=== PATIENT | female | born 1950 | race Caucasian/White ===

== ENCOUNTER 2016-06-02 11:26 | Inpatient (IN) | payer OTHER, MEDICARE ==
[~2016-06-02] VITALS: Ht 149.9 cm; Wt 73.0 kg
[~2016-06-02 11:26] MED LIST: HMLI SC; HYDR-5688 PO; HYDR12.56 PO; LISI-461 PO; METF1000 PO; METH10TA6 PO; PANT40TA PO; PXL/40 PO; SIMV40TA4 PO
[2016-06-02] MEDS ORDERED: INSPMPHMLG SC ×2 (11:44)
[2016-06-02] MEDS ORDERED: AZIT250T PO (11:44)
[2016-06-02] MEDS ORDERED: BENZ100C18 PO (11:44)
[2016-06-02 12:09] LABS: BASO % 0.4 %; BASO ABS # 0.04 K/uL (0-0.2); COMPLETE YES; EOS % 0.7 %; HEMATOCRIT 43.9 % (37-47); IG% 0.3 %; LYMPH % 20.9 %; LYMPH ABS # 2.37 K/uL (1.2-3.4); MEAN CELL VOLUME 87.6 fL (80-100); MEAN CORPUSCULAR HEMOGLOBIN 31.1 pg (25-34); MEAN CORPUSCULAR HGB CONC 35.5 g/dl (32-36); MEAN PLATELET VOLUME 10.8 fL (7.4-10.4); MONO % 10.3 %; NEUT % 67.4 %; PLATELET COUNT 331 K/uL (130-400); RED BLOOD COUNT 5.01 M/uL (4.2-5.4); WHITE BLOOD COUNT 11.32 K/uL (4.8-10.8)
[2016-06-02] MEDS ORDERED: SODIUM CHLORIDE 0.9% 500ML 500 ML IV STA (12:14)
[2016-06-02 12:23] LABS: PARTIAL THROMBOPLASTIN RATIO 0.9; PROTHROMBIN TIME (PATIENT) 11.1 SECONDS (9.0-12.0)
[2016-06-02 12:35] LABS: CREATININE 1.1 mg/dl (0.60-1.20)
[2016-06-02 12:36] LABS: ALB/GLOB RATIO 0.8 (0.9-2); BUN/CREATININE RATIO 14.5 (10-20); CALCIUM 9.5 mg/dl (8.5-10.1); POTASSIUM 3.9 mmol/L (3.5-5.1)
--- NOTE | 2016-06-02 12:42 | DIAGNOSTIC IMAGING REPORT ---
CHEST ONE VIEW PORTABLE CLINICAL HISTORY: Shortness of breath COMPARISON STUDY: 07/17/2015 FINDINGS: The cardiac and mediastinal contours are normal. There is no evidence of focal pulmonary consolidation. There is no evidence of failure. No pleural effusions are visualized.[ IMPRESSION: No active disease in the chest. Electronically signed by: Darnell Carvajal M.D. 06/02/2016 12:41 PM Dictated Date/Time: 06/02/2016 12:40 PM
--- NOTE | 2016-06-02 12:47 | EMERGENCY ROOM VISIT NOTE ---
History Report prepared by Janette: Petey Adam Under the Supervision of: Dr. Rahul Mccarty M.D. First contact with patient: 12:08 Chief Complaint: FLU LIKE SX Stated Complaint: FLU SYMPTOMS History of Present Illness The patient is a 65 year old female who presents to the Emergency Room with complaints of a constant cough for the past two weeks. The patient additionally complains of having a headache. She states that she is coughing up some yellowish brown mucous. She additionally states that she hasn't taken her insulin for the past two weeks, and her sugars have been high. The patient denies any smoking. She additionally states that she has been urinating frequently, and she is always thirsty. Source of History: patient Onset: a week ago Position: other (global) Quality: other (cough) Timing: constant Associated Symptoms: + headache Review of Systems See HPI for pertinent positives & negatives. A total of 10 systems reviewed and were otherwise negative. Past Medical & Surgical Medical Problems: (1) Anxiety State Nos (2) Diabetes (3) Diabetes mellitus, type 2 (4) Dyslipidemia (5) Esophageal Reflux (6) GERD (gastroesophageal reflux disease) (7) Hyperglycemia (8) Hyperlipidemia Nec/Nos (9) Hypertension (10) Hypertension Nos (11) Hyperthyroidism (12) Hypothyroidism Nos Surgical Problems: (1) Hx of cholecystectomy (2) Rotator cuff rupture (3) Status post cholecystectomy Family History Diabetes mellitus FHx: cancer FHx: gallbladder disease Hypertension Social History Smoking Status: Never Smoker Alcohol Use: none Drug Use: none Marital Status: Housing Status: lives with family Current/Historical Medications Scheduled Atorvastatin (Atorvastatin Calcium), 40 MG PO DAILY Azithromycin (Zithromax), 250 MG PO DAILY Hydrochlorothiazide (Hctz), 12.5 MG PO DAILY Insulin Lispro Protamine & Lis (Humalog Mix 75/25 Kwikpen), 0 SQ UD Lisinopril (Zestril), 10 MG PO DAILY Metformin Hcl (Glucophage), 1,000 MG PO BID Methimazole (Tapazole), 10 MG PO DAILY Pantoprazole (Protonix), 40 MG PO DAILY Paroxetine (Paxil), 40 MG PO DAILY Scheduled PRN Benzonatate (Tessalon Perles), 100 MG PO TID PRN for Cough Allergies Coded Allergies: No Known Allergies (Unverified , 03/19/16) Physical Exam Vital Signs Date Time Temp Pulse Resp B/P Pulse Ox O2 Delivery O2 Flow Rate FiO2 06/02/16 15:00 100 20 136/96 100 Room Air 06/02/16 13:30 95 20 147/92 96 Room Air 06/02/16 12:08 95 Room Air 06/02/16 12:04 103 06/02/16 11:29 36.3 101 16 174/108 98 Room Air Physical Exam GENERAL: Patient is in mild distress HEENT: No acute trauma, normocephalic atraumatic, mucous membranes dry, no nasal congestion, no scleral icterus. NECK: No stridor, no adenopathy, no meningismus, trachea is midline. LUNGS: Junky cough with crackles in the bilateral lungs. HEART: Mildly tachycardic rate and regular rhythm. No murmurs, rubs, gallops appreciated. ABDOMEN: Soft, nontender, bowel sounds positive, no masses appreciated, no peritonitis. BACK: No midline tenderness, no CVA tenderness EXTREMITIES: Normal motion all extremities, no cyanosis, no edema. NEUROLOGIC: Alert and oriented, no acute motor or sensory deficits, no focal weakness, cranial nerves grossly intact. SKIN: No rash, no jaundice, no diaphoresis. Medical Decision & Procedures ER Provider Diagnostic Interpretation: X ray results are stated below per my interpretation and the radiologist's interpretation. CHEST ONE VIEW PORTABLE CLINICAL HISTORY: Shortness of breath COMPARISON STUDY: 07/17/2015 FINDINGS: The cardiac and mediastinal contours are normal. There is no evidence of focal pulmonary consolidation. There is no evidence of failure. No pleural effusions are visualized.[ IMPRESSION: No active disease in the chest. Electronically signed by: Darnell Carvajal M.D. 06/02/2016 12:41 PM Dictated Date/Time: 06/02/2016 12:40 PM Laboratory Results 06/02/16 11:55 Red Blood Count 5.01, Mean Corpuscular Volume 87.6, Mean Corpuscular Hemoglobin 31.1, Mean Corpuscular Hemoglobin Concent 35.5, Mean Platelet Volume 10.8, Neutrophils (%) (Auto) 67.4, Lymphocytes (%) (Auto) 20.9, Monocytes (%) (Auto) 10.3, Eosinophils (%) (Auto) 0.7, Basophils (%) (Auto) 0.4, Neutrophils # (Auto ) 7.63, Lymphocytes # (Auto) 2.37, Monocytes # (Auto) 1.17, Eosinophils # (Auto ) 0.08, Basophils # (Auto) 0.04 06/02/16 11:55 Test 06/02/16 11:52 06/02/16 11:53 06/02/16 11:55 Influenza Type A Antigen Neg for Influ A (NEG) Influenza Type B Antigen Neg for Influ B (NEG) Urine Color YELLOW Urine Appearance CLEAR (CLEAR) Urine pH 5.0 (4.5-7.5) Urine Specific [place] 1.035 (1.000-1.030) Urine Protein NEG (NEG) Urine Glucose (UA) 3+ (NEG) Urine Ketones 2+ (NEG) Urine Occult Blood NEG (NEG) Urine Nitrite NEG (NEG) Urine Bilirubin NEG (NEG) Urine Urobilinogen NEG (NEG) Urine Leukocyte Esterase NEG (NEG) Urine WBC (Auto) 1-5 /hpf (0-5) Urine RBC (Auto) 0-4 /hpf (0-4) Urine Hyaline Casts (Auto) 0 /lpf (0-5) Urine Epithelial Cells (Auto) 20-30 /lpf (0-5) Urine Bacteria (Auto) NEG (NEG) White Blood Count 11.32 K/uL (4.8-10.8) Red Blood Count 5.01 M/uL (4.2-5.4) Hemoglobin 15.6 g/dL (12.0-16.0) Hematocrit 43.9 % (37-47) Mean Corpuscular Volume 87.6 fL (80-100) Mean Corpuscular Hemoglobin 31.1 pg (25-34) Mean Corpuscular Hemoglobin Concent 35.5 g/dl (32-36) Platelet Count 331 K/uL (130-400) Mean Platelet Volume 10.8 fL (7.4-10.4) Neutrophils (%) (Auto) 67.4 % Lymphocytes (%) (Auto) 20.9 % Monocytes (%) (Auto) 10.3 % Eosinophils (%) (Auto) 0.7 % Basophils (%) (Auto) 0.4 % Neutrophils # (Auto) 7.63 K/uL (1.4-6.5) Lymphocytes # (Auto) 2.37 K/uL (1.2-3.4) Monocytes # (Auto) 1.17 K/uL (0.11-0.59) Eosinophils # (Auto) 0.08 K/uL (0-0.5) Basophils # (Auto) 0.04 K/uL (0-0.2) RDW Standard Deviation 39.1 fL (36.4-46.3) RDW Coefficient of Variation 12.3 % (11.5-14.5) Immature Granulocyte % (Auto) 0.3 % Immature Granulocyte # (Auto) 0.03 K/uL (0.00-0.02) Prothrombin Time 11.1 SECONDS (9.0-12.0) Prothromb Time International Ratio 1.0 (0.9-1.1) Activated Partial Thromboplast Time 23.5 SECONDS (21.0-31.0) Partial Thromboplastin Ratio 0.9 Anion Gap 13.0 mmol/L (3-11) Est Creatinine Clear Calc Drug Dose 43.8 ml/min Estimated GFR () 60.6 Estimated GFR (Non- 52.3 BUN/Creatinine Ratio 14.5 (10-20) Calcium Level 9.5 mg/dl (8.5-10.1) Total Bilirubin 0.5 mg/dl (0.2-1) Aspartate Amino Transf (AST/SGOT) 6 U/L (15-37) Alanine Aminotransferase (ALT/SGPT) 15 U/L (12-78) Alkaline Phosphatase 160 U/L (45-117) Total Protein 8.6 gm/dl (6.4-8.2) Albumin 3.7 gm/dl (3.4-5.0) Globulin 4.9 gm/dl (2.5-4.0) Albumin/Globulin Ratio 0.8 (0.9-2) Beta-Hydroxybutyric Acid 32.47 mg/dL (0.2-2.81) Laboratory results as reviewed by me. Medications Administered Medications (Trade) Dose Ordered Sig/Junaid Route Start Time Stop Time Status Last Admin Dose Admin Sodium Chloride (Nss 500ml) 500 ml @ 999 mls/hr Q31M STAT IV 06/02/16 12:14 06/02/16 12:44 DC 06/02/16 12:22 999 MLS/HR Insulin Human Regular 10 units 10 units NOW STAT IV 06/02/16 13:15 06/02/16 13:16 DC 06/02/16 13:35 10 UNITS Sodium Chloride (Nss 1000ml) 1,000 ml @ 75 mls/hr [id number] STAT IV 06/02/16 13:31 06/02/16 16:19 DC 06/02/16 13:36 75 MLS/HR Azithromycin (Zithromax Tab) 500 mg NOW STAT PO 06/02/16 14:53 06/02/16 14:54 DC 06/02/16 15:34 500 MG ECG Indication: other (flu like symptoms) Rate (beats per minute): 82 Rhythm: normal sinus Findings: no acute ischemic change, no ectopy ED Course 1210: The patient was evaluated in room C12. A complete history and physical exam was performed. 1214: Sodium Chloride 500 ml @ 999 mls/hr IV 1315: novoLIN-R U-100 per unit 10units IV 1331: Sodium Chloride 1000 ml @ 75 mls/hr IV 1445: I reevaluated the patient, and she was resting. 1452: I discussed the patient's case with Dr. Fong, and he feels that the patient will need to be brought into the hospital for better blood glucose management. 1453: Azithromycin Tab 500mg PO Medical Decision Differential: Infectious, Reactive Airway Disease, Pneumonia, Pneumothorax, COPD , CHF, ACS, Pulmonary Embolism, MSK, GI, Dissection, amongst other etiologies entertained. 65 yr old female arrives for evaluation of cough, though admits also elevated BG and increased urination at home. CXR clear and UA with ketones/glucose. BG is 600 with elevated beta though normal CO2 thus I feel she is not DKA. She was given fluids and IV insulin with mild improvement in BG though still quite elevated. Given unable to get this under control at home will bring in for further treatment/evaluation. No evidence of pneumonia and without significant wheezing would avoid steroids in this patient with significantly elevated blood glucose. Stable and in no distress. Consults Time Called: 1450 Consulting Physician: Dr. Fong Returned Call: [phone] I discussed the patient's case with Dr. Fong, and he feels that the patient will need to be brought into the hospital for better blood glucose management. Impression Primary Impression: Bronchitis Additional Impression: Hyperglycemia Scribe Attestation The scribe's documentation has been prepared under my direction and personally reviewed by me in its entirety. I confirm that the note above accurately reflects all work, treatment, procedures, and medical decision making performed by me. Departure Information Dispostion Being Evaluated By Hospitalist Referrals No Doctor, Assigned (PCP) Problem Qualifiers
[2016-06-02 12:48] LABS: BETA-HYDROXYBUTYRATE 32.47 mg/dL (0.2-2.81)
[2016-06-02] MEDS ORDERED: NovoLIN-R INSULIN PER UNIT CHARGE IV STA (13:15)
[2016-06-02] MEDS ORDERED: SODIUM CHLORIDE 0.9% 1000ML 1,000 ML IV STA (13:31)
[2016-06-02 14:00] LABS: URINE APPEARANCE CLEAR (CLEAR); URINE BILIRUBIN NEG (NEG); URINE COLOR YELLOW; URINE EPITHELIAL CELL AUTO 20-30 /lpf (0-5); URINE NITRITE NEG (NEG); URINE SPECIFIC GRAVITY 1.035 (1.000-1.030); UROBILINOGEN NEG (NEG); ZZUR CULT IF INDIC CLEAN CATCH NO
[2016-06-02 14:04] LABS: MANUAL MICROSCOPIC REQUIRED? NO; REVIEW REQ? NO
[2016-06-02] MEDS ORDERED: AZITHROMYCIN 250 MG TAB PO STA (14:53)
--- NOTE | 2016-06-02 15:07 | History and Physical ---
History & Physical Date & Time of Service: Jun 02, 2016 at 15:08 . Chief Complaint: cough, polyuria, polydipsia . Primary Care Physician: Dr. Herman . History of Present Illness Source: patient, clinic records, hospital records 65-year-old female followed by Dr. Herman. History of hypertension, diabetes mellitus type 2, and other problems noted below. Diabetes has been managed with metformin and insulin, most recently Humalog Mix 75/25. She is the process of switching pharmacies and ran out of her insulin about 2 weeks ago. 6 days ago she developed a congested cough. Cough productive of brown sputum. No fever, wheezing, dyspnea, chest pain. She was seen in clinic yesterday and prescribed azithromycin for bronchitis. She started taking the azithromycin yesterday, but has not noticed any improvement of her cough yet. Over the past week or so she has been experiencing polyuria and polydipsia. She has not checked her blood sugars at home on a regular basis. Came to ED today because persistent cough. Found to have a random blood sugar greater than 600. Referred to Hospital Medicine service for admission and further management. . Past Medical/Surgical History Chronic Medical Problems: (1) Anxiety State Nos Status: Chronic (3) Diabetes mellitus, type 2 Status: Chronic (4) Dyslipidemia Status: Chronic (6) GERD (gastroesophageal reflux disease) Status: Chronic (9) Hypertension Status: Chronic (11) Hyperthyroidism Status: Chronic Surgical Problems: (2) Rotator cuff rupture Status: Resolved (3) Status post cholecystectomy Status: Chronic . Family History FATHER Diabetes mellitus Lung cancer Prostate cancer MOTHER Diabetes mellitus DAUGHTER Pulmonary embolism Social History Smoking Status: Never Smoker Alcohol Use: occasionally Drug Use: none Marital Status: Housing status: lives with family Immunizations History of Influenza Vaccine: No History of Tetanus Vaccine?: unknown History of Pneumococcal: Yes History of Hepatitis B Vaccine: No Multi-Drug Resistant Organisms History of MDRO: No Allergies Coded Allergies: No Known Allergies (Unverified , 03/19/16) Home Medications Scheduled Atorvastatin (Atorvastatin Calcium), 40 MG PO DAILY Azithromycin (Zithromax), 250 MG PO DAILY Hydrochlorothiazide (Hctz), 12.5 MG PO DAILY Insulin Lispro Protamine & Lis (Humalog Mix 75/25 Kwikpen), 0 SQ UD Lisinopril (Zestril), 10 MG PO DAILY Metformin Hcl (Glucophage), 1,000 MG PO BID Methimazole (Tapazole), 10 MG PO DAILY Pantoprazole (Protonix), 40 MG PO DAILY Paroxetine (Paxil), 40 MG PO DAILY Scheduled PRN Benzonatate (Tessalon Perles), 100 MG PO TID PRN for Cough Review of Systems Constitutional: + weight loss (intentional), No chills, No fever Eyes: No diplopia, No worsening of vision ENT: + nasal symptoms, No hearing loss, No sore throat Respiratory: + problem reported (as noted above in HPI) Cardiovascular: No chest pain, No edema Abdomen: No GI bleeding, No diarrhea, No nausea, No pain, No vomiting Musculoskeletal: + joint pain Genitourinary - Female: No dysuria, No hematuria Neurologic: + weakness Psychiatric: + depression symptoms Endocrine: + excessive thirst, + excessive urination, + fatigue Hematologic / Lymphatic: No abnormal bleeding/bruising Integumentary: No itch, No new/changing skin lesions, No rash Physical Exam Vital Signs Date Time Temp Pulse Resp B/P Pulse Ox O2 Delivery O2 Flow Rate FiO2 06/02/16 13:30 95 20 147/92 96 Room Air 06/02/16 12:08 95 Room Air 06/02/16 12:04 103 06/02/16 11:29 36.3 101 16 174/108 98 Room Air General Appearance: WD/WN, no apparent distress Head: normocephalic, atraumatic Eyes: normal inspection, PERRL, EOMI, sclerae normal, + pertinent finding ( conjunctivae pink) ENT: hearing grossly normal, pharynx normal, + pertinent finding (edentulous, upper dentures) Neck: supple, no adenopathy, trachea midline, + thyroid abnormalities (thyroid prominent) Respiratory/Chest: + rhonchi (few), + wheezing (mild) Cardiovascular: regular rate, rhythm, no edema, no gallop, no JVD, no murmur, normal peripheral pulses Abdomen/GI: normal bowel sounds, non tender, soft, no organomegaly, no pulsatile mass Extremities/Musculoskelatal: normal inspection, no calf tenderness, normal capillary refill, no pedal edema, + pertinent finding (no diabetic foot lesions) Neurologic/Psych: perishable fruit inspector II-XII nml as tested (PERRL, EOMI, no facial palsy), no motor/sensory deficits (upper and lower extremities 5/5), alert, normal mood/ affect, oriented x 3 Skin: normal color, warm/dry, no rash Lymphatic: no adenopathy Diagnostics Laboratory Results Results Past 24 Hours Test 06/02/16 11:52 06/02/16 11:53 06/02/16 11:55 06/02/16 14:00 Range/Units Influenza Type A Antigen Neg for Influ A NEG Influenza Type B Antigen Neg for Influ B NEG Urine Color YELLOW Urine Appearance CLEAR CLEAR Urine pH 5.0 4.5-7.5 Urine Specific [place] 1.035 1.000-1.030 Urine Protein NEG NEG Urine Glucose (UA) 3+ NEG Urine Ketones 2+ NEG Urine Occult Blood NEG NEG Urine Nitrite NEG NEG Urine Bilirubin NEG NEG Urine Urobilinogen NEG NEG Urine Leukocyte Esterase NEG NEG Urine WBC (Auto) 1-5 0-5 /hpf Urine RBC (Auto) 0-4 0-4 /hpf Urine Hyaline Casts (Auto) 0 0-5 /lpf Urine Epithelial Cells (Auto) 20-30 0-5 /lpf Urine Bacteria (Auto) NEG NEG White Blood Count 11.32 4.8-10.8 K/uL Red Blood Count 5.01 4.2-5.4 M/uL Hemoglobin 15.6 12.0-16.0 g/dL Hematocrit 43.9 37-47 % Mean Corpuscular Volume 87.6 80-100 fL Mean Corpuscular Hemoglobin 31.1 25-34 pg Mean Corpuscular Hemoglobin Concent 35.5 32-36 g/dl Platelet Count 331 130-400 K/uL Mean Platelet Volume 10.8 7.4-10.4 fL Neutrophils (%) (Auto) 67.4 % Lymphocytes (%) (Auto) 20.9 % Monocytes (%) (Auto) 10.3 % Eosinophils (%) (Auto) 0.7 % Basophils (%) (Auto) 0.4 % Neutrophils # (Auto) 7.63 1.4-6.5 K/uL Lymphocytes # (Auto) 2.37 1.2-3.4 K/uL Monocytes # (Auto) 1.17 0.11-0.59 K/uL Eosinophils # (Auto) 0.08 0-0.5 K/uL Basophils # (Auto) 0.04 0-0.2 K/uL RDW Standard Deviation 39.1 36.4-46.3 fL RDW Coefficient of Variation 12.3 11.5-14.5 % Immature Granulocyte % (Auto) 0.3 % Immature Granulocyte # (Auto) 0.03 0.00-0.02 K/uL Prothrombin Time 11.1 9.0-12.0 SECONDS Prothromb Time International Ratio 1.0 0.9-1.1 Activated Partial Thromboplast Time 23.5 21.0-31.0 SECONDS Partial Thromboplastin Ratio 0.9 Sodium Level 131 136-145 mmol/L Potassium Level 3.9 3.5-5.1 mmol/L Chloride Level 94 98-107 mmol/L Carbon Dioxide Level 24 21-32 mmol/L Anion Gap 13.0 3-11 mmol/L Blood Urea Nitrogen 16 7-18 mg/dl Creatinine 1.10 0.60-1.20 mg/dl Est Creatinine Clear Calc Drug Dose 43.8 ml/min Estimated GFR () 60.6 Estimated GFR (Non- 52.3 BUN/Creatinine Ratio 14.5 10-20 Random Glucose 603 70-99 mg/dl Calcium Level 9.5 8.5-10.1 mg/dl Total Bilirubin 0.5 0.2-1 mg/dl Aspartate Amino Transf (AST/SGOT) 6 15-37 U/L Alanine Aminotransferase (ALT/SGPT) 15 12-78 U/L Alkaline Phosphatase 160 45-117 U/L Total Protein 8.6 6.4-8.2 gm/dl Albumin 3.7 3.4-5.0 gm/dl Globulin 4.9 2.5-4.0 gm/dl Albumin/Globulin Ratio 0.8 0.9-2 Beta-Hydroxybutyric Acid 32.47 0.2-2.81 mg/dL Bedside Glucose 426 70-90 mg/dl Diagnostic Radiology CHEST ONE VIEW PORTABLE FINDINGS: The cardiac and mediastinal contours are normal. There is no evidence of focal pulmonary consolidation. There is no evidence of failure. No pleural effusions are visualized. IMPRESSION: No active disease in the chest. Electronically signed by: Darnell Carvajal M.D. 06/02/2016 12:41 PM . EKG EKG performed at 12:20 reviewed and demonstrated normal sinus rhythm at 80/ minute, no acute ST or T-wave abnormalities. . Impression Assessment and Plan DM TYPE 2, POORLY CONTROLLED Random glucose in ED 603. UA showed 2+ ketones. Beta hydroxybutyrate elevated @ 32. Most likely cause of poor glycemic control is discontinuation of insulin 2 weeks ago because of pharmacy transition. Respiratory tract infection may be contributing factor. No apparent UTI, acute coronary syndrome, etc. Received fluids and IV insulin in ED. May need insulin drip if blood sugars do not improve rapidly. Otherwise, manage with Lantus and NovoLog during hospital stay with transition to her usual insulin therapy with Humalog Mix 75/25. Hold metformin during hospital stay. Check hemoglobin A1c. IV fluids. Monitor fluid status and electrolytes. Diabetes education. COUGH Productive cough for about 1 week, no associated fever. No infiltrates on chest x-ray. Nasopharyngeal swab for influenza A/B negative. No respiratory distress or hypoxia. Continue azithromycin which was started yesterday as outpatient. HYPERTENSION Usually managed with hydrochlorothiazide and lisinopril. Initial BP 174/108, repeat 147/92. Hold hydrochlorothiazide due to hyperglycemia and associated volume depletion. Continue lisinopril. Following titrate therapy. HYPERTHYROIDISM Check TSH. Continue methimazole. DYSLIPIDEMIA Continue atorvastatin. VTE PROPHYLAXIS Moderate risk for VTE. SQ enoxaparin. Ambulate. RESUSCITATION STATUS Discussed with patient. She does not have a living will. She would like resuscitation attempted in the event of a cardiopulmonary arrest if there is a reasonable chance of a meaningful recovery, but does not want prolonged extraordinary measures if prognosis is poor. Therefore, code status = "Level 1" (full resuscitation). DISPOSITION Admit to Med-Surg. Anticipate that patient will require at least 2 night stay. Expected discharge to home. Family Medicine follow-up with Dr. Herman. . VTE Prophylaxis Given or contraindicated: Enoxaparin (Lovenox)SQ
[2016-06-02] MEDS ORDERED: LPT40 PO (15:30)
[2016-06-02] MEDS ORDERED: INSU75IN2 SQ (15:32)
[2016-06-02 15:45] VITALS: BP 139/81; PULSE 108; TEMP 36.9; O2SAT 97
[2016-06-02] MEDS ORDERED: DEXTROSE 50% 50 ML SYR IV PRN (15:45)
[2016-06-02] MEDS ORDERED: GLUCOSE 40% GEL 15 GM TUBE PO PRN (15:45)
[2016-06-02] MEDS ORDERED: GLUCOSE 10 TABS/TUBE PO PRN (15:45)
[2016-06-02] MEDS ORDERED: GLUCAGON FOR INJ 1 MG VIAL SQ PRN (15:45)
[2016-06-02] MEDS: POTASSIUM CHLORIDE INJ 20 MEQ in LACTATED RINGER'S 1000ML 1,000 ML IV SCH ×2 (17:34→23:24)
[2016-06-02] MEDS: ACETAMINOPHEN 325 MG TAB PO PRN (18:06)
[2016-06-02] MEDS: GUAIFENESIN SUGAR FREE 100 MG/5 ML UDC PO PRN (18:11)
[2016-06-02] MEDS: INSULIN ASPART 100 UNITS/ML 3 ML PEN SC SCH ×3 (18:16→20:50)
[2016-06-02] MEDS: ENOXAPARIN 40 MG/0.4 ML SYR SQ SCH (20:49)
[2016-06-02] MEDS: INSULIN GLARGINE SOLOSTAR 100 UNITS/ML 3 ML PEN SC SCH (20:51)
[2016-06-02 22:39] LABS: BUN/CREATININE RATIO 16.2 (10-20); CALCIUM 9.2 mg/dl (8.5-10.1); CREATININE 0.94 mg/dl (0.60-1.20); MAGNESIUM 1.6 mg/dl (1.8-2.4); POTASSIUM 4.8 mmol/L (3.5-5.1)
[2016-06-02 23:14] LABS: BETA-HYDROXYBUTYRATE 29.17 mg/dL (0.2-2.81)
[2016-06-03 00:02] VITALS: BP 130/79; PULSE 91; TEMP 36.7; O2SAT 97
[2016-06-03] MEDS ORDERED: INSULIN ASPART 100 UNITS/ML 3 ML PEN SC ONE ×2 (01:00→16:00)
[2016-06-03] MEDS: GUAIFENESIN SUGAR FREE 100 MG/5 ML UDC PO PRN (05:45)
[2016-06-03] MEDS ORDERED: COUGH DROP (SUGAR FREE) LOZ 24 LOZ/1 BOX ONE (06:08)
[2016-06-03] MEDS: POTASSIUM CHLORIDE INJ 20 MEQ in LACTATED RINGER'S 1000ML 1,000 ML IV SCH ×3 (06:13→19:46)
[2016-06-03 06:49] LABS: BUN/CREATININE RATIO 14.2 (10-20); CREATININE 0.69 mg/dl (0.60-1.20); MAGNESIUM 1.6 mg/dl (1.8-2.4)
[2016-06-03 07:01] LABS: THYROID STIMULATING HORMONE 0.107 uIu/ml (0.300-4.500)
[2016-06-03] MEDS ORDERED: NURSING VERBAL MED ORDER ONE ×2 (07:15→15:45)
[2016-06-03] MEDS ORDERED: COUGH DROP (SUGAR FREE) LOZ 24 LOZ/1 BOX PO PRN (07:30)
[2016-06-03 08:11] VITALS: BP 122/83; PULSE 101; TEMP 36.9; O2SAT 97
[2016-06-03] MEDS: LISINOPRIL 10 MG TAB PO SCH (08:14)
[2016-06-03] MEDS: PAROXETINE 20 MG TAB PO SCH (08:14)
[2016-06-03] MEDS: PANTOprazole SOD 40 MG TAB PO SCH (08:14)
[2016-06-03] MEDS: METHIMAZOLE 5 MG TAB PO SCH (08:14)
[2016-06-03] MEDS: AZITHROMYCIN 250 MG TAB PO SCH (08:15)
[2016-06-03] MEDS: BENZONATATE 100MG CAP PO PRN (08:15)
[2016-06-03] MEDS: ATORVASTATIN 40 MG TAB PO SCH (08:16)
[2016-06-03] MEDS: INSULIN GLARGINE SOLOSTAR 100 UNITS/ML 3 ML PEN SC SCH ×2 (09:16→20:38)
[2016-06-03] MEDS: INSULIN ASPART 100 UNITS/ML 3 ML PEN SC SCH ×4 (09:16→20:38)
--- NOTE | 2016-06-03 10:00 | Progress Note ---
Internal Med Progress Note Date of Service: Jun 03, 2016. Provider Documentation: SUBJECTIVE: Patient is doing well- says feeling much better today Cough improving, no sputum production, no chest pain, sob, fever, chills, nausea , vomiting, abdominal pain Blood sugar in 200-300s range OBJECTIVE: Vital Signs-as noted below Exam: General-AAOX3, no distress Neck-Supple,. No JVD Lungs-AEBE, no wheezing, rhonchi Heart-S1, S2 normal, No murmurs Abdomen-Soft, non tender, non distended, BS present Extremities-No edema Neuro-No focal deficits Lab data as noted below. Diagnostic Radiology CHEST ONE VIEW PORTABLE FINDINGS: The cardiac and mediastinal contours are normal. There is no evidence of focal pulmonary consolidation. There is no evidence of failure. No pleural effusions are visualized. IMPRESSION: No active disease in the chest. Electronically signed by: Darnell Carvajal M.D. 06/02/2016 12:41 PM . EKG EKG performed at 12:20 reviewed and demonstrated normal sinus rhythm at 80/ minute, no acute ST or T-wave abnormalities. ASSESSMENT & PLAN: Assessment and Plan DM TYPE 2, POORLY CONTROLLED : Improved Random glucose in ED 603. ; UA showed 2+ ketones; Beta hydroxybutyrate elevated @ 32. AG- 7 on presentation and now up to 15. Most likely cause of poor glycemic control is discontinuation of insulin 2 weeks ago because of pharmacy transition. Respiratory tract infection may be contributing factor. No apparent UTI, acute coronary syndrome, etc. -Received fluids and IV insulin in ED. -On Lantus 10 units BID--> Increase to 15 units BID (Home : 30 and 25 units Humalog 75/25) .. -Hold metformin during hospital stay. -Check hemoglobin A1c- pending. Repeat BMP in 4 hours to check AGAP. -IV fluids. -Monitor fluid status and electrolytes. -Diabetes education consult placed and counseled too. COUGH Productive cough for about 1 week, no associated fever. -No infiltrates on chest x-ray. -Nasopharyngeal swab for influenza A/B negative. -No respiratory distress or hypoxia. -Continue azithromycin which was started on 06/01 as outpatient. HYPERTENSION Usually managed with hydrochlorothiazide and lisinopril. Hold hydrochlorothiazide due to hyperglycemia and associated volume depletion. -Continue lisinopril. -Following titrate therapy. HYPERTHYROIDISM TSH - 1.107 -Continue methimazole. DYSLIPIDEMIA -Continue atorvastatin. VTE PROPHYLAXIS -Moderate risk for VTE. -SQ enoxaparin. -Ambulate. RESUSCITATION STATUS Discussed by admitting physician She does not have a living will. She would like resuscitation attempted in the event of a cardiopulmonary arrest if there is a reasonable chance of a meaningful recovery, but does not want prolonged extraordinary measures if prognosis is poor. Code status = "Level 1" (full resuscitation). DISPOSITION Anticipate that patient will require at least 2 night stay. Expected discharge to home when stable Family Medicine follow-up with Dr. Herman. . Vital Signs: Date Time Temp Pulse Resp B/P Pulse Ox O2 Delivery O2 Flow Rate FiO2 06/03/16 08:11 36.9 101 18 122/83 97 Room Air 06/03/16 00:20 Room Air 06/03/16 00:02 36.7 91 20 130/79 97 Room Air 06/02/16 20:05 Room Air 06/02/16 15:53 99 20 142/95 100 06/02/16 15:45 36.9 108 18 139/81 97 Room Air 06/02/16 15:00 100 20 136/96 100 Room Air 06/02/16 13:30 95 20 147/92 96 Room Air 06/02/16 12:08 95 Room Air 06/02/16 12:04 103 06/02/16 11:29 36.3 101 16 174/108 98 Room Air Lab Results: Results Past 24 Hours Test 06/02/16 11:52 06/02/16 11:53 06/02/16 11:55 06/02/16 14:00 Range/Units Influenza Type A Antigen Neg for Influ A NEG Influenza Type B Antigen Neg for Influ B NEG Urine Color YELLOW Urine Appearance CLEAR CLEAR Urine pH 5.0 4.5-7.5 Urine Specific [place] 1.035 1.000-1.030 Urine Protein NEG NEG Urine Glucose (UA) 3+ NEG Urine Ketones 2+ NEG Urine Occult Blood NEG NEG Urine Nitrite NEG NEG Urine Bilirubin NEG NEG Urine Urobilinogen NEG NEG Urine Leukocyte Esterase NEG NEG Urine WBC (Auto) 1-5 0-5 /hpf Urine RBC (Auto) 0-4 0-4 /hpf Urine Hyaline Casts (Auto) 0 0-5 /lpf Urine Epithelial Cells (Auto) 20-30 0-5 /lpf Urine Bacteria (Auto) NEG NEG White Blood Count 11.32 4.8-10.8 K/uL Red Blood Count 5.01 4.2-5.4 M/uL Hemoglobin 15.6 12.0-16.0 g/dL Hematocrit 43.9 37-47 % Mean Corpuscular Volume 87.6 80-100 fL Mean Corpuscular Hemoglobin 31.1 25-34 pg Mean Corpuscular Hemoglobin Concent 35.5 32-36 g/dl Platelet Count 331 130-400 K/uL Mean Platelet Volume 10.8 7.4-10.4 fL Neutrophils (%) (Auto) 67.4 % Lymphocytes (%) (Auto) 20.9 % Monocytes (%) (Auto) 10.3 % Eosinophils (%) (Auto) 0.7 % Basophils (%) (Auto) 0.4 % Neutrophils # (Auto) 7.63 1.4-6.5 K/uL Lymphocytes # (Auto) 2.37 1.2-3.4 K/uL Monocytes # (Auto) 1.17 0.11-0.59 K/uL Eosinophils # (Auto) 0.08 0-0.5 K/uL Basophils # (Auto) 0.04 0-0.2 K/uL RDW Standard Deviation 39.1 36.4-46.3 fL RDW Coefficient of Variation 12.3 11.5-14.5 % Immature Granulocyte % (Auto) 0.3 % Immature Granulocyte # (Auto) 0.03 0.00-0.02 K/uL Prothrombin Time 11.1 9.0-12.0 SECONDS Prothromb Time International Ratio 1.0 0.9-1.1 Activated Partial Thromboplast Time 23.5 21.0-31.0 SECONDS Partial Thromboplastin Ratio 0.9 Sodium Level 131 136-145 mmol/L Potassium Level 3.9 3.5-5.1 mmol/L Chloride Level 94 98-107 mmol/L Carbon Dioxide Level 24 21-32 mmol/L Anion Gap 13.0 3-11 mmol/L Blood Urea Nitrogen 16 7-18 mg/dl Creatinine 1.10 0.60-1.20 mg/dl Est Creatinine Clear Calc Drug Dose 43.8 ml/min Estimated GFR () 60.6 Estimated GFR (Non- 52.3 BUN/Creatinine Ratio 14.5 10-20 Random Glucose 603 70-99 mg/dl Calcium Level 9.5 8.5-10.1 mg/dl Total Bilirubin 0.5 0.2-1 mg/dl Aspartate Amino Transf (AST/SGOT) 6 15-37 U/L Alanine Aminotransferase (ALT/SGPT) 15 12-78 U/L Alkaline Phosphatase 160 45-117 U/L Total Protein 8.6 6.4-8.2 gm/dl Albumin 3.7 3.4-5.0 gm/dl Globulin 4.9 2.5-4.0 gm/dl Albumin/Globulin Ratio 0.8 0.9-2 Beta-Hydroxybutyric Acid 32.47 0.2-2.81 mg/dL Bedside Glucose 426 70-90 mg/dl Test 06/02/16 15:13 06/02/16 17:07 06/02/16 20:07 06/02/16 21:15 Range/Units Bedside Glucose 264 281 329 70-90 mg/dl Sodium Level 134 136-145 mmol/L Potassium Level 4.8 3.5-5.1 mmol/L Chloride Level 100 98-107 mmol/L Carbon Dioxide Level 27 21-32 mmol/L Anion Gap 7.0 3-11 mmol/L Blood Urea Nitrogen 15 7-18 mg/dl Creatinine 0.94 0.60-1.20 mg/dl Est Creatinine Clear Calc Drug Dose 51.2 ml/min Estimated GFR () 73.3 Estimated GFR (Non- 63.2 BUN/Creatinine Ratio 16.2 10-20 Random Glucose 318 70-99 mg/dl Calcium Level 9.2 8.5-10.1 mg/dl Magnesium Level 1.6 1.8-2.4 mg/dl Beta-Hydroxybutyric Acid 29.17 0.2-2.81 mg/dL Test 06/03/16 00:59 06/03/16 05:22 06/03/16 05:38 Range/Units Bedside Glucose 252 70-90 mg/dl Sodium Level 140 136-145 mmol/L Potassium Level 4.0 3.5-5.1 mmol/L Chloride Level 104 98-107 mmol/L Carbon Dioxide Level 21 21-32 mmol/L Anion Gap 15.0 3-11 mmol/L Blood Urea Nitrogen 10 7-18 mg/dl Creatinine 0.69 0.60-1.20 mg/dl Est Creatinine Clear Calc Drug Dose 69.8 ml/min Estimated GFR () 105.1 Estimated GFR (Non- 90.7 BUN/Creatinine Ratio 14.2 10-20 Random Glucose 234 70-99 mg/dl Calcium Level 9.0 8.5-10.1 mg/dl Magnesium Level 1.6 1.8-2.4 mg/dl Thyroid Stimulating Hormone (TSH) 0.107 0.300-4.500 uIu/ml
[2016-06-03 10:35] VITALS: BP 129/74; PULSE 88; TEMP 36.7; O2SAT 96
[2016-06-03] MEDS: MAGNESIUM SULFATE 1GM / D5W 1 GM in PREMIXED IN D5W 100 ML IV SCH ×2 (10:47→12:19)
[2016-06-03] MEDS: ACETAMINOPHEN 325 MG TAB PO PRN ×2 (10:52→19:46)
[2016-06-03 14:57] LABS: BLOOD UREA NITROGEN 10 mg/dl (7-18); BUN/CREATININE RATIO 9.2 (10-20); CALCIUM 8.3 mg/dl (8.5-10.1); CARBON DIOXIDE 21 mmol/L (21-32); CHLORIDE 102 mmol/L (98-107); GLUCOSE 433 mg/dl (70-99); SODIUM 134 mmol/L (136-145)
[2016-06-03 15:07] LABS: BETA-HYDROXYBUTYRATE 19.09 mg/dL (0.2-2.81)
[2016-06-03] MEDS ORDERED: PHARMACY GLYCEMIC MGMT CONSULT SCH (16:31)
[2016-06-03] MEDS: ENOXAPARIN 40 MG/0.4 ML SYR SQ SCH (20:38)
--- NOTE | 2016-06-03 22:06 | Pharmacy Progress Note ---
Glycemic Control Intl Consult Date of Service Jun 03, 2016. Scope Glycemic Pharmacist consulted by Dr Allen on 06/03/16 for glycemic control and to write orders per [facility] inpatient glycemic control protocol Objective Weight (Kilograms): 73.000 Accuchecks BSG (last 24hrs): Test 06/03/16 00:59 06/03/16 05:22 06/03/16 07:54 06/03/16 11:28 Bedside Glucose 252 mg/dl (70-90) 262 mg/dl (70-90) 329 mg/dl (70-90) Random Glucose 234 mg/dl (70-99) Test 06/03/16 14:19 06/03/16 16:56 06/03/16 20:04 Random Glucose 433 mg/dl (70-99) Bedside Glucose 359 mg/dl (70-90) 181 mg/dl (70-90) Laboratory Data (last 24hrs) Test 06/03/16 05:22 06/03/16 05:38 06/03/16 14:19 06/03/16 15:10 Anion Gap 15.0 mmol/L 11.0 mmol/L BUN/Creatinine Ratio 14.2 9.2 Blood Urea Nitrogen 10 mg/dl 10 mg/dl Creatinine 0.69 mg/dl 1.10 mg/dl Potassium Level 4.0 mmol/L mmol/L 3.9 mmol/L Sodium Level 140 mmol/L 134 mmol/L HbA1c 06/01/16 Hgb A1c 15.0 06/03/16 Hgb A1c pending Recent Pertinent Medications Outpatient Anti-diabetic Regimen: * Humalog Mix 75%/25% 30 units before breakfast, 20 units before supper, Metformin 1Gm bid, but ran out of insulin 2 weeks ago when switching pharmacies * A1c = 15 % 06/01/16 The patient is currently receiving: * Basal insulin: Lantus 10 units every 12 hours, just increased to 15 units bid by MD * Correctional Insulin: Novolog Correction per scale ACHS Goal Range: Low 140 mg/dL - High 180 mg/dL Correction Factor: 30 mg/dL/unit * Prandial insulin: Per carb ratio of 1 unit per 15 grams CHO consumed * Oral Agents: none Risk Factors for Insulin Resistance: * Infection: bronchitis, on azithromycin po * IVF: LR + KCl @150 ml/hr, Magnesium sulfate mixed in D5W x2 * Diet: type 2 diabetic AHA Assessment & Plan ASSESSMENT: * ADA & AACE recommend a goal blood sugar range 140-180 mg/dl for the majority of critically ill & non-critically ill patients. However, more stringent targets may be selected in individual cases. * 65 yo type 2 diabetic, uncontrolled due to stopping insulin for 2 weeks. Basal insulin increased by MD. Will tighten Novolog correction and carb ratio and add BSG checks overnight. Will reassess in am. PLAN FOR INPATIENT GLYCEMIC CONTROL: * Holding outpatient oral diabetes medications * Basal insulin with LANTUS 15 units SQ BID * Correctional Insulin with NOVOLOG per scale ACHS or Q6hrs while NPO * Goal Range: Low 140 mg/dL - High 180 mg/dL * Correction Factor: 25 mg/dL/unit * Nutritional / Prandial insulin per carb ratio of 1 unit per 8 grams CHO consumed * Please note that the plan above was derived based on current level of insulin resistance and hospital stress. These recommendations are appropriate for inpatient admission only. Plan of care upon discharge will need to be reassessed to avoid potential outpatient hypo/hyperglycemia. Thank you.
[2016-06-04 00:20] VITALS: BP 130/75; PULSE 75; TEMP 36.8; O2SAT 96
[2016-06-04] MEDS: INSULIN ASPART 100 UNITS/ML 3 ML PEN SC SCH ×4 (00:20→12:10)
[2016-06-04] MEDS: POTASSIUM CHLORIDE INJ 20 MEQ in LACTATED RINGER'S 1000ML 1,000 ML IV SCH ×2 (02:27→09:28)
[2016-06-04 06:54] LABS: ESTIMATED AVERAGE GLUCOSE 392 mg/dl; HA1C FLAG Normal (Normal)
[2016-06-04 07:56] VITALS: BP 140/98; PULSE 80; TEMP 37; O2SAT 95
[2016-06-04] MEDS: BENZONATATE 100MG CAP PO PRN (07:57)
[2016-06-04 07:58] LABS: HEMATOCRIT 36.6 % (37-47); MEAN CELL VOLUME 90.8 fL (80-100); MEAN CORPUSCULAR HEMOGLOBIN 31.3 pg (25-34); MEAN CORPUSCULAR HGB CONC 34.4 g/dl (32-36); MEAN PLATELET VOLUME 10.8 fL (7.4-10.4); PLATELET COUNT 281 K/uL (130-400); RED BLOOD COUNT 4.03 M/uL (4.2-5.4); WHITE BLOOD COUNT 8.96 K/uL (4.8-10.8)
[2016-06-04] MEDS: AZITHROMYCIN 250 MG TAB PO SCH (07:58)
[2016-06-04] MEDS: PAROXETINE 20 MG TAB PO SCH (07:59)
[2016-06-04] MEDS: LISINOPRIL 10 MG TAB PO SCH (07:59)
[2016-06-04] MEDS: PANTOprazole SOD 40 MG TAB PO SCH (07:59)
[2016-06-04] MEDS: METHIMAZOLE 5 MG TAB PO SCH (07:59)
[2016-06-04] MEDS: ATORVASTATIN 40 MG TAB PO SCH (07:59)
--- NOTE | 2016-06-04 08:08 | Clinical Documentation Query ---
KATIUSKA Valladares : CLINICAL DOCUMENTATION QUERY Patient is a 65 year old female admitted for evaluation and treatment of poorly controlled type 2 DM and cough. Random glucose 603 in ED. UA demonstrated 2+ ketones, Beta hydroxybutyric acid 32. Anion gap increased to 15 from 7 on arrival. She is being treated with IVF, insulin, and monitored with serial chemistries. In your clinical opinion is this patient being managed for: ( ) Metabolic acidosis ( ) Other explanation of clinical findings (Please Explain) ( + ) Unable to determine (Please Define) ( ) Need to Discuss ( ) Not Agree The medical record reflects the following clinical findings, treatment, and risk factors. Clinical Indicators: Treatment: IVF, insulin, serial chemistries. Risk Factors: Uncontrolled DM, non-compliance with prescribed regimen Please clarify and document your clinical opinion in the progress notes and discharge summary. Terms such as "probable", "suspected", "likely", "questionable", "possible", or "still to be ruled out" are acceptable. IF IN AGREEMENT, YOU MUST DOCUMENT ABOVE DIAGNOSTIC STATEMENT IN DAILY PROGRESS NOTES AND DISCHARGE SUMMARY. This document is not part of the patient's record. Thank You, Rupert Smith, RN [phone]
[2016-06-04 08:26] LABS: BUN/CREATININE RATIO 11.5 (10-20); CALCIUM 8.6 mg/dl (8.5-10.1); CREATININE 0.54 mg/dl (0.60-1.20); MAGNESIUM 1.8 mg/dl (1.8-2.4); POTASSIUM 4.3 mmol/L (3.5-5.1)
[2016-06-04] MEDS: INSULIN GLARGINE SOLOSTAR 100 UNITS/ML 3 ML PEN SC SCH (09:02)
[2016-06-04 09:10] VITALS: O2SAT 95
[2016-06-04 09:28] VITALS: Ht 149.9 cm; Wt 73.0 kg
[2016-06-04] MEDS: ACETAMINOPHEN 325 MG TAB PO PRN (10:29)
--- NOTE | 2016-06-04 10:30 | Progress Note ---
Internal Med Progress Note Date of Service: Jun 04, 2016. Provider Documentation: SUBJECTIVE: Patient is doing well - says feeling much better today and eager to be discharged Cough improving, no sputum production, no chest pain, sob, fever, chills, nausea , vomiting, abdominal pain Blood sugar down to 170-180s now OBJECTIVE: Vital Signs-as noted below Exam: General-AAOX3, no distress Neck-Supple,. No JVD Lungs-AEBE, no wheezing, rhonchi Heart-S1, S2 normal, No murmurs Abdomen-Soft, non tender, non distended, BS present Extremities-No edema Neuro-No focal deficits Lab data as noted below. Diagnostic Radiology CHEST ONE VIEW PORTABLE FINDINGS: The cardiac and mediastinal contours are normal. There is no evidence of focal pulmonary consolidation. There is no evidence of failure. No pleural effusions are visualized. IMPRESSION: No active disease in the chest. Electronically signed by: Darnell Carvajal M.D. 06/02/2016 12:41 PM . EKG EKG performed at 12:20 reviewed and demonstrated normal sinus rhythm at 80/ minute, no acute ST or T-wave abnormalities. ASSESSMENT & PLAN: Assessment and Plan DM TYPE 2, POORLY CONTROLLED : Improved Random glucose in ED 603. ; UA showed 2+ ketones; Beta hydroxybutyrate elevated @ 32. AG- 7 on presentation, NO DKA noted. Most likely cause of poor glycemic control is discontinuation of insulin 2 weeks ago because of pharmacy transition. Respiratory tract infection may be contributing factor. No apparent UTI, acute coronary syndrome. -Received fluids and IV insulin in ED. -On Lantus 10 units BID--> Increased to 15 units BID (Home : 30 and 25 units Humalog 75/25) .. -Hold metformin during hospital stay. -Hemoglobin A1c- 15.1. -IV fluids- okay to discontinue -Diabetes education consult placed and counseled too. PLAN: Discussed plan with pharmacy as well. To continue with Humalog 75/25 30- 25 units as prior to home meds. Counseled about need to take it regularly, timely refills, Home blood glucose monitoring and life style modifications. Motivated. Diabetes education consult done. COUGH : Productive cough for about 1 week, no associated fever. -No infiltrates on chest x-ray. -Nasopharyngeal swab for influenza A/B negative. -No respiratory distress or hypoxia. -Continue azithromycin which was started on 06/01 as outpatient. HYPERTENSION Usually managed with hydrochlorothiazide and lisinopril. Hold hydrochlorothiazide due to hyperglycemia and associated volume depletion. -Continue lisinopril. Okay to restart HCTZ today -Following titrate therapy. HYPERTHYROIDISM TSH - 1.107 -Continue methimazole. DYSLIPIDEMIA -Continue atorvastatin. VTE PROPHYLAXIS -Moderate risk for VTE. -SQ enoxaparin. -Ambulate. RESUSCITATION STATUS Discussed by admitting physician She does not have a living will. She would like resuscitation attempted in the event of a cardiopulmonary arrest if there is a reasonable chance of a meaningful recovery, but does not want prolonged extraordinary measures if prognosis is poor. Code status = "Level 1" (full resuscitation). DISPOSITION OK to discharge home today. Eager to be discharged. Family Medicine follow-up with Dr. Herman. . Vital Signs: Date Time Temp Pulse Resp B/P Pulse Ox O2 Delivery O2 Flow Rate FiO2 06/04/16 09:10 95 Room Air 06/04/16 07:56 37.0 80 20 140/98 95 Room Air 06/04/16 00:25 Room Air 06/04/16 00:20 36.8 75 16 130/75 96 Room Air 06/03/16 20:15 Room Air 06/03/16 16:00 Room Air Lab Results: Results Past 24 Hours Test 06/03/16 11:28 06/03/16 14:19 06/03/16 15:10 06/03/16 16:56 Range/Units Bedside Glucose 329 359 70-90 mg/dl Sodium Level 134 136-145 mmol/L Potassium Level 3.9 3.5-5.1 mmol/L Chloride Level 102 98-107 mmol/L Carbon Dioxide Level 21 21-32 mmol/L Anion Gap 11.0 3-11 mmol/L Blood Urea Nitrogen 10 7-18 mg/dl Creatinine 1.10 0.60-1.20 mg/dl Est Creatinine Clear Calc Drug Dose 43.8 ml/min Estimated GFR () 60.6 Estimated GFR (Non- 52.3 BUN/Creatinine Ratio 9.2 10-20 Random Glucose 433 70-99 mg/dl Calcium Level 8.3 8.5-10.1 mg/dl Beta-Hydroxybutyric Acid 19.09 0.2-2.81 mg/dL Test 06/03/16 20:04 06/04/16 00:18 06/04/16 03:26 06/04/16 07:26 Range/Units Bedside Glucose 181 191 171 70-90 mg/dl White Blood Count 8.96 4.8-10.8 K/uL Red Blood Count 4.03 4.2-5.4 M/uL Hemoglobin 12.6 12.0-16.0 g/dL Hematocrit 36.6 37-47 % Mean Corpuscular Volume 90.8 80-100 fL Mean Corpuscular Hemoglobin 31.3 25-34 pg Mean Corpuscular Hemoglobin Concent 34.4 32-36 g/dl RDW Standard Deviation 42.6 36.4-46.3 fL RDW Coefficient of Variation 12.8 11.5-14.5 % Platelet Count 281 130-400 K/uL Mean Platelet Volume 10.8 7.4-10.4 fL Sodium Level 139 136-145 mmol/L Potassium Level 4.3 3.5-5.1 mmol/L Chloride Level 105 98-107 mmol/L Carbon Dioxide Level 26 21-32 mmol/L Anion Gap 8.0 3-11 mmol/L Blood Urea Nitrogen 6 7-18 mg/dl Creatinine 0.54 0.60-1.20 mg/dl Est Creatinine Clear Calc Drug Dose 89.2 ml/min Estimated GFR () 114.0 Estimated GFR (Non- 98.3 BUN/Creatinine Ratio 11.5 10-20 Random Glucose 197 70-99 mg/dl Calcium Level 8.6 8.5-10.1 mg/dl Magnesium Level 1.8 1.8-2.4 mg/dl Test 06/04/16 07:31 Range/Units Bedside Glucose 169 70-90 mg/dl
[2016-06-04] MEDS ORDERED: INSU75IN2 SQ (10:33)
[2016-06-04] MEDS ORDERED: METF1000 PO (10:33)
--- NOTE | 2016-06-04 10:37 | Discharge Summary ---
Discharge Summary Date of Service Jun 04, 2016. Discharge Summary Admission Date: Jun 02, 2016 at 15:09 Discharge Date: Jun 04, 2016 Discharge Disposition: Home Principal Diagnosis: 1. DM-2, Insulin dependent, uncontrolled 2. Hx of Recent Bronchitis Secondary Diagnoses/Problems: 1. Hypertension 2. Dyslipidemia Procedures: IV Fluids Blood glucose monitoring Insulin CXR Diabetes education Consultations: Diabetes education Pending Studies/Follow-Up: Instructions / Follow-Up Instructions / Follow-Up MEDICATION CHANGES: 1. No changes in medications 2. Continue with Insulin Humalog 75/25 - 30 units before breakfast 20 units before supper as per previous dose. MONITOR -Blood glucose monitoring as previously instructed. Take readings to PCP office during next office appt FOLLOW UP 1. Dr Herman on 06/08/16 at 2:10 PM Medication Reconciliation Continued Medications: Atorvastatin (Atorvastatin Calcium) 40 Mg Tab 40 MG PO DAILY Azithromycin (Zithromax) 250 Mg Tab 250 MG PO DAILY, #4 TAB Benzonatate (Tessalon Perles) 100 Mg Cap 100 MG PO TID PRN for Cough, CAP Hydrochlorothiazide (Hctz) 12.5 Mg Cap 12.5 MG PO DAILY, TAB Insulin Lispro Protamine & Lis (Humalog Mix 75/25 Kwikpen) 1 Inj Inj 0 SQ UD for 30 Days (This prescription has been renewed) 30 units before breakfast 20 units before supper Lisinopril (Zestril) 10 Mg Tab 10 MG PO DAILY, TAB Metformin Hcl (Glucophage) 1,000 Mg Tab 1000 MG PO BID for 30 Days, #60 TAB (This prescription has been renewed) Methimazole (Tapazole) 10 Mg Tab 10 MG PO DAILY Pantoprazole (Protonix) 40 Mg Tab 40 MG PO DAILY, TAB Paroxetine (Paxil) 40 Mg Tab 40 MG PO DAILY, TAB Admission Information HPI (per Admitting provider): 65-year-old female followed by Dr. Herman. History of hypertension, diabetes mellitus type 2, and other problems noted below. Diabetes has been managed with metformin and insulin, most recently Humalog Mix 75/25. She is the process of switching pharmacies and ran out of her insulin about 2 weeks ago. 6 days ago she developed a congested cough. Cough productive of brown sputum. No fever, wheezing, dyspnea, chest pain. She was seen in clinic yesterday and prescribed azithromycin for bronchitis. She started taking the azithromycin yesterday, but has not noticed any improvement of her cough yet. Over the past week or so she has been experiencing polyuria and polydipsia. She has not checked her blood sugars at home on a regular basis. Came to ED today because persistent cough. Found to have a random blood sugar greater than 600. Referred to Hospital Medicine service for admission and further management. . Physical Exam (per Admitting): General Appearance: WD/WN, no apparent distress Head: normocephalic, atraumatic Eyes: normal inspection, PERRL, EOMI, sclerae normal, + pertinent finding ( conjunctivae pink) ENT: hearing grossly normal, pharynx normal, + pertinent finding (edentulous , upper dentures) Neck: supple, no adenopathy, trachea midline, + thyroid abnormalities ( thyroid prominent) Respiratory/Chest: + rhonchi (few), + wheezing (mild) Cardiovascular: regular rate, rhythm, no edema, no gallop, no JVD, no murmur , normal peripheral pulses Abdomen/GI: normal bowel sounds, non tender, soft, no organomegaly, no pulsatile mass Extremities/Musculoskelatal: normal inspection, no calf tenderness, normal capillary refill, no pedal edema, + pertinent finding (no diabetic foot lesions) 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 ; UA showed 2+ ketones; Beta hydroxybutyrate elevated @ 32. Anion gap - 7 on presentation, NO DKA noted. Most likely cause of poor glycemic control is discontinuation of insulin 2 weeks ago because of pharmacy transition. Respiratory tract infection may be contributing factor. No apparent UTI, acute coronary syndrome. -Received fluids and IV insulin in ED. -On Lantus 10 units BID--> Increased to 15 units BID (Home : 30 and 25 units Humalog 75/25) .. -Hold metformin during hospital stay. -Hemoglobin A1c- 15.1. -IV fluids- Okay to discontinue -Diabetes education consult placed and counseled too. PLAN: Discussed plan with pharmacy as well. To continue with Humalog 75/25 30- 25 units as prior to home meds. Counseled about need to take it regularly, timely refills, Home blood glucose monitoring and life style modifications. Motivated. Diabetes education consult done. COUGH : Productive cough for about 1 week, no associated fever. -No infiltrates on chest x-ray. -Nasopharyngeal swab for influenza A/B negative. -No respiratory distress or hypoxia. -Continue azithromycin which was started on 06/01 as outpatient. HYPERTENSION Usually managed with hydrochlorothiazide and lisinopril. Hold hydrochlorothiazide due to hyperglycemia and associated volume depletion. -Continue lisinopril. Okay to restart HCTZ today -Following titrate therapy. HYPERTHYROIDISM TSH - 1.107 -Continue methimazole. DYSLIPIDEMIA -Continue atorvastatin. VTE PROPHYLAXIS -Moderate risk for VTE. -SQ enoxaparin. -Ambulate. RESUSCITATION STATUS Discussed by admitting physician She does not have a living will. She would like resuscitation attempted in the event of a cardiopulmonary arrest if there is a reasonable chance of a meaningful recovery, but does not want prolonged extraordinary measures if prognosis is poor. Code status = "Level 1" (full resuscitation). DISPOSITION OK to discharge home today. Eager to be discharged. Family Medicine follow-up with Dr. Herman. . Total time spent on discharge = 28 minutes This includes examination of the patient, discharge planning, medication reconciliation, and communication with other providers. Discharge Instructions Goal(s): Improve disease control, Prevent Disease Progression Activity Recommendations Activity Limitations: resume your previous activity . Instructions / Follow-Up Instructions / Follow-Up MEDICATION CHANGES: 1. No changes in medications 2. Continue with Insulin Humalog 75/25 - 30 units before breakfast 20 units before supper as per previous dose. MONITOR -Blood glucose monitoring as previously instructed. Take readings to PCP office during next office appt FOLLOW UP 1. Dr Herman on 06/08/16 at 2:10 PM Current Hospital Diet Patient's current hospital diet: AHA Diet (Heart Healthy), Diabetes Type 2 Diet Discharge Diet Recommended Diet: AHA Diet (Heart Healthy), Low Sodium Diet (2gm Na), Diabetes Type 2 Diet Pending Studies Studies pending at discharge: no Laboratory Results Hemoglobin A1c Test 06/03/16 05:38 Range/Units Estimated Average Glucose 392 mg/dl Hemoglobin A1c 15.3 H 4.5-5.6 % Medical Emergencies . Who to Call and When: Medical Emergencies: If at any time you feel your situation is an emergency, please call 911 immediately. . Non-Emergent Contact Non-Emergency issues call your: Primary Care Provider . . "Provider Documentation" section prepared by Alda Leger. VTE Core Measure Inpt VTE Proph given/why not?: Enoxaparin (Lovenox)SQ
[2016-06-04 10:42] VITALS: BP 140/98; PULSE 80; TEMP 37; O2SAT 95
== END 2016-06-04 12:44 | disposition home or self-care (01) | DRG 639 ==
LOC: ENRESERVTM → ENRESERVDT → C.EDB 11:27 → C.MS2W 15:09
PROVIDERS: ADMIT Hospitalist; ATTEND Internal Medicine
DX: E11.65 Type 2 diabetes mellitus with hyperglycemia (principal); E78.5 Hyperlipidemia, unspecified; E05.90 Thyrotoxicosis, unspecified without thyrotoxic crisis or storm; E86.1 Hypovolemia; F41.9 Anxiety disorder, unspecified; K21.9 Gastro-esophageal reflux disease without esophagitis; I10 Essential (primary) hypertension; R05 Cough; Z87.09 Personal history of other diseases of the respiratory system; Z79.4 Long term (current) use of insulin; Z79.899 Other long term (current) drug therapy

== ENCOUNTER 2016-12-15 14:34 | Inpatient (IN) | payer OTHER, MEDICARE ==
[~2016-12-15] VITALS: Ht 149.9 cm; Wt 74.8 kg
[~2016-12-15 14:34] MED LIST changes: +AZIT250T PO; +BENZ100C18 PO; -HMLI SC; -HYDR-5688 PO; +INSU75IN2 SQ; +LPT40 PO; -SIMV40TA4 PO
[2016-12-15] MEDS ORDERED: ONDANSETRON INJ 2 MG/ML 2 ML VIAL IV STA (14:51)
[2016-12-15] MEDS ORDERED: SODIUM CHLORIDE 0.9% 1000ML 1,000 ML IV STA (14:51)
[2016-12-15 15:09] LABS: BASO % 0.7 %; BASO ABS # 0.06 K/uL (0-0.2); COMPLETE YES; EOS % 0.8 %; HEMATOCRIT 43.8 % (37-47); IG% 0.3 %; LYMPH % 26.1 %; LYMPH ABS # 2.26 K/uL (1.2-3.4); MEAN CELL VOLUME 90.5 fL (80-100); MEAN CORPUSCULAR HEMOGLOBIN 30.6 pg (25-34); MEAN CORPUSCULAR HGB CONC 33.8 g/dl (32-36); MEAN PLATELET VOLUME 11.2 fL (7.4-10.4); NEUT % 63.1 %; PLATELET COUNT 369 K/uL (130-400); RED BLOOD COUNT 4.84 M/uL (4.2-5.4); WHITE BLOOD COUNT 8.67 K/uL (4.8-10.8)
[2016-12-15 15:20] LABS: PARTIAL THROMBOPLASTIN RATIO 0.8; PROTHROMBIN TIME (PATIENT) 10.7 SECONDS (9.0-12.0)
[2016-12-15 15:30] LABS: ALT/SGPT 12 U/L (12-78); AST/SGOT 12 U/L (15-37); BLOOD UREA NITROGEN 15 mg/dl (7-18); BUN/CREATININE RATIO 10.2 (10-20); CALCIUM 10.1 mg/dl (8.5-10.1); CARBON DIOXIDE 24 mmol/L (21-32); CHLORIDE 95 mmol/L (98-107); MAGNESIUM 1.5 mg/dl (1.8-2.4); POTASSIUM 3.8 mmol/L (3.5-5.1); SODIUM 133 mmol/L (136-145)
--- NOTE | 2016-12-15 15:30 | DIAGNOSTIC IMAGING REPORT ---
CHEST ONE VIEW PORTABLE CLINICAL HISTORY: EVALUATE WEAKNESS dyspnea COMPARISON STUDY: 06/02/2016 FINDINGS: The bones soft tissues and hemidiaphragms are normal. The cardiomediastinal silhouette is normal. The lungs are clear. The pulmonary vasculature is normal. IMPRESSION: Negative chest. The above report was generated using voice recognition software. It may contain grammatical, syntax or spelling errors. Electronically signed by: Yakov Dangelo M.D. 12/15/2016 3:29 PM Dictated Date/Time: 12/15/2016 3:29 PM
[2016-12-15] MEDS ORDERED: SODIUM CHLORIDE 0.9% 500ML 500 ML IV STA ×2 (15:33→17:22)
[2016-12-15 15:38] LABS: ALKALINE PHOSPHATASE 154 U/L (45-117); GLUCOSE 415 mg/dl (70-99); THYROID STIMULATING HORMONE 0.139 uIu/ml (0.300-4.500)
[2016-12-15 15:54] LABS: BETA-HYDROXYBUTYRATE 5.15 mg/dL (0.2-2.81)
--- NOTE | 2016-12-15 15:59 | DIAGNOSTIC IMAGING REPORT ---
HEAD WITHOUT CONTRAST (CT) CT DOSE: 537.48 mGy.cm HISTORY: Mental status change EVALUATE WEAKNESS TECHNIQUE: Multiaxial CT images of the head were performed without the use of intravenous contrast. A dose lowering technique was utilized adhering to the principles of ALARA. Comparison: None. Findings: The paranasal sinuses and mastoid air cells are clear. The calvarium and skull base are intact. The ventricles and sulci are within normal limits. There is no mass, hematoma, midline shift, or acute infarct. Impression: No acute intracranial abnormality. The above report was generated using voice recognition software. It may contain grammatical, syntax or spelling errors. Electronically signed by: Yakov Dangelo M.D. 12/15/2016 3:57 PM Dictated Date/Time: 12/15/2016 3:55 PM
[2016-12-15] MEDS ORDERED: NovoLIN-R INSULIN PER UNIT CHARGE IV STA (17:22)
[2016-12-15] MEDS ORDERED: MAGNESIUM SULFATE 1GM / D5W 1 GM BAG IV STA (17:22)
[2016-12-15] MEDS ORDERED: GLUCOSE 40% GEL 15 GM TUBE PO PRN (18:00)
[2016-12-15] MEDS ORDERED: DEXTROSE 50% 50 ML SYR IV PRN (18:00)
[2016-12-15] MEDS ORDERED: ACETAMINOPHEN 325 MG TAB PO PRN (18:00)
[2016-12-15] MEDS ORDERED: GLUCAGON FOR INJ 1 MG VIAL SQ PRN (18:00)
[2016-12-15] MEDS ORDERED: GLUCOSE 10 TABS/TUBE PO PRN (18:00)
[2016-12-15] MEDS ORDERED: ONDANSETRON INJ 2 MG/ML 2 ML VIAL IV PRN (18:00)
[2016-12-15] MEDS ORDERED: MAGNESIUM HYDROXIDE SUSP 30 ML UDC PO PRN (18:00)
[2016-12-15] MEDS ORDERED: ALUMINUM/MAGNESIUM/SIMETH (MAALOX MAX) 30 ML UDC PO PRN (18:00)
[2016-12-15 18:30] VITALS: O2SAT 97
[2016-12-15] MEDS ORDERED: PHARMACY GLYCEMIC MGMT CONSULT PRN (18:42)
--- NOTE | 2016-12-15 19:08 | Pharmacy Progress Note ---
Glycemic Control Intl Consult Date of Service Dec 15, 2016. Scope Glycemic Pharmacist consulted by Dr Romero on 12/15/16 for glycemic control and to write orders per [facility] inpatient glycemic control protocol Objective Weight (Kilograms): 77.40 Accuchecks BSG (last 24hrs): Test 12/15/16 14:45 Random Glucose 415 mg/dl (70-99) Laboratory Data (last 24hrs) Test 12/15/16 14:45 Anion Gap 14.0 mmol/L BUN/Creatinine Ratio 10.2 Blood Urea Nitrogen 15 mg/dl Creatinine 1.50 mg/dl Potassium Level 3.8 mmol/L Sodium Level 133 mmol/L White Blood Count 8.67 K/uL Red Blood Count 4.84 M/uL Hemoglobin 14.8 g/dL Hematocrit 43.8 % Mean Corpuscular Volume 90.5 fL Mean Corpuscular Hemoglobin 30.6 pg Mean Corpuscular Hemoglobin Concent 33.8 g/dl Platelet Count 369 K/uL Mean Platelet Volume 11.2 fL Neutrophils (%) (Auto) 63.1 % Lymphocytes (%) (Auto) 26.1 % Monocytes (%) (Auto) 9.0 % Eosinophils (%) (Auto) 0.8 % Basophils (%) (Auto) 0.7 % Neutrophils # (Auto) 5.47 K/uL Lymphocytes # (Auto) 2.26 K/uL Monocytes # (Auto) 0.78 K/uL Eosinophils # (Auto) 0.07 K/uL Basophils # (Auto) 0.06 K/uL Recent Pertinent Medications Outpatient Anti-diabetic Regimen: * Humalog 75/25 - take 30 units before breakfast and 20 units before supper * A1c = 15 % 06/01/16 Risk Factors for Insulin Resistance: * IVF: NS @ 125 mLs/hr * Diet: clear liquid, type 2 diabetic diet Assessment & Plan ASSESSMENT: * ADA & AACE recommend a goal blood sugar range 140-180 mg/dl for the majority of critically ill & non-critically ill patients. However, more stringent targets may be selected in individual cases. Will utilize more stringent goal of 110-140mg/dl based on patient age & comorbidities. Additionally, tighter glycemic control is warranted to facilitate infection healing. * Ms Mei is a 66 y/o F with a PMH of anxiety, GERD, HTN admitted with dizziness. She has had a head cold. She is somewhat well known to the glycemic service from an admission in May of this year. * The patient today presents with a similar presentation - elevated blood sugars treated with a one time dose of IV insulin. Will start similar regimen to previous admission, especially with Lantus. This seem to provide adequately controlled fasting blood sugars plus is slightly reduced from home dose. Will be slightly more aggressive with correctional insulin as this did not seem adequate in previous admission. PLAN FOR INPATIENT GLYCEMIC CONTROL: * Basal insulin with LANTUS 15 units SQ BID * Correctional Insulin with NOVOLOG per scale ACHS or Q6hrs while NPO * Goal Range: Low 110 mg/dL - High 140 mg/dL * Correction Factor: 20 mg/dL/unit * Nutritional / Prandial insulin per carb ratio of 1 unit per 7 grams CHO consumed * Please note that the plan above was derived based on current level of insulin resistance and hospital stress. These recommendations are appropriate for inpatient admission only. Plan of care upon discharge will need to be reassessed to avoid potential outpatient hypo/hyperglycemia. Thank you.
--- NOTE | 2016-12-15 19:17 | History and Physical ---
History & Physical Date & Time of Service: Dec 15, 2016 at 18:48 Chief Complaint: Lightheaded/Dizziness Primary Care Physician: Manuel Herman M.D. History of Present Illness Source: patient, family, clinic records, hospital records This is a 66 year old female with a PMH of insulin dependent DM2, HTN, hyperthyroidism, HLD with some non-compliance issues noted in the past presents with a sudden onset of dizziness, near syncope, and vomiting episode. 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 Denies any chest pain or shortness of breath during this episode. She was sent to [facility] and in the ER was noted to have dehydration/kidney injury; was given a few fluid boluses and she states she feels better. Has a slight frontal headache, but no visual changes, no dizziness now; no fevers/chills. Past Medical/Surgical History Medical Problems: (1) Anxiety State Nos Status: Chronic (2) Diabetes Status: Chronic (3) Diabetes mellitus, type 2 Status: Chronic (4) Dyslipidemia Status: Chronic (5) Esophageal Reflux Status: Chronic (6) GERD (gastroesophageal reflux disease) Status: Chronic (7) Hyperglycemia Status: Resolved (8) Hyperlipidemia Nec/Nos Status: Chronic (9) Hypertension Status: Chronic (10) Hypertension Nos Status: Chronic (11) Hyperthyroidism Status: Chronic (12) Hypothyroidism Nos Status: Chronic Surgical Problems: (1) Hx of cholecystectomy Status: Resolved (2) Rotator cuff rupture Status: Resolved (3) Status post cholecystectomy Status: Chronic Family History Diabetes mellitus FATHER MOTHER Lung cancer FATHER Prostate cancer FATHER Pulmonary embolism DAUGHTER Social History Smoking Status: Never Smoker Drug Use: none Marital Status: Housing status: lives with family Immunizations History of Influenza Vaccine: No History of Tetanus Vaccine?: unknown History of Pneumococcal: Yes History of Hepatitis B Vaccine: No Multi-Drug Resistant Organisms History of MDRO: No Allergies Coded Allergies: No Known Allergies (Unverified , 12/15/16) Home Medications Scheduled Atorvastatin (Atorvastatin Calcium), 40 MG PO DAILY Hydrochlorothiazide (Hctz), 12.5 MG PO DAILY Insulin Lispro Protamine & Lis (Humalog Mix 75/25 Kwikpen), 0 SQ UD Lisinopril (Zestril), 10 MG PO DAILY Metformin Hcl (Glucophage), 1,000 MG PO BID Methimazole (Tapazole), 10 MG PO DAILY Pantoprazole (Protonix), 40 MG PO DAILY Paroxetine (Paxil), 40 MG PO DAILY Scheduled PRN Benzonatate (Tessalon Perles), 100 MG PO TID PRN for Cough Review of Systems Constitutional: + weakness, No fever, No chills, No sweats, No weight loss, No fatigue Respiratory: No cough, No sputum, No shortness of breath Cardiovascular: No chest pain, No edema, No palpitations Abdomen: + nausea, + vomiting (one episode of vomiting), No pain, No diarrhea, No constipation, No GI bleeding Genitourinary - Female: No dysuria, No urinary frequency, No urinary urgency, No urinary incontinence, No urinary retention, No hematuria Neurologic: + weakness, + vertigo, + balance problems, No numbness/tingling Psychiatric: No depression symptoms Endocrine: No fatigue Hematologic / Lymphatic: No abnormal bleeding/bruising Integumentary: No rash Allergic / Immunologic: No environmental allergies, No seasonal allergies Physical Exam Vital Signs Date Time Temp Pulse Resp B/P (MAP) Pulse Ox O2 Delivery O2 Flow Rate FiO2 12/15/16 18:30 82 18 140/75 97 Room Air 12/15/16 17:59 84 18 136/84 97 Room Air 12/15/16 17:22 82 18 137/80 96 Room Air 12/15/16 15:29 84 16 113/69 95 Room Air 87 121/69 81 82/56 12/15/16 15:20 90 12/15/16 15:16 96 Room Air 12/15/16 14:43 36.4 82 18 108/67 96 Room Air General Appearance: no apparent distress Head: normocephalic, atraumatic Eyes: normal inspection, EOMI ENT: hearing grossly normal Neck: supple Respiratory/Chest: chest non-tender, lungs clear, normal breath sounds, no respiratory distress, no accessory muscle use Cardiovascular: regular rate, rhythm, no edema, no gallop, no JVD, no murmur, normal peripheral pulses Abdomen/GI: normal bowel sounds, non tender, soft Extremities/Musculoskelatal: no calf tenderness, normal capillary refill, no pedal edema Neurologic/Psych: field mechanic II-XII nml as tested, no motor/sensory deficits, alert, normal mood/affect, oriented x 3 Skin: + pertinent finding (cool skin) Lymphatic: no adenopathy Diagnostics Laboratory Results Results Past 24 Hours Test 12/15/16 14:45 Range/Units White Blood Count 8.67 4.8-10.8 K/uL Red Blood Count 4.84 4.2-5.4 M/uL Hemoglobin 14.8 12.0-16.0 g/dL Hematocrit 43.8 37-47 % Mean Corpuscular Volume 90.5 80-100 fL Mean Corpuscular Hemoglobin 30.6 25-34 pg Mean Corpuscular Hemoglobin Concent 33.8 32-36 g/dl Platelet Count 369 130-400 K/uL Mean Platelet Volume 11.2 7.4-10.4 fL Neutrophils (%) (Auto) 63.1 % Lymphocytes (%) (Auto) 26.1 % Monocytes (%) (Auto) 9.0 % Eosinophils (%) (Auto) 0.8 % Basophils (%) (Auto) 0.7 % Neutrophils # (Auto) 5.47 1.4-6.5 K/uL Lymphocytes # (Auto) 2.26 1.2-3.4 K/uL Monocytes # (Auto) 0.78 0.11-0.59 K/uL Eosinophils # (Auto) 0.07 0-0.5 K/uL Basophils # (Auto) 0.06 0-0.2 K/uL RDW Standard Deviation 41.7 36.4-46.3 fL RDW Coefficient of Variation 12.6 11.5-14.5 % Immature Granulocyte % (Auto) 0.3 % Immature Granulocyte # (Auto) 0.03 0.00-0.02 K/uL Prothrombin Time 10.7 9.0-12.0 SECONDS Prothromb Time International Ratio 1.0 0.9-1.1 Activated Partial Thromboplast Time 21.8 21.0-31.0 SECONDS Partial Thromboplastin Ratio 0.8 Sodium Level 133 136-145 mmol/L Potassium Level 3.8 3.5-5.1 mmol/L Chloride Level 95 98-107 mmol/L Carbon Dioxide Level 24 21-32 mmol/L Anion Gap 14.0 3-11 mmol/L Blood Urea Nitrogen 15 7-18 mg/dl Creatinine 1.50 0.60-1.20 mg/dl Est Creatinine Clear Calc Drug Dose 32.7 ml/min Estimated GFR () 41.4 Estimated GFR (Non- 35.7 BUN/Creatinine Ratio 10.2 10-20 Random Glucose 415 70-99 mg/dl Calcium Level 10.1 8.5-10.1 mg/dl Magnesium Level 1.5 1.8-2.4 mg/dl Total Bilirubin 0.7 0.2-1 mg/dl Direct Bilirubin 0.1 0-0.2 mg/dl Aspartate Amino Transf (AST/SGOT) 12 15-37 U/L Alanine Aminotransferase (ALT/SGPT) 12 12-78 U/L Alkaline Phosphatase 154 45-117 U/L Troponin I < 0.015 0-0.045 ng/ml Total Protein 8.6 6.4-8.2 gm/dl Albumin 3.7 3.4-5.0 gm/dl Lipase 172 73-393 U/L Beta-Hydroxybutyric Acid 5.15 0.2-2.81 mg/dL Thyroid Stimulating Hormone (TSH) 0.139 0.300-4.500 uIu/ml Diagnostic Radiology HEAD WITHOUT CONTRAST (CT) CT DOSE: 537.48 mGy.cm HISTORY: Mental status change EVALUATE WEAKNESS TECHNIQUE: Multiaxial CT images of the head were performed without the use of intravenous contrast. A dose lowering technique was utilized adhering to the principles of ALARA. Comparison: None. Findings: The paranasal sinuses and mastoid air cells are clear. The calvarium and skull base are intact. The ventricles and sulci are within normal limits. There is no mass, hematoma, midline shift, or acute infarct. Impression: No acute intracranial abnormality. CHEST ONE VIEW PORTABLE CLINICAL HISTORY: EVALUATE WEAKNESS dyspnea COMPARISON STUDY: 06/02/2016 FINDINGS: The bones soft tissues and hemidiaphragms are normal. The cardiomediastinal silhouette is normal. The lungs are clear. The pulmonary vasculature is normal. IMPRESSION: Negative chest. EKG Sinus rhythm with frequent Premature ventricular complexes Otherwise normal ECG Impression Assessment and Plan This is a 66 year old female with a PMH of insulin dependent DM2, HTN, hyperthyroidism, HLD presents with presyncope Presyncope multifactorial: dehydration, hyperglycemia, orthostasis, hypomagnesemia, r/o arrhythmia Head CT is negative EKG with no significant acute findings plan for this is to monitor in tele replace Mg, continue IVFs monitor blood sugars with improved control orthostatic vitals echo Insulin Dependent DM2 - uncontrolled compliance is an issue* - her last Ha1c = 15% will hold oral agents and will hold 75/25 insulin Lantus 15 units q12, sliding scale check Ha1c glycemic control consult Acute Kidney Injury secondary to dehydration IVFs; received 2L bolus already continue NS at 125mL/hr for now Hypomagnesemia likely secondary to vomiting episode replace and recheck in AM Orthostasis looks like she had a significant drop in blood pressure with standing this could be related to dehydration/volume depletion recheck orthostatic vitals in AM after rehydration with IVFs Hyperthyroidism TSH low; chronic issue continue methimazole DVT ppx subq heparin FULL CODE VTE Prophylaxis VTE Risk Assessment Done? Y/N: Yes Risk Level: Moderate
[2016-12-15 19:52] VITALS: BP 152/80; PULSE 87; TEMP 36.8; Ht 149.9 cm; Wt 74.8 kg
--- NOTE | 2016-12-15 21:17 | EMERGENCY ROOM VISIT NOTE ---
History Report prepared by Janette: Penny Keen Under the Supervision of: Dr. Dre Miramontes M.D. First contact with patient: 14:42 Chief Complaint: SYNCOPE (NEAR SYNCOPE) Stated Complaint: LIGHTHEADED/DIZZINESS History of Present Illness The patient is a 66 year old female who presents to the Emergency Room with complaints of an episode of dizziness [employer]. She presents to the ED by EMS. The patient was sitting on a stool today when her vision started to go jerez. She then started to feel dizzy. The room was spinning and she was lightheaded. She then abruptly started feeling nauseous and vomited. She felt better after lying down on the ground. She had been feeling well prior to this episode. The episode lasted for a couple minutes. She is currently feeling better. She has never experienced this before. She notes that she has had a head cold for the past week. She has a ringing in her ears which started with the cold. She denies any recent injury. Pt denies trouble speaking, LOC, headache, fevers, chills, diaphoresis, neck pain, chest pain, breathing difficulties, abdominal pain, back pain, melena, hematochezia, urinary symptoms, numbness, weakness, lymphadenopathy, rash, or other complaints. She has a history of diabetes and hypertension. She denies any history of stroke. Source of History: patient Onset: [employer] Position: other (global) Quality: other (dizziness) Timing: other (episodic) Modifying Factors (Relieving): other (lying down) Associated Symptoms: + nausea, + vomiting Note: Pt reports room spinning, lightheadedness, vision changes, ear ringing, head cold. Review of Systems See HPI for pertinent positives and negatives. A total of ten systems were reviewed and were otherwise negative. Past Medical & Surgical Medical Problems: (1) Anxiety State Nos (2) Dehydration (3) Diabetes (4) Diabetes mellitus, type 2 (5) Dyslipidemia (6) Esophageal Reflux (7) GERD (gastroesophageal reflux disease) (8) Hyperglycemia (9) Hyperglycemia (10) Hyperlipidemia Nec/Nos (11) Hypertension (12) Hypertension Nos (13) Hyperthyroidism (14) Hypothyroidism Nos (15) Pre-syncope Surgical Problems: (1) Hx of cholecystectomy (2) Rotator cuff rupture (3) Status post cholecystectomy Family History Diabetes mellitus FATHER MOTHER Lung cancer FATHER Prostate cancer FATHER Pulmonary embolism DAUGHTER Social History Smoking Status: Never Smoker Alcohol Use: none Drug Use: none Marital Status: Housing Status: lives with family Current/Historical Medications Scheduled Atorvastatin (Atorvastatin Calcium), 40 MG PO DAILY Hydrochlorothiazide (Hctz), 12.5 MG PO DAILY Insulin Lispro Protamine & Lis (Humalog Mix 75/25 Kwikpen), 0 SQ UD Lisinopril (Zestril), 10 MG PO DAILY Metformin Hcl (Glucophage), 1,000 MG PO BID Methimazole (Tapazole), 10 MG PO DAILY Pantoprazole (Protonix), 40 MG PO DAILY Paroxetine (Paxil), 40 MG PO DAILY Scheduled PRN Benzonatate (Tessalon Perles), 100 MG PO TID PRN for Cough Allergies Coded Allergies: No Known Allergies (Unverified , 12/15/16) Physical Exam Vital Signs Date Time Temp Pulse Resp B/P (MAP) Pulse Ox O2 Delivery O2 Flow Rate FiO2 12/15/16 17:22 82 18 137/80 96 Room Air 12/15/16 15:29 84 16 113/69 95 Room Air 87 121/69 81 82/56 12/15/16 15:20 90 12/15/16 15:16 96 Room Air 12/15/16 14:43 36.4 82 18 108/67 96 Room Air Physical Exam GENERAL: Awake, alert, well appearing, no distress HENT: Normocephalic, atraumatic. TM's normal. Oropharynx unremarkable. EYES: PERRL. EOMI. Normal conjunctiva. Sclera non-icteric. NECK: Supple. No nuchal rigidity. FROM. No JVD or bruit. RESPIRATORY: CTA CARDIAC: RRR. No murmur. ABDOMEN: Soft, non distended. No tenderness to palpation. No rebound or guarding. No masses. RECTAL: Deferred. MUSCULOSKELETAL: Unremarkable. No edema. No discoloration. Gross motor strength symmetric. NEURO: Cranial nerves 2-12 grossly intact. Normal sensorium. No sensory or motor deficits noted. Speech normal. No pronator drift. Negative [place]. SKIN: No rash or jaundice noted. LYMPH: No adenopathy. Medical Decision & Procedures ER Provider Diagnostic Interpretation: Radiology results as stated below per my review and radiologist interpretation: CHEST ONE VIEW PORTABLE CLINICAL HISTORY: EVALUATE WEAKNESS dyspnea COMPARISON STUDY: 06/02/2016 FINDINGS: The bones soft tissues and hemidiaphragms are normal. The cardiomediastinal silhouette is normal. The lungs are clear. The pulmonary vasculature is normal. IMPRESSION: Negative chest. The above report was generated using voice recognition software. It may contain grammatical, syntax or spelling errors. Electronically signed by: Yakov Dangelo M.D. 12/15/2016 3:29 PM Dictated Date/Time: 12/15/2016 3:29 PM HEAD WITHOUT CONTRAST (CT) CT DOSE: 537.48 mGy.cm HISTORY: Mental status change EVALUATE WEAKNESS TECHNIQUE: Multiaxial CT images of the head were performed without the use of intravenous contrast. A dose lowering technique was utilized adhering to the principles of ALARA. Comparison: None. Findings: The paranasal sinuses and mastoid air cells are clear. The calvarium and skull base are intact. The ventricles and sulci are within normal limits. There is no mass, hematoma, midline shift, or acute infarct. Impression: No acute intracranial abnormality. The above report was generated using voice recognition software. It may contain grammatical, syntax or spelling errors. Electronically signed by: Yakov Dangelo M.D. 12/15/2016 3:57 PM Dictated Date/Time: 12/15/2016 3:55 PM Laboratory Results 12/15/16 14:45 Red Blood Count 4.84, Mean Corpuscular Volume 90.5, Mean Corpuscular Hemoglobin 30.6, Mean Corpuscular Hemoglobin Concent 33.8, Mean Platelet Volume 11.2, Neutrophils (%) (Auto) 63.1, Lymphocytes (%) (Auto) 26.1, Monocytes (%) (Auto) 9.0, Eosinophils (%) (Auto) 0.8, Basophils (%) (Auto) 0.7, Neutrophils # (Auto) 5.47, Lymphocytes # (Auto) 2.26, Monocytes # (Auto) 0.78, Eosinophils # (Auto) 0.07, Basophils # (Auto) 0.06 12/15/16 14:45 Test 12/15/16 14:45 White Blood Count 8.67 K/uL (4.8-10.8) Red Blood Count 4.84 M/uL (4.2-5.4) Hemoglobin 14.8 g/dL (12.0-16.0) Hematocrit 43.8 % (37-47) Mean Corpuscular Volume 90.5 fL (80-100) Mean Corpuscular Hemoglobin 30.6 pg (25-34) Mean Corpuscular Hemoglobin Concent 33.8 g/dl (32-36) Platelet Count 369 K/uL (130-400) Mean Platelet Volume 11.2 fL (7.4-10.4) Neutrophils (%) (Auto) 63.1 % Lymphocytes (%) (Auto) 26.1 % Monocytes (%) (Auto) 9.0 % Eosinophils (%) (Auto) 0.8 % Basophils (%) (Auto) 0.7 % Neutrophils # (Auto) 5.47 K/uL (1.4-6.5) Lymphocytes # (Auto) 2.26 K/uL (1.2-3.4) Monocytes # (Auto) 0.78 K/uL (0.11-0.59) Eosinophils # (Auto) 0.07 K/uL (0-0.5) Basophils # (Auto) 0.06 K/uL (0-0.2) RDW Standard Deviation 41.7 fL (36.4-46.3) RDW Coefficient of Variation 12.6 % (11.5-14.5) Immature Granulocyte % (Auto) 0.3 % Immature Granulocyte # (Auto) 0.03 K/uL (0.00-0.02) Prothrombin Time 10.7 SECONDS (9.0-12.0) Prothromb Time International Ratio 1.0 (0.9-1.1) Activated Partial Thromboplast Time 21.8 SECONDS (21.0-31.0) Partial Thromboplastin Ratio 0.8 Anion Gap 14.0 mmol/L (3-11) Est Creatinine Clear Calc Drug Dose 32.7 ml/min Estimated GFR () 41.4 Estimated GFR (Non- 35.7 BUN/Creatinine Ratio 10.2 (10-20) Calcium Level 10.1 mg/dl (8.5-10.1) Magnesium Level 1.5 mg/dl (1.8-2.4) Total Bilirubin 0.7 mg/dl (0.2-1) Direct Bilirubin 0.1 mg/dl (0-0.2) Aspartate Amino Transf (AST/SGOT) 12 U/L (15-37) Alanine Aminotransferase (ALT/SGPT) 12 U/L (12-78) Alkaline Phosphatase 154 U/L (45-117) Troponin I < 0.015 ng/ml (0-0.045) Total Protein 8.6 gm/dl (6.4-8.2) Albumin 3.7 gm/dl (3.4-5.0) Lipase 172 U/L (73-393) Beta-Hydroxybutyric Acid 5.15 mg/dL (0.2-2.81) Thyroid Stimulating Hormone (TSH) 0.139 uIu/ml (0.300-4.500) Laboratory results reviewed by me Medications Administered Medications (Trade) Dose Ordered Sig/Junaid Route Start Time Stop Time Status Last Admin Dose Admin Sodium Chloride 1,000 ml @ 125 mls/hr Q8H STAT IV 12/15/16 14:51 12/15/16 19:24 DC 12/15/16 15:13 125 MLS/HR Ondansetron HCl (Zofran Inj) 4 mg NOW STAT IV 12/15/16 14:51 12/15/16 14:53 DC 12/15/16 15:13 4 MG Sodium Chloride 500 ml @ 999 mls/hr Q31M STAT IV 12/15/16 15:33 12/15/16 16:03 DC 12/15/16 15:41 999 MLS/HR Sodium Chloride 500 ml @ 999 mls/hr Q31M STAT IV 12/15/16 17:22 12/15/16 17:52 DC 12/15/16 17:51 999 MLS/HR Insulin Human Regular (novoLIN-R U-100 PER UNIT) 10 units NOW STAT IV 12/15/16 17:22 12/15/16 17:23 DC 12/15/16 17:54 10 UNITS Magnesium Sulfate (Magnesium Sulfate) 1 gm NOW STAT IV 12/15/16 17:22 12/15/16 17:23 DC 12/15/16 17:51 1 GM ECG Indication: syncope Rate (beats per minute): 88 Rhythm: sinus rhythm Findings: PVC (frequent), no acute ischemic change ED Course 1450: The patient was evaluated in room B5. A complete history and physical exam was performed. 1451: Zofran Inj 4 mg IV, NSS 1000 ml @ 125 mls/hr IV. 1532: The patient is orthostatic and hyperglycemic. 1533: NSS 500 ml @ 999 mls/hr IV. 1722: Magnesium Sulfate 1 gm IV, Insulin Human Regular 10 units IV, NSS 500 ml @ 999 mls/hr IV. 1723: Upon reexamination, the patient was resting comfortably. I discussed the test results and treatment plan with her. The patient will be evaluated for further management. 1741: I [facility] the [facility] The patient will be evaluated for further treatment and disposition. Medical Decision Triage Nursing notes reviewed. The patient's presentation and history were concerning for vomiting, syncope, and dizziness. Etiologies such as metabolic, infection, hypo/hyperglycemia, electrolyte abnormalities, cardiac sources, intracerebral event, toxicologic, neurologic, as well as others were entertained. The patient was evaluated. She had minimal symptoms upon evaluation in physical. She had no focal neurologic findings. ECG, x-ray, and head CT were unremarkable. Chemistry panel revealed hyperglycemia and dehydration. She had low magnesium. The patient was found to be orthostatic. She was hydrated. She is given IV insulin and IV magnesium. Given the constellation of symptoms, the abrupt onset without provocation, and her laboratory abnormalities further evaluation and management in the hospital was felt to be appropriate. [facility] The patient was evaluated in the Emergency Room for further evaluation. Medication Reconcilliation Current Medication List: was personally reviewed by me Blood Pressure Screening Patient's blood pressure: Normal blood pressure Blood pressure disposition: Did not require urgent referral Consults Time Called: 173 Consulting Physician: Dr. Romero [facility] Returned Call: [phone] Discussed the patient's case. The patient will be evaluated for further treatment and disposition. Impression Primary Impression: Near syncope Additional Impressions: Hyperglycemia Orthostasis Scribe Attestation The scribe's documentation has been prepared under my direction and personally reviewed by me in its entirety. I confirm that the note above accurately reflects all work, treatment, procedures, and medical decision making performed by me. Departure Information Dispostion Being Evaluated By Hospitalist Referrals No Doctor, Assigned (PCP) Patient Instructions [facility] Problem Qualifiers
[2016-12-15] MEDS: INSULIN ASPART 100 UNITS/ML 3 ML PEN SC SCH (21:59)
[2016-12-15] MEDS: HEPARIN SOD 5000 UNIT/0.5 ML CARP SQ SCH (22:00)
[2016-12-15] MEDS: INSULIN GLARGINE SOLOSTAR 100 UNITS/ML 3 ML PEN SC SCH (22:00)
[2016-12-15] MEDS: SODIUM CHLORIDE 0.9% 1000ML 1,000 ML IV SCH (22:05)
[2016-12-16 00:13] VITALS: BP 108/61; PULSE 81; TEMP 36.8; O2SAT 97
[2016-12-16] MEDS ORDERED: INSULIN ASPART 100 UNITS/ML 3 ML PEN SC SCH (02:00)
[2016-12-16] MEDS: SODIUM CHLORIDE 0.9% 1000ML 1,000 ML IV SCH ×2 (02:14→12:08)
[2016-12-16 02:35] LABS: MANUAL MICROSCOPIC REQUIRED? NO; REVIEW REQ? NO; URINE APPEARANCE CLEAR (CLEAR); URINE BILIRUBIN NEG (NEG); URINE COLOR YELLOW; URINE EPITHELIAL CELL AUTO 20-30 /lpf (0-5); URINE NITRITE NEG (NEG); URINE SPECIFIC GRAVITY 1.016 (1.000-1.030); UROBILINOGEN NEG (NEG)
[2016-12-16 04:15] VITALS: BP 97/53; PULSE 71; TEMP 36.9; O2SAT 94
[2016-12-16] MEDS: HEPARIN SOD 5000 UNIT/0.5 ML CARP SQ SCH ×2 (05:52→14:21)
[2016-12-16 05:55] LABS: HEMATOCRIT 37.9 % (37-47); MEAN CELL VOLUME 91.5 fL (80-100); MEAN CORPUSCULAR HGB CONC 32.7 g/dl (32-36); MEAN PLATELET VOLUME 10.2 fL (7.4-10.4); PLATELET COUNT 315 K/uL (130-400); RED BLOOD COUNT 4.14 M/uL (4.2-5.4); WHITE BLOOD COUNT 7.17 K/uL (4.8-10.8)
[2016-12-16 06:36] LABS: BLOOD UREA NITROGEN 13 mg/dl (7-18); BUN/CREATININE RATIO 15.4 (10-20); CALCIUM 8.6 mg/dl (8.5-10.1); CARBON DIOXIDE 31 mmol/L (21-32); CHLORIDE 106 mmol/L (98-107); CKMB/CK RATIO 1.8 (0-3.0); CREATININE 0.82 mg/dl (0.60-1.20); GLUCOSE 140 mg/dl (70-99); MAGNESIUM 1.9 mg/dl (1.8-2.4); POTASSIUM 3.7 mmol/L (3.5-5.1); SODIUM 141 mmol/L (136-145)
[2016-12-16 08:01] VITALS: BP 135/91; PULSE 86; TEMP 36.6; O2SAT 96
[2016-12-16] MEDS ORDERED: ASPIRIN 81 MG ECTAB PO SCH (09:00)
[2016-12-16] MEDS: INSULIN GLARGINE SOLOSTAR 100 UNITS/ML 3 ML PEN SC SCH (09:09)
[2016-12-16] MEDS: INSULIN ASPART 100 UNITS/ML 3 ML PEN SC SCH ×2 (09:09→12:09)
[2016-12-16 10:40] VITALS: BP 144/86; PULSE 80; TEMP 37.1; O2SAT 98
--- NOTE | 2016-12-16 13:52 | Pharmacy Progress Note ---
Glycemic: Assessment & Plan Date of Service Dec 16, 2016. Assessment & Plan BSGs ranging 140 - 205 mg/dl so far today. * Basal insulin: Lantus 15 units every 12 hours * Correctional Insulin: Novolog Correction per scale ACHS Goal Range: Low 110 mg/dL - High 140 mg/dL Correction Factor: 20 mg/dL/unit * Prandial insulin: Per carb ratio of 1 unit per 7 grams CHO consumed * Risk factors for insulin resistance are constant over the past 24hrs * Anticipating insulin regimen will need increased for the next 24hrs d/t : * Post-prandial BSGs are elevated/BSGs rise throughout the day therefore Tighten CR PLAN FOR INPATIENT GLYCEMIC CONTROL: * TIGHTEN CR to 1 unit per 5 gm CHO consumed Pharmacy will continue to monitor patient daily and write orders per [facility] inpatient glycemic control protocol. Thanks. * Please note that the plan above was derived based on current level of insulin resistance and hospital stress. These recommendations are appropriate for inpatient admission only. Plan of care upon discharge will need to be reassessed to avoid potential outpatient hypo/hyperglycemia.
--- NOTE | 2016-12-16 14:36 | ECHOCARDIOGRAM REPORT ---
*NOTICE TO RECEIVING CONSTITUTION PARTY AGENCY This information is strictly Confidential and protected under [place] law. [place] law prohibits you from making any further disclosure of this information unless further disclosure is expressly permitted by the written consent of the person to whom it pertains or is authorized by law. A general authorization for the release of medical or other information is not sufficient for this purpose. Hospital accepts no responsibility if the information is made available to any other person, INCLUDING THE PATIENT. Interpretation Summary * Name: CRISS LEGGETT Study Date: 12/16/2016 07:44 AM BP: 97/53 mmHg * Patient Location: ED HR: 81 * : 1950 (M/d/yyyy) Gender: Female Height: 59 in * Age: 66 yrs Ethnicity: CA Weight: 170 lb * Ordering Physician: Kimber Romero * Referring Physician: Self, Referred * Performed By: Laura Chan RCS * * Reason For Study: SYNCOPE * BSA: 1.7 m2 * -- Conclusions -- * There is normal left ventricular wall thickness. * Left ventricular systolic function is normal. * The LV Ejection Fraction = 60-65%. * No regional wall motion abnormalities noted. * The right ventricle is normal in size and function. * Doppler findings do not suggest pulmonary hypertension. * Diastolic dysfunction, Grade II (pseudonormalization pattern). * There is no significant valvular heart disease. * The coronary sinus is dilated. * Injections of contrast injected from IV access in the left upper extremity opacified the coronary sinus, consistent with a persistent left superior vena cava (benign anatomical variant that would need to be taken in to account if there became a need for left sided central venous access). Procedure Details * A complete two-dimensional transthoracic echocardiogram was performed (2D, M-mode, Doppler and color flow Doppler). Left Ventricle * The left ventricle is normal in size. * There is normal left ventricular wall thickness. * Ejection Fraction = 60-65%. * Left ventricular systolic function is normal. * The left ventricular wall motion is normal. * No regional wall motion abnormalities noted. Right Ventricle * The right ventricle is normal in size and function. * The right ventricular systolic function is normal as assessed by tricuspid annular plane systolic excursion (TAPSE) (normal >1.5 cm). Atria * The left atrial size is normal. * Right atrial size is normal. * No interatrial shunt was visible with the administration of agitated saline contrast. Mitral Valve * The mitral valve is normal. * There is no mitral valve stenosis. * Significant mitral regurgitation is absent. Tricuspid Valve * The tricuspid valve is normal. * There is no tricuspid stenosis. * Significant tricuspid regurgitation is absent. * Doppler findings do not suggest pulmonary hypertension. Aortic Valve * The aortic valve is trileaflet. * Aortic stenosis is absent. * There is no significant aortic regurgitation. Pulmonic Valve * The pulmonary valve is not well seen, but the Doppler examination is normal without significant regurgitation or stenosis. Great Vessels * The aortic root and proximal ascending aorta are normal sized. Pericardium/Pleural * There is no pericardial effusion. Great Vessels * Normal inferior vena cava diameter and respiratory variation suggests normal central venous pressure. * The coronary sinus is dilated. Injections of contrast injected from IV access in the left upper extremity opacified the coronary sinus, consistent with a persistent left superior vena cava (benign anatomical variant that would need to be taken in to account if there became a need for left sided central venous access). Left Ventricular Diastolic Function * Diastolic dysfunction, Grade II (pseudonormalization pattern). MMode 2D Measurements and Calculations IVSd 0.94 cm LVIDd 4.0 cm LVIDs 2.3 cm LVPWd 0.97 cm IVS/LVPW 0.97 FS 43.4 % EDV(Teich) 70.3 ml ESV(Teich) 17.5 ml EF(Teich) 75.1 % EDV(cubed) 64.4 ml ESV(cubed) 11.7 ml EF(cubed) 81.9 % LV mass(C)d 119.6 grams LV mass(C)dI 69.5 grams/m\S\2 SV(Teich) 52.8 ml SI(Teich) 30.7 ml/m\S\2 SV(cubed) 52.7 ml SI(cubed) 30.6 ml/m\S\2 Ao root diam 2.8 cm Ao root area 5.9 cm\S\2 LVOT diam 2.0 cm LVOT area 3.1 cm\S\2 EDV(MOD-sp4) 39.5 ml ESV(MOD-sp4) 14.9 ml EF(MOD-sp4) 62.4 % EDV(MOD-sp2) 44.0 ml ESV(MOD-sp2) 9.0 ml EF(MOD-sp2) 79.5 % SV(MOD-sp4) 24.6 ml SI(MOD-sp4) 14.3 ml/m\S\2 SV(MOD-sp2) 35.0 ml SI(MOD-sp2) 20.3 ml/m\S\2 Doppler Measurements and Calculations Ao V2 max 115.6 cm/sec Ao max PG 5.3 mmHg Ao max PG (full) 2.4 mmHg JEANIE(V,A) 2.3 cm\S\2 JEANIE(V,D) 2.3 cm\S\2 LV V1 max PG 2.9 mmHg LV V1 max 85.2 cm/sec
--- NOTE | 2016-12-16 15:17 | Discharge Instructions ---
Discharge Instructions Date of Service Dec 16, 2016. Admission Reason for Admission: Dehydration, Hyperglycemia, Pre-Syncope Discharge Discharge Diagnosis / Problem: Presyncope, KEEGAN-resolved likely 2/2 dehydration Discharge Goals Goal(s): Prevent Disease Progression Activity Recommendations Activity Limitations: per Instructions/Follow-up section . Instructions / Follow-Up Instructions / Follow-Up Please take all medications as instructed. You will need a follow-up appointment with your primary care physician (PCP) within one week of discharge to ensure things are going well post-discharge. Someone will contact you on Saturday regarding scheduling this appointment. I strongly recommend that you take daily fasting blood sugars and keep a written log to bring to every doctor's appointment for review of your blood sugars at home. It was a pleasure taking care of you! Call if you have any questions or problems. You can reach a [facility] hospitalist on duty at [facility] 24 hours a day by calling [phone]. Take care of yourself. Ethel Huynh, [facility] Hospitalist Current Hospital Diet Patient's current hospital diet: Diabetes Type 2 Diet Discharge Diet Recommended Diet: AHA Diet (Heart Healthy), Diabetes Type 2 Diet Procedures Procedures Performed: Echo Pending Studies Studies pending at discharge: no Laboratory Results 12/16/16 05:36 12/16/16 05:36 Test 12/15/16 14:45 12/16/16 02:15 12/16/16 05:36 12/16/16 11:27 Immature Granulocyte % (Auto) 0.3 % White Blood Count 8.67 K/uL (4.8-10.8) Red Blood Count 4.84 M/uL (4.2-5.4) 4.14 M/uL (4.2-5.4) Hemoglobin 14.8 g/dL (12.0-16.0) Hematocrit 43.8 % (37-47) Mean Corpuscular Volume 90.5 fL (80-100) 91.5 fL (80-100) Mean Corpuscular Hemoglobin 30.6 pg (25-34) 30.0 pg (25-34) Mean Corpuscular Hemoglobin Concent 33.8 g/dl (32-36) 32.7 g/dl (32-36) Platelet Count 369 K/uL (130-400) Mean Platelet Volume 11.2 fL (7.4-10.4) 10.2 fL (7.4-10.4) Neutrophils (%) (Auto) 63.1 % Lymphocytes (%) (Auto) 26.1 % Monocytes (%) (Auto) 9.0 % Eosinophils (%) (Auto) 0.8 % Basophils (%) (Auto) 0.7 % Neutrophils # (Auto) 5.47 K/uL (1.4-6.5) Lymphocytes # (Auto) 2.26 K/uL (1.2-3.4) Monocytes # (Auto) 0.78 K/uL (0.11-0.59) Eosinophils # (Auto) 0.07 K/uL (0-0.5) Basophils # (Auto) 0.06 K/uL (0-0.2) Immature Granulocyte # (Auto) 0.03 K/uL (0.00-0.02) Prothrombin Time 10.7 SECONDS (9.0-12.0) Prothromb Time International Ratio 1.0 (0.9-1.1) Activated Partial Thromboplast Time 21.8 SECONDS (21.0-31.0) Partial Thromboplastin Ratio 0.8 Total Bilirubin 0.7 mg/dl (0.2-1) Direct Bilirubin 0.1 mg/dl (0-0.2) Aspartate Amino Transf (AST/SGOT) 12 U/L (15-37) Alanine Aminotransferase (ALT/SGPT) 12 U/L (12-78) Alkaline Phosphatase 154 U/L (45-117) Total Protein 8.6 gm/dl (6.4-8.2) Albumin 3.7 gm/dl (3.4-5.0) Lipase 172 U/L (73-393) Beta-Hydroxybutyric Acid 5.15 mg/dL (0.2-2.81) Thyroid Stimulating Hormone (TSH) 0.139 uIu/ml (0.300-4.500) Urine Color YELLOW Urine Appearance CLEAR (CLEAR) Urine pH 5.0 (4.5-7.5) Urine Specific [place] 1.016 (1.000-1.030) Urine Protein NEG (NEG) Urine Glucose (UA) 3+ (NEG) Urine Ketones NEG (NEG) Urine Occult Blood NEG (NEG) Urine Nitrite NEG (NEG) Urine Bilirubin NEG (NEG) Urine Urobilinogen NEG (NEG) Urine Leukocyte Esterase TRACE (NEG) Urine WBC (Auto) 1-5 /hpf (0-5) Urine RBC (Auto) 0-4 /hpf (0-4) Urine Hyaline Casts (Auto) 1-5 /lpf (0-5) Urine Epithelial Cells (Auto) 20-30 /lpf (0-5) Urine Bacteria (Auto) NEG (NEG) RDW Standard Deviation 42.6 fL (36.4-46.3) RDW Coefficient of Variation 12.7 % (11.5-14.5) Anion Gap 4.0 mmol/L (3-11) Est Creatinine Clear Calc Drug Dose 58.7 ml/min Estimated GFR () 85.8 Estimated GFR (Non- 74.0 BUN/Creatinine Ratio 15.4 (10-20) Calcium Level 8.6 mg/dl (8.5-10.1) Phosphorus Level 3.0 mg/dl (2.5-4.9) Magnesium Level 1.9 mg/dl (1.8-2.4) Bedside Glucose 205 mg/dl (70-90) Test 12/16/16 12:17 Total Creatine Kinase 36 U/L (26-192) Creatine Kinase MB < 0.5 ng/ml (0.5-3.6) Creatine Kinase MB Ratio (0-3.0) Troponin I < 0.015 ng/ml (0-0.045) Date/Time Source Procedure Growth Status 12/16/16 02:15 Urine , Clean Catch Urine Culture Pending Received Hemoglobin A1c Test 12/16/16 05:36 Range/Units Medical Emergencies . Who to Call and When: Medical Emergencies: If at any time you feel your situation is an emergency, please call 911 immediately. . Non-Emergent Contact Non-Emergency issues call your: Primary Care Provider . . "Provider Documentation" section prepared by Ethel Huynh. . VTE Core Measure Inpt VTE Proph given/why not?: Unfractionated heparin SQ
[2016-12-16 15:42] VITALS: BP 144/86; PULSE 80; TEMP 37.1; O2SAT 98
[2016-12-17 06:55] LABS: ESTIMATED AVERAGE GLUCOSE 384 mg/dl; HA1C FLAG Normal (Normal)
--- NOTE | 2016-12-18 21:31 | Discharge Summary ---
Discharge Summary Date of Service Dec 18, 2016. Discharge Summary Admission Date: Dec 15, 2016 at 17:56 Discharge Date: Dec 16, 2016 Discharge Disposition: Home Principal Diagnosis: Presyncope DMII-uncontrolled KEEGAN-resolved Hypomagnesemia Hypothyroidism Procedures: Echo Vaccinations: None. Consultations: None. Pending Studies/Follow-Up: see instructions below. Medication Reconciliation Continued Medications: Atorvastatin (Atorvastatin Calcium) 40 Mg Tab 40 MG PO DAILY Hydrochlorothiazide (Hctz) 12.5 Mg Cap 12.5 MG PO DAILY, TAB Insulin Lispro Protamine & Lis (Humalog Mix 75/25 Kwikpen) 1 Inj Inj 0 SQ UD for 30 Days 30 units before breakfast 20 units before supper Lisinopril (Zestril) 10 Mg Tab 10 MG PO DAILY, TAB Metformin Hcl (Glucophage) 1,000 Mg Tab 1000 MG PO BID for 30 Days, #60 TAB Methimazole (Tapazole) 10 Mg Tab 10 MG PO DAILY Pantoprazole (Protonix) 40 Mg Tab 40 MG PO DAILY, TAB Paroxetine (Paxil) 40 Mg Tab 40 MG PO DAILY, TAB Discontinued Medications: Benzonatate (Tessalon Perles) 100 Mg Cap 100 MG PO TID PRN for Cough, CAP Admission Information HPI (per Admitting provider): This is a 66 year old female with a PMH of insulin dependent DM2, HTN, hyperthyroidism, HLD with some non-compliance issues noted in the past presents with a sudden onset of dizziness, near syncope, and vomiting episode. 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 and was in her usual state of health when this occurred. Denies any chest pain or shortness of breath during this episode. She was sent to [facility] and in the ER was noted to have dehydration/kidney injury; was given a few fluid boluses and she states she feels better. Has a slight frontal headache, but no visual changes, no dizziness now; no fevers/chills. 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 She was admitted with a mild KEEGAN that resolved overnight with IV fluids. She appeared clinically improved the following day and denied any lightheadedness or other symptoms. She underwent an echocardiogram which revealed normal LV function with an EF 60-65%, a There is normal left ventricular wall thickness. Diastolic dysfunction (GRade II) was also noted and her coronary sinus was dilated. Injections of contrast injected from IV access in the left upper extremity opacified the coronary sinus, consistent with a persistent left superior vena cava (benign anatomical variant that would need to be taken in to account if there became a need for left sided central venous access). On day of discharge she was afebrile and hemodynamically stable. She was mentating and ambulating at baseline and was tolerating PO. She was sent home in stable condition with close PCP follow-up. Total time spent on discharge = 60 minutes This includes examination of the patient, discharge planning, medication reconciliation, and communication with other providers. Discharge Instructions [facility] [address] [place] [address] Discharge Medical Patient Name: Elida Mei Unit Number: [id number] Date of : 1950 Patient Status: Discharged Inpatient Attending Doctor: Ethel Huynh DO DI: Medical v4 Discharge Instructions Date of Service Dec 16, 2016. Admission Reason for Admission: Dehydration, Hyperglycemia, Pre-Syncope Discharge Discharge Diagnosis / Problem: Presyncope, KEEGAN-resolved likely 2/2 dehydration Discharge Goals Goal(s): Prevent Disease Progression Activity Recommendations Activity Limitations: per Instructions/Follow-up section . Instructions / Follow-Up Instructions / Follow-Up Please take all medications as instructed. You will need a follow-up appointment with your primary care physician (PCP) within one week of discharge to ensure things are going well post-discharge. Someone will contact you on Saturday regarding scheduling this appointment. I strongly recommend that you take daily fasting blood sugars and keep a written log to bring to every doctor's appointment for review of your blood sugars at home. It was a pleasure taking care of you! Call if you have any questions or problems. You can reach a [facility] hospitalist on duty at [facility] 24 hours a day by calling [phone]. Take care of yourself. Ethel Huynh DO [facility] Hospitalist Current Hospital Diet Patient's current hospital diet: Diabetes Type 2 Diet Discharge Diet Recommended Diet: AHA Diet (Heart Healthy), Diabetes Type 2 Diet Procedures Procedures Performed: Echo Pending Studies Studies pending at discharge: no Laboratory Results 12/16/16 05:36 12/16/16 05:36 Test 12/15/16 14:45 12/16/16 02:15 12/16/16 05:36 12/16/16 11:27 Immature Granulocyte % (Auto) 0.3 % White Blood Count 8.67 K/uL (4.8-10.8) Red Blood Count 4.84 M/uL (4.2-5.4) 4.14 M/uL (4.2-5.4) Hemoglobin 14.8 g/dL (12.0-16.0) Hematocrit 43.8 % (37-47) Mean Corpuscular Volume 90.5 fL (80-100) 91.5 fL (80-100) Mean Corpuscular Hemoglobin 30.6 pg (25-34) 30.0 pg (25-34) Mean Corpuscular Hemoglobin Concent 33.8 g/dl (32-36) 32.7 g/dl (32-36) Platelet Count 369 K/uL (130-400) Mean Platelet Volume 11.2 fL (7.4-10.4) 10.2 fL (7.4-10.4) Neutrophils (%) (Auto) 63.1 % Lymphocytes (%) (Auto) 26.1 % Monocytes (%) (Auto) 9.0 % Eosinophils (%) (Auto) 0.8 % Basophils (%) (Auto) 0.7 % Neutrophils # (Auto) 5.47 K/uL (1.4-6.5) Lymphocytes # (Auto) 2.26 K/uL (1.2-3.4) Monocytes # (Auto) 0.78 K/uL (0.11-0.59) Eosinophils # (Auto) 0.07 K/uL (0-0.5) Basophils # (Auto) 0.06 K/uL (0-0.2) Immature Granulocyte # (Auto) 0.03 K/uL (0.00-0.02) Prothrombin Time 10.7 SECONDS (9.0-12.0) Prothromb Time International Ratio 1.0 (0.9-1.1) Activated Partial Thromboplast Time 21.8 SECONDS (21.0-31.0) Partial Thromboplastin Ratio 0.8 Total Bilirubin 0.7 mg/dl (0.2-1) Direct Bilirubin 0.1 mg/dl (0-0.2) Aspartate Amino Transf (AST/SGOT) 12 U/L (15-37) Alanine Aminotransferase (ALT/SGPT) 12 U/L (12-78) Alkaline Phosphatase 154 U/L (45-117) Total Protein 8.6 gm/dl (6.4-8.2) Albumin 3.7 gm/dl (3.4-5.0) Lipase 172 U/L (73-393) Beta-Hydroxybutyric Acid 5.15 mg/dL (0.2-2.81) Thyroid Stimulating Hormone (TSH) 0.139 uIu/ml (0.300-4.500) Urine Color YELLOW Urine Appearance CLEAR (CLEAR) Urine pH 5.0 (4.5-7.5) Urine Specific [place] 1.016 (1.000-1.030) Urine Protein NEG (NEG) Urine Glucose (UA) 3+ (NEG) Urine Ketones NEG (NEG) Urine Occult Blood NEG (NEG) Urine Nitrite NEG (NEG) Urine Bilirubin NEG (NEG) Urine Urobilinogen NEG (NEG) Urine Leukocyte Esterase TRACE (NEG) Urine WBC (Auto) 1-5 /hpf (0-5) Urine RBC (Auto) 0-4 /hpf (0-4) Urine Hyaline Casts (Auto) 1-5 /lpf (0-5) Urine Epithelial Cells (Auto) 20-30 /lpf (0-5) Urine Bacteria (Auto) NEG (NEG) RDW Standard Deviation 42.6 fL (36.4-46.3) RDW Coefficient of Variation 12.7 % (11.5-14.5) Anion Gap 4.0 mmol/L (3-11) Est Creatinine Clear Calc Drug Dose 58.7 ml/min Estimated GFR () 85.8 Estimated GFR (Non- 74.0 BUN/Creatinine Ratio 15.4 (10-20) Calcium Level 8.6 mg/dl (8.5-10.1) Phosphorus Level 3.0 mg/dl (2.5-4.9) Magnesium Level 1.9 mg/dl (1.8-2.4) Bedside Glucose 205 mg/dl (70-90) Test 12/16/16 12:17 Total Creatine Kinase 36 U/L (26-192) Creatine Kinase MB < 0.5 ng/ml (0.5-3.6) Creatine Kinase MB Ratio (0-3.0) Troponin I < 0.015 ng/ml (0-0.045) Date/Time Source Procedure Growth Status 12/16/16 02:15 Urine , Clean Catch Urine Culture Pending Received Hemoglobin A1c Test 12/16/16 05:36 Range/Units Medical Emergencies . Who to Call and When: Medical Emergencies: If at any time you feel your situation is an emergency, please call 911 immediately. . Non-Emergent Contact Non-Emergency issues call your: Primary Care Provider . . "Provider Documentation" section prepared by Ethel Huynh. . VTE Core Measure Inpt VTE Proph given/why not?: Unfractionated heparin SQ Additional Copies To Manuel Herman M.D.
== END 2016-12-16 16:20 | disposition home or self-care (01) | DRG 638 ==
LOC: EDBD 14:34 → C.EDB 14:35 → C.2E 17:56 → ENRESERV 18:09
PROVIDERS: ADMIT Family Medicine; ATTEND Hospitalist
DX: E11.65 Type 2 diabetes mellitus with hyperglycemia (principal); N17.9 Acute kidney failure, unspecified; R55 Syncope and collapse; E83.42 Hypomagnesemia; E03.9 Hypothyroidism, unspecified; E86.0 Dehydration; I10 Essential (primary) hypertension; E78.5 Hyperlipidemia, unspecified; E05.90 Thyrotoxicosis, unspecified without thyrotoxic crisis or storm; K21.9 Gastro-esophageal reflux disease without esophagitis; Z79.899 Other long term (current) drug therapy; Z79.4 Long term (current) use of insulin; Z83.3 Family history of diabetes mellitus; Z82.49 Family history of ischemic heart disease and other diseases of the circulatory system; Z80.1 Family history of malignant neoplasm of trachea, bronchus and lung; Z80.42 Family history of malignant neoplasm of prostate

== ENCOUNTER 2017-02-28 06:01 | Emergency (ER) | payer OTHER, MEDICARE ==
[~2017-02-28] VITALS: Ht 149.9 cm; Wt 77.7 kg
[~2017-02-28 06:01] MED LIST changes: -AZIT250T PO; -BENZ100C18 PO
[2017-02-28 06:06] VITALS: Ht 149.9 cm; Wt 77.7 kg
[2017-02-28] MEDS ORDERED: LIDODERM (LIDOCAINE) PATCH 5% TD STA (06:22)
[2017-02-28] MEDS ORDERED: OXYCODONE HCL IR 5 MG TAB (IMMEDIATE RELEASE) PO STA (06:22)
[2017-02-28] MEDS ORDERED: OXYCODONE IR HOME PACK PO ONE (06:30)
--- NOTE | 2017-02-28 07:23 | DIAGNOSTIC IMAGING REPORT ---
PELVIS 1 OR 2 VIEW ROUTINE CLINICAL HISTORY: Right hip pain trauma COMPARISON STUDY: No previous studies for comparison. FINDINGS: Degenerative changes are present the lower lumbar spine. The bones are mildly osteopenic. No acute fractures are visualized. There is no SI joint diastases. There is no symphysis diastases. IMPRESSION: No fractures identified. Electronically signed by: Darnell Carvajal M.D. 02/28/2017 7:22 AM Dictated Date/Time: 02/28/2017 7:21 AM
--- NOTE | 2017-02-28 07:24 | DIAGNOSTIC IMAGING REPORT ---
R FEMUR 4 VIEWS ROUTINE CLINICAL HISTORY: Right hip and leg pain status post trauma COMPARISON: None. DISCUSSION: No fractures or dislocations are visualized. The bones are osteopenic. There are vascular calcifications present. There are degenerative changes within the knee. There is chondrocalcinosis. IMPRESSION: No fractures or dislocations identified. Electronically signed by: Darnell Carvajal M.D. 02/28/2017 7:23 AM Dictated Date/Time: 02/28/2017 7:22 AM
--- NOTE | 2017-02-28 07:25 | DIAGNOSTIC IMAGING REPORT ---
L-SPINE MIN 4 VIEWS ROUTINE CLINICAL HISTORY: Right-sided back pain. Trauma. COMPARISON STUDY: 02/05/2008 FINDINGS: There is mild gaseous distention of the colon the level of the splenic flexure. There is a moderate amount of stool within the right colon. There are surgical clips within the right upper quadrant consistent with a prior cholecystectomy. The bones are osteopenic. No acute fractures or traumatic subluxations are visualized. There are progressive degenerative changes most pronounced at the L4-5 level. IMPRESSION: No acute fractures or traumatic subluxations identified. Progressive degenerative changes most pronounced at the L4-5 level. Electronically signed by: Darnell Carvajal M.D. 02/28/2017 7:24 AM Dictated Date/Time: 02/28/2017 7:23 AM
[2017-02-28] MEDS ORDERED: NF656 TD (07:32)
[2017-02-28] MEDS ORDERED: OXYC1TAB3 PO (07:32)
[2017-02-28 07:40] VITALS: BP 148/107; PULSE 91; TEMP 36.4; O2SAT 100
--- NOTE | 2017-02-28 13:52 | EMERGENCY ROOM VISIT NOTE ---
History Report prepared by Janette: Pooja Dunn Under the Supervision of: Dr. Blair Roche M.D. First contact with patient: 06:11 Chief Complaint: FALL Stated Complaint: PAIN IN HIP AND LEG ON RIGHT SIDE History of Present Illness The patient is a 66 year old female who presents to the Emergency Room with complaints of an episode of a fall occurring three days ago. The patient states that she was walking and tripped over her cat. She reports that she has right hip pain that radiates down her right leg. She notes that she is able to walk on it. The patient reports taking Tylenol with little relief. She states that her last dose was four hours ago. She states that this is keeping her up at night. She notes that she uses a walker to help her get around. She reports that Dr. Nunez with [facility] is her orthopedic surgeon in the past. Source of History: patient Onset: three days ago Position: other (global) Quality: other (global) Timing: other (episode) Modifying Factors (Relieving): tylenol Note: The patient complains of right hip pain. Review of Systems See HPI for pertinent positives & negatives. A total of 10 systems reviewed and were otherwise negative. Past Medical & Surgical Medical Problems: (1) Anxiety State Nos (2) Dehydration (3) Diabetes (4) Diabetes mellitus, type 2 (5) Dyslipidemia (6) Esophageal Reflux (7) GERD (gastroesophageal reflux disease) (8) Hyperglycemia (9) Hyperglycemia (10) Hyperlipidemia Nec/Nos (11) Hypertension (12) Hypertension Nos (13) Hyperthyroidism (14) Hypothyroidism Nos (15) Pre-syncope Surgical Problems: (1) Hx of cholecystectomy (2) Rotator cuff rupture (3) Status post cholecystectomy Family History Diabetes mellitus FATHER MOTHER Lung cancer FATHER Prostate cancer FATHER Pulmonary embolism DAUGHTER Social History Smoking Status: Never Smoker Alcohol Use: none Drug Use: none Marital Status: Housing Status: lives with family Current/Historical Medications Scheduled Atorvastatin (Atorvastatin Calcium), 40 MG PO DAILY Hydrochlorothiazide (Hctz), 12.5 MG PO DAILY Insulin Lispro Protamine & Lis (Humalog Mix 75/25 Kwikpen), 0 SQ UD Lidocaine (Lidoderm Patch 5%), 1 PATCH TD DAILY Lisinopril (Zestril), 10 MG PO DAILY Metformin Hcl (Glucophage), 1,000 MG PO BID Methimazole (Tapazole), 10 MG PO DAILY Pantoprazole (Protonix), 40 MG PO DAILY Paroxetine (Paxil), 40 MG PO DAILY Scheduled PRN Oxycodone Immediate Rel Tab (Roxicodone Ir), 1-2 TAB PO Q4H PRN for Severe Pain Allergies Coded Allergies: No Known Allergies (Unverified , 02/28/17) Physical Exam Vital Signs Date Time Temp Pulse Resp B/P (MAP) Pulse Ox O2 Delivery O2 Flow Rate FiO2 02/28/17 07:40 36.4 91 20 148/107 100 02/28/17 06:06 36.4 88 20 160/90 99 Room Air Physical Exam GENERAL: Patient is a healthy-appearing well-nourished HEAD: Normocephalic atraumatic EYES: Ocular movements intact pupils equal and react to light OROPHARYNX mucous membranes are moist no exudates present no erythema or edema present NECK: Supple no nuchal rigidity CHEST: Good equal expansion LUNGS: Clear and equal to auscultation CARDIAC: Normal S1 and S2 ABDOMEN: Soft nontender no guarding BACK: No CVA tenderness EXTREMITIES: Point tender at the SI joint in right hip. Good ROM of hip. Free from pain in right knee and right ankle. Neurovascularly intact. no clubbing cyanosis or edema NEURO: Patient is following commands and answering questions appropriately. Alert and oriented x3 Cranial Nerves 2-12 grossly intact Medical Decision & Procedures ER Provider Diagnostic Interpretation: Radiology results as stated below per my review and radiologist interpretation: PELVIS 1 OR 2 VIEW ROUTINE CLINICAL HISTORY: Right hip pain trauma COMPARISON STUDY: No previous studies for comparison. FINDINGS: Degenerative changes are present the lower lumbar spine. The bones are mildly osteopenic. No acute fractures are visualized. There is no SI joint diastases. There is no symphysis diastases. IMPRESSION: No fractures identified. Electronically signed by: Darnell Carvajal M.D. 02/28/2017 7:22 AM Dictated Date/Time: 02/28/2017 7:21 AM L-SPINE MIN 4 VIEWS ROUTINE CLINICAL HISTORY: Right-sided back pain. Trauma. COMPARISON STUDY: 02/05/2008 FINDINGS: There is mild gaseous distention of the colon the level of the splenic flexure. There is a moderate amount of stool within the right colon. There are surgical clips within the right upper quadrant consistent with a prior cholecystectomy. The bones are osteopenic. No acute fractures or traumatic subluxations are visualized. There are progressive degenerative changes most pronounced at the L4-5 level. IMPRESSION: No acute fractures or traumatic subluxations identified. Progressive degenerative changes most pronounced at the L4-5 level. Electronically signed by: Darnell Carvajal M.D. 02/28/2017 7:24 AM Dictated Date/Time: 02/28/2017 7:23 AM R FEMUR 4 VIEWS ROUTINE CLINICAL HISTORY: Right hip and leg pain status post trauma COMPARISON: None. DISCUSSION: No fractures or dislocations are visualized. The bones are osteopenic. There are vascular calcifications present. There are degenerative changes within the knee. There is chondrocalcinosis. IMPRESSION: No fractures or dislocations identified. Electronically signed by: Darnell Carvajal M.D. 02/28/2017 7:23 AM Dictated Date/Time: 02/28/2017 7:22 AM Medications Administered Medications (Trade) Dose Ordered Sig/Junaid Route Start Time Stop Time Status Last Admin Dose Admin Oxycodone HCl (Roxicodone Immediate Rel Tab) 10 mg NOW STAT PO 02/28/17 06:22 02/28/17 06:25 DC 02/28/17 06:43 10 MG Oxycodone HCl (Roxicodone Immediate Rel 5MG Home Pack) 1 homepack UD ONCE PO 02/28/17 06:30 02/28/17 06:31 DC 02/28/17 06:30 1 HOMEPACK Lidocaine (Lidoderm Patch 5%) 1 patch NOW STAT TD 02/28/17 06:22 02/28/17 06:25 DC 02/28/17 06:43 1 PATCH ED Course 0611: Past medical records reviewed. The patient was evaluated in room A3. A complete history and physical examination was performed. 0622: Ordered Lidocaine 1 patch TD, Oxycodone HCl 10 mg PO. 0630: Ordered Oxycodone HCl 1 homepack PO. 0731: Upon reexamination the patient is resting comfortably. I discussed results and treatment plan with the patient. She verbalizes agreement and understanding. The patient is ready for discharge. Medical Decision Etiologies such as fracture, dislocation, intra-abdominal, pneumothorax, intrathoracic , intracranial, neurologic, as well as other traumatic pathologies were entertained. This is a 66-year-old female who presents emergency department complaining of hip pain after a fall at home on Saturday. X-rays were taken of the patient's hip and pelvis and femur and back. Show no evidence of acute fracture dislocation or subluxation. The patient was given oxycodone. Repeat examination revealed improvement patient's symptoms. I recommend the patient use either walker her crutches at home. Patient does have a walker at home. I feel she as well as to be discharged to follow-up with orthopedics. Patient was in agreement with the treatment plan. Medication Reconcilliation Current Medication List: was personally reviewed by me Blood Pressure Screening Patient's blood pressure: Elevated blood pressure Blood pressure disposition: Referred to PCP Impression Primary Impression: Hip pain Additional Impression: Fall Scribe Attestation The scribe's documentation has been prepared under my direction and personally reviewed by me in its entirety. I confirm that the note above accurately reflects all work, treatment, procedures, and medical decision making performed by me. Departure Information Dispostion Home / Self-Care Prescriptions Lidocaine (Lidoderm Patch 5%) 1 Ea Tdsy 1 PATCH TD DAILY for 30 Days, #30 PATCH Prov: Blair Roche MD 02/28/17 Oxycodone Immediate Rel Tab (ROXICODONE IR) 5 Mg Tab 1-2 TAB PO Q4H Y for Severe Pain, #14 TAB Prov: Blair Roche MD 02/28/17 Referrals Manuel Herman M.D. (PCP) Forms HOME CARE DOCUMENTATION FORM, IMPORTANT VISIT INFORMATION Patient Instructions My [facility] Additional Instructions Take 1000 mg Tylenol Take Oxy IR for breakthrough pain Apply Lidoderm patch daily Follow up with Dr Nunez's office if having continued pain Use walker as needed You were found to have an elevated blood pressure today (>120 sytolic or >90 diastolic). Per medicare guidelines, you need to follow up with this blood pressure screening with your Primary Care Physician (PCP). For a new PCP call [phone]. You received narcotic or benzodiazepene medication while in the emergency room today. This is an addictive medication that may cause drowziness as well as constipation. Do not drive, operate heavy machinery, or drink alcohol under the influence of this medication. You have been examined and treated today on an emergency basis only. This is not a substitute for, or an effort to provide, complete comprehensive medical care. It is impossible to recognize and treat all injuries or illnesses in a single emergency department visit. It is therefore important that you follow up closely with Dr Herman. Call as soon as possible for an appointment. Thank you for your time and consideration. I look forward to speaking with you again soon. Please don't hesitate to call us if you have any questions. Problem Qualifiers Primary Impression: Hip pain Laterality: right Qualified Codes: M25.551 - Pain in right hip Additional Impression: Fall Encounter type: initial encounter Qualified Codes: W19.XXXA - Unspecified fall, initial encounter
== END 2017-02-28 07:41 | disposition home or self-care (01) ==
LOC: C.EDB 06:02 → C.EDA 07:41
DX: M25.551 Pain in right hip (principal); M79.604 Pain in right leg; W01.0XXA Fall on same level from slipping, tripping and stumbling without subsequent striking against object, initial encounter; F41.9 Anxiety disorder, unspecified; E11.9 Type 2 diabetes mellitus without complications; E78.5 Hyperlipidemia, unspecified; K21.9 Gastro-esophageal reflux disease without esophagitis; I10 Essential (primary) hypertension; E05.90 Thyrotoxicosis, unspecified without thyrotoxic crisis or storm; E03.9 Hypothyroidism, unspecified; Z79.4 Long term (current) use of insulin; Z79.84 Long term (current) use of oral hypoglycemic drugs; Z90.49 Acquired absence of other specified parts of digestive tract; Z83.3 Family history of diabetes mellitus; Z80.1 Family history of malignant neoplasm of trachea, bronchus and lung; Z80.42 Family history of malignant neoplasm of prostate; Z82.49 Family history of ischemic heart disease and other diseases of the circulatory system

== ENCOUNTER 2017-03-15 12:09 | Emergency (ER) | payer OTHER, MEDICARE ==
[~2017-03-15] VITALS: Ht 160 cm; Wt 75.9 kg
[~2017-03-15 12:09] MED LIST changes: +NF656 TD; +OXYC1TAB3 PO
[2017-03-15 12:12] VITALS: TEMP 36.4; Ht 160 cm; Wt 75.9 kg
[2017-03-15] MEDS ORDERED: OXYCODONE HCL IR 5 MG TAB (IMMEDIATE RELEASE) PO STA (12:52)
[2017-03-15] MEDS ORDERED: KETOROLAC TROMETHAMINE 60 MG/2 ML VIAL IM STA (12:52)
[2017-03-15] MEDS ORDERED: OXYC-609 PO (13:42)
[2017-03-15] MEDS ORDERED: HMLI7525 SC (13:42)
--- NOTE | 2017-03-15 13:46 | DIAGNOSTIC IMAGING REPORT ---
LUMBAR SPINE WITHOUT CT DOSE: 818.93 mGy.cm HISTORY: Pain RADICULAR BILATERAL LOW BACK PAIN TECHNIQUE: Multiaxial CT images of the lumbar spine were performed and reformatted in the sagittal and coronal plane without the use of contrast. A dose lowering technique was utilized adhering to the principles of ALARA. COMPARISON: Lumbar spine series 02/28/2017 FINDINGS: Vertebral body stature is considered normal. Considerable degenerative disc change L4-L5 with associated vacuum disc. No evidence for compression deformity. L1-L2 mild broad-based disc bulge. Patent neural foramina bilaterally. L2-L3: Mild broad-based disc bulge. L3-L4 mild multifactorial narrowing of the spinal canal. Mild broad-based bulging disc. L4-L5: significant multifactorial narrowing of the spinal canal. Posterior osteophytic and bulging disc components are noted. Moderate hypertrophic changes of posterior elements. A potential prior partial posterior laminotomy on the right. L5-S1 posterior osteophytic reaction combine with mild posterior bulging disc components. Spina bifida occulta posteriorly. Mild osteophytic narrowing of the neuroforamina bilaterally. IMPRESSION: 1. Considerable degenerative disc change L4-L5 with associated vacuum disc. 2. Significant multifactorial narrowing of the spinal canal and to a lesser extent neuroforamina at L4-L5. 3. Mild multifactorial narrowing of the spinal canal L3-L4 4. Mild disc bulges at all additional levels The above report was generated using voice recognition software. It may contain grammatical, syntax or spelling errors. Electronically signed by: Yakov Dangelo M.D. 03/15/2017 1:44 PM Dictated Date/Time: 03/15/2017 1:40 PM
--- NOTE | 2017-03-15 14:13 | EMERGENCY ROOM VISIT NOTE ---
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 I agree with the diagnostic/management decisions and have personally been involved in these decisions and agree with the diagnosis.
[2017-03-15] MEDS ORDERED: OXYC1TAB3 PO (14:15)
--- NOTE | 2017-03-15 14:16 | EMERGENCY ROOM VISIT NOTE ---
History First contact with patient: 12:29 Chief Complaint: BACK PAIN Stated Complaint: SEVER LOWER BACK,LEFT,AND FOOT PAIN History of Present Illness Patient is a 66-year-old white female who returns to the emergency department for ongoing back and leg pain. Patient was seen here 2 weeks ago for similar complaints. At that time she was complaining of right hip and leg pain after she tripped and fell over her cat. She had pelvis, right femur and lumbar spine x-rays performed at that time, which were negative for acute fracture. She was prescribed oxycodone, she took one tablet at bedtime, which did help with her pain. She was otherwise using Tylenol for discomfort. She did not try any NSAIDs. The Lidoderm patch prescription was not covered by her insurance. Patient states that her pain has continued and is now worsening. She notes pain across her entire low back that radiates down into her buttocks and down her legs bilaterally. It goes down the back of her legs and "shoots out her feet." She states that her right leg is worse than her left. She rates her pain a 10/10 presently. She denies any numbness, tingling or weakness into the lower extremities. No bowel or bladder incontinence. No saddle anesthesias. She has been seeing a chiropractor, but they directed her here to the emergency department today because she has not been getting any better. She did not make any attempts to follow-up with her PCP or with orthopedics. Review of Systems Review of systems as per HPI. All other systems reviewed were negative. 10 systems reviewed. Past Medical/Surgical History Medical Problems: (1) Anxiety State Nos (2) Bronchitis (3) Delisa infection of genital region (4) Candidiasis (5) Cellulitis (6) Dehydration (7) Diabetes (8) Diabetes mellitus type 2, uncontrolled (9) Diabetes mellitus, type 2 (10) Dyslipidemia (11) Esophageal Reflux (12) Fall (13) Fall (14) GERD (gastroesophageal reflux disease) (15) Hip pain (16) Hip pain, right (17) Hyperglycemia (18) Hyperglycemia (19) Hyperglycemia (20) Hyperlipidemia Nec/Nos (21) Hypertension (22) Hypertension (23) Hypertension Nos (24) Hyperthyroidism (25) Hypothyroidism Nos (26) Near syncope (27) Orthostasis (28) Pre-syncope (29) Shingles outbreak Surgical Problems: (1) Hx of cholecystectomy (2) Rotator cuff rupture (3) Status post cholecystectomy Electronic medical records are reviewed and summarized as above/below. See Problem List. Family History Diabetes mellitus FATHER MOTHER Lung cancer FATHER Prostate cancer FATHER Pulmonary embolism DAUGHTER Social History Smoking Status: Never Smoker Alcohol Use: none Drug Use: none Marital Status: Housing Status: lives with family Current/Historical Medications Scheduled Atorvastatin (Atorvastatin Calcium), 40 MG PO DAILY Hydrochlorothiazide (Hctz), 12.5 MG PO DAILY Lisinopril (Zestril), 10 MG PO DAILY Metformin Hcl (Glucophage), 1,000 MG PO BID Methimazole (Tapazole), 10 MG PO DAILY Pantoprazole (Protonix), 40 MG PO DAILY Paroxetine (Paxil), 40 MG PO DAILY Scheduled PRN Insulin Lispro 75/25 (Humalog Mix 75/25), 0 SC BID PRN for UD Oxycodone HCl (Oxycodone HCl), 1-2 TAB PO Q6 PRN for Severe Pain Oxycodone Immediate Rel Tab (Roxicodone Ir), 1-2 TAB PO Q4H PRN for Severe Pain Physical Exam Vital Signs Date Time Temp Pulse Resp B/P (MAP) Pulse Ox O2 Delivery O2 Flow Rate FiO2 03/15/17 14:25 86 20 154/98 96 03/15/17 12:12 36.4 85 18 173/103 98 Room Air Physical Exam PHYSICAL EXAM: Vital Signs: Reviewed Nurse's notes. CONSTITUTIONAL: Patient is an overweight 36-year-old white female who is awake and alert and laying supine on the gurney in mild distress. There is moderate discomfort with position changes. CARDIOVASCULAR: Regular rate and rhythm, with normal S1 and S2, no murmur or gallop or rub is heard. No carotid bruits auscultated. No JVD. Peripheral pulses easily palpable. RESPIRATORY: Breath sounds equal and clear to auscultation without wheezes, rales, or rhonchi heard. Full and equal chest expansion without accessory muscle use or retractions. ABDOMEN: Bowel sounds are present. Abdomen is soft, nontender and nondistended. INTEGUMENTARY: No lesions or rash, normal skin turgor. LYMPH: No lymphadenopathy. SPINE: Examination of the patient's back does not demonstrate any ecchymosis, abrasions or outward signs of trauma. No erythema, increased warmth or induration. Patient has midline discomfort to palpation over the low lumbar spine, and across the PSIS bilaterally. She does have some discomfort that extends down into the SI joints bilaterally. She has increased pain with range of motion including rotation and flexion, although she is able to sit up off the bed, and ambulating independently into the bathroom without difficulty. EXTREMITIES: Leg lengths are symmetrical. Negative logroll bilaterally. Normal strength including dorsi-flexion and plantar flexion of the great toes and ankles and flexion and extension of the knees and flexion of the hips. Negative bilateral straight leg raise testing. Lower extremity DTRs are equal and symmetrical bilaterally. Distal pulses are easily palpable. Sensation light touch is intact over the lower extremities bilaterally. Medical Decision & Procedures ER Provider Diagnostic Interpretation: LUMBAR SPINE WITHOUT CT DOSE: 818.93 mGy.cm HISTORY: Pain RADICULAR BILATERAL LOW BACK PAIN TECHNIQUE: Multiaxial CT images of the lumbar spine were performed and reformatted in the sagittal and coronal plane without the use of contrast. A dose lowering technique was utilized adhering to the principles of ALARA. COMPARISON: Lumbar spine series 02/28/2017 FINDINGS: Vertebral body stature is considered normal. Considerable degenerative disc change L4-L5 with associated vacuum disc. No evidence for compression deformity. L1-L2 mild broad-based disc bulge. Patent neural foramina bilaterally. L2-L3: Mild broad-based disc bulge. L3-L4 mild multifactorial narrowing of the spinal canal. Mild broad-based bulging disc. L4-L5: significant multifactorial narrowing of the spinal canal. Posterior osteophytic and bulging disc components are noted. Moderate hypertrophic changes of posterior elements. A potential prior partial posterior laminotomy on the right. L5-S1 posterior osteophytic reaction combine with mild posterior bulging disc components. Spina bifida occulta posteriorly. Mild osteophytic narrowing of the neuroforamina bilaterally. IMPRESSION: 1. Considerable degenerative disc change L4-L5 with associated vacuum disc. 2. Significant multifactorial narrowing of the spinal canal and to a lesser extent neuroforamina at L4-L5. 3. Mild multifactorial narrowing of the spinal canal L3-L4 4. Mild disc bulges at all additional levels Medications Administered Medications (Trade) Dose Ordered Sig/Junaid Route Start Time Stop Time Status Last Admin Dose Admin Oxycodone HCl (Roxicodone Immediate Rel Tab) 5 mg NOW STAT PO 03/15/17 12:52 03/15/17 12:54 DC 03/15/17 13:02 5 MG Ketorolac Tromethamine (Toradol Inj) 60 mg NOW STAT IM 03/15/17 12:52 03/15/17 12:54 DC 03/15/17 13:02 60 MG ED Course The patient was seen and assessed as above. Her old records were reviewed, including her lumbar spine x-rays from a couple of weeks ago which showed some mild degenerative changes. She ambulated to the bathroom and provided a urine sample which was dipped, and showed glucosuria, no other indicators for infection. She was given Toradol 60 mg IM and oxycodone [address]. Lumbar spine CT was obtained, and noted multilevel degenerative changes, with considerable degenerative disc changes at L4-L5, with multifactorial spinal canal narrowing at the same level. CT scan findings were reviewed with the patient. History and presentation were discussed with attending physician. Given findings on CT, the patient was strongly encouraged to follow-up with orthopedic spine for further care and evaluation. She may require physical therapy/MRI, and possible pain management. They are previously established with [facility] and she would like to follow-up there. She is not a good candidate for oral steroids due to her poorly controlled diabetes. She has not been taking an NSAID however, and was encouraged to do so. She was given an additional prescription for oxycodone to use for pain, and advised to follow closely with her PCP or orthostatic further care and evaluation. Her physical exam findings at this time are not consistent with acute compression or cauda equina syndrome. Differential diagnoses also entertained included spinal stenosis, disc herniation, lumbar radiculopathy, sciatica, among others. The patient rated her discomfort a 3/10 at discharge. is driving. Medical Decision See ED Course. [place] Drug Monitoring Program Search Results: patient reviewed within database, no issues identified Medication Reconcilliation Current Medication List: was personally reviewed by me Blood Pressure Screening Patient's blood pressure: Elevated blood pressure Blood pressure disposition: Elevated BP felt to be situational Impression Primary Impression: Low back pain radiating to both legs Departure Information Prescriptions Oxycodone Immediate Rel Tab (ROXICODONE IR) 5 Mg Tab 1-2 TAB PO Q4H Y for Severe Pain, #30 TAB For Initial Treatment Prov: Patrica Dunham PA 03/15/17 Referrals Manuel Herman M.D. (PCP) Patient Instructions My [facility] Additional Instructions DO NOT drive, drink alcohol, operate machinery, or perform dangerous activities today. You were given medications in the ER that can affect your ability to safely function or operate a vehicle. Oxycodone (OxyIR) 5mg: Take 1-2 pills every four hours for breakthrough pain. Avoid alcohol, operating machinery or dangerous equipment, working on ladders or roofs, DRIVING, or situations where being under the influence may be dangerous. It is recommended to use an xouk-izq-wzdejwa stool softener such as Colace, 100mg twice daily while taking this medication to avoid constipation. Ibuprofen(Motrin, Advil) may be used for fever or pain. Use 600mg every six hours as needed. Take with food. Avoid using more than 2400mg in a 24 hour period. Do not use 2400mg per day for more than three consecutive days without physician direction. Prolonged inappropriate use can lead to stomach upset or ulcers. This medication can be taken if you need to drive, work, or perform activities which may be dangerous when taking narcotic pain medication. (AND/OR) Acetaminophen(Tylenol) may be used for fever or pain. Use 1000mg every six hours as needed. Avoid using more than 3000mg in a 24 hour period. This medication can be taken if you need to drive, work, or perform activities which may be dangerous when taking narcotic pain medication. Rest and avoid heavy lifting until your symptoms resolve and then gradually return to full activity. A good rule of thumb is if it hurts your back to perform a certain activity, then it should be avoided until you are healthy again. A heating pad, warm compresses, or a hot shower may help with tight muscles and can be done several times a day as needed. Continue current medications. Return to the ER immediately for any numbness, tingling, severe pain, loss of control of your bowels or bladder, inability to walk, or as needed. Follow up with your primary care physician within 3-5 days for a recheck of your current condition.
[2017-03-15 14:25] VITALS: BP 154/98; PULSE 86; O2SAT 96
== END 2017-03-15 14:28 | disposition home or self-care (01) ==
LOC: C.EDB 12:10 → C.EDD 14:28
DX: M54.5 Low back pain (principal); M79.604 Pain in right leg; M79.605 Pain in left leg; E11.9 Type 2 diabetes mellitus without complications; E78.5 Hyperlipidemia, unspecified; F41.9 Anxiety disorder, unspecified; K21.9 Gastro-esophageal reflux disease without esophagitis; Z91.81 History of falling; I10 Essential (primary) hypertension; Z90.49 Acquired absence of other specified parts of digestive tract; Z83.3 Family history of diabetes mellitus; Z80.1 Family history of malignant neoplasm of trachea, bronchus and lung; Z80.42 Family history of malignant neoplasm of prostate; Z82.49 Family history of ischemic heart disease and other diseases of the circulatory system; Z79.84 Long term (current) use of oral hypoglycemic drugs; Z79.899 Other long term (current) drug therapy

== ENCOUNTER 2017-06-19 14:39 | Emergency (ER) | payer OTHER, MEDICARE ==
[~2017-06-19] VITALS: Ht 149.9 cm; Wt 76.5 kg
[~2017-06-19 14:39] MED LIST changes: -HYDR12.56 PO; -INSU75IN2 SQ; -LISI-461 PO; -LPT40 PO; -METH10TA6 PO; -NF656 TD; +OXYC-609 PO; -PANT40TA PO; -PXL/40 PO
[2017-06-19 14:47] VITALS: BP 179/115; PULSE 104; TEMP 37; O2SAT 97; Ht 149.9 cm; Wt 76.5 kg
[2017-06-19] MEDS ORDERED: XYLOCAINE 1%/SOD BICARB 20 ML VIAL INFIL STA (15:05)
--- NOTE | 2017-06-19 15:10 | EMERGENCY ROOM VISIT NOTE ---
ED Visit Note First contact with patient: 14:55 CHIEF COMPLAINT: Infection of the right inner thigh HISTORY OF PRESENT ILLNESS: This 66-year-old female patient presents to the emergency department 3 days after they noticed a hard, red, tender area of the right medial thigh. It is slowly getting larger, more painful and tender. No fever, chills, or loss of appetite. There has been no drainage from the area. There was no injury to the area preceding the infection. They rate the pain as minimal and 0/10. Tetanus shot is not up to date. They have tried nothing. The patient is diabetic. The patient has history of similar subcutaneous abscesses in the past which have been drained at home by her and mother. REVIEW OF SYSTEMS: A 10 system review of systems was performed with positives and pertinent negatives listed in the history of present illness. All other systems were reviewed and are negative. ALLERGIES: None PMH: Diabetes, hypertension, hyperlipidemia SOCIAL HISTORY: The patient lives locally with family. She denies drug, alcohol , tobacco use. PHYSICAL EXAM: Vital Signs: Reviewed Nurse's notes, vital signs stable. GENERAL : This is a 66-year-old obese white female, no acute distress, non toxic in appearance, well-developed well-nourished. SKIN: There is an erythematous indurated area on the right medial thigh which measures about 1.5 cm in diameter. It is fluctuant but there is no pointing or drainage. There is a zone of inflammation around it but no lymphangitis. Capillary refill less than 2 seconds. MUSCULOSKELETAL: There is no limitation of the range of motion of the right lower extremity. EMERGENCY DEPARTMENT COURSE: I examined the patient. Verbal consent was obtained to perform the procedure. After saline and Betadine cleansing and 8 mL of 1% buffered lidocaine anesthesia, the abscess was incised with a number 11 scalpel blade. A large amount of purulent material was released with more expressed by pressure. A swab was obtained for culture. The abscess cavity was further probed with a needle drivers license examiner and the deep pocket expressed. Loculations broken with a needle drivers license examiner. The abscess cavity was then copiously irrigated with sterile saline under pressure. The area was then packed with bacitracin soaked packing. The area was cleaned with sterile saline and dressed with bacitracin and a bulky bandage. The patient tolerated the procedure well. She will be treated with doxycycline until culture results obtained. The patient was discharged home in stable condition. DIFFERENTIAL DIAGNOSIS: Abscess, cellulitis, infection, bite, malignancy, and others DIAGNOSIS: Abscess of the right thigh Problem List Medical Problems: (1) Anxiety State Nos Status: Chronic (2) Bronchitis Status: Resolved (3) Delisa infection of genital region Status: Resolved (4) Candidiasis Status: Resolved (5) Cellulitis Status: Resolved (6) Dehydration Status: Resolved (7) Diabetes Status: Chronic (8) Diabetes mellitus type 2, uncontrolled Status: Resolved (9) Diabetes mellitus, type 2 Status: Chronic (10) Dyslipidemia Status: Chronic (11) Esophageal Reflux Status: Chronic (12) Fall Status: Resolved (13) Fall Status: Resolved (14) GERD (gastroesophageal reflux disease) Status: Chronic (15) Hip pain Status: Resolved (16) Hip pain, right Status: Resolved (17) Hyperglycemia Status: Resolved (18) Hyperglycemia Status: Resolved (19) Hyperglycemia Status: Resolved (20) Hyperlipidemia Nec/Nos Status: Chronic (21) Hypertension Status: Resolved (22) Hypertension Status: Chronic (23) Hypertension Nos Status: Chronic (24) Hyperthyroidism Status: Chronic (25) Hypothyroidism Nos Status: Chronic (26) Near syncope Status: Resolved (27) Orthostasis Status: Resolved (28) Pre-syncope Status: Resolved (29) Shingles outbreak Status: Resolved Surgical Problems: (1) Hx of cholecystectomy Status: Resolved (2) Rotator cuff rupture Status: Resolved (3) Status post cholecystectomy Status: Resolved Current/Historical Medications Scheduled Atorvastatin (Lipitor), 40 MG PO DAILY Doxycycline Hyclate (Vibramycin), 100 MG PO BID Hydrochlorothiazide (Hctz), 12.5 MG PO DAILY Insulin Lispro Protamine & Lis (Humalog Mix 75/25 Kwikpen), 25 UNITS SQ QPM Lisinopril (Zestril), 10 MG PO DAILY Metformin Hcl (Glucophage), 1,000 MG PO BID Methimazole (Tapazole), 10 MG PO DAILY Pantoprazole (Protonix), 40 MG PO DAILY Paroxetine (Paxil), 40 MG PO DAILY Scheduled PRN Insulin Lispro 75/25 (Humalog Mix 75/25), 35 UNITS SC QAM PRN for UD Allergies Coded Allergies: No Known Allergies (Unverified , 03/15/17) Vital Signs Date Time Temp Pulse Resp B/P (MAP) Pulse Ox O2 Delivery O2 Flow Rate FiO2 3/14/18 14:47 37.0 104 17 179/115 97 Room Air Medications Administered Medications (Trade) Dose Ordered Sig/Junaid Route Start Time Stop Time Status Last Admin Dose Admin Diphtheria/ Pertussis/Tetanus Vacc (Adacel Inj) 0.5 ml ONCE ONCE IM. 06/19/17 15:15 06/19/17 15:16 DC 06/19/17 15:15 0.5 ML Departure Information Impression Primary Impression: Abscess of right thigh Dispostion Home / Self-Care Condition GOOD Prescriptions Doxycycline Hyclate (VIBRAMYCIN) 100 Mg Cap 100 MG PO BID for 10 Days, #20 CAP Prov: Karen Oconnell, TESS 06/19/17 Referrals Manuel Herman M.D. (PCP) Patient Instructions ED Abscess [place], My [facility] Additional Instructions You were seen in the ED today for an abscess of the right thigh. This was successfully incised and drained. You were prescribed doxycycline to be taken twice daily for 10 days. This is an antibiotic. All antibiotics have the potential to cause diarrhea. Stop this medication and contact a medical provider if you were to develop any significant adverse side effects including: wheezing, shortness of breath, passing out, vomiting, or a diffuse rash. Always take antibiotics as directed and COMPLETE the ENTIRE course regardless of the improvement of your symptoms. A culture was sent to the lab. You will be contacted if the antibiotics need to be changed based on culture results. Please keep the area clean and dry. You may remove the outer bandage tomorrow, but do not remove the packing until Saturday. This can be performed by her primary care provider or here in the emergency department. The wound should be reassessed in 48 hours. Return to the emergency department for any significantly worsening redness, swelling, drainage, bleeding, pain, or other concerning symptoms.
[2017-06-19] MEDS ORDERED: DIPHTHERIA/TETANUS/PERTUSSIS 0.5 ML SYR/VIAL IM. ONE (15:15)
--- NOTE | 2017-06-19 15:15 | EMERGENCY ROOM VISIT NOTE ---
ED Visit Note First contact with patient: 14:55 I did evaluate and examine this patient myself. I did guide management for the patient. I agree with the PA's assessment as discussed. Please see the PAs dictation for further details. The patient appears to have a cutaneous abscess to her right thigh. There is a black eschar on top. My concern was for MRSA. She does state that she had a previous abscess many years ago. The abscess was I&D here and the patient was given a tetanus booster. She was discharged with antibiotic coverage for MRSA.
[2017-06-19] MEDS ORDERED: DOXY100C PO (15:21)
[2017-06-21] MEDS ORDERED: LISI-461 PO (11:58)
== END 2017-06-19 16:12 | disposition home or self-care (01) ==
LOC: C.EDB 14:42 → C.EDD 16:12
DX: L02.415 Cutaneous abscess of right lower limb (principal); E11.9 Type 2 diabetes mellitus without complications; I10 Essential (primary) hypertension; E78.5 Hyperlipidemia, unspecified; F41.9 Anxiety disorder, unspecified

== ENCOUNTER 2017-06-21 12:25 | Emergency (ER) | payer OTHER, MEDICARE ==
[~2017-06-21] VITALS: Ht 149.9 cm; Wt 74.8 kg
[~2017-06-21 12:25] MED LIST changes: +DOXY100C PO; +LISI-461 PO; -METF1000 PO; -OXYC-609 PO; -OXYC1TAB3 PO
[2017-06-21 12:37] VITALS: Ht 149.9 cm; Wt 74.8 kg
[2017-06-21] MEDS ORDERED: AMX875 PO (13:06)
--- NOTE | 2017-06-21 13:07 | EMERGENCY ROOM VISIT NOTE ---
ED Visit Note First contact with patient: 12:40 CHIEF COMPLAINT: Recheck right thigh abscess HPI: Patient is a 66-year-old female who returns to the emergency department as advised for recheck of an abscess that was I&D here in the emergency department 2 days ago. She tried to get in with her primary care provider but was unable to and thus presented here for reevaluation and packing removal. Patient reports that she has been taking the antibiotics as prescribed without difficulty. She has not changed the bandage from 2 days ago. She feels that the area is less tender and painful. She has not had any fevers. REVIEW OF SYSTEMS: Review of systems as per HPI. All other systems reviewed were negative. At least 6 systems reviewed. PMH: Electronic medical records are reviewed and summarized as above/below. See Problem List. She reports that her tetanus is up-to-date. SOCIAL HISTORY: Patient lives at home with her spouse. Retired. PHYSICAL EXAM: Vital Signs: Reviewed Nurse's notes. MENTAL STATUS: Patient is a pleasant, well-appearing 66-year-old white female who is awake and alert and in no acute distress. SKIN: Examination of the proximal inner thigh showed the prior I&D site with packing in place. Packing was removed, wound was palpated and there was no further purulent drainage present. There is still some induration, but no significant erythema. No lymphangitic streaking. No inguinal lymphadenopathy noted. EMERGENCY DEPARTMENT COURSE: The patient was seen and examined as above. Her old records are reviewed. Culture from 2 days ago is growing a group B beta strep with sensitivities pending. She is presently on doxycycline. Antibiotic gram was reviewed. We will have her stop the doxycycline and switched to amoxicillin 875 twice daily for an additional 5 days. She will continue local wound care measures and warm compresses. She was encouraged to follow-up with her primary care provider next week for recheck. Medication reconciliation: I attest that I have personally reviewed the patient' s current medication list. Blood pressure screening: Patient was found to have a slightly elevated blood pressure due to circumstances. I do not believe that the patient requires hypertension monitoring. Problem List Medical Problems: (1) Anxiety State Nos Status: Chronic (2) Bronchitis Status: Resolved (3) Delisa infection of genital region Status: Resolved (4) Candidiasis Status: Resolved (5) Cellulitis Status: Resolved (6) Dehydration Status: Resolved (7) Diabetes Status: Chronic (8) Diabetes mellitus type 2, uncontrolled Status: Resolved (9) Diabetes mellitus, type 2 Status: Chronic (10) Dyslipidemia Status: Chronic (11) Esophageal Reflux Status: Chronic (12) Fall Status: Resolved (13) Fall Status: Resolved (14) GERD (gastroesophageal reflux disease) Status: Chronic (15) Hip pain Status: Resolved (16) Hip pain, right Status: Resolved (17) Hyperglycemia Status: Resolved (18) Hyperglycemia Status: Resolved (19) Hyperglycemia Status: Resolved (20) Hyperlipidemia Nec/Nos Status: Chronic (21) Hypertension Status: Resolved (22) Hypertension Status: Chronic (23) Hypertension Nos Status: Chronic (24) Hyperthyroidism Status: Chronic (25) Hypothyroidism Nos Status: Chronic (26) Near syncope Status: Resolved (27) Orthostasis Status: Resolved (28) Pre-syncope Status: Resolved (29) Shingles outbreak Status: Resolved Surgical Problems: (1) Hx of cholecystectomy Status: Resolved (2) Rotator cuff rupture Status: Resolved (3) Status post cholecystectomy Status: Resolved Current/Historical Medications Scheduled Amoxicillin (Amoxicillin), 1 TAB PO BID Atorvastatin (Lipitor), 40 MG PO DAILY Doxycycline Hyclate (Vibramycin), 100 MG PO BID Hydrochlorothiazide (Hctz), 12.5 MG PO DAILY Insulin Lispro Protamine & Lis (Humalog Mix 75/25 Kwikpen), 25 UNITS SQ QPM Lisinopril (Zestril), 10 MG PO DAILY Metformin Hcl (Glucophage), 1,000 MG PO BID Methimazole (Tapazole), 10 MG PO DAILY Pantoprazole (Protonix), 40 MG PO DAILY Paroxetine (Paxil), 40 MG PO DAILY Scheduled PRN Insulin Lispro 75/25 (Humalog Mix 75/25), 35 UNITS SC QAM PRN for UD Allergies Coded Allergies: No Known Allergies (Unverified , 03/15/17) Vital Signs Date Time Temp Pulse Resp B/P (MAP) Pulse Ox O2 Delivery O2 Flow Rate FiO2 06/21/17 13:16 36.8 91 18 161/96 97 06/21/17 13:14 91 18 161/96 97 Room Air 06/21/17 12:37 36.8 97 18 159/101 97 Room Air Departure Information Impression Primary Impression: Abscess of right thigh Additional Impression: Abscess packing removal Prescriptions Amoxicillin (Amoxicillin) 875 Mg Tab 1 TAB PO BID, #14 TAB Prov: Patrica Dunham PA 06/21/17 Referrals Manuel Herman M.D. (PCP) Patient Instructions My [facility] Additional Instructions Stop Doxycycline. Amoxicillin 875 mg: Take one pill 2 times daily for 7 days for your skin infection. All antibiotics can cause diarrhea. If this occurs and you feel worse or it does not resolve in 1-2 days follow up with your doctor or return to the Emergency Department as this could be signs of serious underlying problems. Any medication can cause an allergic reaction, stop the pills immediately and return to the ER for rash, hives, breathing difficulties, or swelling. Ibuprofen(Motrin, Advil) may be used for fever or pain. Use 600mg every six hours as needed. Take with food. Avoid using more than 2400mg in a 24 hour period. Do not use 2400mg per day for more than three consecutive days without physician direction. Prolonged inappropriate use can lead to stomach upset or ulcers. (AND/OR) Acetaminophen(Tylenol) may be used for fever or pain. Use 1000mg every six hours as needed. Avoid using more than 3000mg in a 24 hour period. Warm compresses to the affected area 4 times daily for 15-20 minutes. Dressing changes daily. May bathe. Rest and drink plenty of fluids. Continue current medications. Return to the ER for severe pain, persistent fevers, spreading redness, or any worsening of your condition. Follow up with your primary physician within 2-3 days for a recheck of the current condition. Problem Qualifiers
[2017-06-21 13:16] VITALS: BP 161/96; PULSE 91; TEMP 36.8; O2SAT 97
[2017-06-21] MEDS ORDERED: HMLI7525 SC (13:42)
[2017-06-21] MEDS ORDERED: PANT40TA PO (14:42)
[2017-06-21] MEDS ORDERED: PXL/40 PO (14:42)
[2017-06-21] MEDS ORDERED: HYDR12.56 PO (14:42)
[2017-06-21] MEDS ORDERED: METH10TA6 PO (14:42)
[2017-06-21] MEDS ORDERED: LPT40 PO (15:30)
[2017-06-21] MEDS ORDERED: INSU75IN2 SQ (16:03)
[2017-06-21] MEDS ORDERED: METF1000 PO (16:03)
== END 2017-06-21 13:19 | disposition home or self-care (01) ==
LOC: C.EDB 12:28 → C.EDD 13:19
DX: Z09 Encounter for follow-up examination after completed treatment for conditions other than malignant neoplasm (principal); L02.415 Cutaneous abscess of right lower limb; F41.9 Anxiety disorder, unspecified; E11.9 Type 2 diabetes mellitus without complications; E78.5 Hyperlipidemia, unspecified; K21.9 Gastro-esophageal reflux disease without esophagitis; I10 Essential (primary) hypertension; E03.9 Hypothyroidism, unspecified; Z90.49 Acquired absence of other specified parts of digestive tract; Z88.0 Allergy status to penicillin; Z79.84 Long term (current) use of oral hypoglycemic drugs; Z79.899 Other long term (current) drug therapy

== ENCOUNTER 2018-05-14 11:33 | Inpatient (IN) ==
[2018-05-14] MEDS ORDERED: ALBUTEROL 0.083% NEBU SOLN 3 ML VIAL NEB STA (12:41)
[2018-05-14] MEDS ORDERED: hydroCHLOROthiazide 25 MG TAB PO STA (12:44)
[2018-05-14] MEDS ORDERED: SODIUM CHLORIDE 0.9% 1000ML 500 ML IV ONE (12:44)
--- NOTE | 2018-05-14 13:07 | XRay Report ---
XR chest 1V portable CLINICAL HISTORY: Cough. COMPARISON STUDY: Chest radiograph October 23, 2017. FINDINGS: Lung volumes are at the lower limits of normal. There is no consolidation or evidence for p ulmonary edema. Cardiac size is normal. Mediastinal contours are normal. Appearance of the chest is u nchanged. IMPRESSION: No acute cardiopulmonary findings. Electronically signed by: Walt Zuniga M.D. 05/14/2018 1:06 PM
[2018-05-14 13:08] LABS: Basophils # (auto) 0.05 K/uL (0-0.2); Basophils % (auto) 0.6 %; Eosinophils # (auto) 0.05 K/uL (0-0.5); Eosinophils % (auto) 0.6 %; Hematocrit (blood only) 41.9 % (37-47); Hemoglobin 14.6 g/dL (12.0-16.0); Immature Granulocytes # (auto) 0.01 K/uL (0.00-0.02); Immature Granulocytes % (auto) 0.1 %; Lymphocytes # (auto) 2.12 K/uL (1.2-3.4); Lymphocytes % (auto) 26.7 %; Mean Corpuscular Hgb Conc 34.8 g/dL (32-36); Mean Corpuscular Volume 90.3 fL (80-100); Mean Platelet Volume 10.7 fL (7.4-10.4); Monocytes # (auto) 0.53 K/uL (0.11-0.59); Monocytes % (auto) 6.7 %; Neutrophils # (auto) 5.19 K/uL (1.4-6.5); Neutrophils % (auto) 65.3 %; Platelet Count 301 K/uL (130-400); RDW Coefficient of Variation 12.3 % (11.5-14.5); RDW Standard Deviation 40.8 fL (36.4-46.3); Red Blood Count 4.64 M/uL (4.2-5.4); White Blood Count 7.95 K/uL (4.8-10.8)
[2018-05-14] MEDS: LISINOPRIL 10 MG TAB PO SCH ×2 (13:25→15:09)
[2018-05-14 13:32] LABS: Acetaminophen 14 ug/ml (10-30); Salicylate < 1.7 mg/dl (2.8-20)
[2018-05-14 13:38] LABS: Albumin Level 3.2 gm/dl (3.4-5.0); Calcium 8.9 mg/dl (8.5-10.1); Creatinine Clr Calc Pharmacy 50.7 ml/min; Est GFR (African American) 76.1; Est GFR (Non-African American) 65.7; Potassium 4.8 mmol/L (3.5-5.1)
[2018-05-14 13:47] LABS: Appearance Urine Clear (Clear); Bilirubin Urine Negative (Negative); Color Urine Yellow; Glucose Urine UA 3+ (Negative); Ketones Urine 2+ (Negative); Leukocyte Esterase Urine Negative (Negative); Nitrite Urine Negative (Negative); Protein Urine 2+ (Negative); Urobilinogen Urine Negative (Negative)
[2018-05-14 13:51] LABS: Albumin Globulin Ratio 0.7 (0.9-2); Bilirubin,Total 0.4 mg/dl (0.2-1); Globulin 4.7 gm/dl (2.5-4.0); Total Protein 7.9 gm/dl (6.4-8.2)
[2018-05-14 14:04] LABS: Amphetamines+Metham, Urine Neg (Neg); Barbiturates, Urine Neg (Neg); Benzodiazepine, Urine Neg (Neg); Cocaine, Urine Neg (Neg); MDMA (Ecstacy), Urine Neg (Neg); Methadone, Urine Neg (Neg); Opiate, Urine Neg (Neg); Phencyclidine, Urine Neg (Neg)
[2018-05-14] MEDS ORDERED: SODIUM CHLORIDE 0.9% 1000ML 1,000 ML IV ONE ×2 (14:06→16:13)
[2018-05-14] MEDS ORDERED: INSULIN HUMAN REGULAR SC STA ×3 (14:06→19:16)
[2018-05-14 14:08] LABS: Bacteria Urine 2+ (Negative)
[2018-05-14 14:09] LABS: RBC Urine 0-4 /hpf (0-4)
[2018-05-14] MEDS ORDERED: cefTRIAXone SODIUM 1,000 MG/50 ML BAG IV STA (14:50)
[2018-05-14] MEDS ORDERED: LISINOPRIL 5 MG TAB PO ONE (15:08)
[2018-05-14] MEDS ORDERED: INSULIN ASPART 100 UNITS/ML 3 ML PEN SC STA (15:21)
[2018-05-14] MEDS ORDERED: INSULIN ASPART PER UNIT ONE (15:29)
[2018-05-14] MEDS ORDERED: INSULIN HUMAN REGULAR SC SCH ×2 (16:30→21:00)
[2018-05-14] MEDS ORDERED: NovoLIN-R INSULIN PER UNIT CHARGE SC STA (17:56)
[2018-05-14] MEDS ORDERED: METOPROLOL TARTRATE 25 MG TAB PO STA (19:29)
[2018-05-14] MEDS ORDERED: METOPROLOL TARTRATE 25 MG TAB PO SCH (19:30)
--- NOTE | 2018-05-14 20:21 | Emergency Department Note ---
Entered by Tiago Salazar acting as a scribe for Blair Roche MD History of Present Illness General Chief complaint: Flu Like Symptoms Stated complaint: FLU, DIABETES Time Seen by Provider: 05/14/18 12:31 Source: patient Limitations: no limitations History of Present Illness Provider complaint: Depression Onset (ago): day(s) Location: head (Psych) Pain Consistency: + other (worsening) Maximum Pain Intensity: 5 Quality: + other (Depression) Associated symptoms: + cough (Flu-like symptoms) Treatments prior to arrival: none The patient is a 67 year old female who presents to the Emergency Room with complaints of worsening depression for the past several days. The patient states that this is a hard time of year for her, as yesterday would have been her daughter's 43rd birthday. Her daughter in 1994. The patient states "I would like some help." She admits that she has not been taking her medications regularly and has not taken her blood pressure medications in the past week. The patient denies being suicidal or homicidal. She adds that she has been dealing with a cough and flu-like symptoms for the past couple of weeks , since she received the flu vaccination. The patient denies any other phsyical complaints. Home Medications Home Medications Medication Instructions Recorded Confirmed Type acetaminophen [Tylenol Extra 1,000 mg PO BID PRN 03/17/18 05/15/18 History Strength] aspirin 81 mg PO QAM 03/17/18 05/14/18 History atorvastatin 40 mg PO QAM 03/17/18 05/14/18 History hydrochlorothiazide 12.5 mg PO QAM 03/17/18 05/14/18 History insulin lispro protamin-lispro 30 unit SUBCUT QDD 03/17/18 05/14/18 History [Humalog Mix 75-25 KwikPen] insulin lispro protamin-lispro 45 unit SUBCUT QDB 03/17/18 05/14/18 History [Humalog Mix 75-25 KwikPen] lisinopril 10 mg PO QAM 03/17/18 05/14/18 History methimazole 10 mg PO QAM 03/17/18 05/14/18 History pantoprazole 40 mg PO DAILYBB 03/17/18 05/15/18 History venlafaxine 75 mg PO QAM 03/17/18 05/14/18 History doxylamine succinate 25 mg PO HS PRN 05/15/18 05/15/18 History empagliflozin [Jardiance] 25 mg PO DAILY 05/15/18 05/15/18 History multivitamin 1 tab PO DAILY 05/15/18 05/15/18 History tramadol 50 mg PO Q8H PRN 05/15/18 05/15/18 History Allergies Allergy/AdvReac Type Severity Reaction Status Date / Time No Known Allergies Allergy Unverified 05/14/18 13:50 Past Med/Surg History Medical History Diabetes mellitus type 2, uncontrolled (Resolved) Pre-syncope (Resolved) Dyslipidemia HNP (herniated nucleus pulposus), lumbar Hyperthyroidism Hypertension Type II diabetes mellitus (Chronic) Major depressive disorder, recurrent severe without psychotic features (Acute) Hyperglycemia (Inactive) Hypothyroidism (Inactive) Sinusitis (Inactive) Depression Diabetes HLD (hyperlipidemia) HTN (hypertension) Hyperthyroidism Social History marital status: Current Living Situation: Spouse current occupation: retired - worked at [employer] and [employer] Feels Safe at Home: Yes Smoking Status: Never smoker Hx Alcohol Use: No Hx Substance Use: No Beliefs That Will Affect Care: None Preferred Language: [place] Islander Communication Ability: Effective Match Up Person Required: No Review of Systems See HPI for pertinent positives & negatives. and A total of 10 systems reviewed and were otherwise negative Physical Exam Vital Signs Vital Signs - 24 hr 05/16/18 10:31 05/16/18 15:01 Temperature 36.6 C Temperature Source Oral Pulse Rate [Finger] 109 H Pulse Rate [Left Brachial] 101 H 102 H Pulse Rhythm [Finger] Regular Pulse Rhythm [Left Brachial] Regular Regular Pulse Strength [Finger] Normal Pulse Strength [Left Brachial] Normal Normal Respiratory Rate 16 16 Respiratory Effort / Characteristics Non-Labored Spontaneous Non-Labored Spontaneous Respiratory Depth Normal Normal Respiratory Pattern Regular Regular Blood Pressure [Left Arm] 119/80 101/70 Blood Pressure [Right Arm] 89/60 L Blood Pressure Mean [Left Arm] 93 80 Blood Pressure Mean [Right Arm] 69 Blood Pressure Position [Left Arm] Sitting Sitting Blood Pressure Position [Right Arm] Standing GENERAL: Awake, alert, tearful on exam. In mild distress. HENT: Normocephalic, atraumatic. Oropharynx unremarkable. EYES: Normal conjunctiva. Sclera non-icteric. NECK: Supple. No nuchal rigidity. FROM. No JVD. RESPIRATORY: Clear to auscultation. CARDIAC: Regular rate, normal rhythm. Extremities warm and well perfused. Pulses equal. ABDOMEN: Soft, non-distended. No tenderness to palpation. No rebound or guarding. No masses. RECTAL: Deferred. MUSCULOSKELETAL: Chest examination reveals no tenderness. The back is symmetrical on inspection without obvious abnormality. There is no CVA tenderness to palpation. No joint edema. LOWER EXTREMITIES: Calves are equal size bilaterally and non-tender. No edema. No discoloration. NEURO: Normal sensorium. No sensory or motor deficits noted. SKIN: No rash or jaundice noted. PSYCH: Endorses worsening depression. Denies suicidal/homicidal ideation. Course 1238: Past medical records reviewed. The patient was evaluated in room A3, and a complete history and physical examination were performed. Administered Medications Acetaminophen (Tylenol) 650 mg PO Q4H PRN PRN Reason: Headache or Minor Fever Stop: 06/14/18 03:31 Last Admin: 05/16/18 00:15 Dose: 650 mg Admin: 05/15/18 08:27 Dose: 650 mg Admin: 05/15/18 03:45 Dose: 650 mg Al Hydrox/Mg Hydrox/Simethicone (Maalox) 30 ml PO Q4H PRN PRN Reason: GI Upset Stop: 06/14/18 03:31 Last Admin: 05/15/18 03:45 Dose: 30 ml Aspirin (Ecotrin Ectab) 81 mg PO QAM [facility] Stop: 06/14/18 11:14 Last Admin: 05/16/18 08:44 Dose: 81 mg Admin: 05/15/18 11:46 Dose: 81 mg Atorvastatin Calcium (Lipitor) 40 mg PO HS [facility] Stop: 06/14/18 21:59 Last Admin: 05/15/18 21:10 Dose: 40 mg Hydroxyzine HCl (Vistaril) 25 mg PO Q4H PRN PRN Reason: Anxiety Stop: 06/14/18 03:31 Last Admin: 05/15/18 03:53 Dose: 25 mg Insulin Aspart (Novolog Flexpen) 0 units SC ACHS IAN Stop: 06/14/18 08:44 Last Admin: 05/16/18 18:06 Dose: 13 units Admin: 05/16/18 13:18 Dose: 15 units Admin: 05/16/18 08:50 Dose: 11 units Admin: 05/15/18 21:23 Dose: 13 units Admin: 05/15/18 17:43 Dose: 13 units Admin: 05/15/18 13:09 Dose: 17 units Admin: 05/15/18 09:52 Dose: 15 units Insulin Glargine (Lantus Solostar Pen) 0 units SC BID [facility]; Protocol Stop: 06/14/18 20:59 Last Admin: 05/16/18 08:47 Dose: 30 units Admin: 05/15/18 21:11 Dose: 30 units Lisinopril (Zestril) 10 mg PO QAM [facility] Stop: 06/15/18 08:59 Last Admin: 05/16/18 08:44 Dose: 10 mg Admin: 05/15/18 11:51 Dose: 10 mg Methimazole (Tapazole) 10 mg PO QAM [facility] Stop: 06/14/18 11:14 Last Admin: 05/16/18 08:44 Dose: 10 mg Admin: 05/15/18 11:46 Dose: 10 mg Metoprolol Tartrate (Lopressor) 25 mg PO BID [facility] Stop: 06/15/18 09:44 Last Admin: 05/16/18 11:14 Dose: Not Given Multivitamins (Multivitamin Tab) 1 tab PO DAILY [facility] Stop: 06/14/18 11:14 Last Admin: 05/16/18 08:44 Dose: 1 tab Admin: 05/15/18 11:46 Dose: 1 tab Naproxen (Naprosyn) 375 mg PO BID [facility] Stop: 05/17/18 23:00 Last Admin: 05/16/18 08:44 Dose: 375 mg Admin: 05/15/18 21:10 Dose: 375 mg Admin: 05/15/18 11:46 Dose: 375 mg Pantoprazole Sodium (Protonix) 40 mg PO DAILYBB [facility] Stop: 06/15/18 07:59 Last Admin: 05/16/18 08:44 Dose: 40 mg Sodium Chloride ([place] Nasal) 1 - 2 sprays NA PRN PRN PRN Reason: Nasal Dryness/Congestion Stop: 06/14/18 03:31 Last Admin: 05/15/18 04:44 Dose: 2 sprays Tramadol HCl (Ultram) 50 mg PO Q8H PRN PRN Reason: Pain Stop: 06/14/18 11:03 Last Admin: 05/16/18 02:02 Dose: 50 mg Admin: 05/15/18 11:47 Dose: 50 mg Discontinued Medications Albuterol (Ventolin 0.083% 2.5mg/3ml) 2.5 mg NEB NOW STA Stop: 05/14/18 12:42 Last Admin: 05/14/18 13:25 Dose: 2.5 mg Hydrochlorothiazide (Hctz) 12.5 mg PO NOW STA Stop: 05/14/18 12:45 Last Admin: 05/14/18 12:59 Dose: 12.5 mg Hydrochlorothiazide (Hctz) 12.5 mg PO QAM IAN Stop: 06/14/18 11:14 Last Admin: 05/16/18 08:49 Dose: 12.5 mg Admin: 05/15/18 11:45 Dose: 12.5 mg Sodium Chloride (Nss 1000ml) 500 mls @ 999 mls/hr IV .Q31M ONE Stop: 05/14/18 13:14 Last Infusion: 05/14/18 13:32 Dose: Admin: 05/14/18 12:59 Dose: 999 mls/hr Sodium Chloride (Nss 1000ml) 1,000 mls @ 999 mls/hr IV .Q1H1M ONE Stop: 05/14/18 15:06 Last Infusion: 05/14/18 16:09 Dose: 0 mls/hr Admin: 05/14/18 14:32 Dose: 999 mls/hr Ceftriaxone Sodium (Rocephin) 1,000 mg in 50 mls @ 100 mls/hr IV NOW STA Stop: 05/14/18 15:19 Last Infusion: 05/14/18 16:09 Dose: 0 mls/hr Admin: 05/14/18 15:13 Dose: 100 mls/hr Sodium Chloride (Nss 1000ml) 1,000 mls @ 999 mls/hr IV .Q1H1M ONE Stop: 05/14/18 17:13 Last Infusion: 05/14/18 23:12 Dose: 0 mls/hr Admin: 05/14/18 16:21 Dose: 999 mls/hr Potassium Chloride (K Jameel / Wtr) 10 meq in 100 mls @ 100 mls/hr IV Q1H IAN Stop: 05/14/18 23:29 Last Infusion: 05/14/18 23:12 Dose: 0 mls/hr Admin: 05/14/18 21:46 Dose: 100 mls/hr Infusion: 05/14/18 21:46 Dose: 100 mls/hr Admin: 05/14/18 21:41 Dose: 100 mls/hr Insulin Aspart (Novolog Flexpen) 30 units SC NOW STA Stop: 05/14/18 15:22 Last Admin: 05/14/18 15:31 Dose: 30 units Insulin Aspart (Novolog Per Unit) Confirm Administered Dose 1 units .ROUTE .STK- MED ONE Stop: 05/14/18 15:30 Last Admin: 05/14/18 15:33 Dose: Not Given Insulin Aspart (Novolog Flexpen) 0 units SC TODAY@0000,0400 [facility] Stop: 05/16/18 04:01 Last Admin: 05/16/18 04:12 Dose: Not Given Admin: 05/16/18 00:11 Dose: 4 units Insulin Glargine (Lantus Solostar Pen) 25 units SC NOW STA; Protocol Stop: 05/15/18 08:39 Last Admin: 05/15/18 08:51 Dose: 25 units Insulin Human Regular (Novolin R) 20 units SC NOW STA Stop: 05/14/18 14:07 Last Admin: 05/14/18 15:12 Dose: 20 units Insulin Human Regular (Novolin R) 30 units SC [facility] Stop: 06/13/18 16:29 Last Admin: 05/14/18 16:19 Dose: 30 units Insulin Human Regular (Novolin R) 20 units SC NOW STA Stop: 05/14/18 17:14 Last Admin: 05/14/18 17:17 Dose: 20 units Insulin Human Regular (Novolin R U-100 Per Unit) 20 units SC NOW STA Stop: 05/14/18 17:57 Last Admin: 05/14/18 18:08 Dose: 20 units Insulin Human Regular (Novolin R) 20 units SC NOW [facility] Stop: 05/14/18 19:17 Last Admin: 05/14/18 19:42 Dose: Not Given Lisinopril (Zestril) 10 mg PO QAM [facility] Stop: 06/13/18 12:44 Last Admin: 05/14/18 15:09 Dose: Not Given Lisinopril (Zestril) Confirm Administered Dose 10 mg PO .STK-MED ONE Stop: 05/14/18 15:09 Last Admin: 05/14/18 15:12 Dose: 10 mg Metoprolol Tartrate (Lopressor) 25 mg PO NOW STA Stop: 05/14/18 19:30 Last Admin: 05/14/18 20:28 Dose: Not Given Ondansetron HCl (Zofran) 4 mg IV NOW Stop: 05/14/18 21:23 Last Admin: 05/14/18 21:38 Dose: 4 mg Potassium Chloride (Klor-Con M20) 80 meq PO NOW STA Stop: 05/14/18 21:23 Last Admin: 05/14/18 21:40 Dose: 80 meq Venlafaxine HCl (Effexor Extended Release) 75 mg PO [facility] Stop: 06/14/18 11:14 Last Admin: 05/16/18 08:44 Dose: 75 mg Admin: 05/15/18 11:46 Dose: 75 mg Medical Decision Making Differential Diagnosis Differential diagnosis: Etiologies such as psychiatric disorder, infection, hypoglycemia, electrolyte abnormalities, cardiac sources, intracerebral event, toxicological process, neurologic disorder, as well as others were entertained. Medical Records Attestation: I reviewed the patient's medical records. Home Medications Current Medication List: was personally reviewed by me Laboratory Data Attestation: I reviewed the patient's lab results. Result diagrams: 05/14/18 12:48 05/16/18 18:45 Lab Results 05/14/18 05/14/18 05/14/18 Range/Units 11:45 12:48 12:48 WBC 7.95 (4.8-10.8) K/uL RBC 4.64 (4.2-5.4) M/uL Hgb 14.6 (12.0-16.0) g/dL Hct 41.9 (37-47) % MCV 90.3 (80-100) fL MCH 31.5 (25-34) pg MCHC 34.8 (32-36) g/dL RDW Std Deviation 40.8 (36.4-46.3) fL RDW Coeff of Emil 12.3 (11.5-14.5) % Plt Count 301 (130-400) K/uL MPV 10.7 H (7.4-10.4) fL Immature Gran % (Auto) 0.1 % Neut % (Auto) 65.3 % Lymph % (Auto) 26.7 % [place] % (Auto) 6.7 % Eos % (Auto) 0.6 % Baso % (Auto) 0.6 % Immature Gran # (Auto) 0.01 (0.00-0.02) K/uL Neut # (Auto) 5.19 (1.4-6.5) K/uL Lymph # (Auto) 2.12 (1.2-3.4) K/uL [place] # (Auto) 0.53 (0.11-0.59) K/uL Eos # (Auto) 0.05 (0-0.5) K/uL Baso # (Auto) 0.05 (0-0.2) K/uL Sodium 132 L (136-145) mmol/L Potassium 4.8 (3.5-5.1) mmol/L Chloride 99 (98-107) mmol/L Carbon Dioxide 26 (21-32) mmol/L Anion Gap 7.0 (3-11) BUN 14 (7-18) mg/dl Creatinine 0.90 (0.6-1.2) mg/dl Est Cr Clr Drug Dosing 50.7 ml/min Est GFR ( Amer) 76.1 Est GFR (Non-Af Amer) 65.7 BUN/Creatinine Ratio 16.0 (10-20) Glucose 457 H* (70-99) mg/dl POC Glucose 390 H* (70-99) Estimat Average Glucose mg/dl Hemoglobin A1c (4.5-5.6) % Calcium 8.9 (8.5-10.1) mg/dl Magnesium (1.8-2.4) mg/dl Total Bilirubin 0.4 (0.2-1) mg/dl AST 7 L (15-37) U/L ALT 14 (12-78) U/L Alkaline Phosphatase 108 (45-117) U/L Total Protein 7.9 (6.4-8.2) gm/dl Albumin 3.2 L (3.4-5.0) gm/dl Globulin 4.7 H (2.5-4.0) gm/dl Albumin/Globulin Ratio 0.7 L (0.9-2) Beta-Hydroxybutyric Acd 21.61 H (0.2-2.81) mg/dl TSH 0.562 (0.300-4.500) uIu/ml Urine Color Urine Appearance (Clear) Urine pH (4.5-7.5) Ur Specific [place] (1.000-1.030) Urine Protein (Negative) Urine Glucose (UA) (Negative) Urine Ketones (Negative) Urine Blood (Negative) Urine Nitrite (Negative) Urine Bilirubin (Negative) Urine Urobilinogen (Negative) Ur Leukocyte Esterase (Negative) Urine RBC (0-4) /hpf Urine WBC (0-5) /hpf Ur Epithelial Cells (0-5) /lpf Urine Bacteria (Negative) Urine Yeast (None Prsent) Salicylates (2.8-20) mg/dl Urine Opiates Screen (Neg) Ur Methadone, Qual (Neg) Acetaminophen (10-30) ug/ml Urine Barbiturates (Neg) Ur Phencyclidine (PCP) (Neg) U Amphetamin/Meth Scrn (Neg) MDMA (Ecstasy) Screen (Neg) U Benzodiazepines Scrn (Neg) Ur Cocaine Metabolite (Neg) U Marijuana (THC) Screen (Neg) Ethyl Alcohol mg/dL (0-3) mg/dl Influenza Type A Ag (Neg) Influenza Type B Ag (Neg) 05/14/18 05/14/18 05/14/18 Range/Units 12:48 12:48 12:48 WBC (4.8-10.8) K/uL RBC (4.2-5.4) M/uL Hgb (12.0-16.0) g/dL Hct (37-47) % MCV (80-100) fL MCH (25-34) pg MCHC (32-36) g/dL RDW Std Deviation (36.4-46.3) fL RDW Coeff of Emil (11.5-14.5) % Plt Count (130-400) K/uL MPV (7.4-10.4) fL Immature Gran % (Auto) % Neut % (Auto) % Lymph % (Auto) % [place] % (Auto) % Eos % (Auto) % Baso % (Auto) % Immature Gran # (Auto) (0.00-0.02) K/uL Neut # (Auto) (1.4-6.5) K/uL Lymph # (Auto) (1.2-3.4) K/uL [place] # (Auto) (0.11-0.59) K/uL Eos # (Auto) (0-0.5) K/uL Baso # (Auto) (0-0.2) K/uL Sodium (136-145) mmol/L Potassium (3.5-5.1) mmol/L Chloride (98-107) mmol/L Carbon Dioxide (21-32) mmol/L Anion Gap (3-11) BUN (7-18) mg/dl Creatinine (0.6-1.2) mg/dl Est Cr Clr Drug Dosing ml/min Est GFR ( Amer) Est GFR (Non-Af Amer) BUN/Creatinine Ratio (10-20) Glucose (70-99) mg/dl POC Glucose (70-99) Estimat Average Glucose 395 mg/dl Hemoglobin A1c 15.4 H (4.5-5.6) % Calcium (8.5-10.1) mg/dl Magnesium (1.8-2.4) mg/dl Total Bilirubin (0.2-1) mg/dl AST (15-37) U/L ALT (12-78) U/L Alkaline Phosphatase (45-117) U/L Total Protein (6.4-8.2) gm/dl Albumin (3.4-5.0) gm/dl Globulin (2.5-4.0) gm/dl Albumin/Globulin Ratio (0.9-2) Beta-Hydroxybutyric Acd (0.2-2.81) mg/dl TSH (0.300-4.500) uIu/ml Urine Color Urine Appearance (Clear) Urine pH (4.5-7.5) Ur Specific [place] (1.000-1.030) Urine Protein (Negative) Urine Glucose (UA) (Negative) Urine Ketones (Negative) Urine Blood (Negative) Urine Nitrite (Negative) Urine Bilirubin (Negative) Urine Urobilinogen (Negative) Ur Leukocyte Esterase (Negative) Urine RBC (0-4) /hpf Urine WBC (0-5) /hpf Ur Epithelial Cells (0-5) /lpf Urine Bacteria (Negative) Urine Yeast (None Prsent) Salicylates < 1.7 L (2.8-20) mg/dl Urine Opiates Screen (Neg) Ur Methadone, Qual (Neg) Acetaminophen 14 (10-30) ug/ml Urine Barbiturates (Neg) Ur Phencyclidine (PCP) (Neg) U Amphetamin/Meth Scrn (Neg) MDMA (Ecstasy) Screen (Neg) U Benzodiazepines Scrn (Neg) Ur Cocaine Metabolite (Neg) U Marijuana (THC) Screen (Neg) Ethyl Alcohol mg/dL < 3.0 (0-3) mg/dl Influenza Type A Ag (Neg) Influenza Type B Ag (Neg) 05/14/18 05/14/18 05/14/18 Range/Units 12:56 13:30 13:30 WBC (4.8-10.8) K/uL RBC (4.2-5.4) M/uL Hgb (12.0-16.0) g/dL Hct (37-47) % MCV (80-100) fL MCH (25-34) pg MCHC (32-36) g/dL RDW Std Deviation (36.4-46.3) fL RDW Coeff of Emil (11.5-14.5) % Plt Count (130-400) K/uL MPV (7.4-10.4) fL Immature Gran % (Auto) % Neut % (Auto) % Lymph % (Auto) % [place] % (Auto) % Eos % (Auto) % Baso % (Auto) % Immature Gran # (Auto) (0.00-0.02) K/uL Neut # (Auto) (1.4-6.5) K/uL Lymph # (Auto) (1.2-3.4) K/uL [place] # (Auto) (0.11-0.59) K/uL Eos # (Auto) (0-0.5) K/uL Baso # (Auto) (0-0.2) K/uL Sodium (136-145) mmol/L Potassium (3.5-5.1) mmol/L Chloride (98-107) mmol/L Carbon Dioxide (21-32) mmol/L Anion Gap (3-11) BUN (7-18) mg/dl Creatinine (0.6-1.2) mg/dl Est Cr Clr Drug Dosing ml/min Est GFR ( Amer) Est GFR (Non-Af Amer) BUN/Creatinine Ratio (10-20) Glucose (70-99) mg/dl POC Glucose (70-99) Estimat Average Glucose mg/dl Hemoglobin A1c (4.5-5.6) % Calcium (8.5-10.1) mg/dl Magnesium (1.8-2.4) mg/dl Total Bilirubin (0.2-1) mg/dl AST (15-37) U/L ALT (12-78) U/L Alkaline Phosphatase (45-117) U/L Total Protein (6.4-8.2) gm/dl Albumin (3.4-5.0) gm/dl Globulin (2.5-4.0) gm/dl Albumin/Globulin Ratio (0.9-2) Beta-Hydroxybutyric Acd (0.2-2.81) mg/dl TSH (0.300-4.500) uIu/ml Urine Color Yellow Urine Appearance Clear (Clear) Urine pH 5.0 (4.5-7.5) Ur Specific [place] 1.040 H (1.000-1.030) Urine Protein 2+ H (Negative) Urine Glucose (UA) 3+ H (Negative) Urine Ketones 2+ H (Negative) Urine Blood Trace H (Negative) Urine Nitrite Negative (Negative) Urine Bilirubin Negative (Negative) Urine Urobilinogen Negative (Negative) Ur Leukocyte Esterase Negative (Negative) Urine RBC 0-4 (0-4) /hpf Urine WBC 5-10 H (0-5) /hpf Ur Epithelial Cells 5-10 H (0-5) /lpf Urine Bacteria 2+ H (Negative) Urine Yeast Budding H (None Prsent) Salicylates (2.8-20) mg/dl Urine Opiates Screen Neg (Neg) Ur Methadone, Qual Neg (Neg) Acetaminophen (10-30) ug/ml Urine Barbiturates Neg (Neg) Ur Phencyclidine (PCP) Neg (Neg) U Amphetamin/Meth Scrn Neg (Neg) MDMA (Ecstasy) Screen Neg (Neg) U Benzodiazepines Scrn Neg (Neg) Ur Cocaine Metabolite Neg (Neg) U Marijuana (THC) Screen Neg (Neg) Ethyl Alcohol mg/dL (0-3) mg/dl Influenza Type A Ag Neg for Influ A (Neg) Influenza Type B Ag Neg for Influ B (Neg) 05/14/18 05/14/18 05/14/18 Range/Units 15:23 15:25 16:08 WBC (4.8-10.8) K/uL RBC (4.2-5.4) M/uL Hgb (12.0-16.0) g/dL Hct (37-47) % MCV (80-100) fL MCH (25-34) pg MCHC (32-36) g/dL RDW Std Deviation (36.4-46.3) fL RDW Coeff of Emil (11.5-14.5) % Plt Count (130-400) K/uL MPV (7.4-10.4) fL Immature Gran % (Auto) % Neut % (Auto) % Lymph % (Auto) % [place] % (Auto) % Eos % (Auto) % Baso % (Auto) % Immature Gran # (Auto) (0.00-0.02) K/uL Neut # (Auto) (1.4-6.5) K/uL Lymph # (Auto) (1.2-3.4) K/uL [place] # (Auto) (0.11-0.59) K/uL Eos # (Auto) (0-0.5) K/uL Baso # (Auto) (0-0.2) K/uL Sodium (136-145) mmol/L Potassium (3.5-5.1) mmol/L Chloride (98-107) mmol/L Carbon Dioxide (21-32) mmol/L Anion Gap (3-11) BUN (7-18) mg/dl Creatinine (0.6-1.2) mg/dl Est Cr Clr Drug Dosing ml/min Est GFR ( Amer) Est GFR (Non-Af Amer) BUN/Creatinine Ratio (10-20) Glucose (70-99) mg/dl POC Glucose 411 H* 419 H* 458 H* (70-99) Estimat Average Glucose mg/dl Hemoglobin A1c (4.5-5.6) % Calcium (8.5-10.1) mg/dl Magnesium (1.8-2.4) mg/dl Total Bilirubin (0.2-1) mg/dl AST (15-37) U/L ALT (12-78) U/L Alkaline Phosphatase (45-117) U/L Total Protein (6.4-8.2) gm/dl Albumin (3.4-5.0) gm/dl Globulin (2.5-4.0) gm/dl Albumin/Globulin Ratio (0.9-2) Beta-Hydroxybutyric Acd (0.2-2.81) mg/dl TSH (0.300-4.500) uIu/ml Urine Color Urine Appearance (Clear) Urine pH (4.5-7.5) Ur Specific [place] (1.000-1.030) Urine Protein (Negative) Urine Glucose (UA) (Negative) Urine Ketones (Negative) Urine Blood (Negative) Urine Nitrite (Negative) Urine Bilirubin (Negative) Urine Urobilinogen (Negative) Ur Leukocyte Esterase (Negative) Urine RBC (0-4) /hpf Urine WBC (0-5) /hpf Ur Epithelial Cells (0-5) /lpf Urine Bacteria (Negative) Urine Yeast (None Prsent) Salicylates (2.8-20) mg/dl Urine Opiates Screen (Neg) Ur Methadone, Qual (Neg) Acetaminophen (10-30) ug/ml Urine Barbiturates (Neg) Ur Phencyclidine (PCP) (Neg) U Amphetamin/Meth Scrn (Neg) MDMA (Ecstasy) Screen (Neg) U Benzodiazepines Scrn (Neg) Ur Cocaine Metabolite (Neg) U Marijuana (THC) Screen (Neg) Ethyl Alcohol mg/dL (0-3) mg/dl Influenza Type A Ag (Neg) Influenza Type B Ag (Neg) 05/14/18 05/14/18 05/14/18 Range/Units 16:59 18:06 19:18 WBC (4.8-10.8) K/uL RBC (4.2-5.4) M/uL Hgb (12.0-16.0) g/dL Hct (37-47) % MCV (80-100) fL MCH (25-34) pg MCHC (32-36) g/dL RDW Std Deviation (36.4-46.3) fL RDW Coeff of Emil (11.5-14.5) % Plt Count (130-400) K/uL MPV (7.4-10.4) fL Immature Gran % (Auto) % Neut % (Auto) % Lymph % (Auto) % [place] % (Auto) % Eos % (Auto) % Baso % (Auto) % Immature Gran # (Auto) (0.00-0.02) K/uL Neut # (Auto) (1.4-6.5) K/uL Lymph # (Auto) (1.2-3.4) K/uL [place] # (Auto) (0.11-0.59) K/uL Eos # (Auto) (0-0.5) K/uL Baso # (Auto) (0-0.2) K/uL Sodium (136-145) mmol/L Potassium (3.5-5.1) mmol/L Chloride (98-107) mmol/L Carbon Dioxide (21-32) mmol/L Anion Gap (3-11) BUN (7-18) mg/dl Creatinine (0.6-1.2) mg/dl Est Cr Clr Drug Dosing ml/min Est GFR ( Amer) Est GFR (Non-Af Amer) BUN/Creatinine Ratio (10-20) Glucose (70-99) mg/dl POC Glucose 346 H 250 H 101 H (70-99) Estimat Average Glucose mg/dl Hemoglobin A1c (4.5-5.6) % Calcium (8.5-10.1) mg/dl Magnesium (1.8-2.4) mg/dl Total Bilirubin (0.2-1) mg/dl AST (15-37) U/L ALT (12-78) U/L Alkaline Phosphatase (45-117) U/L Total Protein (6.4-8.2) gm/dl Albumin (3.4-5.0) gm/dl Globulin (2.5-4.0) gm/dl Albumin/Globulin Ratio (0.9-2) Beta-Hydroxybutyric Acd (0.2-2.81) mg/dl TSH (0.300-4.500) uIu/ml Urine Color Urine Appearance (Clear) Urine pH (4.5-7.5) Ur Specific [place] (1.000-1.030) Urine Protein (Negative) Urine Glucose (UA) (Negative) Urine Ketones (Negative) Urine Blood (Negative) Urine Nitrite (Negative) Urine Bilirubin (Negative) Urine Urobilinogen (Negative) Ur Leukocyte Esterase (Negative) Urine RBC (0-4) /hpf Urine WBC (0-5) /hpf Ur Epithelial Cells (0-5) /lpf Urine Bacteria (Negative) Urine Yeast (None Prsent) Salicylates (2.8-20) mg/dl Urine Opiates Screen (Neg) Ur Methadone, Qual (Neg) Acetaminophen (10-30) ug/ml Urine Barbiturates (Neg) Ur Phencyclidine (PCP) (Neg) U Amphetamin/Meth Scrn (Neg) MDMA (Ecstasy) Screen (Neg) U Benzodiazepines Scrn (Neg) Ur Cocaine Metabolite (Neg) U Marijuana (THC) Screen (Neg) Ethyl Alcohol mg/dL (0-3) mg/dl Influenza Type A Ag (Neg) Influenza Type B Ag (Neg) 05/14/18 05/14/18 05/14/18 Range/Units 20:04 20:15 21:24 WBC (4.8-10.8) K/uL RBC (4.2-5.4) M/uL Hgb (12.0-16.0) g/dL Hct (37-47) % MCV (80-100) fL MCH (25-34) pg MCHC (32-36) g/dL RDW Std Deviation (36.4-46.3) fL RDW Coeff of Emil (11.5-14.5) % Plt Count (130-400) K/uL MPV (7.4-10.4) fL Immature Gran % (Auto) % Neut % (Auto) % Lymph % (Auto) % [place] % (Auto) % Eos % (Auto) % Baso % (Auto) % Immature Gran # (Auto) (0.00-0.02) K/uL Neut # (Auto) (1.4-6.5) K/uL Lymph # (Auto) (1.2-3.4) K/uL [place] # (Auto) (0.11-0.59) K/uL Eos # (Auto) (0-0.5) K/uL Baso # (Auto) (0-0.2) K/uL Sodium 140 D (136-145) mmol/L Potassium 2.7 L D (3.5-5.1) mmol/L Chloride 108 H (98-107) mmol/L Carbon Dioxide 23 (21-32) mmol/L Anion Gap 9.0 (3-11) BUN 15 (7-18) mg/dl Creatinine 0.93 (0.6-1.2) mg/dl Est Cr Clr Drug Dosing 49.0 ml/min Est GFR ( Amer) 73.2 Est GFR (Non-Af Amer) 63.1 BUN/Creatinine Ratio 15.6 (10-20) Glucose 50 L* (70-99) mg/dl POC Glucose 70 123 H (70-99) Estimat Average Glucose mg/dl Hemoglobin A1c (4.5-5.6) % Calcium 8.8 (8.5-10.1) mg/dl Magnesium (1.8-2.4) mg/dl Total Bilirubin (0.2-1) mg/dl AST (15-37) U/L ALT (12-78) U/L Alkaline Phosphatase (45-117) U/L Total Protein (6.4-8.2) gm/dl Albumin (3.4-5.0) gm/dl Globulin (2.5-4.0) gm/dl Albumin/Globulin Ratio (0.9-2) Beta-Hydroxybutyric Acd (0.2-2.81) mg/dl TSH (0.300-4.500) uIu/ml Urine Color Urine Appearance (Clear) Urine pH (4.5-7.5) Ur Specific [place] (1.000-1.030) Urine Protein (Negative) Urine Glucose (UA) (Negative) Urine Ketones (Negative) Urine Blood (Negative) Urine Nitrite (Negative) Urine Bilirubin (Negative) Urine Urobilinogen (Negative) Ur Leukocyte Esterase (Negative) Urine RBC (0-4) /hpf Urine WBC (0-5) /hpf Ur Epithelial Cells (0-5) /lpf Urine Bacteria (Negative) Urine Yeast (None Prsent) Salicylates (2.8-20) mg/dl Urine Opiates Screen (Neg) Ur Methadone, Qual (Neg) Acetaminophen (10-30) ug/ml Urine Barbiturates (Neg) Ur Phencyclidine (PCP) (Neg) U Amphetamin/Meth Scrn (Neg) MDMA (Ecstasy) Screen (Neg) U Benzodiazepines Scrn (Neg) Ur Cocaine Metabolite (Neg) U Marijuana (THC) Screen (Neg) Ethyl Alcohol mg/dL (0-3) mg/dl Influenza Type A Ag (Neg) Influenza Type B Ag (Neg) 05/15/18 05/15/18 05/15/18 Range/Units 00:45 07:34 09:46 WBC (4.8-10.8) K/uL RBC (4.2-5.4) M/uL Hgb (12.0-16.0) g/dL Hct (37-47) % MCV (80-100) fL MCH (25-34) pg MCHC (32-36) g/dL RDW Std Deviation (36.4-46.3) fL RDW Coeff of Emil (11.5-14.5) % Plt Count (130-400) K/uL MPV (7.4-10.4) fL Immature Gran % (Auto) % Neut % (Auto) % Lymph % (Auto) % [place] % (Auto) % Eos % (Auto) % Baso % (Auto) % Immature Gran # (Auto) (0.00-0.02) K/uL Neut # (Auto) (1.4-6.5) K/uL Lymph # (Auto) (1.2-3.4) K/uL [place] # (Auto) (0.11-0.59) K/uL Eos # (Auto) (0-0.5) K/uL Baso # (Auto) (0-0.2) K/uL Sodium (136-145) mmol/L Potassium (3.5-5.1) mmol/L Chloride (98-107) mmol/L Carbon Dioxide (21-32) mmol/L Anion Gap (3-11) BUN (7-18) mg/dl Creatinine (0.6-1.2) mg/dl Est Cr Clr Drug Dosing ml/min Est GFR ( Amer) Est GFR (Non-Af Amer) BUN/Creatinine Ratio (10-20) Glucose (70-99) mg/dl POC Glucose 185 H 324 H 440 H* (70-99) Estimat Average Glucose mg/dl Hemoglobin A1c (4.5-5.6) % Calcium (8.5-10.1) mg/dl Magnesium (1.8-2.4) mg/dl Total Bilirubin (0.2-1) mg/dl AST (15-37) U/L ALT (12-78) U/L Alkaline Phosphatase (45-117) U/L Total Protein (6.4-8.2) gm/dl Albumin (3.4-5.0) gm/dl Globulin (2.5-4.0) gm/dl Albumin/Globulin Ratio (0.9-2) Beta-Hydroxybutyric Acd (0.2-2.81) mg/dl TSH (0.300-4.500) uIu/ml Urine Color Urine Appearance (Clear) Urine pH (4.5-7.5) Ur Specific [place] (1.000-1.030) Urine Protein (Negative) Urine Glucose (UA) (Negative) Urine Ketones (Negative) Urine Blood (Negative) Urine Nitrite (Negative) Urine Bilirubin (Negative) Urine Urobilinogen (Negative) Ur Leukocyte Esterase (Negative) Urine RBC (0-4) /hpf Urine WBC (0-5) /hpf Ur Epithelial Cells (0-5) /lpf Urine Bacteria (Negative) Urine Yeast (None Prsent) Salicylates (2.8-20) mg/dl Urine Opiates Screen (Neg) Ur Methadone, Qual (Neg) Acetaminophen (10-30) ug/ml Urine Barbiturates (Neg) Ur Phencyclidine (PCP) (Neg) U Amphetamin/Meth Scrn (Neg) MDMA (Ecstasy) Screen (Neg) U Benzodiazepines Scrn (Neg) Ur Cocaine Metabolite (Neg) U Marijuana (THC) Screen (Neg) Ethyl Alcohol mg/dL (0-3) mg/dl Influenza Type A Ag (Neg) Influenza Type B Ag (Neg) 05/15/18 05/15/18 05/15/18 Range/Units 09:49 12:00 12:10 WBC (4.8-10.8) K/uL RBC (4.2-5.4) M/uL Hgb (12.0-16.0) g/dL Hct (37-47) % MCV (80-100) fL MCH (25-34) pg MCHC (32-36) g/dL RDW Std Deviation (36.4-46.3) fL RDW Coeff of Emil (11.5-14.5) % Plt Count (130-400) K/uL MPV (7.4-10.4) fL Immature Gran % (Auto) % Neut % (Auto) % Lymph % (Auto) % [place] % (Auto) % Eos % (Auto) % Baso % (Auto) % Immature Gran # (Auto) (0.00-0.02) K/uL Neut # (Auto) (1.4-6.5) K/uL Lymph # (Auto) (1.2-3.4) K/uL [place] # (Auto) (0.11-0.59) K/uL Eos # (Auto) (0-0.5) K/uL Baso # (Auto) (0-0.2) K/uL Sodium (136-145) mmol/L Potassium (3.5-5.1) mmol/L Chloride (98-107) mmol/L Carbon Dioxide (21-32) mmol/L Anion Gap (3-11) BUN (7-18) mg/dl Creatinine (0.6-1.2) mg/dl Est Cr Clr Drug Dosing ml/min Est GFR ( Amer) Est GFR (Non-Af Amer) BUN/Creatinine Ratio (10-20) Glucose (70-99) mg/dl POC Glucose 411 H* 317 H (70-99) Estimat Average Glucose mg/dl Hemoglobin A1c (4.5-5.6) % Calcium (8.5-10.1) mg/dl Magnesium (1.8-2.4) mg/dl Total Bilirubin (0.2-1) mg/dl AST (15-37) U/L ALT (12-78) U/L Alkaline Phosphatase (45-117) U/L Total Protein (6.4-8.2) gm/dl Albumin (3.4-5.0) gm/dl Globulin (2.5-4.0) gm/dl Albumin/Globulin Ratio (0.9-2) Beta-Hydroxybutyric Acd (0.2-2.81) mg/dl TSH 0.475 (0.300-4.500) uIu/ml Urine Color Urine Appearance (Clear) Urine pH (4.5-7.5) Ur Specific [place] (1.000-1.030) Urine Protein (Negative) Urine Glucose (UA) (Negative) Urine Ketones (Negative) Urine Blood (Negative) Urine Nitrite (Negative) Urine Bilirubin (Negative) Urine Urobilinogen (Negative) Ur Leukocyte Esterase (Negative) Urine RBC (0-4) /hpf Urine WBC (0-5) /hpf Ur Epithelial Cells (0-5) /lpf Urine Bacteria (Negative) Urine Yeast (None Prsent) Salicylates (2.8-20) mg/dl Urine Opiates Screen (Neg) Ur Methadone, Qual (Neg) Acetaminophen (10-30) ug/ml Urine Barbiturates (Neg) Ur Phencyclidine (PCP) (Neg) U Amphetamin/Meth Scrn (Neg) MDMA (Ecstasy) Screen (Neg) U Benzodiazepines Scrn (Neg) Ur Cocaine Metabolite (Neg) U Marijuana (THC) Screen (Neg) Ethyl Alcohol mg/dL (0-3) mg/dl Influenza Type A Ag (Neg) Influenza Type B Ag (Neg) 05/15/18 05/15/18 05/15/18 Range/Units 17:02 20:32 20:36 WBC (4.8-10.8) K/uL RBC (4.2-5.4) M/uL Hgb (12.0-16.0) g/dL Hct (37-47) % MCV (80-100) fL MCH (25-34) pg MCHC (32-36) g/dL RDW Std Deviation (36.4-46.3) fL RDW Coeff of Emil (11.5-14.5) % Plt Count (130-400) K/uL MPV (7.4-10.4) fL Immature Gran % (Auto) % Neut % (Auto) % Lymph % (Auto) % [place] % (Auto) % Eos % (Auto) % Baso % (Auto) % Immature Gran # (Auto) (0.00-0.02) K/uL Neut # (Auto) (1.4-6.5) K/uL Lymph # (Auto) (1.2-3.4) K/uL [place] # (Auto) (0.11-0.59) K/uL Eos # (Auto) (0-0.5) K/uL Baso # (Auto) (0-0.2) K/uL Sodium (136-145) mmol/L Potassium (3.5-5.1) mmol/L Chloride (98-107) mmol/L Carbon Dioxide (21-32) mmol/L Anion Gap (3-11) BUN (7-18) mg/dl Creatinine (0.6-1.2) mg/dl Est Cr Clr Drug Dosing ml/min Est GFR ( Amer) Est GFR (Non-Af Amer) BUN/Creatinine Ratio (10-20) Glucose (70-99) mg/dl POC Glucose 244 H 367 H* 412 H* (70-99) Estimat Average Glucose mg/dl Hemoglobin A1c (4.5-5.6) % Calcium (8.5-10.1) mg/dl Magnesium (1.8-2.4) mg/dl Total Bilirubin (0.2-1) mg/dl AST (15-37) U/L ALT (12-78) U/L Alkaline Phosphatase (45-117) U/L Total Protein (6.4-8.2) gm/dl Albumin (3.4-5.0) gm/dl Globulin (2.5-4.0) gm/dl Albumin/Globulin Ratio (0.9-2) Beta-Hydroxybutyric Acd (0.2-2.81) mg/dl TSH (0.300-4.500) uIu/ml Urine Color Urine Appearance (Clear) Urine pH (4.5-7.5) Ur Specific [place] (1.000-1.030) Urine Protein (Negative) Urine Glucose (UA) (Negative) Urine Ketones (Negative) Urine Blood (Negative) Urine Nitrite (Negative) Urine Bilirubin (Negative) Urine Urobilinogen (Negative) Ur Leukocyte Esterase (Negative) Urine RBC (0-4) /hpf Urine WBC (0-5) /hpf Ur Epithelial Cells (0-5) /lpf Urine Bacteria (Negative) Urine Yeast (None Prsent) Salicylates (2.8-20) mg/dl Urine Opiates Screen (Neg) Ur Methadone, Qual (Neg) Acetaminophen (10-30) ug/ml Urine Barbiturates (Neg) Ur Phencyclidine (PCP) (Neg) U Amphetamin/Meth Scrn (Neg) MDMA (Ecstasy) Screen (Neg) U Benzodiazepines Scrn (Neg) Ur Cocaine Metabolite (Neg) U Marijuana (THC) Screen (Neg) Ethyl Alcohol mg/dL (0-3) mg/dl Influenza Type A Ag (Neg) Influenza Type B Ag (Neg) 05/15/18 05/16/18 05/16/18 Range/Units 21:18 00:00 08:10 WBC (4.8-10.8) K/uL RBC (4.2-5.4) M/uL Hgb (12.0-16.0) g/dL Hct (37-47) % MCV (80-100) fL MCH (25-34) pg MCHC (32-36) g/dL RDW Std Deviation (36.4-46.3) fL RDW Coeff of Emil (11.5-14.5) % Plt Count (130-400) K/uL MPV (7.4-10.4) fL Immature Gran % (Auto) % Neut % (Auto) % Lymph % (Auto) % [place] % (Auto) % Eos % (Auto) % Baso % (Auto) % Immature Gran # (Auto) (0.00-0.02) K/uL Neut # (Auto) (1.4-6.5) K/uL Lymph # (Auto) (1.2-3.4) K/uL [place] # (Auto) (0.11-0.59) K/uL Eos # (Auto) (0-0.5) K/uL Baso # (Auto) (0-0.2) K/uL Sodium (136-145) mmol/L Potassium (3.5-5.1) mmol/L Chloride (98-107) mmol/L Carbon Dioxide (21-32) mmol/L Anion Gap (3-11) BUN (7-18) mg/dl Creatinine (0.6-1.2) mg/dl Est Cr Clr Drug Dosing ml/min Est GFR ( Amer) Est GFR (Non-Af Amer) BUN/Creatinine Ratio (10-20) Glucose (70-99) mg/dl POC Glucose 382 H* 204 H 225 H (70-99) Estimat Average Glucose mg/dl Hemoglobin A1c (4.5-5.6) % Calcium (8.5-10.1) mg/dl Magnesium (1.8-2.4) mg/dl Total Bilirubin (0.2-1) mg/dl AST (15-37) U/L ALT (12-78) U/L Alkaline Phosphatase (45-117) U/L Total Protein (6.4-8.2) gm/dl Albumin (3.4-5.0) gm/dl Globulin (2.5-4.0) gm/dl Albumin/Globulin Ratio (0.9-2) Beta-Hydroxybutyric Acd (0.2-2.81) mg/dl TSH (0.300-4.500) uIu/ml Urine Color Urine Appearance (Clear) Urine pH (4.5-7.5) Ur Specific [place] (1.000-1.030) Urine Protein (Negative) Urine Glucose (UA) (Negative) Urine Ketones (Negative) Urine Blood (Negative) Urine Nitrite (Negative) Urine Bilirubin (Negative) Urine Urobilinogen (Negative) Ur Leukocyte Esterase (Negative) Urine RBC (0-4) /hpf Urine WBC (0-5) /hpf Ur Epithelial Cells (0-5) /lpf Urine Bacteria (Negative) Urine Yeast (None Prsent) Salicylates (2.8-20) mg/dl Urine Opiates Screen (Neg) Ur Methadone, Qual (Neg) Acetaminophen (10-30) ug/ml Urine Barbiturates (Neg) Ur Phencyclidine (PCP) (Neg) U Amphetamin/Meth Scrn (Neg) MDMA (Ecstasy) Screen (Neg) U Benzodiazepines Scrn (Neg) Ur Cocaine Metabolite (Neg) U Marijuana (THC) Screen (Neg) Ethyl Alcohol mg/dL (0-3) mg/dl Influenza Type A Ag (Neg) Influenza Type B Ag (Neg) 05/16/18 05/16/18 05/16/18 Range/Units 12:33 17:00 18:45 WBC (4.8-10.8) K/uL RBC (4.2-5.4) M/uL Hgb (12.0-16.0) g/dL Hct (37-47) % MCV (80-100) fL MCH (25-34) pg MCHC (32-36) g/dL RDW Std Deviation (36.4-46.3) fL RDW Coeff of Emil (11.5-14.5) % Plt Count (130-400) K/uL MPV (7.4-10.4) fL Immature Gran % (Auto) % Neut % (Auto) % Lymph % (Auto) % [place] % (Auto) % Eos % (Auto) % Baso % (Auto) % Immature Gran # (Auto) (0.00-0.02) K/uL Neut # (Auto) (1.4-6.5) K/uL Lymph # (Auto) (1.2-3.4) K/uL [place] # (Auto) (0.11-0.59) K/uL Eos # (Auto) (0-0.5) K/uL Baso # (Auto) (0-0.2) K/uL Sodium 132 L D (136-145) mmol/L Potassium 4.9 D (3.5-5.1) mmol/L Chloride 98 (98-107) mmol/L Carbon Dioxide 27 (21-32) mmol/L Anion Gap 7.0 (3-11) BUN 35 H D (7-18) mg/dl Creatinine 1.40 H D (0.6-1.2) mg/dl Est Cr Clr Drug Dosing 33.0 ml/min Est GFR ( Amer) 44.6 Est GFR (Non-Af Amer) 38.5 BUN/Creatinine Ratio 25.3 H (10-20) Glucose 327 H (70-99) mg/dl POC Glucose 244 H 181 H (70-99) Estimat Average Glucose mg/dl Hemoglobin A1c (4.5-5.6) % Calcium 9.6 (8.5-10.1) mg/dl Magnesium 1.7 L (1.8-2.4) mg/dl Total Bilirubin (0.2-1) mg/dl AST (15-37) U/L ALT (12-78) U/L Alkaline Phosphatase (45-117) U/L Total Protein (6.4-8.2) gm/dl Albumin (3.4-5.0) gm/dl Globulin (2.5-4.0) gm/dl Albumin/Globulin Ratio (0.9-2) Beta-Hydroxybutyric Acd 2.55 (0.2-2.81) mg/dl TSH (0.300-4.500) uIu/ml Urine Color Urine Appearance (Clear) Urine pH (4.5-7.5) Ur Specific [place] (1.000-1.030) Urine Protein (Negative) Urine Glucose (UA) (Negative) Urine Ketones (Negative) Urine Blood (Negative) Urine Nitrite (Negative) Urine Bilirubin (Negative) Urine Urobilinogen (Negative) Ur Leukocyte Esterase (Negative) Urine RBC (0-4) /hpf Urine WBC (0-5) /hpf Ur Epithelial Cells (0-5) /lpf Urine Bacteria (Negative) Urine Yeast (None Prsent) Salicylates (2.8-20) mg/dl Urine Opiates Screen (Neg) Ur Methadone, Qual (Neg) Acetaminophen (10-30) ug/ml Urine Barbiturates (Neg) Ur Phencyclidine (PCP) (Neg) U Amphetamin/Meth Scrn (Neg) MDMA (Ecstasy) Screen (Neg) U Benzodiazepines Scrn (Neg) Ur Cocaine Metabolite (Neg) U Marijuana (THC) Screen (Neg) Ethyl Alcohol mg/dL (0-3) mg/dl Influenza Type A Ag (Neg) Influenza Type B Ag (Neg) Imaging Data Attestation: I personally reviewed and interpreted this imaging study as follows : Radiologist's Impression: XR chest 1V portable CLINICAL HISTORY: Cough. COMPARISON STUDY: Chest radiograph October 23, 2017. FINDINGS: Lung volumes are at the lower limits of normal. There is no consolidation or evidence for pulmonary edema. Cardiac size is normal. Mediastinal contours are normal. Appearance of the chest is unchanged. IMPRESSION: No acute cardiopulmonary findings. Electronically signed by: Walt Zuniga M.D. 05/14/2018 1:06 PM Blood Pressure Blood Pressure Findings: Elevated blood pressure Blood Pressure Disposition: Referred to patients primary care provider MDM Narrative This is a 67-year-old female who presents emergency department complaining of concerned that she is going to hurt herself. The patient reports she has not been taking care of herself and has not been taking her home medications including her blood pressure medication or her insulin. The patient is upset about her daughter committing suicide and her daughter's birthday coming up. Her blood sugar was found to be grossly elevated however she is not in DKA. Over the course of the next 8 hours I slowly lowered the patient's blood sugar. She received 3 boluses of insulin including 30 units prior to eating. She was also given 2 L of fluid here in the emergency department and started on Rocephin for what appears to be a UTI. In addition to all this patient was given her hydrochlorothiazide medication as well as her lisinopril which she has not been taking for home. Repeat examinations revealed improvement in the patient's vital signs as well as the patient's sugar. The patient was discussed with psychiatric liaison who asked that a repeat renal profile be obtained. I will note that the patient's sodium is 132 however it is artificially depressed due to the patient's hyperglycemia. Her potassium was repleted here in the emergency department. She was signed out to Dr. Jalil Ackerman the change of shift pending psychiatric consult. Impression & Plan Acute hyperglycemia, Hypertension, Acute UTI Discharge Plan Visit Data *Final* Discharge Date/Time: 05/15/18 03:08 Chief Complaint: Flu Like Symptoms Stated Complaint: FLU, DIABETES ED Provider: Blair Roche Discharge Problem: Acute hyperglycemia, Hypertension, Acute UTI Patient Disposition: Home - Self-Care Discharge Instructions Interventions: ED Discharge Assessment Last Done: 05/15/18 03:08 The scribe's documentation has been prepared under my direction and personally reviewed by me in its entirety. I confirm that the note above accurately reflects all work, treatment, procedures, and medical decision making performed by me.
[2018-05-14 21:19] LABS: BUN Creatinine Ratio 15.6 (10-20); Calcium 8.8 mg/dl (8.5-10.1); Est GFR (African American) 73.2; Est GFR (Non-African American) 63.1
[2018-05-14 21:20] LABS: Potassium 2.7 mmol/L (3.5-5.1)
[2018-05-14] MEDS ORDERED: ONDANSETRON INJ 2 MG/ML 2 ML VIAL IV STA (21:22)
[2018-05-14] MEDS ORDERED: POTASSIUM CHLORIDE 20 MEQ TABCR PO STA (21:22)
[2018-05-14] MEDS: POTASSIUM CHLORIDE / WTR 10 MEQ/100 ML PLCT IV SCH ×2 (21:41→21:46)
[2018-05-15] MEDS ORDERED: SODIUM CHLORIDE 0.65% NA SOLN 45 ML (OCEAN) PRN (03:32)
[2018-05-15] MEDS ORDERED: BISMUTH SUBSALICYLATE PER ML OMNICELL CHARGE PO PRN (03:32)
[2018-05-15] MEDS ORDERED: MAGNESIUM HYDROXIDE SUSP 30 ML UDC PO PRN (03:32)
[2018-05-15] MEDS ORDERED: ALUMINUM/MAGNESIUM SUSP 30 ML UDC PO PRN (03:32)
[2018-05-15] MEDS: ACETAMINOPHEN 325 MG TAB PO PRN ×2 (03:45→08:27)
[2018-05-15 06:31] LABS: Estimated Average Glucose 395 mg/dl
--- NOTE | 2018-05-15 08:06 | History & Physical ---
Date of Service May 15, 2018 Impression / Recommendations Protective Factors Assessment Employed: No Psychiatric History Identifying Data CRISS LEGGETT is a 67-year-old F who currently lives in [] [alone] with [], has a history of [], and was admitted on 05/15/18 02:36 on a [201 voluntary] [ 302 involuntary] commitment for []. Chief Complaint "[]". Past Psychiatric History Current Psychiatric Diagnosis: Depression Allergies Allergy/AdvReac Type Severity Reaction Status Date / Time No Known Allergies Allergy Unverified 05/14/18 13:50 Home Medications Home Medications Medication Instructions Recorded Confirmed Type acetaminophen [Tylenol Extra 1,000 mg PO Q6H PRN 03/17/18 05/14/18 History Strength] aspirin 81 mg PO QAM 03/17/18 05/14/18 History atorvastatin 40 mg PO QAM 03/17/18 05/14/18 History hydrochlorothiazide 12.5 mg PO QAM 03/17/18 05/14/18 History insulin lispro protamin-lispro 30 unit SUBCUT QDD 03/17/18 05/14/18 History [Humalog Mix 75-25 KwikPen] insulin lispro protamin-lispro 45 unit SUBCUT QDB 03/17/18 05/14/18 History [Humalog Mix 75-25 KwikPen] lisinopril 10 mg PO QAM 03/17/18 05/14/18 History methimazole 10 mg PO QAM 03/17/18 05/14/18 History pantoprazole 40 mg PO QAM 03/17/18 05/14/18 History venlafaxine 75 mg PO QAM 03/17/18 05/14/18 History Family History Family History of: Suicide Attempts Family Mental Health History Comment: 3 cousins completed suicide Alcohol History Hx of Alcohol Use Over the Past 12 Months: No AUDIT Total Score: 0 Smoking Use Have You Smoked or Used Tobacco Products in the Last 30 Days: No Smoking Status: Never smoker Substance History Hx of Prescription Med Misuse Over the Past 12 Months: No Hx of Over the Counter Med Misuse Over the Past 12 Months: No Hx of Inhalent Misuse Over the Past 12 Months: No Hx of Organic Substance Use Over the Past 12 Months: No Hx of Illegal Substances/Street Drug Use Over Past 12 Months: No Problems as a Result of Past Substance Use: None Identified Personal History Living Arrangements: Home Beliefs That Will Affect Care: None Patient History Medical History Diabetes mellitus type 2, uncontrolled (Resolved) Pre-syncope (Resolved) Hypothyroidism Dyslipidemia HNP (herniated nucleus pulposus), lumbar Hyperthyroidism Hypertension Type II diabetes mellitus (Chronic) Major depressive disorder, recurrent severe without psychotic features (Acute) Hyperglycemia (Inactive) Sinusitis (Inactive) Depression Diabetes HLD (hyperlipidemia) HTN (hypertension) Hyperthyroidism Social History Feels Safe at Home: Yes Smoking Status: Never smoker Beliefs That Will Affect Care: None Preferred Language: Tajik Communication Ability: Effective Sausage Linker Required: No Physical Exam Vital Signs (Past 24 Hours) Last Vital Signs Temp 36.7 C 05/15/18 06:58 Pulse 118 H 05/15/18 06:59 Resp 16 05/15/18 06:58 BP 156/105 H 05/15/18 06:59 Pulse Ox 99 05/15/18 02:25 Results & Data Laboratory Results Laboratory Results - last 24 hr 05/14/18 05/14/18 05/14/18 11:45 12:48 12:48 WBC 7.95 RBC 4.64 Hgb 14.6 Hct 41.9 MCV 90.3 MCH 31.5 MCHC 34.8 RDW Std Deviation 40.8 RDW Coeff of Emil 12.3 Plt Count 301 MPV 10.7 H Immature Gran % (Auto) 0.1 Neut % (Auto) 65.3 Lymph % (Auto) 26.7 Marion % (Auto) 6.7 Eos % (Auto) 0.6 Baso % (Auto) 0.6 Immature Gran # (Auto) 0.01 Neut # (Auto) 5.19 Lymph # (Auto) 2.12 Marion # (Auto) 0.53 Eos # (Auto) 0.05 Baso # (Auto) 0.05 Sodium 132 L Potassium 4.8 Chloride 99 Carbon Dioxide 26 Anion Gap 7.0 BUN 14 Creatinine 0.90 Est Cr Clr Drug Dosing 50.7 Est GFR ( Amer) 76.1 Est GFR (Non-Af Amer) 65.7 BUN/Creatinine Ratio 16.0 Glucose 457 H* POC Glucose 390 H* Estimat Average Glucose Hemoglobin A1c Calcium 8.9 Total Bilirubin 0.4 AST 7 L ALT 14 Alkaline Phosphatase 108 Total Protein 7.9 Albumin 3.2 L Globulin 4.7 H Albumin/Globulin Ratio 0.7 L Beta-Hydroxybutyric Acd 21.61 H TSH 0.562 Urine Color Urine Appearance Urine pH Ur Specific [place] Urine Protein Urine Glucose (UA) Urine Ketones Urine Blood Urine Nitrite Urine Bilirubin Urine Urobilinogen Ur Leukocyte Esterase Urine RBC Urine WBC Ur Epithelial Cells Urine Bacteria Urine Yeast Salicylates Urine Opiates Screen Ur Methadone, Qual Acetaminophen Urine Barbiturates Ur Phencyclidine (PCP) U Amphetamin/Meth Scrn MDMA (Ecstasy) Screen U Benzodiazepines Scrn Ur Cocaine Metabolite U Marijuana (THC) Screen Ethyl Alcohol mg/dL Influenza Type A Ag Influenza Type B Ag 05/14/18 05/14/18 05/14/18 12:48 12:48 12:48 WBC RBC Hgb Hct MCV MCH MCHC RDW Std Deviation RDW Coeff of Emil Plt Count MPV Immature Gran % (Auto) Neut % (Auto) Lymph % (Auto) Marion % (Auto) Eos % (Auto) Baso % (Auto) Immature Gran # (Auto) Neut # (Auto) Lymph # (Auto) Marion # (Auto) Eos # (Auto) Baso # (Auto) Sodium Potassium Chloride Carbon Dioxide Anion Gap BUN Creatinine Est Cr Clr Drug Dosing Est GFR ( Amer) Est GFR (Non-Af Amer) BUN/Creatinine Ratio Glucose POC Glucose Estimat Average Glucose 395 Hemoglobin A1c 15.4 H Calcium Total Bilirubin AST ALT Alkaline Phosphatase Total Protein Albumin Globulin Albumin/Globulin Ratio Beta-Hydroxybutyric Acd TSH Urine Color Urine Appearance Urine pH Ur Specific [place] Urine Protein Urine Glucose (UA) Urine Ketones Urine Blood Urine Nitrite Urine Bilirubin Urine Urobilinogen Ur Leukocyte Esterase Urine RBC Urine WBC Ur Epithelial Cells Urine Bacteria Urine Yeast Salicylates < 1.7 L Urine Opiates Screen Ur Methadone, Qual Acetaminophen 14 Urine Barbiturates Ur Phencyclidine (PCP) U Amphetamin/Meth Scrn MDMA (Ecstasy) Screen U Benzodiazepines Scrn Ur Cocaine Metabolite U Marijuana (THC) Screen Ethyl Alcohol mg/dL < 3.0 Influenza Type A Ag Influenza Type B Ag 05/14/18 05/14/18 05/14/18 12:56 13:30 13:30 WBC RBC Hgb Hct MCV MCH MCHC RDW Std Deviation RDW Coeff of Emil Plt Count MPV Immature Gran % (Auto) Neut % (Auto) Lymph % (Auto) Marion % (Auto) Eos % (Auto) Baso % (Auto) Immature Gran # (Auto) Neut # (Auto) Lymph # (Auto) Marion # (Auto) Eos # (Auto) Baso # (Auto) Sodium Potassium Chloride Carbon Dioxide Anion Gap BUN Creatinine Est Cr Clr Drug Dosing Est GFR ( Amer) Est GFR (Non-Af Amer) BUN/Creatinine Ratio Glucose POC Glucose Estimat Average Glucose Hemoglobin A1c Calcium Total Bilirubin AST ALT Alkaline Phosphatase Total Protein Albumin Globulin Albumin/Globulin Ratio Beta-Hydroxybutyric Acd TSH Urine Color Yellow Urine Appearance Clear Urine pH 5.0 Ur Specific [place] 1.040 H Urine Protein 2+ H Urine Glucose (UA) 3+ H Urine Ketones 2+ H Urine Blood Trace H Urine Nitrite Negative Urine Bilirubin Negative Urine Urobilinogen Negative Ur Leukocyte Esterase Negative Urine RBC 0-4 Urine WBC 5-10 H Ur Epithelial Cells 5-10 H Urine Bacteria 2+ H Urine Yeast Budding H Salicylates Urine Opiates Screen Neg Ur Methadone, Qual Neg Acetaminophen Urine Barbiturates Neg Ur Phencyclidine (PCP) Neg U Amphetamin/Meth Scrn Neg MDMA (Ecstasy) Screen Neg U Benzodiazepines Scrn Neg Ur Cocaine Metabolite Neg U Marijuana (THC) Screen Neg Ethyl Alcohol mg/dL Influenza Type A Ag Neg for Influ A Influenza Type B Ag Neg for Influ B 05/14/18 05/14/18 05/14/18 15:23 15:25 16:08 WBC RBC Hgb Hct MCV MCH MCHC RDW Std Deviation RDW Coeff of Emil Plt Count MPV Immature Gran % (Auto) Neut % (Auto) Lymph % (Auto) Marion % (Auto) Eos % (Auto) Baso % (Auto) Immature Gran # (Auto) Neut # (Auto) Lymph # (Auto) Marion # (Auto) Eos # (Auto) Baso # (Auto) Sodium Potassium Chloride Carbon Dioxide Anion Gap BUN Creatinine Est Cr Clr Drug Dosing Est GFR ( Amer) Est GFR (Non-Af Amer) BUN/Creatinine Ratio Glucose POC Glucose 411 H* 419 H* 458 H* Estimat Average Glucose Hemoglobin A1c Calcium Total Bilirubin AST ALT Alkaline Phosphatase Total Protein Albumin Globulin Albumin/Globulin Ratio Beta-Hydroxybutyric Acd TSH Urine Color Urine Appearance Urine pH Ur Specific [place] Urine Protein Urine Glucose (UA) Urine Ketones Urine Blood Urine Nitrite Urine Bilirubin Urine Urobilinogen Ur Leukocyte Esterase Urine RBC Urine WBC Ur Epithelial Cells Urine Bacteria Urine Yeast Salicylates Urine Opiates Screen Ur Methadone, Qual Acetaminophen Urine Barbiturates Ur Phencyclidine (PCP) U Amphetamin/Meth Scrn MDMA (Ecstasy) Screen U Benzodiazepines Scrn Ur Cocaine Metabolite U Marijuana (THC) Screen Ethyl Alcohol mg/dL Influenza Type A Ag Influenza Type B Ag 05/14/18 05/14/18 05/14/18 16:59 18:06 19:18 WBC RBC Hgb Hct MCV MCH MCHC RDW Std Deviation RDW Coeff of Emil Plt Count MPV Immature Gran % (Auto) Neut % (Auto) Lymph % (Auto) Marion % (Auto) Eos % (Auto) Baso % (Auto) Immature Gran # (Auto) Neut # (Auto) Lymph # (Auto) Marion # (Auto) Eos # (Auto) Baso # (Auto) Sodium Potassium Chloride Carbon Dioxide Anion Gap BUN Creatinine Est Cr Clr Drug Dosing Est GFR ( Amer) Est GFR (Non-Af Amer) BUN/Creatinine Ratio Glucose POC Glucose 346 H 250 H 101 H Estimat Average Glucose Hemoglobin A1c Calcium Total Bilirubin AST ALT Alkaline Phosphatase Total Protein Albumin Globulin Albumin/Globulin Ratio Beta-Hydroxybutyric Acd TSH Urine Color Urine Appearance Urine pH Ur Specific [place] Urine Protein Urine Glucose (UA) Urine Ketones Urine Blood Urine Nitrite Urine Bilirubin Urine Urobilinogen Ur Leukocyte Esterase Urine RBC Urine WBC Ur Epithelial Cells Urine Bacteria Urine Yeast Salicylates Urine Opiates Screen Ur Methadone, Qual Acetaminophen Urine Barbiturates Ur Phencyclidine (PCP) U Amphetamin/Meth Scrn MDMA (Ecstasy) Screen U Benzodiazepines Scrn Ur Cocaine Metabolite U Marijuana (THC) Screen Ethyl Alcohol mg/dL Influenza Type A Ag Influenza Type B Ag 05/14/18 05/14/18 05/14/18 20:04 20:15 21:24 WBC RBC Hgb Hct MCV MCH MCHC RDW Std Deviation RDW Coeff of Emil Plt Count MPV Immature Gran % (Auto) Neut % (Auto) Lymph % (Auto) [place] % (Auto) Eos % (Auto) Baso % (Auto) Immature Gran # (Auto) Neut # (Auto) Lymph # (Auto) [place] # (Auto) Eos # (Auto) Baso # (Auto) Sodium 140 D Potassium 2.7 L D Chloride 108 H Carbon Dioxide 23 Anion Gap 9.0 BUN 15 Creatinine 0.93 Est Cr Clr Drug Dosing 49.0 Est GFR ( Amer) 73.2 Est GFR (Non-Af Amer) 63.1 BUN/Creatinine Ratio 15.6 Glucose 50 L* POC Glucose 70 123 H Estimat Average Glucose Hemoglobin A1c Calcium 8.8 Total Bilirubin AST ALT Alkaline Phosphatase Total Protein Albumin Globulin Albumin/Globulin Ratio Beta-Hydroxybutyric Acd TSH Urine Color Urine Appearance Urine pH Ur Specific [place] Urine Protein Urine Glucose (UA) Urine Ketones Urine Blood Urine Nitrite Urine Bilirubin Urine Urobilinogen Ur Leukocyte Esterase Urine RBC Urine WBC Ur Epithelial Cells Urine Bacteria Urine Yeast Salicylates Urine Opiates Screen Ur Methadone, Qual Acetaminophen Urine Barbiturates Ur Phencyclidine (PCP) U Amphetamin/Meth Scrn MDMA (Ecstasy) Screen U Benzodiazepines Scrn Ur Cocaine Metabolite U Marijuana (THC) Screen Ethyl Alcohol mg/dL Influenza Type A Ag Influenza Type B Ag 05/15/18 05/15/18 00:45 07:34 WBC RBC Hgb Hct MCV MCH MCHC RDW Std Deviation RDW Coeff of Emil Plt Count MPV Immature Gran % (Auto) Neut % (Auto) Lymph % (Auto) [place] % (Auto) Eos % (Auto) Baso % (Auto) Immature Gran # (Auto) Neut # (Auto) Lymph # (Auto) [place] # (Auto) Eos # (Auto) Baso # (Auto) Sodium Potassium Chloride Carbon Dioxide Anion Gap BUN Creatinine Est Cr Clr Drug Dosing Est GFR ( Amer) Est GFR (Non-Af Amer) BUN/Creatinine Ratio Glucose POC Glucose 185 H 324 H Estimat Average Glucose Hemoglobin A1c Calcium Total Bilirubin AST ALT Alkaline Phosphatase Total Protein Albumin Globulin Albumin/Globulin Ratio Beta-Hydroxybutyric Acd TSH Urine Color Urine Appearance Urine pH Ur Specific [place] Urine Protein Urine Glucose (UA) Urine Ketones Urine Blood Urine Nitrite Urine Bilirubin Urine Urobilinogen Ur Leukocyte Esterase Urine RBC Urine WBC Ur Epithelial Cells Urine Bacteria Urine Yeast Salicylates Urine Opiates Screen Ur Methadone, Qual Acetaminophen Urine Barbiturates Ur Phencyclidine (PCP) U Amphetamin/Meth Scrn MDMA (Ecstasy) Screen U Benzodiazepines Scrn Ur Cocaine Metabolite U Marijuana (THC) Screen Ethyl Alcohol mg/dL Influenza Type A Ag Influenza Type B Ag Current Inpatient Medications Current Inpatient Medications: Current Inpatient Medications Acetaminophen (Tylenol) 650 mg PO Q4H PRN PRN Reason: Headache or Minor Fever Stop: 06/14/18 03:31 Last Admin: 05/15/18 03:45 Dose: 650 mg Al Hydrox/Mg Hydrox/Simethicone (Maalox) 30 ml PO Q4H PRN PRN Reason: GI Upset Stop: 06/14/18 03:31 Last Admin: 05/15/18 03:45 Dose: 30 ml Bismuth Subsalicylate (Kaopectate) 15 ml PO PRN PRN PRN Reason: Loose Stool Stop: 06/14/18 03:31 Hydroxyzine HCl (Vistaril) 50 mg PO HSZ PRN PRN Reason: Insomnia Stop: 06/14/18 03:31 Hydroxyzine HCl (Vistaril) 25 mg PO Q4H PRN PRN Reason: Anxiety Stop: 06/14/18 03:31 Last Admin: 05/15/18 03:53 Dose: 25 mg Insulin Lispro Protam/Lispro Human (Humalog Mix 75/25) 45 units SC QDB [facility] Stop: 06/14/18 08:59 Insulin Lispro Protam/Lispro Human (Humalog Mix 75/25) 30 units SQ QDD [facility] [place] Stop: 06/14/18 17:44 Lisinopril (Zestril) 10 mg PO QAM [facility] [place] Stop: 06/13/18 12:44 Last Admin: 05/14/18 15:09 Dose: Not Given Magnesium Hydroxide (Milk Of Magnesia) 30 ml PO DAILY PRN PRN Reason: Heartburn Stop: 06/14/18 03:31 Miscellaneous Information (Consult Glycemic Management Pharmacy) 1 ea N/A NOW STA Stop: 05/15/18 08:00 Sodium Chloride ([place] Nasal) 1 - 2 sprays NA PRN PRN PRN Reason: Nasal Dryness/Congestion Stop: 06/14/18 03:31 Last Admin: 05/15/18 04:44 Dose: 2 sprays CPT Code CPT Code Initial Hospital Care: 25191
[2018-05-15] MEDS ORDERED: PHARMACY GLYCEMIC MGMT CONSULT PRN (08:11)
[2018-05-15] MEDS ORDERED: INSULIN GLARGINE SOLOSTAR 100 UNITS/ML 3 ML PEN SC STA (08:38)
[2018-05-15] MEDS ORDERED: INSULIN LISPRO 75%/25% SC SCH (09:00)
[2018-05-15] MEDS: INSULIN ASPART 100 UNITS/ML 3 ML PEN SC SCH ×4 (09:52→21:23)
--- NOTE | 2018-05-15 11:04 | History & Physical ---
Date of Service May 15, 2018 Impression / Recommendations Impression 67-year-old woman known to our mental health unit from a hospitalization for depression in October 2017, re-presents to the emergency room for similar complaints. She admits to being severely depressed but not suicidal, triggered by the birthday anniversary of her daughter Tonya. The patient has not been taking her medications for months now and she is hyperglycemic and hypertensive. We have obtained her most recent list of medications from her outpatient provider and will correct the medication reconciliation list and we will consult medicine to help us as she is in significant pain today. We have consulted the glycemic pharmacist to help us manage her insulin while here as well. We will need to explore the barriers to her following up with psychiatry as an outpatient as she stopped seeing her psychiatric provider shortly after discharge. We will need to get some supplemental information from her as well. At this point, the patient requires inpatient mental health treatment due to the severity of her condition and the risk for self-harm secondary to neglect of her medications. (1) Major depressive disorder, recurrent severe without psychotic features: 05/15 - Restart Effexor XR 75 mg daily titrating as tolerated - Supplemental information from - Explore barriers to accepting psychiatric follow up - Q 15 min checks for safety - Encourage participation in group and individual therapy - Explore healthy coping strategies - Family meeting if indicated. - Safety planning - Aftercare planning Present on Admission?: Yes (2) Diabetes mellitus type 2, uncontrolled: 05/15 - Consult diabetic pharmacist to help manage diabetes - Will consult [facility] to assist with all of medical conditions - BSG's AC/HS Present on Admission?: Yes (3) Hypertension: 05/15 - Clarify meds with Dr. Batista's office - Will consult [facility] to assist with all medical problems - [place] BP Hypertension type: unspecified Qualified Code(s): I10 - Essential (primary) hypertension Present on Admission?: Yes (4) Hyperthyroidism: 05/15 - TSH - Consult [facility] to assist with all medical problems Present on Admission?: Yes (5) HNP (herniated nucleus pulposus), lumbar: 05/15 - Will order 3 days of naproxen 375 mg BID to reduce inflamation - Had been using Tramadol as an OP. - Will consult [facility] to assist with all medical problems. Present on Admission?: Yes Inventory Assets Strengths: Lives with who is supportive, willingness to engage in treatment Needs: Consistent follow-through with aftercare appointments Risk Factors Assessment Male: No : Yes Do You Have Access To A Gun?: No Health Problems: Yes Mental Health Diagnoses: Yes Substance Use Disorders: No Previous Attempt: No Family History of Suicide: Yes Previous Psychiatric Hospitalization: Yes Hopelessness: No Smoker: No Protective Factors Assessment Pent[employer]ism Beliefs: Yes : Yes Responsible for Young Children: No Employed: No Stable Relationships: Yes Supportive Family: Yes Psychiatric History Identifying Data ELIDA LEGGETT is a 67-year-old F who presented to our emergency department yesterday with complaints of severe depression in the setting of the loss of a daughter several years ago. The patient is admitted voluntarily. Information is gathered from the patient and considered to be reliable. Chief Complaint "My moods been up and down.". History of Present Illness Elida is a 67-year-old woman with medical conditions including diabetes, hypertension, hyperthyroidism, dyslipidemia and history of a ruptured disc, who was also hospitalized on our mental health unit in October 2017 for depression. She was stabilized on Effexor, and discharged to the outpatient care of Nelida BARON. Apparently she only saw Nelida once in November of last year and did not return for follow-up visits. She indicates today that her moods have been up and down but more recently have been in decline as the anniversary of her daughter Tonya's in 1994 approaches. Her daughter's birthday was May 13 and she says that she had a "rough day" that day and recognize that she needed to get some help. She also admits that for the last several months at least, she has not been taking her medications saying "I get disgusted with myself and I do not care if I take them or not". She indicates that she was taking her insulin but her hemoglobin A1c is over 15. She denies other stressors at this time and is willing to engage in treatment. The patient says that her mood is depressed but not to the point of having suicidal thinking. Her appetite is "not good" and she has lost weight saying that she is in the 150s and she has not been this low for years. Her energy is "terrible" and most times does not get out of the house to do much. Her anxiety is "terrible" but denies any panic attacks. Her sleep is restless and she frequently will wake up and ask her who she was fighting with last night as the covers are in disarray or on the floor. She denies nightmares. She denies having any auditory or visual hallucinations. She does not engage in self-injurious behaviors. There is no evidence of symptoms that would be congruent with a bipolar disorder. Past Psychiatric History Previous Psych History: None prior to hospitalization in October 2017 Current Psychiatric Diagnosis: Depression Outpatient Services: Has not been back to see her outpatient provider since November 2017 Previous Psych Admissions: [facility] October 2017 Do You Have Access To A Gun?: No History of Previous Suicide Attempt: No Past Medication Trials: None Allergies Allergy/AdvReac Type Severity Reaction Status Date / Time No Known Allergies Allergy Unverified 05/14/18 13:50 Home Medications Home Medications Medication Instructions Recorded Confirmed Type acetaminophen [Tylenol Extra 1,000 mg PO Q6H PRN 03/17/18 05/14/18 History Strength] aspirin 81 mg PO QAM 03/17/18 05/14/18 History atorvastatin 40 mg PO QAM 03/17/18 05/14/18 History hydrochlorothiazide 12.5 mg PO QAM 03/17/18 05/14/18 History insulin lispro protamin-lispro 30 unit SUBCUT QDD 03/17/18 05/14/18 History [Humalog Mix 75-25 KwikPen] insulin lispro protamin-lispro 45 unit SUBCUT QDB 03/17/18 05/14/18 History [Humalog Mix 75-25 KwikPen] lisinopril 10 mg PO QAM 03/17/18 05/14/18 History methimazole 10 mg PO QAM 03/17/18 05/14/18 History pantoprazole 40 mg PO QAM 03/17/18 05/14/18 History venlafaxine 75 mg PO QAM 03/17/18 05/14/18 History doxylamine succinate 25 mg PO HS PRN 05/15/18 05/15/18 History empagliflozin [Jardiance] 25 mg PO DAILY 05/15/18 05/15/18 History multivitamin 1 tab PO DAILY 05/15/18 05/15/18 History tramadol 50 mg PO Q8H PRN 02/07/19 02/07/19 History Family History Family History of: Alcoholism/Drug Abuse and Suicide Attempts Family Mental Health History Comment: 3 cousins completed suicide Alcohol History Hx of Alcohol Use Over the Past 12 Months: No AUDIT Total Score: 0 Smoking Use Have You Smoked or Used Tobacco Products in the Last 30 Days: No Smoking Status: Never smoker Substance History Hx of Prescription Med Misuse Over the Past 12 Months: No Hx of Over the Counter Med Misuse Over the Past 12 Months: No Hx of Inhalent Misuse Over the Past 12 Months: No Hx of Organic Substance Use Over the Past 12 Months: No Hx of Illegal Substances/Street Drug Use Over Past 12 Months: No Problems as a Result of Past Substance Use: None Identified Personal History Living Arrangements: Home Childhood: Raised by both parents. Mother in 2016. She has 1 brother and one living sister. Highest Grade Completed: High School Graduate Employment Status: Disabled Marital Status: Number Of Children: 2, one is Beliefs That Will Affect Care: None Current Legal Problems: No Hx Legal Problems: No Hx Traumatic Life Events: Yes Psychological Trauma History Comment: Loss of daughter in 1994 to a blood clot Patient History Medical History Diabetes mellitus type 2, uncontrolled (Resolved) Pre-syncope (Resolved) Hypothyroidism Dyslipidemia HNP (herniated nucleus pulposus), lumbar Hyperthyroidism Hypertension Type II diabetes mellitus (Chronic) Major depressive disorder, recurrent severe without psychotic features (Acute) Hyperglycemia (Inactive) Sinusitis (Inactive) Depression Diabetes HLD (hyperlipidemia) HTN (hypertension) Hyperthyroidism Social History Feels Safe at Home: Yes Smoking Status: Never smoker Beliefs That Will Affect Care: None Preferred Language: [place]olan Communication Ability: Effective Curriculum Coordinator Required: No Review of Systems All systems reviewed & are unremarkable except as noted in HPI & below Eyes: + problem reported (Cataracts bilaterally) Respiratory: + problem reported (Nasal congestion) Musculoskeletal: + radicular pain (From left buttocks down lateral aspect of left thigh to the knee rated 9 out of 10) Physical Exam Mental Examination Exam performed by Dr. Roche in the emergency department has been reviewed and accepted as medical clearance for our unit Psychiatric Orientation: alert, oriented x 3 and cooperative Apperance: appropriately dressed and appropriately groomed Eye Contact: good eye contact Slowed gait due to back and leg pain. Mild upper extremity tremors Speech: normal rate/rhythm/volume of speech Affect: + depressed affect and + flat affect Mood: + depressed mood Thought Process: goal directed thought process Thought Content: reality based without delusions Suicidal Thoughts: denies suicidal thoughts Homicidal Thoughts: denies homicidal thoughts Hallucinations: no auditory hallucinations and no visual hallucinations Cognition: recent memory grossly intact, remote memory grossly intact, attention grossly intact and language grossly intact Estimated Intelligence: average estimated intelligence Insight: + limited insight Judgement: + limited judgement Vital Signs (Past 24 Hours) Last Vital Signs Temp 36.7 C 05/15/18 06:58 Pulse 118 H 05/15/18 06:59 Resp 16 05/15/18 06:58 BP 156/105 H 05/15/18 06:59 Pulse Ox 99 05/15/18 02:25 Results & Data Laboratory Results Laboratory Results - last 24 hr 05/14/18 05/14/18 05/14/18 11:45 12:48 12:48 WBC 7.95 RBC 4.64 Hgb 14.6 Hct 41.9 MCV 90.3 MCH 31.5 MCHC 34.8 RDW Std Deviation 40.8 RDW Coeff of Emil 12.3 Plt Count 301 MPV 10.7 H Immature Gran % (Auto) 0.1 Neut % (Auto) 65.3 Lymph % (Auto) 26.7 [place] % (Auto) 6.7 Eos % (Auto) 0.6 Baso % (Auto) 0.6 Immature Gran # (Auto) 0.01 Neut # (Auto) 5.19 Lymph # (Auto) 2.12 [place] # (Auto) 0.53 Eos # (Auto) 0.05 Baso # (Auto) 0.05 Sodium 132 L Potassium 4.8 Chloride 99 Carbon Dioxide 26 Anion Gap 7.0 BUN 14 Creatinine 0.90 Est Cr Clr Drug Dosing 50.7 Est GFR ( Amer) 76.1 Est GFR (Non-Af Amer) 65.7 BUN/Creatinine Ratio 16.0 Glucose 457 H* POC Glucose 390 H* Estimat Average Glucose Hemoglobin A1c Calcium 8.9 Total Bilirubin 0.4 AST 7 L ALT 14 Alkaline Phosphatase 108 Total Protein 7.9 Albumin 3.2 L Globulin 4.7 H Albumin/Globulin Ratio 0.7 L Beta-Hydroxybutyric Acd 21.61 H TSH 0.562 Urine Color Urine Appearance Urine pH Ur Specific [place] Urine Protein Urine Glucose (UA) Urine Ketones Urine Blood Urine Nitrite Urine Bilirubin Urine Urobilinogen Ur Leukocyte Esterase Urine RBC Urine WBC Ur Epithelial Cells Urine Bacteria Urine Yeast Salicylates Urine Opiates Screen Ur Methadone, Qual Acetaminophen Urine Barbiturates Ur Phencyclidine (PCP) U Amphetamin/Meth Scrn MDMA (Ecstasy) Screen U Benzodiazepines Scrn Ur Cocaine Metabolite U Marijuana (THC) Screen Ethyl Alcohol mg/dL Influenza Type A Ag Influenza Type B Ag 05/14/18 05/14/18 05/14/18 12:48 12:48 12:48 WBC RBC Hgb Hct MCV MCH MCHC RDW Std Deviation RDW Coeff of Emil Plt Count MPV Immature Gran % (Auto) Neut % (Auto) Lymph % (Auto) [place] % (Auto) Eos % (Auto) Baso % (Auto) Immature Gran # (Auto) Neut # (Auto) Lymph # (Auto) [place] # (Auto) Eos # (Auto) Baso # (Auto) Sodium Potassium Chloride Carbon Dioxide Anion Gap BUN Creatinine Est Cr Clr Drug Dosing Est GFR ( Amer) Est GFR (Non-Af Amer) BUN/Creatinine Ratio Glucose POC Glucose Estimat Average Glucose 395 Hemoglobin A1c 15.4 H Calcium Total Bilirubin AST ALT Alkaline Phosphatase Total Protein Albumin Globulin Albumin/Globulin Ratio Beta-Hydroxybutyric Acd TSH Urine Color Urine Appearance Urine pH Ur Specific [place] Urine Protein Urine Glucose (UA) Urine Ketones Urine Blood Urine Nitrite Urine Bilirubin Urine Urobilinogen Ur Leukocyte Esterase Urine RBC Urine WBC Ur Epithelial Cells Urine Bacteria Urine Yeast Salicylates < 1.7 L Urine Opiates Screen Ur Methadone, Qual Acetaminophen 14 Urine Barbiturates Ur Phencyclidine (PCP) U Amphetamin/Meth Scrn MDMA (Ecstasy) Screen U Benzodiazepines Scrn Ur Cocaine Metabolite U Marijuana (THC) Screen Ethyl Alcohol mg/dL < 3.0 Influenza Type A Ag Influenza Type B Ag 05/14/18 05/14/18 05/14/18 12:56 13:30 13:30 WBC RBC Hgb Hct MCV MCH MCHC RDW Std Deviation RDW Coeff of Emil Plt Count MPV Immature Gran % (Auto) Neut % (Auto) Lymph % (Auto) [place] % (Auto) Eos % (Auto) Baso % (Auto) Immature Gran # (Auto) Neut # (Auto) Lymph # (Auto) [place] # (Auto) Eos # (Auto) Baso # (Auto) Sodium Potassium Chloride Carbon Dioxide Anion Gap BUN Creatinine Est Cr Clr Drug Dosing Est GFR ( Amer) Est GFR (Non-Af Amer) BUN/Creatinine Ratio Glucose POC Glucose Estimat Average Glucose Hemoglobin A1c Calcium Total Bilirubin AST ALT Alkaline Phosphatase Total Protein Albumin Globulin Albumin/Globulin Ratio Beta-Hydroxybutyric Acd TSH Urine Color Yellow Urine Appearance Clear Urine pH 5.0 Ur Specific [place] 1.040 H Urine Protein 2+ H Urine Glucose (UA) 3+ H Urine Ketones 2+ H Urine Blood Trace H Urine Nitrite Negative Urine Bilirubin Negative Urine Urobilinogen Negative Ur Leukocyte Esterase Negative Urine RBC 0-4 Urine WBC 5-10 H Ur Epithelial Cells 5-10 H Urine Bacteria 2+ H Urine Yeast Budding H Salicylates Urine Opiates Screen Neg Ur Methadone, Qual Neg Acetaminophen Urine Barbiturates Neg Ur Phencyclidine (PCP) Neg U Amphetamin/Meth Scrn Neg MDMA (Ecstasy) Screen Neg U Benzodiazepines Scrn Neg Ur Cocaine Metabolite Neg U Marijuana (THC) Screen Neg Ethyl Alcohol mg/dL Influenza Type A Ag Neg for Influ A Influenza Type B Ag Neg for Influ B 05/14/18 05/14/18 05/14/18 15:23 15:25 16:08 WBC RBC Hgb Hct MCV MCH MCHC RDW Std Deviation RDW Coeff of Emil Plt Count MPV Immature Gran % (Auto) Neut % (Auto) Lymph % (Auto) [place] % (Auto) Eos % (Auto) Baso % (Auto) Immature Gran # (Auto) Neut # (Auto) Lymph # (Auto) [place] # (Auto) Eos # (Auto) Baso # (Auto) Sodium Potassium Chloride Carbon Dioxide Anion Gap BUN Creatinine Est Cr Clr Drug Dosing Est GFR ( Amer) Est GFR (Non-Af Amer) BUN/Creatinine Ratio Glucose POC Glucose 411 H* 419 H* 458 H* Estimat Average Glucose Hemoglobin A1c Calcium Total Bilirubin AST ALT Alkaline Phosphatase Total Protein Albumin Globulin Albumin/Globulin Ratio Beta-Hydroxybutyric Acd TSH Urine Color Urine Appearance Urine pH Ur Specific [place] Urine Protein Urine Glucose (UA) Urine Ketones Urine Blood Urine Nitrite Urine Bilirubin Urine Urobilinogen Ur Leukocyte Esterase Urine RBC Urine WBC Ur Epithelial Cells Urine Bacteria Urine Yeast Salicylates Urine Opiates Screen Ur Methadone, Qual Acetaminophen Urine Barbiturates Ur Phencyclidine (PCP) U Amphetamin/Meth Scrn MDMA (Ecstasy) Screen U Benzodiazepines Scrn Ur Cocaine Metabolite U Marijuana (THC) Screen Ethyl Alcohol mg/dL Influenza Type A Ag Influenza Type B Ag 05/14/18 05/14/18 05/14/18 16:59 18:06 19:18 WBC RBC Hgb Hct MCV MCH MCHC RDW Std Deviation RDW Coeff of Emil Plt Count MPV Immature Gran % (Auto) Neut % (Auto) Lymph % (Auto) [place] % (Auto) Eos % (Auto) Baso % (Auto) Immature Gran # (Auto) Neut # (Auto) Lymph # (Auto) [place] # (Auto) Eos # (Auto) Baso # (Auto) Sodium Potassium Chloride Carbon Dioxide Anion Gap BUN Creatinine Est Cr Clr Drug Dosing Est GFR ( Amer) Est GFR (Non-Af Amer) BUN/Creatinine Ratio Glucose POC Glucose 346 H 250 H 101 H Estimat Average Glucose Hemoglobin A1c Calcium Total Bilirubin AST ALT Alkaline Phosphatase Total Protein Albumin Globulin Albumin/Globulin Ratio Beta-Hydroxybutyric Acd TSH Urine Color Urine Appearance Urine pH Ur Specific [place] Urine Protein Urine Glucose (UA) Urine Ketones Urine Blood Urine Nitrite Urine Bilirubin Urine Urobilinogen Ur Leukocyte Esterase Urine RBC Urine WBC Ur Epithelial Cells Urine Bacteria Urine Yeast Salicylates Urine Opiates Screen Ur Methadone, Qual Acetaminophen Urine Barbiturates Ur Phencyclidine (PCP) U Amphetamin/Meth Scrn MDMA (Ecstasy) Screen U Benzodiazepines Scrn Ur Cocaine Metabolite U Marijuana (THC) Screen Ethyl Alcohol mg/dL Influenza Type A Ag Influenza Type B Ag 05/14/18 05/14/18 05/14/18 20:04 20:15 21:24 WBC RBC Hgb Hct MCV MCH MCHC RDW Std Deviation RDW Coeff of Emil Plt Count MPV Immature Gran % (Auto) Neut % (Auto) Lymph % (Auto) [place] % (Auto) Eos % (Auto) Baso % (Auto) Immature Gran # (Auto) Neut # (Auto) Lymph # (Auto) [place] # (Auto) Eos # (Auto) Baso # (Auto) Sodium 140 D Potassium 2.7 L D Chloride 108 H Carbon Dioxide 23 Anion Gap 9.0 BUN 15 Creatinine 0.93 Est Cr Clr Drug Dosing 49.0 Est GFR ( Amer) 73.2 Est GFR (Non-Af Amer) 63.1 BUN/Creatinine Ratio 15.6 Glucose 50 L* POC Glucose 70 123 H Estimat Average Glucose Hemoglobin A1c Calcium 8.8 Total Bilirubin AST ALT Alkaline Phosphatase Total Protein Albumin Globulin Albumin/Globulin Ratio Beta-Hydroxybutyric Acd TSH Urine Color Urine Appearance Urine pH Ur Specific [place] Urine Protein Urine Glucose (UA) Urine Ketones Urine Blood Urine Nitrite Urine Bilirubin Urine Urobilinogen Ur Leukocyte Esterase Urine RBC Urine WBC Ur Epithelial Cells Urine Bacteria Urine Yeast Salicylates Urine Opiates Screen Ur Methadone, Qual Acetaminophen Urine Barbiturates Ur Phencyclidine (PCP) U Amphetamin/Meth Scrn MDMA (Ecstasy) Screen U Benzodiazepines Scrn Ur Cocaine Metabolite U Marijuana (THC) Screen Ethyl Alcohol mg/dL Influenza Type A Ag Influenza Type B Ag 05/15/18 05/15/18 05/15/18 00:45 07:34 09:46 WBC RBC Hgb Hct MCV MCH MCHC RDW Std Deviation RDW Coeff of Emil Plt Count MPV Immature Gran % (Auto) Neut % (Auto) Lymph % (Auto) [place] % (Auto) Eos % (Auto) Baso % (Auto) Immature Gran # (Auto) Neut # (Auto) Lymph # (Auto) [place] # (Auto) Eos # (Auto) Baso # (Auto) Sodium Potassium Chloride Carbon Dioxide Anion Gap BUN Creatinine Est Cr Clr Drug Dosing Est GFR ( Amer) Est GFR (Non-Af Amer) BUN/Creatinine Ratio Glucose POC Glucose 185 H 324 H 440 H* Estimat Average Glucose Hemoglobin A1c Calcium Total Bilirubin AST ALT Alkaline Phosphatase Total Protein Albumin Globulin Albumin/Globulin Ratio Beta-Hydroxybutyric Acd TSH Urine Color Urine Appearance Urine pH Ur Specific [place] Urine Protein Urine Glucose (UA) Urine Ketones Urine Blood Urine Nitrite Urine Bilirubin Urine Urobilinogen Ur Leukocyte Esterase Urine RBC Urine WBC Ur Epithelial Cells Urine Bacteria Urine Yeast Salicylates Urine Opiates Screen Ur Methadone, Qual Acetaminophen Urine Barbiturates Ur Phencyclidine (PCP) U Amphetamin/Meth Scrn MDMA (Ecstasy) Screen U Benzodiazepines Scrn Ur Cocaine Metabolite U Marijuana (THC) Screen Ethyl Alcohol mg/dL Influenza Type A Ag Influenza Type B Ag 05/15/18 09:49 WBC RBC Hgb Hct MCV MCH MCHC RDW Std Deviation RDW Coeff of Emil Plt Count MPV Immature Gran % (Auto) Neut % (Auto) Lymph % (Auto) [place] % (Auto) Eos % (Auto) Baso % (Auto) Immature Gran # (Auto) Neut # (Auto) Lymph # (Auto) [place] # (Auto) Eos # (Auto) Baso # (Auto) Sodium Potassium Chloride Carbon Dioxide Anion Gap BUN Creatinine Est Cr Clr Drug Dosing Est GFR ( Amer) Est GFR (Non-Af Amer) BUN/Creatinine Ratio Glucose POC Glucose 411 H* Estimat Average Glucose Hemoglobin A1c Calcium Total Bilirubin AST ALT Alkaline Phosphatase Total Protein Albumin Globulin Albumin/Globulin Ratio Beta-Hydroxybutyric Acd TSH Urine Color Urine Appearance Urine pH Ur Specific [place] Urine Protein Urine Glucose (UA) Urine Ketones Urine Blood Urine Nitrite Urine Bilirubin Urine Urobilinogen Ur Leukocyte Esterase Urine RBC Urine WBC Ur Epithelial Cells Urine Bacteria Urine Yeast Salicylates Urine Opiates Screen Ur Methadone, Qual Acetaminophen Urine Barbiturates Ur Phencyclidine (PCP) U Amphetamin/Meth Scrn MDMA (Ecstasy) Screen U Benzodiazepines Scrn Ur Cocaine Metabolite U Marijuana (THC) Screen Ethyl Alcohol mg/dL Influenza Type A Ag Influenza Type B Ag Current Inpatient Medications Current Inpatient Medications: Current Inpatient Medications Acetaminophen (Tylenol) 650 mg PO Q4H PRN PRN Reason: Headache or Minor Fever Stop: 06/14/18 03:31 Last Admin: 05/15/18 08:27 Dose: 650 mg Al Hydrox/Mg Hydrox/Simethicone (Maalox) 30 ml PO Q4H PRN PRN Reason: GI Upset Stop: 06/14/18 03:31 Last Admin: 05/15/18 03:45 Dose: 30 ml Bismuth Subsalicylate (Kaopectate) 15 ml PO PRN PRN PRN Reason: Loose Stool Stop: 06/14/18 03:31 Hydroxyzine HCl (Vistaril) 50 mg PO HSZ PRN PRN Reason: Insomnia Stop: 06/14/18 03:31 Hydroxyzine HCl (Vistaril) 25 mg PO Q4H PRN PRN Reason: Anxiety Stop: 06/14/18 03:31 Last Admin: 05/15/18 03:53 Dose: 25 mg Insulin Aspart (Novolog Flexpen) 0 units SC ACHS [facility] Stop: 06/14/18 08:44 Last Admin: 05/15/18 09:52 Dose: 15 units Lisinopril (Zestril) 10 mg PO QAM [facility] Stop: 06/13/18 12:44 Last Admin: 05/14/18 15:09 Dose: Not Given Magnesium Hydroxide (Milk Of Magnesia) 30 ml PO DAILY PRN PRN Reason: Heartburn Stop: 06/14/18 03:31 Miscellaneous Information (Consult Glycemic Management Pharmacy) 1 ea N/A UD PRN PRN Reason: Consult Stop: 06/14/18 08:10 Naproxen (Naprosyn) 375 mg PO BID [facility] Stop: 05/17/18 23:00 Sodium Chloride ([place] Nasal) 1 - 2 sprays NA PRN PRN PRN Reason: Nasal Dryness/Congestion Stop: 06/14/18 03:31 Last Admin: 05/15/18 04:44 Dose: 2 sprays CPT Code CPT Code Initial Hospital Care: [id number]
[2018-05-15] MEDS ORDERED: NON-FORMULARY MEDICATION (Empagliflozin [Jardiance] 25 MG) PO SCH (11:15)
[2018-05-15] MEDS: hydroCHLOROthiazide 25 MG TAB PO SCH (11:45)
[2018-05-15] MEDS: MULTIVITAMIN TAB PO SCH (11:46)
[2018-05-15] MEDS: NAPROXEN 375 MG TAB PO SCH ×2 (11:46→21:10)
[2018-05-15] MEDS: ASPIRIN 81 MG ECTAB PO SCH (11:46)
[2018-05-15] MEDS: VENLAFAXINE HCL XR 75 MG CAPXR PO SCH (11:46)
[2018-05-15] MEDS: methIMAzole 5 MG TABLET PO SCH (11:46)
[2018-05-15] MEDS: TRAMADOL HCL 50 MG TABLET PO PRN (11:47)
[2018-05-15] MEDS: LISINOPRIL 10 MG TAB PO SCH (11:51)
--- NOTE | 2018-05-15 14:48 | Pharmacy Report ---
Glycemic Control Consultation - Date of Service May 15, 2018 - Scope Scope: Glycemic Pharmacist consulted by Dr Connolly on 05/15/18 for glycemic control and to write orders per [facility] inpatient glycemic control protocol - Objective Weight: 71 kg Accuchecks BSG (last 24hrs): 05/14/18 05/14/18 05/14/18 15:23 15:25 16:08 Glucose POC Glucose 411 H* 419 H* 458 H* 05/14/18 05/14/18 05/14/18 16:59 18:06 19:18 Glucose POC Glucose 346 H 250 H 101 H 05/14/18 05/14/18 05/14/18 20:04 20:15 21:24 Glucose 50 L* POC Glucose 70 123 H 05/15/18 05/15/18 05/15/18 00:45 07:34 09:46 Glucose POC Glucose 185 H 324 H 440 H* 05/15/18 05/15/18 09:49 12:10 Glucose POC Glucose 411 H* 317 H Laboratory Data (last 24hrs): 05/14/18 20:15 Potassium 2.7 L D Carbon Dioxide 23 Anion Gap 9.0 Creatinine 0.93 Est Cr Clr Drug Dosing 49.0 HbA1c: Hemoglobin A1c 15.4 % (4.5-5.6) H 05/14/18 12:48 - Recent Pertinent Medications Outpatient Anti-diabetic Regimen: * Humalog 75/25 45u AM and 30u PM * A1c = 15.4 % 05/14/18 - Assessment & Plan Assessment & Plan: ASSESSMENT: * Ms. Mei is a 67yo F known to the pharmacy glycemic service from previous admissions. She p/w severe depression following the loss of her daughter. PMHx consistent with: DM-II, HTN, HLD, among other co-morbidities. By her own admission, she is not compliant with her medications. Ergo, I feel it is ill- advised to directly convert her outpt regimen to a lantus/novolog regimen. We will use doses from previous admissions to guide our insulin tx. * She is not on any atypical antipsych medications. No other RF for insulin resistance other than her elevated A1C. PLAN FOR INPATIENT GLYCEMIC CONTROL: * Holding outpatient oral diabetes medications: Jardiance can likely be d/c'd at discharge given elevated A1C * Basal insulin * Lantus 25 units given this AM, then lantus scale is ordered for tonight * 25 units for BSGs <200mg/dL * 30 units for BSGs >/=200mg/dL * Bolus insulin * NovoLog per scale ACHS or Q6hrs while NPO * Goal Range: Low 110 mg/dL - High 140 mg/dL * Correction Factor: 20 mg/dL/unit * Nutritional / Prandial insulin per carb ratio of 1 unit per 7 grams CHO consumed * will add 00,04 checks in the setting of sustained hyperglycemia * Please note that the plan above was derived based on current level of insulin resistance and hospital stress. These recommendations are appropriate for inpatient admission only. Plan of care upon discharge will need to be reassessed to avoid potential outpatient hypo/hyperglycemia. Thank you.
[2018-05-15] MEDS ORDERED: INSULIN LISPRO 75%/25% SQ SCH (17:45)
[2018-05-15] MEDS ORDERED: INSULIN GLARGINE SOLOSTAR 100 UNITS/ML 3 ML PEN SC SCH (21:00)
[2018-05-15] MEDS: ATORVASTATIN 40 MG TAB PO SCH (21:10)
[2018-05-15] MEDS: INSULIN GLARGINE SOLOSTAR 100 UNITS/ML 3 ML PEN SC SCH (21:11)
[2018-05-16] MEDS: INSULIN ASPART 100 UNITS/ML 3 ML PEN SC SCH ×6 (00:11→21:20)
[2018-05-16] MEDS: ACETAMINOPHEN 325 MG TAB PO PRN (00:15)
[2018-05-16] MEDS: TRAMADOL HCL 50 MG TABLET PO PRN (02:02)
[2018-05-16] MEDS: PANTOprazole 40 MG TAB PO SCH (08:44)
[2018-05-16] MEDS: LISINOPRIL 10 MG TAB PO SCH (08:44)
[2018-05-16] MEDS: MULTIVITAMIN TAB PO SCH (08:44)
[2018-05-16] MEDS: VENLAFAXINE HCL XR 75 MG CAPXR PO SCH (08:44)
[2018-05-16] MEDS: NAPROXEN 375 MG TAB PO SCH ×2 (08:44→21:17)
[2018-05-16] MEDS: ASPIRIN 81 MG ECTAB PO SCH (08:44)
[2018-05-16] MEDS: methIMAzole 5 MG TABLET PO SCH (08:44)
[2018-05-16] MEDS: INSULIN GLARGINE SOLOSTAR 100 UNITS/ML 3 ML PEN SC SCH ×2 (08:47→21:18)
[2018-05-16] MEDS: hydroCHLOROthiazide 25 MG TAB PO SCH (08:49)
--- NOTE | 2018-05-16 09:46 | Psychiatric Progress Note ---
Date of Service May 16, 2018 Impression / Recommendations Impression Pt provides pleasant, but vague responses to questions - stating she is doing better than she appears to be. Pt remains tearful and admits to ongoing sadness regarding the date anniversaries related to her daughter's 19 years ago. Pt states the time between and Summer is always difficult for this reason, but this year has impacted her significantly more than usual. She is being restarted on medications, and mood, blood pressure, and glucose are improving. Decided to titrate venlafaxine to 150mg starting with tomorrow' s dose. This dose reportedly allowed for stability in the past, but with recent stressors may require additional titration. Continuing to observe for elevated blood pressure, which was improved this morning. Though patient states she is doing better, she still does not give the impression she would be successful returning home at this time. Hopeful for family meeting to involve supports and determine aftercare arrangements which promote compliance. (1) Major depressive disorder, recurrent severe without psychotic features: 05/15 - Restart Effexor XR 75 mg daily titrating as tolerated - Supplemental information from - Explore barriers to accepting psychiatric follow up - Q 15 min checks for safety - Encourage participation in group and individual therapy - Explore healthy coping strategies - Family meeting if indicated. - Safety planning - Aftercare planning 05/16 - Titration of venlafaxine ER to 150mg starting tomorrow morning - Continue attempts to gather collateral information - Ideally will have family meeting with support prior to discharge - Pt encouraged to explore coping skills and arrangements which may help her to better mange these next few difficult months. Encouraged to ask for assistance from therapists as necessary. (2) Diabetes mellitus type 2, uncontrolled: 05/15 - Consult diabetic pharmacist to help manage diabetes - Will consult [facility] to assist with all of medical conditions - BSG's AC/HS 2 - Glucose remains elevated, but improved compared to admission (3) Hypertension: 05/15 - Clarify meds with Dr. Batista's office - Will consult [facility] hospital[facility] to assist with all medical problems - Jan BP 2 - BP declining since resuming home medications - continue to monitor (4) Hyperthyroidism: 05/15 - TSH - Consult [facility] hospitalists to assist with all medical problems (5) HNP (herniated nucleus pulposus), lumbar: 05/15 - Will order 3 days of naproxen 375 mg BID to reduce inflamation - Had been using Tramadol as an OP. - Will consult [facility] hospitalists to assist with all medical problems. Inventory Assets Strengths: Lives with who is supportive, willingness to engage in treatment Needs: Consistent follow-through with aftercare appointments Risk Factors Assessment Male: No : Yes Do You Have Access To A Gun?: No Health Problems: Yes Mental Health Diagnoses: Yes Substance Use Disorders: No Previous Attempt: No Family History of Suicide: Yes Previous Psychiatric Hospitalization: Yes Hopelessness: No Smoker: No Protective Factors Assessment Yazdanism Beliefs: Yes : Yes Responsible for Young Children: No Employed: No Stable Relationships: Yes Supportive Family: Yes Interval History Identifying Information CRISS LEGGETT is a 67-year-old F who presented to our emergency department yesterday with complaints of severe depression in the setting of the loss of a daughter several years ago. The patient is admitted voluntarily. Information is gathered from the patient and considered to be reliable. Chief Complaint "Well honey, my daughter's birthday, the one who passed, was just recently." Review of Systems Notes Constitutional: reports low energy Cardiovascular: denied Respiratory: denied Gastrointestinal: denied Neurological: denied Psychiatric: denies symptoms other than stated above Total of at least 10 systems reviewed, pertinent positives as above and in HPI. Sleep Information Total Hours of Sleep: 6 Sleep Comments: pt. was awake on 0000 rounds for her BSG check then medicated with tylenol for sciatic back/hip/leg pain. her bed position was adjusted and a pillow was offered. she was unable to settle still and was provided with tramadol prn and encouraged to use a pillow when side laying. she had already used her daily heat pack. she fell to sleep, softly snoring, on 0350 rounds. Meal Information Percent Meal Consumed - Breakfast: 40 Percent Meal Consumed - Lunch: 100 Percent Meal Consumed - Dinner: 95 Subjective Subjective Patient was seen & assessed and interval progress reviewed with Treatment Team. Staff report patient has been pleasant on the unit and participating appropriately. Pt was seen today to assess progress since admission. Pt states she has been doing well on the unit. She restarted venlafaxine ER 75mg upon admission. Prior to [place], the patient states that 150mg of venlfaxaine ER had continued to be helpful for mood and anxiety. She tells this provider that she has not stopped her medication at that she has remained on 150mg, even currently in the hospital. Situational stressors of anniversaries related to her daughter's . Attempt to discuss with patient coping strategies that have been helpful in the past, as two of these significant dates are in August. Pt was given some things to consider (reaching out to friends to schedule regular dates, requesting that supports reach out to her, or even possibly considering increase in medications during that span of months). Pt did not offer much to this conversation. She was encouraged to continue to think about this and request help as necessary during her stay. Pt denies SI currently or any new concerns. Medical consultation requested at admission, and will hopefully be seen this morning. Physical Exam Psychiatric Orientation: alert, oriented x 3 and cooperative Apperance: appropriately dressed and appropriately groomed Eye Contact: good eye contact Motor Behavior: steady gait and station and no abnormal motor movements Speech: normal rate/rhythm/volume of speech Affect: + depressed affect and + tearful affect Mood: + depressed mood ("I don't know why it's been so hard this year" and "still very sad") Thought Process: goal directed thought process and clear/coherent thought process Thought Content: reality based without delusions Suicidal Thoughts: denies suicidal thoughts Homicidal Thoughts: denies homicidal thoughts Hallucinations: no auditory hallucinations and no visual hallucinations Cognition: attention grossly intact and language grossly intact; + remote memory not intact (somewhat intact, stated today that she had never stopped her medications) Estimated Intelligence: average estimated intelligence Insight: + limited insight Judgement: + limited judgement Vital Signs (Past 24 Hours) Last Vital Signs Temp 36.7 C 05/15/18 06:58 Pulse 93 H 05/15/18 11:10 Resp 16 05/15/18 06:58 BP 149/91 H 05/15/18 11:10 Pulse Ox 99 05/15/18 02:25 Results & Data Laboratory Results Laboratory Results - last 24 hr 05/15/18 05/15/18 05/15/18 09:46 09:49 12:00 POC Glucose 440 H* 411 H* TSH 0.475 05/15/18 05/15/18 05/15/18 12:10 17:02 20:32 POC Glucose 317 H 244 H 367 H* TSH 05/15/18 05/15/18 05/16/18 20:36 21:18 00:00 POC Glucose 412 H* 382 H* 204 H TSH 05/16/18 08:10 POC Glucose 225 H TSH Current Inpatient Medications Current Inpatient Medications: Current Inpatient Medications Acetaminophen (Tylenol) 650 mg PO Q4H PRN PRN Reason: Headache or Minor Fever Stop: 06/14/18 03:31 Last Admin: 05/16/18 00:15 Dose: 650 mg Al Hydrox/Mg Hydrox/Simethicone (Maalox) 30 ml PO Q4H PRN PRN Reason: GI Upset Stop: 06/14/18 03:31 Last Admin: 05/15/18 03:45 Dose: 30 ml Aspirin (Ecotrin Ectab) 81 mg PO QAM [facility] Stop: 06/14/18 11:14 Last Admin: 05/16/18 08:44 Dose: 81 mg Atorvastatin Calcium (Lipitor) 40 mg PO HS [facility] Stop: 06/14/18 21:59 Last Admin: 05/15/18 21:10 Dose: 40 mg Bismuth Subsalicylate (Kaopectate) 15 ml PO PRN PRN PRN Reason: Loose Stool Stop: 06/14/18 03:31 Hydrochlorothiazide (Hctz) 12.5 mg PO QAM [facility] Stop: 06/14/18 11:14 Last Admin: 05/16/18 08:49 Dose: 12.5 mg Hydroxyzine HCl (Vistaril) 50 mg PO HSZ PRN PRN Reason: Insomnia Stop: 06/14/18 03:31 Hydroxyzine HCl (Vistaril) 25 mg PO Q4H PRN PRN Reason: Anxiety Stop: 06/14/18 03:31 Last Admin: 05/15/18 03:53 Dose: 25 mg Insulin Aspart (Novolog Flexpen) [facility] Stop: 06/14/18 08:44 Last Admin: 05/16/18 08:50 Dose: 11 units Insulin Glargine (Lantus Solostar Pen) 0 units SC BID [facility]; Protocol Stop: 06/14/18 20:59 Last Admin: 05/16/18 08:47 Dose: 30 units [facility]inop[facility]estril) [facility] Stop: 06/15/18 08:59 Last Admin: 05/16/18 08:44 Dose: 10 mg Magnesium Hydroxide (Milk Of Magnesia) 30 ml PO DAILY PRN PRN Reason: Heartburn Stop: 06/14/18 03:31 Methimazole (Tapazole) 10 mg PO QAM [facility] Stop: 06/14/18 11:14 Last Admin: 05/16/18 08:44 Dose: 10 mg Metoprolol Tartrate (Lopressor) 25 mg PO BID [facility] Stop: 06/15/18 09:44 Miscellaneous Information (Consult Glycemic Management Pharmacy) 1 ea N/A UD PRN PRN Reason: Consult Stop: 06/14/18 08:10 Multivitamins (Multivitamin Tab) 1 tab PO DAILY I[facility] Stop: 06/14/18 11:14 Last Admin: 05/16/18 08:44 Dose: 1 tab Naproxen (Naprosyn) 375 mg PO BID [facility] Stop: 05/17/18 23:00 Last Admin: 05/16/18 08:44 Dose: 375 mg Pantoprazole Sodium (Protonix) 40 mg PO DAILYBB [facility] Stop: 06/15/18 07:59 Last Admin: 05/16/18 08:44 Dose: 40 mg Sodium Chloride ([place] Nasal) 1 - 2 sprays NA PRN PRN PRN Reason: Nasal Dryness/Congestion Stop: 06/14/18 03:31 Last Admin: 05/15/18 04:44 Dose: 2 sprays Tramadol HCl (Ultram) 50 mg PO Q8H PRN PRN Reason: Pain Stop: 06/14/18 11:03 Last Admin: 05/16/18 02:02 Dose: 50 mg Venlafaxine HCl (Effexor Extended Release) 75 mg PO QAM [facility] Stop: 06/14/18 11:14 Last Admin: 05/16/18 08:44 Dose: 75 mg Post Discharge Appointments Primary Care Physician Name Of Family Doctor: RAJNI Batista Primary Care Provider Appointment Comment: [address], [address], [place] [address] Therapist Name of Therapist: None Computerized Table Cutter Name of Computerized Table Cutter: None Contact Information Discharge Discharge Address: [address] [place] [address] CPT Code CPT Code 24660 _ (1) Hypertension Hypertension type: unspecified Qualified Code(s): I10 - Essential (primary) hypertension
[2018-05-16] MEDS: METOPROLOL TARTRATE 25 MG TAB PO SCH ×2 (11:14→21:17)
--- NOTE | 2018-05-16 13:48 | Pharmacy Report ---
Pharmacy Glycemic Short Note 2 - Date of Service May 16, 2018 - Glycemic Short BSG Results (Last 24 hours): 05/15/18 05/15/18 05/15/18 17:02 20:32 20:36 POC Glucose 244 H 367 H* 412 H* 05/15/18 05/16/18 05/16/18 21:18 00:00 08:10 POC Glucose 382 H* 204 H 225 H 05/16/18 12:33 POC Glucose 244 H ASSESSMENT: * BSGs slightly improved today. BSGs over the previous 24 hrs: 349-290-198-225- 244mg/dL. A slow down-titration in sugars is advisable due to significantly elevated A1C. I increased her lantus for tonight to hopefully improve BSGs for . * It is OK to non-admin the overnight checks if Ms. Mei is sleeping to help improve her sleep-deprivation and MDD PLAN FOR INPATIENT GLYCEMIC CONTROL: * Hold outpatient oral diabetes medications * Basal insulin - increased * Lantus scale SQ BID * 30 units for BSGs <200mg/dL * 35 units for BSGs >/=200mg/dL * Bolus insulin - tightened * NovoLog per scale ACHS or Q6hrs while NPO * Goal Range: Low 110 mg/dL - High 140 mg/dL * Correction Factor: 20 mg/dL/unit * Nutritional / Prandial insulin per carb ratio of 1 unit per 5 grams CHO consumed
--- NOTE | 2018-05-16 18:48 | Consultation ---
Date of Consultation May 16, 2018 Assessment & Plan (1) Hypertension: The patients' BPs were markedly elevated at time of admission and remained high until today. Restarting her IVORY inhibitor and HCTZ have improved her BPs rather quickly. She admitted to not taking these meds for some time prior to admission. She is orthostatic today with SBP drop of about 30 points with standing; however , she is not symptomatic from this. She may have autonomic insufficiency from long-standing, uncontrolled T2DM. Since uncontrolled DM can lead to dehydration and the HCTZ can also cause volume depletion I would STOP the HCTZ. In its place would use metoprolol 25mg BID. This can ultimately be converted to toprol xl once daily. Check orthostatic BPs once/shift. Adjust meds as necessary. Present on Admission?: Yes (2) Orthostatic hypotension: See discussion above in "HTN." Recheck BMP and mag levels today; replete any low electrolyte. Adjust BP meds as needed. Fortunately she is not symptomatic despite the orthostasis. (3) Diabetes mellitus type 2, uncontrolled: I appreciate the pharmacy glycemic team efforts. Overall control has improved considerably since admission. Consider referral to the [facility] DM clinic after d/c. 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 Recheck BMP/mag today. (4) Hypokalemia: Was low at time of presentation on 05/14/18. I don't know if this was replaced. Recheck BMP and mag NOW; replete as needed. Low K likely due to HCTZ use, poor appetite, and wasting from DM. (5) Hyperthyroidism: TSH is normal. Cont methimazole. She has not seen endocrinology "for years". I advised f/u with endo after discharge. (6) Major depressive disorder, recurrent severe without psychotic features: defer management to mental health team. (7) Dyslipidemia: LFTs were normal on 05/14/18. Continue statin agent as previous. We appreciate this consult. Our team will follow with you. History of Present Illness Reason for Consultation: medical management of HTN, etc. Requesting Physician: Felisa Connolly MD Attending Physician: Felisa Connolly MD History of Present Illness 67yo female with history of major depression, HTN, uncontrolled T2DM, and hyperthyroidism who presented to [facility] with severe depression. This was in the absence of any suicidal ideation or psychotic symptoms. She was admitted to the inpatient mental health unit for treatment of her major depression. She admitted to noncompliance with her normal medications (BP meds, insulin, etc ) at time of admission. As a result of her noncompliance her blood pressures were markedly elevated at time of presentation as was her blood glucoses. At the time of my consultation the patient was in relatively good spirits. She offered no complaints. She talked a lot about her daughter and how her birthday often sets off severe depressive symptoms. She denied any chest pain, dyspnea, sore throat, fever, chills, abdominal pain, nausea, emesis, dizziness/lightheadedness, or dysuria. She has lost weight in the last 1-2 weeks due to her depression. I took note that her BPs are significantly improved today and her glycemic control is also improved. Allergies Allergy/AdvReac Type Severity Reaction Status Date / Time No Known Allergies Allergy Unverified 05/14/18 13:50 Home Medications Home Medications Medication Instructions Recorded Confirmed Type acetaminophen [Tylenol Extra 1,000 mg PO BID PRN 03/17/18 05/15/18 History Strength] aspirin 81 mg PO QAM 03/17/18 05/14/18 History atorvastatin 40 mg PO QAM 03/17/18 05/14/18 History hydrochlorothiazide 12.5 mg PO QAM 03/17/18 05/14/18 History insulin lispro protamin-lispro 30 unit SUBCUT QDD 03/17/18 05/14/18 History [Humalog Mix 75-25 KwikPen] insulin lispro protamin-lispro 45 unit SUBCUT QDB 03/17/18 05/14/18 History [Humalog Mix 75-25 KwikPen] lisinopril 10 mg PO QAM 03/17/18 05/14/18 History methimazole 10 mg PO QAM 03/17/18 05/14/18 History pantoprazole 40 mg PO DAILYBB 03/17/18 05/15/18 History venlafaxine 75 mg PO QAM 03/17/18 05/14/18 History doxylamine succinate 25 mg PO HS PRN 05/15/18 05/15/18 History empagliflozin [Jardiance] 25 mg PO DAILY 05/15/18 05/15/18 History multivitamin 1 tab PO DAILY 05/15/18 05/15/18 History tramadol 50 mg PO Q8H PRN 05/15/18 05/15/18 History Patient History Medical History Diabetes mellitus type 2, uncontrolled (Resolved) Pre-syncope (Resolved) Dyslipidemia HNP (herniated nucleus pulposus), lumbar Hyperthyroidism Hypertension Type II diabetes mellitus (Chronic) Major depressive disorder, recurrent severe without psychotic features (Acute) Hyperglycemia (Inactive) Hypothyroidism (Inactive) Sinusitis (Inactive) Depression Diabetes HLD (hyperlipidemia) HTN (hypertension) Hyperthyroidism Family History Father Lung cancer Mother Alzheimer disease Brother COPD (chronic obstructive pulmonary disease) Social History marital status: Current Living Situation: Spouse current occupation: retired - worked at [employer] Feels Safe at Home: Yes Smoking Status: Never smoker Hx Alcohol Use: No Hx Substance Use: No Beliefs That Will Affect Care: None Preferred Language: Togolese Communication Ability: Effective Help Desk Rep Required: No Review of Systems Constitutional: + anorexia and + weight loss; no fever, no chills and no fatigue Eyes: no worsening vision Ear, Nose, Mouth, Throat: no nasal congestion, no sore throat and no dysphagia Respiratory: no cough, no dyspnea and no dyspnea on exertion Cardiovascular: no chest pain, no orthopnea, no paroxysmal nocturnal dyspnea and no edema Gastrointestinal: no abdominal pain, no nausea, no vomiting and no constipation Genitourinary (Female): no dysuria Musculoskeletal: no back pain Integumentary: no rash Neurologic: no falls and no dizziness Psychiatric: + depression; no anxiety Endocrine: no polydipsia and no polyphagia Physical Exam 2 Vital Signs (Past 24 Hours): Last Vital Signs Temp 36.6 C 05/16/18 10:31 Pulse 102 H 05/16/18 15:01 Resp 16 05/16/18 15:01 BP 101/70 05/16/18 15:01 Pulse Ox 99 05/15/18 02:25 Constitutional: WD/WN, vitals as above no acute distress Eyes: PERRL ENMT: external ear and nose normal, oropharynx normal Neck: normal visual inspection probable multiple small nodules in thyroid; nontender Respiratory: normal respiratory effort, lungs clear to auscultation Cardiovascular: RRR, no murmur, no edema Heart Sounds: normal S1 and normal S2 Vessels: posterior tibial pulses present and dorsalis pedis pulses present; no JVD Gastrointestinal (Abdomen): normal bowel sounds, soft, nontender, no hepatosplenomegaly Musculoskeletal: no cyanosis or clubbing, extremities motor strength 5/5 Skin: no rashes, warm and dry Neurologic: deep tendon reflexes 2+ bilaterally and moves all extremities Psychiatric: Orientation: alert and oriented x 3 Mood: + depressed mood Lymphatic: no cervical lymphadenopathy Results & Data Laboratory Results Laboratory Results - last 24 hr 05/15/18 05/15/18 05/15/18 20:32 20:36 21:18 POC Glucose 367 H* 412 H* 382 H* 05/16/18 05/16/18 05/16/18 00:00 08:10 12:33 POC Glucose 204 H 225 H 244 H 05/16/18 17:00 POC Glucose 181 H Diagnostic Findings EKG - NSR; Nonspecific ST flattening anterolateral leads but no T wave inversions _ (1) Hypertension Hypertension type: unspecified Qualified Code(s): I10 - Essential (primary) hypertension (2) Diabetes mellitus type 2, uncontrolled Glycemic state: with hyperglycemia Qualified Code(s): E11.65 - Type 2 diabetes mellitus with hyperglycemia
[2018-05-16 19:23] LABS: BUN Creatinine Ratio 25.3 (10-20); Calcium 9.6 mg/dl (8.5-10.1); Est GFR (African American) 44.6; Est GFR (Non-African American) 38.5; Magnesium 1.7 mg/dl (1.8-2.4); Potassium 4.9 mmol/L (3.5-5.1)
[2018-05-16] MEDS: ATORVASTATIN 40 MG TAB PO SCH (21:17)
[2018-05-16] MEDS: MAGNESIUM OXIDE 400 MG TAB PO SCH (21:17)
[2018-05-17] MEDS: ACETAMINOPHEN 325 MG TAB PO PRN (00:28)
[2018-05-17] MEDS: INSULIN ASPART 100 UNITS/ML 3 ML PEN SC SCH ×6 (00:36→21:19)
[2018-05-17] MEDS: TRAMADOL HCL 50 MG TABLET PO PRN (02:25)
[2018-05-17 08:17] LABS: BUN Creatinine Ratio 33.1 (10-20); Calcium 9.1 mg/dl (8.5-10.1); Creatinine Clr Calc Pharmacy 46.2 ml/min; Est GFR (Non-African American) 57.8; Potassium 4.4 mmol/L (3.5-5.1)
[2018-05-17] MEDS: PANTOprazole 40 MG TAB PO SCH (08:53)
[2018-05-17] MEDS: ASPIRIN 81 MG ECTAB PO SCH (08:54)
[2018-05-17] MEDS: VENLAFAXINE HCL XR 75 MG CAPXR PO SCH (08:54)
[2018-05-17] MEDS: MAGNESIUM OXIDE 400 MG TAB PO SCH ×2 (08:54→21:16)
[2018-05-17] MEDS: METOPROLOL TARTRATE 25 MG TAB PO SCH ×2 (08:54→21:16)
[2018-05-17] MEDS: MULTIVITAMIN TAB PO SCH (08:55)
[2018-05-17] MEDS: NAPROXEN 375 MG TAB PO SCH ×2 (08:55→21:15)
[2018-05-17] MEDS: methIMAzole 5 MG TABLET PO SCH (08:55)
[2018-05-17] MEDS: INSULIN GLARGINE SOLOSTAR 100 UNITS/ML 3 ML PEN SC SCH ×2 (09:00→21:16)
--- NOTE | 2018-05-17 11:27 | Psychiatric Progress Note ---
Date of Service May 17, 2018 Impression / Recommendations Impression Pt provides pleasant, but ongoing superficial responses to questions - stating she is doing better than she appears to be. When the topic is approached she is tearful and admits to ongoing sadness regarding the date anniversaries related to her daughter's 19 years ago, as she previously stated the time between and Summer is always difficult for this reason, At admission she is being restarted on medications, and mood, blood pressure, and glucose are improving. Decided to titrate venlafaxine to 150mg as of . This dose reportedly allowed for stability in the past, but with recent stressors may require additional titration. Though patient states she is doing better, she still does not give the impression she would be successful returning home at this time. Hopeful for family meeting to involve supports and determine aftercare arrangements which promote compliance. (1) Major depressive disorder, recurrent severe without psychotic features: 05/15 - Restart Effexor XR 75 mg daily titrating as tolerated - Supplemental information from - Explore barriers to accepting psychiatric follow up - Q 15 min checks for safety - Encourage participation in group and individual therapy - Explore healthy coping strategies - Family meeting if indicated. - Safety planning - Aftercare planning 05/16 - Titration of venlafaxine ER to 150mg starting tomorrow morning - Continue attempts to gather collateral information - Ideally will have family meeting with support prior to discharge - Pt encouraged to explore coping skills and arrangements which may help her to better mange these next few difficult months. Encouraged to ask for assistance from therapists as necessary. 05/17 - continue with plan as noted above (2) Diabetes mellitus type 2, uncontrolled: 05/15 - Consult diabetic pharmacist to help manage diabetes - Will consult [facility] hospitalists to assist with all of medical conditions - BSG's AC/HS 2 - Glucose remains elevated, but improved compared to admission (3) Hypertension: 05/15 - Clarify meds with Dr. Batista's office - Will consult [facility] hospitalists to assist with all medical problems - Jan BP 2 - BP declining since resuming home medications - continue to monitor 05/17 - appreciate managment by internal medicine, orthostasis today so discussed slow positional changes (4) Hyperthyroidism: 05/15 - TSH - Consult [facility] hospitalists to assist with all medical problems (5) HNP (herniated nucleus pulposus), lumbar: 2/7 - Will order 3 days of naproxen 375 mg BID to reduce inflamation - Had been using Tramadol as an OP. - Will consult [facility] hospitalists to assist with all medical problems. Inventory Assets Strengths: Lives with who is supportive, willingness to engage in treatment Needs: Consistent follow-through with aftercare appointments Risk Factors Assessment Male: No : Yes Do You Have Access To A Gun?: No Health Problems: Yes Mental Health Diagnoses: Yes Substance Use Disorders: No Previous Attempt: No Family History of Suicide: Yes Previous Psychiatric Hospitalization: Yes Hopelessness: No Smoker: No Protective Factors Assessment [employer] Beliefs: Yes : Yes Responsible for Young Children: No Employed: No Stable Relationships: Yes Supportive Family: Yes Interval History Identifying Information CRISS LEGGETT is a 67-year-old F who presented to our emergency department yesterday with complaints of severe depression in the setting of the loss of a daughter several years ago. The patient is admitted voluntarily. Information is gathered from the patient and considered to be reliable. Chief Complaint "I think I am doing a little better". Review of Systems Sleep Information Total Hours of Sleep: 7.5 Sleep Comments: pt. was awake on 0000 rounds for her BSG check then medicated with tylenol for sciatic back/hip/leg pain. her bed position was adjusted and a pillow was offered. she was unable to settle still and was provided with tramadol prn and encouraged to use a pillow when side laying. she had already used her daily heat pack. she fell to sleep, softly snoring, on 0350 rounds. Meal Information Percent Meal Consumed - Breakfast: 80 Percent Meal Consumed - Lunch: 80 Percent Meal Consumed - Dinner: 100 Subjective Subjective Patient was seen & assessed and interval progress reviewed with Treatment Team Per staff the aptient is engaged in the milieu but came with such poor self care at home she seems to be slowly improving in this regard as her blood sugars improve and starting medications. IM has seen the patient and making changes to include stopping HCTZ and starting metoprolol the latter of which was held yesterday due to hypotension. She is normotensive today sitting but orthostatic with positional changes. As IM noted this may be due to longstanding T2DM damage to her autonomic system. Met patient. SHe ntoes she is having modest dizziness to positional change, discussed slow positional changes which she notes she does. She has some swelling in her toes this AM and sciatica the latter disrupting her sleep overnight, felt the warm pack offered to her was most helpful. She o/w denies physical concerns at this time, intact appetite and denies SE to effexor. SHe notes her mood is 5/10 (10 best, 0 worst) and denies SI "no I don't want to go out like that I had 3 cousins that completed suicide" She notes that she was so depressed at home and "it keeps me from caring, and is happens so slowly I can't even seem to realize it is happening" She does feel sad but states she feels a little better since arriving here. She has limited insight to safety planning or ways to recognize her own depression. She is hopeful that after care with psychiatrist and therapist will help. She denies feeling anxious at this time. Physical Exam Psychiatric Orientation: alert, oriented x 3 and cooperative Apperance: appropriately dressed and appropriately groomed Eye Contact: good eye contact Motor Behavior: steady gait and station and no abnormal motor movements Speech: normal rate/rhythm/volume of speech appears calm and friendly with a sense of superficial social politeness over a sadness Mood: + depressed mood Thought Process: goal directed thought process and clear/coherent thought process Thought Content: reality based without delusions Suicidal Thoughts: denies suicidal thoughts Homicidal Thoughts: denies homicidal thoughts Hallucinations: no auditory hallucinations and no visual hallucinations Cognition: recent memory grossly intact, attention grossly intact and language grossly intact; + remote memory not intact (somewhat intact, stated today that she had never stopped her medications) Estimated Intelligence: average estimated intelligence Insight: + limited insight Judgement: + limited judgement Vital Signs (Past 24 Hours) Last Vital Signs Temp 36.8 C 05/17/18 06:00 Pulse 135 H 05/17/18 07:08 Resp 16 05/17/18 06:00 BP 128/82 05/17/18 07:08 Pulse Ox 99 05/15/18 02:25 Results & Data Laboratory Results Laboratory Results - last 24 hr 05/16/18 05/16/18 05/16/18 12:33 17:00 18:45 Sodium 132 L D Potassium 4.9 D Chloride 98 Carbon Dioxide 27 Anion Gap 7.0 BUN 35 H D Creatinine 1.40 H D Est Cr Clr Drug Dosing 33.0 Est GFR ( Amer) 44.6 Est GFR (Non-Af Amer) 38.5 BUN/Creatinine Ratio 25.3 H Glucose 327 H POC Glucose 244 H 181 H Calcium 9.6 Magnesium 1.7 L Beta-Hydroxybutyric Acd 2.55 05/16/18 05/17/18 05/17/18 20:42 00:32 07:15 Sodium 137 Potassium 4.4 Chloride 105 Carbon Dioxide 25 Anion Gap 7.0 BUN 33 H Creatinine 1.00 D Est Cr Clr Drug Dosing 46.2 Est GFR ( Amer) 67.0 Est GFR (Non-Af Amer) 57.8 BUN/Creatinine Ratio 33.1 H Glucose 165 H POC Glucose 241 H 144 H Calcium 9.1 Magnesium Beta-Hydroxybutyric Acd 05/17/18 08:20 Sodium Potassium Chloride Carbon Dioxide Anion Gap BUN Creatinine Est Cr Clr Drug Dosing Est GFR ( Amer) Est GFR (Non-Af Amer) BUN/Creatinine Ratio Glucose POC Glucose 155 H Calcium Magnesium Beta-Hydroxybutyric Acd Current Inpatient Medications Current Inpatient Medications: Current Inpatient Medications Acetaminophen (Tylenol) 650 mg PO Q4H PRN PRN Reason: Headache or Minor Fever Stop: 06/14/18 03:31 Last Admin: 05/17/18 00:28 Dose: 650 mg Al Hydrox/Mg Hydrox/Simethicone (Maalox) 30 ml PO Q4H PRN PRN Reason: GI Upset Stop: 06/14/18 03:31 Last Admin: 05/15/18 03:45 Dose: 30 ml Aspirin (Ecotrin Ectab) 81 mg PO QAM IAN Stop: 06/14/18 11:14 Last Admin: 05/17/18 08:54 Dose: 81 mg Atorvastatin Calcium (Lipitor) 40 mg PO HS IAN Stop: 06/14/18 21:59 Last Admin: 05/16/18 21:17 Dose: 40 mg Bismuth Subsalicylate (Kaopectate) 15 ml PO PRN PRN PRN Reason: Loose Stool Stop: 06/14/18 03:31 Hydroxyzine HCl (Vistaril) 50 mg PO HSZ PRN PRN Reason: Insomnia Stop: 06/14/18 03:31 Hydroxyzine HCl (Vistaril) 25 mg PO Q4H PRN PRN Reason: Anxiety Stop: 06/14/18 03:31 Last Admin: 05/17/18 00:40 Dose: 25 mg Insulin Aspart (Novolog Flexpen) 0 units SC ACHS [facility] Stop: 06/14/18 08:44 Last Admin: 05/17/18 09:02 Dose: 12 units Insulin Glargine (Lantus Solostar Pen) 0 units SC BID [facility]; Protocol Stop: 06/14/18 20:59 Last Admin: 05/17/18 09:00 Dose: 30 units Lisinopril (Zestril) 10 mg PO QAM [facility] Stop: 06/15/18 08:59 Last Admin: 05/16/18 08:44 Dose: 10 mg Magnesium Hydroxide (Milk Of Magnesia) 30 ml PO DAILY PRN PRN Reason: Heartburn Stop: 06/14/18 03:31 Magnesium Oxide (Mag-Ox) 400 mg PO BID [facility] Stop: 06/15/18 20:59 Last Admin: 05/17/18 08:54 Dose: 400 mg Methimazole (Tapazole) 10 mg PO QAM [facility] Stop: 06/14/18 11:14 Last Admin: 05/17/18 08:55 Dose: 10 mg Metoprolol Tartrate (Lopressor) 25 mg PO BID [facility] Stop: 06/15/18 09:44 Last Admin: 05/17/18 08:54 Dose: 25 mg Miscellaneous Information (Consult Glycemic Management Pharmacy) 1 ea N/A UD PRN PRN Reason: Consult Stop: 06/14/18 08:10 Multivitamins (Multivitamin Tab) 1 tab PO DAILY [facility] Stop: 06/14/18 11:14 Last Admin: 05/17/18 08:55 Dose: 1 tab Naproxen (Naprosyn) 375 mg PO BID [facility] Stop: 05/17/18 23:00 Last Admin: 05/17/18 08:55 Dose: 375 mg Pantoprazole Sodium (Protonix) 40 mg PO DAILYBB [facility] Stop: 06/15/18 07:59 Last Admin: 05/17/18 08:53 Dose: 40 mg Sodium Chloride (Wanship Nasal) 1 - 2 sprays NA PRN PRN PRN Reason: Nasal Dryness/Congestion Stop: 06/14/18 03:31 Last Admin: 05/15/18 04:44 Dose: 2 sprays Tramadol HCl (Ultram) 50 mg PO Q8H PRN PRN Reason: Pain Stop: 06/14/18 11:03 Last Admin: 05/17/18 02:25 Dose: 50 mg Venlafaxine HCl (Effexor Extended Release) 150 mg PO QAM IAN Stop: 06/16/18 08:59 Last Admin: 05/17/18 08:54 Dose: 150 mg Post Discharge Appointments Primary Care Physician Name Of Family Doctor: RAJNI Batista Primary Care Provider Appointment Comment: [facility], [address], [place] Psychiatrist Name of Psychiatrist: [facility] Psychiatrist's Date of Appointment with Psychiatrist: 05/26/18 Time of Appointment with Psychiatrist: 8:30 a.m. [facility]ment [facility] [place] [place] [address] Therapist Name of Therapist: [facility] Therapist's Date of Therapist Appointment: 05/20/18 Time of Therapist Appointment: 5:30 p.m. 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
--- NOTE | 2018-05-17 13:29 | Hospitalist Progress Note ---
Date of Service May 17, 2018 Assessment & Plan (1) Hypertension: The patients' BPs were markedly elevated at time of admission and then after restarting her IVORY inhibitor and HCTZ, her blood pressures improved rather quickly She admitted to not taking these meds for some time prior to admission. She was then orthostatic on 05/16/18 with SBP drop of about 30 points with standing; however, she is not symptomatic from this. She may have autonomic insufficiency from long-standing, uncontrolled T2DM. Today blood pressures are much improved and she continues to be asymptomatic. There are noted elevated heart rates in the vital signs, but she is within normal rate on my examination today Since uncontrolled DM can lead to dehydration and the HCTZ can also cause volume depletion I would STOP the HCTZ. In its place would use metoprolol 25mg BID. This can ultimately be converted to toprol xl once daily. She is having some trace pedal edema-we will follow and if worsens, consider restarting low-dose HCTZ especially in light of that her blood sugars are better controlled Check orthostatic BPs once/shift. Adjust meds as necessary. -Continue to hold off on the lisinopril (2) Orthostatic hypotension: See discussion above in "HTN." Asymptomatic-seems to be resolved (3) Diabetes mellitus type 2, uncontrolled: Hemoglobin A1c significantly elevated at 15% I appreciate the pharmacy glycemic team efforts. Hyperglycemia is now significantly improved/resolved Consider referral to the [facility] DM clinic after d/c. While here will obtain DM education consult and skein dyer consult as a1c was very high at 15%. Continue basal bolus insulin regimen (4) Hypokalemia: Was low at time of presentation on 05/14/18. Low K likely due to HCTZ use, poor appetite, and wasting from DM. Now resolved (5) Hyperthyroidism: TSH is normal here at 0.475. Cont methimazole 10 mill grams daily She has not seen endocrinology "for years". I advised f/u with endo after discharge for both her hyperthyroidism and her severely uncontrolled diabetes. (6) Major depressive disorder, recurrent severe without psychotic features: defer management to mental health team. It appears her venlafaxine dose has been increased to 150 mg daily -Is on hydroxyzine 50 mg at bedtime as needed for sleep or anxiety and 25 mg p.o. every 4 hours as needed anxiety during the day (7) KEEGAN (acute kidney injury): Creatinine was 1.4 on admission secondary to dehydration likely from severe hyperglycemia as well as taking HCTZ and lisinopril. Creatinine today is resolved back to normal function at 1.0 -Continue holding lisinopril and HCTZ for now (8) Sciatica: Stable and not severe, gait is normal -Continue naproxen and tramadol as needed (9) Dyslipidemia: LFTs were normal on 05/14/18. Continue statin agent as previous. Disposition-plans to remain on the behavioral health unit Hospitalist team will follow along with blood pressures Subjective Patient is feeling very well today. She has noted a little bit of swelling in her ankles since yesterday. She denies headache, chest pain, shortness of breath, or abdominal pain. She denies lightheadedness. She is ambulating around the unit without any difficulty. Patient does report that her left-sided sciatica has flared up since being here. She is taking naproxen and tramadol as needed for this Review of Systems All systems reviewed & are unremarkable except as noted in HPI & below Physical Exam 2 Vital Signs (Past 24 Hours): Last Vital Signs Temp 36.8 C 05/17/18 06:00 Pulse 135 H 05/17/18 07:08 Resp 16 05/17/18 06:00 BP 128/82 05/17/18 07:08 Pulse Ox 99 05/15/18 02:25 Heart rate on my exam was 76 bpm as palpated on the left radial pulse Constitutional: WD/WN, vitals as above Eyes: PERRL, conjunctivae normal, anicteric sclerae ENMT: external ear and nose normal, oropharynx normal Neck: trachea midline, no thyromegaly Respiratory: normal respiratory effort, lungs clear to auscultation Cardiovascular: RRR, no murmur, no edema (Except perhaps very trace edema of the feet bilaterally) Vessels: dorsalis pedis pulses present and radial pulses present Gastrointestinal (Abdomen): normal bowel sounds, soft, nontender, no hepatosplenomegaly Musculoskeletal: Extremities: extremities normal to inspection; no cyanosis and no clubbing Skin: no rashes, warm and dry Neurologic: moves all extremities and awake; no focal motor deficits Psychiatric: A+Ox3, euthymic affect Results & Data Laboratory Results 05/17/18 05/17/18 05/17/18 Range/Units 12:39 08:20 07:15 Sodium 137 (136-145) mmol/L Potassium 4.4 (3.5-5.1) mmol/L Chloride 105 (98-107) mmol/L Carbon Dioxide 25 (21-32) mmol/L Anion Gap 7.0 (3-11) BUN 33 H (7-18) mg/dl Creatinine 1.00 D (0.6-1.2) mg/dl Est Cr Clr Drug Dosing 46.2 ml/min Est GFR ( Amer) 67.0 Est GFR (Non-Af Amer) 57.8 BUN/Creatinine Ratio 33.1 H (10-20) Glucose 165 H (70-99) mg/dl POC Glucose 165 H 155 H (70-99) Calcium 9.1 (8.5-10.1) mg/dl Magnesium (1.8-2.4) mg/dl Beta-Hydroxybutyric Acd (0.2-2.81) mg/dl 05/17/18 05/16/18 05/16/18 Range/Units 00:32 20:42 18:45 Sodium 132 L D (136-145) mmol/L Potassium 4.9 D (3.5-5.1) mmol/L Chloride 98 (98-107) mmol/L Carbon Dioxide 27 (21-32) mmol/L Anion Gap 7.0 (3-11) BUN 35 H D (7-18) mg/dl Creatinine 1.40 H D (0.6-1.2) mg/dl Est Cr Clr Drug Dosing 33.0 ml/min Est GFR ( Amer) 44.6 Est GFR (Non-Af Amer) 38.5 BUN/Creatinine Ratio 25.3 H (10-20) Glucose 327 H (70-99) mg/dl POC Glucose 144 H 241 H (70-99) Calcium 9.6 (8.5-10.1) mg/dl Magnesium 1.7 L (1.8-2.4) mg/dl Beta-Hydroxybutyric Acd 2.55 (0.2-2.81) mg/dl 05/16/18 Range/Units 17:00 Sodium (136-145) mmol/L Potassium (3.5-5.1) mmol/L Chloride (98-107) mmol/L Carbon Dioxide (21-32) mmol/L Anion Gap (3-11) BUN (7-18) mg/dl Creatinine (0.6-1.2) mg/dl Est Cr Clr Drug Dosing ml/min Est GFR ( Amer) Est GFR (Non-Af Amer) BUN/Creatinine Ratio (10-20) Glucose (70-99) mg/dl POC Glucose 181 H (70-99) Calcium (8.5-10.1) mg/dl Magnesium (1.8-2.4) mg/dl Beta-Hydroxybutyric Acd (0.2-2.81) mg/dl _ (1) Hypertension Hypertension type: unspecified Qualified Code(s): I10 - Essential (primary) hypertension (2) Diabetes mellitus type 2, uncontrolled Glycemic state: with hyperglycemia Coma presence: Qualified Code(s): E11.65 - Type 2 diabetes mellitus with hyperglycemia
--- NOTE | 2018-05-17 15:06 | Pharmacy Report ---
Pharmacy Glycemic Short Note 2 - Date of Service May 17, 2018 - Glycemic Short BSG Results (Last 24 hours): 05/16/18 05/16/18 05/16/18 17:00 18:45 20:42 Glucose 327 H POC Glucose 181 H 241 H 05/17/18 05/17/18 05/17/18 00:32 07:15 08:20 Glucose 165 H POC Glucose 144 H 155 H 05/17/18 12:39 Glucose POC Glucose 165 H ASSESSMENT: * Ms. Mei received 113 units of SQ insulin yesterday with majority of BSGs above goal, however significant improvement seen compared to values on 05/15. * Fasting BSG of 155 mg/dL is near goal. Will continue to titrate basal insulin. A slow down-titration in sugars is advisable due to significantly elevated A1C. * Post prandial BSGs are improving but remain above goal. I will slightly tighten correction factor. PLAN FOR INPATIENT GLYCEMIC CONTROL: * Hold outpatient oral diabetes medications * Basal insulin * Lantus scale SQ BID * 30 units for BSGs <200mg/dL * 35 units for BSGs >/=200mg/dL * Bolus insulin - tighten CF * NovoLog per scale ACHS or Q6hrs while NPO * Goal Range: Low 110 mg/dL - High 140 mg/dL * Correction Factor: 18 mg/dL/unit * Nutritional / Prandial insulin per carb ratio of 1 unit per 5 grams CHO consumed PlAN FOR DISCHARGE: * A1c extremely elevated; 15.4% * Recommend referral to [facility] outpatient clinic for additional education/dose adjustment * From CDE progress note: * Try to Check Your Blood Sugar Before Meals and Bedtime. Encourage You to Look into The [employer]arek Monitoring System (No Finger Sticks). If Interested, Call for Additional Information and Insurance
[2018-05-17] MEDS: ATORVASTATIN 40 MG TAB PO SCH (21:15)
[2018-05-18] MEDS: TRAMADOL HCL 50 MG TABLET PO PRN (01:21)
[2018-05-18] MEDS: ACETAMINOPHEN 325 MG TAB PO PRN (01:22)
[2018-05-18] MEDS: ASPIRIN 81 MG ECTAB PO SCH (08:57)
[2018-05-18] MEDS: VENLAFAXINE HCL XR 75 MG CAPXR PO SCH (08:57)
[2018-05-18] MEDS: PANTOprazole 40 MG TAB PO SCH (08:57)
[2018-05-18] MEDS: METOPROLOL TARTRATE 25 MG TAB PO SCH (08:57)
[2018-05-18] MEDS: methIMAzole 5 MG TABLET PO SCH (08:58)
[2018-05-18] MEDS: MAGNESIUM OXIDE 400 MG TAB PO SCH ×2 (08:58→21:15)
[2018-05-18] MEDS: MULTIVITAMIN TAB PO SCH (08:58)
[2018-05-18] MEDS: INSULIN GLARGINE SOLOSTAR 100 UNITS/ML 3 ML PEN SC SCH ×2 (09:08→21:23)
[2018-05-18] MEDS: INSULIN ASPART 100 UNITS/ML 3 ML PEN SC SCH ×4 (09:10→21:20)
--- NOTE | 2018-05-18 12:53 | Hospitalist Progress Note ---
Date of Service May 18, 2018 Assessment & Plan (1) Hypertension: The patients' BPs were markedly elevated at time of admission and then after restarting her IVORY inhibitor and HCTZ, her blood pressures improved rather quickly She admitted to not taking these meds for some time prior to admission-0approx 1 -2 months. She was then orthostatic on 05/16/18 with SBP drop of about 30 points with standing; however, she is not symptomatic from this. She may have autonomic insufficiency from long-standing, uncontrolled T2DM. Today blood pressures are much improved and she continues to be asymptomatic. Still with mildly positive orthostatics yesterday but lowest was 120s systolic on standing Since uncontrolled DM can lead to dehydration and the HCTZ can also cause volume depletion I have STOPPED the HCTZ. -started metoprolol 25mg BID and will convert to Toprol xl 50mg daily tomorrow She is having some trace pedal edema that is very insignificant-secondary to being off HCTZ -will restart lisinopril at 5mg daily today for improved BP control and also for renal protective effect in the setting of DMII and CKD Stage II-III -continue daily BP checks especially with starting Toprol XL tomorrow (2) Orthostatic hypotension: See discussion above in "HTN." Asymptomatic-seems to be resolved for the most part (3) Diabetes mellitus type 2, uncontrolled: Hemoglobin A1c significantly elevated at 15%. Has been noncompliant with home meds I appreciate the pharmacy glycemic team efforts. Hyperglycemia is now significantly improved/resolved Consider referral to the [facility] DM clinic after d/c. While here will obtain DM education consult and leaf stripper consult as a1c was very high at 15%. Continue basal bolus insulin regimen as per Pharmacy recommendations -restarting ACEi now, continues with improved BP control -is on statin appropriately -needs routine outpt f/u and Ophthalmology annual screening for retinopathy -does have some proteinuria nd will need f/u on this as outpt as well (4) Hypokalemia: Was low at time of presentation on 05/14/18. Low K likely due to HCTZ use, poor appetite, and wasting from DM. Now resolved -will NOT restart HCTZ (5) Hyperthyroidism: TSH is normal here at 0.475. Cont methimazole 10 mill grams daily She has not seen endocrinology "for years". I advised f/u with endo after discharge for both her hyperthyroidism and her severely uncontrolled diabetes. (6) Major depressive disorder, recurrent severe without psychotic features: defer management to mental health team. It appears her venlafaxine dose has been increased to 150 mg daily -Is on hydroxyzine 50 mg at bedtime as needed for sleep or anxiety and 25 mg p.o. every 4 hours as needed anxiety during the day (7) KEEGAN (acute kidney injury): Creatinine was 1.4 on admission secondary to dehydration likely from severe hyperglycemia as well as taking HCTZ and lisinopril. Creatinine then back to normal function at 1.0 -restarting lisinopril today at lower dose 5mg daily -will NOT restart HCTZ (8) Sciatica: Stable and not severe, gait is normal -Continue tramadol as needed -agree with discontinuing naproxen insetting of CKD Stage II-III and recent KEEGAN (9) Dyslipidemia: LFTs were normal on 05/14/18. Continue statin agent as previous. (10) CKD (chronic kidney disease) stage 3, GFR 30-59 ml/min: GFR in stage II-III range, with some proteinuria, secondary to HTN and DMII -avoid nephrooxins -renally dose meds as appropriate -restarting lisinopril -f/u with PCP after discharge Disposition-plans to remain on the behavioral health unit Hospitalist team will sign off at this time as doing well from a medical standpoint. Please re-consult or call with any acute concerns or questions. Subjective Pt feeling very well today. She denies lightheadedness or headache. denies CP or SOB. No abd pain or nausea. She denies palpitations. Blood glucose and BPs both significantly improved. Review of Systems All systems reviewed & are unremarkable except as noted in HPI & below Physical Exam 2 Vital Signs (Past 24 Hours): Last Vital Signs Temp 36.7 C 05/18/18 07:05 Pulse 97 H 05/18/18 07:09 Resp 18 05/18/18 07:05 BP 120/84 05/18/18 07:09 Pulse Ox 99 05/15/18 02:25 Constitutional: WD/WN, vitals as above Eyes: PERRL, conjunctivae normal, anicteric sclerae ENMT: external ear and nose normal, oropharynx normal Neck: trachea midline, no thyromegaly Respiratory: normal respiratory effort; no labored breathing Cardiovascular: Rate/Rhythm: regular rate and regular rhythm Vessels: dorsalis pedis pulses present and radial pulses present Gastrointestinal (Abdomen): Inspection/Auscultation: abdomen normal to inspection; abdomen not distended Percussion/Palpation: abdomen soft; abdomen nontender and no guarding Musculoskeletal: Extremities: extremities normal to inspection; no cyanosis and no clubbing Skin: no rashes, warm and dry Neurologic: moves all extremities and awake; no focal motor deficits Psychiatric: Orientation: alert, oriented x 3 and cooperative Results & Data Laboratory Results 05/18/18 05/17/18 05/17/18 Range/Units 08:25 21:09 17:25 POC Glucose 97 130 H 116 H (70-99) _ (1) Hypertension Hypertension type: unspecified Qualified Code(s): I10 - Essential (primary) hypertension (2) Diabetes mellitus type 2, uncontrolled Glycemic state: with hyperglycemia Coma presence: Qualified Code(s): E11.65 - Type 2 diabetes mellitus with hyperglycemia
[2018-05-18] MEDS ORDERED: METOPROLOL TARTRATE 25 MG TAB PO SCH (12:55)
[2018-05-18] MEDS ORDERED: LISINOPRIL 5 MG TAB PO SCH (13:00)
--- NOTE | 2018-05-18 14:25 | Pharmacy Report ---
Pharmacy Glycemic Short Note 2 - Date of Service May 18, 2018 - Glycemic Short BSG Results (Last 24 hours): 05/17/18 05/17/18 05/18/18 17:25 21:09 08:25 POC Glucose 116 H 130 H 97 ASSESSMENT: * Ms. Mei received 94 units of SQ insulin yesterday with adequate glycemic control. * Fasting BSG of 97 mg/dL is at goal. I will slightly decrease basal insulin scale since fasting decreased from 155 on 05/17 to 97 mg/dL today. * Post prandial BSGs are much improved. No changes will be made to Novolog today. PLAN FOR INPATIENT GLYCEMIC CONTROL: * Basal insulin - slight decrease * Lantus scale SQ BID * 25 units for BSGs < 140mg/dL * 30 units for BSGs >/= 140mg/dL * Bolus insulin * NovoLog per scale ACHS or Q6hrs while NPO * Goal Range: Low 110 mg/dL - High 140 mg/dL * Correction Factor: 18 mg/dL/unit * Nutritional / Prandial insulin per carb ratio of 1 unit per 5 grams CHO consumed PlAN FOR DISCHARGE: * A1c extremely elevated; 15.4% * Recommend referral to [facility] outpatient clinic for additional education/dose adjustment * From CDE progress note: * Try to Check Your Blood Sugar Before Meals and Bedtime. Encourage You to Look into The [employer] Monitoring System (No Finger Sticks). If Interested, Call for Additional Information and Insurance
--- NOTE | 2018-05-18 16:46 | Psychiatric Progress Note ---
Date of Service May 18, 2018 Impression / Recommendations Impression Patient appears to be brighter in affect and less depressed. she is tolerating effexor XR 150mg and I am sure that better blood sugar control and management of her medical concerns are helping her wellbeing as well. Hopeful for family meeting to involve supports and determine aftercare arrangements which promote compliance. (1) Major depressive disorder, recurrent severe without psychotic features: 05/15 - Restart Effexor XR 75 mg daily titrating as tolerated - Supplemental information from - Explore barriers to accepting psychiatric follow up - Q 15 min checks for safety - Encourage participation in group and individual therapy - Explore healthy coping strategies - Family meeting if indicated. - Safety planning - Aftercare planning 05/16 - Titration of venlafaxine ER to 150mg starting tomorrow morning - Continue attempts to gather collateral information - Ideally will have family meeting with support prior to discharge - Pt encouraged to explore coping skills and arrangements which may help her to better mange these next few difficult months. Encouraged to ask for assistance from therapists as necessary. 05/17 and 05/18 - continue with plan as noted above (2) Diabetes mellitus type 2, uncontrolled: 05/15 - Consult diabetic pharmacist to help manage diabetes - Will consult [facility] hospitalists to assist with all of medical conditions - BSG's AC/HS 05/16 through 05/18 - Glucose remains elevated, but improved compared to admission appreciate help of pharmacy with patient's management (3) Hypertension: 05/15 - Clarify meds with Dr. Batista's office - Will consult [facility] hospitalists to assist with all medical problems - Jan BP - BP declining since resuming home medications - continue to monitor 05/17 and 05/18 - appreciate managment by internal medicine, orthostasis today so discussed slow positional changes (4) Hyperthyroidism: 05/15 - TSH - Consult [facility] hospitalists to assist with all medical problems (5) HNP (herniated nucleus pulposus), lumbar: 05/15 - Will order 3 days of naproxen 375 mg BID to reduce inflamation - Had been using Tramadol as an OP. - Will consult [facility] hospitalists to assist with all medical problems. 05/18 - consider volteran gel or lidocaine patch as additional strategy , discussed with pharmacy given she is on a baby aspirin will try lidocaine patch first and if no releif cautiously switch to voleteran gel Inventory Assets Strengths: Lives with who is supportive, willingness to engage in treatment Needs: Consistent follow-through with aftercare appointments Risk Factors Assessment Male: No : Yes Do You Have Access To A Gun?: No Health Problems: Yes Mental Health Diagnoses: Yes Substance Use Disorders: No Previous Attempt: No Family History of Suicide: Yes Previous Psychiatric Hospitalization: Yes Hopelessness: No Smoker: No Protective Factors Assessment Rastafarian Beliefs: Yes : Yes Responsible for Young Children: No Employed: No Stable Relationships: Yes Supportive Family: Yes Interval History Identifying Information CRISS LEGGETT is a 67-year-old F who presented to our emergency department yesterday with complaints of severe depression in the setting of the loss of a daughter several years ago. The patient is admitted voluntarily. Information is gathered from the patient and considered to be reliable. Chief Complaint "I think I am doing much better". Review of Systems Sleep Information Total Hours of Sleep: 4.5 Sleep Comments: Patient had requested and received vistaril prior to bed on 3 to 11. This was not effective due to pain. Patient has tried position changes , no change to pain. Meal Information Percent Meal Consumed - Breakfast: 100 Percent Meal Consumed - Lunch: 100 Percent Meal Consumed - Dinner: 100 Subjective Subjective Patient was seen & assessed and interval progress reviewed with Nursing Patient is contiuing not to sleep well due to sciatic pain, despite use of warm pad, tramadol and tylenol. At home she goes to the chiropractor when sciatic pain is flaring. She was on naproxen for first few days of admission but that stopped at day3 as per the ordering PA. Met with patient who enjoyed a long visit with her dtr Noé states her mood is improved since being here. She has limited insight to her poor f/u in the past for care and self care. She does state she plans to get a pill box to help her be more consistent with medications She is motivated to do her insulin daily She denies SI, intention or plan, rates mood as 8/10 and states she is not acutely anxious. Physical Exam Psychiatric A+Ox3, euthymic affect Orientation: alert, oriented x 3 and cooperative Apperance: appropriately dressed and appropriately groomed Eye Contact: good eye contact Motor Behavior: steady gait and station and no abnormal motor movements Speech: normal rate/rhythm/volume of speech Affect: euthymic affect "good" Thought Process: goal directed thought process and clear/coherent thought process Thought Content: reality based without delusions Suicidal Thoughts: denies suicidal thoughts Homicidal Thoughts: denies homicidal thoughts Hallucinations: no auditory hallucinations and no visual hallucinations Cognition: recent memory grossly intact, attention grossly intact and language grossly intact; + remote memory not intact (somewhat intact, stated today that she had never stopped her medications) Estimated Intelligence: average estimated intelligence Insight: + fair insight Judgement: + fair judgement Vital Signs (Past 24 Hours) Last Vital Signs Temp 36.7 C 05/18/18 07:05 Pulse 97 H 05/18/18 07:09 Resp 18 05/18/18 07:05 BP 120/84 05/18/18 07:09 Pulse Ox 99 05/15/18 02:25 Results & Data Laboratory Results Laboratory Results - last 24 hr 05/17/18 05/17/18 05/18/18 17:25 21:09 08:25 POC Glucose 116 H 130 H 97 Current Inpatient Medications Current Inpatient Medications: Current Inpatient Medications Acetaminophen (Tylenol) 650 mg PO Q4H PRN PRN Reason: Headache or Minor Fever Stop: 06/14/18 03:31 Last Admin: 05/18/18 01:22 Dose: 650 mg Al Hydrox/Mg Hydrox/Simethicone (Maalox) 30 ml PO Q4H PRN PRN Reason: GI Upset Stop: 06/14/18 03:31 Last Admin: 05/15/18 03:45 Dose: 30 ml Aspirin (Ecotrin Ectab) 81 mg PO QAM IAN Stop: 06/14/18 11:14 Last Admin: 05/18/18 08:57 Dose: 81 mg Atorvastatin Calcium (Lipitor) 40 mg PO HS IAN Stop: 06/14/18 21:59 Last Admin: 05/17/18 21:15 Dose: 40 mg Bismuth Subsalicylate (Kaopectate) 15 ml PO PRN PRN PRN Reason: Loose Stool Stop: 06/14/18 03:31 Hydroxyzine HCl (Vistaril) 50 mg PO HSZ PRN PRN Reason: Insomnia Stop: 06/14/18 03:31 Last Admin: 05/17/18 21:24 Dose: 50 mg Hydroxyzine HCl (Vistaril) 25 mg PO Q4H PRN PRN Reason: Anxiety Stop: 06/14/18 03:31 Last Admin: 05/17/18 00:40 Dose: 25 mg Insulin Aspart (Novolog Flexpen) 0 units SC ACHS [facility] Stop: 06/14/18 08:44 Last Admin: 05/18/18 13:13 Dose: 14 units Insulin Glargine (Lantus Solostar Pen) 0 units SC BID [facility]; Protocol Stop: 06/14/18 20:59 Last Admin: 05/18/18 09:08 Dose: 25 units Lisinopril (Zestril) 5 mg PO QAM [facility] Stop: 06/17/18 12:59 Magnesium Hydroxide (Milk Of Magnesia) 30 ml PO DAILY PRN PRN Reason: Heartburn Stop: 06/14/18 03:31 Magnesium Oxide (Mag-Ox) 400 mg PO BID [facility] Stop: 06/15/18 20:59 Last Admin: 05/18/18 08:58 Dose: 400 mg Methimazole (Tapazole) 10 mg PO QAM [facility] Stop: 06/14/18 11:14 Last Admin: 05/18/18 08:58 Dose: 10 mg Metoprolol Succinate (Toprol Xl) 50 mg PO QAM [facility] Stop: 06/18/18 08:59 Metoprolol Tartrate (Lopressor) 25 mg PO BID [facility] Stop: 05/18/18 23:59 Miscellaneous Information (Consult Glycemic Management Pharmacy) 1 ea N/A UD PRN PRN Reason: Consult Stop: 06/14/18 08:10 Multivitamins (Multivitamin Tab) 1 tab PO DAILY [facility] Stop: 06/14/18 11:14 Last Admin: 05/18/18 08:58 Dose: 1 tab Pantoprazole [facility] ([facility]) [facility] Stop: 06/15/18 07:59 Last Admin: 05/18/18 08:57 Dose: 40 mg Sodium Chloride ([place] Nasal) 1 - 2 sprays NA PRN PRN PRN Reason: Nasal Dryness/Congestion Stop: 06/14/18 03:31 Last Admin: 05/15/18 04:44 Dose: 2 sprays Tramadol HCl (Ultram) 50 mg PO Q8H PRN PRN Reason: Pain Stop: 06/14/18 11:03 Last Admin: 05/18/18 01:21 Dose: 50 mg Venlafaxine HCl (Effexor Extended Release) 150 mg PO QAM IAN Stop: 06/16/18 08:59 Last Admin: 05/18/18 08:57 Dose: 150 mg Post Discharge Appointments Primary Care Physician Name Of Family Doctor: RAJNI Batista Primary Care Provider Appointment Comment: [address] [facility], [facility] [address], [place] [address] Psychiatrist Name of Psychiatrist: [facility] Psychiatrist's Date of Appointment with Psychiatrist: 05/26/18 Time of Appointment with Psychiatrist: 8:30 a.m. Psychiatric Appointment Comment: [address] [facility], [place] [address] Therapist Name of Therapist: [facility] Therapist's Date of Therapist Appointment: 05/20/18 Time of Therapist Appointment: 5:30 p.m. (please arrive 15 minutes early) Therapy Appointment Comment: [address] [place] [address] Junior Automation Engineer Name of Junior Automation Engineer: None Contact Information Discharge Discharge Address: [address] [place] [address] [place] [id number] CPT Code CPT Code 73882 _ (1) Diabetes mellitus type 2, uncontrolled Glycemic state: with hyperglycemia Coma presence: Qualified Code(s): E11.65 - Type 2 diabetes mellitus with hyperglycemia (2) Hypertension Hypertension type: unspecified Qualified Code(s): I10 - Essential (primary) hypertension
[2018-05-18] MEDS: ATORVASTATIN 40 MG TAB PO SCH (21:15)
[2018-05-18] MEDS: LIDOCAINE 5% 1 PATCH TD SCH (21:16)
[2018-05-19] MEDS: ACETAMINOPHEN 325 MG TAB PO PRN ×2 (01:30→08:50)
[2018-05-19] MEDS: TRAMADOL HCL 50 MG TABLET PO PRN (01:31)
[2018-05-19] MEDS: PANTOprazole 40 MG TAB PO SCH (08:47)
[2018-05-19] MEDS: ASPIRIN 81 MG ECTAB PO SCH (08:47)
[2018-05-19] MEDS: MAGNESIUM OXIDE 400 MG TAB PO SCH ×2 (08:48→21:20)
[2018-05-19] MEDS: VENLAFAXINE HCL XR 75 MG CAPXR PO SCH (08:48)
[2018-05-19] MEDS: methIMAzole 5 MG TABLET PO SCH (08:48)
[2018-05-19] MEDS: METOPROLOL SUCC 50MG EXT REL TAB PO SCH (08:48)
[2018-05-19] MEDS: MULTIVITAMIN TAB PO SCH (08:48)
[2018-05-19] MEDS: INSULIN ASPART 100 UNITS/ML 3 ML PEN SC SCH ×4 (09:12→21:27)
[2018-05-19] MEDS: INSULIN GLARGINE SOLOSTAR 100 UNITS/ML 3 ML PEN SC SCH ×3 (09:16→21:36)
--- NOTE | 2018-05-19 10:59 | Psychiatric Progress Note ---
Date of Service May 19, 2018 Impression / Recommendations Impression Struggling with a KOHLER today, but states that she is feeling better. continues to find barriers to follow up including endocrinology. Will plan to discharge tomorrow before 0900 endocrine appt so can take her directly there. (1) Major depressive disorder, recurrent severe without psychotic features: 05/15 - Restart Effexor XR 75 mg daily titrating as tolerated - Supplemental information from - Explore barriers to accepting psychiatric follow up - Q 15 min checks for safety - Encourage participation in group and individual therapy - Explore healthy coping strategies - Family meeting if indicated. - Safety planning - Aftercare planning 05/16 - Titration of venlafaxine ER to 150mg starting tomorrow morning - Continue attempts to gather collateral information - Ideally will have family meeting with support prior to discharge - Pt encouraged to explore coping skills and arrangements which may help her to better mange these next few difficult months. Encouraged to ask for assistance from therapists as necessary. 05/17 and 05/18 - continue with plan as noted above 05/19 - Plan on DC tomorrow to attend 0900 endocrine appt (2) Diabetes mellitus type 2, uncontrolled: 05/15 - Consult diabetic pharmacist to help manage diabetes - Will consult [facility] hospitalists to assist with all of medical conditions - BSG's AC/HS 05/16 through 05/18 - Glucose remains elevated, but improved compared to admission appreciate help of pharmacy with patient's management (3) Hypertension: 05/15 - Clarify meds with Dr. Batista's office - Will consult [facility] hospitalists to assist with all medical problems - [place] BP - BP declining since resuming home medications - continue to monitor 05/17 and 05/18 - appreciate managment by internal medicine, orthostasis today so discussed slow positional changes (4) Hyperthyroidism: 05/15 - TSH - Consult [facility] hospitalists to assist with all medical problems (5) HNP (herniated nucleus pulposus), lumbar: 05/15 - Will order 3 days of naproxen 375 mg BID to reduce inflamation - Had been using Tramadol as an OP. - Will consult [facility] hospitalists to assist with all medical problems. 05/18 - consider volteran gel or lidocaine patch as additional strategy , discussed with pharmacy given she is on a baby aspirin will try lidocaine patch first and if no releif cautiously switch to voleteran gel Inventory Assets Strengths: Lives with who is supportive, willingness to engage in treatment Needs: Consistent follow-through with aftercare appointments Risk Factors Assessment Male: No : Yes Do You Have Access To A Gun?: No Health Problems: Yes Mental Health Diagnoses: Yes Substance Use Disorders: No Previous Attempt: No Family History of Suicide: Yes Previous Psychiatric Hospitalization: Yes Hopelessness: No Smoker: No Protective Factors Assessment Judaism Beliefs: Yes : Yes Responsible for Young Children: No Employed: No Stable Relationships: Yes Supportive Family: Yes Interval History Identifying Information CRISS LEGGETT is a 67-year-old F who presented to our emergency department yesterday with complaints of severe depression in the setting of the loss of a daughter several years ago. The patient is admitted voluntarily. Information is gathered from the patient and considered to be reliable. Chief Complaint "I woke up with a headache.". Review of Systems Sleep Information Total Hours of Sleep: 7.75 Sleep Comments: Patient had requested and received vistaril prior to bed on 3 to 11. This was not effective due to pain. Patient has tried position changes , no change to pain. Meal Information Percent Meal Consumed - Breakfast: 100 Percent Meal Consumed - Lunch: 100 Percent Meal Consumed - Dinner: 100 Subjective Subjective Patient was seen & assessed and interval progress reviewed with Treatment Team. The patient says that she is doing "OK", but woke with a KOHLER today, which is affecting her mood. She rates her mood 5/10. she reports that she had a meeting with her and daughter over the weekend and talked about "a lot of things" including the fact that she feels she needs a break from her once in a while. They have been X 50 years, but since he retired she feels she needs some time away from him, which says he was fine with. We discuss the importance of follow up appts for both her medical and psychiatric care. She declined the offer of an endocrinology appt tomorrow, saying that she wasn't sure if her or her daughter would be available to drive her, but was willing to consider discharge tomorrow AM, to go directly to the appt. She also says that psychiatric follow will be easier since she is being referred to a clinic in [place]. She denies any SI/HI. Physical Exam Psychiatric Orientation: alert, oriented x 3 and cooperative Apperance: appropriately dressed (in pajamas) Eye Contact: good eye contact Motor Behavior: steady gait and station and no abnormal motor movements Speech: normal rate/rhythm/volume of speech Affect: + flat affect Rated 5/10, affected by KOHLER Thought Process: goal directed thought process Thought Content: reality based without delusions Suicidal Thoughts: denies suicidal thoughts Homicidal Thoughts: denies homicidal thoughts Hallucinations: no auditory hallucinations and no visual hallucinations Cognition: recent memory grossly intact, remote memory grossly intact, attention grossly intact and language grossly intact Estimated Intelligence: consistent with education level Insight: + limited insight Judgement: + limited judgement Vital Signs (Past 24 Hours) Last Vital Signs Temp 36.9 C 05/19/18 07:17 Pulse 108 H 05/19/18 07:19 Resp 16 05/19/18 07:17 BP 109/76 05/19/18 07:19 Pulse Ox 99 05/15/18 02:25 Results & Data Laboratory Results Laboratory Results - last 24 hr 05/18/18 05/18/18 05/18/18 12:32 17:19 20:56 POC Glucose 153 H 160 H 138 H Current Inpatient Medications Current Inpatient Medications: Current Inpatient Medications Acetaminophen (Tylenol) 650 mg PO Q4H PRN PRN Reason: Headache or Minor Fever Stop: 06/14/18 03:31 Last Admin: 05/19/18 08:50 Dose: 650 mg Al Hydrox/Mg Hydrox/Simethicone (Maalox) 30 ml PO Q4H PRN PRN Reason: GI Upset Stop: 06/14/18 03:31 Last Admin: 05/15/18 03:45 Dose: 30 ml Aspirin (Ecotrin Ectab) 81 mg PO QAM IAN Stop: 06/14/18 11:14 Last Admin: 05/19/18 08:47 Dose: 81 mg Atorvastatin Calcium (Lipitor) 40 mg PO HS IAN Stop: 06/14/18 21:59 Last Admin: 05/18/18 21:15 Dose: 40 mg Bismuth Subsalicylate (Kaopectate) 15 ml PO PRN PRN PRN Reason: Loose Stool Stop: 06/14/18 03:31 Hydroxyzine HCl (Vistaril) 50 mg PO HSZ PRN PRN Reason: Insomnia Stop: 06/14/18 03:31 Last Admin: 05/17/18 21:24 Dose: 50 mg Hydroxyzine HCl (Vistaril) 25 mg PO Q4H PRN PRN Reason: Anxiety Stop: 06/14/18 03:31 Last Admin: 05/17/18 00:40 Dose: 25 mg Insulin Aspart (Novolog Flexpen) 0 units SC ACHS [facility] Stop: 06/14/18 08:44 Last Admin: 05/19/18 09:12 Dose: 10 units Insulin Glargine (Lantus Solostar Pen) 0 units SC BID [facility]; Protocol Stop: 06/14/18 20:59 Last Admin: 05/19/18 09:16 Dose: 20 units Lidocaine (Lidoderm 5%) 1 patch TD HS [facility] Stop: 06/17/18 21:59 Last Admin: 05/18/18 21:16 Dose: 1 patch Lisinopril (Zestril) 5 mg PO QAM [facility] Stop: 06/17/18 12:59 Last Admin: 05/19/18 08:49 Dose: 5 mg Magnesium Hydroxide (Milk Of Magnesia) 30 ml PO DAILY PRN PRN Reason: Heartburn Stop: 06/14/18 03:31 Magnesium Oxide (Mag-Ox) 400 mg PO BID [facility] Stop: 06/15/18 20:59 Last Admin: 05/19/18 08:48 Dose: 400 mg Methimazole (Tapazole) 10 mg PO QAM [facility] Stop: 06/14/18 11:14 Last Admin: 05/19/18 08:48 Dose: 10 mg Metoprolol Succinate (Toprol Xl) 50 mg PO QAM [facility] Stop: 06/18/18 08:59 Last Admin: 05/19/18 08:48 Dose: 50 mg Miscellaneous (Remove Lidoderm Patch) 1 ea N/A DAILY@0800 [facility] Stop: 06/18/18 07:59 Last Admin: 05/19/18 09:27 Dose: 1 ea Miscellaneous Information (Consult Glycemic Management Pharmacy) 1 ea N/A UD PRN PRN Reason: Consult Stop: 06/14/18 08:10 Multivitamins (Multivitamin Tab) 1 tab PO DAILY [facility] Stop: 06/14/18 11:14 Last Admin: 05/19/18 08:48 Dose: 1 tab Pantoprazole Sodium (Protonix) 40 mg PO DAILYBB [facility] Stop: 06/15/18 07:59 Last Admin: 05/19/18 08:47 Dose: 40 mg Sodium Chloride ([place] Nasal) 1 - 2 sprays NA PRN PRN PRN Reason: Nasal Dryness/Congestion Stop: 06/14/18 03:31 Last Admin: 05/15/18 04:44 Dose: 2 sprays Tramadol HCl (Ultram) 50 mg PO Q8H PRN PRN Reason: Pain Stop: 06/14/18 11:03 Last Admin: 05/19/18 01:31 Dose: 50 mg Venlafaxine HCl (Effexor Extended Release) 150 mg PO QAM IAN Stop: 06/16/18 08:59 Last Admin: 05/19/18 08:48 Dose: 150 mg Post Discharge Appointments Primary Care Physician Name Of Family Doctor: RAJNI Batista/ [facility] Date of Appointment with PCP: 05/26/18 Time of Appointment with PCP: 10:20 Provider Appointment Comment: [address] [facility], [facility] [address] [id number] Psychiatrist Name of Psychiatrist: [facility] Psychiatrist's Date of Appointment with Psychiatrist: 05/26/18 Time of Appointment with Psychiatrist: 8:30 a.m. Psychiatric Appointment Comment: [address] [place] [address] Therapist Name of Therapist: [facility] Therapist's Date of Therapist Appointment: 05/20/18 Time of Therapist Appointment: 5:30 p.m. (please arrive 15 minutes early) Therapy Appointment Comment: [address] [place] [address] Election Judge Name of Election Judge: None Specialist Name of Specialist: Alicia Nuñez ([address] [facility]) Phone Number for Specialist: [phone] Date of Appointment with Specialist: 05/20/18 Time of Appointment with Specialist: 9am Specialty Appointment Comment: if unable to make appt, call first thing in am to cancel, Contact Information Discharge Discharge Address: [address] [place] [address] [place] [id number] CPT Code CPT Code 85459 _ (1) Diabetes mellitus type 2, uncontrolled Coma presence: Glycemic state: with hyperglycemia Qualified Code(s): E11.65 - Type 2 diabetes mellitus with hyperglycemia (2) Hypertension Hypertension type: unspecified Qualified Code(s): I10 - Essential (primary) hypertension
--- NOTE | 2018-05-19 14:03 | Pharmacy Report ---
Pharmacy Glycemic Short Note 2 - Date of Service May 19, 2018 - Glycemic Short BSG Results (Last 24 hours): 05/18/18 05/18/18 05/18/18 12:32 17:19 20:56 POC Glucose 153 H 160 H 138 H ASSESSMENT: 05/19 * Received 90 units of SQ insulin yesterday with adequate glycemic control * Fasting BSG 82 mg/dL trending down. Will continue lantus decrease * Post prandial BSGs are improved. No changes needed today. 05/18 * Ms. Mei received 94 units of SQ insulin yesterday with adequate glycemic control. * Fasting BSG of 97 mg/dL is at goal. I will slightly decrease basal insulin scale since fasting decreased from 155 on 05/17 to 97 mg/dL today. * Post prandial BSGs are much improved. No changes will be made to Novolog today. PLAN FOR INPATIENT GLYCEMIC CONTROL: * Basal insulin - slight decrease * Lantus scale SQ BID * 15 units for BSGs < 140mg/dL * 20 units for BSGs >/= 140mg/dL * Bolus insulin * NovoLog per scale ACHS or Q6hrs while NPO * Goal Range: Low 110 mg/dL - High 140 mg/dL * Correction Factor: 18 mg/dL/unit * Nutritional / Prandial insulin per carb ratio of 1 unit per 5 grams CHO consumed PlAN FOR DISCHARGE: * A1c extremely elevated; 15.4% * Recommend referral to [facility] outpatient clinic for additional education/dose adjustment * From CDE progress note: * Try to Check Your Blood Sugar Before Meals and Bedtime. Encourage You to Look into The [employer] [place]arek Monitoring System (No Finger Sticks). If Interested, Call for Additional Information and Insurance
[2018-05-19] MEDS: ATORVASTATIN 40 MG TAB PO SCH (21:20)
[2018-05-19] MEDS: LIDOCAINE 5% 1 PATCH TD SCH ×2 (21:20→21:38)
[2018-05-20] MEDS: ACETAMINOPHEN 325 MG TAB PO PRN (03:15)
[2018-05-20] MEDS: TRAMADOL HCL 50 MG TABLET PO PRN (03:15)
--- NOTE | 2018-05-20 08:53 | Discharge Summary ---
Date of Service May 20, 2018 History of Present Illness Elida is a 67-year-old woman with medical conditions including diabetes, hypertension, hyperthyroidism, dyslipidemia and history of a ruptured disc, who was also hospitalized on our mental health unit in October 2017 for depression. She was stabilized on Effexor, and discharged to the outpatient care of Nelida BARON. Apparently she only saw Nelida once in November of last year and did not return for follow-up visits. She indicates today that her moods have been up and down but more recently have been in decline as the anniversary of her daughter Tonya's in 1994 approaches. Her daughter's birthday was May 13 and she says that she had a "rough day" that day and recognize that she needed to get some help. She also admits that for the last several months at least, she has not been taking her medications saying "I get disgusted with myself and I do not care if I take them or not". She indicates that she was taking her insulin but her hemoglobin A1c is over 15. She denies other stressors at this time and is willing to engage in treatment. The patient says that her mood is depressed but not to the point of having suicidal thinking. Her appetite is "not good" and she has lost weight saying that she is in the 150s and she has not been this low for years. Her energy is "terrible" and most times does not get out of the house to do much. Her anxiety is "terrible" but denies any panic attacks. Her sleep is restless and she frequently will wake up and ask her who she was fighting with last night as the covers are in disarray or on the floor. She denies nightmares. She denies having any auditory or visual hallucinations. She does not engage in self-injurious behaviors. There is no evidence of symptoms that would be congruent with a bipolar disorder. Physical Exam Psychiatric Orientation: alert, oriented x 3 and cooperative Apperance: appropriately dressed and appropriately groomed Eye Contact: good eye contact Motor Behavior: no abnormal motor movements Speech: normal rate/rhythm/volume of speech Affect: + blunted affect Mood: + depressed mood (but improved over admission) and + anxious mood Thought Process: goal directed thought process Thought Content: reality based without delusions Suicidal Thoughts: denies suicidal thoughts Homicidal Thoughts: denies homicidal thoughts Hallucinations: no auditory hallucinations and no visual hallucinations Cognition: recent memory grossly intact, remote memory grossly intact, attention grossly intact and language grossly intact Estimated Intelligence: consistent with education level Insight: + limited insight Judgement: + limited judgement Vital Signs (Past 24 Hours) Last Vital Signs Temp 36.7 C 05/20/18 06:56 Pulse 96 H 05/20/18 06:57 Resp 16 05/19/18 07:17 BP 137/84 05/20/18 06:57 Pulse Ox 99 05/15/18 02:25 Principal Diagnosis Major depressive disorder, recurrent, severe Psychiatric Data The patient has been on our unit for 5 days. She was admitted voluntarily with severe depression having not taken her meds or cared for her many medical conditions for months. She had dropped out of psychiatric care, and had just passed the birthday of a daughter. For complete admission information I refer you to the attached H&P. During her stay her home meds were restarted. We retitrated Effexor XR to 150 mg daily. We enlisted the help of [facility] hospitalist service to assist with medical management, and they adjusted her BP meds for better results and adherence. Unfortunately she experienced some orthostasis, and so by day of discharge I held her Lisinopril 5 mg to see if this improved it at all. She had been taken off of HCTZ and metoprolol changed to XR once daily dosing. Her participated in a family meeting during which the patient talked about needing time away from her since he is now retired and they are together all the time. He was receptive to this. Outpatient compliance will continue to be a concern as the patient dropped out of both psychiatric follow up and medical follow up after her last hospitalization in October 2017. She agreed to a referral to [facility] in [place] which would make it easier for her to attend since its closer. We also recommended an endocrine follow up given her history with noncompliance with medications and vastly fluctuating blood sugars. At no point was the patient suicidal, but explained her behaviors as "I just didn't care". She experienced KOHLER's during her stay, minimized by the use of prn tylenol and a dark room, but difficult to say whether these were tension KOHLER's or whether they were possibly related to restarting Effexor. She was encouraged to watch the pattern and review with her OP providers. Risk factors were mediated through the use of medications, group and individual counseling, safety planning, family meeting, education about the importance of psychiatric and medical follow up, and aftercare planning. Day of Discharge Assessment Today the patient is requesting discharge. We had planned for her to be picked up prior to a scheduled endocrinology appt this AM but due to weather this appt has been cancelled and will be rescheduled. she continues to deny SI and says that she feels ready to go home. She is reporting another KOHLER last night. Today she is still in bed, dressed in pajamas. Eye contact is good. Affect is restricted. No abnormal movements noted. Speech is of normal rate volume and tone with frequent use of terms of endearment. thoughts are organized, goal directed and without evidence of thought disorder. Recent/remote memory is intact per conversation. Intelligence is estimated to be average. Insight and judgment are improved over admission. Transition of Care Transition Of Care Record: was reviewed with the patient Advance Directives Advance Directives Information Provided: Yes Advance Directives: No Mental Health Advance Directive: No Advance Directives on File: No Living Will: No Power of Pick Up Worker: No Advance Directives Reason:: Declines as Mental Health Visit. Risk Factors Assessment Male: No : Yes Do You Have Access To A Gun?: No Health Problems: Yes Mental Health Diagnoses: Yes Substance Use Disorders: No Previous Attempt: No Family History of Suicide: Yes Previous Psychiatric Hospitalization: Yes Hopelessness: No Smoker: No Protective Factors Assessment [employer] Beliefs: Yes : Yes Responsible for Young Children: No Employed: No Stable Relationships: Yes Supportive Family: Yes Tobacco Cessation at Discharge Tobacco Cessation Medication Prescribed at Discharge: Not Applicable/Non-Smoker Total Time Total Time Spent: Greater Than 30 Minutes Total Time Includes: Examination of the patient, Discharge Planning, Medication Reconciliation and Communication with other providers Discharge Data Consultations 05/15/18 10:39 Consult Hospitalist Routine Lab Results 05/14/18 05/14/18 05/14/18 11:45 12:48 12:48 WBC 7.95 RBC 4.64 Hgb 14.6 Hct 41.9 MCV 90.3 MCH 31.5 MCHC 34.8 RDW Std Deviation 40.8 RDW Coeff of Emil 12.3 Plt Count 301 MPV 10.7 H Immature Gran % (Auto) 0.1 Neut % (Auto) 65.3 Lymph % (Auto) 26.7 [place] % (Auto) 6.7 Eos % (Auto) 0.6 Baso % (Auto) 0.6 Immature Gran # (Auto) 0.01 Neut # (Auto) 5.19 Lymph # (Auto) 2.12 [place] # (Auto) 0.53 Eos # (Auto) 0.05 Baso # (Auto) 0.05 Sodium 132 L Potassium 4.8 Chloride 99 Carbon Dioxide 26 Anion Gap 7.0 BUN 14 Creatinine 0.90 Est Cr Clr Drug Dosing 50.7 Est GFR ( Amer) 76.1 Est GFR (Non-Af Amer) 65.7 BUN/Creatinine Ratio 16.0 Glucose 457 H* POC Glucose 390 H* Estimat Average Glucose Hemoglobin A1c Calcium 8.9 Magnesium Total Bilirubin 0.4 AST 7 L ALT 14 Alkaline Phosphatase 108 Total Protein 7.9 Albumin 3.2 L Globulin 4.7 H Albumin/Globulin Ratio 0.7 L Beta-Hydroxybutyric Acd 21.61 H TSH 0.562 Urine Color Urine Appearance Urine pH Ur Specific [place] Urine Protein Urine Glucose (UA) Urine Ketones Urine Blood Urine Nitrite Urine Bilirubin Urine Urobilinogen Ur Leukocyte Esterase Urine RBC Urine WBC Ur Epithelial Cells Urine Bacteria Urine Yeast Salicylates Urine Opiates Screen Ur Methadone, Qual Acetaminophen Urine Barbiturates Ur Phencyclidine (PCP) U Amphetamin/Meth Scrn MDMA (Ecstasy) Screen U Benzodiazepines Scrn Ur Cocaine Metabolite U Marijuana (THC) Screen Ethyl Alcohol mg/dL Influenza Type A Ag Influenza Type B Ag 05/14/18 05/14/18 05/14/18 12:48 12:48 12:48 WBC RBC Hgb Hct MCV MCH MCHC RDW Std Deviation RDW Coeff of Emil Plt Count MPV Immature Gran % (Auto) Neut % (Auto) Lymph % (Auto) [place] % (Auto) Eos % (Auto) Baso % (Auto) Immature Gran # (Auto) Neut # (Auto) Lymph # (Auto) [place] # (Auto) Eos # (Auto) Baso # (Auto) Sodium Potassium Chloride Carbon Dioxide Anion Gap BUN Creatinine Est Cr Clr Drug Dosing Est GFR ( Amer) Est GFR (Non-Af Amer) BUN/Creatinine Ratio Glucose POC Glucose Estimat Average Glucose 395 Hemoglobin A1c 15.4 H Calcium Magnesium Total Bilirubin AST ALT Alkaline Phosphatase Total Protein Albumin Globulin Albumin/Globulin Ratio Beta-Hydroxybutyric Acd TSH Urine Color Urine Appearance Urine pH Ur Specific [place] Urine Protein Urine Glucose (UA) Urine Ketones Urine Blood Urine Nitrite Urine Bilirubin Urine Urobilinogen Ur Leukocyte Esterase Urine RBC Urine WBC Ur Epithelial Cells Urine Bacteria Urine Yeast Salicylates < 1.7 L Urine Opiates Screen Ur Methadone, Qual Acetaminophen 14 Urine Barbiturates Ur Phencyclidine (PCP) U Amphetamin/Meth Scrn MDMA (Ecstasy) Screen U Benzodiazepines Scrn Ur Cocaine Metabolite U Marijuana (THC) Screen Ethyl Alcohol mg/dL < 3.0 Influenza Type A Ag Influenza Type B Ag 05/14/18 05/14/18 05/14/18 12:56 13:30 13:30 WBC RBC Hgb Hct MCV MCH MCHC RDW Std Deviation RDW Coeff of Emil Plt Count MPV Immature Gran % (Auto) Neut % (Auto) Lymph % (Auto) [place] % (Auto) Eos % (Auto) Baso % (Auto) Immature Gran # (Auto) Neut # (Auto) Lymph # (Auto) [place] # (Auto) Eos # (Auto) Baso # (Auto) Sodium Potassium Chloride Carbon Dioxide Anion Gap BUN Creatinine Est Cr Clr Drug Dosing Est GFR ( Amer) Est GFR (Non-Af Amer) BUN/Creatinine Ratio Glucose POC Glucose Estimat Average Glucose Hemoglobin A1c Calcium Magnesium Total Bilirubin AST ALT Alkaline Phosphatase Total Protein Albumin Globulin Albumin/Globulin Ratio Beta-Hydroxybutyric Acd TSH Urine Color Yellow Urine Appearance Clear Urine pH 5.0 Ur Specific [place] 1.040 H Urine Protein 2+ H Urine Glucose (UA) 3+ H Urine Ketones 2+ H Urine Blood Trace H Urine Nitrite Negative Urine Bilirubin Negative Urine Urobilinogen Negative Ur Leukocyte Esterase Negative Urine RBC 0-4 Urine WBC 5-10 H Ur Epithelial Cells 5-10 H Urine Bacteria 2+ H Urine Yeast [place] H Salicylates Urine Opiates Screen Neg Ur Methadone, Qual Neg Acetaminophen Urine Barbiturates Neg Ur Phencyclidine (PCP) Neg U Amphetamin/Meth Scrn Neg MDMA (Ecstasy) Screen Neg U Benzodiazepines Scrn Neg Ur Cocaine Metabolite Neg U Marijuana (THC) Screen Neg Ethyl Alcohol mg/dL Influenza Type A Ag Neg for Influ A Influenza Type B Ag Neg for Influ B 05/14/18 05/14/18 05/14/18 15:23 15:25 16:08 WBC RBC Hgb Hct MCV MCH MCHC RDW Std Deviation RDW Coeff of Emil Plt Count MPV Immature Gran % (Auto) Neut % (Auto) Lymph % (Auto) [place] % (Auto) Eos % (Auto) Baso % (Auto) Immature Gran # (Auto) Neut # (Auto) Lymph # (Auto) [place] # (Auto) Eos # (Auto) Baso # (Auto) Sodium Potassium Chloride Carbon Dioxide Anion Gap BUN Creatinine Est Cr Clr Drug Dosing Est GFR ( Amer) Est GFR (Non-Af Amer) BUN/Creatinine Ratio Glucose POC Glucose 411 H* 419 H* 458 H* Estimat Average Glucose Hemoglobin A1c Calcium Magnesium Total Bilirubin AST ALT Alkaline Phosphatase Total Protein Albumin Globulin Albumin/Globulin Ratio Beta-Hydroxybutyric Acd TSH Urine Color Urine Appearance Urine pH Ur Specific [place] Urine Protein Urine Glucose (UA) Urine Ketones Urine Blood Urine Nitrite Urine Bilirubin Urine Urobilinogen Ur Leukocyte Esterase Urine RBC Urine WBC Ur Epithelial Cells Urine Bacteria Urine Yeast Salicylates Urine Opiates Screen Ur Methadone, Qual Acetaminophen Urine Barbiturates Ur Phencyclidine (PCP) U Amphetamin/Meth Scrn MDMA (Ecstasy) Screen U Benzodiazepines Scrn Ur Cocaine Metabolite U Marijuana (THC) Screen Ethyl Alcohol mg/dL Influenza Type A Ag Influenza Type B Ag 05/14/18 05/14/18 05/14/18 16:59 18:06 19:18 WBC RBC Hgb Hct MCV MCH MCHC RDW Std Deviation RDW Coeff of Emil Plt Count MPV Immature Gran % (Auto) Neut % (Auto) Lymph % (Auto) [place] % (Auto) Eos % (Auto) Baso % (Auto) Immature Gran # (Auto) Neut # (Auto) Lymph # (Auto) [place] # (Auto) Eos # (Auto) Baso # (Auto) Sodium Potassium Chloride Carbon Dioxide Anion Gap BUN Creatinine Est Cr Clr Drug Dosing Est GFR ( Amer) Est GFR (Non-Af Amer) BUN/Creatinine Ratio Glucose POC Glucose 346 H 250 H 101 H Estimat Average Glucose Hemoglobin A1c Calcium Magnesium Total Bilirubin AST ALT Alkaline Phosphatase Total Protein Albumin Globulin Albumin/Globulin Ratio Beta-Hydroxybutyric Acd TSH Urine Color Urine Appearance Urine pH Ur Specific [place] Urine Protein Urine Glucose (UA) Urine Ketones Urine Blood Urine Nitrite Urine Bilirubin Urine Urobilinogen Ur Leukocyte Esterase Urine RBC Urine WBC Ur Epithelial Cells Urine Bacteria Urine Yeast Salicylates Urine Opiates Screen Ur Methadone, Qual Acetaminophen Urine Barbiturates Ur Phencyclidine (PCP) U Amphetamin/Meth Scrn MDMA (Ecstasy) Screen U Benzodiazepines Scrn Ur Cocaine Metabolite U Marijuana (THC) Screen Ethyl Alcohol mg/dL Influenza Type A Ag Influenza Type B Ag 05/14/18 05/14/18 05/14/18 20:04 20:15 21:24 WBC RBC Hgb Hct MCV MCH MCHC RDW Std Deviation RDW Coeff of Emil Plt Count MPV Immature Gran % (Auto) Neut % (Auto) Lymph % (Auto) [place] % (Auto) Eos % (Auto) Baso % (Auto) Immature Gran # (Auto) Neut # (Auto) Lymph # (Auto) [place] # (Auto) Eos # (Auto) Baso # (Auto) Sodium 140 D Potassium 2.7 L D Chloride 108 H Carbon Dioxide 23 Anion Gap 9.0 BUN 15 Creatinine 0.93 Est Cr Clr Drug Dosing 49.0 Est GFR ( Amer) 73.2 Est GFR (Non-Af Amer) 63.1 BUN/Creatinine Ratio 15.6 Glucose 50 L* POC Glucose 70 123 H Estimat Average Glucose Hemoglobin A1c Calcium 8.8 Magnesium Total Bilirubin AST ALT Alkaline Phosphatase Total Protein Albumin Globulin Albumin/Globulin Ratio Beta-Hydroxybutyric Acd TSH Urine Color Urine Appearance Urine pH Ur Specific [place] Urine Protein Urine Glucose (UA) Urine Ketones Urine Blood Urine Nitrite Urine Bilirubin Urine Urobilinogen Ur Leukocyte Esterase Urine RBC Urine WBC Ur Epithelial Cells Urine Bacteria Urine Yeast Salicylates Urine Opiates Screen Ur Methadone, Qual Acetaminophen Urine Barbiturates Ur Phencyclidine (PCP) U Amphetamin/Meth Scrn MDMA (Ecstasy) Screen U Benzodiazepines Scrn Ur Cocaine Metabolite U Marijuana (THC) Screen Ethyl Alcohol mg/dL Influenza Type A Ag Influenza Type B Ag 05/15/18 05/15/18 05/15/18 00:45 07:34 09:46 WBC RBC Hgb Hct MCV MCH MCHC RDW Std Deviation RDW Coeff of Emil Plt Count MPV Immature Gran % (Auto) Neut % (Auto) Lymph % (Auto) [place] % (Auto) Eos % (Auto) Baso % (Auto) Immature Gran # (Auto) Neut # (Auto) Lymph # (Auto) [place] # (Auto) Eos # (Auto) Baso # (Auto) Sodium Potassium Chloride Carbon Dioxide Anion Gap BUN Creatinine Est Cr Clr Drug Dosing Est GFR ( Amer) Est GFR (Non-Af Amer) BUN/Creatinine Ratio Glucose POC Glucose 185 H 324 H 440 H* Estimat Average Glucose Hemoglobin A1c Calcium Magnesium Total Bilirubin AST ALT Alkaline Phosphatase Total Protein Albumin Globulin Albumin/Globulin Ratio Beta-Hydroxybutyric Acd TSH Urine Color Urine Appearance Urine pH Ur Specific [place] Urine Protein Urine Glucose (UA) Urine Ketones Urine Blood Urine Nitrite Urine Bilirubin Urine Urobilinogen Ur Leukocyte Esterase Urine RBC Urine WBC Ur Epithelial Cells Urine Bacteria Urine Yeast Salicylates Urine Opiates Screen Ur Methadone, Qual Acetaminophen Urine Barbiturates Ur Phencyclidine (PCP) U Amphetamin/Meth Scrn MDMA (Ecstasy) Screen U Benzodiazepines Scrn Ur Cocaine Metabolite U Marijuana (THC) Screen Ethyl Alcohol mg/dL Influenza Type A Ag Influenza Type B Ag 05/15/18 05/15/18 05/15/18 09:49 12:00 12:10 WBC RBC Hgb Hct MCV MCH MCHC RDW Std Deviation RDW Coeff of Emil Plt Count MPV Immature Gran % (Auto) Neut % (Auto) Lymph % (Auto) [place] % (Auto) Eos % (Auto) Baso % (Auto) Immature Gran # (Auto) Neut # (Auto) Lymph # (Auto) [place] # (Auto) Eos # (Auto) Baso # (Auto) Sodium Potassium Chloride Carbon Dioxide Anion Gap BUN Creatinine Est Cr Clr Drug Dosing Est GFR ( Amer) Est GFR (Non-Af Amer) BUN/Creatinine Ratio Glucose POC Glucose 411 H* 317 H Estimat Average Glucose Hemoglobin A1c Calcium Magnesium Total Bilirubin AST ALT Alkaline Phosphatase Total Protein Albumin Globulin Albumin/Globulin Ratio Beta-Hydroxybutyric Acd TSH 0.475 Urine Color Urine Appearance Urine pH Ur Specific [place] Urine Protein Urine Glucose (UA) Urine Ketones Urine Blood Urine Nitrite Urine Bilirubin Urine Urobilinogen Ur Leukocyte Esterase Urine RBC Urine WBC Ur Epithelial Cells Urine Bacteria Urine Yeast Salicylates Urine Opiates Screen Ur Methadone, Qual Acetaminophen Urine Barbiturates Ur Phencyclidine (PCP) U Amphetamin/Meth Scrn MDMA (Ecstasy) Screen U Benzodiazepines Scrn Ur Cocaine Metabolite U Marijuana (THC) Screen Ethyl Alcohol mg/dL Influenza Type A Ag Influenza Type B Ag 05/15/18 05/15/18 05/15/18 17:02 20:32 20:36 WBC RBC Hgb Hct MCV MCH MCHC RDW Std Deviation RDW Coeff of Emil Plt Count MPV Immature Gran % (Auto) Neut % (Auto) Lymph % (Auto) [place] % (Auto) Eos % (Auto) Baso % (Auto) Immature Gran # (Auto) Neut # (Auto) Lymph # (Auto) [place] # (Auto) Eos # (Auto) Baso # (Auto) Sodium Potassium Chloride Carbon Dioxide Anion Gap BUN Creatinine Est Cr Clr Drug Dosing Est GFR ( Amer) Est GFR (Non-Af Amer) BUN/Creatinine Ratio Glucose POC Glucose 244 H 367 H* 412 H* Estimat Average Glucose Hemoglobin A1c Calcium Magnesium Total Bilirubin AST ALT Alkaline Phosphatase Total Protein Albumin Globulin Albumin/Globulin Ratio Beta-Hydroxybutyric Acd TSH Urine Color Urine Appearance Urine pH Ur Specific [place] Urine Protein Urine Glucose (UA) Urine Ketones Urine Blood Urine Nitrite Urine Bilirubin Urine Urobilinogen Ur Leukocyte Esterase Urine RBC Urine WBC Ur Epithelial Cells Urine Bacteria Urine Yeast Salicylates Urine Opiates Screen Ur Methadone, Qual Acetaminophen Urine Barbiturates Ur Phencyclidine (PCP) U Amphetamin/Meth Scrn MDMA (Ecstasy) Screen U Benzodiazepines Scrn Ur Cocaine Metabolite U Marijuana (THC) Screen Ethyl Alcohol mg/dL Influenza Type A Ag Influenza Type B Ag 05/15/18 05/16/18 05/16/18 21:18 00:00 08:10 WBC RBC Hgb Hct MCV MCH MCHC RDW Std Deviation RDW Coeff of Emil Plt Count MPV Immature Gran % (Auto) Neut % (Auto) Lymph % (Auto) [place] % (Auto) Eos % (Auto) Baso % (Auto) Immature Gran # (Auto) Neut # (Auto) Lymph # (Auto) [place] # (Auto) Eos # (Auto) Baso # (Auto) Sodium Potassium Chloride Carbon Dioxide Anion Gap BUN Creatinine Est Cr Clr Drug Dosing Est GFR ( Amer) Est GFR (Non-Af Amer) BUN/Creatinine Ratio Glucose POC Glucose 382 H* 204 H 225 H Estimat Average Glucose Hemoglobin A1c Calcium Magnesium Total Bilirubin AST ALT Alkaline Phosphatase Total Protein Albumin Globulin Albumin/Globulin Ratio Beta-Hydroxybutyric Acd TSH Urine Color Urine Appearance Urine pH Ur Specific [place] Urine Protein Urine Glucose (UA) Urine Ketones Urine Blood Urine Nitrite Urine Bilirubin Urine Urobilinogen Ur Leukocyte Esterase Urine RBC Urine WBC Ur Epithelial Cells Urine Bacteria Urine Yeast Salicylates Urine Opiates Screen Ur Methadone, Qual Acetaminophen Urine Barbiturates Ur Phencyclidine (PCP) U Amphetamin/Meth Scrn MDMA (Ecstasy) Screen U Benzodiazepines Scrn Ur Cocaine Metabolite U Marijuana (THC) Screen Ethyl Alcohol mg/dL Influenza Type A Ag Influenza Type B Ag 05/16/18 05/16/18 05/16/18 12:33 17:00 18:45 WBC RBC Hgb Hct MCV MCH MCHC RDW Std Deviation RDW Coeff of Emil Plt Count MPV Immature Gran % (Auto) Neut % (Auto) Lymph % (Auto) [place] % (Auto) Eos % (Auto) Baso % (Auto) Immature Gran # (Auto) Neut # (Auto) Lymph # (Auto) [place] # (Auto) Eos # (Auto) Baso # (Auto) Sodium 132 L D Potassium 4.9 D Chloride 98 Carbon Dioxide 27 Anion Gap 7.0 BUN 35 H D Creatinine 1.40 H D Est Cr Clr Drug Dosing 33.0 Est GFR ( Amer) 44.6 Est GFR (Non-Af Amer) 38.5 BUN/Creatinine Ratio 25.3 H Glucose 327 H POC Glucose 244 H 181 H Estimat Average Glucose Hemoglobin A1c Calcium 9.6 Magnesium 1.7 L Total Bilirubin AST ALT Alkaline Phosphatase Total Protein Albumin Globulin Albumin/Globulin Ratio Beta-Hydroxybutyric Acd 2.55 TSH Urine Color Urine Appearance Urine pH Ur Specific [place] Urine Protein Urine Glucose (UA) Urine Ketones Urine Blood Urine Nitrite Urine Bilirubin Urine Urobilinogen Ur Leukocyte Esterase Urine RBC Urine WBC Ur Epithelial Cells Urine Bacteria Urine Yeast Salicylates Urine Opiates Screen Ur Methadone, Qual Acetaminophen Urine Barbiturates Ur Phencyclidine (PCP) U Amphetamin/Meth Scrn MDMA (Ecstasy) Screen U Benzodiazepines Scrn Ur Cocaine Metabolite U Marijuana (THC) Screen Ethyl Alcohol mg/dL Influenza Type A Ag Influenza Type B Ag 05/16/18 05/17/18 05/17/18 20:42 00:32 07:15 WBC RBC Hgb Hct MCV MCH MCHC RDW Std Deviation RDW Coeff of Emil Plt Count MPV Immature Gran % (Auto) Neut % (Auto) Lymph % (Auto) [place] % (Auto) Eos % (Auto) Baso % (Auto) Immature Gran # (Auto) Neut # (Auto) Lymph # (Auto) [place] # (Auto) Eos # (Auto) Baso # (Auto) Sodium 137 Potassium 4.4 Chloride 105 Carbon Dioxide 25 Anion Gap 7.0 BUN 33 H Creatinine 1.00 D Est Cr Clr Drug Dosing 46.2 Est GFR ( Amer) 67.0 Est GFR (Non-Af Amer) 57.8 BUN/Creatinine Ratio 33.1 H Glucose 165 H POC Glucose 241 H 144 H Estimat Average Glucose Hemoglobin A1c Calcium 9.1 Magnesium Total Bilirubin AST ALT Alkaline Phosphatase Total Protein Albumin Globulin Albumin/Globulin Ratio Beta-Hydroxybutyric Acd TSH Urine Color Urine Appearance Urine pH Ur Specific [place] Urine Protein Urine Glucose (UA) Urine Ketones Urine Blood Urine Nitrite Urine Bilirubin Urine Urobilinogen Ur Leukocyte Esterase Urine RBC Urine WBC Ur Epithelial Cells Urine Bacteria Urine Yeast Salicylates Urine Opiates Screen Ur Methadone, Qual Acetaminophen Urine Barbiturates Ur Phencyclidine (PCP) U Amphetamin/Meth Scrn MDMA (Ecstasy) Screen U Benzodiazepines Scrn Ur Cocaine Metabolite U Marijuana (THC) Screen Ethyl Alcohol mg/dL Influenza Type A Ag Influenza Type B Ag 05/17/18 05/17/18 05/17/18 08:20 12:39 17:25 WBC RBC Hgb Hct MCV MCH MCHC RDW Std Deviation RDW Coeff of Emil Plt Count MPV Immature Gran % (Auto) Neut % (Auto) Lymph % (Auto) [place] % (Auto) Eos % (Auto) Baso % (Auto) Immature Gran # (Auto) Neut # (Auto) Lymph # (Auto) [place] # (Auto) Eos # (Auto) Baso # (Auto) Sodium Potassium Chloride Carbon Dioxide Anion Gap BUN Creatinine Est Cr Clr Drug Dosing Est GFR ( Amer) Est GFR (Non-Af Amer) BUN/Creatinine Ratio Glucose POC Glucose 155 H 165 H 116 H Estimat Average Glucose Hemoglobin A1c Calcium Magnesium Total Bilirubin AST ALT Alkaline Phosphatase Total Protein Albumin Globulin Albumin/Globulin Ratio Beta-Hydroxybutyric Acd TSH Urine Color Urine Appearance Urine pH Ur Specific [place] Urine Protein Urine Glucose (UA) Urine Ketones Urine Blood Urine Nitrite Urine Bilirubin Urine Urobilinogen Ur Leukocyte Esterase Urine RBC Urine WBC Ur Epithelial Cells Urine Bacteria Urine Yeast Salicylates Urine Opiates Screen Ur Methadone, Qual Acetaminophen Urine Barbiturates Ur Phencyclidine (PCP) U Amphetamin/Meth Scrn MDMA (Ecstasy) Screen U Benzodiazepines Scrn Ur Cocaine Metabolite U Marijuana (THC) Screen Ethyl Alcohol mg/dL Influenza Type A Ag Influenza Type B Ag 05/17/18 05/18/18 05/18/18 21:09 08:25 12:32 WBC RBC Hgb Hct MCV MCH MCHC RDW Std Deviation RDW Coeff of Emil Plt Count MPV Immature Gran % (Auto) Neut % (Auto) Lymph % (Auto) [place] % (Auto) Eos % (Auto) Baso % (Auto) Immature Gran # (Auto) Neut # (Auto) Lymph # (Auto) [place] # (Auto) Eos # (Auto) Baso # (Auto) Sodium Potassium Chloride Carbon Dioxide Anion Gap BUN Creatinine Est Cr Clr Drug Dosing Est GFR ( Amer) Est GFR (Non-Af Amer) BUN/Creatinine Ratio Glucose POC Glucose 130 H 97 153 H Estimat Average Glucose Hemoglobin A1c Calcium Magnesium Total Bilirubin AST ALT Alkaline Phosphatase Total Protein Albumin Globulin Albumin/Globulin Ratio Beta-Hydroxybutyric Acd TSH Urine Color Urine Appearance Urine pH Ur Specific [place] Urine Protein Urine Glucose (UA) Urine Ketones Urine Blood Urine Nitrite Urine Bilirubin Urine Urobilinogen Ur Leukocyte Esterase Urine RBC Urine WBC Ur Epithelial Cells Urine Bacteria Urine Yeast Salicylates Urine Opiates Screen Ur Methadone, Qual Acetaminophen Urine Barbiturates Ur Phencyclidine (PCP) U Amphetamin/Meth Scrn MDMA (Ecstasy) Screen U Benzodiazepines Scrn Ur Cocaine Metabolite U Marijuana (THC) Screen Ethyl Alcohol mg/dL Influenza Type A Ag Influenza Type B Ag 05/18/18 05/18/18 05/19/18 17:19 20:56 07:57 WBC RBC Hgb Hct MCV MCH MCHC RDW Std Deviation RDW Coeff of Emil Plt Count MPV Immature Gran % (Auto) Neut % (Auto) Lymph % (Auto) [place] % (Auto) Eos % (Auto) Baso % (Auto) Immature Gran # (Auto) Neut # (Auto) Lymph # (Auto) [place] # (Auto) Eos # (Auto) Baso # (Auto) Sodium Potassium Chloride Carbon Dioxide Anion Gap BUN Creatinine Est Cr Clr Drug Dosing Est GFR ( Amer) Est GFR (Non-Af Amer) BUN/Creatinine Ratio Glucose POC Glucose 160 H 138 H 82 Estimat Average Glucose Hemoglobin A1c Calcium Magnesium Total Bilirubin AST ALT Alkaline Phosphatase Total Protein Albumin Globulin Albumin/Globulin Ratio Beta-Hydroxybutyric Acd TSH Urine Color Urine Appearance Urine pH Ur Specific [place] Urine Protein Urine Glucose (UA) Urine Ketones Urine Blood Urine Nitrite Urine Bilirubin Urine Urobilinogen Ur Leukocyte Esterase Urine RBC Urine WBC Ur Epithelial Cells Urine Bacteria Urine Yeast Salicylates Urine Opiates Screen Ur Methadone, Qual Acetaminophen Urine Barbiturates Ur Phencyclidine (PCP) U Amphetamin/Meth Scrn MDMA (Ecstasy) Screen U Benzodiazepines Scrn Ur Cocaine Metabolite U Marijuana (THC) Screen Ethyl Alcohol mg/dL Influenza Type A Ag Influenza Type B Ag 05/19/18 05/19/18 05/19/18 11:46 17:12 20:51 WBC RBC Hgb Hct MCV MCH MCHC RDW Std Deviation RDW Coeff of Emil Plt Count MPV Immature Gran % (Auto) Neut % (Auto) Lymph % (Auto) [place] % (Auto) Eos % (Auto) Baso % (Auto) Immature Gran # (Auto) Neut # (Auto) Lymph # (Auto) [place] # (Auto) Eos # (Auto) Baso # (Auto) Sodium Potassium Chloride Carbon Dioxide Anion Gap BUN Creatinine Est Cr Clr Drug Dosing Est GFR ( Amer) Est GFR (Non-Af Amer) BUN/Creatinine Ratio Glucose POC Glucose 164 H 105 H 107 H Estimat Average Glucose Hemoglobin A1c Calcium Magnesium Total Bilirubin AST ALT Alkaline Phosphatase Total Protein Albumin Globulin Albumin/Globulin Ratio Beta-Hydroxybutyric Acd TSH Urine Color Urine Appearance Urine pH Ur Specific [place] Urine Protein Urine Glucose (UA) Urine Ketones Urine Blood Urine Nitrite Urine Bilirubin Urine Urobilinogen Ur Leukocyte Esterase Urine RBC Urine WBC Ur Epithelial Cells Urine Bacteria Urine Yeast Salicylates Urine Opiates Screen Ur Methadone, Qual Acetaminophen Urine Barbiturates Ur Phencyclidine (PCP) U Amphetamin/Meth Scrn MDMA (Ecstasy) Screen U Benzodiazepines Scrn Ur Cocaine Metabolite U Marijuana (THC) Screen Ethyl Alcohol mg/dL Influenza Type A Ag Influenza Type B Ag Hospital Course (1) Major depressive disorder, recurrent severe without psychotic features: 05/15 - Restart Effexor XR 75 mg daily titrating as tolerated - Supplemental information from - Explore barriers to accepting psychiatric follow up - Q 15 min checks for safety - Encourage participation in group and individual therapy - Explore healthy coping strategies - Family meeting if indicated. - Safety planning - Aftercare planning 05/16 - Titration of venlafaxine ER to 150mg starting tomorrow morning - Continue attempts to gather collateral information - Ideally will have family meeting with support prior to discharge - Pt encouraged to explore coping skills and arrangements which may help her to better mange these next few difficult months. Encouraged to ask for assistance from therapists as necessary. 05/17 and 05/18 - continue with plan as noted above 05/19 - Plan on DC tomorrow to attend 0900 endocrine appt (2) Diabetes mellitus type 2, uncontrolled: 05/15 - Consult diabetic pharmacist to help manage diabetes - Will consult [facility] hospitalists to assist with all of medical conditions - BSG's AC/HS 05/16 through 05/18 - Glucose remains elevated, but improved compared to admission appreciate help of pharmacy with patient's management (3) Hypertension: 05/15 - Clarify meds with Dr. Batista's office - Will consult [facility] hospitalists to assist with all medical problems - Jan BP - BP declining since resuming home medications - continue to monitor 05/17 and 05/18 - appreciate managment by internal medicine, orthostasis today so discussed slow positional changes (4) Hyperthyroidism: 05/15 - TSH - Consult [facility] hospitalists to assist with all medical problems (5) HNP (herniated nucleus pulposus), lumbar: 05/15 - Will order 3 days of naproxen 375 mg BID to reduce inflamation - Had been using Tramadol as an OP. - Will consult [facility] hospitalists to assist with all medical problems. 05/18 - consider volteran gel or lidocaine patch as additional strategy , discussed with pharmacy given she is on a baby aspirin will try lidocaine patch first and if no releif cautiously switch to voleteran gel Post Discharge Appointments Primary Care Physician Name Of Family Doctor: [facility] - Dr. Wendy Batista/ S[facility] Date of Appointment with PCP: 05/26/18 Time of Appointment with PCP: 10:20 Provider Appointment Comment: [address], [place] [address] Psychiatrist Name of Psychiatrist: [facility]rist's Date of Appointment with Psychiatrist: 05/26/18 Time of Appointment with Psychiatrist: 8:30 a.m. Psychiatric Appointment Comment: [address], [place] [address] Therapist Name of Therapist: [facility] Therapist's Date of Therapist Appointment: 05/20/18 Time of Therapist Appointment: 5:30 p.m. (please arrive 15 minutes early) Therapy Appointment Comment: [address] [place] [address] Warehouse Record Clerk Name of Warehouse Record Clerk: None Specialist Name of Specialist: [facility], Dr. Alicia Castro ([address] [facility]) Phone Number for Specialist: [phone] Date of Appointment with Specialist: 05/20/18 Time of Appointment with Specialist: 9am Specialty Appointment Comment: if unable to make appt, call first thing in am to cancel([phone]) Smoking Cessation Counseling Tobacco Cessation Medication Prescribed at Discharge: Not Applicable/Non-Smoker Contact Information Discharge Discharge [address]: [address] [place] [id number] Discharge Plan Discharge Items Patient Disposition: Home - Self-Care Reason For Visit: MDR 201 Discharge Diagnosis: Major depressive disorder, severe Condition: Fair Discharge Goals: Decrease discomfort, Improve disease control and Improve function Activity: Resume your previous activity Non-emergency contact: Primary Care Provider, Psychiatrist and Therapist Call non-emergency contact if: you have any medication questions and your symptoms worsen Diet: Carb Consistent or DM2 Addtl Provider Instructions: SPECIAL CARE INSTRUCTIONS: 1. Follow through with your scheduled aftercare appointments. If unable to keep an appointment, please call to reschedule. 2. Take your medication only as prescribed. Medication should not be changed or stopped without the approval of your doctor. In the event of worsening symptoms or concerns about side effects, contact your doctor immediately. 3. Utilize new healthy coping skills, anger management skills, and stress management skills learned during your hospitalization. Journal feelings and process them with a support person. Identify stressors or situations that may result in relapse, deterioration or inappropriate behaviors and develop a plan to deal with those issues. 4. If your coping skills are ineffective and you are in crisis, contact your outpatient providers for direction. If unable to reach your providers, please call the CAN HELP LINE AT or go to the closest Emergency Room. 5. Avoid alcohol and un-prescribed drugs. 6. You have been provided with the Mental Health Advance Directives Pamphlet for your review. AFTERCARE APPOINTMENTS: * Please call your insurance company prior to your scheduled appointment to confirm your aftercare providers are covered. Take your insurance information to your appointments. WHO TO CALL AND WHEN: Medical Emergencies: For questions or emergencies related to your hospital stay, please contact the Inpatient Behavioral Health Unit at [phone]. A orthopedics pediatric physician is on-call 29/10 for the Behavioral Health Unit for emergencies At any time you feel your situation is an emergency, you may also call 911 immediately. Your Doctors Instructions noted above were prepared by provider LISA Rich. Prescriptions: New metoprolol succinate 50 mg Tablet Extended Release 24 Hr 50 mg PO QAM Qty: 30 RF: 0 venlafaxine [Effexor XR] 150 mg capsule,extended release 24hr 150 mg PO QAM Qty: 30 RF: 0 Continue multivitamin Tablet 1 tab PO DAILY RF: 0 tramadol 50 mg Tablet 50 mg PO Q8H PRN (Reason: Pain) RF: 0 empagliflozin [Jardiance] 25 mg Tablet 25 mg PO DAILY RF: 0 atorvastatin 40 mg tablet 40 mg PO QAM RF: 0 aspirin 81 mg Tablet,Delayed Release (Dr/Ec) 81 mg PO QAM RF: 0 pantoprazole 40 mg tablet,delayed release (DR/EC) 40 mg PO DAILYBB RF: 0 methimazole 10 mg tablet 10 mg PO QAM RF: 0 insulin lispro protamin-lispro [Humalog Mix 75-25 KwikPen] 100 unit/mL (75-25 ) insulin pen 45 unit subcut QDB RF: 0 insulin lispro protamin-lispro [Humalog Mix 75-25 KwikPen] 100 unit/mL (75-25 ) insulin pen 30 unit subcut QDD RF: 0 acetaminophen [Tylenol Extra Strength] 500 mg Tablet 1,000 mg PO BID PRN (Reason: Pain) RF: 0 Discontinued doxylamine succinate 25 mg Tablet 25 mg PO HS PRN (Reason: Insomnia) RF: 0 venlafaxine 75 mg capsule,extended release 24hr 75 mg PO QAM RF: 0 lisinopril 10 mg tablet 10 mg PO QAM RF: 0 hydrochlorothiazide 12.5 mg tablet 12.5 mg PO QAM RF: 0 Stand-Alone Forms: [facility] Discharge Orders: Discharge Order (Routine); Ordered 05/20/18 Ordered By: Mercedes Damon Admission Data Admit Date/Time: 05/15/18 02:36 Attending Provider: Felisa Connolly Admit Provider: Amber Urrutia Primary Care Provider: Wendy Batista Service: Psychiatry Other Interventions: PSY Interdisciplinary Discharge Planning Last Done: 05/19/18 15:20 Pending Studies at Discharge: No
[2018-05-20] MEDS: MULTIVITAMIN TAB PO SCH (09:05)
[2018-05-20] MEDS: MAGNESIUM OXIDE 400 MG TAB PO SCH (09:05)
[2018-05-20] MEDS: PANTOprazole 40 MG TAB PO SCH (09:05)
[2018-05-20] MEDS: ASPIRIN 81 MG ECTAB PO SCH (09:05)
[2018-05-20] MEDS: VENLAFAXINE HCL XR 75 MG CAPXR PO SCH (09:05)
[2018-05-20] MEDS: METOPROLOL SUCC 50MG EXT REL TAB PO SCH (09:06)
[2018-05-20] MEDS: INSULIN GLARGINE SOLOSTAR 100 UNITS/ML 3 ML PEN SC SCH (09:06)
[2018-05-20] MEDS: methIMAzole 5 MG TABLET PO SCH (09:08)
[2018-05-20] MEDS: INSULIN ASPART 100 UNITS/ML 3 ML PEN SC SCH ×2 (09:13→11:46)
== END 2018-05-20 15:30 | disposition home or self-care (01) | DRG 885 ==
LOC: ED 11:33 → 3S 05-15 02:36
DX: F33.2 Major depressive disorder, recurrent severe without psychotic features; E05.90 Thyrotoxicosis, unspecified without thyrotoxic crisis or storm; I95.1 Orthostatic hypotension; Z82.5 Family history of asthma and other chronic lower respiratory diseases; Z82.0 Family history of epilepsy and other diseases of the nervous system; T46.4X5A Adverse effect of angiotensin-converting-enzyme inhibitors, initial encounter; I12.9 Hypertensive chronic kidney disease with stage 1 through stage 4 chronic kidney disease, or unspecified chronic kidney disease; Z79.82 Long term (current) use of aspirin; N39.0 Urinary tract infection, site not specified; Z91.128 Patient's intentional underdosing of medication regimen for other reason; E86.0 Dehydration; Z79.4 Long term (current) use of insulin; I16.0 Hypertensive urgency; Z81.8 Family history of other mental and behavioral disorders; Z80.1 Family history of malignant neoplasm of trachea, bronchus and lung; Z79.899 Other long term (current) drug therapy; E78.5 Hyperlipidemia, unspecified; N17.9 Acute kidney failure, unspecified; E11.22 Type 2 diabetes mellitus with diabetic chronic kidney disease; E11.65 Type 2 diabetes mellitus with hyperglycemia; E11.43 Type 2 diabetes mellitus with diabetic autonomic (poly)neuropathy; E87.6 Hypokalemia; M51.16 Intervertebral disc disorders with radiculopathy, lumbar region; N18.3 Chronic kidney disease, stage 3 (moderate)

== ENCOUNTER 2018-11-24 12:18 | Inpatient (IN) ==
[2018-11-24] MEDS ORDERED: SODIUM CHLORIDE 0.9% 500 ML IV SCH (13:00)
[2018-11-24 13:03] LABS: Basophils # (auto) 0.03 K/uL (0-0.2); Basophils % (auto) 0.3 %; Eosinophils # (auto) 0.02 K/uL (0-0.5); Eosinophils % (auto) 0.2 %; Hematocrit (blood only) 40.9 % (37-47); Hemoglobin 14.3 g/dL (12.0-16.0); Immature Granulocytes # (auto) 0.03 K/uL (0.00-0.02); Immature Granulocytes % (auto) 0.3 %; Lymphocytes # (auto) 2.09 K/uL (1.2-3.4); Mean Corpuscular Volume 89.5 fL (80-100); Mean Platelet Volume 10.7 fL (7.4-10.4); Monocytes # (auto) 1.31 K/uL (0.11-0.59); Monocytes % (auto) 11.3 %; Neutrophils # (auto) 8.11 K/uL (1.4-6.5); Neutrophils % (auto) 69.9 %; Platelet Count 336 K/uL (130-400); RDW Coefficient of Variation 12.1 % (11.5-14.5); Red Blood Count 4.57 M/uL (4.2-5.4); White Blood Count 11.59 K/uL (4.8-10.8)
--- NOTE | 2018-11-24 13:12 | XRay Report ---
XR chest 1V portable CLINICAL HISTORY: Chest Pain pain COMPARISON STUDY: 10/23/2018 FINDINGS: The bones soft tissues and hemidiaphragms are normal. The cardiomediastinal silhouette is n ormal. The lungs are clear. The pulmonary vasculature is normal. IMPRESSION: Negative chest. The above report was generated using voice recognition software. It may contain grammatical, syntax or spelling errors. Electronically signed by: Yakov Dangelo M.D. 11/24/2018 1:11 PM
[2018-11-24 13:30] LABS: Alanine Aminotransferase 14 U/L (12-78); Albumin Globulin Ratio 0.7 (0.9-2); Albumin Level 3.6 gm/dl (3.4-5.0); Aspartate Aminotransferase 10 U/L (15-37); BUN Creatinine Ratio 20.6 (10-20); Bilirubin,Total 0.7 mg/dl (0.2-1); Blood Urea Nitrogen 31 mg/dl (7-18); Calcium 9.3 mg/dl (8.5-10.1); Carbon Dioxide 22 mmol/L (21-32); Chloride 96 mmol/L (98-107); Creatinine Clr Calc Pharmacy 30.5 ml/min; Est GFR (African American) 41.1; Est GFR (Non-African American) 35.5; Globulin 4.8 gm/dl (2.5-4.0); Glucose 549 mg/dl (70-99); Phosphorus 2.8 mg/dl (2.5-4.9); Potassium 4.4 mmol/L (3.5-5.1); Sodium 130 mmol/L (136-145); Total Protein 8.4 gm/dl (6.4-8.2)
[2018-11-24] MEDS ORDERED: SODIUM CHLORIDE 0.9% 500 ML IV ONE (13:44)
[2018-11-24 13:52] LABS: Alkaline Phosphatase 121 U/L (45-117); Troponin I < 0.015 ng/ml (0-0.045)
[2018-11-24 14:39] LABS: Appearance Urine Clear (Clear); Bilirubin Urine Negative (Negative); Blood Urine Negative (Negative); Color Urine Yellow; Glucose Urine UA 3+ (Negative); Ketones Urine 1+ (Negative); Leukocyte Esterase Urine Negative (Negative); Nitrite Urine Negative (Negative); Protein Urine 2+ (Negative); Specific Gravity Urine 1.038 (1.000-1.030); Urobilinogen Urine Negative (Negative)
[2018-11-24 14:57] LABS: Bacteria Urine 1+ (Negative); RBC Urine 0-4 /hpf (0-4); WBC Urine 0-5 /hpf (0-5)
--- NOTE | 2018-11-24 16:10 | History & Physical Report ---
Date of Service November 24, 2018 Assessment & Plan (1) Diabetes mellitus type 2, uncontrolled: Uncontrolled due to being unable to afford her medications since October, though her A1c's have all been 12.6 - >16.9%, so she has never had optimal control. On presentation, she was in mild DKA with ketones in the urine and anion gap of 12. - IV fluids - Restart sliding scale insulin - Glycemic pharmacist to help adjust - Consider insulin gtt given her mild gap; however, will defer to pharmacy as her - Case management consult for financial assistance (2) CKD (chronic kidney disease) stage 3, GFR 30-59 ml/min: Baseline Cr ~1.0 with eGFR in high 50s. - Now with KEEGAN on CKD; likely prerenal from uncontrolled blood sugars - IV fluids as above - Monitor Cr (3) Hypertension: BP was 175/100. At home, she is on Toprol and lisinopril. - Hold lisinopril for KEEGAN - Restart Toprol (was not taking it due to cost reasons) - Hydralazine PRN (4) Hyperthyroidism: As all above, has not been taking her methimazole or beta-gillian due to cost. - Restart meds - Monitor HR - Will get TSH & FT4 in the AM (5) Major depressive disorder, recurrent severe without psychotic features: Worsening now with financial issues. No SI/HI. Was hospitalized in 05/2018 for depression, though no SI then either. - Restarted home venlafaxine - Do not think a psych consult would be all that beneficial in this case. Her current symptoms stem from financial issues and her inability to afford to medications. Will attempt to help financially, and if this can be done, I think her symptoms should improve. (6) Arthritis: Mostly localized in right hip from an injury in 11/2018. - Trial acetaminophen as able; consider tramadol as well which she has used outpatient. (7) GERD without esophagitis: (8) DVT prophylaxis: SCDs - Low DVT risk per admission calculator History of Present Illness Primary Care Provider: LISA Calle 68yo F w/ hx of DM, HTN, and hyperthyroidism who presents with right hip pain and generalized malaise. Reached her donut hole in late October and has been taking her meds sporadically since that time. She and her have tenuous financial situation, and she cannot only afford her medications every few days. She reports she sometimes takes her insulin in the mornings, but then has to skip the rest of her doses. She reports the same with he other medications. She reports significant depression since October, largely due to her financial issues. No SI/HI. Otherwise denies fevers, chills, sweats, lightheadedness, di zziness, chest pain, shortness of breath, nausea, vomiting, dysuria. She does report some right hip pain that stems from stepping into a hole recently and twisting the hip. Allergies Allergy/AdvReac Type Severity Reaction Status Date / Time No Known Drug Allergies Allergy Unknown Verified 11/24/18 13:23 Home Medications Home Medications Medication Instructions Recorded Confirmed Type acetaminophen [Tylenol Extra 1,000 mg PO BID PRN 03/17/18 11/24/18 History Strength] aspirin 81 mg PO QAM 03/17/18 11/24/18 History atorvastatin 40 mg PO QAM 03/17/18 11/24/18 History methimazole 10 mg PO QAM 03/17/18 11/24/18 History pantoprazole 40 mg PO DAILYBB 03/17/18 11/24/18 History venlafaxine [Effexor XR] 150 mg PO QAM #30 cap 05/20/18 11/24/18 Rx insulin lispro protamine-lispro 50 unit SUBCUT QDB 11/18/18 11/24/18 History 100 unit/mL (75-25) subcutaneous pen tramadol 50 mg tablet 50 mg PO BID PRN #20 tab 11/18/18 11/24/18 Rx insulin lispro protamin-lispro 40 unit SUBCUT QDD 11/24/18 11/24/18 History [Humalog Mix 75-25 KwikPen] lisinopril 20 mg PO QAM 11/24/18 11/24/18 History metoprolol succinate 50 mg PO QAM 11/24/18 11/24/18 History Past Med/Surg History Medical History GERD without esophagitis Arthritis CKD (chronic kidney disease) stage 3, GFR 30-59 ml/min Hypertension Diabetes mellitus type 2, uncontrolled (Acute) Dyslipidemia HNP (herniated nucleus pulposus), lumbar Hyperthyroidism Major depressive disorder, recurrent severe without psychotic features Orthostatic hypotension (Resolved) Pre-syncope (Resolved) Hyperglycemia (Inactive) Hypothyroidism (Inactive) Sinusitis (Inactive) Surgical History H/O oral surgery S/P cholecystectomy S/P tonsillectomy S/P tubal ligation Family History Father Lung cancer Diabetes Prostate cancer Myocardial infarction Mother Alzheimer disease Diabetes Hypertension Myocardial infarction Brother COPD (chronic obstructive pulmonary disease) Social History Preferred Language: Kyr[place] Communication Ability: Effective Visual Impairment: No Limitations Hearing Ability: Normal 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 Beliefs That Will Affect Care: None marital status: Current Living Situation: Spouse current occupation: retired - worked at [employer] Feels Safe at Home: Yes Smoking Status: Never smoker Hx Alcohol Use: No Hx Substance Use: No Childhood Exposure to Second-Hand Smoke: No Review of Systems Review of Systems: All systems reviewed & are unremarkable except as noted in HPI & below Physical Exam Constitutional: WD/WN, vitals as above + acute distress and cooperative; + not appropriately hydrated Eyes: EOM intact bilaterally; no conjunctival abnormality ENMT: external ear and nose normal, oropharynx normal Neck: trachea midline, no thyromegaly normal visual inspection Respiratory: normal respiratory effort, lungs clear to auscultation no respiratory distress Cardiovascular: RRR, no murmur, no edema Gastrointestinal (Abdomen): Inspection/Auscultation: abdomen normal to inspection; abdomen not distended Musculoskeletal: no cyanosis or clubbing, extremities motor strength 5/5 Skin: no rashes, warm and dry Neurologic: moves all extremities and awake Psychiatric: Orientation: alert, oriented to person and cooperative Results & Data Vital Signs (Past 12 Hours) Vital Signs Temp Pulse Resp BP Pulse Ox 11/24/18 15:00 99 H 21 11/24/18 14:30 96 H 21 176/100 H 98 11/24/18 14:00 97 H 17 160/94 H 98 11/24/18 13:30 98 H 17 138/87 96 11/24/18 13:20 102 H 23 99 11/24/18 13:16 100 H 22 143/83 H 11/24/18 12:24 36.4 C L 116 H 22 118/78 96 Code Status & VTE Plan VTE Prophylaxis Plan VTE Prophylaxis will be ordered: Yes PG Care Time/CCT Total # of Minutes Spent Total Time Spent with Patient: Total time spent is greater than 50% in coordination of care (as documented) at patient's floor/unit and/or counseling patient: (1) Diabetes mellitus type 2, uncontrolled Glycemic state: with hyperglycemia Qualified Code(s): E11.65 - Type 2 diabetes mellitus with hyperglycemia (2) Hypertension Hypertension type: unspecified Qualified Code(s): I10 - Essential (primary) hypertension
[2018-11-24] MEDS ORDERED: DEXTROSE 50% 50 ML SYRINGE IV PRN (16:24)
[2018-11-24] MEDS ORDERED: GLUCOSE 10 TABS/TUBE PO PRN (16:24)
[2018-11-24] MEDS ORDERED: GLUCOSE 40% GEL 15 GM TUBE PO PRN (16:24)
[2018-11-24] MEDS ORDERED: HydrALAZINE HCL 20 MG/ML VIAL IV PRN (16:24)
[2018-11-24] MEDS ORDERED: CARBOHYDRATES FOR HYPOGLYCEMIA PO PRN (16:24)
[2018-11-24] MEDS ORDERED: ONDANSETRON INJ 2 MG/ML 2 ML VIAL IV PRN (16:24)
[2018-11-24] MEDS ORDERED: SODIUM CHLORIDE 0.9% 1000ML 1,000 ML IV ONE (16:24)
[2018-11-24] MEDS ORDERED: GLUCAGON FOR INJ 1 MG VIAL SQ PRN (16:24)
[2018-11-24] MEDS ORDERED: PHARMACY GLYCEMIC MGMT CONSULT STA (16:24)
[2018-11-24] MEDS ORDERED: INSULIN ASPART 100 UNITS/ML 3 ML PEN SC SCH ×2 (16:30)
[2018-11-24] MEDS ORDERED: PHARMACY GLYCEMIC MGMT CONSULT PRN (16:45)
[2018-11-24] MEDS ORDERED: INSULIN REGULAR 250 UNITS in SODIUM CHLORIDE 0.9% 247.5 ML IV SCH (17:00)
[2018-11-24] MEDS ORDERED: INSULIN HUMAN REGULAR PER UNIT 7 UNITS in SYRINGE 6.93 ML IV ONE (17:00)
[2018-11-24] MEDS: SODIUM CHLORIDE 0.9% 1000ML 1,000 ML IV SCH ×2 (17:45→23:52)
[2018-11-24] MEDS: INSULIN ASPART 100 UNITS/ML 3 ML PEN SC SCH ×2 (18:06→20:43)
--- NOTE | 2018-11-24 18:42 | Emergency Department Note ---
Entered by Joelle Boss acting as a scribe for Jameson Ackerman MD History of Present Illness General Chief complaint: Back Injury/Pain Stated complaint: DIABETIC NOT TAKING INSULIN AND BACK PAIN Time Seen by Provider: 11/24/18 12:43 Source: patient History of Present Illness Onset (ago): week(s) (few) Location: hip (right) Pain Consistency: + constant Associated symptoms: + other (+lightheadedness; +dehydration; -congestion); no cough, no fever/chills and no shortness of breath Treatments prior to arrival: other (50 units of insulin in the morning) The patient is a 68 year old female who presents to the Emergency Room with complaints of constant right hip pain over the past few weeks. The patient states that she visited her PCP last week regarding symptoms, and she notes she was given tramadol following the visit. The patient states she then visited [facility] where she was given a steroid injection for symptoms. The patient also reports that her sugar is out of control because she is not taking in adequate insulin. The patient states she is not keeping up with insulin because she can not afford the recent increase in lo for insulin. The patient states that she took 50 units of insulin this morning, but she notes that if she takes her scheduled 40 units of insulin in the evening, she will not have any more for tomorrow. The patient notes lightheadedness and possible dehydration. The patient denies a fever, chills, cough, or congestion. The patient states she saw a chiropractor today, and she notes she "lost her wind" when the chiropractor pressed on her back. However, the patient denies being short of breath at the moment. Home Medications Home Medications Medication Instructions Recorded Confirmed Type acetaminophen [Tylenol Extra 1,000 mg PO BID PRN 03/17/18 11/24/18 History Strength] aspirin 81 mg PO QAM 03/17/18 11/24/18 History atorvastatin 40 mg PO QAM 03/17/18 11/24/18 History methimazole 10 mg PO QAM 03/17/18 11/24/18 History pantoprazole 40 mg PO DAILYBB 03/17/18 11/24/18 History venlafaxine [Effexor XR] 150 mg PO QAM #30 cap 05/20/18 11/24/18 Rx insulin lispro protamine-lispro 50 unit SUBCUT QDB 11/18/18 11/24/18 History 100 unit/mL (75-25) subcutaneous pen tramadol 50 mg tablet 50 mg PO BID PRN #20 tab 11/18/18 11/24/18 Rx insulin lispro protamin-lispro 40 unit SUBCUT QDD 11/24/18 11/24/18 History [Humalog Mix 75-25 KwikPen] lisinopril 20 mg PO QAM 11/24/18 11/24/18 History metoprolol succinate 50 mg PO QAM 11/24/18 11/24/18 History Allergies Allergy/AdvReac Type Severity Reaction Status Date / Time No Known Drug Allergies Allergy Unknown Verified 11/24/18 13:23 Past Med/Surg History Medical History GERD without esophagitis Arthritis CKD (chronic kidney disease) stage 3, GFR 30-59 ml/min Hypertension Diabetes mellitus type 2, uncontrolled (Acute) Dyslipidemia HNP (herniated nucleus pulposus), lumbar Hyperthyroidism Major depressive disorder, recurrent severe without psychotic features Orthostatic hypotension (Resolved) Pre-syncope (Resolved) Hyperglycemia (Inactive) Hypothyroidism (Inactive) Sinusitis (Inactive) Surgical History H/O oral surgery S/P cholecystectomy S/P tonsillectomy S/P tubal ligation Family History Father Lung cancer Diabetes Prostate cancer Myocardial infarction Mother Alzheimer disease Diabetes Hypertension Myocardial infarction Brother COPD (chronic obstructive pulmonary disease) Social History Preferred Language: Czech Communication Ability: Effective Visual Impairment: No Limitations Hearing Ability: Normal 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 and A total of 10 systems reviewed and were otherwise negative Physical Exam Vital Signs Vital Signs - 24 hr 11/24/18 12:24 11/24/18 13:16 11/24/18 13:20 Temperature 36.4 C L Temperature Source Oral Sepsis Recent Fever Within 48 Hours No Sepsis Action Taken by Nursing No Action Required Pulse Rate 116 H 100 H 102 H Pulse Rate from SpO2 Sensor 102 H Pulse Rhythm Regular Pulse Strength Normal Respiratory Rate 22 22 23 Respiratory Effort / Characteristics Non-Labored Spontaneous Respiratory Depth Normal Respiratory Pattern Regular Blood Pressure 118/78 143/83 H Blood Pressure Mean 91 103 Blood Pressure Position Sitting Pulse Oximetry 96 99 Oxygen Delivery Method Room Air 11/24/18 13:30 11/24/18 14:00 11/24/18 14:30 Temperature Temperature Source Sepsis Recent Fever Within 48 Hours Sepsis Action Taken by Nursing Pulse Rate 98 H 97 H 96 H Pulse Rate from SpO2 Sensor 99 H 97 H 97 H Pulse Rhythm Pulse Strength Respiratory Rate 17 17 21 Respiratory Effort / Characteristics Respiratory Depth Respiratory Pattern Blood Pressure 138/87 160/94 H 176/100 H Blood Pressure Mean 104 116 125 Blood Pressure Position Pulse Oximetry 96 98 98 Oxygen Delivery Method 11/24/18 15:00 11/24/18 16:03 Temperature Temperature Source Sepsis Recent Fever Within 48 Hours Sepsis Action Taken by Nursing Pulse Rate 99 H 98 H Pulse Rate from SpO2 Sensor Pulse Rhythm Pulse Strength Respiratory Rate 21 19 Respiratory Effort / Characteristics Respiratory Depth Respiratory Pattern Blood Pressure 180/105 H Blood Pressure Mean Blood Pressure Position Pulse Oximetry 98 Oxygen Delivery Method Room Air GENERAL: Awake, alert, fatigued-appearing, in no distress HENT: Normocephalic, atraumatic. Oropharynx with dry mucous membranes and otherwise unremarkable. EYES: Normal conjunctiva. Sclera non-icteric. NECK: Supple. No nuchal rigidity. FROM. No JVD. RESPIRATORY: CTAB. CARDIAC: Regular rate, normal rhythm. Extremities warm and well perfused. Pulses equal. ABDOMEN: Soft, non-distended. No tenderness to palpation. No rebound or guarding. No masses. RECTAL: Deferred. MUSCULOSKELETAL: Chest examination reveals no tenderness. The back is symme trical on inspection without obvious abnormality. There is no CVA tenderness to palpation. No joint edema. LOWER EXTREMITIES: Calves are equal size bilaterally and non-tender. No edema. No discoloration. Mild ttp of right lateral hip/bursa. FROM of hips bilaterally. NEURO: Normal sensorium. No sensory or motor deficits noted. 5/5 strength and SILT x 4 extremities. SKIN: No rash or jaundice noted. Course 1246: Past medical records reviewed. The patient was evaluated in room B11B. A complete history and physical exam was performed. 1512: [facility]. Dr. Smith will further evaluate the patient. Consultations Consultation #1: I [facility]. Dr. Smith will further evaluate the patient. Time: 15:12 Administered Medications Acetaminophen (Tylenol) 650 mg PO Q4H PRN PRN Reason: pain/fever Stop: 12/24/18 16:23 Last Admin: 11/25/18 08:15 Dose: 650 mg Documented by: [id number] Admin: 11/25/18 00:38 Dose: 650 mg Documented by: [id number] Admin: 11/24/18 19:10 Dose: 650 mg Documented by: [id number] Aspirin (Ecotrin Ectab) 81 mg PO [facility] Stop: 12/25/18 08:59 Last Admin: 11/25/18 08:11 Dose: 81 mg Documented by: [id number] Atorvastatin Calcium (Lipitor) 40 mg PO [facility] Stop: 12/25/18 08:59 Last Admin: 11/25/18 08:11 Dose: 40 mg Documented by: [id number] Sodium Chloride (Nss 1000ml) 1,000 mls @ 150 mls/hr IV .Q6H40M [facility] Stop: 12/24/18 16:23 Last Admin: 11/25/18 06:15 Dose: 150 mls/hr Documented by: [id number] Infusion: 11/25/18 06:15 Dose: 150 mls/hr Documented by: [id number] Admin: 11/24/18 23:52 Dose: 150 mls/hr Documented by: [id number] Infusion: 11/24/18 23:52 Dose: 150 mls/hr Documented by: [id number] Admin: 11/24/18 17:45 Dose: 150 mls/hr Documented by: [id number] Insulin Aspart (Novolog Flexpen) 0 units SC ACHS [facility] Stop: 12/25/18 08:59 Last Admin: 11/25/18 09:25 Dose: 11 units Documented by: [id number] Cosigned by: [id number] [facility] Stop: 12/25/18 08:59 Last Admin: 11/25/18 08:11 Dose: 10 mg Documented by: [id number] Metoprolol Succinate (Toprol Xl) [facility] Stop: 12/25/18 08:59 Last Admin: 11/25/18 08:11 Dose: 50 mg Documented by: [id number] Nicotine (Nicoderm Cq) 21 mg TD [facility] Stop: 12/25/18 08:59 Last Admin: 11/25/18 08:12 Dose: Not Given Documented by: [id number] Admin: 11/24/18 22:35 Dose: 21 mg Documented by: [id number] Pantoprazole S[facility]ix) [facility] Stop: 12/25/18 06:29 Last Admin: 11/25/18 06:16 Dose: 40 mg Documented by: [id number] Tramadol HCl (Ultram) 50 mg PO Q4H PRN PRN Reason: Pain Stop: 12/24/18 16:23 Last Admin: 11/25/18 03:43 Dose: 50 mg Documented by: [id number] Admin: 11/24/18 20:48 Dose: 50 mg Documented by: [id number] Venlafaxine HCl (Effexor Extended Release) 150 mg PO [facility] Stop: 12/25/18 08:59 Last Admin: 11/25/18 08:11 Dose: 150 mg Documented by: [id number] Discontinued Medications Sodium Chloride (Nss) 500 mls @ 999 mls/hr IV .Q31M IAN Stop: 11/24/18 13:30 Last Infusion: 11/24/18 14:19 Dose: 0 mls/hr Documented by: [id number] Admin: 11/24/18 13:17 Dose: 999 mls/hr Documented by: [id number] Sodium Chloride (Nss) 500 mls @ 999 mls/hr IV .Q31M ONE Stop: 11/24/18 14:14 Last Infusion: 11/24/18 15:04 Dose: 0 mls/hr Documented by: [id number] Admin: 11/24/18 14:19 Dose: 999 mls/hr Documented by: [id number] Sodium Chloride (Nss 1000ml) 1,000 mls @ 999 mls/hr IV .Q1H1M ONE Stop: 11/24/18 17:24 Last Infusion: 11/24/18 17:33 Dose: 999 mls/hr Documented by: [id number] Admin: 11/24/18 16:32 Dose: 999 mls/hr Documented by: [id number] Insulin Human Regular 250 (units/ Sodium Chloride) 250 mls @ 0 mls/hr IV .Q0M IAN; Protocol Stop: 12/24/18 16:59 Last Titration: 11/24/18 23:43 Dose: 0 units/hr, 0 mls/hr Documented by: [id number] Cosigned by: [id number] Titration: 11/24/18 21:40 Dose: 3.4 units/hr, 3.4 mls/hr Documented by: [id number] Cosigned by: [id number] Titration: 11/24/18 20:42 Dose: 3.4 units/hr, 3.4 mls/hr Documented by: [id number] Cosigned by: [id number] Titration: 11/24/18 20:15 Dose: 3.4 units/hr, 3.4 mls/hr Documented by: [id number] Cosigned by: [id number] Titration: 11/24/18 19:35 Dose: 0 units/hr, 0 mls/hr Documented by: [id number] Cosigned by: [id number] Titration: 11/24/18 18:38 Dose: 5.6 units/hr, 5.6 mls/hr Documented by: [id number] Cosigned by: [id number] Titration: 11/24/18 17:52 Dose: 7 units/hr, 7 mls/hr Documented by: [id number] Cosigned by: [id number] Admin: 11/24/18 17:27 Dose: 7 units/hr, 7 mls/hr Documented by: [id number] Cosigned by: [id number] Insulin Human Regular 7 units/ (Syringe) 7 mls @ 1.4 mls/min IV ONE ONE Stop: 11/24/18 17:04 Last Admin: 11/24/18 17:26 Dose: 1.4 mls/min Documented by: [id number] Cosigned by: [id number] Insulin Aspart (Novolog Flexpen) 0 units SC ACHS [facility] Stop: 12/24/18 16:59 Last Admin: 11/24/18 20:43 Dose: Not Given Documented by: [id number] Cosigned by: [id number] Admin: 11/24/18 18:06 Dose: 2 units Documented by: [id number] Cosigned by: [id number] Insulin Human NPH (Novolin N Nph) 30 units SC NOW STA Stop: 11/25/18 08:50 Last Admin: 11/25/18 09:26 Dose: 30 units Documented by: [id number] Cosigned by: [id number] Miscellaneous Information (Consult Glycemic Management Pharmacy) 1 ea N/A NOW STA; Protocol Stop: 11/24/18 16:25 Last Admin: 11/24/18 16:35 Dose: 1 ea Documented by: [id number] Medical Decision Making Differential Diagnosis Differential diagnosis: Etiologies such as metabolic, infection, hypo/hyperglycemia, electrolyte abnormalities, cardiac sources, intracerebral event, toxicologic, neurologic, as well as others were entertained. Medical Records Attestation: I reviewed the patient's medical records. Home Medications Current Medication List: was personally reviewed by me Laboratory Data Attestation: I reviewed the patient's lab results. Result diagrams: 11/25/18 05:54 11/25/18 05:54 Lab Results 11/24/18 11/24/18 11/24/18 Range/Units 12:32 12:34 12:46 WBC 11.59 H (4.8-10.8) K/uL RBC 4.57 (4.2-5.4) M/uL Hgb 14.3 (12.0-16.0) g/dL Hct 40.9 (37-47) % MCV 89.5 (80-100) fL MCH 31.3 (25-34) pg MCHC 35.0 (32-36) g/dL RDW Std Deviation 39.0 (36.4-46.3) fL RDW Coeff of Emil 12.1 (11.5-14.5) % Plt Count 336 (130-400) K/uL MPV 10.7 H (7.4-10.4) fL Immature Gran % (Auto) 0.3 % Neut % (Auto) 69.9 % Lymph % (Auto) 18.0 % [place] % (Auto) 11.3 % Eos % (Auto) 0.2 % Baso % (Auto) 0.3 % Immature Gran # (Auto) 0.03 H (0.00-0.02) K/uL Neut # (Auto) 8.11 H (1.4-6.5) K/uL Lymph # (Auto) 2.09 (1.2-3.4) K/uL [place] # (Auto) 1.31 H (0.11-0.59) K/uL Eos # (Auto) 0.02 (0-0.5) K/uL Baso # (Auto) 0.03 (0-0.2) K/uL Sodium (136-145) mmol/L Potassium (3.5-5.1) mmol/L Chloride (98-107) mmol/L Carbon Dioxide (21-32) mmol/L Anion Gap (3-11) BUN (7-18) mg/dl Creatinine (0.6-1.2) mg/dl Est Cr Clr Drug Dosing ml/min Est GFR ( Amer) Est GFR (Non-Af Amer) BUN/Creatinine Ratio (10-20) Glucose (70-99) mg/dl POC Glucose 519 H* 546 H* (70-99) Osmolality (280-300) mOsm/kg Calcium (8.5-10.1) mg/dl Phosphorus (2.5-4.9) mg/dl Magnesium (1.8-2.4) mg/dl Total Bilirubin (0.2-1) mg/dl AST (15-37) U/L ALT (12-78) U/L Alkaline Phosphatase (45-117) U/L Troponin I (0-0.045) ng/ml Total Protein (6.4-8.2) gm/dl Albumin (3.4-5.0) gm/dl Globulin (2.5-4.0) gm/dl Albumin/Globulin Ratio (0.9-2) Lipase (73-393) U/L Beta-Hydroxybutyric Acd (0.2-2.81) mg/dl TSH (0.300-4.500) uIu/ml Specimen Hemolysis Urine Color Urine Appearance (Clear) Urine pH (4.5-7.5) Ur Specific [place] (1.000-1.030) Urine Protein (Negative) Urine Glucose (UA) (Negative) Urine Ketones (Negative) Urine Blood (Negative) Urine Nitrite (Negative) Urine Bilirubin (Negative) Urine Urobilinogen (Negative) Ur Leukocyte Esterase (Negative) Urine RBC (0-4) /hpf Urine WBC (0-5) /hpf Ur Epithelial Cells (0-5) /lpf Urine Bacteria (Negative) Hyaline Casts (0-5) /lpf 11/24/18 11/24/18 11/24/18 Range/Units 12:46 12:46 12:46 WBC (4.8-10.8) K/uL RBC (4.2-5.4) M/uL Hgb (12.0-16.0) g/dL Hct (37-47) % MCV (80-100) fL MCH (25-34) pg MCHC (32-36) g/dL RDW Std Deviation (36.4-46.3) fL RDW Coeff of Emil (11.5-14.5) % Plt Count (130-400) K/uL MPV (7.4-10.4) fL Immature Gran % (Auto) % Neut % (Auto) % Lymph % (Auto) % [place] % (Auto) % Eos % (Auto) % Baso % (Auto) % Immature Gran # (Auto) (0.00-0.02) K/uL Neut # (Auto) (1.4-6.5) K/uL Lymph # (Auto) (1.2-3.4) K/uL [place] # (Auto) (0.11-0.59) K/uL Eos # (Auto) (0-0.5) K/uL Baso # (Auto) (0-0.2) K/uL Sodium 130 L (136-145) mmol/L Potassium 4.4 (3.5-5.1) mmol/L Chloride 96 L (98-107) mmol/L Carbon Dioxide 22 (21-32) mmol/L Anion Gap 12.0 H (3-11) BUN 31 H (7-18) mg/dl Creatinine 1.49 H (0.6-1.2) mg/dl Est Cr Clr Drug Dosing 30.5 ml/min Est GFR ( Amer) 41.1 Est GFR (Non-Af Amer) 35.5 BUN/Creatinine Ratio 20.6 H (10-20) Glucose 549 H* (70-99) mg/dl POC Glucose (70-99) Osmolality 312 H (280-300) mOsm/kg Calcium 9.3 (8.5-10.1) mg/dl Phosphorus 2.8 (2.5-4.9) mg/dl Magnesium 2.0 (1.8-2.4) mg/dl Total Bilirubin 0.7 (0.2-1) mg/dl AST 10 L (15-37) U/L ALT 14 (12-78) U/L Alkaline Phosphatase 121 H (45-117) U/L Troponin I < 0.015 (0-0.045) ng/ml Total Protein 8.4 H (6.4-8.2) gm/dl Albumin 3.6 (3.4-5.0) gm/dl Globulin 4.8 H (2.5-4.0) gm/dl Albumin/Globulin Ratio 0.7 L (0.9-2) Lipase 120 (73-393) U/L Beta-Hydroxybutyric Acd (0.2-2.81) mg/dl TSH 0.469 (0.300-4.500) uIu/ml Specimen Hemolysis Urine Color Yellow Urine Appearance Clear (Clear) Urine pH 5.0 (4.5-7.5) Ur Specific [place] 1.038 H (1.000-1.030) Urine Protein 2+ H (Negative) Urine Glucose (UA) 3+ H (Negative) Urine Ketones 1+ H (Negative) Urine Blood Negative (Negative) Urine Nitrite Negative (Negative) Urine Bilirubin Negative (Negative) Urine Urobilinogen Negative (Negative) Ur Leukocyte Esterase Negative (Negative) Urine RBC 0-4 (0-4) /hpf Urine WBC 0-5 (0-5) /hpf Ur Epithelial Cells 10-20 H (0-5) /lpf Urine Bacteria 1+ H (Negative) Hyaline Casts 5-10 H (0-5) /lpf 11/24/18 Range/Units 15:02 WBC (4.8-10.8) K/uL RBC (4.2-5.4) M/uL Hgb (12.0-16.0) g/dL Hct (37-47) % MCV (80-100) fL MCH (25-34) pg MCHC (32-36) g/dL RDW Std Deviation (36.4-46.3) fL RDW Coeff of Emil (11.5-14.5) % Plt Count (130-400) K/uL MPV (7.4-10.4) fL Immature Gran % (Auto) % Neut % (Auto) % Lymph % (Auto) % [place] % (Auto) % Eos % (Auto) % Baso % (Auto) % Immature Gran # (Auto) (0.00-0.02) K/uL Neut # (Auto) (1.4-6.5) K/uL Lymph # (Auto) (1.2-3.4) K/uL [place] # (Auto) (0.11-0.59) K/uL Eos # (Auto) (0-0.5) K/uL Baso # (Auto) (0-0.2) K/uL Sodium (136-145) mmol/L Potassium (3.5-5.1) mmol/L Chloride (98-107) mmol/L Carbon Dioxide (21-32) mmol/L Anion Gap (3-11) BUN (7-18) mg/dl Creatinine (0.6-1.2) mg/dl Est Cr Clr Drug Dosing ml/min Est GFR ( Amer) Est GFR (Non-Af Amer) BUN/Creatinine Ratio (10-20) Glucose (70-99) mg/dl POC Glucose 425 H* (70-99) Osmolality (280-300) mOsm/kg Calcium (8.5-10.1) mg/dl Phosphorus (2.5-4.9) mg/dl Magnesium (1.8-2.4) mg/dl Total Bilirubin (0.2-1) mg/dl AST (15-37) U/L ALT (12-78) U/L Alkaline Phosphatase (45-117) U/L Troponin I (0-0.045) ng/ml Total Protein (6.4-8.2) gm/dl Albumin (3.4-5.0) gm/dl Globulin (2.5-4.0) gm/dl Albumin/Globulin Ratio (0.9-2) Lipase (73-393) U/L Beta-Hydroxybutyric Acd (0.2-2.81) mg/dl TSH (0.300-4.500) uIu/ml Specimen Hemolysis Urine Color Urine Appearance (Clear) Urine pH (4.5-7.5) Ur Specific [place] (1.000-1.030) Urine Protein (Negative) Urine Glucose (UA) (Negative) Urine Ketones (Negative) Urine Blood (Negative) Urine Nitrite (Negative) Urine Bilirubin (Negative) Urine Urobilinogen (Negative) Ur Leukocyte Esterase (Negative) Urine RBC (0-4) /hpf Urine WBC (0-5) /hpf Ur Epithelial Cells (0-5) /lpf Urine Bacteria (Negative) Hyaline Casts (0-5) /lpf Imaging Data Radiologist's Impression: Radiology results as stated below per my review and the radiologist's interpretation: XR chest 1V portable CLINICAL HISTORY: Chest Pain pain COMPARISON STUDY: 10/23/2018 FINDINGS: The bones soft tissues and hemidiaphragms are normal. The cardiomediastinal silhouette is normal. The lungs are clear. The pulmonary vasculature is normal. IMPRESSION: Negative chest. The above report was generated using voice recognition software. It may contain grammatical, syntax or spelling errors. Electronically signed by: Yakov Dangelo M.D. 11/24/2018 1:11 PM ECG Data Attestation: I personally reviewed and interpreted this ECG as follows: Indication: weakness Rate (beats per minute): 97 Rhythm: sinus rhythm (with short PA) Findings: + other (normal axis, no overt acute ischemia) Blood Pressure Blood Pressure Findings: Elevated blood pressure Blood Pressure Disposition: further management by hospitalist SERA Dunn The patient is a pleasant 68-year-old woman with a past medical history of IDDM 2 who presents emergency department with generalized weakness, and persistent right sided hip pain which is believed to be a bursitis after follow-up with orthopedics per hpi. Of note, the patient reports not taking her insulin as prescribed given to her inability to afford it as she is in the "donut hole" of prescription coverage. On arrival the patient is fatigued appearing but no acute distress, afebrile, heart rate in the 110s and stable vital signs. Patient does appear clinically dry. EKG without overt acute ischemia. Chest x- ray negative for acute process. WBC 11.5, nonspecific. H/H and platelets wnl. Glucose 500s on initial chemistry however no significant acidosis. Osms 31 2/without significant elevation and therefore HHS unlikely. LFTs unremarkable. UA without evidence of infection however did demonstrate ketonuria. Patient was feeling improved after IV fluid hydration and glucose had improved to the 400s however she prefers admission at this time for further control of her uncontrolled diabetes. Case was discussed with Dr. Smith, [facility] [place]ist, who will evaluate the patient for admission. SSI ordered for ED however, bed became ready and so will defer to admitting team/glycemic consult. Impression & Plan Diabetes mellitus type 2, uncontrolled, Acute hyperglycemia, Acute dehydration, Ketonuria Discharge Plan Visit Data *Final* Discharge Date/Time: 11/24/18 16:03 Chief Complaint: Back Injury/Pain Stated Complaint: DIABETIC NOT TAKING INSULIN AND BACK PAIN ED Provider: Jameson Ackerman Discharge Problem: Diabetes mellitus type 2, uncontrolled, Acute hyperglycemia, Acute dehydration, Ketonuria Patient Disposition: Admitted As Inpatient Discharge Instructions Interventions: ED Discharge Assessment Last Done: 11/24/18 16:03 Discharge Problem: Diabetes mellitus type 2, uncontrolled Qualifiers: Glycemic state: with hyperglycemia Qualified Code(s): E11.65 - Type 2 diabetes mellitus with hyperglycemia The scribe's documentation has been prepared under my direction and personally reviewed by me in its entirety. I confirm that the note above accurately reflects all work, treatment, procedures, and medical decision making performed by me.
[2018-11-24] MEDS: ACETAMINOPHEN 325 MG TAB PO PRN (19:10)
[2018-11-24] MEDS: TRAMADOL HCL 50 MG TABLET PO PRN (20:48)
[2018-11-24 22:35] LABS: BUN Creatinine Ratio 29.4 (10-20); Calcium 8.8 mg/dl (8.5-10.1); Creatinine Clr Calc Pharmacy 52.3 ml/min; Est GFR (African American) 78.8; Magnesium 1.8 mg/dl (1.8-2.4); Potassium 3.8 mmol/L (3.5-5.1)
[2018-11-24] MEDS: NICOTINE 21 MG/24 HR TDSY TD SCH (22:35)
[2018-11-25] MEDS: ACETAMINOPHEN 325 MG TAB PO PRN ×3 (00:38→22:24)
[2018-11-25] MEDS: TRAMADOL HCL 50 MG TABLET PO PRN (03:43)
[2018-11-25 06:07] LABS: Hematocrit (blood only) 39.4 % (37-47); Hemoglobin 14.2 g/dL (12.0-16.0); Mean Corpuscular Volume 88.5 fL (80-100); Mean Platelet Volume 9.9 fL (7.4-10.4); Platelet Count 295 K/uL (130-400); RDW Coefficient of Variation 12.2 % (11.5-14.5); RDW Standard Deviation 39.3 fL (36.4-46.3); Red Blood Count 4.45 M/uL (4.2-5.4); White Blood Count 10.57 K/uL (4.8-10.8)
[2018-11-25] MEDS: SODIUM CHLORIDE 0.9% 1000ML 1,000 ML IV SCH ×3 (06:15→19:35)
[2018-11-25] MEDS: PANTOprazole 40 MG TAB PO SCH (06:16)
[2018-11-25 06:44] LABS: Estimated Average Glucose 283 mg/dl; Hemoglobin A1C 11.5 % (4.5-5.6)
[2018-11-25 06:45] LABS: BUN Creatinine Ratio 26.6 (10-20); Calcium 8.4 mg/dl (8.5-10.1); Est GFR (African American) 104.5; Est GFR (Non-African American) 90.1; Magnesium 1.7 mg/dl (1.8-2.4); Potassium 4.1 mmol/L (3.5-5.1)
[2018-11-25 06:47] LABS: Phosphorus 2.2 mg/dl (2.5-4.9)
[2018-11-25] MEDS: methIMAzole 5 MG TABLET PO SCH (08:11)
[2018-11-25] MEDS: VENLAFAXINE HCL XR 150 MG CAPXR PO SCH (08:11)
[2018-11-25] MEDS: ASPIRIN 81 MG ECTAB PO SCH (08:11)
[2018-11-25] MEDS: METOPROLOL SUCC 50MG EXT REL TAB PO SCH (08:11)
[2018-11-25] MEDS: ATORVASTATIN 40 MG TAB PO SCH (08:11)
[2018-11-25] MEDS: NICOTINE 21 MG/24 HR TDSY TD SCH (08:12)
[2018-11-25] MEDS ORDERED: INSULIN HUMAN NPH SC STA (08:49)
[2018-11-25] MEDS: INSULIN ASPART 100 UNITS/ML 3 ML PEN SC SCH ×6 (09:25→23:48)
--- NOTE | 2018-11-25 11:40 | Hospitalist Progress Note ---
Date of Service November 25, 2018 Assessment & Plan (1) Diabetes mellitus type 2, uncontrolled: Uncontrolled due to being unable to afford her medications since October, though her A1c's have all been 12.6 - >16.9%, so she has never had optimal control. On presentation, she was in mild DKA with ketones in the urine and anion gap of 12. - IV fluids - Restart sliding scale insulin - Glycemic pharmacist to help adjust - Case management consult for financial assistance DM educator BS still elevated, monitor (2) CKD (chronic kidney disease) stage 3, GFR 30-59 ml/min: Baseline Cr ~1.0 with eGFR in high 50s. - Now with KEEGAN on CKD; likely prerenal from uncontrolled blood sugars - IV fluids as above - Monitor Cr (3) Hypertension: BP was 175/100. At home, she is on Toprol and lisinopril. - Hold lisinopril for KEEGAN - Restart Toprol (was not taking it due to cost reasons) - Hydralazine PRN (4) Hyperthyroidism: As all above, has not been taking her methimazole or beta-gillian due to cost. - Restart meds - Monitor HR - Will get TSH & FT4 in the AM (5) Major depressive disorder, recurrent severe without psychotic features: Worsening now with financial issues. No SI/HI. Was hospitalized in 05/2018 for depression, though no SI then either. - Restarted home venlafaxine - Do not think a psych consult would be all that beneficial in this case. Her current symptoms stem from financial issues and her inability to afford to medications. Will attempt to help financially, and if this can be done, I think her symptoms should improve. (6) Arthritis: Mostly localized in right hip from an injury in 11/2018. - Trial acetaminophen as able; consider tramadol as well which she has used outpatient. (7) GERD without esophagitis: (8) DVT prophylaxis: SCDs - Low DVT risk per admission calculator Subjective Pt states she is feeling much better than prior to admission. No longer lightheaded. She was able to eat without issue. Pt denies fever, SOB, chest pain, abd pain, n/v/c/d. Ongoing LE pain issues as outlined on admission. Her LE swelling is minimal. Review of Systems Review of Systems: Pertinent positives and negatives reviewed in HPI--all others negative Physical Exam Constitutional: WD/WN, vitals as above Eyes: normal visual cheng by confrontation and + anicteric sclerae Neck: normal visual inspection and trachea midline Respiratory: normal respiratory effort, lungs clear to auscultation Cardiovascular: Rate/Rhythm: regular rate and regular rhythm Gastrointestinal (Abdomen): Inspection/Auscultation: abdomen not distended Percussion/Palpation: abdomen soft; abdomen nontender Musculoskeletal: Head/Neck/Chest: normocephalic and head atraumatic Trace b/l nonpitting edema, peripheral pulses intact Skin: no rashes, warm and dry Neurologic: awake; not confused Speech / Cognition: normal speech Psychiatric: A+Ox3, euthymic affect Results & Data Vital Signs (Past 12 Hours) Vital Signs Temp Pulse Resp BP Pulse Ox 11/25/18 07:00 37.0 C 95 H 18 178/80 H 98 PG Care Time/CCT Total # of Minutes Spent Total Time Spent with Patient: Total time spent is greater than 50% in coordination of care (as documented) at patient's floor/unit and/or counseling patient: (1) Diabetes mellitus type 2, uncontrolled Glycemic state: with hyperglycemia Qualified Code(s): E11.65 - Type 2 diabetes mellitus with hyperglycemia (2) Hypertension Hypertension type: unspecified Qualified Code(s): I10 - Essential (primary) hypertension
[2018-11-25] MEDS ORDERED: INSULIN REGULAR 250 UNITS in SODIUM CHLORIDE 0.9% 247.5 ML IV SCH (12:00)
--- NOTE | 2018-11-25 14:18 | Pharmacy Report ---
Glycemic Control Consultation - Date of Service November 25, 2018 - Scope Scope: Glycemic Pharmacist consulted by Dr Smith on 11/25/18 for glycemic control and to write orders per [facility] inpatient glycemic control protocol - Objective Weight: 71 kg Accuchecks BSG (last 24hrs): 11/24/18 11/24/18 11/24/18 12:32 12:34 15:02 Glucose POC Glucose 519 H* 546 H* 425 H* 11/24/18 11/24/18 11/24/18 16:19 16:22 17:34 Glucose POC Glucose 379 H* 379 H* 354 H* 11/24/18 11/24/18 11/24/18 18:34 19:38 20:29 Glucose POC Glucose 266 H 165 H 187 H 11/24/18 11/24/18 11/24/18 21:33 22:09 23:34 Glucose 161 H POC Glucose 163 H 103 H 11/25/18 11/25/18 11/25/18 00:29 02:31 05:54 Glucose 208 H POC Glucose 92 128 H 11/25/18 11/25/18 11/25/18 07:43 11:28 11:32 Glucose POC Glucose 229 H 384 H* 366 H* 11/25/18 11/25/18 13:24 13:26 Glucose POC Glucose 327 H* 340 H* Laboratory Data (last 24hrs): 11/24/18 11/24/18 11/25/18 12:46 22:09 05:54 Potassium 3.8 4.1 Carbon Dioxide 22 21 Anion Gap 9.0 9.0 Creatinine 0.87 D 0.66 Est Cr Clr Drug Dosing 52.3 69.0 Osmolality 312 H HbA1c: Hemoglobin A1c 11.5 % (4.5-5.6) H 11/25/18 05:54 - Recent Pertinent Medications Outpatient Anti-diabetic Regimen: * 75/25 Lispro 50u QAM and 40u QPM * A1c = 11.5 % 11/25/18 - Assessment & Plan Assessment & Plan: ASSESSMENT: * Pt p/w uncontrolled DMII. BSGs in the 500s. Nonadherence to current regimen is being attributed to low socioeconomic status. Will require ReliOn at D/C. Today's A1C is 11.5%. PMHx consistent with CKD-III, HTN, Hyperthy, MDD, among others. Insulin infsn was started overnight and then held per insulin calculator. FBS this AM still in the 200s with lunch BSG in the 300s. Insulin gtt re-started. Will continue with NPH at meal times to help replete her insulin deficiency. IVFs continue. PLAN FOR INPATIENT GLYCEMIC CONTROL: * Starting IV insulin infusion per moderate * Goal Range 120 - 200 mg/dl * In the critical care setting, continuous IV insulin infusion has been shown to be the best method for achieving glycemic targets. * Basal insulin * NPH 30 units this AM and 30 with dinner * Please note that the plan above was derived based on current level of insulin resistance and hospital stress. These recommendations are appropriate for inpatient admission only. Plan of care upon discharge will need to be reassessed to avoid potential outpatient hypo/hyperglycemia. Thank you.
[2018-11-25] MEDS ORDERED: INSULIN ASPART 100 UNITS/ML 3 ML PEN SC SCH (16:30)
[2018-11-25] MEDS ORDERED: INSULIN HUMAN NPH SC ONE ×3 (17:00)
[2018-11-25] MEDS ORDERED: Nursing to Pharmacy Communication ONE (21:00)
[2018-11-26] MEDS: TRAMADOL HCL 50 MG TABLET PO PRN (01:08)
[2018-11-26] MEDS: INSULIN ASPART 100 UNITS/ML 3 ML PEN SC SCH ×3 (04:24→12:34)
[2018-11-26] MEDS: PANTOprazole 40 MG TAB PO SCH (06:03)
[2018-11-26 07:40] LABS: BUN Creatinine Ratio 21.4 (10-20); Calcium 8.5 mg/dl (8.5-10.1); Est GFR (African American) 103.9; Est GFR (Non-African American) 89.7; Magnesium 1.6 mg/dl (1.8-2.4); Phosphorus 2.3 mg/dl (2.5-4.9); Potassium 3.5 mmol/L (3.5-5.1)
[2018-11-26] MEDS ORDERED: INSULIN HUMAN NPH SC STA (08:18)
[2018-11-26] MEDS: VENLAFAXINE HCL XR 150 MG CAPXR PO SCH (08:22)
[2018-11-26] MEDS: methIMAzole 5 MG TABLET PO SCH (08:22)
[2018-11-26] MEDS: ATORVASTATIN 40 MG TAB PO SCH (08:22)
[2018-11-26] MEDS: ASPIRIN 81 MG ECTAB PO SCH (08:22)
[2018-11-26] MEDS: METOPROLOL SUCC 50MG EXT REL TAB PO SCH (08:22)
[2018-11-26] MEDS: MAGNESIUM SULFATE / D5W 1 GM/100 ML BAG IV SCH ×2 (08:27→09:35)
[2018-11-26] MEDS: POT PHOSPHATE MONOBASIC W/ SOD TAB PO SCH ×2 (08:28→12:39)
--- NOTE | 2018-11-26 09:01 | Pharmacy Report ---
Pharmacy Glycemic Short Note 2 - Date of Service November 26, 2018 - Glycemic Short BSG Results (Last 24 hours): 11/25/18 11/25/18 11/25/18 11:28 11:32 13:24 Glucose POC Glucose 384 H* 366 H* 327 H* 11/25/18 11/25/18 11/25/18 13:26 14:25 15:36 Glucose POC Glucose 340 H* 243 H 140 H 11/25/18 11/25/18 11/25/18 16:28 16:33 18:01 Glucose POC Glucose 74 73 131 H 11/25/18 11/25/18 11/26/18 20:23 23:41 04:05 Glucose POC Glucose 118 H 120 H 118 H 11/26/18 11/26/18 06:34 07:39 Glucose 125 H POC Glucose 120 H ASSESSMENT: * Insulin gtt --> basal/bolus conversion successful yesterday evening. BSGs since conversion: [phone]/dL. Will continue with NPH/novolog in lieu of premixed insulin. Diet and adequate PO intake continue. PLAN FOR INPATIENT GLYCEMIC CONTROL: * Hold outpatient premixed insulin * Basal insulin * NPH 15 units given this AM. Will see how she responds and adjust evening dose as needed * Bolus insulin * NovoLog per scale ACHS or Q6hrs while NPO * Goal Range: Low 110 mg/dL - High 140 mg/dL * Correction Factor: 25 mg/dL/unit * Nutritional / Prandial insulin per carb ratio of 1 unit per 8 grams CHO consumed
--- NOTE | 2018-11-26 11:09 | Pharmacy Report ---
Pharmacy Glycemic Short Note 2 - Date of Service November 26, 2018 - Glycemic Short BSG Results (Last 24 hours): 11/25/18 11/25/18 11/25/18 11:28 11:32 13:24 Glucose POC Glucose 384 H* 366 H* 327 H* 11/25/18 11/25/18 11/25/18 13:26 14:25 15:36 Glucose POC Glucose 340 H* 243 H 140 H 11/25/18 11/25/18 11/25/18 16:28 16:33 18:01 Glucose POC Glucose 74 73 131 H 11/25/18 11/25/18 11/26/18 20:23 23:41 04:05 Glucose POC Glucose 118 H 120 H 118 H 11/26/18 11/26/18 06:34 07:39 Glucose 125 H POC Glucose 120 H Discharge Recommendations: * Inpatient Novolog + NPH will make for an easy transition to ReliOn Novolin 70/30 premixed insulin * Recommend starting with ReliOn Novolin 70/30 25u BIDM, with her first dose due tonight (11/26/18) 30 min prior to evening meal. * Further titrations per outpt provider. Gradual reduction in A1C is highly recommended to avoid complications i.e retinal detachment.
--- NOTE | 2018-11-26 16:43 | Discharge Summary ---
Date of Service November 26, 2018 Admission HPI Per Admitting Provider 68yo F w/ hx of DM, HTN, and hyperthyroidism who presents with right hip pain and generalized malaise. Reached her donut hole in late October and has been taking her meds sporadically since that time. She and her have tenuous financial situation, and she cannot only afford her medications every few days. She reports she sometimes takes her insulin in the mornings, but then has to skip the rest of her doses. She reports the same with he other medications. She reports significant depression since October, largely due to her financial issues. No SI/HI. Otherwise denies fevers, chills, sweats, lightheadedness, d izziness, chest pain, shortness of breath, nausea, vomiting, dysuria. She does report some right hip pain that stems from stepping into a hole recently and twisting the hip. Principal Diagnosis Uncontrolled blood sugars Discharge Exam Constitutional WD/WN, vitals as above + acute distress and cooperative; + not appropriately hydrated Eyes EOM intact bilaterally; no conjunctival abnormality ENMT external ear and nose normal, oropharynx normal Neck trachea midline, no thyromegaly normal visual inspection Respiratory normal respiratory effort, lungs clear to auscultation no respiratory distress Cardiovascular RRR, no murmur, no edema Gastrointestinal (Abdomen) Inspection/Auscultation: abdomen normal to inspection; abdomen not distended Musculoskeletal no cyanosis or clubbing, extremities motor strength 5/5 Skin no rashes, warm and dry Neurologic moves all extremities and awake Psychiatric Orientation: alert, oriented to person and cooperative Discharge Data Allergies Allergy/AdvReac Type Severity Reaction Status Date / Time No Known Drug Allergies Allergy Unknown Verified 11/24/18 13:23 Consultations 11/24/18 15:29 ED Decision to Admit Stat Hospital Course (1) Diabetes mellitus type 2, uncontrolled: Uncontrolled due to being unable to afford her medications since October, though her A1c's have all been 12.6 - >16.9%, so she has never had optimal control. On presentation, she was in mild DKA with ketones in the urine and anion gap of 12. - She was initally on an insulin gtt. - Transitioned to an NPH/regular insulin on discharge at 25 units BIDAC. She was seen by the vp clinical research multiple times for instructions on how to draw up the syringes of insulin and self-administer. The insulin is ~$25/month [address] [facility], and she was instructed to go there to pick it up tonight. (2) CKD (chronic kidney disease) stage 3, GFR 30-59 ml/min: Baseline Cr ~1.0 with eGFR in high 50s. - Initially with KEEGAN on CKD due to dehydration; however, her Cr went back to baseline by discharge. (3) Hypertension: BP was 175/100. At home, she is on Toprol and lisinopril. - Held lisinopril for KEEGAN - Restarted Toprol (was not taking it due to cost reasons) - Return to home meds on discharge. (4) Hyperthyroidism: As all above, has not been taking her methimazole or beta-gillian due to cost, though her TSH was 0.47. - Restarted meds (5) Major depressive disorder, recurrent severe without psychotic features: Worsening now with financial issues. No SI/HI. Was hospitalized in 05/2018 for depression, though no SI then either. - Restarted home venlafaxine - Did not think psych consult would be helpful. By discharge, she was in much better spirits. I think the financial issues were the inciting factor here, and she was much happier with her prescription issues being largely worked out. (6) Arthritis: Mostly localized in right hip from an injury in 11/2018. - Trialed acetaminophen as able; consider tramadol as well which she has used outpatient. (7) GERD without esophagitis: (8) DVT prophylaxis: SCDs - Low DVT risk per admission calculator Total Time Total Time Spent Total Time Spent (In Minutes): 45 Total Time Includes: Examination of the Patient Discharge Plan Discharge Items Patient Disposition: Home - Self-Care Reason For Visit: UNCONTROLLED DIABETES Discharge Diagnosis: Diabetes with high blood sugars Discharge Goals: Decrease discomfort, Increase independence and Learn about illness Activity: Resume your previous activity Non-emergency contact: Primary Care Provider Call non-emergency contact if: you have any medication questions and your sym ptoms worsen Follow-up/Referrals: Ramirez Villela CRNP [Primary Care Provider] - 12/01/18 10:15 am (Please, follow up with Ramirez GONZALEZ on SaturdayDecember 01 at 10:15 a m. *If you need to change this appointment, call the office at [phone]. TO APPLY FOR HELP WITH YOUR PRESCRIPTION COPAYS, YOU CAN APPLY FOR A LOW INCOME SUBSIDY THROUGH YOUR PART D PROVIDER. TO APPLY FOR A LOW INCOME SUBSIDY, CALL THE MEMBER SERVICES NUMBER ON YOUR INSURANCE CARD.) Diet: Carb Consistent or DM2 Addtl Provider Instructions: Ms. Mei, You were admitted to the hospital with high blood sugars. This was likely caused by not taking enough insulin which you were doing because of how expensive it is. We have changed your kind of medication and dosing to try to make this more affordable. We are starting you on an insulin called Novolin 70/30 which is only $25 per bottle and which should last you most of a month. Please take it two times per day with breakfast and with dinner. You should give yourself 25 units each time about 30 minutes before you eat. If you skip a meal for some reason (feeling unwell, sick, for a surgery), please only give yourself 15 units. These amounts may change with your PCP. Otherwise, we kept you on your home medications. I have refilled all your scripts at [facility] to help keep costs low. The only refill is for tramadol at [facility] where it will be cheaper. Please monitor your blood sugars 2-3 times per day until you see your PCP to see how your sugars are doing. Please call your PCP if your sugars goes over 200 on a regular basis, or if you have low sugars less than 70. If you have symptoms of shaking, anxiety, agitation, or racing heart, please check your blood sugar. Prescriptions: New Novolin 70/30 U-100 Insulin 100 unit/mL (70-30) suspension 25 units SQ .bidac Qty: 10 RF: 0 Continued atorvastatin 40 mg tablet 40 mg PO QAM Qty: 30 RF: 0 metoprolol succinate 50 mg tablet extended release 24 hr 50 mg PO QAM Qty: 30 RF: 0 lisinopril 20 mg tablet 20 mg PO QAM Qty: 30 RF: 0 venlafaxine [Effexor XR] 150 mg capsule,extended release 24hr 150 mg PO QAM Qty: 30 RF: 0 tramadol 50 mg tablet 50 mg PO BID PRN (Reason: pain) Qty: 10 RF: 0 pantoprazole 40 mg tablet,delayed release (DR/EC) 40 mg PO DAILYBB Qty: 30 RF: 0 methimazole 10 mg tablet 10 mg PO QAM Qty: 30 RF: 0 aspirin 81 mg Tablet,Delayed Release (Dr/Ec) 81 mg PO QAM RF: 0 acetaminophen [Tylenol Extra Strength] 500 mg Tablet 1,000 mg PO BID PRN (Reason: Pain) RF: 0 Discontinued Humalog Mix 75-25 KwikPen 100 unit/mL (75-25) insulin pen 40 unit subcut QDD RF: 0 insulin lispro protamin-lispro 100 unit/mL (75-25) insulin pen 50 unit subcut QDB RF: 0 Stand-Alone Forms: My [facility] [employer] [facility]/Other Patient Handouts: Insulin Regular Recombinant Insulin Suspension Isophane NPH Recombinant ..., Insulin Suspension Isophane NPH Recombinant Suspension for injection, 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 Complications, Hypoglycemia, Diabetes Type 2 Coping, Insulin Injected, Insulin Types, Diabetes Healthy Meals, Diabetes Carbs, Diabetes Exercise Benefits, Diabetes Exercise Get Started, Diabetes Activity Tips, Diabetes Manage A1C Test Discharge Orders: Discharge Order (Routine); Ordered 11/26/18 Ordered By: Bernardino Smith Admission Data Admit Date/Time: 11/24/18 16:08 Attending Provider: Bernardino Smith Admit Provider: Bernardino Smith Primary Care Provider: Ramirez Villela Other Providers: Bernardino Smith Service: Medical Other Interventions: Discharge Summary Assessment (RN) Last Done: 11/26/18 15:53
[2018-11-26] MEDS ORDERED: INSULIN HUMAN NPH SC ONE (17:00)
== END 2018-11-26 16:20 | disposition home or self-care (01) | DRG 638 ==
LOC: ED 12:18 → 2N 16:03

== ENCOUNTER 2022-03-28 17:42 | Inpatient (IN) ==
[2022-03-28 18:36] LABS: Basophils # (auto) 0.05 K/uL (0-0.2); Basophils % (auto) 0.6 %; Eosinophils # (auto) 0.11 K/uL (0-0.50); Eosinophils % (auto) 1.4 %; Hematocrit (blood only) 29.4 % (34.1-44.9); Hemoglobin 9.2 g/dl (12.0-16.0); Immature Granulocytes # (auto) 0.02 K/uL (0.00-0.02); Immature Granulocytes % (auto) 0.2 %; Lymphocytes # (auto) 1.29 K/uL (1.2-3.4); Lymphocytes % (auto) 16.1 %; Mean Corpuscular Hgb Conc 31.3 g/dL (32.0-36.0); Mean Platelet Volume 11.2 fL (9.4-12.3); Monocytes # (auto) 0.62 K/uL (0.24-0.82); Monocytes % (auto) 7.7 %; Neutrophils # (auto) 5.94 K/uL (1.4-6.5); Platelet Count 331 K/uL (130-400); RDW Coefficient of Variation 13.6 % (11.5-14.5); RDW Standard Deviation 49.5 fL (36.4-46.3); Red Blood Count 2.97 M/uL (3.93-5.22); White Blood Count 8.03 K/ul (4.8-10.8)
--- NOTE | 2022-03-28 18:54 | XRay Report ---
XR chest 1V portable CLINICAL HISTORY: sob TECHNIQUE: Single frontal radiograph of the chest was obtained. Comparison: Comparison is made to chest radiograph 06/27/2020 FINDINGS: No lines and tubes are seen. Cardiomegaly is noted. The aortic arch is calcified. The lungs are clear . No evidence of pleural effusion or pneumothorax. IMPRESSION: No acute chest disease. Cardiomegaly is noted. ACT 112: Negative or not required by law. Electronically signed by: Clarke Bernstein M.D. 03/28/2022 6:53 PM
[2022-03-28 18:57] LABS: Albumin Globulin Ratio 0.9 (0.9-2); Albumin Level 3.7 gm/dl (3.4-5.0); BUN Creatinine Ratio 22.9 (10-20); Bilirubin,Total 0.3 mg/dl (0.2-1.0); Calcium 8.4 mg/dl (8.5-10.1); Creatinine Clr Calc Pharmacy 14.4 ml/min; Est GFR (African American) 16.3 ml/min; Est GFR (Non-African American) 14.1 ml/min; Globulin 3.9 gm/dl (2.5-4.0); Magnesium 2.3 mg/dl (1.7-2.4); Potassium 5.7 mmol/L (3.5-5.1); Total Protein 7.6 gm/dl (6.0-8.3)
[2022-03-28 19:03] LABS: Troponin I High Sensitivity 8.8 pg/ml (0-14)
--- NOTE | 2022-03-28 19:03 | Emergency Department Note ---
Impression & Plan Acute kidney injury superimposed on CKD, Hyperkalemia, Fatigue, Breathlessness ED Provider Note Provider: Miguel Albert MD DATE OF SERVICE: 03/28/2022 CHIEF COMPLAINT: Shortness of breath/fatigue, depression HISTORY OF PRESENT ILLNESS: Patient is a 71-year-old female history of CKD, GERD, hypertension, diabetes, hypothyroidism, and depression presenting here today referred from the primary doctor's office. Evidently of the past week she states she developed a some shortness of breath and bit of a dry cough. States her daughter recently tested negative for COVID. Denies to me nausea vomiting or diarrhea. Denies abdominal or chest pain. States has not been eating that much. The office today showed negative rapid flu and COVID test. States that her blood pressure was a bit low. Denies recent falls or trauma. States it is very difficult time of the year and she feels somewhat depressed as one of her daughters some years ago and the holidays are a tough time. Denies wanting to harm her self or planning to harm her self. Maybe a touch of sore throat and sinus congestion. Denies recent travel or significant leg swelling or calf tenderness. REVIEW OF SYSTEMS: A total of 10 review of systems was obtained and negative except as stated above in the HPI. PAST MEDICAL HISTORY: As noted above MEDICATIONS: Reviewed home medication SOCIAL HISTORY: Lives at home with PHYSICAL EXAM: GENERAL: alert and oriented in no acute distress on stretcher Head: normocephalic and atraumatic EYES: No injection, discharge or icterus. NECK: Trachea midline. Supple. ENT: Mucous membranes pink and moist. Pharynx without erythema or exudate. No uvular deviation. LUNGS: Airway patent. No retractions. Breath sounds clear with good air entry bilaterally. HEART: Regular rate and rhythm. No chest wall tenderness ABDOMEN: Soft and non-tender, without guarding or rebound. SKIN: Acyanotic, warm, dry, without rashes EXTREMITIES: Without swelling, tenderness or deformity NEUROLOGICAL: No focal deficits. No aphasia. No facial droop or slurred speech. Normal strength and tone in the extremities. Sensation to gross touch normal. Ambulatory. EK bpm sinus rhythm with PAC. No acute ST segment elevation or depression with QTC of 410. CONTINUOUS CARDIAC MONITORING: was ordered and showed a heart rate of 60s-70s bpm in NSR some PACs Patient's laboratory studies and imaging reviewed. Differential includes Infection, dehydration, metabolic abnormality, hypo /hyperglycemia, electrolyte disturbance, anemia, hypoxia, cardiac sources, intracerebral event, toxicologic, neurologic, as well as other pathologies. IMPRESSION/MEDICAL DECISION MAKING: Sore throat with some slight shortness of breath and fatigue. Not significantly hypoxic here or tachycardic. No leg swelling or calf tenderness. Doubt DVT. Without significant tachycardia or hypoxia lower suspicion for PE. No evidence of significant fluid overload. Chest x-ray obtained. History of CKD. Basic labs obtained. Negative flu and COVID test earlier today. Patient does not appear meningitic or have clinical evidence of an RPA or [employer]. Blood pressure here normal. Radiology reports of the CT head and chest without significant abnormality. Mild anemia today at 9.2 but denies any active bleeding. Some hyperkalemia with a K of 5.7 with a significant worsened creatinine of 3.14 with a BUN of 72 today. Question KEEGAN on CKD causing some of her symptoms as her fatigue may be related to the elevated BUN. Given some IV fluids. Given some bicarbonate, dextrose and insulin, and calcium for the high potassium although its not critically high. Discussed with her staying here for further evaluation. Will order ultrasound of the kidneys to evaluate for possible infective etiology. Do believe she requires further care at the hospital given the hyperkalemia and worsened renal dysfunction. Likely has nonspecific viral syndrome causing some of her weakness and fatigue with some contribution from the uremia as well. DIAGNOSIS: KEEGAN on CKD, hyperkalemia, weakness/fatigue, shortness of breath DISPOSITION: Hospitalist will evaluate Patient was agreeable with this plan. Past Med/Surg History Medical History (Updated 03/28/22 @ 20:16 by Miguel Albert M.D.) Acute kidney injury Anemia Arthritis Diabetes mellitus type 2, uncontrolled IDDM Dyslipidemia GERD without esophagitis HNP (herniated nucleus pulposus), lumbar Hyperglycemia Hyperkalemia Hypertension Hyperthyroidism Major depressive disorder, recurrent severe without psychotic features Melanoma of nose Morbid obesity with BMI of 40.0-44.9, adult Nephrotic syndrome Recurrent UTI Stage 3b chronic kidney disease Vitamin D deficiency Surgical History History of bilateral cataract extraction History of colonoscopy History of melanoma excision History of repair of left rotator cuff History of repair of right rotator cuff History of tooth extraction all teeth removed S/P cholecystectomy S/P tonsillectomy S/P tubal ligation Status post trigger finger release Family History Father Prostate cancer Diabetes Myocardial infarction Lung cancer Mother Diabetes Alzheimer disease Myocardial infarction Hypertension Brother COPD (chronic obstructive pulmonary disease) Other No family history of adverse response to anesthesia Denies family history of Ovarian cancer Breast cancer Colorectal cancer Social History Smoking Status: Never smoker Second Hand Exposure: No; Hx Alcohol Use: No Hx Substance Use: No Preferred Language: Ethiopian Communication Ability: Effective Visual Impairment: No Limitations Hearing Ability: Normal Shop Superintendent Required: No Beliefs That Will Affect Care: None marital status: Current Living Situation: Spouse current occupational status: retired current occupation: retired - worked at [employer] and [employer] Feels Safe at Home: Yes Childhood Exposure to Second-Hand Smoke: No caffeine: Yes (Soda x 10 cans per day.) during the past year weight has: remained stable Dental Care, Regularly: No Physical Activity Frequency: Daily Physical Activity Frequency Comment: house chores Seatbelt Use: always Sunscreen Use: No Assistive Devices: Denture - Upper Allergies Allergies Allergy/AdvReac Type Severity Reaction Status Date / Time No Known Drug Allergies Allergy Unknown Verified 03/28/22 20:43 Home Meds Home Medications Medication Instructions Recorded Confirmed acetaminophen 500 mg tablet 1,000 mg PO Q6H PRN Pain 06/19/21 03/28/22 ketorolac 0.5 % eye drops 1 drp OPB BID 03/28/22 03/28/22 sodium polystyrene sulfonate 30 g PO WK 03/28/22 03/28/22 Previous Rx's Medication Instructions Recorded insulin human U-100 NPH-regulr 57 unit (0.57 mL) subcut BID #10 mL 01/16/21 70-30 mix 100 unit/mL subcutaneous susp (Novolin 70/30 U-100 Insulin) amlodipine 10 mg tablet 10 mg PO QAM #90 tabs 10/16/21 rosuvastatin 10 mg tablet 10 mg PO QAM #90 tabs 11/23/21 calcitriol 0.25 mcg capsule 0.25 mcg PO 3XWK #36 caps 02/21/22 furosemide 20 mg tablet 20 mg PO BID #180 tabs 02/26/22 dapagliflozin 10 mg tablet 10 mg PO DAILY #90 tabs 03/06/22 ([facility]) labetalol 200 mg tablet 200 mg PO BID #180 tabs 03/06/22 pantoprazole 40 mg tablet,delayed 40 mg PO QAM #90 tabs 03/09/22 release lisinopril 40 mg tablet 40 mg PO QAM #90 tabs 03/15/22 methimazole 10 mg tablet 10 mg PO QAM #90 tabs 03/15/22 venlafaxine 150 mg 150 mg PO QAM #90 caps 03/15/22 capsule,extended release 24 hr (Effexor XR) Results & Data (ED) Vital Signs Vital Signs - 24 hr 03/28/22 17:45 Temperature 36.5 C Temperature Source Oral Pulse Rate 71 Pulse Rhythm Regular Pulse Strength Normal Respiratory Rate 21 Respiratory Effort / Characteristics Non-Labored Spontaneous Respiratory Depth Normal Respiratory Pattern Regular Blood Pressure 127/63 Blood Pressure Mean 84 Blood Pressure Position Lying Pulse Oximetry 100 Oxygen Delivery Method Room Air Sepsis Recent Fever Within 48 Hours No Sepsis New/Unexplained Change in Mental Status N/A Sepsis Action Taken by Nursing No Action Required Laboratory Data Result diagrams: 03/28/22 17:59 03/28/22 17:59 Lab Results 03/28/22 03/28/22 03/28/22 Range/Units 17:59 17:59 17:59 WBC 8.03 (4.8-10.8) K/ul RBC 2.97 L (3.93-5.22) M/uL Hgb 9.2 L (12.0-16.0) g/dl Hct 29.4 L (34.1-44.9) % MCV 99.0 (80.0-100.0) fL MCH 31.0 (25.0-34.0) pg MCHC 31.3 L (32.0-36.0) g/dL RDW Std Deviation 49.5 H (36.4-46.3) fL RDW Coeff of Emil 13.6 (11.5-14.5) % Plt Count 331 (130-400) K/uL MPV 11.2 (9.4-12.3) fL Immature Gran % (Auto) 0.2 % Neut % (Auto) 74.0 % Lymph % (Auto) 16.1 % [place]oup % (Auto) 7.7 % Eos % (Auto) 1.4 % Baso % (Auto) 0.6 % Neut # (Auto) 5.94 (1.4-6.5) K/uL Lymph # (Auto) 1.29 (1.2-3.4) K/uL Troup # (Auto) 0.62 (0.24-0.82) K/uL Eos # (Auto) 0.11 (0-0.50) K/uL Baso # (Auto) 0.05 (0-0.2) K/uL Immature Gran # (Auto) 0.02 (0.00-0.02) K/uL Sodium 139 (136-145) mmol/L Potassium 5.7 H (3.5-5.1) mmol/L Chloride 106 (98-107) mmol/L Carbon Dioxide 21 (21-32) mmol/L Anion Gap 12 H (3-11) BUN 72 H (6-23) mg/dl Creatinine 3.14 H (0.6-1.2) mg/dl Est Cr Clr Drug Dosing 14.4 ml/min Est GFR ( Amer) 16.3 ml/min Est GFR (Non-Af Amer) 14.1 ml/min BUN/Creatinine Ratio 22.9 H (10-20) Glucose 130 H (70-99(Fasting)) mg/dl Calcium 8.4 L (8.5-10.1) mg/dl Magnesium 2.3 (1.7-2.4) mg/dl Total Bilirubin 0.3 (0.2-1.0) mg/dl AST 13 (13-39) U/L ALT 8 (7-52) U/L Alkaline Phosphatase 77 (34-104) U/L Troponin I High Sens 8.8 (0-14) pg/ml Total Protein 7.6 (6.0-8.3) gm/dl Albumin 3.7 (3.4-5.0) gm/dl Globulin 3.9 (2.5-4.0) gm/dl Albumin/Globulin Ratio 0.9 (0.9-2) TSH 4.793 H (0.300-4.500) uIu/ml Free T4 0.66 (0.61-1.60) ng/dl Administered Medications Discontinued Medications Dextrose (Dextrose 50% 50 Ml Syringe) 50 ml IV NOW ONE Stop: 03/28/22 19:23 Last Admin: 03/28/22 19:57 Dose: 50 ml Documented By: Sodium Chloride (Nss) 500 mls @ 999 mls/hr IV .Q31M ONE Stop: 03/28/22 19:51 Last Infusion: 03/28/22 20:57 Dose: 0 mls/hr Documented By: Admin: 03/28/22 20:25 Dose: 999 mls/hr Documented By: MICHAEL Sodium Chloride (Nss 1000ml) 1,000 mls @ 999 mls/hr IV .Q1H1M ONE Stop: 03/28/22 20:21 Last Infusion: 03/28/22 20:47 Dose: 0 mls/hr Documented By: Admin: 03/28/22 19:45 Dose: 999 mls/hr Documented By: Calcium Gluconate () 1,000 mg in 60 mls @ 240 mls/hr IV NOW STA Stop: 03/28/22 19:35 Last Infusion: 03/28/22 20:17 Dose: 0 mls/hr Documented By: Admin: 03/28/22 20:01 Dose: 240 mls/hr Documented By: Insulin Human Regular (Novolin-R Insulin Per Unit Charge) 10 units IV NOW STA Stop: 03/28/22 19:23 Last Admin: 03/28/22 20:01 Dose: 10 units Documented By: Co-signed By: MICHAEL Sodium Bicarbonate (Sodium Bicarb 8.4% Inj 50 Meq/50 Ml Syr) 50 meq IV NOW STA Stop: 03/28/22 19:24 Last Admin: 03/28/22 20:08 Dose: 50 meq Documented By: Imaging Data Radiologist's Impression: Chest X-Ray 03/28/22 18:28 XR chest 1V portable CLINICAL HISTORY: sob TECHNIQUE: Single frontal radiograph of the chest was obtained. Comparison: Comparison is made to chest radiograph 06/27/2020 FINDINGS: No lines and tubes are seen. Cardiomegaly is noted. The aortic arch is calcif ied. The lungs are clear. No evidence of pleural effusion or pneumothorax. IMPRESSION: No acute chest disease. Cardiomegaly is noted. ACT 112: Negative or not required by law. Electronically signed by: Clarke Bernstein M.D. 03/28/2022 6:[address] 03/28/22 18:40 CT head/brain wo con CLINICAL HISTORY: blurry vision, weak Technique: Contiguous axial CT images of the head were acquired from the base of the skull to the vertex without intravenous contrast administration. Images were viewed in brain, subdural and bone windows. Automated dose lowering techniques and/or adjustment according to patient size were utilized for this exam. Comparison: Comparison is made to CT head 06/27/2020 Findings: The ventricles, basal cisterns, and cerebral sulci are normal. There is no acute intracranial hemorrhage or evidence of acute territorial infarction. Neither mass effect, shift of the midline structures, nor abnormal extra-axial fluid collections are shown. Encephalomalacia is seen in the left periventricular white matter, unchanged. Imaged portions of the paranasal sinuses and mastoid air cells are clear. The orbits appear normal. There are no acute fractures of the calvaria or scalp swelling. Impression: No acute intracranial hemorrhage, no evidence of acute territorial infarction or other acute intracranial disease process. ACT 112: Negative or not required by law. Electronically signed by: Clarke Bernstein M.D. 03/28/2022 7:52 PM Discharge Plan Visit Data Chief Complaint: Weakness ED Provider: Miguel Albert Discharge Problem: Acute kidney injury superimposed on CKD, Hyperkalemia, Fatigue, Breathlessness Patient Disposition: Being Evaluated by Hospitalist Forms Stand Alone Forms: My [facility] Prescriptions Prescriptions: No Action Novolin 70/30 U-100 Insulin 100 unit/mL (70-30) suspension 57 unit SQ BID Qty: 10 3RF amlodipine 10 mg tablet 10 mg PO QAM Qty: 90 1RF rosuvastatin 10 mg tablet 10 mg PO QAM Qty: 90 1RF calcitriol 0.25 mcg capsule 0.25 mcg PO 3XWK Qty: 36 3RF Rx Instructions: Saturday, Saturday, Saturday in the morning furosemide 20 mg tablet 20 mg PO BID Qty: 180 3RF pantoprazole 40 mg tablet,delayed release (DR/EC) 40 mg PO QAM Qty: 90 1RF venlafaxine [Effexor XR] 150 mg capsule,extended release 24hr 150 mg PO QAM Qty: 90 1RF methimazole 10 mg tablet 10 mg PO QAM Qty: 90 1RF lisinopril 40 mg tablet 40 mg PO QAM Qty: 90 1RF labetalol 200 mg tablet 200 mg PO BID Qty: 180 3RF Farxiga 10 mg tablet 10 mg PO DAILY Qty: 90 3RF acetaminophen 500 mg Tablet 1,000 mg PO Q6H PRN (Reason: Pain) ketorolac 0.5 % drops 1 drp OPB BID sodium polystyrene sulfonate Powder 30 g PO WK Rx Instructions: once a week Referrals Referrals: Ramirez Villela CRNP [Primary Care Provider] - : Fatigue Qualifiers: Fatigue type: unspecified Qualified Code(s): R53.83 - Other fatigue
[2022-03-28 19:11] LABS: Thyroid Stimulating Hormone 4.793 uIu/ml (0.300-4.500)
[2022-03-28] MEDS ORDERED: CALCIUM GLUCONATE 1,000 MG/60 ML BAG IV STA (19:21)
[2022-03-28] MEDS ORDERED: SODIUM CHLORIDE 0.9% 500 ML IV ONE (19:21)
[2022-03-28] MEDS ORDERED: SODIUM CHLORIDE 0.9% 1000ML 1,000 ML IV ONE (19:21)
[2022-03-28] MEDS ORDERED: DEXTROSE 50% 50 ML SYRINGE IV ONE (19:22)
[2022-03-28] MEDS ORDERED: NovoLIN-R INSULIN PER UNIT CHARGE IV STA (19:22)
[2022-03-28] MEDS ORDERED: SODIUM BICARB 8.4% INJ 50 MEQ/50 ML SYR IV STA (19:23)
[2022-03-28 19:47] LABS: T4 Free Thyroxine 0.66 ng/dl (0.61-1.60)
--- NOTE | 2022-03-28 19:53 | CT Scan Report ---
CT head/brain wo con CLINICAL HISTORY: blurry vision, weak Technique: Contiguous axial CT images of the head were acquired from the base of the skull to the [place] without intravenous contrast administration. Images were viewed in brain, subdural and [facility]. Automated dose lowering techniques and/or adjustment according to patient size were utilized for this exam. Comparison: Comparison is made to CT head 06/27/2020 Findings: The ventricles, basal cisterns, and cerebral sulci are normal. There is no acute intracranial hemorrh age or evidence of acute territorial infarction. Neither mass effect, shift of the midline structures , nor abnormal extra-axial fluid collections are shown. Encephalomalacia is seen in the left periven tricular white matter, unchanged. Imaged portions of the paranasal sinuses and mastoid air cells are clear. The orbits appear normal. There are no acute fractures of the calvaria or scalp swelling. Impression: No acute intracranial hemorrhage, no evidence of acute territorial infarction or other acute intracra nial disease process. ACT 112: Negative or not required by law. Electronically signed by: Clarke Bernstein M.D. 03/28/2022 7:52 PM
--- NOTE | 2022-03-28 21:13 | History & Physical Report ---
Date of Service March 28, 2022 Assessment & Plan (1) Acute kidney injury superimposed on CKD: Plan: -Patient has a h/o CKD stage 3b with baseline creatinine of 1.2-1.3, though recently has been in the 1.5-1.7 range. -Cr on admission was 3.14 with a BUN of 72. Patient most likely has a KEEGAN on CKD due to not eating and drinking much lately and may have had a viral illness some days ago. -Will hold nephrotoxic meds and treat with fluids. -Renal US pending. UA pending. -Hep C IgG screen ordered. (2) SOB (shortness of breath) on exertion: Plan: - Most likely 2/2 KEEGAN or acute illness. - No other cardiac symptoms or concerns on history or physical exam. - Will monitor and consider cardiology consult in the future if symptoms do not resolve after treating KEEGAN. (3) Hyperkalemia: Plan: - K of 5.7 treated with bicarbonate, dextrose and insulin, and calcium in the ED. - Will repeat BMP overnight. - Most likely due to worsening kidney function/ KEEGAN. Will continue to monitor with mornining labs. (4) Diabetes mellitus type 2, uncontrolled: Plan: - Patient's home regimen held on admission - Continue BSG checks, sliding-scale insulin, hypoglycemic protocol - Patient has not been checking her blood sugars at home and admits to not ea ting and drinking. - Will get Hemoglobin A1C due to worsening kidney function and fatigue. (5) Hypertension: Plan: -Will hold lisinopril, furosemide, and amlodipine -Will continue labetalol -Will monitor BP closely (6) Fatigue: Plan: - Most likely due to illness or depression. Will see how patient does once her KEEGAN improves. (7) Nephrotic syndrome: Plan: -Follows with Dr. Paige. -UA pending collection at time of admission. (8) Dyslipidemia: Plan: -Will hold at home statin. (9) Hyperthyroidism: Plan: -Continue at home methimazole -TSH was 4.7. (10) Major depressive disorder, recurrent severe without psychotic features: Plan: -continue at home venlafaxine Plan Fluids: NSS @ 110 ml/hr Nutrition: NPO Code status: full code DVT ppx: SCDs Dispo: med/surg Thank you for allowing me to participate in the care of your patient. -Dr. Arnulfo Banks PGY1 History of Present Illness Chief Complaint: KEEGAN on CKD Primary Care Provider: LISA Calle Patient is a 71 y/o female with PMHx of CKD, GERD, HTN, DM2, hyperthyroidism, and depression presenting to the hospital today due to being referred from her PCP. She has been having SOB on exertion for the past 2 weeks. She also states that she has not been eating or drinking much lately as well as being fatigued. She also has some sinus congestion and very mild sore throat. She denies any cough, N/V, diarrhea, CP, or ab pain. She has been somewhat depressed due to the passing of her daughter many years ago that happened around the holidays. Denies any SI or plan. Denies any LE edema, or calf tenderness. Denies any falls or injuries. In the ED: vitals stable, CXR showed cardiomegaly w/o acute chest disease, head CT negative, creatinine 3.14 (baseline 1.5-1.7), BUN of 72. Hyperkalemia with a K of 5.7 given some bicarbonate, dextrose and insulin, and calcium in ED, Mild anemia today at 9.2 but denies any active bleeding, negative flu and covid, renal US pending and UA pending. Allergies Allergy/AdvReac Type Severity Reaction Status Date / Time No Known Drug Allergies Allergy Unknown Verified 03/28/22 20:43 Home Medications Medication Instructions Recorded Confirmed Type insulin human U-100 NPH-regulr 57 unit (0.57 mL) subcut BID #10 mL 01/16/21 03/28/22 Rx 70-30 mix 100 unit/mL subcutaneous susp (Novolin 70/30 U-100 Insulin) acetaminophen 500 mg tablet 1,000 mg PO Q6H PRN Pain 06/19/21 03/28/22 History amlodipine 10 mg tablet 10 mg PO QAM #90 tabs 10/16/21 03/28/22 Rx rosuvastatin 10 mg tablet 10 mg PO QAM #90 tabs 11/23/21 03/28/22 Rx calcitriol 0.25 mcg capsule 0.25 mcg PO 3XWK #36 caps 02/21/22 03/28/22 Rx furosemide 20 mg tablet 20 mg PO BID #180 tabs 11/21/22 12/21/22 Rx dapagliflozin 10 mg tablet 10 mg PO DAILY #90 tabs 03/06/22 03/28/22 Rx (Farxiga) labetalol 200 mg tablet 200 mg PO BID #180 tabs 03/06/22 03/28/22 Rx pantoprazole 40 mg tablet,delayed 40 mg PO QAM #90 tabs 03/09/22 03/28/22 Rx release lisinopril 40 mg tablet 40 mg PO QAM #90 tabs 03/15/22 03/28/22 Rx methimazole 10 mg tablet 10 mg PO QAM #90 tabs 03/15/22 03/28/22 Rx venlafaxine 150 mg 150 mg PO QAM #90 caps 03/15/22 03/28/22 Rx capsule,extended release 24 hr (Effexor XR) ketorolac 0.5 % eye drops 1 drp OPB BID 03/28/22 03/28/22 History sodium polystyrene sulfonate 30 g PO WK 03/28/22 03/28/22 History Past Med/Surg History Medical History Acute kidney injury Anemia Arthritis Diabetes mellitus type 2, uncontrolled Dyslipidemia GERD without esophagitis HNP (herniated nucleus pulposus), lumbar Hyperglycemia Hyperkalemia Hypertension Hyperthyroidism Major depressive disorder, recurrent severe without psychotic features Melanoma of nose Morbid obesity with BMI of 40.0-44.9, adult Nephrotic syndrome Recurrent UTI Stage 3b chronic kidney disease Vitamin D deficiency Surgical History History of bilateral cataract extraction History of colonoscopy History of melanoma excision History of repair of left rotator cuff History of repair of right rotator cuff History of tooth extraction S/P cholecystectomy S/P tonsillectomy S/P tubal ligation Status post trigger finger release Family History Father Prostate cancer Diabetes Myocardial infarction Lung cancer Mother Diabetes Alzheimer disease Myocardial infarction Hypertension Brother COPD (chronic obstructive pulmonary disease) Other No family history of adverse response to anesthesia Denies family history of Ovarian cancer Breast cancer Colorectal cancer Social History Smoking Status: Never smoker Second Hand Exposure: No; Hx Alcohol Use: No Hx Substance Use: No Preferred Language: Dominican Communication Ability: Effective Visual Impairment: No Limitations Hearing Ability: Normal Nurse Technician Required: No Beliefs That Will Affect Care: None marital status: Current Living Situation: Spouse current occupational status: retired current occupation: retired - worked at [employer] Other Information That Helps Us Care for You: No Feels Safe at Home: Yes Safety Concerns: Feels Safe At This Time Childhood Exposure to Second-Hand Smoke: No caffeine: Yes (Soda x 10 cans per day.) during the past year weight has: remained stable Dental Care, Regularly: No Physical Activity Frequency: Daily Physical Activity Frequency Comment: house chores Seatbelt Use: always Sunscreen Use: No Assistive Devices: None Review of Systems Review of Systems: All systems reviewed & are unremarkable except as noted in HPI & below Physical Exam Constitutional: WD/WN, vitals as above Eyes: PERRL, conjunctivae normal, anicteric sclerae ENMT: external ear and nose normal, oropharynx normal Respiratory: normal respiratory effort, lungs clear to auscultation Cardiovascular: RRR, no murmur, no edema Gastrointestinal (Abdomen): normal bowel sounds, soft, nontender, no hepatosplenomegaly Musculoskeletal: no cyanosis or clubbing, extremities motor strength 5/5 Skin: no rashes, warm and dry Neurologic: patellar DTR's 2+ bilat, sensation intact Psychiatric: A+Ox3, euthymic affect Results & Data Results & Data ([facility]) Vital Signs (Past 12 Hours) Vital Signs Temp Pulse Resp BP Pulse Ox O2 Del Method 03/28/22 17:45 36.5 C 71 21 127/63 100 Room Air Code Status & VTE Plan VTE Prophylaxis Plan VTE Prophylaxis will be ordered: Yes Supervising Physician Co-Signing Physician Notes Attending addendum: I have physically seen this patient, have supervised the medical residents activities, and agree with the H&P unless as otherwise noted. Assessment and Plan: Acute kidney injury on CKD/hyperkalemia- Creatinine 3.14 on admission with range 1.23-1.9 Potassium 5.7 Has had decreased oral intake associated with recent viral illness and possibly related to time a year and some depression episodes From the ED received the following: NSS x1 L, calcium gluconate 1 g IV, regular insulin 10 units IV after 1 amp of D50, and bicarb 50 mg IV Recheck BMP now Continue NSS at 80 mils per hour Diabetes mellitus- Has been uncontrolled Check hemoglobin A1c Placed on Accu-Cheks with SSI Nephrotic syndrome/hypertension- Holding lisinopril and furosemide as noted due to KEEGAN Continue labetalol and amlodipine Follows with Dr. Paige Remaining orders and notations as noted in Resident Activity Tracking Resident Involvement: Resident Care Provided Care Provided: Adult Hospital Medicine (1) Fatigue Fatigue type: unspecified Qualified Code(s): R53.83 - Other fatigue (2) Diabetes mellitus type 2, uncontrolled Glycemic state: with hyperglycemia Qualified Code(s): E11.65 - Type 2 diabetes mellitus with hyperglycemia (3) Hypertension Hypertension type: unspecified Qualified Code(s): I10 - Essential (primary) hypertension
[2022-03-28] MEDS ORDERED: GLUCAGON FOR INJ 1 MG VIAL SQ PRN (22:19)
[2022-03-28] MEDS ORDERED: ONDANSETRON INJ 2 MG/ML 2 ML VIAL IV PRN (22:19)
[2022-03-28] MEDS ORDERED: GLUCOSE 10 TAB/TUBE PO PRN (22:19)
[2022-03-28] MEDS ORDERED: GLUCOSE 40% GEL 15 GM TUBE PO PRN (22:19)
[2022-03-28] MEDS ORDERED: DEXTROSE 50% 50 ML SYRINGE IV PRN (22:19)
[2022-03-28] MEDS: SODIUM CHLORIDE 0.9% 1000ML 1,000 ML IV SCH (22:51)
[2022-03-28] MEDS: KETOROLAC 0.5% OP SOLN 5 ML BTL OPB SCH (23:23)
[2022-03-28] MEDS: LABETALOL HCL 200 MG TAB PO SCH (23:23)
[2022-03-29] MEDS ORDERED: INSULIN ASPART PER UNIT SC SCH
[2022-03-29 00:10] LABS: Calcium 8.4 mg/dl (8.5-10.1); Creatinine Clr Calc Pharmacy 15.4 ml/min; Est GFR (African American) 17.6 ml/min; Est GFR (Non-African American) 15.2 ml/min; Potassium 4.8 mmol/L (3.5-5.1)
[2022-03-29] MEDS: CARBOHYDRATES FOR HYPOGLYCEMIA PO PRN ×3 (00:10→17:00)
[2022-03-29] MEDS ORDERED: Nursing to Pharmacy Communication SCH (00:30)
--- NOTE | 2022-03-29 07:02 | Ultrasound Report ---
US renal/blad retro comp HISTORY: 71 years-old Female weak, KEEGAN on CKD acute kidney injury COMPARISON: CT abdomen and pelvis 07/17/2015 TECHNIQUE: Multiple real-time sonographic images of the kidneys and urinary bladder were obtained ass essing grayscale appearance and color flow FINDINGS: The right kidney measures 10.6 x 4.2 x 4.2 cm and is unremarkable without renal calculi, hydronephros is or suspicious mass lesion. Cortical medullary differentiation is preserved. The left kidney measures 9.5 x 4.5 x 4.0 cm and is unremarkable without renal calculi, hydronephrosis or suspicious mass lesion. Cortical medullary differentiation is preserved. Partial distention of the urinary bladder with mild wall thickening. Ureteral jets are not visualized . IMPRESSION: No renal calculi or hydronephrosis. ACT 112: Negative or not required by law. The above report was generated using voice recognition software. It may contain grammatical, syntax o r spelling errors. Electronically signed by: Boo Hammond M.D. 03/29/2022 7:01 AM
[2022-03-29 08:03] LABS: Basophils # (auto) 0.05 K/uL (0-0.2); Basophils % (auto) 0.6 %; Eosinophils # (auto) 0.33 K/uL (0-0.50); Eosinophils % (auto) 3.7 %; Hematocrit (blood only) 25.8 % (34.1-44.9); Hemoglobin 8.1 g/dl (12.0-16.0); Immature Granulocytes # (auto) 0.02 K/uL (0.00-0.02); Immature Granulocytes % (auto) 0.2 %; Lymphocytes # (auto) 2.26 K/uL (1.2-3.4); Lymphocytes % (auto) 25.6 %; Mean Corpuscular Hemoglobin 30.9 pg (25.0-34.0); Mean Corpuscular Hgb Conc 31.4 g/dL (32.0-36.0); Mean Corpuscular Volume 98.5 fL (80.0-100.0); Mean Platelet Volume 11.2 fL (9.4-12.3); Monocytes # (auto) 0.81 K/uL (0.24-0.82); Monocytes % (auto) 9.2 %; Neutrophils # (auto) 5.37 K/uL (1.4-6.5); Neutrophils % (auto) 60.7 %; Platelet Count 299 K/uL (130-400); RDW Coefficient of Variation 13.7 % (11.5-14.5); RDW Standard Deviation 49.3 fL (36.4-46.3); Red Blood Count 2.62 M/uL (3.93-5.22); White Blood Count 8.84 K/ul (4.8-10.8)
[2022-03-29] MEDS: SODIUM CHLORIDE 0.9% 1000ML 1,000 ML IV SCH ×2 (08:07→16:41)
[2022-03-29 08:11] LABS: Appearance Urine Clear (Clear); Bacteria Urine Automated Negative (Negative); Bilirubin Urine Negative (Negative); Blood Urine Negative (Negative); Color Urine Yellow; Epithelial Cell Urine Auto 20-30 /lpf (0-5); Glucose Urine UA 2+ (Negative); Ketones Urine Negative (Negative); Leukocyte Esterase Urine Negative (Negative); Nitrite Urine Negative (Negative); Protein Urine 1+ (Negative); Specific Gravity Urine 1.018 (1.000-1.030); Urobilinogen Urine Negative (Negative)
[2022-03-29 08:38] LABS: BUN Creatinine Ratio 23.6 (10-20); Calcium 7.8 mg/dl (8.5-10.1); Est GFR (African American) 18.5 ml/min; Est GFR (Non-African American) 15.9 ml/min; Potassium 5.5 mmol/L (3.5-5.1)
[2022-03-29 08:41] LABS: Estimated Average Glucose 160 mg/dl; Hemoglobin A1C 7.2 % (4.5-5.6)
[2022-03-29] MEDS: methIMAzole 5 MG TABLET PO SCH (09:11)
[2022-03-29] MEDS: LABETALOL HCL 200 MG TAB PO SCH ×2 (09:11→20:34)
[2022-03-29] MEDS: KETOROLAC 0.5% OP SOLN 5 ML BTL OPB SCH ×2 (09:11→20:34)
[2022-03-29] MEDS: VENLAFAXINE HCL XR 150 MG CAPXR PO SCH (09:11)
[2022-03-29] MEDS: LANTUS PER UNIT CHARGE SQ SCH ×2 (09:13→21:02)
[2022-03-29] MEDS: INSULIN ASPART PER UNIT SC SCH ×4 (09:14→21:03)
--- NOTE | 2022-03-29 11:30 | Hospitalist Progress Note ---
Date of Service March 29, 2022 Assessment & Plan (1) Acute kidney injury superimposed on CKD: Plan: Attending: Dr. Gutierrez Impression: 71-year-old female admitted yesterday for weakness and fatigue, shortness of breath, KEEGAN on chronic kidney disease stage III, and hyperkalemia. Potassium remains of 5.5 this morning. She demonstrates no hypoxia and currently is saturating well on room air. She has no fever. No elevation of white count. She does have anemia with hemoglobin of 8.1. She follows with Dr. Paige and nephrology and was last seen 02/27/2022. Currently not receiving antibiotics. She is receiving normal saline at 110 mL/h. Baseline creatinine is 1.3-1.4 Patient reports poor oral intake over the last 2 to 3 days Questionable viral illness several days ago Continue IV fluids and monitor serial labs Renal ultra sound was unremarkable (2) SOB (shortness of breath) on exertion: Plan: CXR with cardiomegally and no other acute cardiopulmonary abnorma;ities Saturating at 93% on room air Increase ambulation as tolerated. Continue usual antihypertensive and diuretic home medications EKG with NSR and occasional PVCs. Otherwise, normal EKG QtC 410 (3) Stage 3b chronic kidney disease: Plan: Follows with Dr. Paige in the outpatient clinic Baseline creatinine 1.3-1.7 Chronic nephrotic syndrome Renal biopsy with interventional radiology at [facility] 02/19/2022 * Mildly atrophic left kidney without hydronephrosis * No malignancy identified. Tissue was favored to be related to diabetic n ephropathy. No evidence of concomitant glomerulonephritis or an immune complex mediated process. See pathology report below Continue with IV hydration. Follow serial labs. Continue outpatient management with Dr. Paige If no movement in creatinine with evening labs, consider nephrology consult so patient could be seen in the morning (4) Hyperkalemia: Plan: Potassium level 5.5 today Continue with hydration and following serial labs Patient was given 10 units of IV insulin for hyperkalemia yesterday and sugars dropped down to 52. This time, patient continues to be asymptomatic. Troponin within normal limits Repeat EKG NSR with no evidence of peaked T-waves Will give 8.4gms of Patiromer to bind the potassium Repeat PRP in 6 hours. If K+ still elevated, consider additional dose and bicarb gtt (5) GERD without esophagitis: Plan: Continue daily PPI (6) Diabetes mellitus type 2, uncontrolled: Plan: Hemoglobin A1c is 7.2% Hypoglycemic after insulin dose for hyperkalemia Continue Lantus and SSI (7) Dyslipidemia: Plan: Home medications include rosuvastatin 10 mg p.o. daily (8) Hyperthyroidism: Plan: Continue methimazole Patient's TSH is 4.7 (9) Major depressive disorder, recurrent severe without psychotic features: Plan: Continue home dose of venlafaxine Plan DVT prophylaxis: SCDs. Hold chemical prophylaxis for now secondary to anemia. Ambulate as tolerated Admission and Anticipated Discharge Date Admission Date: March 28, 2022 Supervising Physician Co-Signing Physician Notes Attending Attestation - Chart reviewed, care plan d/w TOD Villatoro. I agree w/ the alfaro components of his documentation. Valdo Gutierrez MD Subjective Attending: Dr. Gutierrez This is a 71-year-old female who was admitted yesterday for acute kidney injury superimposed on chronic kidney disease. She also had a hyperkalemia with a potassium of 5.7. She also reported shortness of breath on exertion. Patient is currently 93% on room air. Blood pressure stable at 121/55. Patient does have anemia with a hemoglobin of 8.1 g/Ethan. Potassium remains high today at 5.5. BUN is 67 and creatinine is 2.84. Patient follows with Dr. Paige from nephrology in the outpatient setting and was last seen by her 03/06/2022. Baseline creatinine is 1.3-1.4 and nephrotic syndrome with greater than 8 g of proteinuria. No blood cultures or urine cultures collected this admission. It should be not ed the patient did have urinary tract infection with vela sensitive E. coli 01/27/2022. Patient currently is not receiving antibiotics. She is receiving normal saline at 110 mL/h. Patient was admitted for KEEGAN, hyperkalemia, fatigue, and shortness of breath. Patient seen and examined at bedside. She reports continued weakness and fatigue. Potassium is elevated but she denies any palpitations or chest pain. She has no acute complaints. She has not been out of bed other than to use the restroom. Nursing will be walking within the hallway today to check on tolerance. She reports that she lives at home with her . She does not use a walker or other ambulatory device. She denies any regular falls or balance issues. Review of Systems Review of Systems: A total of 10 systems was reviewed and is negative other than as listed in the HPI Physical Exam Physical Exam: GENERAL : No acute distress EYES: No icterus, gaze conjugate NOSE: No evidence of epistaxis MOUTH: No lesions or candidiasis NECK: Supple LUNGS: CTA B/L, no wheezes, rales or rhonchi HEART: Regular, rate controlled ABDOMEN: Soft, NT, ND, BS Present EXTREMITIES: No LE edema, pedal pulses intact NEURO: A&OX3 Results & Data Results & Data ([facility]) Vital Signs (Past 12 Hours) Vital Signs Temp Pulse Resp BP Pulse Ox O2 Del Method 03/29/22 07:43 36.7 C 79 18 121/55 L 93 Room Air Critical Care Results & Data Vital Signs (Past 12 Hours) Vital Signs Temp Pulse Resp BP Pulse Ox O2 Del Method 03/29/22 07:43 36.7 C 79 18 121/55 L 93 Room Air Lab & Micro Results (Past 24 Hours) RBC 2.56 M/uL (3.93-5.22) L 04/05/22 WBC 13.34 K/ul (4.8-10.8) H 04/05/22 Hgb 8.2 g/dl (12.0-16.0) L 04/05/22 Hct 25.4 % (34.1-44.9) L 04/05/22 MCV 99.2 fL (80.0-100.0) 04/05/22 MCH 32.0 pg (25.0-34.0) 04/05/22 MCHC 32.3 g/dL (32.0-36.0) 04/05/22 RDW Standard Deviation 49.6 fL (36.4-46.3) H 04/05/22 RDW Coefficient of Variation 13.9 % (11.5-14.5) 04/05/22 Plt Count 317 K/uL (130-400) 04/05/22 MPV 11.1 fL (9.4-12.3) 04/05/22 Nucleated Red Blood Cells % (auto) 0.2 % 04/05 Nucleated RBC Absolute Count (auto) 0.03 K/uL (0-0) H 03/09 12/28 Na 141 mmol/L (136-145) 04/05/22 K 3.7 mmol/L (3.5-5.1) 04/05/22 Cl 104 mmol/L (98-107) 04/05/22 CO2 28 mmol/L (21-32) 04/05/22 Anion Gap 9 (3-11) 04/05/22 BUN 72 mg/dl (6-23) H 04/05/22 Creatinine 2.81 mg/dl (0.6-1.2) H 04/05/22 Estimated GFR ( Amer) 18.7 ml/min 04/05/22 Estimated GFR (Non-Af Amer) 16.1 ml/min 04/05/22 BUN/Creatinine Ratio 25.6 (10-20) H 04/05/22 Glu 85 mg/dl (70-99(Fasting)) 04/05/22 Ca 8.5 mg/dl (8.5-10.1) 04/05/22 Calcium Level 8.5 mg/dl (8.5-10.1) 04/05/22 07:57 Diagnostic Findings (Past 24 Hours) Chest X-Ray 03/28/22 18:28 XR chest 1V portable CLINICAL HISTORY: sob TECHNIQUE: Single frontal radiograph of the chest was obtained. Comparison: Comparison is made to chest radiograph 06/27/2020 FINDINGS: No lines and tubes are seen. Cardiomegaly is noted. The aortic arch is calcified. The lungs are clear. No evidence of pleural effusion or pneumothorax. IMPRESSION: No acute chest disease. Cardiomegaly is noted. ACT 112: Negative or not required by law. Electronically signed by: Clarke Bernstein M.D. 03/28/2022 6:[address] 03/28/22 18:40 CT head/brain wo con CLINICAL HISTORY: blurry vision, weak Technique: Contiguous axial CT images of the head were acquired from the base of the skull to the vertex without intravenous contrast administration. Images were viewed in brain, subdural and bone windows. Automated dose lowering techniques and/or adjustment according to patient size were utilized for this exam. Comparison: Comparison is made to CT head 06/27/2020 Findings: The ventricles, basal cisterns, and cerebral sulci are normal. There is no acute intracranial hemorrhage or evidence of acute territorial infarction. Neither mass effect, shift of the midline structures, nor abnormal extra-axial fluid collections are shown. Encephalomalacia is seen in the left periventricular white matter, unchanged. Imaged portions of the paranasal sinuses and mastoid air cells are clear. The orbits appear normal. There are no acute fractures of the calvaria or scalp swelling. Impression: No acute intracranial hemorrhage, no evidence of acute territorial infarction or other acute intracranial disease process. ACT 112: Negative or not required by law. Electronically signed by: Clarke Bernstein M.D. 03/28/2022 7:52 PM Renal Ultrasound 03/28/22 19:23 US renal/blad retro comp HISTORY: 71 years-old Female weak, KEEGAN on CKD acute kidney injury COMPARISON: CT abdomen and pelvis 07/17/2015 TECHNIQUE: Multiple real-time sonographic images of the kidneys and urinary bladder were obtained assessing grayscale appearance and color flow FINDINGS: The right kidney measures 10.6 x 4.2 x 4.2 cm and is unremarkable without renal calculi, hydronephrosis or suspicious mass lesion. Cortical medullary different iation is preserved. The left kidney measures 9.5 x 4.5 x 4.0 cm and is unremarkable without renal calculi, hydronephrosis or suspicious mass lesion. Cortical medullary differentiation is preserved. Partial distention of the urinary bladder with mild wall thickening. Ureteral jets are not visualized. IMPRESSION: No renal calculi or hydronephrosis. ACT 112: Negative or not required by law. The above report was generated using voice recognition software. It may contain grammatical, syntax or spelling errors. Electronically signed by: Boo Hammond M.D. 03/29/2022 7:01 AM I & O Totals 24 Hours 03/28/22 03/29/22 03/30/22 06:59 06:59 06:59 Intake Total 1560 / 1560 1000 / 1000 Balance 1560 / 1560 1000 / 1000 Cumulative 03/28/22 17:27 thru 03/29/22 07:57 Intake Total 2560 Balance 2560 RT Ventilator Mngmt (Last Documented) Ventilator Ordered Settings Respiratory Rate 18 03/29/22 07:43 Ventilator - PT Measurements Respiratory Rate 18 PG Care Time/CCT Total # of Minutes Spent Total Time Spent with Patient: Total time spent is greater than 50% in coordination of care (as documented) at patient's floor/unit and/or counseling patient: Coding Level of Care Code 26159 Subseq Hosp Care Lvl 2 Diagnoses Acute kidney injury superimposed on CKD N17.9; N18.9 SOB (shortness of breath) on exertion R06.02 Stage 3b chronic kidney disease N18.32 Hyperkalemia E87.5 GERD without esophagitis K21.9 Diabetes mellitus type 2, uncontrolled E11.65 Glycemic state: with hyperglycemia Dyslipidemia E78.5 Hyperthyroidism E05.90 Major depressive disorder, recurrent severe without psychotic features F33.2 (1) Diabetes mellitus type 2, uncontrolled Glycemic state: with hyperglycemia Qualified Code(s): E11.65 - Type 2 diabetes mellitus with hyperglycemia
[2022-03-29] MEDS ORDERED: PATIROMER CALCIUM SORBITEX 8.4 GM PACK PO STA (17:00)
--- NOTE | 2022-03-29 19:52 | Billing Data ---
Date of Service March 29, 2022 Coding Level of Care Code 04787 Initial Inpt Care Lvl 3
[2022-03-29 23:36] LABS: BUN Creatinine Ratio 21.7 (10-20); Calcium 7.6 mg/dl (8.5-10.1); Creatinine Clr Calc Pharmacy 14.7 ml/min; Est GFR (African American) 16.7 ml/min; Est GFR (Non-African American) 14.4 ml/min; Potassium 5.8 mmol/L (3.5-5.1)
[2022-03-30] MEDS: SODIUM CHLORIDE 0.9% 1000ML 1,000 ML IV SCH ×2 (01:08→10:13)
[2022-03-30] MEDS: ACETAMINOPHEN 325 MG TAB PO PRN (01:08)
[2022-03-30 08:14] LABS: Basophils # (auto) 0.06 K/uL (0-0.2); Basophils % (auto) 0.5 %; Eosinophils # (auto) 0.39 K/uL (0-0.50); Eosinophils % (auto) 3.6 %; Hematocrit (blood only) 24.9 % (34.1-44.9); Hemoglobin 7.9 g/dl (12.0-16.0); Immature Granulocytes # (auto) 0.04 K/uL (0.00-0.02); Immature Granulocytes % (auto) 0.4 %; Lymphocytes # (auto) 2.09 K/uL (1.2-3.4); Lymphocytes % (auto) 19.1 %; Mean Corpuscular Hemoglobin 31.5 pg (25.0-34.0); Mean Corpuscular Hgb Conc 31.7 g/dL (32.0-36.0); Mean Corpuscular Volume 99.2 fL (80.0-100.0); Mean Platelet Volume 11.3 fL (9.4-12.3); Monocytes # (auto) 1.19 K/uL (0.24-0.82); Monocytes % (auto) 10.9 %; Neutrophils # (auto) 7.15 K/uL (1.4-6.5); Neutrophils % (auto) 65.5 %; Platelet Count 279 K/uL (130-400); RDW Coefficient of Variation 13.6 % (11.5-14.5); RDW Standard Deviation 49.2 fL (36.4-46.3); Red Blood Count 2.51 M/uL (3.93-5.22); White Blood Count 10.92 K/ul (4.8-10.8)
[2022-03-30 08:32] LABS: BUN Creatinine Ratio 24.1 (10-20); Calcium 7.8 mg/dl (8.5-10.1); Creatinine Clr Calc Pharmacy 16.6 ml/min; Est GFR (African American) 19.3 ml/min; Est GFR (Non-African American) 16.6 ml/min; Potassium 5.6 mmol/L (3.5-5.1)
[2022-03-30 08:48] LABS: RBC Morphology Unremarkable
[2022-03-30] MEDS: methIMAzole 5 MG TABLET PO SCH (09:12)
[2022-03-30] MEDS: LABETALOL HCL 200 MG TAB PO SCH ×2 (09:12→20:01)
[2022-03-30] MEDS: VENLAFAXINE HCL XR 150 MG CAPXR PO SCH (09:12)
[2022-03-30] MEDS: CALCITRIOL 0.25 MCG CAPSULE PO SCH (09:12)
[2022-03-30] MEDS: KETOROLAC 0.5% OP SOLN 5 ML BTL OPB SCH ×2 (09:14→20:01)
[2022-03-30] MEDS: INSULIN ASPART PER UNIT SC SCH ×4 (09:39→20:43)
[2022-03-30] MEDS: LANTUS PER UNIT CHARGE SQ SCH ×2 (09:40→20:43)
[2022-03-30] MEDS ORDERED: STAT IV STA (10:17)
[2022-03-30] MEDS ORDERED: OXYMETAZOLINE 0.05% 30 ML BTL PRN (10:28)
--- NOTE | 2022-03-30 10:28 | Hospitalist Progress Note ---
Date of Service March 30, 2022 Assessment & Plan (1) Acute kidney injury superimposed on CKD: Plan: -Patient has a h/o CKD stage 3b with baseline creatinine of 1.2-1.3, though recently has been in the 1.5-1.7 range. -Cr on admission was 3.14 with a BUN of 72. Patient most likely has a KEEGAN on CKD due to not eating and drinking much lately and may have had a viral illness some days ago. But also has underlying nephrotic syndrome Renal US negative Circulating Process Inspector improved today down to 2.7, hyperkalemia remains at 5.6 but improved after Patiromer and previous treatment with insulin UA no evidence of infection Is making urine -with hyponatremia improving, borderline met acidosis -dc NS and start isotonic bicarb gtt at 80mL/hr x 1 L -consult Nephrology -give another dose of Patiromer -change to low K+ diet -repeat BMP at 1600 today -continue to hold nephrotoxic meds (2) SOB (shortness of breath) on exertion: Plan: - Most likely 2/2 KEEGAN or acute viral illness. COuld be due to worsening anemia - No other cardiac symptoms or concerns on history or physical exam. -lungs clear on exam, CXR clear -COVID/Flu/RSV neg on 03/28 -check [employer] resp panel PCR now that has nasal congestion, nasal congestion, cough--> has a roomate and would need isolation precautions if positive -remains intermittently on supplemental O2 -consider ECHO (3) Hyperkalemia: Plan: as above, 2/2 KEEGAN (4) Anemia: Plan: hgb down slightly to 7.9 but is likely anemia of CKD no known blood loss check iron studies, B12, folate in AM follow CBC (5) Diabetes mellitus type 2, uncontrolled: Plan: - Patient's home regimen held on admission including dapagliflozin, NPH 70/30 - Continue BSG checks, sliding-scale insulin,Lantus, hypoglycemic protocol - Patient has not been checking her blood sugars at home and admits to not eating and drinking recently. - Hemoglobin A1C 7.2%-well controlled -ADA diet (6) Hypertension: Plan: -continue to hold lisinopril, furosemide due to KEEGAN -BPs stable -amlodipine on hold -Will continue labetalol (7) Fatigue: Plan: - Most likely due to illness or depression. Will see how patient does once her KEEGAN improves. (8) Nephrotic syndrome: Plan: as above, follows with Nephrology (9) Dyslipidemia: Plan: -ok to continue home statin (10) Hyperthyroidism: Plan: -Continue at home methimazole -TSH was 4.7. (11) Major depressive disorder, recurrent severe without psychotic features: Plan: -continue at home venlafaxine (12) GERD without esophagitis: Plan: restart home PPI (13) URI (upper respiratory infection): Plan: checking [employer] as above start Afrin nasal spray Plan DVT proph-heparin SQ to be added on today given high risk ger to nephrotic syndrome Dispo-continued stay Admission and Anticipated Discharge Date Admission Date: March 28, 2022 Subjective Pt reports she is having watery eyes and nasal congestion, slight cough., Her SOB is not much better than when she came in. Moving bowels, no abd pains, no leg swelling over her normal. Denies CP. No fevers or headache, not lightheaded. Review of Systems Review of Systems: All systems reviewed & are unremarkable except as noted in HPI & below Physical Exam Constitutional: WD/WN, vitals as above Eyes: + anicteric sclerae; no conjunctival abnormality (with watery discharge bilat) ENMT: Nose: no external nose abnormality Neck: trachea midline, no thyromegaly Respiratory: normal respiratory effort, lungs clear to auscultation Cardiovascular: Rate/Rhythm: regular rate and regular rhythm Heart Sounds: no murmur Extremities: + edema (trace pitting edema ankles and distal legs bilat) Chest (Breasts): Chest: normal inspection of chest Gastrointestinal (Abdomen): normal bowel sounds, soft, nontender, no hepatosplenomegaly Musculoskeletal: Extremities: extremities normal to inspection; no cyanosis and no clubbing Skin: no rashes, warm and dry Neurologic: moves all extremities and awake; no focal motor deficits Psychiatric: A+Ox3, euthymic affect Lymphatic: no lymphedema Results & Data Results & Data ([facility]) Vital Signs (Past 12 Hours) Vital Signs Temp Pulse Resp BP Pulse Ox O2 Del Method O2 Flow Rate 03/30/22 07:09 91 Nasal Cannula 2 03/30/22 07:08 36.7 C 85 20 121/57 L 79 L Room Air Laboratory Results 12/23/22 12/23/22 12/23/22 Range/Units 08:20 07:35 07:35 WBC 10.92 H (4.8-10.8) K/ul RBC 2.51 L (3.93-5.22) M/uL Hgb 7.9 L (12.0-16.0) g/dl Hct 24.9 L (34.1-44.9) % MCV 99.2 (80.0-100.0) fL MCH 31.5 (25.0-34.0) pg MCHC 31.7 L (32.0-36.0) g/dL RDW Std Deviation 49.2 H (36.4-46.3) fL RDW Coeff of Emil 13.6 (11.5-14.5) % Plt Count 279 (130-400) K/uL MPV 11.3 (9.4-12.3) fL Immature Gran % (Auto) 0.4 % Neut % (Auto) 65.5 % Lymph % (Auto) 19.1 % [place] % (Auto) 10.9 % Eos % (Auto) 3.6 % Baso % (Auto) 0.5 % Neut # (Auto) 7.15 H (1.4-6.5) K/uL Lymph # (Auto) 2.09 (1.2-3.4) K/uL [place] # (Auto) 1.19 H (0.24-0.82) K/uL Eos # (Auto) 0.39 (0-0.50) K/uL Baso # (Auto) 0.06 (0-0.2) K/uL Immature Gran # (Auto) 0.04 H (0.00-0.02) K/uL RBC Morphology Unremarkable Sodium 137 (136-145) mmol/L Potassium 5.6 H (3.5-5.1) mmol/L Chloride 110 H (98-107) mmol/L Carbon Dioxide 21 (21-32) mmol/L Anion Gap 6 (3-11) BUN 66 H (6-23) mg/dl Creatinine 2.74 H D (0.6-1.2) mg/dl Est Cr Clr Drug Dosing 16.6 ml/min Est GFR ( Amer) 19.3 ml/min Est GFR (Non-Af Amer) 16.6 ml/min BUN/Creatinine Ratio 24.1 H (10-20) Glucose 150 H (70-99(Fasting)) mg/dl POC Glucose 150 H (70-99) mg/dl Calcium 7.8 L (8.5-10.1) mg/dl 03/29/22 03/29/22 03/29/22 Range/Units 22:52 20:49 17:15 WBC (4.8-10.8) K/ul RBC (3.93-5.22) M/uL Hgb (12.0-16.0) g/dl Hct (34.1-44.9) % MCV (80.0-100.0) fL MCH (25.0-34.0) pg MCHC (32.0-36.0) g/dL RDW Std Deviation (36.4-46.3) fL RDW Coeff of Emil (11.5-14.5) % Plt Count (130-400) K/uL MPV (9.4-12.3) fL Immature Gran % (Auto) % Neut % (Auto) % Lymph % (Auto) % [place] % (Auto) % Eos % (Auto) % Baso % (Auto) % Neut # (Auto) (1.4-6.5) K/uL Lymph # (Auto) (1.2-3.4) K/uL [place] # (Auto) (0.24-0.82) K/uL Eos # (Auto) (0-0.50) K/uL Baso # (Auto) (0-0.2) K/uL Immature Gran # (Auto) (0.00-0.02) K/uL RBC Morphology Sodium 135 L (136-145) mmol/L Potassium 5.8 H (3.5-5.1) mmol/L Chloride 106 (98-107) mmol/L Carbon Dioxide 22 (21-32) mmol/L Anion Gap 7 (3-11) BUN 67 H (6-23) mg/dl Creatinine 3.09 H (0.6-1.2) mg/dl Est Cr Clr Drug Dosing 14.7 ml/min Est GFR ( Amer) 16.7 ml/min Est GFR (Non-Af Amer) 14.4 ml/min BUN/Creatinine Ratio 21.7 H (10-20) Glucose 189 H (70-99(Fasting)) mg/dl POC Glucose 221 H 71 (70-99) mg/dl Calcium 7.6 L (8.5-10.1) mg/dl 03/29/22 03/29/22 03/29/22 Range/Units 16:57 16:56 12:12 WBC (4.8-10.8) K/ul RBC (3.93-5.22) M/uL Hgb (12.0-16.0) g/dl Hct (34.1-44.9) % MCV (80.0-100.0) fL MCH (25.0-34.0) pg MCHC (32.0-36.0) g/dL RDW Std Deviation (36.4-46.3) fL RDW Coeff of Emil (11.5-14.5) % Plt Count (130-400) K/uL MPV (9.4-12.3) fL Immature Gran % (Auto) % Neut % (Auto) % Lymph % (Auto) % [place] % (Auto) % Eos % (Auto) % Baso % (Auto) % Neut # (Auto) (1.4-6.5) K/uL Lymph # (Auto) (1.2-3.4) K/uL [place] # (Auto) (0.24-0.82) K/uL Eos # (Auto) (0-0.50) K/uL Baso # (Auto) (0-0.2) K/uL Immature Gran # (Auto) (0.00-0.02) K/uL RBC Morphology Sodium (136-145) mmol/L Potassium (3.5-5.1) mmol/L Chloride (98-107) mmol/L Carbon Dioxide (21-32) mmol/L Anion Gap (3-11) BUN (6-23) mg/dl Creatinine (0.6-1.2) mg/dl Est Cr Clr Drug Dosing ml/min Est GFR ( Amer) ml/min Est GFR (Non-Af Amer) ml/min BUN/Creatinine Ratio (10-20) Glucose (70-99(Fasting)) mg/dl POC Glucose 66 L* 66 L* 193 H (70-99) mg/dl Calcium (8.5-10.1) mg/dl PG Care Time/CCT Total # of Minutes Spent Total Time Spent with Patient: Total time spent is greater than 50% in coordination of care (as documented) at patient's floor/unit and/or counseling patient: Coding Level of Care Code 45917 Subseq Hosp Care Lvl 3 Diagnoses Acute kidney injury superimposed on CKD N17.9; N18.9 SOB (shortness of breath) on exertion R06.02 Hyperkalemia E87.5 Anemia D64.9 Diabetes mellitus type 2, uncontrolled E11.65 Glycemic state: with hyperglycemia Hypertension I10 Hypertension type: unspecified Fatigue R53.83 Fatigue type: unspecified Nephrotic syndrome N04.9 Dyslipidemia E78.5 Hyperthyroidism E05.90 Major depressive disorder, recurrent severe without psychotic features F33.2 GERD without esophagitis K21.9 URI (upper respiratory infection) J06.9 (1) Diabetes mellitus type 2, uncontrolled Glycemic state: with hyperglycemia Qualified Code(s): E11.65 - Type 2 diabetes mellitus with hyperglycemia (2) Hypertension Hypertension type: unspecified Qualified Code(s): I10 - Essential (primary) hypertension (3) Fatigue Fatigue type: unspecified Qualified Code(s): R53.83 - Other fatigue
[2022-03-30] MEDS ORDERED: SODIUM BICARBONATE 8.4% 150 MEQ in DEXTROSE 5% 1,000 ML IV SCH (10:30)
[2022-03-30] MEDS: PATIROMER CALCIUM SORBITEX 8.4 GM PACK PO SCH (11:44)
[2022-03-30] MEDS: PANTOprazole 40 MG TAB PO SCH (11:44)
[2022-03-30] MEDS: ROSUVASTATIN CALCIUM 10 MG TAB PO SCH (11:44)
[2022-03-30 12:34] LABS: Adenovirus PCR Not Detected (NotDetected); Bordetella parapertussis PCR Not Detected (NotDetected); Bordetella pertussis PCR Not Detected (NotDetected); Chlamydia pneumoniae PCR Not Detected (NotDetected); Coronavirus 229E PCR Not Detected (NotDetected); Coronavirus CoV-2 (COVID19)PCR Not Detected (NotDetected); Coronavirus HKU1 PCR Not Detected (NotDetected); Coronavirus NL63 PCR Not Detected (NotDetected); Coronavirus OC43PCR Not Detected (NotDetected); Human Metapneumovirus PCR Not Detected (NotDetected); Influenza A PCR Not Detected (NotDetected); Influenza B PCR Not Detected (NotDetected); Mycoplasma pneumoniae PCR Not Detected (NotDetected); Parainfluenza Virus 1 PCR Not Detected (NotDetected); Parainfluenza Virus 2 PCR Not Detected (NotDetected); Parainfluenza Virus 3 PCR Not Detected (NotDetected); Parainfluenza Virus 4 PCR Not Detected (NotDetected); Respiratory Syncytial VirusPCR Not Detected (NotDetected); Rhinovirus/Enterovirus PCR Not Detected (NotDetected)
--- NOTE | 2022-03-30 13:32 | Nephrology Consultation ---
Date of Consultation March 30, 2022 Assessment & Plan (1) Acute kidney injury superimposed on CKD: Non-oliguric. Consistent with prerenal physiology from volume depletion and complicated by ATN. There is no emergent indication for renal replacement therapy. Medications are appropriately dosed for kidney function. NSS IVF has been stopped. Volume status replete. IV NaHCO3 is being provided for NAGMA associated with IV saline. Document strict I/O's. Repeat metabolic profile scheduled for this afternoon. Check CK with next labs. Continue to hold dapagliflozin, lisinopril, and diuretics. (2) Hyperkalemia: Patiromer 8.4 grams daily. Fluids to encourage urine output and HCO3 replacement. Low potassium diet. Repeat metabolic profile this afternoon. If K remains >4, provide an additional dose of patiromer. (3) CKD (chronic kidney disease) stage 3, GFR 30-59 ml/min: Followed by Dr. Paige. Biopsy proven advanced DKD. Baseline creatinine 1.6-1.9 mg/dL. Proteinuria > 8 grams. (4) Diabetic nephropathy associated with type 2 diabetes mellitus: As above. Hold IVORY and SGLT2i in setting of KEEGAN. (5) Anemia: Acute on chronic. Denies any signs of GI blood loss. Iron profile to be checked with AM labs. Epogen 21133 units now. Repeat H/H tomorrow AM. (6) Secondary hyperparathyroidism: Continue calcitriol 0.25 mcg MWF as Rx. Calcium remains normal. History of Present Illness Reason for Consultation: KEEGAN/CKD Requesting Physician: Nelida Hernández MD Attending Physician: Nelida Hernández MD History of Present Illness Mrs. Elida Mei (Elaine) is a 71 year-old female with CKD 3b A3 attributed to biopsy proven DKD. Padmaja follows in the nephrology clinic with Dr. Paige. Renal biopsy performed by Dr. Luke at [facility] in February 2022. Follow up with Dr. Paige completed at the end of February. Baseline creatinine has been ~1.6-1.9 mg/dL. Proteinuria quantified at >8 grams. Kidney pathology demonstrating advanced chronic changes, global glomerulosclerosis 11/05, IFTA 30- 40%, moderate arteriolosclerosis. Medical history is notable for insulin dependent diabetes mellitus II, hypertension, morbid obesity, and hypothyroidism. Medical therapy includes lisinopril, dapagliflozin, rosuvastatin. BP controlled with lisinopril in addition to labetalol and amlodipine. Furosemide 20 mg twice daily has been used to control volume status. Padmaja is also maintained on SPS weekly for chronic hyperkalemia. She had a renal artery duplex in the past. It was a suboptimal study due to habitus but no stenosis was appreciated. Complications of CKD also include anemia and sPTH. Padmaja is treated with calcitriol. She has not required ANETTE therapy. She was referred to the ER at [facility] on March 28 with laboratory studies demonstrating acute kidney injury, hyperkalemia, and acute on chronic anemia. Renal US demonstrated the kidneys to be unobstructed. Padmaja has been non-oliguric. She has recently been struggling with a viral illness and URI symptoms which are improving. Supportive care has been provided including IVF. Dapagliflozin, lisinopril, and furosemide have been held. Amlodipine also held. Today, Padmaja is starting to report some increasing edema in her legs. She also reports persistent sinus congestion and associated headache. She denies chest congestion, cough, or shortness of breath. Appetite is good. Serum creatinine has improved from 3.14 mg/dL to 2.7 mg/dL. Potassium remains slightly elevated. Allergies Allergy/AdvReac Type Severity Reaction Status Date / Time No Known Drug Allergies Allergy Unknown Verified 03/28/22 20:43 Home Medications Medication Instructions Recorded Confirmed Type insulin human U-100 NPH-regulr 57 unit (0.57 mL) subcut BID #10 mL 01/16/21 03/28/22 Rx 70-30 mix 100 unit/mL subcutaneous susp (Novolin 70/30 U-100 Insulin) acetaminophen 500 mg tablet 1,000 mg PO Q6H PRN Pain 06/19/21 03/28/22 History amlodipine 10 mg tablet 10 mg PO QAM #90 tabs 10/16/21 03/28/22 Rx rosuvastatin 10 mg tablet 10 mg PO QAM #90 tabs 11/23/21 03/28/22 Rx calcitriol 0.25 mcg capsule 0.25 mcg PO 3XWK #36 caps 02/21/22 03/28/22 Rx furosemide 20 mg tablet 20 mg PO BID #180 tabs 02/26/22 03/28/22 Rx dapagliflozin 10 mg tablet 10 mg PO DAILY #90 tabs 03/06/22 03/28/22 Rx (Farxiga) labetalol 200 mg tablet 200 mg PO BID #180 tabs 03/06/22 03/28/22 Rx pantoprazole 40 mg tablet,delayed 40 mg PO QAM #90 tabs 03/09/22 03/28/22 Rx release lisinopril 40 mg tablet 40 mg PO QAM #90 tabs 03/15/22 03/28/22 Rx methimazole 10 mg tablet 10 mg PO QAM #90 tabs 03/15/22 03/28/22 Rx venlafaxine 150 mg 150 mg PO QAM #90 caps 03/15/22 03/28/22 Rx capsule,extended release 24 hr (Effexor XR) ketorolac 0.5 % eye drops 1 drp OPB BID 03/28/22 03/28/22 History sodium polystyrene sulfonate 30 g PO WK 03/28/22 03/28/22 History Patient History Medical History Acute kidney injury Anemia Arthritis Diabetes mellitus type 2, uncontrolled IDDM Dyslipidemia GERD without esophagitis HNP (herniated nucleus pulposus), lumbar Hyperglycemia Hyperkalemia Hypertension Hyperthyroidism Major depressive disorder, recurrent severe without psychotic features Melanoma of nose Morbid obesity with BMI of 40.0-44.9, adult Nephrotic syndrome Recurrent UTI Stage 3b chronic kidney disease Vitamin D deficiency Surgical History History of bilateral cataract extraction History of colonoscopy History of melanoma excision History of repair of left rotator cuff History of repair of right rotator cuff History of tooth extraction all teeth removed S/P cholecystectomy S/P tonsillectomy S/P tubal ligation Status post trigger finger release Family History Father Prostate cancer Diabetes Myocardial infarction Lung cancer Mother Diabetes Alzheimer disease Myocardial infarction Hypertension Brother COPD (chronic obstructive pulmonary disease) Other No family history of adverse response to anesthesia Denies family history of Ovarian cancer Breast cancer Colorectal cancer Social History Smoking Status: Never smoker Second Hand Exposure: No; Hx Alcohol Use: No Hx Substance Use: No Preferred Language: Tajik Communication Ability: Effective Visual Impairment: No Limitations Hearing Ability: Normal Criminal Justice [employer] Required: No Beliefs That Will Affect Care: None marital status: Current Living Situation: Spouse current occupational status: retired current occupation: retired - worked at [employer] Other Information That Helps Us Care for You: No Feels Safe at Home: Yes Safety Concerns: Feels Safe At This Time Childhood Exposure to Second-Hand Smoke: No caffeine: Yes (Soda x 10 cans per day.) during the past year weight has: remained stable Dental Care, Regularly: No Physical Activity Frequency: Daily Physical Activity Frequency Comment: house chores Seatbelt Use: always Sunscreen Use: No Assistive Devices: None Review of Systems Review of Systems: All systems reviewed & are unremarkable except as noted in HPI & below Physical Exam Constitutional: well developed and + morbidly obese; no acute distress Eyes: + anicteric sclerae; no corneal abnormality ENMT: Mouth: no oral mucosal abnormality and oral mucous membranes not dry Neck: normal visual inspection and trachea midline Respiratory: normal respiratory effort Auscultation: lungs clear to auscultation bilaterally Cardiovascular: Rate/Rhythm: regular rate Heart Sounds: normal S1 and n ormal S2 Extremities: + edema Musculoskeletal: Extremities: no cyanosis and no clubbing Skin: normal turgor; no lesions Neurologic: Motor/Sensory: no tremor and no asterixis Psychiatric: Orientation: alert and oriented x 3 Results & Data ([facility]) Vital Signs (Past 12 Hours) Vital Signs Temp Pulse Resp BP Pulse Ox O2 Del Method O2 Flow Rate 03/30/22 07:09 91 Nasal Cannula 2 03/30/22 07:08 36.7 C 85 20 121/57 L 79 L Room Air Laboratory Results Laboratory Results - last 24 hr 03/29/22 03/29/22 03/29/22 16:56 16:57 17:15 WBC RBC Hgb Hct MCV MCH MCHC RDW Std Deviation RDW Coeff of Emil Plt Count MPV Immature Gran % (Auto) Neut % (Auto) Lymph % (Auto) [place] % (Auto) Eos % (Auto) Baso % (Auto) Neut # (Auto) Lymph # (Auto) [place] # (Auto) Eos # (Auto) Baso # (Auto) Immature Gran # (Auto) RBC Morphology Sodium Potassium Chloride Carbon Dioxide Anion Gap BUN Creatinine Est Cr Clr Drug Dosing Est GFR ( Amer) Est GFR (Non-Af Amer) BUN/Creatinine Ratio Glucose POC Glucose 66 L* 66 L* 71 Calcium Adenovirus (PCR) B. pertussis DNA (PCR) B.parapertussis DNA PCR C. pneumoniae DNA (PCR) Coronavirus OC43 (PCR) Coronavirus HKU1 (PCR) Coronavirus 229E (PCR) SARS-CoV-2 (PCR) Coronavirus NL63 (PCR) Human Metapneumovir PCR Influenza Type A (PCR) Influenza Type B (PCR) M. pneumoniae (PCR) Parainfluenza 1 (PCR) Parainfluenza 2 (PCR) Parainfluenza 3 (PCR) Parainfluenza 4 (PCR) RSV (PCR) Entero/Rhino (PCR) 03/29/22 03/29/22 03/30/22 20:49 22:52 07:35 WBC 10.92 H RBC 2.51 L Hgb 7.9 L Hct 24.9 L MCV 99.2 MCH 31.5 MCHC 31.7 L RDW Std Deviation 49.2 H RDW Coeff of Emil 13.6 Plt Count 279 MPV 11.3 Immature Gran % (Auto) 0.4 Neut % (Auto) 65.5 Lymph % (Auto) 19.1 [place] % (Auto) 10.9 Eos % (Auto) 3.6 Baso % (Auto) 0.5 Neut # (Auto) 7.15 H Lymph # (Auto) 2.09 [place] # (Auto) 1.19 H Eos # (Auto) 0.39 Baso # (Auto) 0.06 Immature Gran # (Auto) 0.04 H RBC Morphology Unremarkable Sodium 135 L Potassium 5.8 H Chloride 106 Carbon Dioxide 22 Anion Gap 7 BUN 67 H Creatinine 3.09 H Est Cr Clr Drug Dosing 14.7 Est GFR ( Amer) 16.7 Est GFR (Non-Af Amer) 14.4 BUN/Creatinine Ratio 21.7 H Glucose 189 H POC Glucose 221 H Calcium 7.6 L Adenovirus (PCR) B. pertussis DNA (PCR) B.parapertussis DNA PCR C. pneumoniae DNA (PCR) Coronavirus OC43 (PCR) Coronavirus HKU1 (PCR) Coronavirus 229E (PCR) SARS-CoV-2 (PCR) Coronavirus NL63 (PCR) Human Metapneumovir PCR Influenza Type A (PCR) Influenza Type B (PCR) M. pneumoniae (PCR) Parainfluenza 1 (PCR) Parainfluenza 2 (PCR) Parainfluenza 3 (PCR) Parainfluenza 4 (PCR) RSV (PCR) Entero/Rhino (PCR) 03/30/22 03/30/22 03/30/22 07:35 08:20 11:00 WBC RBC Hgb Hct MCV MCH MCHC RDW Std Deviation RDW Coeff of Emil Plt Count MPV Immature Gran % (Auto) Neut % (Auto) Lymph % (Auto) [place] % (Auto) Eos % (Auto) Baso % (Auto) Neut # (Auto) Lymph # (Auto) [place] # (Auto) Eos # (Auto) Baso # (Auto) Immature Gran # (Auto) RBC Morphology Sodium 137 Potassium 5.6 H Chloride 110 H Carbon Dioxide 21 Anion Gap 6 BUN 66 H Creatinine 2.74 H D Est Cr Clr Drug Dosing 16.6 Est GFR ( Amer) 19.3 Est GFR (Non-Af Amer) 16.6 BUN/Creatinine Ratio 24.1 H Glucose 150 H POC Glucose 150 H Calcium 7.8 L Adenovirus (PCR) Not Detected B. pertussis DNA (PCR) Not Detected B.parapertussis DNA PCR Not Detected C. pneumoniae DNA (PCR) Not Detected Coronavirus OC43 (PCR) Not Detected Coronavirus HKU1 (PCR) Not Detected Coronavirus 229E (PCR) Not Detected SARS-CoV-2 (PCR) Not Detected Coronavirus NL63 (PCR) Not Detected Human Metapneumovir PCR Not Detected Influenza Type A (PCR) Not Detected Influenza Type B (PCR) Not Detected M. pneumoniae (PCR) Not Detected Parainfluenza 1 (PCR) Not Detected Parainfluenza 2 (PCR) Not Detected Parainfluenza 3 (PCR) Not Detected Parainfluenza 4 (PCR) Not Detected RSV (PCR) Not Detected Entero/Rhino (PCR) Not Detected 03/30/22 12:12 WBC RBC Hgb Hct MCV MCH MCHC RDW Std Deviation RDW Coeff of Emil Plt Count MPV Immature Gran % (Auto) Neut % (Auto) Lymph % (Auto) [place] % (Auto) Eos % (Auto) Baso % (Auto) Neut # (Auto) Lymph # (Auto) [place] # (Auto) Eos # (Auto) Baso # (Auto) Immature Gran # (Auto) RBC Morphology Sodium Potassium Chloride Carbon Dioxide Anion Gap BUN Creatinine Est Cr Clr Drug Dosing Est GFR ( Amer) Est GFR (Non-Af Amer) BUN/Creatinine Ratio Glucose POC Glucose 174 H Calcium Adenovirus (PCR) B. pertussis DNA (PCR) B.parapertussis DNA PCR C. pneumoniae DNA (PCR) Coronavirus OC43 (PCR) Coronavirus HKU1 (PCR) Coronavirus 229E (PCR) SARS-CoV-2 (PCR) Coronavirus NL63 (PCR) Human Metapneumovir PCR Influenza Type A (PCR) Influenza Type B (PCR) M. pneumoniae (PCR) Parainfluenza 1 (PCR) Parainfluenza 2 (PCR) Parainfluenza 3 (PCR) Parainfluenza 4 (PCR) RSV (PCR) Entero/Rhino (PCR) Diagnostic Findings US renal/blad retro comp COMPARISON: CT abdomen and pelvis 07/17/2015 FINDINGS: The right kidney measures 10.6 x 4.2 x 4.2 cm and is unremarkable without renal calculi, hydronephrosis or suspicious mass lesion. Cortical medullary differentiation is preserved. The left kidney measures 9.5 x 4.5 x 4.0 cm and is unremarkable without renal calculi, hydronephrosis or suspicious mass lesion. Cortical medullary differentiation is preserved. Partial distention of the urinary bladder with mild wall thickening. Ureteral jets are not visualized. IMPRESSION: No renal calculi or hydronephrosis. PG Care Time/CCT Total # of Minutes Spent Total Time Spent with Patient: Total time spent is greater than 50% in coordination of care (as documented) at patient's floor/unit and/or counseling patient: Coding Level of Care Code 15775 Inpt Consult Level 4 Diagnoses Acute kidney injury superimposed on CKD N17.9; N18.9 Hyperkalemia E87.5 CKD (chronic kidney disease) stage 3, GFR 30-59 ml/min N18.3 Diabetic nephropathy associated with type 2 diabetes mellitus E11.21 Anemia D64.9 Secondary hyperparathyroidism N25.81
[2022-03-30] MEDS ORDERED: EPOETIN ALFA 20,000 UNITS/ML VIAL SQ STA (13:41)
[2022-03-30] MEDS ORDERED: ALBUT/IPRATROP 3MG/0.5MG NEB 3 ML VIAL NEB STA (15:03)
[2022-03-30] MEDS ORDERED: FUROSEMIDE 40 MG/4 ML VIAL IV ONE (15:05)
--- NOTE | 2022-03-30 15:33 | XRay Report ---
XR chest 1V portable HISTORY: Shortness of breath. Hypoxia. COMPARISON: Chest 03/28/2022. FINDINGS: No pneumothorax. Trace bilateral pleural effusions. The heart remains mildly enlarged. Ther e is progressive interstitial/vascular thickening consistent with mild pulmonary edema. Mild dilatati on of the upper esophagus is noted. IMPRESSION: Interval progression of the mild interstitial pulmonary edema and trace bilateral pleural effusions. ACT 112: Negative or not required by law. Electronically signed by: Malcom Su M.D. 03/30/2022 3:31 PM
--- NOTE | 2022-03-30 16:03 | Electrocardiogram Report ---
Test Reason : Blood Pressure : / mmHG Vent. Rate : 066 BPM Atrial Rate : 066 BPM P-R Int : 152 ms QRS Dur : 074 ms QT Int : 392 ms P-R-T Axes : 061 027 038 degrees QTc Int : 410 ms Poor data quality, interpretation may be adversely affected Sinus rhythm with Premature atrial complexes Otherwise normal ECG When compared with ECG of 22-JUN-2021 05:03, Premature atrial complexes are now Present Confirmed by Efrain Salazar ([id number]) on 03/30/2022 4:03:10 PM Referred By: REFERRED SELF Confirmed By:Efrain Salazar
[2022-03-30 16:31] LABS: BUN Creatinine Ratio 23.1 (10-20); Calcium 8.8 mg/dl (8.5-10.1); Creatinine Clr Calc Pharmacy 18.1 ml/min; Est GFR (African American) 21.4 ml/min; Est GFR (Non-African American) 18.5 ml/min; Potassium 5.6 mmol/L (3.5-5.1)
[2022-03-30] MEDS ORDERED: ALBUT/IPRATROP 3MG/0.5MG NEB 3 ML VIAL ONE (18:27)
[2022-03-30] MEDS: HEPARIN SOD 5,000 UNIT/0.5 ML VIAL SQ SCH (20:00)
[2022-03-30] MEDS: SODIUM BICARBONATE 650 MG TAB PO SCH (20:01)
[2022-03-31] MEDS ORDERED: ALBUT/IPRATROP 3MG/0.5MG NEB 3 ML VIAL NEB STA (04:06)
--- NOTE | 2022-03-31 06:29 | Electrocardiogram Report ---
Test Reason : Blood Pressure : / mmHG Vent. Rate : 072 BPM Atrial Rate : 072 BPM P-R Int : 166 ms QRS Dur : 090 ms QT Int : 384 ms P-R-T Axes : 071 052 049 degrees QTc Int : 420 ms Sinus rhythm with Premature atrial complexes Otherwise normal ECG When compared with ECG of 28-MAR-2022 17:48, No significant change was found Confirmed by Efrain Salazar ([id number]) on 03/31/2022 6:29:31 AM Referred By: REFERRED SELF Confirmed By:Efrain Salazar
[2022-03-31 06:53] LABS: Basophils # (auto) 0.06 K/uL (0-0.2); Basophils % (auto) 0.5 %; Eosinophils # (auto) 0.11 K/uL (0-0.50); Eosinophils % (auto) 0.9 %; Hematocrit (blood only) 24.6 % (34.1-44.9); Hemoglobin 7.8 g/dl (12.0-16.0); Immature Granulocytes # (auto) 0.05 K/uL (0.00-0.02); Immature Granulocytes % (auto) 0.4 %; Lymphocytes # (auto) 1.12 K/uL (1.2-3.4); Mean Corpuscular Hemoglobin 30.7 pg (25.0-34.0); Mean Corpuscular Hgb Conc 31.7 g/dL (32.0-36.0); Mean Corpuscular Volume 96.9 fL (80.0-100.0); Mean Platelet Volume 11.7 fL (9.4-12.3); Monocytes # (auto) 1.33 K/uL (0.24-0.82); Monocytes % (auto) 10.7 %; Neutrophils # (auto) 9.76 K/uL (1.4-6.5); Neutrophils % (auto) 78.5 %; Platelet Count 281 K/uL (130-400); RDW Coefficient of Variation 13.6 % (11.5-14.5); RDW Standard Deviation 48.1 fL (36.4-46.3); Red Blood Count 2.54 M/uL (3.93-5.22); White Blood Count 12.43 K/ul (4.8-10.8)
[2022-03-31 07:22] LABS: Calcium 8.5 mg/dl (8.5-10.1); Creatinine Clr Calc Pharmacy 19.3 ml/min; Est GFR (African American) 23.2 ml/min; Phosphorus 4.3 mg/dl (2.5-4.9); Potassium 5.3 mmol/L (3.5-5.1)
[2022-03-31 07:24] LABS: RBC Morphology Unremarkable
[2022-03-31 07:38] LABS: Ferritin 82.7 ng/ml (8-388)
[2022-03-31] MEDS ORDERED: FUROSEMIDE 40 MG/4 ML VIAL IV ONE (08:11)
[2022-03-31] MEDS: SODIUM BICARBONATE 650 MG TAB PO SCH ×2 (08:49→20:03)
[2022-03-31] MEDS: ROSUVASTATIN CALCIUM 10 MG TAB PO SCH (08:50)
[2022-03-31] MEDS: LABETALOL HCL 200 MG TAB PO SCH ×2 (08:50→20:03)
[2022-03-31] MEDS: VENLAFAXINE HCL XR 150 MG CAPXR PO SCH (08:50)
[2022-03-31] MEDS: HEPARIN SOD 5,000 UNIT/0.5 ML VIAL SQ SCH ×2 (08:50→20:03)
[2022-03-31] MEDS: methIMAzole 5 MG TABLET PO SCH (08:50)
[2022-03-31] MEDS: PANTOprazole 40 MG TAB PO SCH (08:50)
[2022-03-31] MEDS: KETOROLAC 0.5% OP SOLN 5 ML BTL OPB SCH ×2 (08:51→20:04)
[2022-03-31] MEDS: IRON SUCROSE 300 MG in SODIUM CHLORIDE 0.9% 250 ML IV SCH (09:08)
[2022-03-31] MEDS: CYANOCOBALAMIN 1000 MCG/ML VIAL IM SCH (09:08)
[2022-03-31] MEDS: INSULIN ASPART PER UNIT SC SCH ×4 (09:09→21:34)
[2022-03-31] MEDS: LANTUS PER UNIT CHARGE SQ SCH ×2 (09:10→21:34)
--- NOTE | 2022-03-31 09:12 | Nephrology Progress Note ---
Date of Service March 31, 2022 Assessment & Plan (1) Acute kidney injury superimposed on CKD: Plan: * Non-oliguric KEEGAN. Likely ATN due to dehydration in the setting of ACEi therapy * Cr improved to 2.3 this am * Continue to hold dapagliflozin, lisinopril, and diuretics (2) Hyperkalemia: Plan: * Low potassium diet * Continue Patiromer 8.4 grams daily * Will provide oral NaHCO3 (3) CKD (chronic kidney disease) stage 3, GFR 30-59 ml/min: Plan: * Biopsy proven advanced DKD. Baseline creatinine 1.6-1.9 mg/dL w/ UPCR > 8.0 * Will require follow up w/ Dr. Paige following discharge from hospital (4) Diabetic nephropathy associated with type 2 diabetes mellitus: Plan: * Hold IVORY and SGLT2i in setting of KEEGAN (5) Anemia: Plan: * Iron saturation 7% w/ ferritin 83. 1g IV Venofer has been ordered by hospitalist service (6) Secondary hyperparathyroidism: Plan: * Continue calcitriol 0.25 mcg MWF as Rx. Calcium remains normal. Admission and Anticipated Discharge Date Admission Date: March 28, 2022 Subjective Ms. Mei c/o poor appetite and fatigue. She voices no other medical concerns. Review of Systems Constitutional: no fever Eyes: no problem reported Ear, Nose, Mouth, Throat: no problem reported Respiratory: no dyspnea Cardiovascular: no chest pain Gastrointestinal: no abdominal pain Genitourinary: no dysuria Physical Exam Constitutional: not in distress Eyes: PERRL, conjunctivae normal, anicteric sclerae ENMT: external ear and nose normal, oropharynx normal Neck: trachea midline, no thyromegaly Respiratory: normal respiratory effort, lungs clear to auscultation Cardiovascular: Rate/Rhythm: regular rate and regular rhythm Extremities: + edema Gastrointestinal (Abdomen): normal bowel sounds, soft, nontender, no hepatosplenomegaly Neurologic: not confused Speech / Cognition: normal cognition Results & Data ([facility]) Vital Signs (Past 12 Hours) Vital Signs Temp Pulse Resp BP Pulse Ox O2 Del Method O2 Flow Rate 03/31/22 07:44 37.2 C 85 18 151/78 H 94 Nasal Cannula 2 03/31/22 05:08 72 18 94 Nasal Cannula 2 Laboratory Results Laboratory Tests 03/31/22 03/31/22 05:38 05:38 WBC 12.43 H Hgb 7.8 L Hct 24.6 L Plt Count 281 Sodium 140 Potassium 5.3 H Chloride 110 H Carbon Dioxide 21 BUN 61 H Creatinine 2.35 H Glucose 147 H Transferrin % Sat 7 L Ferritin 82.7 PG Care Time/CCT Total # of Minutes Spent Total Time Spent with Patient: Total time spent is greater than 50% in coordination of care (as documented) at patient's floor/unit and/or counseling patient: Coding Level of Care Code 96747 Subseq Hosp Care Lvl 3 Diagnoses Acute kidney injury superimposed on CKD N17.9; N18.9 Hyperkalemia E87.5 CKD (chronic kidney disease) stage 3, GFR 30-59 ml/min N18.3 Diabetic nephropathy associated with type 2 diabetes mellitus E11.21 Anemia D64.9 Secondary hyperparathyroidism N25.81
[2022-03-31] MEDS ORDERED: SODIUM BICARBONATE 650 MG TAB PO SCH (11:00)
--- NOTE | 2022-03-31 11:40 | Hospitalist Progress Note ---
Date of Service March 31, 2022 Assessment & Plan (1) Acute kidney injury superimposed on CKD: Plan: Patient has a h/o CKD stage 3b with baseline creatinine of 1.2-1.3, though recently has been in the 1.5-1.7 range. Cr on admission was 3.14 with a BUN of 72. Patient most likely has a KEEGAN on CKD due to not eating and drinking much lately and may have had a viral illness some days ago. But also has underlying nephrotic syndrome and this could be progression of chronic disease Renal US negative She was initially treated with several days of IV normal saline and developed a nonanion gap metabolic acidosis, but creatinine had improved to 2.7. With hyponatremia which is also improving She continued to have hyperkalemia She was briefly started on an isotonic's bicarbonate drip on 03/30 which was stopped when she went into respiratory failure as below Gave Lasix 40 Mg IV x1 on 03/30 Hyperkalemia treated with patiromer daily and receiving insulin UA no evidence of infection on admission Is making urine but is incontinent and I's and O's are not being recorded accurately Was started on sodium bicarbonate on 03/30 at 1300 Mg p.o. twice daily Continues with respiratory failure and evidence of volume overload on 03/31, but creatinine improving despite IV Lasix down to 2.35 Hyperkalemia improving down to 5.3, hyponatremia now resolved, none anion gap metabolic acidosis also improving -Give another Lasix 40 Mg IV x1 this morning and monitor urine output -consult Nephrology appreciated -Continue daily patiromer -Continue low K+ diet -repeat BMP at 1500 today and again in the morning -Continue sodium bicarbonate 1300 Mg p.o. twice daily -continue to hold nephrotoxic meds and hold home Farxiga, lisinopril -Will place Serraon catheter due to renal failure, significant urinary incontinence -Repeat urinalysis to check for infection given foul odor and systemic symptoms of nausea (2) Acute respiratory failure with hypoxia: Plan: Secondary to volume overload from acute kidney injury with isotonic fluids being given for several days Chest x-ray with pulmonary edema on 03/30 Giving IV Lasix as above Continue supplemental O2 to keep pulse ox greater than 90% -Albuterol as needed although has no underlying pulmonary issues-likely wheeze secondary to pulmonary edema -Will check echocardiogram (3) SOB (shortness of breath) on exertion: Plan: - Most likely 2/2 KEEGAN or due to worsening anemia Initially lungs were clear and chest x-ray negative, but then developed pulmonary edema as above and being diuresed -COVID/Flu/RSV neg on 03/28 -BioFire resp panel PCR checked on 03/30 after she developed nasal congestion, cough -remains on supplemental O2 (4) Hyperkalemia: Plan: as above, 2/2 KEEGAN Treatment as above IV Lasix will also help (5) Anemia: Plan: hgb down slightly to 7.8, normocytic Anemia of CKD B12 level low at 268-will replace with IM B12 x3 days then p.o. B12 1000 mcg daily Folate normal at 14 Transferrin saturation low quite low at 7% so also with iron deficiency-replace with IV Venofer 300 Mg daily x3 days no known blood loss follow CBC (6) Diabetes mellitus type 2, uncontrolled: Plan: - Patient's home regimen held on admission including dapagliflozin, NPH 70/30 - Continue BSG checks, sliding-scale insulin,Lantus, hypoglycemic protocol - Patient has not been checking her blood sugars at home and admits to not eating and drinking recently. - Hemoglobin A1C 7.2%-well controlled -ADA diet (7) Hypertension: Plan: -continue to hold lisinopril, home p.o. furosemide due to KEEGAN -BPs acceptable -amlodipine on hold -Will continue labetalol (8) Fatigue: Plan: - Most likely due to illness or depression. Will see how patient does once her KEEGAN improves. Checking urinalysis now as fatigue is worsening along with poor appetite (9) Nephrotic syndrome: Plan: as above, follows with Nephrology (10) Dyslipidemia: Plan: -ok to continue home statin (11) Hyperthyroidism: Plan: -Continue at home methimazole -TSH was 4.7. (12) Major depressive disorder, recurrent severe without psychotic features: Plan: -continue at home venlafaxine (13) GERD without esophagitis: Plan: Continue home PPI (14) URI (upper respiratory infection): Plan: BioFire negative as above Continue Afrin nasal spray Plan DVT proph-heparin SQ Dispo-continued stay Admission and Anticipated Discharge Date Admission Date: March 28, 2022 Subjective Yesterday afternoon, patient developed respiratory distress and volume overload with increasing peripheral edema, wheezes and crackles on examination, hypoxia requiring 2 L nasal cannula, and chest x-ray with pulmonary edema. I gave her Lasix 40 mg IV x1 at that time and she was diuresing and looking better within a few hours. Today, patient reports ongoing shortness of breath, remains on oxygen, some nausea and poor appetite. Looked at her food and could not eat it this morning. No abdominal pains. Last bowel movement 2 days ago. No chest pains. She continues to have copious incontinence and urine output has not been able to be recorded. She has extremely foul-smelling urine today. Just overall does not feel well at all. Remains on 2 L nasal cannula. Review of Systems Review of Systems: All systems reviewed & are unremarkable except as noted in HPI & below Physical Exam Constitutional: WD/WN, vitals as above Looks ill Eyes: + anicteric sclerae ENMT: Nose: no external nose abnormality Neck: trachea midline, no thyromegaly Respiratory: + cough (Occasional) and + tachypneic (With minimal exertion) Auscultation: + crackles (Bibasilar) and + wheezes (Bilateral expiratory); no rhonchi Cardiovascular: Rate/Rhythm: regular rate and regular rhythm Heart Sounds: no murmur Extremities: + edema (1+ pitting edema ankles and distal legs bilat improved from yesterday ) Chest (Breasts): Chest: normal inspection of chest Gastrointestinal (Abdomen): normal bowel sounds, soft, nontender, no hepatosplenomegaly Musculoskeletal: Extremities: extremities normal to inspection; no cyanosis and no clubbing Skin: no rashes, warm and dry Neurologic: moves all extremities and awake; no focal motor deficits Psychiatric: A+Ox3, euthymic affect Results & Data Results & Data ([facility]) Vital Signs (Past 12 Hours) Vital Signs Temp Pulse Resp BP Pulse Ox O2 Del Method O2 Flow Rate 03/31/22 08:00 Nasal Cannula 2 03/31/22 07:44 37.2 C 85 18 151/78 H 94 Nasal Cannula 2 03/31/22 05:08 72 18 94 Nasal Cannula 2 Laboratory Results Labs reviewed PG Care Time/CCT Total # of Minutes Spent Total Time Spent with Patient: Total time spent is greater than 50% in coordination of care (as documented) at patient's floor/unit and/or counseling patient: Coding Level of Care Code 17605 Subseq Hosp Care Lvl 3 Diagnoses Acute kidney injury superimposed on CKD N17.9; N18.9 Acute respiratory failure with hypoxia J96.01 SOB (shortness of breath) on exertion R06.02 Hyperkalemia E87.5 Anemia D64.9 Diabetes mellitus type 2, uncontrolled E11.65 Glycemic state: with hyperglycemia Hypertension I10 Hypertension type: unspecified Fatigue R53.83 Fatigue type: unspecified Nephrotic syndrome N04.9 Dyslipidemia E78.5 Hyperthyroidism E05.90 Major depressive disorder, recurrent severe without psychotic features F33.2 GERD without esophagitis K21.9 URI (upper respiratory infection) J06.9 (1) Fatigue Fatigue type: unspecified Qualified Code(s): R53.83 - Other fatigue (2) Diabetes mellitus type 2, uncontrolled Glycemic state: with hyperglycemia Qualified Code(s): E11.65 - Type 2 diabetes mellitus with hyperglycemia (3) Hypertension Hypertension type: unspecified Qualified Code(s): I10 - Essential (primary) hypertension
[2022-03-31] MEDS: PATIROMER CALCIUM SORBITEX 8.4 GM PACK PO SCH (13:04)
[2022-03-31 16:16] LABS: BUN Creatinine Ratio 24.5 (10-20); Creatinine Clr Calc Pharmacy 20.6 ml/min; Est GFR (African American) 25.1 ml/min; Est GFR (Non-African American) 21.7 ml/min; Potassium 4.8 mmol/L (3.5-5.1)
[2022-03-31 16:47] LABS: Appearance Urine Clear (Clear); Bacteria Urine Automated 3+ (Negative); Bilirubin Urine Negative (Negative); Blood Urine Trace (Negative); Color Urine Yellow; Glucose Urine UA 1+ (Negative); Ketones Urine Negative (Negative); Leukocyte Esterase Urine Trace (Negative); Nitrite Urine Negative (Negative); Protein Urine 1+ (Negative); RBC Urine Automated 0-4 /hpf (0-4); Urobilinogen Urine Negative (Negative)
[2022-03-31] MEDS: cefTRIAXone SODIUM 2,000 MG in DEXTROSE 5% 50 ML IV SCH (18:04)
[2022-04-01] MEDS ORDERED: ALBUT/IPRATROP 3MG/0.5MG NEB 3 ML VIAL NEB PRN (05:58)
[2022-04-01 06:12] LABS: Hematocrit (blood only) 23.7 % (34.1-44.9); Hemoglobin 7.6 g/dl (12.0-16.0); Mean Corpuscular Hemoglobin 30.9 pg (25.0-34.0); Mean Corpuscular Hgb Conc 32.1 g/dL (32.0-36.0); Mean Corpuscular Volume 96.3 fL (80.0-100.0); Mean Platelet Volume 11.8 fL (9.4-12.3); Nucleated RBC # (auto) 0.04 K/uL (0-0); Nucleated RBC % (auto) 0.3 %; Platelet Count 278 K/uL (130-400); RDW Coefficient of Variation 13.6 % (11.5-14.5); RDW Standard Deviation 47.9 fL (36.4-46.3); Red Blood Count 2.46 M/uL (3.93-5.22); White Blood Count 13.28 K/ul (4.8-10.8)
[2022-04-01 06:38] LABS: Calcium 8.3 mg/dl (8.5-10.1); Creatinine Clr Calc Pharmacy 22.2 ml/min; Est GFR (African American) 27.5 ml/min; Est GFR (Non-African American) 23.8 ml/min; Potassium 4.3 mmol/L (3.5-5.1)
[2022-04-01] MEDS: PANTOprazole 40 MG TAB PO SCH (08:25)
[2022-04-01] MEDS: methIMAzole 5 MG TABLET PO SCH (08:25)
[2022-04-01] MEDS: CYANOCOBALAMIN 1000 MCG/ML VIAL IM SCH (08:25)
[2022-04-01] MEDS: ROSUVASTATIN CALCIUM 10 MG TAB PO SCH (08:25)
[2022-04-01] MEDS: HEPARIN SOD 5,000 UNIT/0.5 ML VIAL SQ SCH ×2 (08:26→21:08)
[2022-04-01] MEDS: KETOROLAC 0.5% OP SOLN 5 ML BTL OPB SCH ×2 (08:26→21:06)
[2022-04-01] MEDS: LABETALOL HCL 200 MG TAB PO SCH ×2 (08:26→21:07)
[2022-04-01] MEDS: SODIUM BICARBONATE 650 MG TAB PO SCH ×2 (08:26→21:07)
[2022-04-01] MEDS: VENLAFAXINE HCL XR 150 MG CAPXR PO SCH (08:26)
--- NOTE | 2022-04-01 08:57 | Nephrology Progress Note ---
Date of Service April 01, 2022 Assessment & Plan (1) Acute kidney injury superimposed on CKD: Plan: * Non-oliguric KEEGAN. Likely ATN due to dehydration in the setting of ACEi therapy * Cr improved to 2.0 this am * Continue to hold dapagliflozin, lisinopril * Will resume home dose of furosemide 20 mg po BID (2) Hyperkalemia: Plan: * Low potassium diet * Continue Patiromer 8.4 grams daily * Recommend reducing NaHCO3 to 650 mg daily since serum bicarbonate and potassium have normalized and patient has HTN w/ mild volume overload (3) CKD (chronic kidney disease) stage 3, GFR 30-59 ml/min: Plan: * Biopsy proven advanced DKD. Baseline creatinine 1.6-1.9 mg/dL w/ UPCR > 8.0 * Will require follow up w/ Dr. Paige following discharge from hospital (4) Diabetic nephropathy associated with type 2 diabetes mellitus: Plan: * Hold IVORY and SGLT2i in setting of KEEGAN (5) Anemia: Plan: * Iron saturation 7% w/ ferritin 83. 1g IV Venofer has been ordered by hospital ist service (6) Secondary hyperparathyroidism: Plan: * Continue calcitriol 0.25 mcg MWF as Rx. Calcium remains normal. Admission and Anticipated Discharge Date Admission Date: March 28, 2022 Subjective Ms. Mei was evaluated in her hospital room this morning. She was breathing comfortably on O2 NC but does not persistent LE swelling Review of Systems Constitutional: no fever Eyes: no problem reported Ear, Nose, Mouth, Throat: no problem reported Respiratory: no dyspnea Cardiovascular: no chest pain Gastrointestinal: no abdominal pain Genitourinary: no dysuria Physical Exam Constitutional: not in distress Eyes: PERRL, conjunctivae normal, anicteric sclerae ENMT: external ear and nose normal, oropharynx normal Neck: trachea midline, no thyromegaly Respiratory: normal respiratory effort, lungs clear to auscultation Cardiovascular: Rate/Rhythm: regular rate and regular rhythm Extremities: + edema Gastrointestinal (Abdomen): normal bowel sounds, soft, nontender, no hepatosplenomegaly Neurologic: not confused Speech / Cognition: normal cognition Results & Data ([facility]) Vital Signs (Past 12 Hours) Vital Signs Temp Pulse Pulse Resp BP Pulse Ox O2 Del Method 04/01/22 08:25 83 167/86 H 04/01/22 08:14 86 26 H 95 Nasal Cannula 04/01/22 06:09 92 Nasal Cannula 04/01/22 05:50 90 Nasal Cannula 04/01/22 05:45 37.5 C 84 20 144/65 H 75 L Room Air O2 Flow Rate 04/01/22 08:25 04/01/22 08:14 3 04/01/22 06:09 2 04/01/22 05:50 2 04/01/22 05:45 Laboratory Results Laboratory Tests 04/01/22 04/01/22 05:20 05:20 WBC 13.28 H Hgb 7.6 L Hct 23.7 L Plt Count 278 Sodium 140 Potassium 4.3 Chloride 108 H Carbon Dioxide 23 BUN 51 H Creatinine 2.04 H Glucose 111 H Calcium 8.3 L PG Care Time/CCT Total # of Minutes Spent Total Time Spent with Patient: Total time spent is greater than 50% in coordination of care (as documented) at patient's floor/unit and/or counseling patient: Coding Level of Care Code 34787 Subseq Hosp Care Lvl 3 Diagnoses Acute kidney injury superimposed on CKD N17.9; N18.9 Hyperkalemia E87.5 CKD (chronic kidney disease) stage 3, GFR 30-59 ml/min N18.3 Diabetic nephropathy associated with type 2 diabetes mellitus E11.21 Anemia D64.9 Secondary hyperparathyroidism N25.81
[2022-04-01] MEDS: IRON SUCROSE 300 MG in SODIUM CHLORIDE 0.9% 250 ML IV SCH (09:13)
[2022-04-01] MEDS: INSULIN ASPART PER UNIT SC SCH ×4 (09:55→21:55)
[2022-04-01] MEDS: LANTUS PER UNIT CHARGE SQ SCH ×2 (09:55→21:55)
[2022-04-01] MEDS: FUROSEMIDE 40 MG/4 ML VIAL IV SCH ×2 (11:00→21:08)
[2022-04-01] MEDS: ACETAMINOPHEN 325 MG TAB PO PRN (11:05)
[2022-04-01] MEDS: PATIROMER CALCIUM SORBITEX 8.4 GM PACK PO SCH (15:39)
[2022-04-01] MEDS ORDERED: FUROSEMIDE 20 MG TAB PO SCH (17:00)
[2022-04-01] MEDS: cefTRIAXone SODIUM 2,000 MG in DEXTROSE 5% 50 ML IV SCH (17:17)
--- NOTE | 2022-04-01 18:08 | Hospitalist Progress Note ---
Date of Service April 01, 2022 Assessment & Plan (1) Acute kidney injury superimposed on CKD: Plan: Patient has a h/o CKD stage 3b with baseline creatinine of 1.2-1.3, though recently has been in the 1.5-1.7 range. Cr on admission was 3.14 with a BUN of 72. Patient most likely has a KEEGAN on CKD most likely secondary to poor appetite, nonketotic hyperglycemia hospital diuresis, diuretics (furosemide,), lisinopril Renal US negative Patient started the patient on IV fluid, creatinine improved to 2.7, patient had non-anion gap metabolic acidosis, more awake she had hyponatremia and hyperkalemia and received bicarb drip and reports has been resolved Creatinine continues to drop today creatinine 2.04 Evidence of volume overload, tachypnea orthopnea and acute hypoxia developed today, initiated on Lasix 40 mg IV twice daily -Continue sodium bicarbonate 1300 Mg p.o. twice daily -continue to hold nephrotoxic meds and hold home Farxiga, lisinopril Continue Serrano catheter due to renal failure, significant urinary incontinence -Evidence of UTI on lab work-up done on 03/30 gram-negative bacillary growing, currently on Rocephin (2) Acute respiratory failure with hypoxia: Plan: Secondary to volume overload from acute kidney injury with isotonic fluids being given for several days Chest x-ray with pulmonary edema on 03/30 -Started on Lasix 40 mg twice daily (3) Anemia: Plan: hgb down slightly to 7.8, normocytic Anemia of CKD B12 level low at 268-will replace with IM B12 x3 days then p.o. B12 1000 mcg daily Folate normal at 14 Transferrin saturation low quite low at 7% so also with iron deficiency-replace with IV Venofer 300 Mg daily x3 days no known blood loss follow CBC (4) Diabetes mellitus type 2, uncontrolled: Plan: - Patient's home regimen held on admission including dapagliflozin, NPH 70/30 - Continue BSG checks, sliding-scale insulin,Lantus, hypoglycemic protocol - Patient has not been checking her blood sugars at home and admits to not eating and drinking recently. - Hemoglobin A1C 7.2%-well controlled -ADA diet (5) Hypertension: Plan: -continue to hold lisinopril, home p.o. furosemide due to KEEGAN -BPs acceptable -amlodipine on hold -Will continue labetalol (6) Fatigue: Plan: - Most likely due to illness or depression. Will see how patient does once her KEEGAN improves. Checking urinalysis now as fatigue is worsening along with poor appetite (7) Dyslipidemia: Plan: -ok to continue home statin (8) Hyperthyroidism: Plan: -Continue at home methimazole -TSH was 4.7. (9) Major depressive disorder, recurrent severe without psychotic features: Plan: -continue at home venlafaxine (10) GERD without esophagitis: Plan: Continue home PPI (11) URI (upper respiratory infection): Plan: BioFire negative as above Continue Afrin nasal spray Plan DVT proph-heparin SQ Dispo-continued stay Admission and Anticipated Discharge Date Admission Date: March 28, 2022 Subjective The patient is a 69-year-old female with a past medical history significant for chronic kidney disease, GERD hypertension diabetic nephropathy, diabetes, hypothyroidism presented to hospital because of exertional dyspnea poor appetite. She was found to have acute kidney injury on chronic kidney disease with creatinine of 3.14 BUN of 72 and potassium of 5.7 irish impression but this is most likely because of poor appetite and dehydration, poorly controlled diabetes as well as medication (lisinopril furosemide) She was also diagnosed with iron deficiency anemia Physical Exam Physical Exam: GENERAL : No acute distress EYES: No icterus, gaze conjugate NOSE: No evidence of epistaxis MOUTH: No lesions or candidiasis NECK: Supple LUNGS: CTA B/L, no wheezes, rales or rhonchi HEART: Regular, rate controlled ABDOMEN: Soft, NT, ND, BS Present EXTREMITIES: No LE edema, pedal pulses intact NEURO: A&OX3 Constitutional: WD/WN, vitals as above well developed and + morbidly obese; no acute distress and not in distress Eyes: PERRL, conjunctivae normal, anicteric sclerae + anicteric sclerae; no conjunctival abnormality (with watery discharge bilat) and no corneal abnormality ENMT: external ear and nose normal, oropharynx normal Nose: no external nose abnormality Mouth: no oral mucosal abnormality and oral mucous membranes not dry Neck: trachea midline, no thyromegaly normal visual inspection and trachea midline Respiratory: normal respiratory effort, lungs clear to auscultation normal respiratory effort, + cough (Occasional) and + tachypneic (With minimal exertion) Auscultation: lungs clear to auscultation bilaterally, + crackles (Bibasilar) and + wheezes (Bilateral expiratory); no rhonchi Cardiovascular: RRR, no murmur, no edema Rate/Rhythm: regular rate and regular rhythm Heart Sounds: normal S1 and normal S2; no murmur Extremities: + edema Chest (Breasts): Chest: normal inspection of chest Gastrointestinal (Abdomen): normal bowel sounds, soft, nontender, no hepatosplenomegaly Musculoskeletal: no cyanosis or clubbing, extremities motor strength 5/5 Extremities: extremities normal to inspection; no cyanosis and no clubbing Skin: no rashes, warm and dry normal turgor; no lesions Neurologic: patellar DTR's 2+ bilat, sensation intact moves all extremities and awake; no focal motor deficits and not confused Speech / Cognition: normal cognition Motor/Sensory: no tremor and no asterixis Psychiatric: A+Ox3, euthymic affect Orientation: alert and oriented x 3 Lymphatic: no lymphedema Results & Data Results & Data ([facility]) Vital Signs (Past 12 Hours) Vital Signs Temp Pulse Pulse Resp BP BP Pulse Ox 04/01/22 14:24 37.1 C 79 20 136/71 94 04/01/22 10:59 37.4 C 78 20 163/84 H 95 04/01/22 10:16 37.2 C 78 20 164/79 H 95 04/01/22 09:57 96 04/01/22 08:25 83 167/86 H 04/01/22 08:14 86 26 H 95 04/01/22 06:09 92 O2 Del Method O2 Flow Rate 04/01/22 14:24 Nasal Cannula 3 04/01/22 10:59 Nasal Cannula 4.5 04/01/22 10:16 Nasal Cannula 4.5 04/01/22 09:57 Nasal Cannula 4.5 04/01/22 08:25 04/01/22 08:14 Nasal Cannula 3 04/01/22 06:09 Nasal Cannula 2 PG Care Time/CCT Total # of Minutes Spent Total Time Spent with Patient: Total time spent is greater than 50% in coordination of care (as documented) at patient's floor/unit and/or counseling patient: Coding Level of Care Code 34726 Subseq Hosp Care Lvl 3 Diagnoses Acute kidney injury superimposed on CKD N17.9; N18.9 Acute respiratory failure with hypoxia J96.01 Anemia D64.9 Diabetes mellitus type 2, uncontrolled E11.65 Glycemic state: with hyperglycemia Hypertension I10 Hypertension type: unspecified Fatigue R53.83 Fatigue type: unspecified Dyslipidemia E78.5 Hyperthyroidism E05.90 Major depressive disorder, recurrent severe without psychotic features F33.2 GERD without esophagitis K21.9 URI (upper respiratory infection) J06.9 (1) Diabetes mellitus type 2, uncontrolled Glycemic state: with hyperglycemia Qualified Code(s): E11.65 - Type 2 diabetes mellitus with hyperglycemia (2) Hypertension Hypertension type: unspecified Qualified Code(s): I10 - Essential (primary) hypertension (3) Fatigue Fatigue type: unspecified Qualified Code(s): R53.83 - Other fatigue
[2022-04-01] MEDS ORDERED: PROCHLORPERAZINE 5 MG in SYRINGE 4 ML IV ONE (19:26)
[2022-04-02 07:28] LABS: BUN Creatinine Ratio 24.3 (10-20); Calcium 8.1 mg/dl (8.5-10.1); Creatinine Clr Calc Pharmacy 20.4 ml/min; Est GFR (African American) 24.9 ml/min; Est GFR (Non-African American) 21.4 ml/min; Potassium 4.1 mmol/L (3.5-5.1)
[2022-04-02] MEDS: IRON SUCROSE 300 MG in SODIUM CHLORIDE 0.9% 250 ML IV SCH (08:32)
[2022-04-02] MEDS: VENLAFAXINE HCL XR 150 MG CAPXR PO SCH (08:32)
[2022-04-02] MEDS: SODIUM BICARBONATE 650 MG TAB PO SCH (08:32)
[2022-04-02] MEDS: HEPARIN SOD 5,000 UNIT/0.5 ML VIAL SQ SCH ×2 (08:32→21:01)
[2022-04-02] MEDS: CALCITRIOL 0.25 MCG CAPSULE PO SCH (08:32)
[2022-04-02] MEDS: ROSUVASTATIN CALCIUM 10 MG TAB PO SCH (08:32)
[2022-04-02] MEDS: methIMAzole 5 MG TABLET PO SCH (08:32)
[2022-04-02] MEDS: PANTOprazole 40 MG TAB PO SCH (08:32)
[2022-04-02] MEDS: CYANOCOBALAMIN 1000 MCG/ML VIAL IM SCH (08:33)
[2022-04-02] MEDS: KETOROLAC 0.5% OP SOLN 5 ML BTL OPB SCH ×2 (08:33→21:02)
[2022-04-02] MEDS: FUROSEMIDE 40 MG/4 ML VIAL IV SCH ×2 (08:33→18:23)
--- NOTE | 2022-04-02 08:53 | Nephrology Progress Note ---
Date of Service April 02, 2022 Assessment & Plan (1) Acute kidney injury superimposed on CKD: Plan: * Non-oliguric KEEGAN. Likely ATN due to dehydration in the setting of ACEi therapy * Cr stable at 2.2 this am * Continue to hold dapagliflozin, lisinopril * Net 1L volume negative overnight. Recommend changing diuretic to home dose of furosemide 20 mg po BID * Kidney function is near baseline. Will defer further management to hospitalist service. Please call if further Nephrology assistance is needed (2) Hyperkalemia: Plan: * Low potassium diet * Continue Patiromer 8.4 grams daily * Recommend reducing NaHCO3 to 650 mg daily since serum bicarbonate and potassium have normalized and patient has HTN w/ mild volume overload (3) CKD (chronic kidney disease) stage 3, GFR 30-59 ml/min: Plan: * Biopsy proven advanced DKD. Baseline creatinine 1.6-1.9 mg/dL w/ UPCR > 8.0 * Will require follow up w/ Dr. Paige following discharge from hospital (4) Diabetic nephropathy associated with type 2 diabetes mellitus: Plan: * Hold IVORY and SGLT2i in setting of KEEGAN (5) Anemia: Plan: * Iron saturation 7% w/ ferritin 83. 1g [facility] (6) Secondary hyperparathyroidism: Plan: * Continue calcitriol 0.25 mcg MWF as Rx. Calcium remains normal. Admission and Anticipated Discharge Date Admission Date: March 28, 2022 Subjective Ms. Mei was evaluated in her hospital room this morning. She was breathing comfortably on O2 NC and notes mild persistent LE swelling Review of Systems Constitutional: no fever Eyes: no problem reported Ear, Nose, Mouth, Throat: no problem reported Respiratory: no dyspnea Cardiovascular: no chest pain Gastrointestinal: no abdominal pain Genitourinary: no dysuria Physical Exam Constitutional: not in distress Eyes: PERRL, conjunctivae normal, anicteric sclerae ENMT: external ear and nose normal, oropharynx normal Neck: trachea midline, no thyromegaly Respiratory: normal respiratory effort, lungs clear to auscultation Cardiovascular: Rate/Rhythm: regular rate and regular rhythm Extremities: + edema Gastrointestinal (Abdomen): normal bowel sounds, soft, nontender, no hepatosplenomegaly Neurologic: not confused Speech / Cognition: normal cognition Results & Data ([facility]) Vital Signs (Past 12 Hours) Vital Signs Temp Pulse Pulse Resp BP Pulse Ox O2 Del Method 04/02/22 08:27 37.8 C H 82 18 148/63 H 91 Nasal Cannula 04/01/22 20:57 37.2 C 89 18 156/78 H 91 Nasal Cannula O2 Flow Rate 04/02/22 08:27 4 04/01/22 20:57 4 Laboratory Results Laboratory Tests 04/02/22 06:09 Sodium 141 Potassium 4.1 Chloride 106 Carbon Dioxide 26 BUN 54 H Creatinine 2.22 H Glucose 126 H Calcium 8.1 L PG Care Time/CCT Total # of Minutes Spent Total Time Spent with Patient: Total time spent is greater than 50% in coordination of care (as documented) at patient's floor/unit and/or counseling patient: Coding Level of Care Code 71317 Subseq Hosp Care Lvl 3 Diagnoses Acute kidney injury superimposed on CKD N17.9; N18.9 Hyperkalemia E87.5 CKD (chronic kidney disease) stage 3, GFR 30-59 ml/min N18.3 Diabetic nephropathy associated with type 2 diabetes mellitus E11.21 Anemia D64.9 Secondary hyperparathyroidism N25.81
[2022-04-02] MEDS: INSULIN ASPART PER UNIT SC SCH ×4 (09:11→21:02)
[2022-04-02] MEDS: LANTUS PER UNIT CHARGE SQ SCH ×2 (09:12→21:01)
[2022-04-02] MEDS: LABETALOL HCL 200 MG TAB PO SCH ×2 (09:12→21:02)
--- NOTE | 2022-04-02 10:45 | XCELERA ---
[id number]
[2022-04-02] MEDS: PATIROMER CALCIUM SORBITEX 8.4 GM PACK PO SCH (12:41)
--- NOTE | 2022-04-02 13:52 | CT Scan Report ---
CT OF THE CHEST WITHOUT IV CONTRAST CLINICAL HISTORY: Hypoxia. COMPARISON STUDY: Chest radiograph March 30, 2022. CT DOSE: 600.83 mGycm TECHNIQUE: Axial images of the chest were obtained without IV contrast. Images were reviewed in the axial, sagittal, and coronal planes. IV contrast was not administered for this examination. Automat ed exposure control was utilized for the study. A dose lowering technique was utilized adhering to t he principles of ALARA. FINDINGS: Multiple mildly enlarged mediastinal lymph nodes are present. These may be related to pulm onary edema. Index subcarinal lymph node on axial image 108 of 256 measures 1.4 cm in short axis diam eter. There is moderate cardiomegaly and coronary artery calcification. No pericardial effusion. Smal l bilateral pleural effusions. There is no pneumothorax. Lungs are suboptimally assessed due to respi ratory motion. Interlobular septal thickening is noted. There are superimposed moderate airspace opac ities throughout the lungs. There may be narrowing of the mainstem bronchi and the trachea. This coul d reflect tracheobronchomalacia. No central obstructing mass is identified. No fractures within the b joyce thorax are noted. A small hiatal hernia is present. The gallbladder surgically absent. IMPRESSION: 1. Interstitial pulmonary edema. Airspace opacities throughout the lungs which likely reflect alveola r pulmonary edema. A superimposed infectious process could appear similar but is considered less like ly. Small bilateral pleural effusions. 2. Moderate cardiomegaly and coronary calcification. 3. Possible tracheobronchomalacia, suboptimally assessed on this exam due to respiratory motion. 4. Mildly enlarged mediastinal lymph nodes which may be related to pulmonary edema. ACT 112: Negative or not required by law. Electronically signed by: Walt Zuniga M.D. 04/02/2022 1:50 PM
[2022-04-02] MEDS: CARBAMIDE PEROXIDE 6.5% 15 ML BTL OT SCH (16:30)
[2022-04-02] MEDS ORDERED: FUROSEMIDE 20 MG TAB PO SCH (17:00)
[2022-04-02] MEDS: cefTRIAXone SODIUM 2,000 MG in DEXTROSE 5% 50 ML IV SCH (19:10)
--- NOTE | 2022-04-02 20:04 | Hospitalist Progress Note ---
Date of Service April 02, 2022 Assessment & Plan (1) Acute kidney injury superimposed on CKD: Plan: Patient has a h/o CKD stage 3b with baseline creatinine of 1.2-1.3, though recently has been in the 1.5-1.7 range. Cr on admission was 3.14 with a BUN of 72. Patient most likely has a KEEGAN on CKD most likely secondary to poor appetite, nonketotic hyperglycemia hospital diuresis, diuretics (furosemide,), lisinopril Renal US negative Patient started the patient on IV fluid, creatinine improved to 2.7, patient had non-anion gap metabolic acidosis, more awake she had hyponatremia and hyperkalemia and received bicarb drip and reports has been resolved Creatinine continues to drop today creatinine 2.04 Evidence of volume overload, tachypnea orthopnea and acute hypoxia developed today, initiated on Lasix 40 mg IV twice daily -Continue sodium bicarbonate 1300 Mg p.o. twice daily -continue to hold nephrotoxic meds and hold home Farxiga, lisinopril Continue Serrano catheter due to renal failure, significant urinary incontinence -Evidence of UTI on lab work-up done on 03/30 gram-negative bacillary growing, currently on Rocephin (2) Acute respiratory failure with hypoxia: Plan: Secondary to volume overload from acute kidney injury with isotonic fluids being given for several days Chest x-ray with pulmonary edema on 03/30 -Started on Lasix 40 mg twice daily (3) Anemia: Plan: hgb down slightly to 7.8, normocytic Anemia of CKD B12 level low at 268-will replace with IM B12 x3 days then p.o. B12 1000 mcg daily Folate normal at 14 Transferrin saturation low quite low at 7% so also with iron deficiency-replace with IV Venofer 300 Mg daily x3 days no known blood loss follow CBC (4) Diabetes mellitus type 2, uncontrolled: Plan: - Patient's home regimen held on admission including dapagliflozin, NPH 70/30 - Continue BSG checks, sliding-scale insulin,Lantus, hypoglycemic protocol - Patient has not been checking her blood sugars at home and admits to not eating and drinking recently. - Hemoglobin A1C 7.2%-well controlled -ADA diet (5) Hypertension: Plan: -continue to hold lisinopril, home p.o. furosemide due to KEEGAN -BPs acceptable -amlodipine on hold -Will continue labetalol (6) Fatigue: Plan: - Most likely due to illness or depression. Will see how patient does once her KEEAGN improves. Checking urinalysis now as fatigue is worsening along with poor appetite (7) Dyslipidemia: Plan: -ok to continue home statin (8) Hyperthyroidism: Plan: -Continue at home methimazole -TSH was 4.7. (9) Major depressive disorder, recurrent severe without psychotic features: Plan: -continue at home venlafaxine (10) GERD without esophagitis: Plan: Continue home PPI (11) URI (upper respiratory infection): Plan: BioFire negative as above Continue Afrin nasal spray Plan DVT proph-heparin SQ Dispo-continued stay Admission and Anticipated Discharge Date Admission Date: March 28, 2022 Subjective Ms. Mei was evaluated in her hospital room this morning. She was breathing comfortably on O2 NC and notes mild persistent LE swelling Physical Exam Physical Exam: GENERAL : No acute distress EYES: No icterus, gaze conjugate NOSE: No evidence of epistaxis MOUTH: No lesions or candidiasis NECK: Supple LUNGS: CTA B/L, no wheezes, rales or rhonchi HEART: Regular, rate controlled ABDOMEN: Soft, NT, ND, BS Present EXTREMITIES: No LE edema, pedal pulses intact NEURO: A&OX3 Constitutional: WD/WN, vitals as above well developed and + morbidly obese; no acute distress and not in distress Eyes: PERRL, conjunctivae normal, anicteric sclerae + anicteric sclerae; no conjunctival abnormality (with watery discharge bilat) and no corneal abnormality ENMT: external ear and nose normal, oropharynx normal Nose: no external nose abnormality Mouth: no oral mucosal abnormality and oral mucous membranes not dry Neck: trachea midline, no thyromegaly normal visual inspection and trachea midline Respiratory: normal respiratory effort, lungs clear to auscultation normal respiratory effort, + cough (Occasional) and + tachypneic (With minimal exertion) Auscultation: lungs clear to auscultation bilaterally, + crackles (Bibasilar) and + wheezes (Bilateral expiratory); no rhonchi Cardiovascular: RRR, no murmur, no edema Rate/Rhythm: regular rate and regular rhythm Heart Sounds: normal S1 and normal S2; no murmur Extremities: + edema Chest (Breasts): Chest: normal inspection of chest Gastrointestinal (Abdomen): normal bowel sounds, soft, nontender, no hepatosplenomegaly Musculoskeletal: no cyanosis or clubbing, extremities motor strength 5/5 Extremities: extremities normal to inspection; no cyanosis and no clubbing Skin: no rashes, warm and dry normal turgor; no lesions Neurologic: patellar DTR's 2+ bilat, sensation intact moves all extremities and awake; no focal motor deficits and not confused Speech / Cognition: normal cognition Motor/Sensory: no tremor and no asterixis Psychiatric: A+Ox3, euthymic affect Orientation: alert and oriented x 3 Lymphatic: no lymphedema Results & Data Results & Data ([facility]) Vital Signs (Past 12 Hours) Vital Signs Temp Pulse Resp BP Pulse Ox O2 Del Method O2 Flow Rate 04/02/22 16:00 36.9 C 82 18 130/71 90 Nasal Cannula 4.5 04/02/22 11:36 Nasal Cannula 4 04/02/22 08:27 37.8 C H 82 18 148/63 H 91 Nasal Cannula 4 PG Care Time/CCT Total # of Minutes Spent Total Time Spent with Patient: Total time spent is greater than 50% in coordination of care (as documented) at patient's floor/unit and/or counseling patient: Coding Level of Care Code 27840 Subseq Hosp Care Lvl 2 Diagnoses Acute kidney injury superimposed on CKD N17.9; N18.9 Acute respiratory failure with hypoxia J96.01 Anemia D64.9 Diabetes mellitus type 2, uncontrolled E11.65 Glycemic state: with hyperglycemia Hypertension I10 Hypertension type: unspecified Fatigue R53.83 Fatigue type: unspecified Dyslipidemia E78.5 Hyperthyroidism E05.90 Major depressive disorder, recurrent severe without psychotic features F33.2 GERD without esophagitis K21.9 URI (upper respiratory infection) J06.9 (1) Diabetes mellitus type 2, uncontrolled Glycemic state: with hyperglycemia Qualified Code(s): E11.65 - Type 2 diabetes mellitus with hyperglycemia (2) Hypertension Hypertension type: unspecified Qualified Code(s): I10 - Essential (primary) hypertension (3) Fatigue Fatigue type: unspecified Qualified Code(s): R53.83 - Other fatigue
[2022-04-02] MEDS: diphenhydrAMINE Capsule 25 MG CAP PO SCH (21:01)
[2022-04-03] MEDS ORDERED: SODIUM BICARBONATE 650 MG TAB PO SCH (08:00)
[2022-04-03 08:12] LABS: Hematocrit (blood only) 21.7 % (34.1-44.9); Hemoglobin 6.9 g/dl (12.0-16.0); Mean Corpuscular Hemoglobin 30.9 pg (25.0-34.0); Mean Corpuscular Hgb Conc 31.8 g/dL (32.0-36.0); Mean Corpuscular Volume 97.3 fL (80.0-100.0); Mean Platelet Volume 11.5 fL (9.4-12.3); Nucleated RBC # (auto) 0.12 K/uL (0-0); Nucleated RBC % (auto) 0.8 %; Platelet Count 293 K/uL (130-400); RDW Coefficient of Variation 14.1 % (11.5-14.5); RDW Standard Deviation 49.3 fL (36.4-46.3); Red Blood Count 2.23 M/uL (3.93-5.22); White Blood Count 15.69 K/ul (4.8-10.8)
[2022-04-03 08:32] LABS: BUN Creatinine Ratio 22.3 (10-20); Calcium 8.3 mg/dl (8.5-10.1); Creatinine Clr Calc Pharmacy 20.6 ml/min; Est GFR (African American) 19.3 ml/min; Est GFR (Non-African American) 16.6 ml/min; Potassium 3.9 mmol/L (3.5-5.1)
[2022-04-03] MEDS: CARBAMIDE PEROXIDE 6.5% 15 ML BTL OT SCH (08:49)
[2022-04-03] MEDS: KETOROLAC 0.5% OP SOLN 5 ML BTL OPB SCH ×2 (08:49→20:51)
[2022-04-03] MEDS: PANTOprazole 40 MG TAB PO SCH (08:50)
[2022-04-03] MEDS: diphenhydrAMINE Capsule 25 MG CAP PO SCH ×3 (08:50→20:52)
[2022-04-03] MEDS: LABETALOL HCL 200 MG TAB PO SCH ×2 (08:50→20:51)
[2022-04-03] MEDS: HEPARIN SOD 5,000 UNIT/0.5 ML VIAL SQ SCH ×2 (08:50→20:53)
[2022-04-03] MEDS: CYANOCOBALAMIN (B-12) 500 MCG TABLET PO SCH (08:50)
[2022-04-03] MEDS: VENLAFAXINE HCL XR 150 MG CAPXR PO SCH (08:50)
[2022-04-03] MEDS: FUROSEMIDE 40 MG/4 ML VIAL IV SCH ×2 (08:50→18:30)
[2022-04-03] MEDS: ROSUVASTATIN CALCIUM 10 MG TAB PO SCH (08:50)
[2022-04-03] MEDS: methIMAzole 5 MG TABLET PO SCH (08:50)
[2022-04-03] MEDS: ACETAMINOPHEN 325 MG TAB PO PRN (08:57)
--- NOTE | 2022-04-03 09:17 | Nephrology Progress Note ---
Date of Service April 03, 2022 Assessment & Plan (1) Acute kidney injury superimposed on CKD: Plan: * Non-oliguric KEEGAN. Likely ATN due to dehydration in the setting of ACEi therapy * Cr trending up in response to diuretic therapy. Cr 2.7 this am * Although CXR and chest CT show mild pulmonary edema, suspect patient has intravascular volume contraction. Hgb has dropped to 6.9 this am * Continue to hold dapagliflozin, lisinopril * Consider transfusing 1 u PRBC and continue gentle diuresis * Monitor UO, PRP (2) Hyperkalemia: Plan: * Low potassium diet * Serum potassium has corrected. Will stop Patiromer * Serum bicarbonate has corrected. Will stop NaHCO3 supplement (3) CKD (chronic kidney disease) stage 3, GFR 30-59 ml/min: Plan: * Biopsy proven advanced DKD. Baseline creatinine 1.6-1.9 mg/dL w/ UPCR > 8.0 * Will require follow up w/ Dr. Paige following discharge from hospital (4) Diabetic nephropathy associated with type 2 diabetes mellitus: Plan: * Hold IVORY and SGLT2i in setting of KEEGAN (5) Anemia: Plan: * Iron saturation 7% w/ ferritin 83. 1g IV Venofer has been ordered by hospitalist service * Will order FOBT * Consider transfusion to maintain Hgb > 8.0 (6) Secondary hyperparathyroidism: Plan: * Continue calcitriol 0.25 mcg MWF as Rx. Calcium remains normal. Admission and Anticipated Discharge Date Admission Date: March 28, 2022 Subjective Ms. Mei was reassessed at the request of the hospitalist service. She was evaluated in her hospital room this morning. Ms. Mei was breathing comfortably on O2 at 4L/min NC. She denied fever, productive cough or angina. Ms. Mei noted that her LE swelling has improved. She denied overt blood loss. Review of Systems Constitutional: no fever Eyes: no problem reported Ear, Nose, Mouth, Throat: no problem reported Respiratory: no dyspnea Cardiovascular: no chest pain Gastrointestinal: no abdominal pain Genitourinary: no dysuria Physical Exam Constitutional: not in distress Eyes: PERRL, conjunctivae normal, anicteric sclerae ENMT: external ear and nose normal, oropharynx normal Neck: trachea midline, no thyromegaly Respiratory: normal respiratory effort, lungs clear to auscultation Cardiovascular: Rate/Rhythm: regular rate and regular rhythm Extremities: + edema Gastrointestinal (Abdomen): normal bowel sounds, soft, nontender, no hepatosplenomegaly Neurologic: not confused Speech / Cognition: normal cognition Results & Data ([facility]) Vital Signs (Past 12 Hours) Vital Signs Temp Pulse Resp BP Pulse Ox O2 Del Method 04/03/22 08:26 37.7 C H 79 16 143/73 H 93 Nasal Cannula Laboratory Results Laboratory Tests 04/03/22 04/03/22 07:32 07:32 WBC 15.69 H Hgb 6.9 L* Hct 21.7 L Plt Count 293 Sodium 140 Potassium 3.9 Chloride 105 Carbon Dioxide 25 BUN 61 H Creatinine 2.74 H D Glucose 92 Diagnostic Findings 03/28/22 Echocardiogram: LVEF 60 - 65%, no RWMA, RV and TV not well visualized due to body habitus 03/30/22 CXR: Interval progression of the mild interstitial pulmonary edema and trace bilateral pleural effusions. 04/02/[address]: 1. Interstitial pulmonary edema. Airspace opacities throughout the lungs which likely reflect alveolar pulmonary edema. A superimposed infectious process could appear similar but is considered less likely. Small bilateral pleural effusions. 2. Moderate cardiomegaly and coronary calcification. 3. Possible tracheobronchomalacia, suboptimally assessed on this exam due to r espiratory motion. 4. Mildly enlarged mediastinal lymph nodes which may be related to pulmonary edema PG Care Time/CCT Total # of Minutes Spent Total Time Spent with Patient: Total time spent is greater than 50% in coordination of care (as documented) at patient's floor/unit and/or counseling patient: Coding Level of Care Code 91762 Subseq Hosp Care Lvl 3 Diagnoses Acute kidney injury superimposed on CKD N17.9; N18.9 Hyperkalemia E87.5 CKD (chronic kidney disease) stage 3, GFR 30-59 ml/min N18.3 Diabetic nephropathy associated with type 2 diabetes mellitus E11.21 Anemia D64.9 Secondary hyperparathyroidism N25.81
[2022-04-03] MEDS: INSULIN ASPART PER UNIT SC SCH ×4 (09:28→20:55)
[2022-04-03] MEDS: LANTUS PER UNIT CHARGE SQ SCH ×2 (09:31→20:55)
[2022-04-03] MEDS ORDERED: SODIUM CHLORIDE 0.9% 250 ML IV PRN (10:34)
[2022-04-03] MEDS ORDERED: [UNRECOGNIZED DRUG - OTHER] IV ONE (10:36)
[2022-04-03 11:04] LABS: Iron 50 mcg/dl (35-150); Transferrin 170 mg/dl (200-360); Unsaturated Iron Binding Cap 182 mcg/dl (155-355)
[2022-04-03 11:20] LABS: Appearance Urine Cloudy (Clear); Bilirubin Urine Negative (Negative); Blood Urine Trace (Negative); Color Urine Yellow; Epithelial Cell Urine Auto >30 /lpf (0-5); Glucose Urine UA Negative (Negative); Ketones Urine Negative (Negative); Leukocyte Esterase Urine Trace (Negative); Nitrite Urine Negative (Negative); Protein Urine 2+ (Negative); RBC Urine Automated 0-4 /hpf (0-4); Specific Gravity Urine 1.011 (1.000-1.030); Urobilinogen Urine Negative (Negative)
[2022-04-03 11:33] LABS: Mucus Urine Present (None Prsent)
[2022-04-03 11:34] LABS: Bacteria Urine Automated 1+ (Negative)
[2022-04-03] MEDS: POLYETHYLENE (MIRALAX) 17 GM PACK PO SCH (13:57)
[2022-04-03] MEDS: cefTRIAXone SODIUM 2,000 MG in DEXTROSE 5% 50 ML IV SCH (18:30)
--- NOTE | 2022-04-03 20:35 | Hospitalist Progress Note ---
Date of Service April 03, 2022 Assessment & Plan (1) Acute kidney injury superimposed on CKD: Plan: Patient has a h/o CKD stage 3b with baseline creatinine of 1.2-1.3, though recently has been in the 1.5-1.7 range. Cr on admission was 3.14 with a BUN of 72. Patient most likely has a KEEGAN on CKD most likely secondary to poor appetite, nonketotic hyperglycemia hospital diuresis, diuretics (furosemide,), lisinopril Renal US negative Patient started the patient on IV fluid, creatinine improved to 2.7, patient had non-anion gap metabolic acidosis, more awake she had hyponatremia and hyperkalemia and received bicarb drip and reports has been resolved Creatinine continues to drop today creatinine 2.04 Evidence of volume overload, tachypnea orthopnea and acute hypoxia developed today, initiated on Lasix 40 mg IV twice daily -Continue sodium bicarbonate 1300 Mg p.o. twice daily -continue to hold nephrotoxic meds and hold home Farxiga, lisinopril Continue Serarno catheter due to renal failure, significant urinary incontinence 04/03 Discontinue Serrano catheter Urine culture positive for E. coli pansensitive, patient completed course of treatment with Rocephin Discontinue Rocephin Creatinine is trending up Monitor blood nephrology -KEEGAN most likely secondary to ATN due to UTI and dehydration Chronic kidney disease Baseline creatinine is 1.6-1.9 Hold IVORY and SGLT2 inhibitors in the setting of KEEGAN (2) Acute respiratory failure with hypoxia: Plan: Secondary to volume overload from acute kidney injury with isotonic fluids being given for several days Chest x-ray with pulmonary edema on 03/30 -Started on Lasix 40 mg twice daily -ANDERSON's not accurately documented -Echocardiogram revealed preserved ejection fraction no significant valvular disease , concentric left mild concentric left ventricular hypertrophy, no comment right ventricular, no comment on diastolic dysfunction, no significant valvular disease -We will ask for pulmonary consult (3) Anemia: Plan: Severe iron deficiency anemia, hemoglobin dropped to 5.9, occult blood test is pending, status post transfusion of 1 unit of packed RBC, GI consult Transferrin saturation low quite low at 7% so also with iron deficiency-replace with IV Venofer 300 Mg daily x3 days no known blood loss follow CBC (4) Diabetes mellitus type 2, uncontrolled: Plan: - Patient's home regimen held on admission including dapagliflozin, NPH 70/30 - Continue BSG checks, sliding-scale insulin,Lantus, hypoglycemic protocol - Patient has not been checking her blood sugars at home and admits to not eating and drinking recently. - Hemoglobin A1C 7.2%-well controlled -ADA diet (5) Hypertension: Plan: -continue to hold lisinopril, home p.o. furosemide due to KEEGAN -BPs acceptable -amlodipine on hold -Will continue labetalol (6) Fatigue: Plan: - Most likely due to illness or depression. Will see how patient does once her KEEGAN improves. Checking urinalysis now as fatigue is worsening along with poor appetite (7) Dyslipidemia: Plan: -ok to continue home statin (8) Hyperthyroidism: Plan: -Continue at home methimazole -TSH was 4.7. (9) Major depressive disorder, recurrent severe without psychotic features: Plan: -continue at home venlafaxine (10) GERD without esophagitis: Plan: Continue home PPI (11) URI (upper respiratory infection): Plan: BioFire negative as above Continue Afrin nasal spray Plan DVT proph-heparin SQ Dispo-continued stay Admission and Anticipated Discharge Date Admission Date: March 28, 2022 Subjective Still remains hypoxic Results & Data Results & Data ([facility]) Vital Signs (Past 12 Hours) Vital Signs Temp Pulse Pulse Resp BP BP Pulse Ox 04/03/22 16:15 36.6 C 69 16 144/77 H 95 04/03/22 15:30 37.1 C 69 16 131/71 94 04/03/22 15:36 37.1 C 69 16 131/71 94 04/03/22 14:30 37.2 C 70 18 144/69 H 96 04/03/22 13:45 37.4 C 74 18 129/75 95 04/03/22 13:30 37.3 C 74 18 118/62 90 04/03/22 13:11 36.9 C 72 20 154/86 H 93 04/03/22 11:45 O2 Del Method O2 Flow Rate 04/03/22 16:15 04/03/22 15:30 4 04/03/22 15:36 Nasal Cannula 4 04/03/22 14:30 4 04/03/22 13:45 4 04/03/22 13:30 4 04/03/22 13:11 4 04/03/22 11:45 Nasal Cannula 4 PG Care Time/CCT Total # of Minutes Spent Total Time Spent with Patient: Total time spent is greater than 50% in coordination of care (as documented) at patient's floor/unit and/or counseling patient: Coding Level of Care Code 91205 Subseq Hosp Care Lvl 3 Diagnoses Acute kidney injury superimposed on CKD N17.9; N18.9 Acute respiratory failure with hypoxia J96.01 Anemia D64.9 Diabetes mellitus type 2, uncontrolled E11.65 Glycemic state: with hyperglycemia Hypertension I10 Hypertension type: unspecified Fatigue R53.83 Fatigue type: unspecified Dyslipidemia E78.5 Hyperthyroidism E05.90 Major depressive disorder, recurrent severe without psychotic features F33.2 GERD without esophagitis K21.9 URI (upper respiratory infection) J06.9 (1) Diabetes mellitus type 2, uncontrolled Glycemic state: with hyperglycemia Qualified Code(s): E11.65 - Type 2 diabetes mellitus with hyperglycemia (2) Hypertension Hypertension type: unspecified Qualified Code(s): I10 - Essential (primary) hypertension (3) Fatigue Fatigue type: unspecified Qualified Code(s): R53.83 - Other fatigue
[2022-04-03] MEDS ORDERED: POTASSIUM CHLORIDE CRTAB 20 MEQ TABCR PO STA (22:53)
[2022-04-03] MEDS ORDERED: FUROSEMIDE 40 MG/4 ML VIAL IV ONE (22:53)
--- NOTE | 2022-04-04 07:55 | XRay Report ---
SINGLE VIEW CHEST CLINICAL HISTORY: Hypoxia FINDINGS: An AP, portable, upright chest radiograph is compared to study dated 03/30/2022 and correla nicolasa with chest CT dated 04/02/2022. The examination is degraded by portable technique and apical lord otic positioning. The heart is enlarged noting atherosclerotic calcification of the thoracic aorta. T here is pulmonary vascular congestion with interstitial edema. This has worsened as compared to previ ous. There are small pleural effusions with dependent consolidation. No pneumothorax is seen. The ske letal structures are osteopenic. The bony thorax is grossly intact. IMPRESSION: 1. Cardiomegaly with evidence of congestive failure and pulmonary edema. This has worsened as compare d to 03/30/2022. 2. Small pleural effusions with dependent consolidation. ACT 112: Negative or not required by law. Electronically signed by: Arnulfo Saravia M.D. 04/04/2022 7:54 AM
[2022-04-04 08:42] LABS: Hematocrit (blood only) 25.1 % (34.1-44.9); Mean Corpuscular Hemoglobin 31.7 pg (25.0-34.0); Mean Corpuscular Hgb Conc 31.9 g/dL (32.0-36.0); Mean Corpuscular Volume 99.6 fL (80.0-100.0); Nucleated RBC # (auto) 0.04 K/uL (0-0); Nucleated RBC % (auto) 0.3 %; Platelet Count 294 K/uL (130-400); RDW Standard Deviation 50.1 fL (36.4-46.3); Red Blood Count 2.52 M/uL (3.93-5.22); White Blood Count 13.31 K/ul (4.8-10.8)
[2022-04-04] MEDS: INSULIN ASPART PER UNIT SC SCH ×4 (09:10→20:27)
[2022-04-04] MEDS: LANTUS PER UNIT CHARGE SQ SCH ×2 (09:11→20:24)
[2022-04-04] MEDS: KETOROLAC 0.5% OP SOLN 5 ML BTL OPB SCH ×2 (09:11→20:13)
[2022-04-04] MEDS: CYANOCOBALAMIN (B-12) 500 MCG TABLET PO SCH (09:12)
[2022-04-04] MEDS: diphenhydrAMINE Capsule 25 MG CAP PO SCH ×3 (09:12→20:13)
[2022-04-04] MEDS: ROSUVASTATIN CALCIUM 10 MG TAB PO SCH (09:12)
[2022-04-04] MEDS: HEPARIN SOD 5,000 UNIT/0.5 ML VIAL SQ SCH ×2 (09:12→20:14)
[2022-04-04] MEDS: methIMAzole 5 MG TABLET PO SCH (09:13)
[2022-04-04] MEDS: VENLAFAXINE HCL XR 150 MG CAPXR PO SCH (09:13)
[2022-04-04] MEDS: PANTOprazole 40 MG TAB PO SCH (09:13)
[2022-04-04] MEDS: CALCITRIOL 0.25 MCG CAPSULE PO SCH (09:13)
[2022-04-04] MEDS: LABETALOL HCL 200 MG TAB PO SCH ×2 (09:13→20:12)
[2022-04-04] MEDS: CARBAMIDE PEROXIDE 6.5% 15 ML BTL OT SCH (09:14)
[2022-04-04] MEDS: POLYETHYLENE (MIRALAX) 17 GM PACK PO SCH (09:14)
[2022-04-04] MEDS: FUROSEMIDE 40 MG/4 ML VIAL IV SCH ×2 (09:14→18:28)
[2022-04-04 09:26] LABS: BUN Creatinine Ratio 24.2 (10-20); Calcium 8.2 mg/dl (8.5-10.1); Creatinine Clr Calc Pharmacy 18.7 ml/min; Est GFR (African American) 17.1 ml/min; Est GFR (Non-African American) 14.8 ml/min; Potassium 4.2 mmol/L (3.5-5.1)
[2022-04-04] MEDS: IRON SUCROSE 400 MG in SODIUM CHLORIDE 0.9% 250 ML IV SCH (09:32)
--- NOTE | 2022-04-04 09:35 | Pulmonary Consultation ---
Date of Consultation April 04, 2022 Assessment & Plan (1) Hypoxia: Likely secondary to volume overload and acute diastolic heart failure possibly from high-output failure due to acute anemia. Less likely, but consider pulmonary renal syndrome such as vasculitis or diffuse alveolar hemorrhage given the drop in hemoglobin, hypoxia and renal failure. Will order anti-GBM, ANCA vasculitis and RUBI screen. Consider referral to tertiary center if renal function worsens for biopsy. Will check ESR and CRP. Procal ordered, but maybe difficult to interpret in context of KEEGAN. May need bronchoscopy if respiratory status worsens. Continue to trend hemoglobin and avoid anticoagulants. Recommend out of bed to chair and frequent IS. D/W bedside RN. Repeat CXR tomorrow. (2) Diastolic CHF, acute on chronic: Continue diuresis as able. (3) Volume overload: Diuresis as above (4) Acute kidney injury: See comments above. Nephrology following. She has a history of diabetic nephropathy that is biopsy-proven per nephrology. Baseline creatinine is around 1.6-1.9. Currently her creatinine is approximately 3.0. Spoke with nephrology who feels that a repeat biopsy would likely be low yield as she just had a biopsy February. She also does not have active urinary sediment based on urinalysis. Plan Thank you for the consult. History of Present Illness Reason for Consultation: Hypoxia Attending Physician: Garland Conteh MD History of Present Illness 71-year-old female with past medical history of morbid obesity, anemia, hypertension, diabetes mellitus and CKD who presented to the hospital due to in creasing fatigue and lethargy. Creatinine was found on admission to be elevated to 3.14 and potassium was 5.7. CT chest scan 04/02 was obtained which revealed interstitial pulmonary edema and moderate cardiomegaly. Possible tracheomalacia was seen as well. Small bilateral effusions seen as well. Echo completed 03/28/2022 revealed an LVEF of 60 to 65%. Mild concentric LVH. BNP yesterday was mildly elevated to 675. Patient is currently receiving IV iron and 40 mg Lasix twice daily. Chest x-ray yesterday demonstrates continued severe pulmonary edema and cardiomegaly. Possible left pleural effusion. Patient is currently followed by nephrology due to her KEEGAN. They recommend gentle diuresis at this time. They recommend maintaining hemoglobin above 8. She received 1 unit of packed RBCs yesterday. She denies any shortness of breath at rest. She is currently on 4 L of oxygen saturating the low 90s. Patient has been very weak and unable to sit up in a chair. Denies hemoptysis. H as not been using IS. Life non-smoker. Allergies Allergy/AdvReac Type Severity Reaction Status Date / Time No Known Drug Allergies Allergy Unknown Verified 03/28/22 20:43 Home Medications Medication Instructions Recorded Confirmed Type insulin human U-100 NPH-regulr 57 unit (0.57 mL) subcut BID #10 mL 01/16/21 03/28/22 Rx 70-30 mix 100 unit/mL subcutaneous susp (Novolin 70/30 U-100 Insulin) acetaminophen 500 mg tablet 1,000 mg PO Q6H PRN Pain 06/19/21 03/28/22 History amlodipine 10 mg tablet 10 mg PO QAM #90 tabs 10/16/21 03/28/22 Rx rosuvastatin 10 mg tablet 10 mg PO QAM #90 tabs 11/23/21 03/28/22 Rx calcitriol 0.25 mcg capsule 0.25 mcg PO 3XWK #36 caps 02/21/22 03/28/22 Rx furosemide 20 mg tablet 20 mg PO BID #180 tabs 02/26/22 03/28/22 Rx dapagliflozin 10 mg tablet 10 mg PO DAILY #90 tabs 03/06/22 03/28/22 Rx (Farxiga) labetalol 200 mg tablet 200 mg PO BID #180 tabs 03/06/22 03/28/22 Rx pantoprazole 40 mg tablet,delayed 40 mg PO QAM #90 tabs 03/09/22 03/28/22 Rx release lisinopril 40 mg tablet 40 mg PO QAM #90 tabs 03/15/22 03/28/22 Rx methimazole 10 mg tablet 10 mg PO QAM #90 tabs 03/15/22 03/28/22 Rx venlafaxine 150 mg 150 mg PO QAM #90 caps 03/15/22 03/28/22 Rx capsule,extended release 24 hr (Effexor XR) ketorolac 0.5 % eye drops 1 drp OPB BID 03/28/22 03/28/22 History sodium polystyrene sulfonate 30 g PO WK 03/28/22 03/28/22 History Patient History Medical History (Updated 04/04/22 @ 15:15 by Michael Roman MD) Acute kidney injury Anemia Arthritis Diabetes mellitus type 2, uncontrolled IDDM Diastolic CHF, acute on chronic Dyslipidemia GERD without esophagitis HNP (herniated nucleus pulposus), lumbar Hyperglycemia Hyperkalemia Hypertension Hyperthyroidism Hypoxia Major depressive disorder, recurrent severe without psychotic features Melanoma of nose Morbid obesity with BMI of 40.0-44.9, adult Nephrotic syndrome Recurrent UTI Stage 3b chronic kidney disease Vitamin D deficiency Volume overload Surgical History History of bilateral cataract extraction History of colonoscopy History of melanoma excision History of repair of left rotator cuff History of repair of right rotator cuff History of tooth extraction all teeth removed S/P cholecystectomy S/P tonsillectomy S/P tubal ligation Status post trigger finger release Family History Father Prostate cancer Diabetes Myocardial infarction Lung cancer Mother Diabetes Alzheimer disease Myocardial infarction Hypertension Brother COPD (chronic obstructive pulmonary disease) Other No family history of adverse response to anesthesia Denies family history of Ovarian cancer Breast cancer Colorectal cancer Social History Smoking Status: Never smoker Second Hand Exposure: No; Hx Alcohol Use: No Hx Substance Use: No Preferred Language: Icelandic Communication Ability: Effective Visual Impairment: No Limitations Hearing Ability: Normal 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 Beliefs That Will Affect Care: None marital status: Current Living Situation: Spouse current occupational status: retired current occupation: retired - worked at [employer] Other Information That Helps Us Care for You: No Feels Safe at Home: Yes Safety Concerns: Feels Safe At This Time Childhood Exposure to Second-Hand Smoke: No caffeine: Yes (Soda x 10 cans per day.) during the past year weight has: remained stable Dental Care, Regularly: No Physical Activity Frequency: Daily Physical Activity Frequency Comment: house chores Seatbelt Use: always Sunscreen Use: No Assistive Devices: None Review of Systems Review of Systems: All systems reviewed & are unremarkable except as noted in HPI & below Physical Exam Constitutional: WD/WN, vitals as above Eyes: PERRL, conjunctivae normal, anicteric sclerae ENMT: external ear and nose normal, oropharynx normal Respiratory: Mild crackles bibasilar. No tachypnea. Cardiovascular: Rate/Rhythm: regular rate and regular rhythm 1+ edema b/l Skin: no rashes, warm and dry Neurologic: PERRL, EOMI, accommodation nl, no face palsy, no dysarthria Results & Data Results & Data ([facility]) Vital Signs (Past 12 Hours) Vital Signs Temp Pulse Pulse Pulse Resp BP BP 04/04/22 09:29 36.4 C L 81 18 153/74 H 04/04/22 07:37 37.1 C 72 16 161/73 H 04/04/22 02:16 67 15 04/03/22 23:10 18 04/03/22 22:34 Pulse Ox O2 Del Method O2 Flow Rate 04/04/22 09:29 94 Nasal Cannula 4 04/04/22 07:37 95 Nasal Cannula 4 04/04/22 02:16 92 5 04/03/22 23:10 95 Nasal Cannula 4 04/03/22 22:34 Nasal Cannula 5 PG Care Time/CCT Total # of Minutes Spent Total Time Spent with Patient: Total time spent is greater than 50% in coordination of care (as documented) at patient's floor/unit and/or counseling patient: Coding Level of Care Code 19348 Initial Inpt Care Lvl 3 Diagnoses Hypoxia R09.02 Diastolic CHF, acute on chronic I50.33 Volume overload E87.70 Acute kidney injury N17.9
--- NOTE | 2022-04-04 10:22 | Nephrology Progress Note ---
Date of Service April 04, 2022 Assessment & Plan (1) Acute kidney injury superimposed on CKD: Plan: * Non-oliguric KEEGAN. Likely ATN due to dehydration in the setting of ACEi therapy * Cr trending up in response to diuretic therapy. Cr 3.0 this am * Although CXR and chest CT show mild pulmonary edema, suspect patient has intravascular volume contraction. * Hgb improved to 8.0 following transfusion 1 u PRBC 04/03/22 * Continue gentle diuresis * Continue to hold dapagliflozin, lisinopril * Monitor UO, PRP (2) CKD (chronic kidney disease) stage 3, GFR 30-59 ml/min: Plan: * Biopsy proven advanced DKD. Baseline creatinine 1.6-1.9 mg/dL w/ UPCR > 8.0 * Will require follow up w/ Dr. Paige following discharge from hospital (3) Diabetic nephropathy associated with type 2 diabetes mellitus: Plan: * Hold IVORY and SGLT2i in setting of KEEGAN (4) Anemia: Plan: * Iron saturation 7% w/ ferritin 83. 1g IV Venofer has been ordered by hospitalist service * Will order FOBT * Consider transfusion to maintain Hgb > 8.0 (5) Secondary hyperparathyroidism: Plan: * Continue calcitriol 0.25 mcg MWF as Rx. Calcium remains normal. (6) Acute respiratory failure with hypoxia: Plan: * Await Pulmonology input Admission and Anticipated Discharge Date Admission Date: March 28, 2022 Review of Systems Constitutional: no fever Eyes: no problem reported Ear, Nose, Mouth, Throat: no problem reported Respiratory: no dyspnea Cardiovascular: no chest pain Gastrointestinal: no abdominal pain Genitourinary: no dysuria Physical Exam Constitutional: not in distress Eyes: PERRL, conjunctivae normal, anicteric sclerae ENMT: external ear and nose normal, oropharynx normal Neck: trachea midline, no thyromegaly Respiratory: normal respiratory effort, lungs clear to auscultation Cardiovascular: Rate/Rhythm: regular rate and regular rhythm Extremities: + edema Gastrointestinal (Abdomen): normal bowel sounds, soft, nontender, no hepatosplenomegaly Neurologic: not confused Speech / Cognition: normal cognition Results & Data ([facility]) Vital Signs (Past 12 Hours) Vital Signs Temp Pulse Pulse Pulse Resp BP BP 04/04/22 09:29 36.4 C L 81 18 153/74 H 04/04/22 07:37 37.1 C 72 16 161/73 H 04/04/22 02:16 67 15 04/03/22 23:10 18 04/03/22 22:34 Pulse Ox O2 Del Method O2 Flow Rate 04/04/22 09:29 94 Nasal Cannula 4 04/04/22 07:37 95 Nasal Cannula 4 04/04/22 02:16 92 5 04/03/22 23:10 95 Nasal Cannula 4 04/03/22 22:34 Nasal Cannula 5 Laboratory Results Laboratory Tests 04/04/22 04/04/22 08:12 08:12 WBC 13.31 H Hgb 8.0 L Hct 25.1 L Plt Count 294 Sodium 141 Potassium 4.2 Chloride 105 Carbon Dioxide 25 BUN 73 H Creatinine 3.02 H Glucose 86 Calcium 8.2 L Diagnostic Findings 03/28/22 Echocardiogram: LVEF 60 - 65%, no RWMA, RV and TV not well visualized due to body habitus 03/30/22 CXR: Interval progression of the mild interstitial pulmonary edema and trace bilateral pleural effusions. 04/02/[address]: 1. Interstitial pulmonary edema. Airspace opacities throughout the lungs which likely reflect alveolar pulmonary edema. A superimposed infectious process could appear similar but is considered less likely. Small bilateral pleural effusions. 2. Moderate cardiomegaly and coronary calcification. 3. Possible tracheobronchomalacia, suboptimally assessed on this exam due to respiratory motion. 4. Mildly enlarged mediastinal lymph nodes which may be related to pulmonary edema PG Care Time/CCT Total # of Minutes Spent Total Time Spent with Patient: Total time spent is greater than 50% in coordination of care (as documented) at patient's floor/unit and/or counseling patient: Coding Level of Care Code 65290 Subseq Hosp Care Lvl 3 Diagnoses Acute kidney injury superimposed on CKD N17.9; N18.9 CKD (chronic kidney disease) stage 3, GFR 30-59 ml/min N18.3 Diabetic nephropathy associated with type 2 diabetes mellitus E11.21 Anemia D64.9 Secondary hyperparathyroidism N25.81 Acute respiratory failure with hypoxia J96.01
[2022-04-04] MEDS: metOLazone 2.5 MG TABLET PO SCH (16:07)
--- NOTE | 2022-04-04 19:12 | Hospitalist Progress Note ---
Date of Service April 04, 2022 Assessment & Plan (1) Acute kidney injury superimposed on CKD: Plan: Patient has a h/o CKD stage 3b with baseline creatinine of 1.2-1.3, though recently has been in the 1.5-1.7 range. Cr on admission was 3.14 with a BUN of 72. Patient most likely has a KEEGAN on CKD most likely secondary to poor appetite, nonketotic hyperglycemia hospital diuresis, diuretics (furosemide,), lisinopril Renal US negative Patient started the patient on IV fluid, creatinine improved to 2.7, patient had non-anion gap metabolic acidosis, more awake she had hyponatremia and hyperkalemia and received bicarb drip and reports has been resolved Creatinine continues to drop today creatinine 2.04 Evidence of volume overload, tachypnea orthopnea and acute hypoxia developed today, initiated on Lasix 40 mg IV twice daily -Continue sodium bicarbonate 1300 Mg p.o. twice daily -continue to hold nephrotoxic meds and hold home Farxiga, lisinopril Continue Serrano catheter due to renal failure, significant urinary incontinence 04/03 Discontinue Serrano catheter Urine culture positive for E. coli pansensitive, patient completed course of treatment with Rocephin Discontinue Rocephin Creatinine is trending up Monitor blood nephrology -KEEGAN most likely secondary to ATN due to UTI and dehydration Chronic kidney disease Baseline creatinine is 1.6-1.9 Hold IVORY and SGLT2 inhibitors in the setting of KEEGAN 04/04 Creatinine is trending up, patient could be intravascularly depleted but overall volume overload Discussed with nephrology add low-dose of metolazone 2.5 mg daily BMP tomorrow (2) Acute respiratory failure with hypoxia: Plan: Secondary to volume overload from acute kidney injury with isotonic fluids being given for several days Chest x-ray with pulmonary edema on 03/30 -Started on Lasix 40 mg twice daily -ANDERSON's not accurately documented -Echocardiogram revealed preserved ejection fraction no significant valvular disease , concentric left mild concentric left ventricular hypertrophy, no comment right ventricular, no comment on diastolic dysfunction, no significant valvular disease -We will ask for pulmonary consult 04/04 Remains hypoxic with no improvement, appreciate pulmonary consult, add metolazone (3) Anemia: Plan: Severe iron deficiency anemia, hemoglobin dropped to 5.9, occult blood test is pending, status post transfusion of 1 unit of packed RBC, GI consult Transferrin saturation low quite low at 7% so also with iron deficiency-replace with IV Venofer 300 Mg daily x3 days no known blood loss follow CBC 04/04 Status post transfusion, hemoglobin today stable, pending GI consult which is not urgent especially given her hypoxia (4) Diabetes mellitus type 2, uncontrolled: Plan: - Patient's home regimen held on admission including dapagliflozin, NPH 70/30 - Continue BSG checks, sliding-scale insulin,Lantus, hypoglycemic protocol - Patient has not been checking her blood sugars at home and admits to not eating and drinking recently. - Hemoglobin A1C 7.2%-well controlled -ADA diet (5) Hypertension: Plan: -continue to hold lisinopril, home p.o. furosemide due to KEEGAN -BPs acceptable -amlodipine on hold -Will continue labetalol (6) Fatigue: Plan: - Most likely due to illness or depression. Will see how patient does once her KEEGAN improves. Checking urinalysis now as fatigue is worsening along with poor appetite (7) Dyslipidemia: Plan: -ok to continue home statin (8) Hyperthyroidism: Plan: -Continue at home methimazole -TSH was 4.7. (9) Major depressive disorder, recurrent severe without psychotic features: Plan: -continue at home venlafaxine (10) GERD without esophagitis: Plan: Continue home PPI (11) URI (upper respiratory infection): Plan: BioFire negative as above Continue Afrin nasal spray Plan DVT proph-heparin SQ Dispo-continued stay Admission and Anticipated Discharge Date Admission Date: March 28, 2022 Subjective Still remains hypoxic , follow-up chest x-ray showed worsening of pulmonary edema, not responding very well to Lasix, fluid balance is slightly negative, discussed with nephrology, creatinine is trending up, add metolazone low-dose 2.5 mg daily BMP tomorrow, appreciated pulmonary Physical Exam Physical Exam: GENERAL : No acute distress EYES: No icterus, gaze conjugate NOSE: No evidence of epistaxis MOUTH: No lesions or candidiasis NECK: Supple LUNGS: CTA B/L, no wheezes, rales or rhonchi HEART: Regular, rate controlled ABDOMEN: Soft, NT, ND, BS Present EXTREMITIES: No LE edema, pedal pulses intact NEURO: A&OX3 Constitutional: WD/WN, vitals as above well developed and + morbidly obese; no acute distress and not in distress Eyes: PERRL, conjunctivae normal, anicteric sclerae + anicteric sclerae; no conjunctival abnormality (with watery discharge bilat) and no corneal abnormality ENMT: external ear and nose normal, oropharynx normal Nose: no external nose abnormality Mouth: no oral mucosal abnormality and oral mucous membranes not dry Neck: trachea midline, no thyromegaly normal visual inspection and trachea midline Respiratory: normal respiratory effort, lungs clear to auscultation normal respiratory effort, + cough (Occasional) and + tachypneic (With minimal exertion) Auscultation: lungs clear to auscultation bilaterally, + crackles (Bibasilar) and + wheezes (Bilateral expiratory); no rhonchi Cardiovascular: RRR, no murmur, no edema Rate/Rhythm: regular rate and regular rhythm Heart Sounds: normal S1 and normal S2; no murmur Extremities: + edema Chest (Breasts): Chest: normal inspection of chest Gastrointestinal (Abdomen): normal bowel sounds, soft, nontender, no hepatosplenomegaly Musculoskeletal: no cyanosis or clubbing, extremities motor strength 5/5 Extremities: extremities normal to inspection; no cyanosis and no clubbing Skin: no rashes, warm and dry normal turgor; no lesions Neurologic: patellar DTR's 2+ bilat, sensation intact moves all extremities and awake; no focal motor deficits and not confused Speech / Cognition: normal cognition Motor/Sensory: no tremor and no asterixis Psychiatric: A+Ox3, euthymic affect Orientation: alert and oriented x 3 Lymphatic: no lymphedema Results & Data Results & Data ([facility]) Vital Signs (Past 12 Hours) Vital Signs Temp Pulse Pulse Resp BP BP Pulse Ox 04/04/22 15:00 36.5 C 74 18 142/72 H 95 04/04/22 07:40 04/04/22 09:29 36.4 C L 81 18 153/74 H 94 04/04/22 07:37 37.1 C 72 16 161/73 H 95 O2 Del Method O2 Flow Rate 04/04/22 15:00 Nasal Cannula 4 04/04/22 07:40 Nasal Cannula 4 04/04/22 09:29 Nasal Cannula 4 04/04/22 07:37 Nasal Cannula 4 PG Care Time/CCT Total # of Minutes Spent Total Time Spent with Patient: Total time spent is greater than 50% in coordination of care (as documented) at patient's floor/unit and/or counseling patient: Coding Level of Care Code 01312 Subseq Hosp Care Lvl 3 Diagnoses Acute kidney injury superimposed on CKD N17.9; N18.9 Acute respiratory failure with hypoxia J96.01 Anemia D64.9 Diabetes mellitus type 2, uncontrolled E11.65 Glycemic state: with hyperglycemia Hypertension I10 Hypertension type: unspecified Fatigue R53.83 Fatigue type: unspecified Dyslipidemia E78.5 Hyperthyroidism E05.90 Major depressive disorder, recurrent severe without psychotic features F33.2 GERD without esophagitis K21.9 URI (upper respiratory infection) J06.9 (1) Diabetes mellitus type 2, uncontrolled Glycemic state: with hyperglycemia Qualified Code(s): E11.65 - Type 2 diabetes mellitus with hyperglycemia (2) Hypertension Hypertension type: unspecified Qualified Code(s): I10 - Essential (primary) hypertension (3) Fatigue Fatigue type: unspecified Qualified Code(s): R53.83 - Other fatigue
[2022-04-05] MEDS: ACETAMINOPHEN 325 MG TAB PO PRN (06:23)
[2022-04-05] MEDS: VENLAFAXINE HCL XR 150 MG CAPXR PO SCH (08:17)
[2022-04-05] MEDS: PANTOprazole 40 MG TAB PO SCH (08:17)
[2022-04-05] MEDS: ROSUVASTATIN CALCIUM 10 MG TAB PO SCH (08:17)
[2022-04-05] MEDS: diphenhydrAMINE Capsule 25 MG CAP PO SCH ×2 (08:18→13:07)
[2022-04-05] MEDS: methIMAzole 5 MG TABLET PO SCH (08:18)
[2022-04-05] MEDS: LABETALOL HCL 200 MG TAB PO SCH ×2 (08:18→20:47)
[2022-04-05] MEDS: CYANOCOBALAMIN (B-12) 500 MCG TABLET PO SCH (08:18)
[2022-04-05] MEDS: HEPARIN SOD 5,000 UNIT/0.5 ML VIAL SQ SCH ×2 (08:18→20:48)
[2022-04-05] MEDS: metOLazone 2.5 MG TABLET PO SCH (08:18)
[2022-04-05] MEDS: CARBAMIDE PEROXIDE 6.5% 15 ML BTL OT SCH (08:19)
[2022-04-05] MEDS: KETOROLAC 0.5% OP SOLN 5 ML BTL OPB SCH ×2 (08:19→20:49)
[2022-04-05] MEDS: POLYETHYLENE (MIRALAX) 17 GM PACK PO SCH (08:20)
[2022-04-05] MEDS: FUROSEMIDE 40 MG/4 ML VIAL IV SCH ×2 (08:20→16:47)
[2022-04-05] MEDS: IRON SUCROSE 400 MG in SODIUM CHLORIDE 0.9% 250 ML IV SCH (08:20)
[2022-04-05 08:31] LABS: Hematocrit (blood only) 25.4 % (34.1-44.9); Hemoglobin 8.2 g/dl (12.0-16.0); Mean Corpuscular Hgb Conc 32.3 g/dL (32.0-36.0); Mean Corpuscular Volume 99.2 fL (80.0-100.0); Mean Platelet Volume 11.1 fL (9.4-12.3); Nucleated RBC # (auto) 0.03 K/uL (0-0); Nucleated RBC % (auto) 0.2 %; Platelet Count 317 K/uL (130-400); RDW Coefficient of Variation 13.9 % (11.5-14.5); RDW Standard Deviation 49.6 fL (36.4-46.3); Red Blood Count 2.56 M/uL (3.93-5.22); White Blood Count 13.34 K/ul (4.8-10.8)
[2022-04-05 08:53] LABS: BUN Creatinine Ratio 25.6 (10-20); Calcium 8.5 mg/dl (8.5-10.1); Creatinine Clr Calc Pharmacy 20.1 ml/min; Est GFR (African American) 18.7 ml/min; Est GFR (Non-African American) 16.1 ml/min; Potassium 3.7 mmol/L (3.5-5.1)
[2022-04-05] MEDS: INSULIN ASPART PER UNIT SC SCH ×4 (09:04→21:14)
--- NOTE | 2022-04-05 09:07 | Nephrology Progress Note ---
Date of Service April 05, 2022 Assessment & Plan (1) Acute kidney injury superimposed on CKD: Plan: * Non-oliguric KEEGAN. Likely ATN due to dehydration in the setting of ACEi therapy * Cr stable to mildly improved * Net 1800 cc diuresis in response to blood transfusion and combination furosemide + metolazone * Continue diuresis w/ target 1 -2 L net UO/day * Continue to hold dapagliflozin, lisinopril * Monitor UO, PRP (2) CKD (chronic kidney disease) stage 3, GFR 30-59 ml/min: Plan: * Biopsy proven advanced DKD. Baseline creatinine 1.6-1.9 mg/dL w/ UPCR > 8.0 * Renal biopsy completed 02/27. Urine sediment negative for RBC/WBC casts this hospitalization * Will require follow up w/ Dr. Paige following discharge from hospital (3) Diabetic nephropathy associated with type 2 diabetes mellitus: Plan: * Hold IVORY and SGLT2i in setting of KEEGAN (4) Anemia: Plan: * Iron saturation 7% w/ ferritin 83. 1g IV Venofer has been ordered by hospitalist service * FOBT - pending * Recommend transfusion to maintain Hgb > 8.0 (5) Secondary hyperparathyroidism: Plan: * Continue calcitriol 0.25 mcg MWF as Rx. Calcium remains normal. (6) Acute respiratory failure with hypoxia: Plan: * 04/04 Pulmonology report reviewed: hypoxia likely related to diastolic heart failure and high output related to anemia Admission and Anticipated Discharge Date Admission Date: March 28, 2022 Subjective Ms. Mei was evaluated in her hospital room this morning. She reports good response to diuretic therapy yesterday and notes that her O2 has been reduced to 3 L/min NC. Ms. Mei denied overt blood loss. Review of Systems Constitutional: no fever Eyes: no problem reported Ear, Nose, Mouth, Throat: no problem reported Respiratory: no dyspnea Cardiovascular: no chest pain Gastrointestinal: no abdominal pain Genitourinary: no dysuria Physical Exam Constitutional: not in distress Eyes: PERRL, conjunctivae normal, anicteric sclerae ENMT: external ear and nose normal, oropharynx normal Neck: trachea midline, no thyromegaly Respiratory: normal respiratory effort, lungs clear to auscultation Cardiovascular: Rate/Rhythm: regular rate and regular rhythm Extremities: + edema Gastrointestinal (Abdomen): normal bowel sounds, soft, nontender, no hepatosplenomegaly Neurologic: not confused Speech / Cognition: normal cognition Results & Data ([facility]) Vital Signs (Past 12 Hours) Vital Signs Temp Pulse Pulse Resp BP BP Pulse Ox 04/05/22 07:39 37.1 C 74 20 162/79 H 90 04/04/22 22:48 37.0 C 75 18 144/81 H 93 O2 Del Method O2 Flow Rate 04/05/22 07:39 Nasal Cannula 3 04/04/22 22:48 Nasal Cannula 4 Laboratory Results Laboratory Tests 04/05/22 04/05/22 07:57 07:57 WBC 13.34 H Hgb 8.2 L Hct 25.4 L Plt Count 317 Sodium 141 Potassium 3.7 Chloride 104 Carbon Dioxide 28 BUN 72 H Creatinine 2.81 H Glucose 85 Diagnostic Findings 04/05/22 CXR: 1. Cardiomegaly with mild improvement of the mixed interstitial and alveolar opacities. 2. Small pleural effusions. PG Care Time/CCT Total # of Minutes Spent Total Time Spent with Patient: Total time spent is greater than 50% in coordination of care (as documented) at patient's floor/unit and/or counseling patient: Coding Level of Care Code 35827 Subseq Hosp Care Lvl 3 Diagnoses Acute kidney injury superimposed on CKD N17.9; N18.9 CKD (chronic kidney disease) stage 3, GFR 30-59 ml/min N18.3 Diabetic nephropathy associated with type 2 diabetes mellitus E11.21 Anemia D64.9 Secondary hyperparathyroidism N25.81 Acute respiratory failure with hypoxia J96.01
[2022-04-05] MEDS: LANTUS PER UNIT CHARGE SQ SCH ×2 (09:10→21:20)
--- NOTE | 2022-04-05 10:36 | XRay Report ---
XR chest 2V PA/lateral HISTORY: 71 years-old Female edema acute shortness of breath COMPARISON: Chest radiograph 04/03/2022, chest CT 04/02/2022 TECHNIQUE: AP view of the chest FINDINGS: Cardiac silhouette is enlarged. Atherosclerosis of the aorta. Pulmonary vascular congestion with mixe d interstitial and alveolar opacities and small pleural effusions redemonstrated, mildly improved. De generative changes of the shoulders and spine. IMPRESSION: 1. Cardiomegaly with mild improvement of the mixed interstitial and alveolar opacities. 2. Small pleural effusions. ACT 112: Negative or not required by law. The above report was generated using voice recognition software. It may contain grammatical, syntax o r spelling errors. Electronically signed by: Boo Hammond M.D. 04/05/2022 10:34 AM
--- NOTE | 2022-04-05 17:56 | Pulmonology Progress Note ---
Date of Service April 05, 2022 Assessment & Plan (1) Hypoxia: Plan: Acute symptoms secondary to volume overload from heart failure and renal failure. Chest x-ray with less edema. Autoimmune labs pending, but unlikely to be positive. ESR and CRP are elevated, but nonspecific. Doubt pulmonary renal syndrome. No role for bronchoscopy at this time. Hypoxia and hemoglobin improving. Creatinine improving. Continue with out of bed to chair and aggressive IS therapy. Continue diuresis per nephrology. Continue aggressive blood pressure control given her diastolic heart failure. No further pulmonary interventions. Discussed with the rest of her family at bedside as well. Thank you for the consult. We will sign off. (2) Diastolic CHF, acute on chronic: Plan: Continue diuresis as able. (3) Volume overload: Plan: Diuresis as above (4) Acute kidney injury: Plan Thank you for the consult. Admission and Anticipated Discharge Date Admission Date: March 28, 2022 Subjective Patient sitting up in a chair today. She walked around the hallways with PT. Overall she is less short of breath and needing less oxygen. Urine output remains adequate. Review of Systems Review of Systems: All systems reviewed & are unremarkable except as noted in HPI & below Physical Exam Constitutional: WD/WN, vitals as above Eyes: PERRL, conjunctivae normal, anicteric sclerae ENMT: external ear and nose normal, oropharynx normal Respiratory: Mild crackles bibasilar. No tachypnea. Cardiovascular: Rate/Rhythm: regular rate and regular rhythm 1+ edema b/l Skin: no rashes, warm and dry Neurologic: PERRL, EOMI, accommodation nl, no face palsy, no dysarthria Results & Data Results & Data ([facility]) Vital Signs (Past 12 Hours) Vital Signs Temp Pulse Resp BP BP Pulse Ox O2 Del Method 04/05/22 15:37 36.9 C 68 19 171/84 H 97 Nasal Cannula 04/05/22 14:51 91 04/05/22 07:24 Nasal Cannula 04/05/22 08:32 18 96 Nasal Cannula 04/05/22 07:39 37.1 C 74 20 162/79 H 90 Nasal Cannula O2 Flow Rate 04/05/22 15:37 3 04/05/22 14:51 04/05/22 07:24 3 04/05/22 08:32 3 04/05/22 07:39 3 PG Care Time/CCT Total # of Minutes Spent Total Time Spent with Patient: Total time spent is greater than 50% in coordination of care (as documented) at patient's floor/unit and/or counseling patient: Coding Level of Care Code 62282 Subseq Hosp Care Lvl 2 Diagnoses Hypoxia R09.02 Diastolic CHF, acute on chronic I50.33 Volume overload E87.70 Acute kidney injury N17.9
--- NOTE | 2022-04-05 18:42 | Hospitalist Progress Note ---
Date of Service April 05, 2022 Assessment & Plan (1) Acute kidney injury superimposed on CKD: Plan: Patient has a h/o CKD stage 3b with baseline creatinine of 1.2-1.3, though recently has been in the 1.5-1.7 range. Cr on admission was 3.14 with a BUN of 72. Patient most likely has a KEEGAN on CKD most likely secondary to poor appetite, nonketotic hyperglycemia hospital diuresis, diuretics (furosemide,), lisinopril Renal US negative Patient started the patient on IV fluid, creatinine improved to 2.7, patient had non-anion gap metabolic acidosis, more awake she had hyponatremia and hyperkalemia and received bicarb drip and reports has been resolved Creatinine continues to drop today creatinine 2.04 Evidence of volume overload, tachypnea orthopnea and acute hypoxia developed today, initiated on Lasix 40 mg IV twice daily -Continue sodium bicarbonate 1300 Mg p.o. twice daily -continue to hold nephrotoxic meds and hold home Farxiga, lisinopril Continue Serrano catheter due to renal failure, significant urinary incontinence 04/03 Discontinue Serrano catheter Urine culture positive for E. coli pansensitive, patient completed course of treatment with Rocephin Discontinue Rocephin Creatinine is trending up Monitor blood nephrology -KEEGAN most likely secondary to ATN due to UTI and dehydration Chronic kidney disease Baseline creatinine is 1.6-1.9 Hold IVORY and SGLT2 inhibitors in the setting of KEEGAN 04/04 Creatinine is trending up, patient could be intravascularly depleted but overall volume overload Discussed with nephrology add low-dose of metolazone 2.5 mg daily BMP tomorrow 04/05 Creatinine is trending down slightly, possible cardiorenal syndrome, continue current treatment, continue Lasix as well as metolazone BMP tomorrow (2) Acute respiratory failure with hypoxia: Plan: Secondary to volume overload from acute kidney injury with isotonic fluids being given for several days Chest x-ray with pulmonary edema on 03/30 -Started on Lasix 40 mg twice daily -ANDERSON's not accurately documented -Echocardiogram revealed preserved ejection fraction no significant valvular disease , concentric left mild concentric left ventricular hypertrophy, no comment right ventricular, no comment on diastolic dysfunction, no significant valvular disease -We will ask for pulmonary consult 04/04 Remains hypoxic with no improvement, appreciate pulmonary consult, add metolazon e 04/05 Urine output is picking up after initiating of Lasix, fluid balance -1500 negative patient remained hypoxic, BMP tomorrow Continue current management (3) Anemia: Plan: Severe iron deficiency anemia, hemoglobin dropped to 5.9, occult blood test is pending, status post transfusion of 1 unit of packed RBC, GI consult Transferrin saturation low quite low at 7% so also with iron deficiency-replace with IV Venofer 300 Mg daily x3 days no known blood loss follow CBC 04/04 Status post transfusion, hemoglobin today stable, pending GI consult which is not urgent especially given her hypoxia 04/05 Received IV iron, discontinue IV iron, iron level follow-up is within acceptable range, recheck with transferrin saturation tomorrow (4) Diabetes mellitus type 2, uncontrolled: Plan: - Patient's home regimen held on admission including dapagliflozin, NPH - Continue BSG checks, sliding-scale insulin,Lantus, hypoglycemic protocol - Patient has not been checking her blood sugars at home and admits to not eating and drinking recently. - Hemoglobin A1C 7.2%-well controlled -ADA diet 04/05 With the current regimen it is fairly controlled (5) Hypertension: Plan: -continue to hold lisinopril, home p.o. furosemide due to KEEGAN -BPs acceptable -amlodipine on hold -Will continue labetalol 03/27 Blood pressure is not controlled Resume amlodipine 10 mg daily Continue labetalol (6) Fatigue: Plan: - Most likely due to illness or depression. Will see how patient does once her KEEGAN improves. Checking urinalysis now as fatigue is worsening along with poor appetite (7) Dyslipidemia: Plan: -ok to continue home statin (8) Hyperthyroidism: Plan: -Continue at home methimazole -TSH was 4.7. (9) Major depressive disorder, recurrent severe without psychotic features: Plan: -continue at home venlafaxine (10) GERD without esophagitis: Plan: Continue home PPI (11) URI (upper respiratory infection): Plan: BioFire negative as above Continue Afrin nasal spray Plan DVT proph-heparin SQ Dispo-continued stay Admission and Anticipated Discharge Date Admission Date: March 28, 2022 Subjective The past negative for 1600 today, patient urine output is picking up after started on metolazone, continue current treatment, including chest x-ray patient pulm edema, but BNP is mildly elevated, continue current treatment, the patient remained hypoxic, poorly controlled hypertension, managed BP meds Physical Exam Physical Exam: GENERAL : No acute distress EYES: No icterus, gaze conjugate NOSE: No evidence of epistaxis MOUTH: No lesions or candidiasis NECK: Supple LUNGS: CTA B/L, no wheezes, rales or rhonchi HEART: Regular, rate controlled ABDOMEN: Soft, NT, ND, BS Present EXTREMITIES: No LE edema, pedal pulses intact NEURO: A&OX3 Constitutional: WD/WN, vitals as above well developed and + morbidly obese; no acute distress and not in distress Eyes: PERRL, conjunctivae normal, anicteric sclerae + anicteric sclerae; no conjunctival abnormality (with watery discharge bilat) and no corneal abnormal ity ENMT: external ear and nose normal, oropharynx normal Nose: no external nose abnormality Mouth: no oral mucosal abnormality and oral mucous membranes not dry Neck: trachea midline, no thyromegaly normal visual inspection and trachea midline Respiratory: normal respiratory effort, lungs clear to auscultation normal respiratory effort, + cough (Occasional) and + tachypneic (With minimal exertion) Auscultation: lungs clear to auscultation bilaterally, + crackles (Bibasilar) and + wheezes (Bilateral expiratory); no rhonchi Cardiovascular: RRR, no murmur, no edema Rate/Rhythm: regular rate and regular rhythm Heart Sounds: normal S1 and normal S2; no murmur Extremities: + edema Chest (Breasts): Chest: normal inspection of chest Gastrointestinal (Abdomen): normal bowel sounds, soft, nontender, no hepatosplenomegaly Musculoskeletal: no cyanosis or clubbing, extremities motor strength 5/5 Extremities: extremities normal to inspection; no cyanosis and no clubbing Skin: no rashes, warm and dry normal turgor; no lesions Neurologic: patellar DTR's 2+ bilat, sensation intact moves all extremities and awake; no focal motor deficits and not confused Speech / Cognition: normal cognition Motor/Sensory: no tremor and no asterixis Psychiatric: A+Ox3, euthymic affect Orientation: alert and oriented x 3 Lymphatic: no lymphedema Results & Data Results & Data ([facility]) Vital Signs (Past 12 Hours) Vital Signs Temp Pulse Resp BP BP Pulse Ox O2 Del Method 04/05/22 15:37 36.9 C 68 19 171/84 H 97 Nasal Cannula 04/05/22 14:51 91 04/05/22 07:24 Nasal Cannula 04/05/22 08:32 18 96 Nasal Cannula 04/05/22 07:39 37.1 C 74 20 162/79 H 90 Nasal Cannula O2 Flow Rate 04/05/22 15:37 3 04/05/22 14:51 04/05/22 07:24 3 04/05/22 08:32 3 04/05/22 07:39 3 PG Care Time/CCT Total # of Minutes Spent Total Time Spent with Patient: Total time spent is greater than 50% in coordination of care (as documented) at patient's floor/unit and/or counseling patient: Coding Level of Care Code 08141 Subseq Hosp Care Lvl 3 Diagnoses Acute kidney injury superimposed on CKD N17.9; N18.9 Acute respiratory failure with hypoxia J96.01 Anemia D64.9 Diabetes mellitus type 2, uncontrolled E11.65 Glycemic state: with hyperglycemia Hypertension I10 Hypertension type: unspecified Fatigue R53.83 Fatigue type: unspecified Dyslipidemia E78.5 Hyperthyroidism E05.90 Major depressive disorder, recurrent severe without psychotic features F33.2 GERD without esophagitis K21.9 URI (upper respiratory infection) J06.9 (1) Diabetes mellitus type 2, uncontrolled Glycemic state: with hyperglycemia Qualified Code(s): E11.65 - Type 2 diabete s mellitus with hyperglycemia (2) Hypertension Hypertension type: unspecified Qualified Code(s): I10 - Essential (primary) hypertension (3) Fatigue Fatigue type: unspecified Qualified Code(s): R53.83 - Other fatigue
[2022-04-05] MEDS: amLODIPine BESYLATE 5 MG TAB PO SCH (21:20)
[2022-04-06 07:54] LABS: Hematocrit (blood only) 28.9 % (34.1-44.9); Hemoglobin 9.5 g/dl (12.0-16.0); Mean Corpuscular Hemoglobin 32.2 pg (25.0-34.0); Mean Corpuscular Hgb Conc 32.9 g/dL (32.0-36.0); Mean Platelet Volume 10.6 fL (9.4-12.3); Nucleated RBC # (auto) 0.03 K/uL (0-0); Nucleated RBC % (auto) 0.2 %; Platelet Count 342 K/uL (130-400); RDW Coefficient of Variation 14.5 % (11.5-14.5); RDW Standard Deviation 48.5 fL (36.4-46.3); Red Blood Count 2.95 M/uL (3.93-5.22); White Blood Count 14.53 K/ul (4.8-10.8)
[2022-04-06 08:15] LABS: BUN Creatinine Ratio 28.8 (10-20); Calcium 8.8 mg/dl (8.5-10.1); Creatinine Clr Calc Pharmacy 24.2 ml/min; Est GFR (African American) 23.4 ml/min; Est GFR (Non-African American) 20.2 ml/min; Potassium 3.7 mmol/L (3.5-5.1)
--- NOTE | 2022-04-06 08:57 | Nephrology Progress Note ---
Date of Service April 06, 2022 Assessment & Plan (1) Acute kidney injury superimposed on CKD: Plan: * Non-oliguric KEEGAN. Likely ATN due to dehydration in the setting of ACEi therapy * Cr improving following blood transfusion to replenish intravascular volume and diuretic therapy for volume unloading (Cr 2.3 today, baseline 1.9) * Net 1800 cc diuresis last 24 hours * Continue diuresis w/ target 1 -2 L net UO/day * Continue to hold dapagliflozin, lisinopril * Monitor UO, PRP * No further Nephrology evaluation indicated at this time. Will sign off. Please have patient follow up w/ Dr. Paige following discharge from the hosp ital (2) CKD (chronic kidney disease) stage 3, GFR 30-59 ml/min: Plan: * Biopsy proven advanced DKD. Baseline creatinine 1.6-1.9 mg/dL w/ UPCR > 8.0 * Renal biopsy completed 02/27. Urine sediment negative for RBC/WBC casts this hospitalization (3) Diabetic nephropathy associated with type 2 diabetes mellitus: Plan: * Hold IVORY and SGLT2i in setting of KEEGAN (4) Anemia: Plan: * Iron saturation 7% w/ ferritin 83. 1g IV Venofer has been ordered by hospitalist service * 04/06/22 FOBT - negative * Recommend transfusion to maintain Hgb > 8.0 (5) Secondary hyperparathyroidism: Plan: * Continue calcitriol 0.25 mcg MWF as Rx. Calcium remains normal. (6) Acute respiratory failure with hypoxia: Plan: * 04/04 Pulmonology report reviewed: hypoxia likely related to diastolic heart failure and high output related to anemia Admission and Anticipated Discharge Date Admission Date: March 28, 2022 Subjective Ms. Mei was evaluated in her hospital room this morning. She reports good response to diuretic therapy yesterday and notes that her O2 has been reduced to 3 L/min NC. Ms. Mei denied overt blood loss. Review of Systems Constitutional: no fever Eyes: no problem reported Ear, Nose, Mouth, Throat: no problem reported Respiratory: no dyspnea Cardiovascular: no chest pain Gastrointestinal: no abdominal pain Genitourinary: no dysuria Physical Exam Constitutional: not in distress Eyes: PERRL, conjunctivae normal, anicteric sclerae ENMT: external ear and nose normal, oropharynx normal Neck: trachea midline, no thyromegaly Respiratory: normal respiratory effort, lungs clear to auscultation Cardiovascular: Rate/Rhythm: regular rate and regular rhythm Extremities: + edema Gastrointestinal (Abdomen): normal bowel sounds, soft, nontender, no hepatos plenomegaly Neurologic: not confused Speech / Cognition: normal cognition Results & Data ([facility]) Vital Signs (Past 12 Hours) Vital Signs Temp Pulse Pulse Resp BP BP Pulse Ox 04/06/22 08:17 36.8 C 77 18 151/81 H 95 04/05/22 22:02 36.7 C 73 20 156/74 H 94 O2 Del Method O2 Flow Rate 04/06/22 08:17 Nasal Cannula 3 04/05/22 22:02 Nasal Cannula 3 Laboratory Results Laboratory Tests 04/06/22 04/06/22 07:38 07:38 WBC 14.53 H Hgb 9.5 L Hct 28.9 L Plt Count 342 Sodium 142 Potassium 3.7 Chloride 102 Carbon Dioxide 29 BUN 67 H Creatinine 2.33 H D Glucose 85 PG Care Time/CCT Total # of Minutes Spent Total Time Spent with Patient: Total time spent is greater than 50% in coordination of care (as documented) at patient's floor/unit and/or counseling patient: Coding Level of Care Code 65597 Subseq Hosp Care Lvl 3 Diagnoses Acute kidney injury superimposed on CKD N17.9; N18.9 CKD (chronic kidney disease) stage 3, GFR 30-59 ml/min N18.3 Diabetic nephropathy associated with type 2 diabetes mellitus E11.21 Anemia D64.9 Secondary hyperparathyroidism N25.81 Acute respiratory failure with hypoxia J96.01
[2022-04-06] MEDS: PANTOprazole 40 MG TAB PO SCH (09:24)
[2022-04-06] MEDS: LABETALOL HCL 200 MG TAB PO SCH ×2 (09:24→20:27)
[2022-04-06] MEDS: ROSUVASTATIN CALCIUM 10 MG TAB PO SCH (09:24)
[2022-04-06] MEDS: CYANOCOBALAMIN (B-12) 500 MCG TABLET PO SCH (09:24)
[2022-04-06] MEDS: VENLAFAXINE HCL XR 150 MG CAPXR PO SCH (09:25)
[2022-04-06] MEDS: metOLazone 2.5 MG TABLET PO SCH (09:25)
[2022-04-06] MEDS: CALCITRIOL 0.25 MCG CAPSULE PO SCH (09:25)
[2022-04-06] MEDS: amLODIPine BESYLATE 5 MG TAB PO SCH (09:25)
[2022-04-06] MEDS: FUROSEMIDE 40 MG/4 ML VIAL IV SCH ×2 (09:28→16:48)
[2022-04-06] MEDS: HEPARIN SOD 5,000 UNIT/0.5 ML VIAL SQ SCH ×2 (09:30→20:24)
[2022-04-06] MEDS: KETOROLAC 0.5% OP SOLN 5 ML BTL OPB SCH ×2 (09:32→20:26)
[2022-04-06] MEDS: POLYETHYLENE (MIRALAX) 17 GM PACK PO SCH (09:33)
[2022-04-06] MEDS: INSULIN ASPART PER UNIT SC SCH ×4 (10:08→20:35)
[2022-04-06] MEDS: LANTUS PER UNIT CHARGE SQ SCH ×2 (10:09→20:36)
[2022-04-06] MEDS: methIMAzole 5 MG TABLET PO SCH (12:07)
--- NOTE | 2022-04-06 19:32 | Hospitalist Progress Note ---
Date of Service April 06, 2022 Assessment & Plan (1) Acute kidney injury superimposed on CKD: Plan: Attending: Dr. Gutierrez Impression: 71-year-old female admitted yesterday for weakness and fatigue, shortness of breath, KEEGAN on chronic kidney disease stage III, and hyperkalemia. Potassium remains of 5.5 this morning. She demonstrates no hypoxia and currently is saturating well on room air. She has no fever. No elevation of white count. She does have anemia with hemoglobin of 8.1. She follows with Dr. Paige and nephrology and was last seen 02/27/2022. Currently not receiving antibiotics. She is receiving normal saline at 110 mL/h. Baseline creatinine is 1.3-1.4 Patient reports poor oral intake over the last 2 to 3 days Questionable viral illness several days ago Continue IV fluids and monitor serial labs Renal ultra sound was unremarkable (2) SOB (shortness of breath) on exertion: Plan: CXR with cardiomegally and no other acute cardiopulmonary abnorma;ities Saturating at 93% on room air Increase ambulation as tolerated. Continue usual antihypertensive and diuretic home medications EKG with NSR and occasional PVCs. Otherwise, normal EKG QtC 410 (3) Stage 3b chronic kidney disease: Plan: Follows with Dr. Paige in the outpatient clinic Baseline creatinine 1.3-1.7 Chronic nephrotic syndrome Renal biopsy with interventional radiology at [facility] 02/19/2022 * Mildly atrophic left kidney without hydronephrosis * No malignancy identified. Tissue was favored to be related to diabetic n ephropathy. No evidence of concomitant glomerulonephritis or an immune complex mediated process. See pathology report below Continue with IV hydration. Follow serial labs. Continue outpatient management with Dr. Paige If no movement in creatinine with evening labs, consider nephrology consult so patient could be seen in the morning (4) Hyperkalemia: Plan: Potassium level 5.5 today Continue with hydration and following serial labs Patient was given 10 units of IV insulin for hyperkalemia yesterday and sugars dropped down to 52. This time, patient continues to be asymptomatic. Troponin within normal limits Repeat EKG NSR with no evidence of peaked T-waves Will give 8.4gms of Patiromer to bind the potassium Repeat PRP in 6 hours. If K+ still elevated, consider additional dose and bicarb gtt (5) GERD without esophagitis: Plan: Continue daily PPI (6) Diabetes mellitus type 2, uncontrolled: Plan: Hemoglobin A1c is 7.2% Hypoglycemic after insulin dose for hyperkalemia Continue Lantus and SSI (7) Dyslipidemia: Plan: Home medications include rosuvastatin 10 mg p.o. daily (8) Hyperthyroidism: Plan: Continue methimazole Patient's TSH is 4.7 (9) Major depressive disorder, recurrent severe without psychotic features: Plan: Continue home dose of venlafaxine Plan DVT prophylaxis: SCDs. Hold chemical prophylaxis for now secondary to anemia. Ambulate as tolerated Admission and Anticipated Discharge Date Admission Date: March 28, 2022 Subjective No output is recorded, however patient feels significantly better, creatinine is trending down, Results & Data Results & Data ([facility]) Vital Signs (Past 12 Hours) Vital Signs Temp Pulse Resp BP Pulse Ox O2 Del Method O2 Flow Rate 04/06/22 07:55 Nasal Cannula 3 04/06/22 08:17 36.8 C 77 18 151/81 H 95 Nasal Cannula 3 PG Care Time/CCT Total # of Minutes Spent Total Time Spent with Patient: Total time spent is greater than 50% in coordination of care (as documented) at patient's floor/unit and/or counseling patient: Coding Diagnoses Acute kidney injury superimposed on CKD N17.9; N18.9 SOB (shortness of breath) on exertion R06.02 Stage 3b chronic kidney disease N18.32 Hyperkalemia E87.5 GERD without esophagitis K21.9 Diabetes mellitus type 2, uncontrolled E11.65 Glycemic state: with hyperglycemia Dyslipidemia E78.5 Hyperthyroidism E05.90 Major depressive disorder, recurrent severe without psychotic features F33.2 (1) Diabetes mellitus type 2, uncontrolled Glycemic state: with hyperglycemia Qualified Code(s): E11.65 - Type 2 diabetes mellitus with hyperglycemia
--- NOTE | 2022-04-06 19:43 | Hospitalist Progress Note ---
Date of Service April 06, 2022 Assessment & Plan (1) Acute kidney injury superimposed on CKD: Plan: elsi has a h/o CKD stage 3b with baseline creatinine of 1.2-1.3, though recently has been in the 1.5-1.7 range. Cr on admission was 3.14 with a BUN of 72. Patient most likely has a KEEGAN on CKD most likely secondary to poor appetite, nonketotic hyperglycemia hospital diuresis, diuretics (furosemide,), lisinopril Renal US negative Patient started the patient on IV fluid, creatinine improved to 2.7, patient had non-anion gap metabolic acidosis, more awake she had hyponatremia and hyperkalemia and received bicarb drip and reports has been resolved Creatinine continues to drop today creatinine 2.04 Evidence of volume overload, tachypnea orthopnea and acute hypoxia developed today, initiated on Lasix 40 mg IV twice daily -Continue sodium bicarbonate 1300 Mg p.o. twice daily -continue to hold nephrotoxic meds and hold home Farxiga, lisinopril Continue Serrano catheter due to renal failure, significant urinary incontinence 04/03 Discontinue Serrano catheter Urine culture positive for E. coli pansensitive, patient completed course of treatment with Rocephin Discontinue Rocephin Creatinine is trending up Monitor blood nephrology -KEEGAN most likely secondary to ATN due to UTI and dehydration Chronic kidney disease Baseline creatinine is 1.6-1.9 Hold IVORY and SGLT2 inhibitors in the setting of KEEGAN 04/04 Creatinine is trending up, patient could be intravascularly depleted but overall volume overload Discussed with nephrology add low-dose of metolazone 2.5 mg daily BMP tomorrow 04/05 Creatinine is trending down slightly, possible cardiorenal syndrome, continue current treatment, continue Lasix as well as metolazone BMP tomorrow 04/06 Creatinine trending down, continue current management, BMP tomorrow, no urine output recorded despite I talked to the nurses multiple times (2) SOB (shortness of breath) on exertion: Plan: Secondary to volume overload from acute kidney injury with isotonic fluids being given for several days Chest x-ray with pulmonary edema on 03/30 -Started on Lasix 40 mg twice daily -ANDERSON's not accurately documented -Echocardiogram revealed preserved ejection fraction no significant valvular disease , concentric left mild concentric left ventricular hypertrophy, no comment right ventricular, no comment on diastolic dysfunction, no significant valvular disease -We will ask for pulmonary consult 04/04 Remains hypoxic with no improvement, appreciate pulmonary consult, add metolazone 04/05 Urine output is picking up after initiating of Lasix, fluid balance -1500 negative patient remained hypoxic, BMP tomorrow Continue current management 04/06 Continue current management, feels significantly better, try to wean her off oxygen (3) Hypertension: Plan: -continue to hold lisinopril, home p.o. furosemide due to KEEGAN -BPs acceptable -amlodipine on hold -Will continue labetalol 03/27 Blood pressure is not controlled Resume amlodipine 10 mg daily Continue labetalol (4) Stage 3b chronic kidney disease: Plan: Severe iron deficiency anemia, hemoglobin dropped to 5.9, occult blood test is pending, status post transfusion of 1 unit of packed RBC, GI consult Transferrin saturation low quite low at 7% so also with iron deficiency-replace with IV Venofer 300 Mg daily x3 days no known blood loss follow CBC 04/04 Status post transfusion, hemoglobin today stable, pending GI consult which is not urgent especially given her hypoxia 04/05 Received IV iron, discontinue IV iron, iron level follow-up is within acceptable range, recheck with transferrin saturation tomorrow (5) Diabetes mellitus type 2, uncontrolled: Plan: - Patient's home regimen held on admission including dapagliflozin, NPH /30 - Continue BSG checks, sliding-scale insulin,Lantus, hypoglycemic protocol - Patient has not been checking her blood sugars at home and admits to not eating and drinking recently. - Hemoglobin A1C 7.2%-well controlled -ADA diet (6) Dyslipidemia: Plan: Continue statin (7) Hyperthyroidism: Plan: Continue Synthroid Admission and Anticipated Discharge Date Admission Date: March 28, 2022 Subjective Feels significantly better, creatinine is trending down, continue current management, try to wean her off oxygen Physical Exam Constitutional: WD/WN, vitals as above well developed and + morbidly obese; no acute distress and not in distress Eyes: PERRL, conjunctivae normal, anicteric sclerae + anicteric sclerae; no conjunctival abnormality (with watery discharge bilat) and no corneal abnormality ENMT: external ear and nose normal, oropharynx normal Nose: no external nose abnormality Mouth: no oral mucosal abnormality and oral mucous membranes not dry Neck: trachea midline, no thyromegaly normal visual inspection and trachea midline Respiratory: normal respiratory effort, lungs clear to auscultation normal respiratory effort, + cough (Occasional) and + tachypneic (With minimal exertion) Auscultation: lungs clear to auscultation bilaterally, + crackles (Bibasilar) and + wheezes (Bilateral expiratory); no rhonchi Cardiovascular: RRR, no murmur, no edema Rate/Rhythm: regular rate and regular rhythm Heart Sounds: normal S1 and normal S2; no murmur Extremities: + edema Chest (Breasts): Chest: normal inspection of chest Gastrointestinal (Abdomen): normal bowel sounds, soft, nontender, no hepatosplenomegaly Musculoskeletal: no cyanosis or clubbing, extremities motor strength 5/5 Extremities: extremities normal to inspection; no cyanosis and no clubbing Skin: no rashes, warm and dry normal turgor; no lesions Neurologic: patellar DTR's 2+ bilat, sensation intact and PERRL, EOMI, accommodation nl, no face palsy, no dysarthria moves all extremities and awake; no focal motor deficits and not confused Speech / Cognition: normal cognition Motor/Sensory: no tremor and no asterixis Psychiatric: A+Ox3, euthymic affect Orientation: alert and oriented x 3 Lymphatic: no lymphedema Results & Data Results & Data ([facility]) Vital Signs (Past 12 Hours) Vital Signs Temp Pulse Resp BP Pulse Ox O2 Del Method O2 Flow Rate 04/06/22 07:55 Nasal Cannula 3 04/06/22 08:17 36.8 C 77 18 151/81 H 95 Nasal Cannula 3 PG Care Time/CCT Total # of Minutes Spent Total Time Spent with Patient: Total time spent is greater than 50% in coordination of care (as documented) at patient's floor/unit and/or counseling patient: Coding Level of Care Code 78265 Subseq Hosp Care Lvl 3 Diagnoses Acute kidney injury superimposed on CKD N17.9; N18.9 SOB (shortness of breath) on exertion R06.02 Hypertension I10 Hypertension type: unspecified Stage 3b chronic kidney disease N18.32 Diabetes mellitus type 2, uncontrolled E11.65 Glycemic state: with hyperglycemia Dyslipidemia E78.5 Hyperthyroidism E05.90 (1) Diabetes mellitus type 2, uncontrolled Glycemic state: with hyperglycemia Qualified Code(s): E11.65 - Type 2 diabetes mellitus with hyperglycemia (2) Hypertension Hypertension type: unspecified Qualified Code(s): I10 - Essential (primary) hypertension
[2022-04-06] MEDS: hydrALAZINE TAB 50 MG TAB PO SCH (20:24)
[2022-04-07] MEDS: ACETAMINOPHEN 325 MG TAB PO PRN (02:50)
[2022-04-07] MEDS: POLYETHYLENE (MIRALAX) 17 GM PACK PO SCH (08:51)
[2022-04-07] MEDS: INSULIN ASPART PER UNIT SC SCH ×4 (08:55→20:51)
[2022-04-07] MEDS: HEPARIN SOD 5,000 UNIT/0.5 ML VIAL SQ SCH ×2 (08:55→20:33)
[2022-04-07] MEDS: LANTUS PER UNIT CHARGE SQ SCH ×2 (08:55→20:51)
[2022-04-07] MEDS: metOLazone 2.5 MG TABLET PO SCH (08:56)
[2022-04-07] MEDS: VENLAFAXINE HCL XR 150 MG CAPXR PO SCH (08:56)
[2022-04-07] MEDS: amLODIPine BESYLATE 5 MG TAB PO SCH (08:56)
[2022-04-07] MEDS: methIMAzole 5 MG TABLET PO SCH (08:56)
[2022-04-07] MEDS: CYANOCOBALAMIN (B-12) 500 MCG TABLET PO SCH (08:56)
[2022-04-07] MEDS: LABETALOL HCL 200 MG TAB PO SCH ×2 (08:56→20:34)
[2022-04-07] MEDS: hydrALAZINE TAB 50 MG TAB PO SCH ×3 (08:56→20:33)
[2022-04-07] MEDS: PANTOprazole 40 MG TAB PO SCH (08:56)
[2022-04-07] MEDS: FUROSEMIDE 40 MG/4 ML VIAL IV SCH ×2 (08:57→18:20)
[2022-04-07] MEDS: KETOROLAC 0.5% OP SOLN 5 ML BTL OPB SCH ×2 (08:57→20:34)
[2022-04-07] MEDS: ROSUVASTATIN CALCIUM 10 MG TAB PO SCH (08:57)
[2022-04-07 11:01] LABS: Hematocrit (blood only) 27.7 % (34.1-44.9); Hemoglobin 8.9 g/dl (12.0-16.0); Mean Corpuscular Hemoglobin 31.6 pg (25.0-34.0); Mean Corpuscular Hgb Conc 32.1 g/dL (32.0-36.0); Mean Corpuscular Volume 98.2 fL (80.0-100.0); Mean Platelet Volume 10.4 fL (9.4-12.3); Nucleated RBC # (auto) 0.02 K/uL (0-0); Nucleated RBC % (auto) 0.2 %; Platelet Count 344 K/uL (130-400); RDW Coefficient of Variation 14.8 % (11.5-14.5); RDW Standard Deviation 49.1 fL (36.4-46.3); Red Blood Count 2.82 M/uL (3.93-5.22)
--- NOTE | 2022-04-07 13:02 | Gastrointestinal Consultation ---
Date of Consultation April 07, 2022 Assessment & Plan (1) Anemia: Plan anemia: worsening, severe iron deficiency. no overt signs of GI bleeding at this time with normal recent colonoscopy. recs: --monitor for signs of overt GI bleeding --supportive care, trend H/H --will need EGD to further evaluate her anemia, can plan to do as an outpatient tentatively or if continues to worsen can do inpatient. Thank you for allowing me to participate in the care of this patient. History of Present Illness Attending Physician: Garland Conteh MD History of Present Illness 71 yo female here with KEEGAN on CKD. GI consulted for severe iron deficiency anemia. hgb noted to be 6.9 on 04/03, required transfusions, now currently at 8.9 slowly decreasing again. She feels well at this time and denies any hematochezia, hematemesis, nausea. Stool occult blood was negative. colonoscopy in 06/2021 done by me showed small internal hemorrhoids otherwise normal. CBC and CMP reviewed. Allergies Allergy/AdvReac Type Severity Reaction Status Date / Time No Known Drug Allergies Allergy Unknown Verified 03/28/22 20:43 Home Medications Medication Instructions Recorded Confirmed Type insulin human U-100 NPH-regulr 57 unit (0.57 mL) subcut BID #10 mL 01/16/21 03/28/22 Rx 70-30 mix 100 unit/mL subcutaneous susp (Novolin 70/30 U-100 Insulin) acetaminophen 500 mg tablet 1,000 mg PO Q6H PRN Pain 06/19/21 03/28/22 History amlodipine 10 mg tablet 10 mg PO QAM #90 tabs 10/16/21 03/28/22 Rx rosuvastatin 10 mg tablet 10 mg PO QAM #90 tabs 11/23/21 03/28/22 Rx calcitriol 0.25 mcg capsule 0.25 mcg PO 3XWK #36 caps 02/21/22 03/28/22 Rx furosemide 20 mg tablet 20 mg PO BID #180 tabs 02/26/22 03/28/22 Rx dapagliflozin 10 mg tablet 10 mg PO DAILY #90 tabs 03/06/22 03/28/22 Rx (Farxiga) labetalol 200 mg tablet 200 mg PO BID #180 tabs 03/06/22 03/28/22 Rx pantoprazole 40 mg tablet,delayed 40 mg PO QAM #90 tabs 03/09/22 03/28/22 Rx release lisinopril 40 mg tablet 40 mg PO QAM #90 tabs 03/15/22 03/28/22 Rx methimazole 10 mg tablet 10 mg PO QAM #90 tabs 03/15/22 03/28/22 Rx venlafaxine 150 mg 150 mg PO QAM #90 caps 03/15/22 03/28/22 Rx capsule,extended release 24 hr (Effexor XR) ketorolac 0.5 % eye drops 1 drp OPB BID 03/28/22 03/28/22 History sodium polystyrene sulfonate 30 g PO WK 03/28/22 03/28/22 History Patient History Medical History Acute kidney injury Anemia Arthritis Diabetes mellitus type 2, uncontrolled IDDM Diastolic CHF, acute on chronic Dyslipidemia GERD without esophagitis HNP (herniated nucleus pulposus), lumbar Hyperglycemia Hyperkalemia Hypertension Hyperthyroidism Hypoxia Major depressive disorder, recurrent severe without psychotic features Melanoma of nose Morbid obesity with BMI of 40.0-44.9, adult Nephrotic syndrome Recurrent UTI Stage 3b chronic kidney disease Vitamin D deficiency Volume overload Surgical History History of bilateral cataract extraction History of colonoscopy History of melanoma excision History of repair of left rotator cuff History of repair of right rotator cuff History of tooth extraction all teeth removed S/P cholecystectomy S/P tonsillectomy S/P tubal ligation Status post trigger finger release Family History Father Prostate cancer Diabetes Myocardial infarction Lung cancer Mother Diabetes Alzheimer disease Myocardial infarction Hypertension Brother COPD (chronic obstructive pulmonary disease) Other No family history of adverse response to anesthesia Denies family history of Ovarian cancer Breast cancer Colorectal cancer Social History Smoking Status: Never smoker Second Hand Exposure: No; Hx Alcohol Use: No Hx Substance Use: No Preferred Language: Senegalese Communication Ability: Effective Visual Impairment: No Limitations Hearing Ability: Normal 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 Beliefs That Will Affect Care: None marital status: Current Living Situation: Spouse current occupational status: retired current occupation: retired - worked at [employer] Other Information That Helps Us Care for You: No Feels Safe at Home: Yes Safety Concerns: Feels Safe At This Time Childhood Exposure to Second-Hand Smoke: No caffeine: Yes (Soda x 10 cans per day.) during the past year weight has: remained stable Dental Care, Regularly: No Physical Activity Frequency: Daily Physical Activity Frequency Comment: house chores Seatbelt Use: always Sunscreen Use: No Assistive Devices: None Review of Systems Constitutional: no fever, no chills and no weight loss Eyes: as per Subjective / HPI Ear, Nose, Mouth, Throat: as per Subjective / HPI Respiratory: no dyspnea and no dyspnea on exertion Cardiovascular: no chest pain and no palpitations Gastrointestinal: as per Subjective / HPI Musculoskeletal: no joint pain and no swelling Integumentary: no rash and no lesions Neurologic: no numbness and no paresthesia Psychiatric: no depression and no anxiety Endocrine: no fatigue Hematologic / Lymphatic: no easy bleeding and no easy bruising Physical Exam Constitutional: WD/WN, vitals as above Eyes: EOM intact bilaterally Neck: normal visual inspection Respiratory: normal respiratory effort, lungs clear to auscultation Cardiovascular: RRR, no murmur, no edema Gastrointestinal (Abdomen): Inspection/Auscultation: abdomen normal to inspection; abdomen not distended Percussion/Palpation: abdomen soft; abdomen nontender and no hepatosplenomegaly Musculoskeletal: Extremities: no cyanosis Gait: normal gait Skin: no rashes, warm and dry Neurologic: moves all extremities Psychiatric: A+Ox3, euthymic affect Results & Data ([facility]) Vital Signs (Past 12 Hours) Vital Signs Temp Pulse Resp BP Pulse Ox O2 Del Method O2 Flow Rate 04/07/22 09:00 Nasal Cannula 1 04/07/22 09:56 94 Nasal Cannula 2 04/07/22 07:28 36.9 C 74 16 146/64 H 93 Nasal Cannula 2 PG Care Time/CCT Total # of Minutes Spent Total Time Spent with Patient: Total time spent is greater than 50% in coordination of care (as documented) at patient's floor/unit and/or counseling patient: Coding Level of Care Code 52786 Initial Inpt Care Lvl 3 Diagnoses Anemia D64.9
--- NOTE | 2022-04-07 18:34 | Hospitalist Progress Note ---
Date of Service April 07, 2022 Assessment & Plan (1) Acute kidney injury superimposed on CKD: Plan: elsi has a h/o CKD stage 3b with baseline creatinine of 1.2-1.3, though recently has been in the 1.5-1.7 range. Cr on admission was 3.14 with a BUN of 72. Patient most likely has a KEEGAN on CKD most likely secondary to poor appetite, nonketotic hyperglycemia hospital diuresis, diuretics (furosemide,), lisinopril Renal US negative Patient started the patient on IV fluid, creatinine improved to 2.7, patient had non-anion gap metabolic acidosis, more awake she had hyponatremia and hyperkalemia and received bicarb drip and reports has been resolved Creatinine continues to drop today creatinine 2.04 Evidence of volume overload, tachypnea orthopnea and acute hypoxia developed today, initiated on Lasix 40 mg IV twice daily -Continue sodium bicarbonate 1300 Mg p.o. twice daily -continue to hold nephrotoxic meds and hold home Farxiga, lisinopril Continue Serrano catheter due to renal failure, significant urinary incontinence 04/03 Discontinue Serrano catheter Urine culture positive for E. coli pansensitive, patient completed course of treatment with Rocephin Discontinue Rocephin Creatinine is trending up Monitor blood nephrology -KEEGAN most likely secondary to ATN due to UTI and dehydration Chronic kidney disease Baseline creatinine is 1.6-1.9 Hold IVORY and SGLT2 inhibitors in the setting of KEEGAN 04/04 Creatinine is trending up, patient could be intravascularly depleted but overall volume overload Discussed with nephrology add low-dose of metolazone 2.5 mg daily BMP tomorrow 04/05 Creatinine is trending down slightly, possible cardiorenal syndrome, continue current treatment, continue Lasix as well as metolazone BMP tomorrow 04/06 Creatinine trending down, continue current management, BMP tomorrow, no urine output recorded despite I talked to the nurses multiple times 04/07 Creatinine is continued trending down today is 2.3 baseline creatinine is around 2, repeat BMP tomorrow (2) SOB (shortness of breath) on exertion: Plan: Secondary to volume overload from acute kidney injury with isotonic fluids being given for several days Chest x-ray with pulmonary edema on 03/30 -Started on Lasix 40 mg twice daily -ANDERSON's not accurately documented -Echocardiogram revealed preserved ejection fraction no significant valvular disease , concentric left mild concentric left ventricular hypertrophy, no comment right ventricular, no comment on diastolic dysfunction, no significant valvular disease -We will ask for pulmonary consult 04/04 Remains hypoxic with no improvement, appreciate pulmonary consult, add metolazone 04/05 Urine output is picking up after initiating of Lasix, fluid balance -1500 negative patient remained hypoxic, BMP tomorrow Continue current management 04/06 Continue current management, feels significantly better, try to wean her off oxygen 04/07 Patient feels better, currently is much less oxygen, continue current treatment, with Lasix 40 mg twice daily and metolazone (3) Hypertension: Plan: -continue to hold lisinopril, home p.o. furosemide due to KEEGAN -BPs acceptable -amlodipine on hold -Will continue labetalol 03/27 Blood pressure is not controlled Resume amlodipine 10 mg daily Continue labetalol 04/07 Blood pressure much better controlled with the current regimen (4) Leukocytosis: Plan: Persistent leukocytosis the initial impression was this is secondary to UTI due to E. coli however still patient has leukocytosis repeat the UA (5) Stage 3b chronic kidney disease: Plan: Severe iron deficiency anemia, hemoglobin dropped to 5.9, occult blood test is pending, status post transfusion of 1 unit of packed RBC, GI consult Transferrin saturation low quite low at 7% so also with iron deficiency-replace with IV Venofer 300 Mg daily x3 days no known blood loss follow CBC 04/04 Status post transfusion, hemoglobin today stable, pending GI consult which is not urgent especially given her hypoxia 04/05 Received IV iron, discontinue IV iron, iron level follow-up is within acceptable range, recheck with transferrin saturation tomorrow (6) Diabetes mellitus type 2, uncontrolled: Plan: - Patient's home regimen held on admission including dapagliflozin, NPH 70/30 - Continue BSG checks, sliding-scale insulin,Lantus, hypoglycemic protocol - Patient has not been checking her blood sugars at home and admits to not eating and drinking recently. - Hemoglobin A1C 7.2%-well controlled -ADA diet (7) Dyslipidemia: Plan: Continue statin (8) Hyperthyroidism: Plan: Continue Synthroid Admission and Anticipated Discharge Date Admission Date: March 28, 2022 Subjective Feels significantly better, creatinine is trending down, continue current management, try to wean her off oxygen Physical Exam Constitutional: WD/WN, vitals as above well developed and + morbidly obese; no acute distress and not in distress Eyes: PERRL, conjunctivae normal, anicteric sclerae + anicteric sclerae; no conjunctival abnormality (with watery discharge bilat) and no corneal abnormality ENMT: external ear and nose normal, oropharynx normal Nose: no external nose abnormality Mouth: no oral mucosal abnormality and oral mucous membranes not dry Neck: trachea midline, no thyromegaly normal visual inspection and trachea midline Respiratory: normal respiratory effort, lungs clear to auscultation normal respiratory effort, + cough (Occasional) and + tachypneic (With minimal exertion) Auscultation: lungs clear to auscultation bilaterally, + crackles (Bibasilar) and + wheezes (Bilateral expiratory); no rhonchi Cardiovascular: RRR, no murmur, no edema Rate/Rhythm: regular rate and regular rhythm Heart Sounds: normal S1 and normal S2; no murmur Extremities: + edema Chest (Breasts): Chest: normal inspection of chest Gastrointestinal (Abdomen): normal bowel sounds, soft, nontender, no hepatosplenomegaly Musculoskeletal: no cyanosis or clubbing, extremities motor strength 5/5 Extremities: extremities normal to inspection; no cyanosis and no clubbing Skin: no rashes, warm and dry normal turgor; no lesions Neurologic: patellar DTR's 2+ bilat, sensation intact and PERRL, EOMI, accommodation nl, no face palsy, no dysarthria moves all extremities and awake; no focal motor deficits and not confused Speech / Cognition: normal cognition Motor/Sensory: no tremor and no asterixis Psychiatric: A+Ox3, euthymic affect Orientation: alert and oriented x 3 Lymphatic: no lymphedema Results & Data Results & Data ([facility]) Vital Signs (Past 12 Hours) Vital Signs Temp Pulse Resp BP Pulse Ox O2 Del Method O2 Flow Rate 04/07/22 16:04 36.6 C 69 18 127/63 92 Nasal Cannula 2 04/07/22 09:00 Nasal Cannula 1 04/07/22 09:56 94 Nasal Cannula 2 04/07/22 07:28 36.9 C 74 16 146/64 H 93 Nasal Cannula 2 PG Care Time/CCT Total # of Minutes Spent Total Time Spent with Patient: Total time spent is greater than 50% in coordination of care (as documented) at patient's floor/unit and/or counseling patient: Coding Level of Care Code 38591 Subseq Hosp Care Lvl 3 Diagnoses Acute kidney injury superimposed on CKD N17.9; N18.9 SOB (shortness of breath) on exertion R06.02 Hypertension I10 Hypertension type: unspecified Leukocytosis D72.829 Stage 3b chronic kidney disease N18.32 Diabetes mellitus type 2, uncontrolled E11.65 Glycemic state: with hyperglycemia Dyslipidemia E78.5 Hyperthyroidism E05.90 (1) Hypertension Hypertension type: unspecified Qualified Code(s): I10 - Essential (primary) hypertension (2) Diabetes mellitus type 2, uncontrolled Glycemic state: with hyperglycemia Qualified Code(s): E11.65 - Type 2 diabetes mellitus with hyperglycemia
[2022-04-08 03:14] LABS: Appearance Urine Cloudy (Clear); Bacteria Urine Automated Negative (Negative); Bilirubin Urine Negative (Negative); Blood Urine Negative (Negative); Color Urine Yellow; Epithelial Cell Urine Auto >30 /lpf (0-5); Glucose Urine UA Negative (Negative); Ketones Urine Negative (Negative); Leukocyte Esterase Urine Negative (Negative); Nitrite Urine Negative (Negative); Protein Urine 1+ (Negative); RBC Urine Automated 0-4 /hpf (0-4); Specific Gravity Urine 1.011 (1.000-1.030); Urobilinogen Urine Negative (Negative)
[2022-04-08 05:44] LABS: Hematocrit (blood only) 26.9 % (34.1-44.9); Hemoglobin 8.9 g/dl (12.0-16.0); Mean Corpuscular Hemoglobin 31.9 pg (25.0-34.0); Mean Corpuscular Hgb Conc 33.1 g/dL (32.0-36.0); Mean Corpuscular Volume 96.4 fL (80.0-100.0); Mean Platelet Volume 10.5 fL (9.4-12.3); Platelet Count 352 K/uL (130-400); RDW Coefficient of Variation 15.4 % (11.5-14.5); RDW Standard Deviation 49.5 fL (36.4-46.3); Red Blood Count 2.79 M/uL (3.93-5.22); White Blood Count 12.91 K/ul (4.8-10.8)
[2022-04-08 06:19] LABS: BUN Creatinine Ratio 28.6 (10-20); Calcium 8.2 mg/dl (8.5-10.1); Est GFR (African American) 19.7 ml/min; Potassium 3.4 mmol/L (3.5-5.1)
[2022-04-08] MEDS: hydrALAZINE TAB 50 MG TAB PO SCH ×3 (08:22→21:10)
[2022-04-08] MEDS: methIMAzole 5 MG TABLET PO SCH (08:22)
[2022-04-08] MEDS: CYANOCOBALAMIN (B-12) 500 MCG TABLET PO SCH (08:22)
[2022-04-08] MEDS: LABETALOL HCL 200 MG TAB PO SCH ×2 (08:22→21:10)
[2022-04-08] MEDS: VENLAFAXINE HCL XR 150 MG CAPXR PO SCH (08:22)
[2022-04-08] MEDS: metOLazone 2.5 MG TABLET PO SCH (08:22)
[2022-04-08] MEDS: amLODIPine BESYLATE 5 MG TAB PO SCH (08:22)
[2022-04-08] MEDS: PANTOprazole 40 MG TAB PO SCH (08:22)
[2022-04-08] MEDS: ROSUVASTATIN CALCIUM 10 MG TAB PO SCH (08:22)
[2022-04-08] MEDS: FUROSEMIDE 40 MG/4 ML VIAL IV SCH ×2 (08:23→17:50)
[2022-04-08] MEDS: HEPARIN SOD 5,000 UNIT/0.5 ML VIAL SQ SCH ×2 (08:23→21:11)
[2022-04-08] MEDS: KETOROLAC 0.5% OP SOLN 5 ML BTL OPB SCH ×2 (08:24→21:11)
[2022-04-08] MEDS: POLYETHYLENE (MIRALAX) 17 GM PACK PO SCH (08:25)
[2022-04-08] MEDS: LANTUS PER UNIT CHARGE SQ SCH ×2 (09:45→21:22)
[2022-04-08] MEDS: INSULIN ASPART PER UNIT SC SCH ×4 (09:46→21:21)
--- NOTE | 2022-04-08 17:43 | Hospitalist Progress Note ---
Date of Service April 08, 2022 Assessment & Plan (1) SOB (shortness of breath) on exertion: Plan: Secondary to volume overload from acute kidney injury with isotonic fluids being given for several days Chest x-ray with pulmonary edema on 03/30 which was not the case and x-ray done upon admission on 03/28 -Started on Lasix 40 mg twice daily -ANDERSON's not accurately documented -Echocardiogram revealed preserved ejection fraction no significant valvular disease , concentric left mild concentric left ventricular hypertrophy, no comment right ventricular, no comment on diastolic dysfunction, no significant valvular disease -We will ask for pulmonary consult 04/04 Remains hypoxic with no improvement, appreciate pulmonary consult, add metolazone 04/05 Urine output is picking up after initiating of Lasix, fluid balance -1500 negative patient remained hypoxic, BMP tomorrow Continue current management 04/06 Continue current management, feels significantly better, try to wean her off oxygen 04/07 Patient feels better, currently is much less oxygen, continue current treatment, with Lasix 40 mg twice daily and metolazone 04/08 Still patient needs slight amount of oxygen, proceed with chest x-ray, possible discharge tomorrow (2) Acute kidney injury superimposed on CKD: Plan: [facility] has a h/o CKD stage 3b with baseline creatinine of 1.2-1.3, though recently has been in the 1.5-1.7 range. Cr on admission was 3.14 with a BUN of 72. Patient most likely has a KEEGAN on CKD most likely secondary to poor appetite, nonketotic hyperglycemia hospital diuresis, diuretics (furosemide,), lisinopril Renal US negative Patient started the patient on IV fluid, creatinine improved to 2.7, patient had non-anion gap metabolic acidosis, more awake she had hyponatremia and hyperkalemia and received bicarb drip and reports has been resolved Creatinine continues to drop today creatinine 2.04 Evidence of volume overload, tachypnea orthopnea and acute hypoxia developed today, initiated on Lasix 40 mg IV twice daily -Continue sodium bicarbonate 1300 Mg p.o. twice daily -continue to hold nephrotoxic meds and hold home Farxiga, lisinopril Continue Serrano catheter due to renal failure, significant urinary incontinence 04/03 Discontinue Serrano catheter Urine culture positive for E. coli pansensitive, patient completed course of treatment with Rocephin Discontinue Rocephin Creatinine is trending up Monitor blood nephrology -KEEGAN most likely secondary to ATN due to UTI and dehydration Chronic kidney disease Baseline creatinine is 1.6-1.9 Hold IVORY and SGLT2 inhibitors in the setting of KEEGAN 04/04 Creatinine is trending up, patient could be intravascularly depleted but overall volume overload Discussed with nephrology add low-dose of metolazone 2.5 mg daily BMP tomorrow 04/05 Creatinine is trending down slightly, possible cardiorenal syndrome, continue current treatment, continue Lasix as well as metolazone BMP tomorrow 04/06 Creatinine trending down, continue current management, BMP tomorrow, no urine output recorded despite I talked to the nurses multiple times 04/07 Creatinine is continued trending down today is 2.3 baseline creatinine is around 2, repeat BMP tomorrow 04/08 Today creatinine is trending down slightly, stop IV Lasix, switch to oral Lasix, BMP tomorrow, proceed with chest x-ray to follow-up (3) Iron deficiency anemia: Plan: Severe iron deficiency anemia, hemoglobin dropped to 5.9, status post transfusion of 1 unit of packed RBC, GI consult Transferrin saturation low quite low at 7% so also with iron deficiency-replace with IV Venofer 300 Mg daily x3 days no known blood loss follow CBC 04/04 Status post transfusion, hemoglobin today stable, pending GI consult which is not urgent especially given her hypoxia 04/05 Received IV iron, discontinue IV iron, iron level follow-up is within acceptable range, recheck with transferrin saturation tomorrow 04/08 Hemoglobin stable around 9, needs outpatient work-up EGD/colonoscopy (4) Hypertension: Plan: -continue to hold lisinopril, home p.o. furosemide due to KEEGAN -BPs acceptable -amlodipine on hold -Will continue labetalol 03/27 Blood pressure is not controlled Resume amlodipine 10 mg daily Continue labetalol 04/07 Blood pressure much better controlled with the current regimen 04/08 The blood pressure is controlled with the current regimen (5) Leukocytosis: Plan: Etiology is unclear, persistent leukocytosis the initial impression was this is secondary to UTI due to E. coli however still patient has leukocytosis, follow- up with UA showed urine is clear (6) Stage 3b chronic kidney disease: (7) Diabetes mellitus type 2, uncontrolled: Plan: - Patient's home regimen held on admission including dapagliflozin, NPH 70/30 - Continue BSG checks, sliding-scale insulin,Lantus, hypoglycemic protocol - Patient has not been checking her blood sugars at home and admits to not eating and drinking recently. - Hemoglobin A1C 7.2%-well controlled -ADA diet (8) Dyslipidemia: Plan: Continue statin (9) Hyperthyroidism: Plan: Continue Synthroid Admission and Anticipated Discharge Date Admission Date: March 28, 2022 Subjective Feels significantly better today, however her urine output is trending down, creatinine is trending up, stop IV Lasix, switch to oral Lasix, patient can be discharged, waiting for placement Physical Exam Constitutional: WD/WN, vitals as above well developed and + morbidly obese; no acute distress and not in distress Eyes: PERRL, conjunctivae normal, anicteric sclerae + anicteric sclerae; no conjunctival abnormality (with watery discharge bilat) and no corneal abnormality ENMT: external ear and nose normal, oropharynx normal Nose: no external nose abnormality Mouth: no oral mucosal abnormality and oral mucous membranes not dry Neck: trachea midline, no thyromegaly normal visual inspection and trachea midline Respiratory: normal respiratory effort, lungs clear to auscultation normal respiratory effort, + cough (Occasional) and + tachypneic (With minimal exertion) Auscultation: lungs clear to auscultation bilaterally, + crackles (Bibasilar) and + wheezes (Bilateral expiratory); no rhonchi Cardiovascular: RRR, no murmur, no edema Rate/Rhythm: regular rate and regular rhythm Heart Sounds: normal S1 and normal S2; no murmur Extremities: + edema Chest (Breasts): Chest: normal inspection of chest Gastrointestinal (Abdomen): normal bowel sounds, soft, nontender, no hepatosplenomegaly Musculoskeletal: no cyanosis or clubbing, extremities motor strength 5/5 Extremities: extremities normal to inspection; no cyanosis and no clubbing Skin: no rashes, warm and dry normal turgor; no lesions Neurologic: patellar DTR's 2+ bilat, sensation intact and PERRL, EOMI, accommodation nl, no face palsy, no dysarthria moves all extremities and awake; no focal motor deficits and not confused Speech / Cognition: normal cognition Motor/Sensory: no tremor and no asterixis Psychiatric: A+Ox3, euthymic affect Orientation: alert and oriented x 3 Lymphatic: no lymphedema Results & Data Results & Data ([facility]) Vital Signs (Past 12 Hours) Vital Signs Temp Pulse Pulse Resp BP Pulse Ox O2 Del Method 04/08/22 15:29 36.6 C 67 18 127/61 94 Nasal Cannula 04/08/22 08:06 36.8 C 77 18 139/67 94 Nasal Cannula 04/08/22 07:55 Nasal Cannula O2 Flow Rate 04/08/22 15:29 1 04/08/22 08:06 1 04/08/22 07:55 0.5 PG Care Time/CCT Total # of Minutes Spent Total Time Spent with Patient: Total time spent is greater than 50% in coordination of care (as documented) at patient's floor/unit and/or counseling patient: Coding Level of Care Code 64129 Subseq Hosp Care Lvl 3 Diagnoses SOB (shortness of breath) on exertion R06.02 Acute kidney injury superimposed on CKD N17.9; N18.9 Iron deficiency anemia D50.9 Hypertension I10 Hypertension type: unspecified Leukocytosis D72.829 Stage 3b chronic kidney disease N18.32 Diabetes mellitus type 2, uncontrolled E11.65 Glycemic state: with hyperglycemia Dyslipidemia E78.5 Hyperthyroidism E05.90 (1) Hypertension Hypertension type: unspecified Qualified Code(s): I10 - Essential (primary) hypertension (2) Diabetes mellitus type 2, uncontrolled Glycemic state: with hyperglycemia Qualified Code(s): E11.65 - Type 2 diabetes mellitus with hyperglycemia
--- NOTE | 2022-04-08 18:51 | XRay Report ---
XR chest 1V portable HISTORY: Shortness of breath. follow up on pulmonary edema COMPARISON: Chest 04/05/2022. FINDINGS: No pneumothorax. No pleural effusions. The cardiac silhouette remains mildly enlarged. Slig ht improvement in the interstitial and alveolar airspace opacities. IMPRESSION: Slight improvement in the interstitial and alveolar airspace opacities likely representing a resolvin g pulmonary edema. ACT 112: Negative or not required by law. Electronically signed by: Malcom Su M.D. 04/08/2022 6:48 PM
[2022-04-09] MEDS: HEPARIN SOD 5,000 UNIT/0.5 ML VIAL SQ SCH (08:26)
[2022-04-09] MEDS: hydrALAZINE TAB 50 MG TAB PO SCH ×2 (08:28→14:53)
[2022-04-09] MEDS: POLYETHYLENE (MIRALAX) 17 GM PACK PO SCH (08:28)
[2022-04-09] MEDS: LABETALOL HCL 200 MG TAB PO SCH (08:28)
[2022-04-09] MEDS: VENLAFAXINE HCL XR 150 MG CAPXR PO SCH (08:28)
[2022-04-09] MEDS: CALCITRIOL 0.25 MCG CAPSULE PO SCH (08:29)
[2022-04-09] MEDS: ROSUVASTATIN CALCIUM 10 MG TAB PO SCH (08:30)
[2022-04-09] MEDS: methIMAzole 5 MG TABLET PO SCH (08:30)
[2022-04-09] MEDS: amLODIPine BESYLATE 5 MG TAB PO SCH (08:30)
[2022-04-09] MEDS: PANTOprazole 40 MG TAB PO SCH (08:31)
[2022-04-09] MEDS: CYANOCOBALAMIN (B-12) 500 MCG TABLET PO SCH (08:31)
[2022-04-09] MEDS: metOLazone 2.5 MG TABLET PO SCH (08:31)
[2022-04-09] MEDS: INSULIN ASPART PER UNIT SC SCH ×2 (08:56→13:04)
[2022-04-09] MEDS: LANTUS PER UNIT CHARGE SQ SCH (08:57)
[2022-04-09] MEDS ORDERED: FUROSEMIDE 40 MG TAB PO SCH (09:00)
[2022-04-09] MEDS: KETOROLAC 0.5% OP SOLN 5 ML BTL OPB SCH (09:03)
--- NOTE | 2022-04-09 14:51 | Discharge Summary ---
Date of Service April 09, 2022 Admission HPI Per Admitting Provider Patient is a 71 y/o female with PMHx of CKD, GERD, HTN, DM2, hyperthyroidism, and depression presenting to the hospital today due to being referred from her PCP. She has been having SOB on exertion for the past 2 weeks. She also states that she has not been eating or drinking much lately as well as being fatigued. She also has some sinus congestion and very mild sore throat. She denies any cough, N/V, diarrhea, CP, or ab pain. She has been somewhat depressed due to the passing of her daughter many years ago that happened around the holidays. Denies any SI or plan. Denies any LE edema, or calf tenderness. Denies any falls or injuries. In the ED: vitals stable, CXR showed cardiomegaly w/o acute chest disease, head CT negative, creatinine 3.14 (baseline 1.5-1.7), BUN of 72. Hyperkalemia with a K of 5.7 given some bicarbonate, dextrose and insulin, and calcium in ED, Mild anemia today at 9.2 but denies any active bleeding, negative flu and covid, renal US pending and UA pending. Admission Exam Per Admitting Provider Constitutional: WD/WN, vitals as above Eyes: PERRL, conjunctivae normal, anicteric sclerae ENMT: external ear and nose normal, oropharynx normal Respiratory: normal respiratory effort, lungs clear to auscultation Cardiovascular: RRR, no murmur, no edema Gastrointestinal (Abdomen): normal bowel sounds, soft, nontender, no hepatosplenomegaly Musculoskeletal: no cyanosis or clubbing, extremities motor strength 5/5 Skin: no rashes, warm and dry Neurologic: patellar DTR's 2+ bilat, sensation intact Psychiatric: A+Ox3, euthymic affect Principal Diagnosis Acute on chronic renal failure. Fatigue. Weakness Discharge Exam GENERAL : No acute distress EYES: No icterus, gaze conjugate NOSE: No evidence of epistaxis MOUTH: No lesions or candidiasis NECK: Supple LUNGS: CTA B/L, no wheezes, rales or rhonchi HEART: Regular, rate controlled ABDOMEN: Soft, NT, ND, BS Present EXTREMITIES: No LE edema, pedal pulses intact NEURO: A&OX3. No focal deficits. Patient ambulating the [facility] Discharge Data Allergies Allergy/AdvReac Type Severity Reaction Status Date / Time No Known Drug Allergies Allergy Unknown Verified 03/28/22 20:43 Consultations 03/28/22 20:20 ED Decision to Admit Stat 03/30/22 10:17 Consult Nephrology Routine 04/03/22 20:35 Consult Pulmonology Routine 04/03/22 20:43 Consult Gastroenterology Routine Ordered Studies 03/28/22 18:40 CT head/brain wo con Stat Impression: No acute intracranial hemorrhage, no evidence of acute territorial infarction or other acute intracranial disease process. 03/28/22 19:23 US renal/blad retro comp Urgent IMPRESSION: No renal calculi or hydronephrosis. 04/02/22 12:05 CT chest diagnostic wo con Routine IMPRESSION: 1. Interstitial pulmonary edema. Airspace opacities throughout the lungs which likely reflect alveolar pulmonary edema. A superimposed infectious process could appear similar but is considered less likely. Small bilateral pleural effusions. 2. Moderate cardiomegaly and coronary calcification. 3. Possible tracheobronchomalacia, suboptimally assessed on this exam due to respiratory motion. 4. Mildly enlarged mediastinal lymph nodes which may be related to pulmonary edema Chest x-ray 04/08/2022 18:47 IMPRESSION: Slight improvement in the interstitial and alveolar airspace opacities likely representing a resolving pulmonary edema. Hospital Course (1) SOB (shortness of breath) on exertion: Attending: Dr. Bardales Impression: 71-year-old female with complicated past medical history including chronic kidney disease, nephrotic syndrome, iron deficiency seen in media, secondary hyperparathyroidism, recurrent UTI, diabetes mellitus 2 poorly controlled, diabetic nephropathy, hypertension, dyslipidemia, major depressive disorder, morbid obesity with a BMI of 49.4 kg/m, chronic fatigue and malaise. Patient admitted 03/28/2022. Most likely multifactorial. We will continue patient on 2 L of supplemental oxygen per minute with activity. Patient has not required supplemental oxygen at rest. CXR with improvement of pulmonary edema CT Chest with interstitial edema and small bilateral pleural effusions Patient responded to diuretics Echocardiogram on 03/29/2022 with Sinus rhythm with PACs, No change when compared to previous EKG. Preserved ejection fraction no significant valvular disease , concentric left mild concentric left ventricular hypertrophy, no comment right ventricular, no comment on diastolic dysfunction, no significant valvular disease Pulmonary consulted and recommended continued diuresis and aggressive incentive spirometry Lifelong non-smoker Continue efforts for exercise tolerance and weight loss (2) Acute kidney injury superimposed on CKD: Creatinine has corrected to baseline Follows with Dr. Paige in the outpatient clinic Continue with judicious diuretics Hyperkalemic on admission. Responded to patiromer K+ today is 3.4 Continue outpatient management (3) Iron deficiency anemia: Severe iron deficiency anemia, Hemoglobin dropped to 5.9, status post transfusion of 1 unit of packed RBC No overt bleeding with recent normal colonoscopy GI consulted and suggests outpatient EGD Transferrin saturation low quite low at 7% so also with iron deficiency-replaced with IV Venofer 300 Mg daily x3 days Hgb stable at 8.9 Continue pantoprazole Monitor labs (4) Fatigue: Multifactorial Continue weight loss attempts Inpatient rehab to improve function and exercise tolerance Continue to treat iron deficiency HgB stable at 8.9 (5) Hypertension: Lisinopril held for acute on chronic kidney failure Start hydralazine PO TID Continue with amlodipine, labetolol, and diuretics Echo with preserved LVEF and no significant structural disorder (6) Leukocytosis: Unclear etiology No evidence of infection WBC currently 12.9 Follow outpatient (7) Stage 3b chronic kidney disease: See above. Follows with Dr. Paige Positive for nephrotic syndrome (8) Hyperthyroidism: (9) Diabetes mellitus type 2, uncontrolled: Continue insulin and regular BSGs HA1C is 7.2% Continue outpatient management (10) Diastolic CHF, acute on chronic: Diuretics increased Discharge on Furosemide 40mg PO BID and Metolazone 2.5mg daily CXR with improvement to pulmonary edema Echo with Preserved LVEF Continue volume management (11) Dyslipidemia: Continue Rosuvastatin Plan Patient referred to [facility]. She is cleared medically to go there today. We are awaiting transportation and other arrangements. Case management is coordinating Total Time Total Time Spent Total Time Spent (In Minutes): 45 Discharge Plan Discharge Items Patient Disposition: Transfer Inpatient Rehab Fac Reason For Visit: KEEGAN ON CKD Discharge Diagnosis: 1. KEEGAN on CKD 2. Profound weakness 3. Hypoxia Activity: As commented below Activity Comment: Per therapy plan at [facility] Lifting: Gradually increase as tolerated Bathing: No limitations Exercise/Sports: Gradually increase as tolerated Weightbearing: Full weightbearing Non-emergency contact: Primary Care Provider Call non-emergency contact if: you have any medication questions, your symptoms worsen and you have a fever Follow-up/Referrals: Ramirez Villela CRNP [Primary Care Provider] - 04/20/22 8:30 am (APPT WITH ALEX SHELTON PA-C) Diet: Carb Consistent or DM2 and Low Sodium (2gm) Addtl Attending Provider Instructions: You were admitted for acute kidney failure and shortness of breath and weakness. Your creatinine is now back to baseline but we have increased your diuretics and discontinued your Lisinopril and started you on hydralazine. You should follow up with your primary care physician when you are discharge from rehabilitation. You should also be sure to follow up with Dr. Paige to manage medications and your kidney function. You will be sent to rehab with oxygen with a nasal cannula at 2 L/min and should continue to use your incentive spirometer to improve your breathing. Hopefully this can be weaned off with exercise and continued breathing exercises. You should be out of bed as often ass possible and increase activity as tolerated to help with your breathing. Pending Studies at Discharge: No Stand-Alone Forms: My [facility] Skilled Items Patient informed of condition?: Yes DNR: No Discharge Level of Care: Acute rehab Communicable Disease: No Discharge Prognosis: Improving Lines: None Urinary Catheter: No Medications and DC Order Prescriptions: New hydralazine 50 mg Tablet 50 mg PO TID Qty: 90 0RF furosemide 40 mg Tablet 40 mg PO [id number] Qty: 60 0RF metolazone 2.5 mg Tablet 2.5 mg PO QAM Qty: 30 0RF cyanocobalamin (vitamin B-12) 500 mcg Tablet 1,000 mcg PO QAM Qty: 60 0RF Continued Novolin 70/30 U-100 Insulin 100 unit/mL (70-30) suspension 57 unit SQ BID Qty: 10 3RF amlodipine 10 mg tablet 10 mg PO QAM Qty: 90 1RF rosuvastatin 10 mg tablet 10 mg PO QAM Qty: 90 1RF calcitriol 0.25 mcg capsule 0.25 mcg PO 3XWK Qty: 36 3RF Rx Instructions: Saturday, Saturday, Saturday in the morning pantoprazole 40 mg tablet,delayed release (DR/EC) 40 mg PO QAM Qty: 90 1RF venlafaxine [Effexor XR] 150 mg capsule,extended release 24hr 150 mg PO QAM Qty: 90 1RF methimazole 10 mg tablet 10 mg PO QAM Qty: 90 1RF labetalol 200 mg tablet 200 mg PO BID Qty: 180 3RF Farxiga 10 mg tablet 10 mg PO DAILY Qty: 90 3RF acetaminophen 500 mg Tablet 1,000 mg PO Q6H PRN (Reason: Pain) ketorolac 0.5 % drops 1 drp OPB BID sodium polystyrene sulfonate Powder 30 g PO WK Rx Instructions: once a week Discontinued furosemide 20 mg tablet 20 mg PO BID Qty: 180 3RF lisinopril 40 mg tablet 40 mg PO QAM Qty: 90 1RF Discharge Orders: Discharge Order (Routine); Ordered 04/09/22 Ordered By: Arnulfo Moody/Other Patient Handouts: Diabetes and Heart Disease, Diabetes and Kidney Disease Admission Data Admit Date/Time: 03/28/22 21:11 Attending Provider: Raghav Cooper Admit Provider: Bryan Garcia Primary Care Provider: Ramirez Villela Other Providers: Bryan Garcia ; Blair Prieto ; Nelida Hernández ; [facility] ; [facility] ; Michael Roman ; Mary Downs Other Interventions: Discharge Summary Assessment (RN) Last Done: 04/09/22 14:35 Supervising Physician Co-Signing Physician Notes I personally examined the patient and verified all alfaro points of history and exam, discussed case, and agree with decision making with Akash Villatoro PAC Feeling better breathing better Vitals noted, in general she is awake and alert pleasant no distress. Breathing unlabored no accessory muscle use good effort. Skin shows no rashes no pallor or icterus. Pulmonary edemaimproved. Safe/stable for rehab, otherwise as above Coding Level of Care Code HOSP INP/OBS DISCH >30 MIN Diagnoses SOB (shortness of breath) on exertion R06.02 Acute kidney injury superimposed on CKD N17.9; N18.9 Iron deficiency anemia D50.9 Fatigue R53.83 Fatigue type: unspecified Hypertension I10 Hypertension type: unspecified Leukocytosis D72.829 Stage 3b chronic kidney disease N18.32 Hyperthyroidism E05.90 Diabetes mellitus type 2, uncontrolled E11.65 Glycemic state: with hyperglycemia Diastolic CHF, acute on chronic I50.33 Dyslipidemia E78.5
[2022-04-12 04:40] LABS: ANCA Screen Negative (Negative); Anti Nuclear Antibody Screen NEGATIVE (NEGATIVE); Anti-Glom Basement Antibody <1.0 AI (<1.0); Myeloperoxidase Ab <1.0 AI (<1.0); Proteinase-3 AB <1.0 AI (<1.0)
== END 2022-04-09 15:15 | DRG 682 ==
LOC: ED 17:42 → SUATTDRO 21:11 → 3N 21:11

== ENCOUNTER 2022-04-21 10:25 | Inpatient (IN) ==
[2022-04-21] MEDS ORDERED: ALBUT/IPRATROP 3MG/0.5MG NEB 3 ML VIAL NEB STA (10:55)
--- NOTE | 2022-04-21 11:06 | Emergency Department Note ---
Impression & Plan Hypoxia, Anemia, CHF (congestive heart failure), SOB (shortness of breath) ED Provider Note NAME: CRISS LEGGETT AGE: 71 SEX: F : 1950 ARRIVES VIA: Ambulance INFORMANT: [Patient][nursing, EMS] ED PROVIDER(S): [Arnulfo Young MD] CHIEF COMPLAINT: Shortness of breath HISTORY OF PRESENT ILLNESS: The patient is a 71-year-old female who was discharged from our hospital on the second of this month, 12 days ago. The patient went to [facility]. She was discharged from [facility] about 2 days ago. The day after discharge, the patient began to feel short of breath. Things worsened into today. She feels quite weak. She was not discharged with O2 supplementation. She has no oxygen to use at home. She denies any diagnosed lung disease although she carries a history of CHF, anemia and renal disease. As per EMS, the patient's O2 saturation was low at 88%. They gave a DuoNeb and placed her on oxygen. She was notably wheezing as per our nursing staff. The patient denies increased cough, fever or chills. She does not have chest pain. Her dyspnea is present all the time but much worse with any exertion. PMHx/PSHx: See Below SOCIAL HISTORY: See Below. PHYSICAL EXAM: GENERAL: Patient is in no acute distress. HEENT: No acute trauma, normocephalic atraumatic, mucous membranes moist, no nasal congestion. NECK: No stridor, no adenopathy, no meningismus, trachea is midline. LUNGS: There is an increased respiratory rate with wheezing bilaterally, breath sounds are diminished bilaterally. HEART: Without murmurs gallops or rubs, regular rate and rhythm. ABDOMEN: Soft, nontender, bowel sounds positive, no peritonitis. EXTREMITIES: No cyanosis, moderate bilateral pedal edema, full range of motion of all the joints without pain or difficulty, no signs for acute trauma. NEUROLOGIC: Oriented x 3, no acute motor or sensory deficits, no focal weakness. SKIN: No rash, no jaundice, no diaphoresis. Pale. DIFFERENTIAL DIAGNOSIS: Reactive airway disease, pneumonia, RSV, COVID-19, influenza, pneumothorax, COPD, CHF, infection, cardiac ischemia, anemia, pulmonary embolism, bronchitis, as well as other pathologies. EMERGENCY DEPARTMENT COURSE/PROCEDURES: Prior/Outside records reviewed: Previous discharge summary. EMS records. ECG per my interpretation: Indication was shortness of breath. The ECG shows some baseline artifact but the rhythm appears to be normal sinus. There is a rate of 79. There is no ST elevation, no PVCs. The QTC is 456. Continuous Cardiac Monitoring per my interpretation: An order was placed for continuous cardiac monitoring. The monitor shows a rate of 77 with normal sinus rhythm. Critical Care Note: I have personally spent 39 minutes of critical care time in the direct management of this patient. This includes bedside care, interpretation of diagnostic studies, and testing, discussion with consultants, patient, and family members, and other required patient management activities. This 39 minutes is in excess of all separately billable procedures. MEDICAL DECISION MAKING: There is no leukocytosis. The patient is anemic but this appears baseline looking back at previous testing. Platelet count is slightly elevated. No coagulopathy. The patient does have renal insufficiency but this is baseline looking back at previous testing. No electrolyte abnormality in need of emergent correction. No concerning liver enzyme elevation. TSH was slightly elevated, the T4 is pending. BNP was elevated consistent with fluid overload. Chest x-ray does show findings of heart failure. ECG shows what appears to be a normal sinus rhythm. No obvious ST elevation. Cardiac enzyme testing x1 is not consistent with acute cardiac injury. Urinalysis does not show infection. COVID, influenza and RSV test were negative. The patient has a known history of heart failure. She just was recently in our hospital and [facility]. She has been home for a few days. She appears to be back in heart failure, she presents hypoxic. She requires O2 supplementation to maintain her saturations above 90%. The patient received IV Ativan for some anxiety. She received IV Lasix to help with diuresis. She was given a DuoNeb. She was given oral Tylenol for a headache. The patient is currently resting comfortably. She will require a hospital stay for diuresis and further care. I did speak with the patient and case management, the on-call hospitalist was consulted. I spoke to the patient's daughter who was at bedside. DISPOSITION: The patient's findings and presentation warrant a hospital stay. Past Med/Surg History Medical History Acute kidney injury Anemia Arthritis Diabetes mellitus type 2, uncontrolled IDDM Diastolic CHF, acute on chronic Dyslipidemia GERD without esophagitis HNP (herniated nucleus pulposus), lumbar Hyperglycemia Hyperkalemia Hypertension Hyperthyroidism Hypoxia Major depressive disorder, recurrent severe without psychotic features Melanoma of nose Morbid obesity with BMI of 40.0-44.9, adult Nephrotic syndrome Recurrent UTI Stage 3b chronic kidney disease Vitamin D deficiency Volume overload Surgical History History of bilateral cataract extraction History of colonoscopy History of melanoma excision History of repair of left rotator cuff History of repair of right rotator cuff History of tooth extraction all teeth removed S/P cholecystectomy S/P tonsillectomy S/P tubal ligation Status post trigger finger release Family History Father Prostate cancer Diabetes Myocardial infarction Lung cancer Mother Diabetes Alzheimer disease Myocardial infarction Hypertension Brother COPD (chronic obstructive pulmonary disease) Other No family history of adverse response to anesthesia Denies family history of Ovarian cancer Breast cancer Colorectal cancer Social History Smoking Status: Never smoker Second Hand Exposure: No; Hx Alcohol Use: No Hx Substance Use: No Preferred Language: Turkish Communication Ability: Effective Visual Impairment: No Limitations Hearing Ability: Normal 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 Observer Required: No Beliefs That Will Affect Care: None marital status: Current Living Situation: Spouse current occupational status: retired current occupation: retired - worked at [employer] Feels Safe at Home: Yes Childhood Exposure to Second-Hand Smoke: No caffeine: Yes (Soda x 10 cans per day.) during the past year weight has: remained stable Dental Care, Regularly: No Physical Activity Frequency: Daily Physical Activity Frequency Comment: house chores Seatbelt Use: always Sunscreen Use: No Assistive Devices: None Allergies Allergies Allergy/AdvReac Type Severity Reaction Status Date / Time No Known Drug Allergies Allergy Unknown Verified 03/28/22 20:43 Home Meds Home Medications Medication Instructions Recorded Confirmed acetaminophen 500 mg tablet 1,000 mg PO Q6H PRN Pain 06/19/21 04/21/22 ketorolac 0.5 % eye drops 1 drp OPB BID 03/28/22 04/21/22 sodium polystyrene sulfonate 30 g PO WK 03/28/22 04/21/22 Previous Rx's Medication Instructions Recorded insulin human U-100 NPH-regulr 57 unit (0.57 mL) subcut BID #10 mL 01/16/21 70-30 mix 100 unit/mL subcutaneous susp (Novolin 70/30 U-100 Insulin) rosuvastatin 10 mg tablet 10 mg PO QAM #90 tabs 11/23/21 calcitriol 0.25 mcg capsule 0.25 mcg PO 3XWK #36 caps 02/21/22 dapagliflozin 10 mg tablet 10 mg PO DAILY #90 tabs 03/06/22 (Farxiga) labetalol 200 mg tablet 200 mg PO BID #180 tabs 03/06/22 pantoprazole 40 mg tablet,delayed 40 mg PO QAM #90 tabs 03/09/22 release methimazole 10 mg tablet 10 mg PO QAM #90 tabs 03/15/22 venlafaxine 150 mg 150 mg PO QAM #90 caps 03/15/22 capsule,extended release 24 hr (Effexor XR) cyanocobalamin (vitamin B-12) 500 1,000 mcg PO QAM #60 tabs 04/09/22 mcg tablet furosemide 40 mg tablet 40 mg PO BID17 #60 tabs 04/09/22 hydralazine 50 mg tablet 50 mg PO TID #90 tabs 04/09/22 metolazone 2.5 mg tablet 2.5 mg PO QAM #30 tabs 04/09/22 amlodipine 10 mg tablet 10 mg PO QAM #90 tabs 04/16/22 blood sugar diagnostic (Blood #100 ea 04/20/22 Glucose Test strips) blood-glucose meter (Blood Glucose #1 ea 04/20/22 Monitoring kit) lancets 33 gauge (BD Ultra Fine #100 ea 04/20/22 Lancets) Results & Data (ED) Vital Signs Vital Signs - 24 hr 04/21/22 10:39 04/21/22 10:43 04/21/22 10:43 Temperature 35.6 C L Temperature Source Oral Pulse Rate 77 Pulse Rate [Apical] Respiratory Rate 28 H Respiratory Effort / Characteristics Spontaneous Short of Breath Labored Short of Breath Respiratory Pattern Blood Pressure 138/70 Blood Pressure [Right Arm] Blood Pressure Mean 92 Blood Pressure Mean [Right Arm] Blood Pressure Position Lying Pulse Oximetry 97 97 Oxygen Delivery Method Nasal Cannula Nasal Cannula Oxygen Flow Rate 2 Sepsis Recent Fever Within 48 Hours No Sepsis New/Unexplained Change in Mental Status No Sepsis Action Taken by Nursing No Action Required 04/21/22 10:55 04/21/22 11:25 04/21/22 12:13 Temperature Temperature Source Pulse Rate Pulse Rate [Apical] 71 71 Respiratory Rate 24 22 Respiratory Effort / Characteristics Respiratory Pattern Tachypnea Blood Pressure Blood Pressure [Right Arm] 129/59 L 103/81 Blood Pressure Mean Blood Pressure Mean [Right Arm] 82 88 Blood Pressure Position Pulse Oximetry 97 100 97 Oxygen Delivery Method Nasal Cannula Nebulizer Nasal Cannula Oxygen Flow Rate 2 2 Sepsis Recent Fever Within 48 Hours Sepsis New/Unexplained Change in Mental Status Sepsis Action Taken by Shelter Medications Current Medication List: was personally reviewed by me Laboratory Data Attestation: I reviewed the patient's lab results. 04/21/22 11:10 04/21/22 11:10 Lab Results 04/21/22 04/21/22 04/21/22 Range/Units 11:10 11:10 11:10 WBC 8.14 (4.8-10.8) K/ul RBC 3.15 L (3.93-5.22) M/uL Hgb 10.0 L (12.0-16.0) g/dl Hct 31.8 L (34.1-44.9) % MCV 101.0 H (80.0-100.0) fL MCH 31.7 (25.0-34.0) pg MCHC 31.4 L (32.0-36.0) g/dL RDW Std Deviation 56.2 H (36.4-46.3) fL RDW Coeff of Emil 15.3 H (11.5-14.5) % Plt Count 433 H (130-400) K/uL MPV 11.1 (9.4-12.3) fL Immature Gran % (Auto) 0.5 % Neut % (Auto) 84.3 % Lymph % (Auto) 10.1 % Parker % (Auto) 3.9 % Eos % (Auto) 0.5 % Baso % (Auto) 0.7 % Neut # (Auto) 6.86 H (1.4-6.5) K/uL Lymph # (Auto) 0.82 L (1.2-3.4) K/uL Parker # (Auto) 0.32 (0.24-0.82) K/uL Eos # (Auto) 0.04 (0-0.50) K/uL Baso # (Auto) 0.06 (0-0.2) K/uL Immature Gran # (Auto) 0.04 H (0.00-0.02) K/uL PT 11.2 (9.0-12.0) Seconds INR 1.1 (0.9-1.1) APTT 23.4 (21.0-31.0) Seconds PTT Ratio 0.9 Sodium 141 (136-145) mmol/L Potassium 5.4 H (3.5-5.1) mmol/L Chloride 105 (98-107) mmol/L Carbon Dioxide 25 (21-32) mmol/L Anion Gap 11 (3-11) BUN 71 H (6-23) mg/dl Creatinine 2.22 H (0.6-1.2) mg/dl Est Cr Clr Drug Dosing 25.8 ml/min Est GFR ( Amer) 24.9 ml/min Est GFR (Non-Af Amer) 21.4 ml/min BUN/Creatinine Ratio 32.0 H (10-20) Glucose 93 (70-99(Fasting)) mg/dl Calcium 9.8 (8.5-10.1) mg/dl Magnesium 2.4 (1.7-2.4) mg/dl Total Bilirubin 0.5 (0.2-1.0) mg/dl AST 14 (13-39) U/L ALT 11 (7-52) U/L Alkaline Phosphatase 83 (34-104) U/L Troponin I High Sens 13.2 (0-14) pg/ml B-Natriuretic Peptide (0-100) pg/ml Total Protein 8.2 (6.0-8.3) gm/dl Albumin 3.8 (3.4-5.0) gm/dl Globulin 4.4 H (2.5-4.0) gm/dl Albumin/Globulin Ratio 0.9 (0.9-2) Procalcitonin (0-0.5) ng/ml TSH (0.300-4.500) uIu/ml Urine Color Urine Appearance (Clear) Urine pH (4.5-7.5) Ur Specific [place] (1.000-1.030) Urine Protein (Negative) Urine Glucose (UA) (Negative) Urine Ketones (Negative) Urine Blood (Negative) Urine Nitrite (Negative) Urine Bilirubin (Negative) Urine Urobilinogen (Negative) Ur Leukocyte Esterase (Negative) Urine WBC (Auto) (0-5) /hpf Urine RBC (Auto) (0-4) /hpf U Hyaline Cast (Auto) (0-5) /lpf U Epithel Cells (Auto) (0-5) /lpf Urine Bacteria (Auto) (Negative) Urine Yeast (None Prsent) SARS-CoV-2 (PCR) (Negative) Influenza Type A (PCR) (Neg) Influenza Type B (PCR) (Neg) RSV (RT-PCR) (Neg) 04/21/22 04/21/22 04/21/22 Range/Units 11:10 11:10 11:10 WBC (4.8-10.8) K/ul RBC (3.93-5.22) M/uL Hgb (12.0-16.0) g/dl Hct (34.1-44.9) % MCV (80.0-100.0) fL MCH (25.0-34.0) pg MCHC (32.0-36.0) g/dL RDW Std Deviation (36.4-46.3) fL RDW Coeff of Emil (11.5-14.5) % Plt Count (130-400) K/uL MPV (9.4-12.3) fL Immature Gran % (Auto) % Neut % (Auto) % Lymph % (Auto) % Parker % (Auto) % Eos % (Auto) % Baso % (Auto) % Neut # (Auto) (1.4-6.5) K/uL Lymph # (Auto) (1.2-3.4) K/uL Parker # (Auto) (0.24-0.82) K/uL Eos # (Auto) (0-0.50) K/uL Baso # (Auto) (0-0.2) K/uL Immature Gran # (Auto) (0.00-0.02) K/uL PT (9.0-12.0) Seconds INR (0.9-1.1) APTT (21.0-31.0) Seconds PTT Ratio Sodium (136-145) mmol/L Potassium (3.5-5.1) mmol/L Chloride (98-107) mmol/L Carbon Dioxide (21-32) mmol/L Anion Gap (3-11) BUN (6-23) mg/dl Creatinine (0.6-1.2) mg/dl Est Cr Clr Drug Dosing ml/min Est GFR ( Amer) ml/min Est GFR (Non-Af Amer) ml/min BUN/Creatinine Ratio (10-20) Glucose (70-99(Fasting)) mg/dl Calcium (8.5-10.1) mg/dl Magnesium (1.7-2.4) mg/dl Total Bilirubin (0.2-1.0) mg/dl AST (13-39) U/L ALT (7-52) U/L Alkaline Phosphatase (34-104) U/L Troponin I High Sens (0-14) pg/ml B-Natriuretic Peptide 800 H (0-100) pg/ml Total Protein (6.0-8.3) gm/dl Albumin (3.4-5.0) gm/dl Globulin (2.5-4.0) gm/dl Albumin/Globulin Ratio (0.9-2) Procalcitonin < 0.05 (0-0.5) ng/ml TSH (0.300-4.500) uIu/ml Urine Color Urine Appearance (Clear) Urine pH (4.5-7.5) Ur Specific [place] (1.000-1.030) Urine Protein (Negative) Urine Glucose (UA) (Negative) Urine Ketones (Negative) Urine Blood (Negative) Urine Nitrite (Negative) Urine Bilirubin (Negative) Urine Urobilinogen (Negative) Ur Leukocyte Esterase (Negative) Urine WBC (Auto) (0-5) /hpf Urine RBC (Auto) (0-4) /hpf U Hyaline Cast (Auto) (0-5) /lpf U Epithel Cells (Auto) (0-5) /lpf Urine Bacteria (Auto) (Negative) Urine Yeast (None Prsent) SARS-CoV-2 (PCR) NEGATIVE (Negative) Influenza Type A (PCR) Negative (Neg) Influenza Type B (PCR) Negative (Neg) RSV (RT-PCR) Negative (Neg) 04/21/22 04/21/22 Range/Units 11:10 11:42 WBC (4.8-10.8) K/ul RBC (3.93-5.22) M/uL Hgb (12.0-16.0) g/dl Hct (34.1-44.9) % MCV (80.0-100.0) fL MCH (25.0-34.0) pg MCHC (32.0-36.0) g/dL RDW Std Deviation (36.4-46.3) fL RDW Coeff of Emil (11.5-14.5) % Plt Count (130-400) K/uL MPV (9.4-12.3) fL Immature Gran % (Auto) % Neut % (Auto) % Lymph % (Auto) % Parker % (Auto) % Eos % (Auto) % Baso % (Auto) % Neut # (Auto) (1.4-6.5) K/uL Lymph # (Auto) (1.2-3.4) K/uL Parker # (Auto) (0.24-0.82) K/uL Eos # (Auto) (0-0.50) K/uL Baso # (Auto) (0-0.2) K/uL Immature Gran # (Auto) (0.00-0.02) K/uL PT (9.0-12.0) Seconds INR (0.9-1.1) APTT (21.0-31.0) Seconds PTT Ratio Sodium (136-145) mmol/L Potassium (3.5-5.1) mmol/L Chloride (98-107) mmol/L Carbon Dioxide (21-32) mmol/L Anion Gap (3-11) BUN (6-23) mg/dl Creatinine (0.6-1.2) mg/dl Est Cr Clr Drug Dosing ml/min Est GFR ( Amer) ml/min Est GFR (Non-Af Amer) ml/min BUN/Creatinine Ratio (10-20) Glucose (70-99(Fasting)) mg/dl Calcium (8.5-10.1) mg/dl Magnesium (1.7-2.4) mg/dl Total Bilirubin (0.2-1.0) mg/dl AST (13-39) U/L ALT (7-52) U/L Alkaline Phosphatase (34-104) U/L Troponin I High Sens (0-14) pg/ml B-Natriuretic Peptide (0-100) pg/ml Total Protein (6.0-8.3) gm/dl Albumin (3.4-5.0) gm/dl Globulin (2.5-4.0) gm/dl Albumin/Globulin Ratio (0.9-2) Procalcitonin (0-0.5) ng/ml TSH 6.343 H (0.300-4.500) uIu/ml Urine Color Yellow Urine Appearance Clear (Clear) Urine pH 5.0 (4.5-7.5) Ur Specific [place] 1.016 (1.000-1.030) Urine Protein 2+ H (Negative) Urine Glucose (UA) Negative (Negative) Urine Ketones Trace H (Negative) Urine Blood Negative (Negative) Urine Nitrite Negative (Negative) Urine Bilirubin Negative (Negative) Urine Urobilinogen Negative (Negative) Ur Leukocyte Esterase Negative (Negative) Urine WBC (Auto) 1-5 (0-5) /hpf Urine RBC (Auto) 0-4 (0-4) /hpf U Hyaline Cast (Auto) 1-5 (0-5) /lpf U Epithel Cells (Auto) 10-20 H (0-5) /lpf Urine Bacteria (Auto) Negative (Negative) Urine Yeast Present A (None Prsent) SARS-CoV-2 (PCR) (Negative) Influenza Type A (PCR) (Neg) Influenza Type B (PCR) (Neg) RSV (RT-PCR) (Neg) Administered Medications Albuterol (Albut/Ipratrop 3mg/0.5mg Neb 3 Ml Vial) 3 ml NEB QIDR [facility]; Protocol Stop: 05/21/22 14:59 Last Admin: 04/21/22 15:46 Dose: 3 ml Documented By: NMS Amlodipine Besylate (Amlodipine Besylate 5 Mg Tab) 10 mg PO QAM [facility] Stop: 05/21/22 14:25 Last Admin: 04/21/22 15:44 Dose: 10 mg Documented By: NMS Heparin Sodium (Porcine) (Heparin Sod 5,000 Unit/0.5 Ml Vial) 7,500 units SQ Q8 [facility] Stop: 05/21/22 14:59 Last Admin: 04/21/22 15:42 Dose: 7,500 units Documented By: NMS Hydralazine HCl (Hydralazine Tab 50 Mg Tab) 50 mg PO TID [facility] Stop: 05/21/22 15:14 Last Admin: 04/21/22 15:41 Dose: 50 mg Documented By: NMS Methimazole (Methimazole 5 Mg Tablet) 10 mg PO [facility] Stop: 05/21/22 15:14 Last Admin: 04/21/22 15:43 Dose: 10 mg Documented By: NMS Venlafaxine HCl (Venlafaxine Hcl Xr 150 Mg Capxr) 150 mg PO [facility] Stop: 05/21/22 15:14 Last Admin: 04/21/22 15:43 Dose: 150 mg Documented By: NMS Discontinued Medications Acetaminophen (Acetaminophen 500 Mg Tab) 1,000 mg PO NOW STA Stop: 04/21/22 11:30 Last Admin: 04/21/22 11:46 Dose: 1,000 mg Documented By: NMS Albuterol (Albut/Ipratrop 3mg/0.5mg Neb 3 Ml Vial) 3 ml NEB NOW STA; Protocol Stop: 04/21/22 10:56 Last Admin: 04/21/22 11:14 Dose: 3 ml Documented By: NMS Furosemide (Furosemide 40 Mg/4 Ml Vial) 60 mg IV NOW STA Stop: 04/21/22 11:10 Last Admin: 04/21/22 11:46 Dose: 60 mg Documented By: NMS Lorazepam (Lorazepam 2 Mg/1 Ml Vial) 0.5 mg IV NOW STA Stop: 04/21/22 11:30 Last Admin: 04/21/22 11:46 Dose: 0.5 mg Documented By: NMS Metolazone (Metolazone 2.5 Mg Tablet) 2.5 mg PO NOW ONE Stop: 04/21/22 13:40 Last Admin: 04/21/22 14:04 Dose: 2.5 mg Documented By: OAM Sodium Zirconium Cyclosilicate (Sodium Zirconium Cyclosilicate 10 Gm Packet) 10 gm PO ONCE ONE Stop: 04/21/22 13:15 Last Admin: 04/21/22 13:25 Dose: Not Given Documented By: NMS Imaging Data Radiologist's Impression: Chest X-Ray 04/21/22 10:55 XR chest 1V portable CLINICAL HISTORY: Dyspnea TECHNIQUE: Single frontal radiograph of the chest was obtained. Comparison: Comparison is made to chest radiograph 04/08/2022 FINDINGS: No lines and tubes are seen. Cardiomegaly is noted. The aortic arch is calcified. Multifocal airspace opacities are stable to minimally improved from prior exam. Prominence of the vasculature is noted. No evidence of pleural effusion or pneumothorax. IMPRESSION: Cardiomegaly is seen. Multifocal airspace opacities are stable to minimally improved from prior exam and may represent multifocal pneumonia, likely with superimposed pulmonary edema. ACT 112: Negative or not required by law. Electronically signed by: Clarke Bernstein M.D. 04/21/2022 11:14 AM Discharge Plan Visit Data Chief Complaint: Shortness of Breath/Dyspnea ED Provider: Arnulfo Young Discharge Problem: Hypoxia, Anemia, CHF (congestive heart failure), SOB (shortness of breath) Patient Disposition: Admitted As Inpatient Condition: Fair Discharge Instructions Interventions: ED Discharge Assessment Last Done: 04/21/22 14:27
[2022-04-21] MEDS ORDERED: FUROSEMIDE 40 MG/4 ML VIAL IV STA (11:09)
--- NOTE | 2022-04-21 11:17 | XRay Report ---
XR chest 1V portable CLINICAL HISTORY: Dyspnea TECHNIQUE: Single frontal radiograph of the chest was obtained. Comparison: Comparison is made to chest radiograph 04/08/2022 FINDINGS: No lines and tubes are seen. Cardiomegaly is noted. The aortic arch is calcified. Multifocal airspace opacities are stable to minimally improved from prior exam. Prominence of the vasculature is noted. No evidence of pleural effusion or pneumothorax. IMPRESSION: Cardiomegaly is seen. Multifocal airspace opacities are stable to minimally improved from prior exam and may represent multifocal pneumonia, likely with superimposed pulmonary edema. ACT 112: Negative or not required by law. Electronically signed by: Clarke Bernstein M.D. 04/21/2022 11:14 AM
[2022-04-21 11:21] LABS: Basophils # (auto) 0.06 K/uL (0-0.2); Basophils % (auto) 0.7 %; Eosinophils # (auto) 0.04 K/uL (0-0.50); Eosinophils % (auto) 0.5 %; Hematocrit (blood only) 31.8 % (34.1-44.9); Immature Granulocytes # (auto) 0.04 K/uL (0.00-0.02); Immature Granulocytes % (auto) 0.5 %; Lymphocytes # (auto) 0.82 K/uL (1.2-3.4); Lymphocytes % (auto) 10.1 %; Mean Corpuscular Hemoglobin 31.7 pg (25.0-34.0); Mean Corpuscular Hgb Conc 31.4 g/dL (32.0-36.0); Mean Platelet Volume 11.1 fL (9.4-12.3); Monocytes # (auto) 0.32 K/uL (0.24-0.82); Monocytes % (auto) 3.9 %; Neutrophils # (auto) 6.86 K/uL (1.4-6.5); Neutrophils % (auto) 84.3 %; Platelet Count 433 K/uL (130-400); RDW Coefficient of Variation 15.3 % (11.5-14.5); RDW Standard Deviation 56.2 fL (36.4-46.3); Red Blood Count 3.15 M/uL (3.93-5.22); White Blood Count 8.14 K/ul (4.8-10.8)
[2022-04-21] MEDS ORDERED: ACETAMINOPHEN 500 MG TAB PO STA (11:29)
[2022-04-21] MEDS ORDERED: LORazepam 2 MG/1 ML VIAL IV STA (11:29)
[2022-04-21 11:44] LABS: Albumin Globulin Ratio 0.9 (0.9-2); Albumin Level 3.8 gm/dl (3.4-5.0); Bilirubin,Total 0.5 mg/dl (0.2-1.0); Calcium 9.8 mg/dl (8.5-10.1); Creatinine Clr Calc Pharmacy 25.8 ml/min; Est GFR (African American) 24.9 ml/min; Est GFR (Non-African American) 21.4 ml/min; Globulin 4.4 gm/dl (2.5-4.0); Magnesium 2.4 mg/dl (1.7-2.4); Potassium 5.4 mmol/L (3.5-5.1); Total Protein 8.2 gm/dl (6.0-8.3)
[2022-04-21 11:45] LABS: INR 1.1 (0.9-1.1); Partial Thromboplastin Ratio 0.9; Partial Thromboplastin Time 23.4 Seconds (21.0-31.0); Prothrombin Time 11.2 Seconds (9.0-12.0)
[2022-04-21 11:49] LABS: Troponin I High Sensitivity 13.2 pg/ml (0-14)
--- NOTE | 2022-04-21 12:19 | History & Physical Report ---
Date of Service April 21, 2022 Assessment & Plan (1) Acute respiratory failure with hypoxia: Plan: -Admit to med/tele -Patient is currently afebrile, hemodynamically stable and stable on 2L NC -Patient was just discharged from [facility] on 04/09/22 for diastolic chf exacerbation, was discharged with an increased dose of lasix and started on metolazone, however, these were stopped at [facility] due to concerns for her CKD -Patient presented today with SOB and found to be in CHF exacerbation again, pulm edema noted on CXR, BNP increased compared to last admission -S/P 60 mg IV lasix in the ED -Procal obtained on admission is < 0.05, will hold abx at this time -Continue aggressive pulm hygiene, prn duonebs, prn O2 -Will continue her on 40 mg IV lasix BID and 2.5 mg PO metolazone daily like her last admission to get her back to her baseline volume status -Continue with conn cath for now and monitor intake/output and daily weights -Her weight on last discharge (04/09/22) was 110 kg, currently at 113kg today -Monitor renal function and electrolytes on am BMP (2) Iron deficiency anemia: Plan: -Hgb stable today at 10.0, no recent signs of GI bleed per the patient and family -Continue B12, monitor am Hgb (3) Diastolic CHF, acute on chronic: Plan: -See acute hypoxic respiratory failure (4) Hyperkalemia: Plan: -Noted to be 5.4 today, no acute ECG changes -S/P 60 mg IV lasix in the ED -Patient has chronic hyperkalemia and is normally on 30 mg PO Kayexalate weekly -Was hyperkalemic last admission and responded well to Veltassa per the DC summary -Will repeat another potassium now and monitor, if not improved will restart her on Veltassa (5) CKD (chronic kidney disease) stage 3, GFR 30-59 ml/min: Plan: -Cr currently at 2.2, improved compared to her discharge on 04/08 at 2.69 -Per the last nephrology note on last admission her baseline cr is around 1.9 -Continue calcitriol -Monitor daily am renal function and electrolytes with BMP (6) Hypertension: Plan: -Stable -Continue amlodipine, labetalol, hydralazine and diuretics (7) Diabetes mellitus type 2, uncontrolled: Plan: -Monitor BSG ACHS, goal is 11-140 -Will start 5 units lantus BID, correction factor of 40 with carb ratio of 13 -DMII -Adjust regimen as needed (8) Dyslipidemia: Plan: -Conitnue statin (9) Hyperthyroidism: Plan: -Will FU with TSH obtained on admission -Continue methimazole for now (10) Major depressive disorder, recurrent severe without psychotic features: Plan: -Continue venlafaxine Plan The patient was discussed with Dr. Sams at the time of the exam History of Present Illness Chief Complaint: SOB Primary Care Provider: LISA Calle Elida is a 71 year old female with a PMH significant for CKD, nephrotic syndrome, GERD, HTN, diastolic CHF,dyslipidemia, DM2, hyperthyroidism, and depression who presented to the [facility] ED on 04/21/22 with a chief complaint of SOB. In the ED the patient was found to be afebrile, hemodynamically stable, but hypoxic in the 80's on RA. Labs were remarkable for a WBC WNL, stable Hgb, thrombocytosis of 433, absolute neutrophil count of 6.86, cr of 2.22 (baseline was reported as 1.9 per nephrology), potassium of 5.4, otherwise stable electrolytes, LFTs WNL, initial high sensitivity trop of 13.2, BNP of 800 (up from 675 as of 04/03/22), covid/influenza/rsv negative, Chest xray was read as "Cardiomegaly is seen. Multifocal airspace opacities are stable to minimally improved from prior exam and may represent multifocal pneumonia, likely with superimposed pulmonary edema.". Prior to admission the patient was placed on 2L NC and remained stable, she was also given a DuoNeb treatment, 60 mg IV lasix, 0.5 mg IV Ativan, and 1gm of PO tylenol. Per chart review, the patient was recently admitted to [facility] from 03/28/22- 04/09/22 for acute hypoxic respiratory failure, severe iron deficiency anemia with a hgb of 5.9, acute on chronic kidney disease. Her acute hypoxic respiratory failure was thought to be multifactorial including possible diastolic CHF and obesity. The patient had a TTE obtained on 03/29/22 which showed a preserved ejection fractions and no significant valvular disease, it did not comment on her diastolic function. She responded well to diuretics, pulmonary was consulted during the admission and recommended continued diuretics and aggressive pulmonary hygiene. She was placed on 2L with exertion but was not discharged with O2. She was also noted to be discharged on 40 mg of lasix BID and 2.5 mg PO metolazone daily. She was evaluated by Nephrology for her KEEGAN on CKD, it was thought to be be due to ATN due to dehydration and continued Lisinopril use. Her kidney function fell back to baseline while holding her lisinopril, diuresis, and 1 unit PRBCs. Her lisnopril was discontinued and she was started on TID hydralazine along with with amlodipine, labetalol and diuretics. Her anemia was thought to be mainly due to severe iron deficiency anemia. She was found to have a hgb of 5.9 and she was noted to have a transferrin saturation of 7%. She was treated with 1 units PRBCs and was given 3 doses of 300 mg IV Venofer during her admission and her hgb remained stable. She was evaluated by GI during her admission who recommended outpatient EGD for further workup. At the time of the exam the patient was sleeping comfortably in bed with her daughter sitting bedside, history was obtained from both. The patient was just discharged from [facility] on 04/19/22 after being discharged from [facility] on 04/09/22. Her daughter felt as though the patient was discharged too early. The patient lives at home with her who has his own health issues and is not able to assist her much at all. They state that since being home the patient has continued to have increased SOB at rest and with exertion. She denies recent fever or chills and chest pain. She has been experiencing a non-productive cough. She denies recent abdominal pain, nausea, vomiting, diarrhea, dysuria, hematuria, and recent falls. She was not discharged on home O2 and has been taking her lasix and metolazone as prescribed on last discharge. At the time of the exam the patient is currently stable on 2L NC. I spoke with the patient and her daughter regarding code status, she is a full code. She wishes for her and daughter to make decisions for her if she could not make them herself. Per review of the discharge paperwork from [facility], the [facility] med rec instructed her to STOP taking the lasix and metolazone but did not explain why. Attempted to call [facility] to speak with their care team, they were busy and did not call back at the time of the admission. Please refer to Dr. Sams's attestation for any changes to the treatment plan. Allergies Allergy/AdvReac Type Severity Reaction Status Date / Time No Known Drug Allergies Allergy Unknown Verified 03/28/22 20:43 Home Medications Medication Instructions Recorded Confirmed Type insulin human U-100 NPH-regulr 57 unit (0.57 mL) subcut BID #10 mL 01/16/21 04/21/22 Rx 70-30 mix 100 unit/mL subcutaneous susp (Novolin 70/30 U-100 Insulin) acetaminophen 500 mg tablet 1,000 mg PO Q6H PRN Pain 06/19/21 04/21/22 History rosuvastatin 10 mg tablet 10 mg PO QAM #90 tabs 11/23/21 04/21/22 Rx calcitriol 0.25 mcg capsule 0.25 mcg PO 3XWK #36 caps 02/21/22 04/21/22 Rx dapagliflozin 10 mg tablet 10 mg PO DAILY #90 tabs 03/06/22 04/21/22 Rx (Farxiga) labetalol 200 mg tablet 200 mg PO BID #180 tabs 03/06/22 04/21/22 Rx pantoprazole 40 mg tablet,delayed 40 mg PO QAM #90 tabs 03/09/22 04/21/22 Rx release methimazole 10 mg tablet 10 mg PO QAM #90 tabs 03/15/22 04/21/22 Rx venlafaxine 150 mg 150 mg PO QAM #90 caps 03/15/22 04/21/22 Rx capsule,extended release 24 hr (Effexor XR) ketorolac 0.5 % eye drops 1 drp OPB BID 03/28/22 04/21/22 History sodium polystyrene sulfonate 30 g PO WK 03/28/22 04/21/22 History cyanocobalamin (vitamin B-12) 500 1,000 mcg PO QAM #60 tabs 04/09/22 04/21/22 Rx mcg tablet furosemide 40 mg tablet 40 mg PO BID17 #60 tabs 04/09/22 04/21/22 Rx hydralazine 50 mg tablet 50 mg PO TID #90 tabs 04/09/22 04/21/22 Rx metolazone 2.5 mg tablet 2.5 mg PO QAM #30 tabs 04/09/22 04/21/22 Rx amlodipine 10 mg tablet 10 mg PO QAM #90 tabs 04/16/22 04/21/22 Rx blood sugar diagnostic (Blood #100 ea 04/20/22 04/21/22 Rx Glucose Test strips) blood-glucose meter (Blood Glucose #1 ea 04/20/22 04/21/22 Rx Monitoring kit) lancets 33 gauge (BD Ultra Fine #100 ea 04/20/22 04/21/22 Rx Lancets) Past Med/Surg History Medical History Acute kidney injury Anemia Arthritis Diabetes mellitus type 2, uncontrolled IDDM Diastolic CHF, acute on chronic Dyslipidemia GERD without esophagitis HNP (herniated nucleus pulposus), lumbar Hyperglycemia Hyperkalemia Hypertension Hyperthyroidism Hypoxia Major depressive disorder, recurrent severe without psychotic features Melanoma of nose Morbid obesity with BMI of 40.0-44.9, adult Nephrotic syndrome Recurrent UTI Stage 3b chronic kidney disease Vitamin D deficiency Volume overload Surgical History History of bilateral cataract extraction History of colonoscopy History of melanoma excision History of repair of left rotator cuff History of repair of right rotator cuff History of tooth extraction all teeth removed S/P cholecystectomy S/P tonsillectomy S/P tubal ligation Status post trigger finger release Family History Father Prostate cancer Diabetes Myocardial infarction Lung cancer Mother Diabetes Alzheimer disease Myocardial infarction Hypertension Brother COPD (chronic obstructive pulmonary disease) Other No family history of adverse response to anesthesia Denies family history of Ovarian cancer Breast cancer Colorectal cancer Social History Smoking Status: Never smoker Second Hand Exposure: No; Hx Alcohol Use: No Hx Substance Use: No Preferred Language: Nepalese Communication Ability: Effective Visual Impairment: No Limitations Hearing Ability: Normal 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 Beliefs That Will Affect Care: None marital status: Current Living Situation: Spouse current occupational status: retired current occupation: retired - worked at [employer] Feels Safe at Home: Yes Safety Concerns: Feels Safe At This Time Childhood Exposure to Second-Hand Smoke: No caffeine: Yes (Soda x 10 cans per day.) during the past year weight has: remained stable Dental Care, Regularly: No Physical Activity Frequency: Daily Physical Activity Frequency Comment: house chores Seatbelt Use: always Sunscreen Use: No Assistive Devices: None Review of Systems Review of Systems: Denies current fever, chills, headache, changes in vision, hearing, taste, and smell, chest pain, abdominal pain, nausea, vomiting, diarrhea, hematemesis, melena, dysuria, hematuria, and recent falls. All systems have been reviewed and are otherwise negative. Physical Exam Physical Exam: Physical Exam: General: In no acute distress, stated age, morbidly obese, chronically ill- appearing but non-toxic appearing HEENT: Normocephalic, atraumatic, no scleral icterus, pupils around round, symmetrical, and reactive to light, moist mucus membranes, trachea midline, no thyromegaly Chest/Pulm: No respiratory distress, symmetrical chest expansion, decreased breath sounds in the BL lower lung cheng, BL expiratory wheezing in all other lung cheng Cardiac: RRR, no murmurs noted Abdomen: Negative for ascites and bruising, normoactive bowel sounds, soft, non-tender to palpation throughout Gu: Patient currently with conn catheter in place, currently draining clear, yellow urine Musculoskeletal: Symmetrical and without signs of acute trauma, upper and lower extremities with full ROM, no atrophy, spasticity, or flaccidity Extremities: Radial, dorsalis pedis, and posterior tibial pulses are intact and symmetrical, no pitting edema noted in the BL LE's Skin: Warm, dry, no rashes , lesions, or scars noted Neuro: Alert and oriented to person, place, month, year, and president, no focal defects, CN II-XII tested and intact, finger to nose test negative, no tremors noted Psych: No acute distress, calm and cooperative during the exam Results & Data Results & Data ([facility]) Vital Signs (Past 12 Hours) Vital Signs Temp Pulse Pulse Resp BP BP Pulse Ox 04/21/22 11:25 71 24 129/59 L 100 04/21/22 10:55 97 04/21/22 10:43 97 04/21/22 10:39 35.6 C L 77 28 H 138/70 97 O2 Del Method O2 Flow Rate 04/21/22 11:25 Nebulizer 04/21/22 10:55 Nasal Cannula 2 04/21/22 10:43 Nasal Cannula 04/21/22 10:39 Nasal Cannula 2 Laboratory Results Abnormal lab results 04/21/22 04/21/22 04/21/22 Range/Units 11:10 11:10 11:10 RBC 3.15 L (3.93-5.22) M/uL Hgb 10.0 L (12.0-16.0) g/dl Hct 31.8 L (34.1-44.9) % MCV 101.0 H (80.0-100.0) fL MCHC 31.4 L (32.0-36.0) g/dL RDW Std Deviation 56.2 H (36.4-46.3) fL RDW Coeff of Emil 15.3 H (11.5-14.5) % Plt Count 433 H (130-400) K/uL Neut # (Auto) 6.86 H (1.4-6.5) K/uL Lymph # (Auto) 0.82 L (1.2-3.4) K/uL Immature Gran # (Auto) 0.04 H (0.00-0.02) K/uL Potassium 5.4 H (3.5-5.1) mmol/L BUN 71 H (6-23) mg/dl Creatinine 2.22 H (0.6-1.2) mg/dl BUN/Creatinine Ratio 32.0 H (10-20) B-Natriuretic Peptide 800 H (0-100) pg/ml Globulin 4.4 H (2.5-4.0) gm/dl Diagnostic Findings Chest X-Ray 04/21/22 10:55 XR chest 1V portable CLINICAL HISTORY: Dyspnea TECHNIQUE: Single frontal radiograph of the chest was obtained. Comparison: Comparison is made to chest radiograph 04/08/2022 FINDINGS: No lines and tubes are seen. Cardiomegaly is noted. The aortic arch is calcified. Multifocal airspace opacities are stable to minimally improved from prior exam. Prominence of the vasculature is noted. No evidence of pleural effusion or pneumothorax. IMPRESSION: Cardiomegaly is seen. Multifocal airspace opacities are stable to minimally improved from prior exam and may represent multifocal pneumonia, likely with superimposed pulmonary edema. ACT 112: Negative or not required by law. Electronically signed by: Clarke Bernstein M.D. 04/21/2022 11:14 AM ECG Additional Comments: Poor data quality, interpretation may be adversely affected Undetermined rhythm Nonspecific ST abnormality Abnormal ECG When compared with ECG of 29-MAR-2022 15:33, Current undetermined rhythm precludes rhythm comparison, needs review ST now depressed in Anterior leads Code Status & VTE Plan Code Status Code status VTE Prophylaxis Plan VTE Prophylaxis will be ordered: Yes Supervising Physician Co-Signing Physician Notes I personally saw and examined the patient. I verified all alfaro points and agree with Blair Hsieh PA-C with the following exceptions and/or additions: 71 year old female admission for acute worsening shortness of breath and fatigue after recent admission from Mar 28 - Apr 09 with shortness of breath requiring diuretics. Discharge from [facility] not on lasix or metolazone - unclear when it was discontinued O/E Drowsy (given lorazepam in the ER), Accessory muscle use and unable to complete full sentences, mild expiratory wheezing, bibasal absent breath sounds, HS RRR, no murmurs, Abdo SNT A/P Acute respiratory failure with hypoxia secondary to hypervolemic status mostly from CKD with nephrotic syndrome rather than heart failure - Agree with restarting Lasix and metolazone as above. Likely to have to accept some rise in Cr to unable euvolemia. Strict I&Os, low Na, fluid restrict 1500ml. PG Care Time/CCT Total # of Minutes Spent Total Time Spent with Patient: Total time spent is greater than 50% in coordination of care (as documented) at patient's floor/unit and/or counseling patient: C[place] [address] INT INP/OBS CARE 3/75MIN Patient Type Established Medical Decision Making High Complexity Diagnoses Acute respiratory failure with hypoxia J96.01 Iron deficiency anemia D50.9 Diastolic CHF, acute on chronic I50.33 Hyperkalemia E87.5 CKD (chronic kidney disease) stage 3, GFR 30-59 ml/min N18.3 Hypertension I10 Hypertension type: unspecified Diabetes mellitus type 2, uncontrolled E11.65 Glycemic state: with hyperglycemia Dyslipidemia E78.5 Hyperthyroidism E05.90 Major depressive disorder, recurrent severe without psychotic features F33.2 (1) Diabetes mellitus type 2, uncontrolled Glycemic state: with hyperglycemia Qualified Code(s): E11.65 - Type 2 diabetes mellitus with hyperglycemia (2) Hypertension Hypertension type: unspecified Qualified Code(s): I10 - Essential (primary) hypertension
[2022-04-21 12:21] LABS: Appearance Urine Clear (Clear); Bacteria Urine Automated Negative (Negative); Bilirubin Urine Negative (Negative); Blood Urine Negative (Negative); Color Urine Yellow; Glucose Urine UA Negative (Negative); Ketones Urine Trace (Negative); Leukocyte Esterase Urine Negative (Negative); Nitrite Urine Negative (Negative); Protein Urine 2+ (Negative); Specific Gravity Urine 1.016 (1.000-1.030); Urobilinogen Urine Negative (Negative)
[2022-04-21 12:22] LABS: Influenza A virus by PCR Negative (Neg); Influenza B virus by PCR Negative (Neg); RSV by PCR Negative (Neg); SARS CoV2 RNA(COVID-19) Ceph NEGATIVE (Negative)
[2022-04-21 13:11] LABS: RBC Urine Automated 0-4 /hpf (0-4)
[2022-04-21] MEDS ORDERED: SODIUM ZIRCONIUM CYCLOSILICATE 10 GM PACKET PO ONE (13:14)
[2022-04-21] MEDS ORDERED: metOLazone 2.5 MG TABLET PO ONE (13:39)
[2022-04-21] MEDS ORDERED: DEXTROSE 50% 50 ML SYRINGE IV PRN (14:26)
[2022-04-21] MEDS ORDERED: GLUCOSE 40% GEL 15 GM TUBE PO PRN (14:26)
[2022-04-21] MEDS ORDERED: CARBOHYDRATES FOR HYPOGLYCEMIA PO PRN (14:26)
[2022-04-21] MEDS ORDERED: GLUCOSE 10 TAB/TUBE PO PRN (14:26)
[2022-04-21] MEDS ORDERED: POLYETHYLENE (MIRALAX) 17 GM PACK PO PRN (14:26)
[2022-04-21] MEDS ORDERED: ACETAMINOPHEN 325 MG TAB PO PRN (14:26)
[2022-04-21] MEDS ORDERED: GLUCAGON FOR INJ 1 MG VIAL SQ PRN (14:26)
[2022-04-21] MEDS: hydrALAZINE TAB 50 MG TAB PO SCH ×2 (15:41→20:35)
[2022-04-21] MEDS: HEPARIN SOD 5,000 UNIT/0.5 ML VIAL SQ SCH ×2 (15:42→20:36)
[2022-04-21] MEDS: methIMAzole 5 MG TABLET PO SCH (15:43)
[2022-04-21] MEDS: VENLAFAXINE HCL XR 150 MG CAPXR PO SCH (15:43)
[2022-04-21] MEDS: amLODIPine BESYLATE 5 MG TAB PO SCH (15:44)
[2022-04-21] MEDS: ALBUT/IPRATROP 3MG/0.5MG NEB 3 ML VIAL NEB SCH ×2 (15:46→20:40)
[2022-04-21 16:17] LABS: Thyroid Stimulating Hormone 6.343 uIu/ml (0.300-4.500)
[2022-04-21 16:49] LABS: T4 Free Thyroxine 1.03 ng/dl (0.61-1.60)
[2022-04-21] MEDS ORDERED: FUROSEMIDE 40 MG/4 ML VIAL IV SCH ×2 (17:00→21:00)
[2022-04-21] MEDS: INSULIN ASPART PER UNIT SC SCH ×2 (18:49→20:33)
[2022-04-21] MEDS: LANTUS PER UNIT CHARGE SQ SCH (20:33)
[2022-04-21] MEDS: LABETALOL HCL 200 MG TAB PO SCH (20:36)
[2022-04-21] MEDS: KETOROLAC 0.5% OP SOLN PER DROP CHARGE OPB SCH (20:52)
[2022-04-22] MEDS: HEPARIN SOD 5,000 UNIT/0.5 ML VIAL SQ SCH ×3 (06:04→21:16)
[2022-04-22 06:29] LABS: Hematocrit (blood only) 25.2 % (34.1-44.9); Mean Corpuscular Hemoglobin 32.1 pg (25.0-34.0); Mean Corpuscular Hgb Conc 31.7 g/dL (32.0-36.0); Mean Corpuscular Volume 101.2 fL (80.0-100.0); Platelet Count 350 K/uL (130-400); RDW Coefficient of Variation 15.2 % (11.5-14.5); RDW Standard Deviation 56.4 fL (36.4-46.3); Red Blood Count 2.49 M/uL (3.93-5.22); White Blood Count 9.69 K/ul (4.8-10.8)
[2022-04-22] MEDS: ALBUT/IPRATROP 3MG/0.5MG NEB 3 ML VIAL NEB SCH ×4 (07:07→19:48)
[2022-04-22 07:10] LABS: BUN Creatinine Ratio 30.8 (10-20); Calcium 8.7 mg/dl (8.5-10.1); Creatinine Clr Calc Pharmacy 24.1 ml/min; Est GFR (Non-African American) 19.8 ml/min; Magnesium 2.2 mg/dl (1.7-2.4); Potassium 4.8 mmol/L (3.5-5.1)
[2022-04-22] MEDS: LABETALOL HCL 200 MG TAB PO SCH ×2 (08:28→21:16)
[2022-04-22] MEDS: hydrALAZINE TAB 50 MG TAB PO SCH ×3 (08:29→21:16)
[2022-04-22] MEDS: metOLazone 2.5 MG TABLET PO SCH ×2 (08:29→08:44)
[2022-04-22] MEDS: ROSUVASTATIN CALCIUM 10 MG TAB PO SCH (08:29)
[2022-04-22] MEDS: CYANOCOBALAMIN (B-12) 500 MCG TABLET PO SCH (08:30)
[2022-04-22] MEDS: amLODIPine BESYLATE 5 MG TAB PO SCH (08:30)
[2022-04-22] MEDS: VENLAFAXINE HCL XR 150 MG CAPXR PO SCH (08:30)
[2022-04-22] MEDS: PANTOprazole 40 MG TAB PO SCH (08:30)
[2022-04-22] MEDS: methIMAzole 5 MG TABLET PO SCH (08:30)
[2022-04-22] MEDS: INSULIN ASPART PER UNIT SC SCH ×4 (08:36→21:35)
[2022-04-22] MEDS: LANTUS PER UNIT CHARGE SQ SCH ×2 (08:37→21:36)
[2022-04-22] MEDS: FUROSEMIDE 40 MG TAB PO SCH ×2 (09:22→17:28)
[2022-04-22] MEDS: KETOROLAC 0.5% OP SOLN 5 ML BTL OPB SCH ×2 (09:23→21:17)
--- NOTE | 2022-04-22 16:12 | Hospitalist Progress Note ---
Date of Service April 22, 2022 Assessment & Plan (1) Acute respiratory failure with hypoxia: Plan: -Patient was just discharged from [facility] on 04/09/22 for diastolic chf exacerbation, was discharged with an increased dose of lasix and started on metolazone, however, these were stopped at [facility] due to concerns for her CKD presumably -Patient presented here with SOB and found to be in CHF exacerbation again, pulm edema noted on CXR, BNP increased compared to last admission -S/P 60 mg IV lasix in the ED and already much improved -Procal obtained on admission is < 0.05, will hold abx at this time despite chest x-ray with multifocal infiltrates-likely atypical pulmonary edema -Restart home Lasix 40 Mg p.o. BID and 2.5 mg PO metolazone daily like her last admission to get her back to her baseline volume status -Continue with conn cath for now and monitor intake/output and daily weights- discontinue Conn in the morning -Her weight on last discharge (04/09/22) was 110 kg, currently at 113kg on admission -Monitor renal function and electrolytes on am BMP-renal function stable today -Weaned off oxygen to room air at rest-we will check a two-step walk test in the morning and likely discharge to home with oxygen if needed (2) Iron deficiency anemia: Plan: -Hgb down to 8.0 today from 10.0 on admission, however this is more her baseline No recent signs of GI bleed per the patient and family -Continue B12, monitor am Hgb (3) Diastolic CHF, acute on chronic: Plan: -See acute hypoxic respiratory failure (4) Hyperkalemia: Plan: -Noted to be 5.4 on admission, no acute ECG changes -S/P 60 mg IV lasix in the ED and now potassium normal -Patient has chronic hyperkalemia and is normally on 30 mg PO Kayexalate weekly -Received 1 dose of Lokelma here -Follow BMP in the morning (5) CKD (chronic kidney disease) stage 3, GFR 30-59 ml/min: Plan: -Cr remains at baseline today at 2.3 improved compared to her discharge on 04/08 at 2.69 -with nephrotic syndrome -Per the last nephrology note on last admission her baseline cr is around 1.9 -Continue calcitriol -Monitor daily am renal function and electrolytes with BMP (6) Hypertension: Plan: -Stable -Continue amlodipine, labetalol, hydralazine and diuretics (7) Diabetes mellitus type 2, uncontrolled: Plan: -Monitor BSG ACHS, goal is 11-140 -continue 5 units lantus BID, correction factor of 40 with carb ratio of 13 -DMII -Adjust regimen as needed -restart home Farxiga on discharge potentially (8) Dyslipidemia: Plan: -Conitnue statin (9) Hyperthyroidism: Plan: -TSH 6.3 -Continue methimazole but may need to lower dose (10) Major depressive disorder, recurrent severe without psychotic features: Plan: -Continue venlafaxine Plan DVT proph-heparin SQ Dispo-PT/OT evals in AM and 2 step in AM, likely home with home health and possibly home O2 tomorrow Admission and Anticipated Discharge Date Admission Date: April 21, 2022 Subjective Patient feeling much better, not short of breath, weaned off oxygen at rest to room air. Leg swelling is improved. Telemetry is normal sinus rhythm with rates in the 70s. Review of Systems Review of Systems: All systems reviewed & are unremarkable except as noted in HPI & below Physical Exam Constitutional: WD/WN, vitals as above Eyes: + anicteric sclerae ENMT: external ear and nose normal, oropharynx normal Neck: trachea midline, no thyromegaly Respiratory: normal respiratory effort, lungs clear to auscultation Cardiovascular: Rate/Rhythm: regular rate and regular rhythm Extremities: + edema (Trace pitting edema legs bilaterally) Chest (Breasts): Chest: normal inspection of chest Gastrointestinal (Abdomen): normal bowel sounds, soft, nontender, no hepatosplenomegaly Musculoskeletal: Extremities: extremities normal to inspection; no cyanosis and no clubbing Skin: no rashes, warm and dry Neurologic: moves all extremities and awake; no focal motor deficits Psychiatric: A+Ox3, euthymic affect Lymphatic: no lymphedema Results & Data Results & Data ([facility]) Vital Signs (Past 12 Hours) Vital Signs Temp Pulse Pulse Resp BP Pulse Ox O2 Del Method 04/22/22 15:46 37.0 C 79 20 113/67 91 Room Air 04/22/22 15:00 76 04/22/22 15:21 65 18 93 Room Air 04/22/22 13:52 92 04/22/22 11:37 80 16 98 Nasal Cannula 04/22/22 11:17 36.9 C 76 20 128/63 91 Room Air 04/22/22 09:00 Nasal Cannula 04/22/22 07:31 37.4 C 76 20 122/60 95 Nasal Cannula 04/22/22 07:07 80 18 92 Nasal Cannula 04/22/22 07:06 78 O2 Flow Rate 04/22/22 15:46 04/22/22 15:00 04/22/22 15:21 04/22/22 13:52 04/22/22 11:37 2 04/22/22 11:17 04/22/22 09:00 2 04/22/22 07:31 2 04/22/22 07:07 2 04/22/22 07:06 Laboratory Results 04/22/22 04/22/22 04/22/22 Range/Units 20:23 17:03 11:50 WBC (4.8-10.8) K/ul RBC (3.93-5.22) M/uL Hgb (12.0-16.0) g/dl Hct (34.1-44.9) % MCV (80.0-100.0) fL MCH (25.0-34.0) pg MCHC (32.0-36.0) g/dL RDW Std Deviation (36.4-46.3) fL RDW Coeff of Emil (11.5-14.5) % Plt Count (130-400) K/uL MPV (9.4-12.3) fL Sodium (136-145) mmol/L Potassium (3.5-5.1) mmol/L Chloride (98-107) mmol/L Carbon Dioxide (21-32) mmol/L Anion Gap (3-11) BUN (6-23) mg/dl Creatinine (0.6-1.2) mg/dl Est Cr Clr Drug Dosing ml/min Est GFR ( Amer) ml/min Est GFR (Non-Af Amer) ml/min BUN/Creatinine Ratio (10-20) Glucose (70-99(Fasting)) mg/dl POC Glucose 253 H 208 H 213 H (70-99) mg/dl Calcium (8.5-10.1) mg/dl Magnesium (1.7-2.4) mg/dl 04/22/22 04/22/2204/22/23 Range/Units 07:53 06:14 06:14 WBC 9.69 (4.8-10.8) K/ul RBC 2.49 L (3.93-5.22) M/uL Hgb 8.0 L (12.0-16.0) g/dl Hct 25.2 L (34.1-44.9) % MCV 101.2 H (80.0-100.0) fL MCH 32.1 (25.0-34.0) pg MCHC 31.7 L (32.0-36.0) g/dL RDW Std Deviation 56.4 H (36.4-46.3) fL RDW Coeff of Emil 15.2 H (11.5-14.5) % Plt Count 350 (130-400) K/uL MPV 11.0 (9.4-12.3) fL Sodium 139 (136-145) mmol/L Potassium 4.8 (3.5-5.1) mmol/L Chloride 104 (98-107) mmol/L Carbon Dioxide 27 (21-32) mmol/L Anion Gap 8 (3-11) BUN 73 H (6-23) mg/dl Creatinine 2.37 H (0.6-1.2) mg/dl Est Cr Clr Drug Dosing 24.1 ml/min Est GFR ( Amer) 23.0 ml/min Est GFR (Non-Af Amer) 19.8 ml/min BUN/Creatinine Ratio 30.8 H (10-20) Glucose 140 H (70-99(Fasting)) mg/dl POC Glucose 144 H (70-99) mg/dl Calcium 8.7 (8.5-10.1) mg/dl Magnesium 2.2 (1.7-2.4) mg/dl PG Care Time/CCT Total # of Minutes Spent Total Time Spent with Patient: Total time spent is greater than 50% in coordination of care (as documented) at patient's floor/unit and/or counseling patient: Coding Level of Care Code 92271 SUB INP/OBS CARE 2/35MIN Diagnoses Acute respiratory failure with hypoxia J96.01 Iron deficiency anemia D50.9 Diastolic CHF, acute on chronic I50.33 Hyperkalemia E87.5 CKD (chronic kidney disease) stage 3, GFR 30-59 ml/min N18.3 Hypertension I10 Hypertension type: unspecified Diabetes mellitus type 2, uncontrolled E11.65 Glycemic state: with hyperglycemia Dyslipidemia E78.5 Hyperthyroidism E05.90 Major depressive disorder, recurrent severe without psychotic features F33.2 (1) Diabetes mellitus type 2, uncontrolled Glycemic state: with hyperglycemia Qualified Code(s): E11.65 - Type 2 diabetes mellitus with hyperglycemia (2) Hypertension Hypertension type: unspecified Qualified Code(s): I10 - Essential (primary) hypertension
[2022-04-22] MEDS: KETOROLAC 0.5% OP SOLN PER DROP CHARGE OPB SCH (19:48)
--- NOTE | 2022-04-22 21:41 | Electrocardiogram Report ---
Test Reason : Blood Pressure : / mmHG Vent. Rate : 079 BPM Atrial Rate : 078 BPM P-R Int : 130 ms QRS Dur : 076 ms QT Int : 398 ms P-R-T Axes : 051 044 044 degrees QTc Int : 456 ms Poor data quality, interpretation may be adversely affected Sinus rhythm Nonspecific ST abnormality Abnormal ECG When compared with ECG of 29-MAR-2022 15:33, No significant change Confirmed by Mitesh Kuhn ([id number]) on 04/22/2022 9:40:55 PM Referred By: REFERRED SELF Confirmed By:Mitesh Kuhn
[2022-04-23] MEDS: HEPARIN SOD 5,000 UNIT/0.5 ML VIAL SQ SCH (06:28)
[2022-04-23 06:45] LABS: Hematocrit (blood only) 25.1 % (34.1-44.9); Mean Corpuscular Hemoglobin 31.9 pg (25.0-34.0); Mean Corpuscular Hgb Conc 31.9 g/dL (32.0-36.0); Mean Platelet Volume 11.1 fL (9.4-12.3); Platelet Count 335 K/uL (130-400); RDW Standard Deviation 55.1 fL (36.4-46.3); Red Blood Count 2.51 M/uL (3.93-5.22)
[2022-04-23 07:03] LABS: BUN Creatinine Ratio 27.3 (10-20); Calcium 8.6 mg/dl (8.5-10.1); Est GFR (African American) 20.9 ml/min; Est GFR (Non-African American) 18.1 ml/min; Magnesium 2.1 mg/dl (1.7-2.4); Potassium 4.8 mmol/L (3.5-5.1)
[2022-04-23] MEDS: ALBUT/IPRATROP 3MG/0.5MG NEB 3 ML VIAL NEB SCH ×2 (07:15→11:31)
[2022-04-23] MEDS: KETOROLAC 0.5% OP SOLN 5 ML BTL OPB SCH (08:03)
[2022-04-23] MEDS: hydrALAZINE TAB 50 MG TAB PO SCH (08:04)
[2022-04-23] MEDS: LABETALOL HCL 200 MG TAB PO SCH (08:04)
[2022-04-23] MEDS: FUROSEMIDE 40 MG TAB PO SCH (08:05)
[2022-04-23] MEDS: CYANOCOBALAMIN (B-12) 500 MCG TABLET PO SCH (08:05)
[2022-04-23] MEDS: metOLazone 2.5 MG TABLET PO SCH (08:05)
[2022-04-23] MEDS: PANTOprazole 40 MG TAB PO SCH (08:05)
[2022-04-23] MEDS: VENLAFAXINE HCL XR 150 MG CAPXR PO SCH (08:05)
[2022-04-23] MEDS: methIMAzole 5 MG TABLET PO SCH (08:06)
[2022-04-23] MEDS: ROSUVASTATIN CALCIUM 10 MG TAB PO SCH (08:06)
[2022-04-23] MEDS: amLODIPine BESYLATE 5 MG TAB PO SCH (08:06)
[2022-04-23] MEDS: LANTUS PER UNIT CHARGE SQ SCH (08:11)
[2022-04-23] MEDS: INSULIN ASPART PER UNIT SC SCH ×2 (08:11→11:56)
[2022-04-23] MEDS ORDERED: CALCITRIOL 0.25 MCG CAPSULE PO SCH (09:00)
--- NOTE | 2022-04-23 12:15 | Discharge Summary ---
Date of Service April 23, 2022 Admission HPI Per Admitting Provider Elida is a 71 year old female with a PMH significant for CKD, nephrotic syndrome, GERD, HTN, diastolic CHF,dyslipidemia, DM2, hyperthyroidism, and depression who presented to the [facility] ED on 04/21/22 with a chief complaint of SOB. In the ED the patient was found to be afebrile, hemodynamically stable, but hypoxic in the 80's on RA. Labs were remarkable for a WBC WNL, stable Hgb, thrombocytosis of 433, absolute neutrophil count of 6.86, cr of 2.22 (baseline was reported as 1.9 per nephrology), potassium of 5.4, otherwise stable electrolytes, LFTs WNL, initial high sensitivity trop of 13.2, BNP of 800 (up fr om 675 as of 04/03/22), covid/influenza/rsv negative, Chest xray was read as "Cardiomegaly is seen. Multifocal airspace opacities are stable to minimally improved from prior exam and may represent multifocal pneumonia, likely with superimposed pulmonary edema.". Prior to admission the patient was placed on 2L NC and remained stable, she was also given a DuoNeb treatment, 60 mg IV lasix, 0.5 mg IV Ativan, and 1gm of PO tylenol. Per chart review, the patient was recently admitted to [facility] from 03/28/22- 04/09/22 for acute hypoxic respiratory failure, severe iron deficiency anemia with a hgb of 5.9, acute on chronic kidney disease. Her acute hypoxic respiratory failure was thought to be multifactorial including possible diastolic CHF and obesity. The patient had a TTE obtained on 03/29/22 which showed a preserved ejection fractions and no significant valvular disease, it did not comment on her diastolic function. She responded well to diuretics, pulmonary was consulted during the admission and recommended continued diuretics and aggressive pulmonary hygiene. She was placed on 2L with exertion but was not discharged with O2. She was also noted to be discharged on 40 mg of lasix BID and 2.5 mg PO metolazone daily. She was evaluated by Nephrology for her KEEGAN on CKD, it was thought to be be due to ATN due to dehydration and continued Lisinopril use. Her kidney function fell back to baseline while holding her lisinopril, diuresis, and 1 unit PRBCs. Her lisnopril was discontinued and she was started on TID hydralazine along with with amlodipine, labetalol and diuretics. Her anemia was thought to be mainly due to severe iron deficiency anemia. She was found to have a hgb of 5.9 and she was noted to have a transferrin saturation of 7%. She was treated with 1 units PRBCs and was given 3 doses of 300 mg IV Venofer during her admission and her hgb remained stable. She was evaluated by GI during her admission who recommended outpatient EGD for further workup. At the time of the exam the patient was sleeping comfortably in bed with her daughter sitting bedside, history was obtained from both. The patient was just discharged from [facility] on 04/19/22 after being discharged from [facility] on 04/09/22. Her daughter felt as though the patient was discharged too early. The patient lives at home with her who has his own health issues and is not able to assist her much at all. They state that since being home the patient has continued to have increased SOB at rest and with exertion. She denies recent fever or chills and chest pain. She has been experiencing a non-productive cough. She denies recent abdominal pain, nausea, vomiting, diarrhea, dysuria, hematuria, and recent falls. She was not discharged on home O2 and has been taking her lasix and metolazone as prescribed on last discharge. At the time of the exam the patient is currently stable on 2L NC. I spoke with the patient and her daughter regarding code status, she is a full code. She wishes for her and daughter to make decisions for her if she could not make them herself. Per review of the discharge paperwork from [facility], the [facility]'s med rec instructed her to STOP taking the lasix and metolazone but did not explain why. Attempted to call [facility] to speak with their care team, they were busy and did not call back at the time of the admission. Please refer to Dr. Sams's attestation for any changes to the treatment plan. Principal Diagnosis Acute on chronic diastolic CHF, Hypoxic respiratory failure, CKD stage 4 Discharge Exam Constitutional WD/WN, vitals as above Eyes + anicteric sclerae Neck trachea midline, no thyromegaly Respiratory normal respiratory effort, lungs clear to auscultation Cardiovascular Rate/Rhythm: regular rate and regular rhythm Extremities: + edema (Trace pitting edema legs bilaterally) Chest (Breasts) Chest: normal inspection of chest Gastrointestinal (Abdomen) normal bowel sounds, soft, nontender, no hepatosplenomegaly Musculoskeletal Extremities: extremities normal to inspection; no cyanosis and no clubbing Skin no rashes, warm and dry Neurologic moves all extremities and awake; no focal motor deficits Psychiatric A+Ox3, euthymic affect Lymphatic no lymphedema Discharge Data Allergies Allergy/AdvReac Type Severity Reaction Status Date / Time No Known Drug Allergies Allergy Unknown Verified 03/28/22 20:43 Consultations 04/21/22 12:09 ED Decision to Admit Stat Hospital Course (1) Acute respiratory failure with hypoxia: -Patient was just discharged from [facility] on 04/09/22 for diastolic chf exacerbation, was discharged with an increased dose of lasix and started on metolazone, however, these were stopped at [facility] due to concerns for her CKD presumably -Patient presented here with SOB and found to be in CHF exacerbation again, pulm edema noted on CXR, BNP increased compared to last admission -S/P 60 mg IV lasix in the ED and already much improved, weight down 4 kg back to baseline at time of discharge from 2 weeks ago -Procal obtained on admission is < 0.05, will hold abx at this time despite chest x-ray with multifocal infiltrates-likely atypical pulmonary edema -Restarted home Lasix 40 Mg p.o. BID and 2.5 mg PO metolazone daily like her last admission to get her back to her baseline volume status -on discharge will decrease metalozone to 2.5mg po 3x/week (MWF) -Monitor renal function and electrolytes on BMP in 3 days as outpt-tool keeper 2.5 on discharge -Weaned off oxygen to room air at rest and with exertion (2) Iron deficiency anemia: -Hgb down to 8.0 from 10.0 on admission, however this is more her baseline, remained stable, no evidence fo bleeding No recent signs of GI bleed per the patient and family -Continue B12 monitor CBC as outpt (3) Diastolic CHF, acute on chronic: -See acute hypoxic respiratory failure (4) Hyperkalemia: -Noted to be 5.4 on admission, no acute ECG changes -S/P 60 mg IV lasix in the ED and now potassium normal -Received 1 dose of Lokelma here -Follow BMP as outpt no po meds for hyperkalemia going home as now back on metolazone and bid lasix (5) CKD (chronic kidney disease) stage 3, GFR 30-59 ml/min: -Cr slightly up to 2.5 after restarting diuretics but overall improved compared to her discharge on 04/08 at 2.69 -with nephrotic syndrome -Per the last nephrology note on last admission her baseline cr is around 1.9 -Continue calcitriol, diuretics, Farxiga -has upcoming f/u with Dr. Paige of Nephro within 2 weeks, BMP in 3 days (6) Hypertension: -Stable -Continue amlodipine, labetalol, hydralazine and diuretics (7) Diabetes mellitus type 2, uncontrolled: Requiring [facility] lower insuline requirements than previous home dose 70/30 57 unit sbid reduce to 70/30 10 units bid on discharge and follow -restart home Farxiga on discharge (8) Dyslipidemia: -Conitnue statin (9) Hyperthyroidism: -TSH 6.3 -Continue methimazole but lower dose to 5mg daily follow TSH in 4-6 months (10) Major depressive disorder, recurrent severe without psychotic features: -Continue venlafaxine Plan DVT proph-heparin SQ Dispo-PT/OT evals recommend home with home health, no O2 needed Total Time Total Time Spent Total Time Spent (In Minutes): 35 min Discharge Plan Discharge Items Patient Disposition: Home - Home Health Services Reason For Visit: SOB Discharge Diagnosis: Acute on chronic diastolic CHF, Chronic kidney disease, Hypoxia Condition on Discharge: Fair Activity: As commented below Exercise/Sports: Gradually increase as tolerated Non-emergency contact: Primary Care Provider and Clinical Marketing Manager Call non-emergency contact if: you have any medication questions and your symptoms worsen Follow-up/Referrals: Ramirez Villela CRNP [Primary Care Provider] - 05/01/22 8:20 am Donna Paige MD [Physician] - 05/08/22 11:20 am () Diet: Carb Consistent or DM2 and Low Sodium (2gm) Fluids: 1500ml (6 cups) Ambulatory Orders: Renal Function Panel (Routine) Timeframe: 3 Days Location: Determined by Patient Ordered By: Nelida Hernández Addtl Attending Provider Instructions: You were admitted with shortness of breath and low oxygen levels due to extra fluid in the lungs. This improved with restarting your water pills. Please continue taking the lasix and metolazone each day. You should have blood work checked in 3 days with the results to be sent to your PCP and to Dr. Paige of Nephrology. You were no longer requiring the use of supplemental oxygen at the time of discharge. Your insulin dose is now MUCH lower than previous. Please continue to check your blood sugars 3-4 times per day and follow up with your PCP on this. You can continue on your Farxiga for diabetes and your kidney disease. Your thyroid function was too low and your methimazole dose was lowered down to 5mg daily. Please have your PCP follow up on this as well. Call your Primary Care doctor if any of the following symptoms or problems start or get worse: * Shortness of breath or difficulty breathing * Wake up at night short of breath * Chest pain * Cough * Swelling of your hands, feet, or legs * More fatigued or tired with your normal activity * Palpitations - sudden fast heart beats WEIGHT * Weigh yourself every morning after using the bathroom. * Use the same scale. * Wear the same amount of clothing. * Write your weight down on a chart. * Call your Primary Care doctor if you gain more than 2-3 pounds in 1-2 days. MEDICATIONS * Use this discharge instruction sheet for medication instructions. * Take your medications at the time your doctor ordered. * Do not skip a dose of your medicines. * If you miss a dose of medicine, take it as soon as possible, but DO NOT DOUBLE A DOSE. * Read your medicine information when you get home. * Know all of the side effects of your medicine. If in doubt, ask your pharmacist * Call your Primary Care doctor's office if you have any side effects. * Be sure all of your doctors know what medicine and herbs you take (including cold, flu, and herbal medicine). Take the following with you to your follow-up doctor appointments: * Weight Chart * Medication List * List of questions Do not drink excessive alcohol, beer or wine. Pending Studies at Discharge: No Stand-Alone Forms: My Mechanology, Smoking Cessation Medications and DC Order Prescriptions: Continued rosuvastatin 10 mg tablet 10 mg PO QAM Qty: 90 1RF calcitriol 0.25 mcg capsule 0.25 mcg PO 3XWK Qty: 36 3RF Rx Instructions: Saturday, Saturday, Saturday in the morning pantoprazole 40 mg tablet,delayed release (DR/EC) 40 mg PO QAM Qty: 90 1RF venlafaxine [Effexor XR] 150 mg capsule,extended release 24hr 150 mg PO QAM Qty: 90 1RF amlodipine 10 mg tablet 10 mg PO QAM Qty: 90 1RF (DME) blood-glucose meter [Blood Glucose Monitoring] Kit See Rx Instructions .ROUTE .MEDSUPPLY Qty: 1 0RF Rx Instructions: As directed Testing BS TID (DME) Blood Glucose Test Strip See Rx Instructions .ROUTE .MEDSUPPLY Qty: 100 5RF Rx Instructions: As directed. Testing BS TID (DME) lancets [BD Ultra Fine Lancets] 33 gauge misc See Rx Instructions .Route Qty: 100 3RF Rx Instructions: As directed. Testing BS TID labetalol 200 mg tablet 200 mg PO BID Qty: 180 3RF Farxiga 10 mg tablet 10 mg PO DAILY Qty: 90 3RF acetaminophen 500 mg Tablet 1,000 mg PO Q6H PRN (Reason: Pain) ketorolac 0.5 % drops 1 drp OPB BID furosemide 40 mg Tablet 40 mg PO BID17 Qty: 60 0RF cyanocobalamin (vitamin B-12) 500 mcg Tablet 1,000 mcg PO QAM Qty: 60 0RF Rx Instructions: OTC hydralazine 50 mg Tablet 50 mg PO TID Qty: 90 0RF Changed metolazone 2.5 mg Tablet 2.5 mg PO 3XWK Qty: 12 0RF Novolin 70/30 U-100 Insulin 100 unit/mL (70-30) suspension 10 unit SQ BID Qty: 10 3RF methimazole 10 mg tablet 5 mg PO QAM Qty: 90 1RF Discontinued sodium polystyrene sulfonate Powder 30 g PO WK Rx Instructions: once a week Discharge Orders: Discharge Order (Routine); Ordered 04/23/22 Ordered By: Nelida Hernández Admission Data Admit Date/Time: 04/21/22 12:42 Attending Provider: Nelida Hernández Admit Provider: Blair Hsieh Primary Care Provider: Ramirez Villela Other Providers: Valdo Sams Coding Level of Care Code HOSP INP/OBS DISCH >30 MIN Diagnoses Acute respiratory failure with hypoxia J96.01 Iron deficiency anemia D50.9 Diastolic CHF, acute on chronic I50.33 Hyperkalemia E87.5 CKD (chronic kidney disease) stage 3, GFR 30-59 ml/min N18.3 Hypertension I10 Hypertension type: unspecified Diabetes mellitus type 2, uncontrolled E11.65 Glycemic state: with hyperglycemia Dyslipidemia E78.5 Hyperthyroidism E05.90 Major depressive disorder, recurrent severe without psychotic features F33.2
== END 2022-04-23 13:23 | disposition home health service (06) | DRG 291 ==
LOC: ED 10:25 → EDINP 10:25 → SUATTDRO 12:42 → OBSVTOIN 12:42 → 2N 13:53

== ENCOUNTER 2022-05-21 19:44 | Inpatient (IN) ==
[2022-05-21 20:33] LABS: Basophils # (auto) 0.08 K/uL (0-0.2); Basophils % (auto) 0.9 %; Eosinophils # (auto) 0.33 K/uL (0-0.50); Eosinophils % (auto) 3.7 %; Hematocrit (blood only) 36.3 % (37.0-47.0); Hemoglobin 12.1 g/dl (12.0-16.0); Immature Granulocytes # (auto) 0.04 K/uL (0.01-0.20); Immature Granulocytes % (auto) 0.4 %; Lymphocytes # (auto) 1.37 K/uL (1.2-3.4); Lymphocytes % (auto) 15.3 %; Mean Corpuscular Hemoglobin 31.5 pg (25.0-34.0); Mean Corpuscular Hgb Conc 33.3 g/dL (32.0-36.0); Mean Corpuscular Volume 94.5 fL (80.0-100.0); Mean Platelet Volume 11.5 fL (9.4-12.4); Monocytes # (auto) 0.82 K/uL (0.11-0.59); Monocytes % (auto) 9.1 %; Neutrophils # (auto) 6.34 K/uL (1.40-6.50); Neutrophils % (auto) 70.6 %; Platelet Count 290 K/uL (130-400); RDW Coefficient of Variation 12.5 % (11.5-14.5); RDW Standard Deviation 43.2 fL (36.4-46.3); Red Blood Count 3.84 M/uL (4.20-5.40); White Blood Count 8.98 K/ul (4.8-10.8)
[2022-05-21 20:53] LABS: Alanine Aminotransferase 15 U/L (7-52); Albumin Globulin Ratio 0.9 (0.9-2); Albumin Level 3.8 gm/dl (3.4-5.0); Alkaline Phosphatase 82 U/L (34-104); Anion Gap 14 (3-11); Aspartate Aminotransferase 18 U/L (13-39); BUN Creatinine Ratio 21.9 (10-20); Bilirubin,Total 0.5 mg/dl (0.2-1.0); Blood Urea Nitrogen 63 mg/dl (6-23); Calcium 9.6 mg/dl (8.5-10.1); Carbon Dioxide 25 mmol/L (21-32); Chloride 90 mmol/L (98-107); Est GFR (African American) 18.1 ml/min; Est GFR (Non-African American) 15.7 ml/min; Globulin 4.4 gm/dl (2.5-4.0); Glucose 559 mg/dl (70-99(Fasting)); Potassium 4.8 mmol/L (3.5-5.1); Sodium 129 mmol/L (136-145); Total Protein 8.2 gm/dl (6.0-8.3)
[2022-05-21] MEDS ORDERED: SODIUM CHLORIDE 0.9% 1000ML 1,000 ML IV ONE (21:16)
[2022-05-21] MEDS ORDERED: NovoLIN-R INSULIN PER UNIT CHARGE IV STA (21:19)
--- NOTE | 2022-05-21 21:23 | Emergency Department Note ---
Impression & Plan KEEGAN (acute kidney injury), Weakness, Dizziness, Acute hyponatremia, Acute hyperglycemia ED Provider Note NAME: CRISS LEGGETT AGE: 71 SEX: F : 1950 ARRIVES VIA: Ambulance INFORMANT: Patient ED PROVIDER(S): Raghav Harkins DO CHIEF COMPLAINT: weak HPI: Patient is a 71-year-old female with a past medical history of diabetes, CKD and nephrotic syndrome who presents to the ER for near syncopal episode while in the shower. She notes she got dizzy and almost passed out. The symptoms have abated. She denies any headache or change in vision. No chest pain or shortness of breath. Normally does not check her blood sugar but family notes that she has been trying to do better but they have been elevated in the 500s. No belly pain, nausea, vomiting, or diarrhea. No dysuria, urgency, or frequency. No other exacerbating or remitting factors. Has not been eating and drinking as much as usual PAST MEDICAL HISTORY:See Below PAST SURGICAL HISTORY:See Below FAMILY HISTORY:See Below SOCIAL HISTORY:See Below HOME MEDICATIONS:See Below ALLERGIES:See Below VITALS:See Below PHYSICAL EXAMINATION: GENERAL: Sitting up in bed, alert, morbidly obese, disheveled, nontoxic EYE EXAM: normal conjunctiva. PERRL and EOM's grossly intact. OROPHARYNX: no exudate, no erythema, lips, buccal mucosa, and tongue normal and mucous membranes are moist NECK: supple, no nuchal rigidity, no adenopathy, non-tender LUNGS: Clear to auscultation. Normal chest wall mechanics HEART: no murmurs, S1 normal and S2 normal ABDOMEN: abdomen soft, non-tender, normo-active bowel sounds, no masses, no rebound or guarding. UPPER EXTREMITIES: upper extremities are grossly normal. LOWER EXTREMITIES: No pitting edema. NEURO EXAM: Normal sensorium, cranial nerves II-XII intact, normal speech, no weakness of arms, no weakness of legs. No drift. Finger to nose intact. Gross sensation intact. MEDICAL DECISION MAKING: Patient 71-year-old female who presents the ER following feeling very dizzy weak and lightheaded. IV was established blood was obtained. Labs show no significant leukocytosis or anemia. BMP with mild hyponatremia at 129 and a creatinine of 2.8 up from baseline what appears to be 1.8. Glucose was significantly elevated at 559. LFTs bilirubin was unremarkable. Troponin was negative. TSH unremarkable. UA was not obtained upon admission. Patient was completely neurologically intact. No headache or dizziness or lightheadedness on my evaluation which had abated. External records were reviewed. EKG was nondiagnostic. She was updated bedside. She was given IV fluids and an updated bedside and admitted for further work-up. Question if this is secondary to the hyperglycemia. Triage Nursing notes reviewed. Limited review of prior medical records performed Vital Signs: reviewed and remarkable for HTN Differential diagnosis: Infection, dehydration, metabolic abnormality, hypo/hyperglycemia, electrolyte disturbance, anemia, hypoxia, cardiac sources, intracerebral event, toxicologic, neurologic, as well as other pathologies. ER treatment provided: See below Diagnostics interpreted by me include EKG and cardiac monitoring as listed below: -Cardiac Monitoring: An order was placed for continuous cardiac monitoring. The monitor shows a rate of 80 with sinus rhythm. -ECG: Sinus rhythm rate 74 Normal axis No PVCs QTc 441 -Laboratory studies:Interpreted by me as stated above in MDM and shown below. Imaging studies: Xrays: As interpreted by me:none CTs show: none Consultation(s): Discussed with the hospitalist for further evaluation treatment and management. Procedures:none Critical Care: None Past Med/Surg History Medical History (Updated 05/22/22 @ 01:04 by Raghav Harkins DO) Acute respiratory failure with hypoxia Arthritis Diabetes mellitus type 2, uncontrolled IDDM Diastolic CHF, acute on chronic Dyslipidemia GERD without esophagitis HNP (herniated nucleus pulposus), lumbar Hyperglycemia Hyperkalemia Hyperkalemia Hypertension Hyperthyroidism Major depressive disorder, recurrent severe without psychotic features Melanoma of nose Morbid obesity with BMI of 40.0-44.9, adult Nephrotic syndrome Recurrent UTI SOB (shortness of breath) on exertion Vitamin D deficiency Surgical History History of bilateral cataract extraction History of colonoscopy History of melanoma excision History of repair of left rotator cuff History of repair of right rotator cuff History of tooth extraction all teeth removed S/P cholecystectomy S/P tonsillectomy S/P tubal ligation Status post trigger finger release Family History Father Prostate cancer Diabetes Myocardial infarction Lung cancer Mother Diabetes Alzheimer disease Myocardial infarction Hypertension Brother COPD (chronic obstructive pulmonary disease) Other No family history of adverse response to anesthesia Denies family history of Ovarian cancer Breast cancer Colorectal cancer Social History Smoking Status: Never smoker Second Hand Exposure: No; Hx Alcohol Use: No Hx Substance Use: No Preferred Language: Indonesian Communication Ability: Effective Visual Impairment: No Limitations Hearing Ability: Normal Hand Cigar Making Supervisor Required: No Beliefs That Will Affect Care: None marital status: Current Living Situation: Spouse current occupational status: retired current occupation: retired - worked at [employer] and [employer] Feels Safe at Home: Yes Childhood Exposure to Second-Hand Smoke: No caffeine: Yes (Soda x 10 cans per day.) during the past year weight has: remained stable Dental Care, Regularly: No Physical Activity Frequency: Daily Physical Activity Frequency Comment: house chores Seatbelt Use: always Sunscreen Use: No Assistive Devices: None Allergies Allergies Allergy/AdvReac Type Severity Reaction Status Date / Time No Known Drug Allergies Allergy Unknown Verified 05/21/22 22:24 Home Meds Home Medications Medication Instructions Recorded Confirmed acetaminophen 500 mg tablet 1,000 mg PO Q6H PRN Pain 06/19/21 05/21/22 ketorolac 0.5 % eye drops 1 drp OPB BID 03/28/22 05/21/22 Previous Rx's Medication Instructions Recorded calcitriol 0.25 mcg capsule 0.25 mcg PO 3XWK #36 caps 02/21/22 dapagliflozin 10 mg tablet 10 mg PO DAILY #90 tabs 03/06/22 (Farxiga) labetalol 200 mg tablet 200 mg PO BID #180 tabs 03/06/22 pantoprazole 40 mg tablet,delayed 40 mg PO QAM #90 tabs 03/09/22 release venlafaxine 150 mg 150 mg PO QAM #90 caps 03/15/22 capsule,extended release 24 hr (Effexor XR) amlodipine 10 mg tablet 10 mg PO QAM #90 tabs 04/16/22 blood sugar diagnostic (Blood #100 ea 04/20/22 Glucose Test strips) blood-glucose meter (Blood Glucose #1 ea 04/20/22 Monitoring kit) lancets 33 gauge (BD Ultra Fine #100 ea 04/20/22 Lancets) cyanocobalamin (vitamin B-12) 500 1,000 mcg PO QAM #60 tabs 04/23/22 mcg tablet hydralazine 50 mg tablet 50 mg PO TID #90 tabs 04/23/22 methimazole 10 mg tablet 5 mg PO QAM #90 tabs 04/23/22 blood sugar diagnostic (Accu-Chek #100 ea 04/27/22 Guide test strips) blood-glucose meter (Accu-Chek #1 ea 04/27/22 Guide Glucose Meter) lancets (Accu-Chek Softclix #200 ea 04/27/22 Lancets) Hospital Bed Homecare (Hospital #1 ea 05/04/22 Bed) buspirone 5 mg tablet 5 mg PO BID #60 tabs 05/08/22 furosemide 40 mg tablet 40 mg PO DAILY #30 tabs 05/08/22 rosuvastatin 10 mg tablet 10 mg PO QAM #90 tabs 05/08/22 insulin human U-100 NPH-regulr 30 unit (0.3 mL) subcut BID #10 mL 05/18/22 70-30 mix 100 unit/mL subcutaneous susp (Novolin 70/30 U-100 Insulin) semaglutide 0.25 mg or 0.5 mg (2 0.5 mg (0.4 mL) subcut .weekly 05/18/22 mg/1.5 mL) subcutaneous pen #1.5 mL injector (Ozempic) Results & Data (ED) Vital Signs Vital Signs - 24 hr 05/21/22 19:52 05/21/22 19:55 05/21/22 20:00 Temperature 36.8 C Temperature Source Oral Pulse Rate 73 76 Pulse Rate [Apical] 76 Respiratory Rate 18 18 Respiratory Effort / Characteristics Non-Labored Spontaneous Non-Labored Spontaneous Respiratory Depth Normal Normal Respiratory Pattern Regular Blood Pressure 147/74 H Blood Pressure [Right Arm] 160/75 H Blood Pressure Mean 98 Blood Pressure Mean [Right Arm] 103 Pulse Oximetry 96 94 Oxygen Delivery Method Room Air Room Air Sepsis Recent Fever Within 48 Hours No Sepsis New/Unexplained Change in Mental Status No Sepsis Action Taken by Nursing No Action Required 05/21/22 22:00 05/21/22 21:00 Temperature Temperature Source Pulse Rate Pulse Rate [Apical] 82 74 Respiratory Rate 16 18 Respiratory Effort / Characteristics Non-Labored Spontaneous Respiratory Depth Normal Respiratory Pattern Blood Pressure Blood Pressure [Right Arm] 115/78 120/97 Blood Pressure Mean Blood Pressure Mean [Right Arm] 90 104 Pulse Oximetry 94 96 Oxygen Delivery Method Room Air Room Air Sepsis Recent Fever Within 48 Hours Sepsis New/Unexplained Change in Mental Status Sepsis Action Taken by Nursing Laboratory Data 05/21/22 19:55 05/21/22 19:55 Lab Results 05/21/22 05/21/22 05/21/22 Range/Units 19:50 19:55 19:55 WBC 8.98 (4.8-10.8) K/ul RBC 3.84 L (4.20-5.40) M/uL Hgb 12.1 (12.0-16.0) g/dl Hct 36.3 L (37.0-47.0) % MCV 94.5 (80.0-100.0) fL MCH 31.5 (25.0-34.0) pg MCHC 33.3 (32.0-36.0) g/dL RDW Std Deviation 43.2 (36.4-46.3) fL RDW Coeff of Emil 12.5 (11.5-14.5) % Plt Count 290 (130-400) K/uL MPV 11.5 (9.4-12.4) fL Immature Gran % (Auto) 0.4 % Neut % (Auto) 70.6 % Lymph % (Auto) 15.3 % Rolette % (Auto) 9.1 % Eos % (Auto) 3.7 % Baso % (Auto) 0.9 % Neut # (Auto) 6.34 (1.40-6.50) K/uL Lymph # (Auto) 1.37 (1.2-3.4) K/uL Rolette # (Auto) 0.82 H (0.11-0.59) K/uL Eos # (Auto) 0.33 (0-0.50) K/uL Baso # (Auto) 0.08 (0-0.2) K/uL Immature Gran # (Auto) 0.04 (0.01-0.20) K/uL Sodium 129 L (136-145) mmol/L Potassium 4.8 (3.5-5.1) mmol/L Chloride 90 L (98-107) mmol/L Carbon Dioxide 25 (21-32) mmol/L Anion Gap 14 H (3-11) BUN 63 H (6-23) mg/dl Creatinine 2.88 H (0.6-1.2) mg/dl Est Cr Clr Drug Dosing Not Reportable Est GFR ( Amer) 18.1 ml/min Est GFR (Non-Af Amer) 15.7 ml/min BUN/Creatinine Ratio 21.9 H (10-20) Glucose 559 H* (70-99(Fasting)) mg/dl POC Glucose 549 H* (70-99) mg/dl Calcium 9.6 (8.5-10.1) mg/dl Total Bilirubin 0.5 (0.2-1.0) mg/dl AST 18 (13-39) U/L ALT 15 (7-52) U/L Alkaline Phosphatase 82 (34-104) U/L Troponin I High Sens 14.0 (0-14) pg/ml Total Protein 8.2 (6.0-8.3) gm/dl Albumin 3.8 (3.4-5.0) gm/dl Globulin 4.4 H (2.5-4.0) gm/dl Albumin/Globulin Ratio 0.9 (0.9-2) TSH (0.300-4.500) uIu/ml SARS-CoV-2, RNA, NAAT (NEGATIVE) 05/21/22 05/21/22 05/21/22 Range/Units 19:55 21:33 21:38 WBC (4.8-10.8) K/ul RBC (4.20-5.40) M/uL Hgb (12.0-16.0) g/dl Hct (37.0-47.0) % MCV (80.0-100.0) fL MCH (25.0-34.0) pg MCHC (32.0-36.0) g/dL RDW Std Deviation (36.4-46.3) fL RDW Coeff of Emil (11.5-14.5) % Plt Count (130-400) K/uL MPV (9.4-12.4) fL Immature Gran % (Auto) % Neut % (Auto) % Lymph % (Auto) % Rolette % (Auto) % Eos % (Auto) % Baso % (Auto) % Neut # (Auto) (1.40-6.50) K/uL Lymph # (Auto) (1.2-3.4) K/uL Rolette # (Auto) (0.11-0.59) K/uL Eos # (Auto) (0-0.50) K/uL Baso # (Auto) (0-0.2) K/uL Immature Gran # (Auto) (0.01-0.20) K/uL Sodium (136-145) mmol/L Potassium (3.5-5.1) mmol/L Chloride (98-107) mmol/L Carbon Dioxide (21-32) mmol/L Anion Gap (3-11) BUN (6-23) mg/dl Creatinine (0.6-1.2) mg/dl Est Cr Clr Drug Dosing Est GFR ( Amer) ml/min Est GFR (Non-Af Amer) ml/min BUN/Creatinine Ratio (10-20) Glucose (70-99(Fasting)) mg/dl POC Glucose 577 H* (70-99) mg/dl Calcium (8.5-10.1) mg/dl Total Bilirubin (0.2-1.0) mg/dl AST (13-39) U/L ALT (7-52) U/L Alkaline Phosphatase (34-104) U/L Troponin I High Sens (0-14) pg/ml Total Protein (6.0-8.3) gm/dl Albumin (3.4-5.0) gm/dl Globulin (2.5-4.0) gm/dl Albumin/Globulin Ratio (0.9-2) TSH 2.498 (0.300-4.500) uIu/ml SARS-CoV-2, RNA, NAAT NEGATIVE (NEGATIVE) 05/21/22 Range/Units 22:39 WBC (4.8-10.8) K/ul RBC (4.20-5.40) M/uL Hgb (12.0-16.0) g/dl Hct (37.0-47.0) % MCV (80.0-100.0) fL MCH (25.0-34.0) pg MCHC (32.0-36.0) g/dL RDW Std Deviation (36.4-46.3) fL RDW Coeff of Emil (11.5-14.5) % Plt Count (130-400) K/uL MPV (9.4-12.4) fL Immature Gran % (Auto) % Neut % (Auto) % Lymph % (Auto) % Rolette % (Auto) % Eos % (Auto) % Baso % (Auto) % Neut # (Auto) (1.40-6.50) K/uL Lymph # (Auto) (1.2-3.4) K/uL Rolette # (Auto) (0.11-0.59) K/uL Eos # (Auto) (0-0.50) K/uL Baso # (Auto) (0-0.2) K/uL Immature Gran # (Auto) (0.01-0.20) K/uL Sodium (136-145) mmol/L Potassium (3.5-5.1) mmol/L Chloride (98-107) mmol/L Carbon Dioxide (21-32) mmol/L Anion Gap (3-11) BUN (6-23) mg/dl Creatinine (0.6-1.2) mg/dl Est Cr Clr Drug Dosing Est GFR ( Amer) ml/min Est GFR (Non-Af Amer) ml/min BUN/Creatinine Ratio (10-20) Glucose (70-99(Fasting)) mg/dl POC Glucose 388 H* (70-99) mg/dl Calcium (8.5-10.1) mg/dl Total Bilirubin (0.2-1.0) mg/dl AST (13-39) U/L ALT (7-52) U/L Alkaline Phosphatase (34-104) U/L Troponin I High Sens (0-14) pg/ml Total Protein (6.0-8.3) gm/dl Albumin (3.4-5.0) gm/dl Globulin (2.5-4.0) gm/dl Albumin/Globulin Ratio (0.9-2) TSH (0.300-4.500) uIu/ml SARS-CoV-2, RNA, NAAT (NEGATIVE) Administered Medications Lactated Ringer's (Lr) 1,000 mls @ 80 mls/hr IV .[id number] IAN Stop: 05/22/22 11:56 Last Admin: 05/21/22 23:41 Dose: 80 mls/hr Documented By: DM Insulin Aspart (Insulin Aspart Per Unit) 0 units SC ACHS IAN Stop: 06/21/22 00:00 Last Admin: 05/22/22 00:19 Dose: 13 units Documented By: RAMOS Co-signed By: LUMA Discontinued Medications Sodium Chloride (Nss 1000ml) 1,000 mls @ 999 mls/hr IV .[id number] ONE Stop: 05/21/22 22:16 Last Infusion: 05/21/22 22:35 Dose: 0 mls/hr Documented By: Admin: 05/21/22 21:34 Dose: 999 mls/hr Documented By: DELMI Insulin Glargine (Lantus Per Unit Charge) 30 units SQ NOW STA Stop: 05/21/22 22:45 Last Admin: 05/21/22 23:43 Dose: 30 units Documented By: RAMOS Co-signed By: LUMA Insulin Human Regular (Novolin-R Insulin Per Unit Charge) 10 units IV NOW STA Stop: 05/21/22 21:20 Last Admin: 05/21/22 21:33 Dose: 10 units Documented By: DELMI Co-signed By: ANCELMO Discharge Plan Visit Data Chief Complaint: Syncope (Near Syncope) Stated Complaint: NEAR SYNCOPE, HERE 2 WKS AGO FOR SAME ED Provider: Raghav Harkins Discharge Problem: KEEGAN (acute kidney injury), Weakness, Dizziness, Acute hyponatremia, Acute hyperglycemia Patient Disposition: Admitted As Inpatient Discharge Instructions Interventions: ED Discharge Assessment Last Done: 05/21/22 23:11
--- NOTE | 2022-05-21 22:14 | History & Physical Report ---
Date of Service May 21, 2022 Assessment & Plan (1) Hyperglycemia: Plan: BSG 559 --> 577 on admission. Improved to 388 after Insulin NPH 10 units IV. Suspect that patient's near-syncopal episode as well as nausea/vomiting earlier today was due to hyperglycemia - thankfully no nausea or dizziness/lightheadedness presently. - continue with home basal dosing: Lantus 30units BID starting tonight - SSI - consulted cosmetology educator - patient may benefit from adjustment to basal/bolus insulin regimen as outpatient - defer to primary team/PCP (2) Acute kidney injury superimposed on CKD: Plan: Cr 2.88, baseline 1.8 - 2.3. Suspect pre-renal injury due to vomiting as well as chronic poor PO intake. - light IVFs with LR @80cc/hr x1L (cautious IVFs given HFpEF) - hold home Lasix, avoid nephrotoxins - check BMP in AM (3) Early satiety: Plan: Chronic problem, progressive over last several months. Early satiety suspicious for gastroparesis likely 2/2 to diabetes. - consider gastric emptying study and outpatient GI eval - per PCP (4) Diabetic nephropathy associated with type 2 diabetes mellitus: Plan: A1c 7.2 on 03/29/2022. Nephrotic syndrome 2/2 to diabetic nephropathy. Patient follows with Dr. Paige. Patient has good urine output and is mentating well. - patient has f/u with Dr. Paige on 05/28 (5) GERD without esophagitis: Plan: Continue home Protonix (6) Hypertension: Plan: Normotensive thus far. Continue home Amlodipine, Labetalol and Hydralazine (7) Dyslipidemia: Plan: Continue home statin (8) Hyperthyroidism: Plan: Continue home Methimazole (9) Major depressive disorder, recurrent severe without psychotic features: Plan: Continue home Effexor and Buspar Plan FEN/GI: DM2 diet, LR @80cc/hr x1L DVT Prophylaxis: Heparin SQ Code Status: full Disposition: med/tele, PT/OT ordered History of Present Illness Chief Complaint: near-syncope Primary Care Provider: LISA CalleBrian Mei is a 71yo female with a PMHx significant for T2DM (A1c 7.2 in 03/2022), CKD3 (baseline Cr 1.8 - 2.3), nephrotic syndrome, iron deficiency anemia, GERD, HTN, HFpEF (EF 60-65% in 03/2022), dyslipidemia, hyperthyroidism, and depression who presented to [facility] ED on 05/21 for near- syncopal episode while in the shower, without LOC or head trauma. Patient does not check her blood sugar but family notes that she has been trying to do better but they have been elevated in the 500s.Denies polyphagia/polydipsia/polyuria, N/V, or abdominal pain. Of note patient reports that she has been eating/drinking progressively less over last several months due to "not feeling hungry". Patient reports getting full fast. Denies dysphagia/odynophagia or heartburn. Does take PPI but GERD is well-controlled. Per our records patient has lost 10-12kg in last 2 months. In the ED the patient was mildly hypertensive to 160/75, satting well on room air and afebrile. Labs significant for BSG 559 --> 577, Na 129 (corrected 137), Cl 90, AG 14, BUN 63/Cr 2.88 (baseline 1.8 - 2.3). Otherwise CBC/CMP/Mg/hsTrop/TSH WNL. Patient received NSS 1L bolus and Insulin NPH 10 units IV. Allergies Allergy/AdvReac Type Severity Reaction Status Date / Time No Known Drug Allergies Allergy Unknown Verified 05/21/22 22:24 Home Medications Medication Instructions Recorded Confirmed Type acetaminophen 500 mg tablet 1,000 mg PO Q6H PRN Pain 06/19/21 05/21/22 History calcitriol 0.25 mcg capsule 0.25 mcg PO 3XWK #36 caps 02/21/22 05/21/22 Rx dapagliflozin 10 mg tablet 10 mg PO DAILY #90 tabs 03/06/22 05/21/22 Rx (Farxiga) labetalol 200 mg tablet 200 mg PO BID #180 tabs 03/06/22 05/21/22 Rx pantoprazole 40 mg tablet,delayed 40 mg PO QAM #90 tabs 03/09/22 05/21/22 Rx release venlafaxine 150 mg 150 mg PO QAM #90 caps 03/15/22 05/21/22 Rx capsule,extended release 24 hr (Effexor XR) ketorolac 0.5 % eye drops 1 drp OPB BID 03/28/22 05/21/22 History amlodipine 10 mg tablet 10 mg PO QAM #90 tabs 04/16/22 05/21/22 Rx blood sugar diagnostic (Blood #100 ea 04/20/22 04/27/22 Rx Glucose Test strips) blood-glucose meter (Blood Glucose #1 ea 04/20/22 04/27/22 Rx Monitoring kit) lancets 33 gauge (BD Ultra Fine #100 ea 04/20/22 04/27/22 Rx Lancets) cyanocobalamin (vitamin B-12) 500 1,000 mcg PO QAM #60 tabs 04/23/22 05/21/22 Rx mcg tablet hydralazine 50 mg tablet 50 mg PO TID #90 tabs 04/23/22 05/21/22 Rx methimazole 10 mg tablet 5 mg PO QAM #90 tabs 04/23/22 05/21/22 Rx blood sugar diagnostic (Accu-Chek #100 ea 04/27/22 04/27/22 Rx Guide test strips) blood-glucose meter (Accu-Chek #1 ea 04/27/22 04/27/22 Rx Guide Glucose Meter) lancets (Accu-Chek Softclix #200 ea 04/27/22 04/27/22 Rx Lancets) Hospital Bed Homecare (Hospital #1 ea 05/04/22 05/08/22 Rx Bed) buspirone 5 mg tablet 5 mg PO BID #60 tabs 05/08/22 05/21/22 Rx furosemide 40 mg tablet 40 mg PO DAILY #30 tabs 05/08/22 05/21/22 Rx rosuvastatin 10 mg tablet 10 mg PO QAM #90 tabs 05/08/22 05/21/22 Rx insulin human U-100 NPH-regulr 30 unit (0.3 mL) subcut BID #10 mL 05/18/22 05/21/22 Rx 70-30 mix 100 unit/mL subcutaneous susp (Novolin 70/30 U-100 Insulin) semaglutide 0.25 mg or 0.5 mg (2 0.5 mg (0.4 mL) subcut .weekly 05/18/22 05/21/22 Rx mg/1.5 mL) subcutaneous pen #1.5 mL injector (GroupTie) Past Med/Surg History Medical History (Updated 05/22/22 @ 01:04 by Raghav Harkins DO) Acute respiratory failure with hypoxia Arthritis Diabetes mellitus type 2, uncontrolled IDDM Diastolic CHF, acute on chronic Dyslipidemia GERD without esophagitis HNP (herniated nucleus pulposus), lumbar Hyperglycemia Hyperkalemia Hyperkalemia Hypertension Hyperthyroidism Major depressive disorder, recurrent severe without psychotic features Melanoma of nose Morbid obesity with BMI of 40.0-44.9, adult Nephrotic syndrome Recurrent UTI SOB (shortness of breath) on exertion Vitamin D deficiency Surgical History History of bilateral cataract extraction History of colonoscopy History of melanoma excision History of repair of left rotator cuff History of repair of right rotator cuff History of tooth extraction all teeth removed S/P cholecystectomy S/P tonsillectomy S/P tubal ligation Status post trigger finger release Family History Father Prostate cancer Diabetes Myocardial infarction Lung cancer Mother Diabetes Alzheimer disease Myocardial infarction Hypertension Brother COPD (chronic obstructive pulmonary disease) Other No family history of adverse response to anesthesia Denies family history of Ovarian cancer Breast cancer Colorectal cancer Social History Smoking Status: Never smoker Second Hand Exposure: No; Do You Dip or Chew Tobacco: No; Tobacco Cessation Education Requested by Patient: No Hx Alcohol Use: No Hx Substance Use: No Preferred Language: Telugu Communication Ability: Effective Visual Impairment: No Limitations Hearing Ability: Normal Surgery Tech Required: No Beliefs That Will Affect Care: None marital status: Current Living Situation: Spouse current occupational status: retired current occupation: retired - worked at [employer] Feels Safe at Home: Yes Safety Concerns: Feels Safe At This Time Childhood Exposure to Second-Hand Smoke: No caffeine: Yes (Soda x 10 cans per day.) during the past year weight has: remained stable Dental Care, Regularly: No Physical Activity Frequency: Daily Physical Activity Frequency Comment: house chores Seatbelt Use: always Sunscreen Use: No Assistive Devices: None Review of Systems Review of Systems: All systems reviewed & are unremarkable except as noted in HPI & below Physical Exam Physical Exam: General: A&Ox3. NAD. Cooperative. Obese. HEENT: Atraumatic, normocephalic. Pulm: CTAB A&P. -wheezes, -rales, -rhonchi. Symmetrical chest rise. No increase work of breathing. No respiratory distress. Cardiac: RRR, -mrg. Radial pulses intact and symmetrical. No LE edema. Abdominal: soft, non-tender, non-distended, BS x 4 Skin: warm, dry, no rash Results & Data Results & Data ([facility]) Vital Signs (Past 12 Hours) Vital Signs Temp Pulse Pulse Resp BP BP Pulse Ox 05/21/22 20:00 76 18 160/75 H 94 05/21/22 19:55 76 05/21/22 19:52 36.8 C 73 18 147/74 H 96 O2 Del Method 05/21/22 20:00 Room Air 05/21/22 19:55 05/21/22 19:52 Room Air Supervising Physician Co-Signing Physician Notes Attending addendum: I have physically seen this patient, have supervised the medical residents activities, and agree with the H&P unless as otherwise noted. Assessment and Plan: Hyperglycemia and diabetes mellitus type 2- Glucose 559/577 on admission, improved to 388 after regular insulin 10 units IV Check hemoglobin A1c Continue insulin glargine 30 units subcu twice daily NovoLog SSI for coverage certified adaptive physical educator consult Acute kidney injury on CKD- Creatinine 2.88 on admission, with range 1.84-2.81 Rehydrating with IV fluids, having received 1 L normal saline from the ED Continue LR at 80 mils per hour x1 L Recheck laboratories in a.m. Remaining orders and notations as noted Resident Activity Tracking Resident Involvement: Resident Care Provided Care Provided: Adult Hospital Medicine (6) Hypertension Hypertension type: unspecified Qualified Code(s): I10 - Essential (primary) hypertension
[2022-05-21] MEDS ORDERED: LANTUS PER UNIT CHARGE SQ STA (22:44)
[2022-05-21 22:58] LABS: HCO3 VBG 26 mmol/L; Oxygen Saturation VBG 69.1 %; PCO2 VBG 42 mmHg (38-50); PO2 VBG 40 mmHg
[2022-05-21] MEDS ORDERED: GLUCOSE 40% GEL 15 GM TUBE PO PRN (23:27)
[2022-05-21] MEDS ORDERED: GLUCOSE 10 TAB/TUBE PO PRN (23:27)
[2022-05-21] MEDS ORDERED: GLUCAGON FOR INJ 1 MG VIAL SQ PRN (23:27)
[2022-05-21] MEDS ORDERED: ONDANSETRON INJ 2 MG/ML 2 ML VIAL IV PRN (23:27)
[2022-05-21] MEDS ORDERED: DEXTROSE 50% 50 ML SYRINGE IV PRN (23:27)
[2022-05-21] MEDS ORDERED: CARBOHYDRATES FOR HYPOGLYCEMIA PO PRN (23:27)
[2022-05-21] MEDS ORDERED: LACTATED RINGER'S 1,000 ML IV SCH (23:27)
[2022-05-21] MEDS ORDERED: ACETAMINOPHEN 500 MG TAB PO PRN (23:27)
[2022-05-22] MEDS: INSULIN ASPART PER UNIT SC SCH ×5 (00:19→21:05)
[2022-05-22 00:52] LABS: Appearance Urine Cloudy (Clear); Bilirubin Urine Negative (Negative); Blood Urine Negative (Negative); Color Urine Yellow; Epithelial Cell Urine Auto >30 /lpf (0-5); Glucose Urine UA 3+ (Negative); Ketones Urine Negative (Negative); Leukocyte Esterase Urine 2+ (Negative); Nitrite Urine Negative (Negative); Protein Urine Trace (Negative); RBC Urine Automated 0-4 /hpf (0-4); Specific Gravity Urine 1.016 (1.000-1.030); Urobilinogen Urine Negative (Negative); WBC Urine Automated >30 /hpf (0-5)
[2022-05-22 01:19] LABS: Bacteria Urine Automated 2+ (Negative)
[2022-05-22] MEDS ORDERED: INSULIN ASPART PER UNIT SC SCH (04:00)
[2022-05-22 06:47] LABS: Hematocrit (blood only) 31.5 % (37.0-47.0); Hemoglobin 10.8 g/dl (12.0-16.0); Mean Corpuscular Hemoglobin 31.8 pg (25.0-34.0); Mean Corpuscular Hgb Conc 34.3 g/dL (32.0-36.0); Mean Corpuscular Volume 92.6 fL (80.0-100.0); Mean Platelet Volume 11.5 fL (9.4-12.4); Platelet Count 269 K/uL (130-400); RDW Coefficient of Variation 12.6 % (11.5-14.5); RDW Standard Deviation 42.6 fL (36.4-46.3); White Blood Count 10.22 K/ul (4.8-10.8)
[2022-05-22 07:07] LABS: BUN Creatinine Ratio 26.4 (10-20); Calcium 9.3 mg/dl (8.5-10.1); Creatinine Clr Calc Pharmacy 20.4 ml/min; Est GFR (African American) 21.5 ml/min; Est GFR (Non-African American) 18.6 ml/min; Potassium 3.6 mmol/L (3.5-5.1)
[2022-05-22] MEDS ORDERED: hydrALAZINE TAB 50 MG TAB PO SCH (09:00)
[2022-05-22] MEDS ORDERED: amLODIPine BESYLATE 5 MG TAB PO SCH (09:00)
[2022-05-22] MEDS: ROSUVASTATIN CALCIUM 10 MG TAB PO SCH (09:29)
[2022-05-22] MEDS: VENLAFAXINE HCL XR 150 MG CAPXR PO SCH (09:30)
[2022-05-22] MEDS: PANTOprazole 40 MG TAB PO SCH (09:30)
[2022-05-22] MEDS: methIMAzole 5 MG TABLET PO SCH (09:30)
[2022-05-22] MEDS: LABETALOL HCL 200 MG TAB PO SCH ×2 (09:31→21:06)
[2022-05-22] MEDS: CYANOCOBALAMIN (B-12) 500 MCG TABLET PO SCH (09:32)
[2022-05-22] MEDS: busPIRone 5 MG TAB PO SCH ×2 (09:32→20:51)
[2022-05-22] MEDS: LANTUS PER UNIT CHARGE SQ SCH ×2 (09:40→21:04)
[2022-05-22] MEDS: HEPARIN SOD 5,000 UNIT/0.5 ML VIAL SQ SCH ×2 (09:41→20:54)
--- NOTE | 2022-05-22 10:26 | Hospitalist Progress Note ---
Date of Service May 22, 2022 Assessment & Plan (1) Hyperglycemia: Plan: BSG 559 on admission with improvement to 200s with insulin and IV fluids. Near-syncope and nausea/vomiting suspected partially secondary to hyperglycemia. Lantus 30u BID with SSI. prosthodontist/educator and Letter Of Credit Clerk consulted. (2) Hypotension: Plan: Significant orthostatic hypotension /, improvement in symptoms with sitting and given 1L NSS with improvement in BP. Holding home amlodipine and diuretics at this time. Patient's medications are managed by her ; will discuss her regimen with him while patient is ad mitted. (3) Acute kidney injury superimposed on CKD: Plan: - Cr 2.88 -> 2.5 this admission, with baseline 1.8 - 2.3. Suspect pre-renal injury due to vomiting as well as chronic poor PO intake. - Received gentle IVF overnight and 1L bolus today when hypotensive. - Hold home Lasix, avoid nephrotoxins. - Follow serial BMP. (4) Early satiety: Plan: - Chronic problem, progressive over last several months. Early satiety suspicious for gastroparesis likely 2/2 to diabetes. - Consider gastric emptying study and outpatient GI eval - per PCP. (5) Diabetic nephropathy associated with type 2 diabetes mellitus: Plan: - A1c 7.2 on 03/29/2022. History of nephrotic syndrome 2/2 to diabetic nephropathy. Patient follows with Dr. Paige. Patient has good urine output and is mentating well. - Patient has f/u with Dr. Paige on 05/28. - See DM2 above. (6) GERD without esophagitis: Plan: Continue home Protonix. (7) Dyslipidemia: Plan: Continue home statin. (8) Hyperthyroidism: Plan: Continue home Methimazole. (9) Major depressive disorder, recurrent severe without psychotic features: Plan: Continue home Effexor and Buspar. Plan FEN/GI: DM2 diet, Nutrition consult given recent poor appetite, intermittent IVF DVT Prophylaxis: Heparin SQ Code Status: full Disposition: med/tele, PT/OT ordered Admission and Anticipated Discharge Date Admission Date: May 21, 2022 Subjective Patient feeling overall better today. In particular no longer feeling nauseated and enjoyed mashed potatoes with a meal. Had episode of lightheadedness and hyp otension today with BP 70s systolic with standing and short walk, with improvement in BP to 120s systolic with rest. Review of Systems Review of Systems: All systems reviewed & are unremarkable except as noted in Subjective Physical Exam Constitutional: WD/WN, vitals as above Respiratory: normal respiratory effort, lungs clear to auscultation Cardiovascular: RRR, no murmur, no edema Gastrointestinal (Abdomen): normal bowel sounds, soft, nontender, no hepatosplenomegaly Skin: no rashes, warm and dry Psychiatric: A+Ox3, euthymic affect Results & Data Results & Data ([facility]) Vital Signs (Past 12 Hours) Vital Signs Temp Pulse Pulse Pulse Resp BP Pulse Ox 05/22/22 07:00 36.9 C 84 16 133/74 95 05/22/22 07:25 36.9 C 83 16 136/78 94 05/22/22 04:00 36.5 C 84 18 123/62 94 05/22/22 00:47 05/21/22 23:27 36.7 C 86 18 148/76 H 95 05/21/22 23:27 05/21/22 23:39 84 05/21/22 23:00 84 16 137/66 97 05/21/22 22:00 82 16 115/78 94 Pulse Ox O2 Del Method O2 Del Method 05/22/22 07:00 Room Air 05/22/22 07:25 Room Air 05/22/22 04:00 Room Air 05/22/22 00:47 Room Air 05/21/22 23:27 Room Air 05/21/22 23:27 95 Room Air 05/21/22 23:39 05/21/22 23:00 Room Air 05/21/22 22:00 Room Air PG Care Time/CCT Total # of Minutes Spent Total Time Spent with Patient: Total time spent is greater than 50% in coordination of care (as documented) at patient's floor/unit and/or counseling patient: Coding Level of Care Code 55212 SUB INP/OBS CARE 3/50MIN Diagnoses Hyperglycemia R73.9 Hypotension I95.9 Acute kidney injury superimposed on CKD N17.9; N18.9 Early satiety R68.81 Diabetic nephropathy associated with type 2 diabetes mellitus E11.21 GERD without esophagitis K21.9 Dyslipidemia E78.5 Hyperthyroidism E05.90 Major depressive disorder, recurrent severe without psychotic features F33.2
[2022-05-22] MEDS ORDERED: SODIUM CHLORIDE 0.9% 1000ML 1,000 ML IV ONE (11:24)
--- NOTE | 2022-05-22 21:14 | Billing Data ---
Date of Service May 22, 2022 Coding Level of Care Code 16889 INT INP/OBS CARE
--- NOTE | 2022-05-23 04:39 | Electrocardiogram Report ---
Test Reason : Blood Pressure : / mmHG Vent. Rate : 074 BPM Atrial Rate : 074 BPM P-R Int : 150 ms QRS Dur : 078 ms QT Int : 398 ms P-R-T Axes : -13 016 034 degrees QTc Int : 441 ms Normal sinus rhythm When compared with ECG of 07-MAY-2022 12:30, Premature atrial complexes are no longer Present Confirmed by Efrain Salazar ([id number]) on 05/23/2022 4:38:44 AM Referred By: REFERRED SELF Confirmed By:Efrain Salazar
[2022-05-23] MEDS ORDERED: SODIUM CHLORIDE 0.9% 1000ML 500 ML IV ONE (08:31)
--- NOTE | 2022-05-23 08:32 | Hospitalist Progress Note ---
Date of Service May 23, 2022 Assessment & Plan (1) Hyperglycemia: Plan: BSG 559 on admission with improvement to 200s with insulin and IV fluids. Near-syncope and nausea/vomiting suspected partially secondary to hyperglycemia. Lantus 30u BID with SSI. electric car operator and Mass Spectroscopist consulted. BSGs very well controlled over last 24 hours, potentially due to type of foods eaten/carb balance in-house. Patient was also quite dehydrated on admission which is resolving. Patient seems to have early satiety for last few months but worse over last few weeks, potentially worsened due to Ozempic, will likely not resume on discharge in favor of insulin adjustment. (2) Hypotension: Plan: Significant orthostatic hypotension 05/22, improvement in symptoms with sitting and given 1L NSS with improvement in BP. Continue to hold home amlodipine and labetalol. Resume furosemide at decreased dose 20mg daily as patient has had several admissions for fluid overload and CHF exacerbation. (3) Acute kidney injury superimposed on CKD: Plan: Cr 2.88 -> 1.92 this admission, with baseline 1.8 - 2.3. Suspect pre-renal injury due to vomiting as well as chronic poor PO intake, diuretic use. Received gentle IVF overnight 05/21. Decrease home dose of Lasix to 20mg daily and monitor creatinine. Follow serial BMP. (4) Early satiety: Plan: Chronic problem, progressive over last several months. Early satiety suspicious for gastroparesis likely 2/2 to diabetes. Consider gastric emptying study and outpatient GI eval - per PCP. Stopped Ozempic as this medication worsens appetite. (5) Diabetic nephropathy associated with type 2 diabetes mellitus: Plan: A1c 7.2 on 03/29/2022. History of nephrotic syndrome 2/2 to diabetic nephropathy. Patient follows with Dr. Paige. Patient has good urine output and is mentating well. Patient has f/u with Dr. Paige on 05/28. See DM2 above. (6) GERD without esophagitis: Plan: Continue home Protonix. (7) Dyslipidemia: Plan: Continue home statin. (8) Hyperthyroidism: Plan: Continue home Methimazole. (9) Major depressive disorder, recurrent severe without psychotic features: Plan: Continue home Effexor and Buspar. Plan FEN/GI: DM2 low salt diet, Boost DVT Prophylaxis: Heparin SQ Code Status: full Disposition: med/tele PT and OT recommend discharge home Admission and Anticipated Discharge Date Admission Date: May 21, 2022 Subjective Today Padmaja is feeling much better. She did not have any episodes of lightheadedness or nausea, neither with lying in bed nor with walking with PT. PT cleared her to walk the halls herself should she wish to. She still endorses poor appetite in general however has been really enjoying her mashed potatoes and completely finishing those. She notes that she has had poor appetite for the last several months but worse over last 3 weeks. Review of Systems Review of Systems: All systems reviewed & are unremarkable except as noted in Subjective Physical Exam Constitutional: WD/WN, vitals as above Respiratory: normal respiratory effort, lungs clear to auscultation Cardiovascular: RRR, no murmur, no edema Gastrointestinal (Abdomen): normal bowel sounds, soft, nontender, no hepatosplenomegaly Skin: no rashes, warm and dry Psychiatric: A+Ox3, euthymic affect Results & Data Results & Data ([facility]) Vital Signs (Past 12 Hours) Vital Signs Temp Pulse Pulse Resp BP Pulse Ox O2 Del Method 05/23/22 08:09 36.9 C 94 H 20 119/64 94 Room Air 05/23/22 03:11 36.4 C L 78 16 129/73 94 Room Air 05/22/22 23:56 37.2 C 83 18 115/72 93 Room Air 05/22/22 23:26 83 PG Care Time/CCT Total # of Minutes Spent Total Time Spent with Patient: Total time spent is greater than 50% in coordination of care (as documented) at patient's floor/unit and/or counseling patient: Coding Level of Care Code 58948 SUB INP/OBS CARE 3/50MIN Diagnoses Hyperglycemia R73.9 Hypotension I95.9 Acute kidney injury superimposed on CKD N17.9; N18.9 Early satiety R68.81 Diabetic nephropathy associated with type 2 diabetes mellitus E11.21 GERD without esophagitis K21.9 Dyslipidemia E78.5 Hyperthyroidism E05.90 Major depressive disorder, recurrent severe without psychotic features F33.2
[2022-05-23 08:38] LABS: Calcium 9.1 mg/dl (8.5-10.1); Creatinine Clr Calc Pharmacy 26.8 ml/min; Est GFR (African American) 29.6 ml/min; Est GFR (Non-African American) 25.6 ml/min
[2022-05-23] MEDS: INSULIN ASPART PER UNIT SC SCH ×4 (08:41→21:50)
[2022-05-23] MEDS: LANTUS PER UNIT CHARGE SQ SCH ×2 (08:43→21:49)
[2022-05-23] MEDS ORDERED: CALCITRIOL 0.25 MCG CAPSULE PO SCH (09:00)
[2022-05-23] MEDS: CYANOCOBALAMIN (B-12) 500 MCG TABLET PO SCH (09:31)
[2022-05-23] MEDS: PANTOprazole 40 MG TAB PO SCH (09:31)
[2022-05-23] MEDS: VENLAFAXINE HCL XR 150 MG CAPXR PO SCH (09:31)
[2022-05-23] MEDS: ROSUVASTATIN CALCIUM 10 MG TAB PO SCH (09:32)
[2022-05-23] MEDS: methIMAzole 5 MG TABLET PO SCH (09:32)
[2022-05-23] MEDS: busPIRone 5 MG TAB PO SCH ×2 (09:32→21:44)
[2022-05-23] MEDS: HEPARIN SOD 5,000 UNIT/0.5 ML VIAL SQ SCH ×2 (09:33→21:44)
[2022-05-24 06:46] LABS: Calcium 9.2 mg/dl (8.5-10.1); Creatinine Clr Calc Pharmacy 26.9 ml/min; Est GFR (African American) 29.8 ml/min; Est GFR (Non-African American) 25.7 ml/min; Potassium 4.1 mmol/L (3.5-5.1)
[2022-05-24] MEDS ORDERED: FUROSEMIDE 20 MG TAB PO SCH (09:00)
[2022-05-24] MEDS: INSULIN ASPART PER UNIT SC SCH ×2 (09:22→12:49)
[2022-05-24] MEDS: LANTUS PER UNIT CHARGE SQ SCH (09:25)
[2022-05-24] MEDS: busPIRone 5 MG TAB PO SCH (10:01)
[2022-05-24] MEDS: VENLAFAXINE HCL XR 150 MG CAPXR PO SCH (10:03)
[2022-05-24] MEDS: PANTOprazole 40 MG TAB PO SCH (10:03)
[2022-05-24] MEDS: CYANOCOBALAMIN (B-12) 500 MCG TABLET PO SCH (10:04)
[2022-05-24] MEDS: methIMAzole 5 MG TABLET PO SCH (10:05)
[2022-05-24] MEDS: ROSUVASTATIN CALCIUM 10 MG TAB PO SCH (10:07)
[2022-05-24] MEDS: HEPARIN SOD 5,000 UNIT/0.5 ML VIAL SQ SCH (10:09)
--- NOTE | 2022-05-24 10:50 | Discharge Summary ---
Discharge Summary Date of Service May 24, 2022 Admission HPI Per Admitting Provider Marrero (Elaine) Sigifredo is a 71yo female with a PMHx significant for T2DM (A1c 7.2 in 03/2022), CKD3 (baseline Cr 1.8 - 2.3), nephrotic syndrome, iron deficiency anemia, GERD, HTN, HFpEF (EF 60-65% in 03/2022), dyslipidemia, hyperthyroidism, and depression who presented to [facility] ED on 05/21 for near- syncopal episode while in the shower, without LOC or head trauma. Patient does not check her blood sugar but family notes that she has been trying to do better but they have been elevated in the 500s.Denies polyphagia/polydipsia/polyuria, N/V, or abdominal pain. Of note patient reports that she has been eating/drinking progressively less over last several months due to "not feeling hungry". Patient reports getting full fast. Denies dysphagia/odynophagia or heartburn. Does take PPI but GERD is well-controlled. Per our records patient has lost 10-12kg in last 2 months. In the ED the patient was mildly hypertensive to 160/75, satting well on room air and afebrile. Labs significant for BSG 559 --> 577, Na 129 (corrected 137), Cl 90, AG 14, BUN 63/Cr 2.88 (baseline 1.8 - 2.3). Otherwise CBC/CMP/Mg/hsTrop/TSH WNL. Patient received NSS 1L bolus and Insulin NPH 10 units IV. Admission Exam Per Admitting Provider General: A&Ox3. NAD. Cooperative. Obese. HEENT: Atraumatic, normocephalic. Pulm: CTAB A&P. -wheezes, -rales, -rhonchi. Symmetrical chest rise. No increase work of breathing. No respiratory distress. Cardiac: RRR, -mrg. Radial pulses intact and symmetrical. No LE edema. Abdominal: soft, non-tender, non-distended, BS x 4 Skin: warm, dry, no rash Principal Dx & Hospital Course #1 = Principal Diagnosis (1) Hyperglycemia: BSG 559 on admission with improvement to 160s with insulin and IV fluids. Near-syncope and nausea/vomiting suspected partially secondary to hyperglycemia. Patient seems to have early satiety for last few months but worse over last few weeks, potentially worsened due to Ozempic, discontinued. Continue Farxiga. 70/30 insulin increased to 50u in AM, 30u in PM with PCP follow up. This was discussed with pharmacy and marketing producer as well. Also reviewed with patient's and daughter. Dietary modification discussed with daughter and who make all foods. (2) Hypotension: Significant orthostatic hypotension 05/22, improvement in symptoms with sitting and given 1L NSS with improvement in BP. Amlodipine decreased to 5mg daily on discharge. Hydralazine discontinued, defer to PCP regarding resuming however given symptomitic hypotension on admission will not resume at this time. Continue labetalol and furosemide (also see CHF). (3) Acute kidney injury superimposed on CKD: Cr 2.88 -> 1.92 this admission, with baseline 1.8 - 2.3. Suspect pre-renal injury due to vomiting as well as chronic poor PO intake, diuretic use. Received gentle IVF overnight 05/21. Resume home Lasix as above given return to baseline. (4) Early satiety: Chronic problem, progressive over last several months. Early satiety suspicious for gastroparesis likely 2/2 to diabetes. Consider gastric emptying study and outpatient GI eval - per PCP. Stopped Ozempic as this medication worsens appetite. (5) Diabetic nephropathy associated with type 2 diabetes mellitus: A1c 7.2 on 03/29/2022. History of nephrotic syndrome 2/2 to diabetic nephropathy. Patient follows with Dr. Paige. Patient has good urine output and is mentating well. Patient has f/u with Dr. Paige on 05/28. See DM2 above. (6) GERD without esophagitis: Continue home Protonix. (7) Dyslipidemia: Continue home statin. (8) Hyperthyroidism: Continue home Methimazole. (9) Major depressive disorder, recurrent severe without psychotic features: Continue home Effexor and Buspar. (10) Diastolic CHF: History of, on Lasix. Discussed low salt diet with patient and her family. They will also look at sodium in Meals on Wheels meals. Plan Dispo: PT and OT recommended home, patient ambulated well without assistance save for walker at times. Discharge Exam Constitutional WD/WN, vitals as above Respiratory normal respiratory effort, lungs clear to auscultation Cardiovascular RRR, no murmur, no edema Psychiatric A+Ox3, euthymic affect Updated Medication List Medication Instructions Recorded Confirmed Type acetaminophen 500 mg tablet 1,000 mg PO Q6H PRN Pain 06/19/21 05/21/22 History calcitriol 0.25 mcg capsule 0.25 mcg PO 3XWK #36 caps 02/21/22 05/21/22 Rx dapagliflozin 10 mg tablet 10 mg PO DAILY #90 tabs 03/06/22 05/21/22 Rx (Farxiga) labetalol 200 mg tablet 200 mg PO BID #180 tabs 03/06/22 05/21/22 Rx pantoprazole 40 mg tablet,delayed 40 mg PO QAM #90 tabs 03/09/22 05/21/22 Rx release venlafaxine 150 mg 150 mg PO QAM #90 caps 03/15/22 05/21/22 Rx capsule,extended release 24 hr (Effexor XR) ketorolac 0.5 % eye drops 1 drp OPB BID 03/28/22 05/21/22 History blood sugar diagnostic (Blood #100 ea 04/20/22 04/27/22 Rx Glucose Test strips) blood-glucose meter (Blood Glucose #1 ea 04/20/22 04/27/22 Rx Monitoring kit) lancets 33 gauge (BD Ultra Fine #100 ea 04/20/22 04/27/22 Rx Lancets) cyanocobalamin (vitamin B-12) 500 1,000 mcg PO QAM #60 tabs 04/23/22 05/21/22 Rx mcg tablet methimazole 10 mg tablet 5 mg PO QAM #90 tabs 04/23/22 05/21/22 Rx blood sugar diagnostic (Accu-Chek #100 ea 04/27/22 04/27/22 Rx Guide test strips) blood-glucose meter (Accu-Chek #1 ea 04/27/22 04/27/22 Rx Guide Glucose Meter) lancets (Accu-Chek Softclix #200 ea 04/27/22 04/27/22 Rx Lancets) Hospital Bed Homecare (Hospital #1 ea 05/04/22 05/08/22 Rx Bed) buspirone 5 mg tablet 5 mg PO BID #60 tabs 05/08/22 05/21/22 Rx furosemide 40 mg tablet 40 mg PO DAILY #30 tabs 05/08/22 05/21/22 Rx rosuvastatin 10 mg tablet 10 mg PO QAM #90 tabs 05/08/22 05/21/22 Rx amlodipine 5 mg tablet 5 mg PO DAILY #30 tabs 05/24/22 Rx insulin human U-100 NPH-regulr See Rx Instructions .Route 05/24/22 05/21/22 Rx 70-30 mix 100 unit/mL subcutaneous .COMPLEX #10 mL susp (Novolin 70/30 U-100 Insulin) Hospital Stay Data Consultations 05/21/22 21:28 ED Decision to Admit Stat Discharge Instructions Given to Patient (Per Discharging Provider) Admitted for kidney injury, dehydration, high blood sugars. Stopped some blood pressure meds because blood pressure was very low when you stood up (70s/40s). Meds: STOP hydralazine STOP Ozempic DECREASE amlodipine to 5 milligrams (1 tablet) daily INCREASE 70/30 insulin to 50 units before breakfast and 30 units before supper Recommendations: Try to get more protein in your diet (meats like meatloaf, chicken, tender beef) BE CAREFUL WITH SALT. Read the labels on food, and stick to less than 2000 milligrams of salt a day, and no more than about 600 milligrams of salt per meal. DO NOT USE SALT SHAKER. Labs: Creatinine on discharge 1.91. Blood sugar range on discharge 100-160. Blood pressure 152/79. Follow up closely with family doctor's office in the next week to go over blood pressures and sugars. Keep a log of your sugars for the doctor to review. Please return to ER if urgent medical concerns. Total Time Total Time Spent Total Time Spent (In Minutes): 35 min Coding Level of Care Code HOSP INP/OBS DISCH >30 MIN Diagnoses Hyperglycemia R73.9 Hypotension I95.9 Acute kidney injury superimposed on CKD N17.9; N18.9 Early satiety R68.81 Diabetic nephropathy associated with type 2 diabetes mellitus E11.21 GERD without esophagitis K21.9 Dyslipidemia E78.5 Hyperthyroidism E05.90 Major depressive disorder, recurrent severe without psychotic features F33.2 Diastolic CHF I50.30
== END 2022-05-24 15:43 | disposition home health service (06) | DRG 638 ==
LOC: ED 19:44 → SUATTDRO 22:44 → 2N 22:44

== ENCOUNTER 2023-03-15 16:53 | Inpatient (IN) ==
--- NOTE | 2023-03-15 17:10 | ED Triage Note ---
Date of Service March 15, 2023 Provider in Triage Author: Talisha Madrid History of Present Illness This patient was briefly evaluated while in triage. An abbreviated physical exam was performed. This patient is a 72-year-old Female who presents to the ED for evaluation of hyperglycemia, 207 in triage. Pt states had MRI yesterday for neurological deficits from a fall a few months ago. Pt states generalized weakness, shakiness. Physical Exam CONSTITUTIONAL: in no acute pain or distress, resting comfortably SKIN: pink, warm, dry CARDIAC: regular rate and rhythm RESPIRATORY: in no respiratory distress, lungs clear to auscultation ABDOMEN: no TTP MSK: 5/5 strength throughout NEURO: headache, with dx concussion, alert and oriented x 3 Initial orders for labs and / or imaging were placed and patient was placed in the waiting area until a bed is available. Please see further documentation for the full ED course.
[2023-03-15] MEDS ORDERED: OPTIRAY 320 125ml IV ONE (18:05)
[2023-03-15 18:12] LABS: Basophils # (auto) 0.06 K/uL (0.00-0.20); Basophils % (auto) 0.7 %; Eosinophils # (auto) 0.22 K/uL (0.00-0.50); Eosinophils % (auto) 2.5 %; Hematocrit (blood only) 32.9 % (37.0-47.0); Immature Granulocytes # (auto) 0.01 K/uL (0.01-0.20); Immature Granulocytes % (auto) 0.1 %; Lymphocytes # (auto) 2.01 K/uL (1.20-3.40); Lymphocytes % (auto) 22.4 %; Mean Corpuscular Hemoglobin 31.6 pg (25.0-34.0); Mean Corpuscular Hgb Conc 33.4 g/dL (32.0-36.0); Mean Corpuscular Volume 94.5 fL (80.0-100.0); Mean Platelet Volume 11.1 fL (9.4-12.4); Monocytes # (auto) 0.68 K/uL (0.11-0.59); Monocytes % (auto) 7.6 %; Neutrophils # (auto) 5.98 K/uL (1.40-6.50); Neutrophils % (auto) 66.7 %; Platelet Count 281 K/uL (130-400); RDW Coefficient of Variation 12.5 % (11.5-14.5); RDW Standard Deviation 43.6 fL (36.4-46.3); Red Blood Count 3.48 M/uL (4.20-5.40); White Blood Count 8.96 K/ul (4.8-10.8)
--- NOTE | 2023-03-15 18:19 | CT Scan Report ---
CT OF THE HEAD WITHOUT CONTRAST CLINICAL HISTORY: neuro deficit, acute stroke suspected COMPARISON STUDY: Head CT January 26, 2023. MRI of the brain performed earlier today. TECHNIQUE: Helical axial images of the head were obtained without IV contrast. Automated exposure con trol was utilized for the study. A dose lowering technique was utilized adhering to the principles o f ALARA. FINDINGS: This study is mildly compromised by motion artifact. White matter hypodensities are unchang ed and favor small vessel disease. No acute intracranial hemorrhage, midline shift or mass effect is present. The ventricular system is unremarkable. The basal cisterns are patent. No extra-axial collec tions are present. There are no findings to suggest acute dural sinus thrombosis or acute territorial infarct. No significant calvarial abnormalities are present. Small amount of fluid within the right mastoid air cells is unchanged. IMPRESSION: No acute intracranial findings. No change in appearance of the brain. ACT 112: Negative or not required by law. Electronically signed by: Walt Zuniga M.D. 03/15/2023 6:17 PM
--- NOTE | 2023-03-15 18:24 | CT Scan Report ---
CT ANGIOGRAPHY OF THE NECK WITH CONTRAST CLINICAL HISTORY: neuro deficit, acute stroke suspected COMPARISON STUDY: No previous studies for comparison. Technique: CT angiography of the carotid and vertebral arteries was obtained using Optiray and 3D rec onstruction on an independent workstation. NASCET criteria was utilized. Automated exposure control was utilized for the study. A dose lowering technique was utilized adhering to the principles of ALA RA. Findings: Visualized portions of the lung apices are unremarkable. There is no cervical lymphadenopat hy. There is no cervical spine fracture. The bilateral common carotid, cervical internal carotid and vertebral arteries are patent. There is minimal plaque within the proximal right internal carotid art joana without stenosis. There is no dissection or aneurysm within the neck. IMPRESSION: Unremarkable CTA of the neck. ACT 112: Negative or not required by law. Electronically signed by: Walt Zuniga M.D. 03/15/2023 6:22 PM
--- NOTE | 2023-03-15 18:26 | CT Scan Report ---
CTA ANGIOGRAPHY OF THE HEAD CLINICAL HISTORY: neuro deficit, acute stroke suspected COMPARISON STUDY: Head CT January 26, 2023. MRI of the brain performed earlier today. TECHNIQUE: Helical axial images of the head were obtained following uneventful intravenous administr ation of 119 cc of Optiray. Sagittal and coronal reconstructions were viewed as well as maximal inten sity projections on an independent 3-D workstation. Automated exposure control was utilized for the study. A dose lowering technique was utilized adhering to the principles of ALARA. CT DOSE: 1104.7 mGy.cm FINDINGS: No acute intracranial hemorrhage was identified on the unenhanced head CT which will be rep orted separately. Ventricular system is unremarkable. Basal cisterns are patent. There are no extra-a xial collections. A small amount of fluid within the right mastoid air cells remains unchanged. Moder ate plaque within the cavernous carotids is noted. There is no significant stenosis. The bilateral M1 , M2, A1 and A2 segments are patent. Posterior circulation is intact. There is no central vessel occl usion. There is no intracranial aneurysm. Major dural sinuses are patent. IMPRESSION: No large vessel occlusion. No intracranial aneurysm. ACT 112: Negative or not required by law. Electronically signed by: Walt Zuniga M.D. 03/15/2023 6:25 PM
--- NOTE | 2023-03-15 18:28 | Emergency Department Note ---
Impression & Plan TIA (transient ischemic attack), Weakness ED Provider Note NAME: CRISS LEGGETT AGE: 72 SEX: F : 1950 ARRIVES VIA: Walk-In INFORMANT: Patient, the patient's family member ED PROVIDER(S): Celio Ambrocio DO CHIEF COMPLAINT: Weakness HPI: The patient is a 72-year-old female who presented to the emergency department for an evaluation of generalized weakness. The patient states that she has been having ongoing symptoms over the course the last month. She had a fall recently where she struck her head. She is unsure if this was the cause for her symptoms. She initially presented through triage and had triage orders placed but the patient had an episode where she could not speak and appeared to have a facial droop. This aphasia is new for her and she was made a stroke alert immediately. She was sent for CT and CT angiography. She was brought back to room a 9 and the patient's symptoms resolved. This time the patient denies having any chest pain or neck pain. She denies having any nausea or vomiting. ROS: See above HPI for pertinent positives & negatives. A total of 10 systems reviewed and were otherwise negative. PAST MEDICAL HISTORY: See Below PAST SURGICAL HISTORY: See Below FAMILY HISTORY: See Below SOCIAL HISTORY: See Below HOME MEDICATIONS: See Below ALLERGIES: See Below VITALS: See Below PHYSICAL EXAMINATION: GENERAL: Patient is awake alert in no acute distress patient is resting comfortably and showing no signs of anxiety EYES: The conjunctivae are clear. The pupils are round and reactive. EARS, NOSE, MOUTH AND THROAT: The nose is without any evidence of any deformity. NECK: The neck is nontender and supple. RESPIRATORY: Normal respiratory effort is noted there is no evidence of wheezing rhonchi or rales CARDIOVASCULAR: Regular rate and rhythm noted there no murmurs rubs or gallops normal S1 normal S2. GASTROINTESTINAL: The abdomen is soft. Abdomen is nontender. MUSCULOSKELETAL/EXTREMITIES: There is no evidence of gross deformity full range of motion is noted in the hips and shoulders. SKIN: There is no obvious evidence of any rash. There are no petechiae, pallor or cyanosis noted. NEUROLOGIC: Patient is awake alert and oriented x3. The patient is able to hold each leg off the bed for greater than 5 seconds. Speech is clear. MEDICAL DECISION MAKING: The patient is a 72-year-old female who presented to the emergency department initially for generalized weakness. While she was here she had an episode that was thought to be consistent with a stroke. The patient was made a stroke alert and brought directly to CAT scan and then back to the emergency department. In the time that it took her to have this workup done her symptoms had completely resolved. The patient was accompanied by family member who describes the episode very clearly. There was clear dysarthria. This could be consistent with a TIA. Especially given the patient's history. I discussed the patient's laboratory and radiographic studies with her and her family over. Given her findings I discussed her condition with the on-call [facility] group. They have agreed to evaluate the patient in the emergency department for further management and disposition. The patient's condition was not discussed with the telestroke neurologist because the patient's symptoms resolved very quickly. She does not appear to have a large vessel occlusion. Triage Nursing notes reviewed. Prior medical records reviewed Vital Signs: reviewed and remarkable for elevated blood pressure. Differential diagnosis: Infection, dehydration, metabolic abnormality, hypo/hyperglycemia, electrolyte disturbance, anemia, hypoxia, cardiac sources, intracerebral event, toxicologic, neurologic, as well as other pathologies. ER treatment provided: See below Diagnostics interpreted by me: ECG: EKG was obtained in the emergency department. My interpretation is normal sinus rhythm at 68 bpm. LVH was noted by voltage criteria. There is no acute ST segment abnormalities noted. This was compared to a tracing from January 26, 2023. No changes were noted Cardiac Monitoring: An order was placed for continuous cardiac monitoring. The monitor shows a rate of 73 bpm with sinus rhythm Laboratory studies: As stated above and show below. Imaging studies: See below. Radiographic imaging was reviewed by myself Consultation(s): The case was discussed with Dr. Garcia who is on-call for the [facility] group. ED COURSE: Procedures: none Critical Care: I have personally spent greater than 35 minutes of critical care time in the direct management of this patient. This includes bedside care, interpretation of diagnostic studies, and testing, discussion with consultants, patient, and family members, and other required patient management activities. This 35 minutes is in excess of all separately billable procedures. Past Med/Surg History Medical History Vasovagal episode Diastolic CHF Recurrent UTI Morbid obesity with BMI of 40.0-44.9, adult Melanoma of nose Vitamin D deficiency Nephrotic syndrome GERD without esophagitis Arthritis CKD (chronic kidney disease) stage 3, GFR 30-59 ml/min Hypertension Major depressive disorder, recurrent severe without psychotic features Hyperthyroidism HNP (herniated nucleus pulposus), lumbar Dyslipidemia Diabetes mellitus type 2, uncontrolled IDDM Surgical History Status post trigger finger release History of repair of left rotator cuff History of repair of right rotator cuff History of colonoscopy History of melanoma excision History of tooth extraction all teeth removed History of bilateral cataract extraction S/P tonsillectomy S/P tubal ligation S/P cholecystectomy Family History Father Prostate cancer Diabetes Myocardial infarction Lung cancer Mother Diabetes Alzheimer disease Myocardial infarction Hypertension Brother COPD (chronic obstructive pulmonary disease) Other No family history of adverse response to anesthesia Denies family history of Ovarian cancer Breast cancer Colorectal cancer Social History Smoking Status: Never smoker Second Hand Exposure: No; Do You Dip or Chew Tobacco: No; Hx Alcohol Use: No Hx Substance Use: No Preferred Language: Yoruba Communication Ability: Effective Visual Impairment: No Limitations Hearing Ability: Normal Hide Salter Required: No Beliefs That Will Affect Care: None marital status: Current Living Situation: Family current occupational status: retired current occupation: retired - worked at [employer] and [employer] Feels Safe at Home: Yes Childhood Exposure to Second-Hand Smoke: No Diet: regular caffeine: Yes (Soda x 10 cans per day.) during the past year weight has: remained stable Dental Care, Regularly: No Physical Activity Frequency: Daily Physical Activity Frequency Comment: house chores Seatbelt Use: always Sunscreen Use: No Assistive Devices: Walker Allergies Allergies Allergy/AdvReac Type Severity Reaction Status Date / Time No Known Allergies Allergy Verified 02/26/23 12:56 Home Meds Home Medications Medication Instructions Recorded Confirmed acetaminophen 500 mg tablet 1,000 mg PO Q6H PRN Pain 06/19/21 03/15/23 ketorolac 0.5 % eye drops 1 drp OPB BID 03/28/22 03/15/23 furosemide 20 mg tablet 20 mg PO DAILY 04/20/23 12/08/23 albuterol sulfate 90 mcg/actuation 2 inh inhalation Q6H PRN Shortness 12/07/22 03/15/23 aerosol inhaler Of Breath Or Wheezing insulin human U-100 NPH-regulr 40 unit subcut BID 12/07/22 03/15/23 70-30 mix 100 unit/mL subcutaneous susp (Novolin 70/30 U-100 Insulin) buspirone 5 mg tablet 10 mg PO BID 01/26/23 03/15/23 Previous Rx's Medication Instructions Recorded cyanocobalamin (vitamin B-12) 500 1,000 mcg (2 x 500 mcg) PO QAM #60 04/23/22 mcg tablet tabs methimazole 10 mg tablet 5 mg (1/2 x 10 mg) PO QAM #90 tabs 04/23/22 lancets (Accu-Chek Softclix #200 ea 04/27/22 Lancets) calcitriol 0.25 mcg capsule 0.25 mcg PO 3XWK #36 caps 10/15/22 rosuvastatin 10 mg tablet 10 mg PO QAM #90 tabs 11/22/22 venlafaxine 150 mg 150 mg PO QAM #90 caps 01/07/23 capsule,extended release 24 hr (Effexor XR) pantoprazole 40 mg tablet,delayed 40 mg PO QAM #90 tabs 01/23/23 release amlodipine 5 mg tablet 10 mg (2 x 5 mg) PO DAILY #90 tabs 01/25/23 blood sugar diagnostic (Accu-Chek #100 ea 01/30/23 Guide test strips) labetalol 200 mg tablet 200 mg PO BID #180 tabs 02/11/23 blood-glucose meter (Accu-Chek #1 ea 02/13/23 Guide Glucose Meter) magnesium oxide 400 mg (241.3 mg 400 mg PO DAILY #30 tabs 02/15/23 magnesium) tablet lisinopril 20 mg tablet 20 mg PO DAILY #90 tabs 03/11/23 Results & Data (ED) Vital Signs Vital Signs - 24 hr 03/15/23 17:08 03/15/23 18:29 03/15/23 19:38 Temperature 36.6 C 36.6 C Temperature Source Temporal Artery Scan Oral Pulse Rate 68 64 Pulse Rate [Apical] 63 Pulse Rhythm Pulse Rhythm [Apical] Regular Pulse Strength [Apical] Normal Respiratory Rate 20 16 Respiratory Effort / Characteristics Non-Labored Non-Labored Spontaneous Respiratory Depth Normal Normal Respiratory Pattern Regular Blood Pressure 117/74 Blood Pressure [Right Arm] 189/92 H Blood Pressure Mean 88 Blood Pressure Mean [Right Arm] 124 Blood Pressure Position [Right Arm] Semi-fowlers Pulse Oximetry 97 98 Oxygen Delivery Method Room Air Room Air Sepsis Recent Fever Within 48 Hours No Sepsis New/Unexplained Change in Mental Status No Sepsis Action Taken by Nursing No Action Required 03/15/23 19:38 Temperature Temperature Source Pulse Rate 73 Pulse Rate [Apical] Pulse Rhythm Regular Pulse Rhythm [Apical] Pulse Strength [Apical] Respiratory Rate Respiratory Effort / Characteristics Respiratory Depth Respiratory Pattern Blood Pressure Blood Pressure [Right Arm] Blood Pressure Mean Blood Pressure Mean [Right Arm] Blood Pressure Position [Right Arm] Pulse Oximetry 97 Oxygen Delivery Method Room Air Sepsis Recent Fever Within 48 Hours Sepsis New/Unexplained Change in Mental Status Sepsis Action Taken by Snf Medications Current Medication List: was personally reviewed by me Laboratory Data Attestation: I reviewed the patient's lab results. 03/15/23 17:55 03/15/23 17:55 Lab Results 03/15/23 03/15/23 03/15/23 Range/Units 17:46 17:55 18:14 WBC 8.96 (4.8-10.8) K/ul RBC 3.48 L (4.20-5.40) M/uL Hgb 11.0 L (12.0-16.0) g/dl Hct 32.9 L (37.0-47.0) % MCV 94.5 (80.0-100.0) fL MCH 31.6 (25.0-34.0) pg MCHC 33.4 (32.0-36.0) g/dL RDW Std Deviation 43.6 (36.4-46.3) fL RDW Coeff of Emil 12.5 (11.5-14.5) % Plt Count 281 (130-400) K/uL MPV 11.1 (9.4-12.4) fL Immature Gran % (Auto) 0.1 % Neut % (Auto) 66.7 % Lymph % (Auto) 22.4 % Sharp % (Auto) 7.6 % Eos % (Auto) 2.5 % Baso % (Auto) 0.7 % Neut # (Auto) 5.98 (1.40-6.50) K/uL Lymph # (Auto) 2.01 (1.20-3.40) K/uL Sharp # (Auto) 0.68 H (0.11-0.59) K/uL Eos # (Auto) 0.22 (0.00-0.50) K/uL Baso # (Auto) 0.06 (0.00-0.20) K/uL Immature Gran # (Auto) 0.01 (0.01-0.20) K/uL PT 10.6 (9.0-12.0) Seconds INR 1.0 (0.9-1.1) APTT 23 (21-31) Seconds PTT Ratio 0.8 Sodium 137 (136-145) mmol/L Potassium 4.0 (3.5-5.1) mmol/L Chloride 101 (98-107) mmol/L Carbon Dioxide 26 (21-32) mmol/L Anion Gap 10 (3-11) BUN 37 H (6-23) mg/dl Creatinine 2.07 H (0.6-1.2) mg/dl Est Cr Clr Drug Dosing Not Reportable Est GFR ( Amer) 26.9 ml/min Est GFR (Non-Af Amer) 23.2 ml/min BUN/Creatinine Ratio 17.9 (10-20) Glucose 183 H (70-99(Fasting)) mg/dl POC Glucose 184 H (70-99) mg/dl Calcium 9.3 (8.6-10.3) mg/dl Magnesium 1.7 (1.7-2.4) mg/dl Total Bilirubin 0.4 (0.2-1.0) mg/dl AST 12 L (13-39) U/L ALT 9 (7-52) U/L Alkaline Phosphatase 84 (34-104) U/L Troponin I High Sens 22.5 H (0-14) pg/ml Total Protein 7.4 (6.0-8.3) gm/dl Albumin 3.6 (3.4-5.0) gm/dl Globulin 3.8 (2.5-4.0) gm/dl Albumin/Globulin Ratio 0.9 (0.9-2) Urine Color Urine Appearance (Clear) Urine pH (4.5-7.5) Ur Specific Levant (1.000-1.030) Urine Protein (Negative) Urine Glucose (UA) (Negative) Urine Ketones (Negative) Urine Blood (Negative) Urine Nitrite (Negative) Urine Bilirubin (Negative) Urine Urobilinogen (Negative) Ur Leukocyte Esterase (Negative) Urine WBC (Auto) (0-5) /hpf Urine RBC (Auto) (0-4) /hpf U Hyaline Cast (Auto) (0-5) /lpf U Epithel Cells (Auto) (0-5) /lpf Urine Bacteria (Auto) (Negative) Urine Yeast (None Prsent) Adenovirus (PCR) Not Detected (NotDetected) B. pertussis DNA (PCR) Not Detected (NotDetected) B.parapertussis DNA PCR Not Detected (NotDetected) C. pneumoniae DNA (PCR) Not Detected (NotDetected) Coronavirus OC43 (PCR) Not Detected (NotDetected) Coronavirus HKU1 (PCR) Not Detected (NotDetected) Coronavirus 229E (PCR) Not Detected (NotDetected) SARS-CoV-2 (PCR) Not Detected (NotDetected) Coronavirus NL63 (PCR) Not Detected (NotDetected) Human Metapneumovir PCR Not Detected (NotDetected) Influenza Type A (PCR) Not Detected (NotDetected) Influenza Type B (PCR) Not Detected (NotDetected) M. pneumoniae (PCR) Not Detected (NotDetected) Parainfluenza 1 (PCR) Not Detected (NotDetected) Parainfluenza 2 (PCR) Not Detected (NotDetected) Parainfluenza 3 (PCR) Not Detected (NotDetected) Parainfluenza 4 (PCR) Not Detected (NotDetected) RSV (PCR) Not Detected (NotDetected) Entero/Rhino (PCR) Not Detected (NotDetected) Blood Type O Positive Antibody Screen NEGATIVE 03/15/23 03/15/23 03/15/23 Range/Units 20:23 20:35 22:08 WBC (4.8-10.8) K/ul RBC (4.20-5.40) M/uL Hgb (12.0-16.0) g/dl Hct (37.0-47.0) % MCV (80.0-100.0) fL MCH (25.0-34.0) pg MCHC (32.0-36.0) g/dL RDW Std Deviation (36.4-46.3) fL RDW Coeff of Emil (11.5-14.5) % Plt Count (130-400) K/uL MPV (9.4-12.4) fL Immature Gran % (Auto) % Neut % (Auto) % Lymph % (Auto) % Sharp % (Auto) % Eos % (Auto) % Baso % (Auto) % Neut # (Auto) (1.40-6.50) K/uL Lymph # (Auto) (1.20-3.40) K/uL Sharp # (Auto) (0.11-0.59) K/uL Eos # (Auto) (0.00-0.50) K/uL Baso # (Auto) (0.00-0.20) K/uL Immature Gran # (Auto) (0.01-0.20) K/uL PT (9.0-12.0) Seconds INR (0.9-1.1) APTT (21-31) Seconds PTT Ratio Sodium (136-145) mmol/L Potassium (3.5-5.1) mmol/L Chloride (98-107) mmol/L Carbon Dioxide (21-32) mmol/L Anion Gap (3-11) BUN (6-23) mg/dl Creatinine (0.6-1.2) mg/dl Est Cr Clr Drug Dosing Est GFR ( Amer) ml/min Est GFR (Non-Af Amer) ml/min BUN/Creatinine Ratio (10-20) Glucose (70-99(Fasting)) mg/dl POC Glucose 137 H (70-99) mg/dl Calcium (8.6-10.3) mg/dl Magnesium (1.7-2.4) mg/dl Total Bilirubin (0.2-1.0) mg/dl AST (13-39) U/L ALT (7-52) U/L Alkaline Phosphatase (34-104) U/L Troponin I High Sens 19.6 H (0-14) pg/ml Total Protein (6.0-8.3) gm/dl Albumin (3.4-5.0) gm/dl Globulin (2.5-4.0) gm/dl Albumin/Globulin Ratio (0.9-2) Urine Color Yellow Urine Appearance Clear (Clear) Urine pH 6.5 (4.5-7.5) Ur Specific Levant > 1.045 H (1.000-1.030) Urine Protein 3+ H (Negative) Urine Glucose (UA) 1+ H (Negative) Urine Ketones Negative (Negative) Urine Blood Trace H (Negative) Urine Nitrite Negative (Negative) Urine Bilirubin Negative (Negative) Urine Urobilinogen Negative (Negative) Ur Leukocyte Esterase Negative (Negative) Urine WBC (Auto) 1-5 (0-5) /hpf Urine RBC (Auto) 0-4 (0-4) /hpf U Hyaline Cast (Auto) 5-10 H (0-5) /lpf U Epithel Cells (Auto) >30 H (0-5) /lpf Urine Bacteria (Auto) Negative (Negative) Urine Yeast Present A (None Prsent) Adenovirus (PCR) (NotDetected) B. pertussis DNA (PCR) (NotDetected) B.parapertussis DNA PCR (NotDetected) C. pneumoniae DNA (PCR) (NotDetected) Coronavirus OC43 (PCR) (NotDetected) Coronavirus HKU1 (PCR) (NotDetected) Coronavirus 229E (PCR) (NotDetected) SARS-CoV-2 (PCR) (NotDetected) Coronavirus NL63 (PCR) (NotDetected) Human Metapneumovir PCR (NotDetected) Influenza Type A (PCR) (NotDetected) Influenza Type B (PCR) (NotDetected) M. pneumoniae (PCR) (NotDetected) Parainfluenza 1 (PCR) (NotDetected) Parainfluenza 2 (PCR) (NotDetected) Parainfluenza 3 (PCR) (NotDetected) Parainfluenza 4 (PCR) (NotDetected) RSV (PCR) (NotDetected) Entero/Rhino (PCR) (NotDetected) Blood Type Antibody Screen Administered Medications Discontinued Medications Acetaminophen (Acetaminophen 325 Mg Tab) 650 mg PO NOW STA Stop: 03/15/23 20:31 Last Admin: 03/15/23 20:37 Dose: 650 mg Documented By: RANDY Aspirin (Aspirin Chew 324 Mg) Confirm Administered Dose 324 mg .ROUTE .STK-MED ONE Stop: 03/15/23 21:36 Last Admin: 03/15/23 21:48 Dose: Not Given Documented By: RANDY Aspirin (Aspirin Chew 324 Mg) 324 mg PO NOW STA Stop: 03/15/23 21:39 Last Admin: 03/15/23 21:47 Dose: 324 mg Documented By: RANDY Ioversol (Optiray 320 125ml) 119 ml IV ONCE ONE Stop: 03/15/23 18:06 Last Admin: 03/15/23 18:05 Dose: 119 ml Documented By: YOUSIF Imaging Data Attestation: I personally reviewed and interpreted this imaging study as follows: My Impression: 1 view chest x-ray was obtained in the emergency department. My interpretation is no free air or definite infiltrate, final report below. CT of the brain was obtained in the emergency department. My interpretation is no intracranial hemorrhage or mass effect, final report below. Radiologist's Impression: Chest X-Ray 03/15/23 17:10 XR chest 1V portable CLINICAL HISTORY: weakness COMPARISON STUDY: Chest radiograph January 26, 2023. FINDINGS: Lung volumes are normal. Lungs are clear. There is no pneumothorax or pleural effusion. There is mild cardiomegaly. Mediastinal contours are normal. There is no evidence for pulmonary edema. IMPRESSION: No acute cardiopulmonary findings. No significant change in appearance of the chest. ACT 112: Negative or not required by law. Electronically signed by: Walt Zuniga M.D. 03/15/2023 6:[address] 03/15/23 17:48 CT OF THE HEAD WITHOUT CONTRAST CLINICAL HISTORY: neuro deficit, acute stroke suspected COMPARISON STUDY: Head CT January 26, 2023. MRI of the brain performed earlier today. TECHNIQUE: Helical axial images of the head were obtained without IV contrast. Automated exposure control was utilized for the study. A dose lowering technique was utilized adhering to the principles of ALARA. FINDINGS: This study is mildly compromised by motion artifact. White matter hypodensities are unchanged and favor small vessel disease. No acute intracranial hemorrhage, midline shift or mass effect is present. The ventricular system is unremarkable. The basal cisterns are patent. No extra- axial collections are present. There are no findings to suggest acute dural sinus thrombosis or acute territorial infarct. No significant calvarial abnormalities are present. Small amount of fluid within the right mastoid air cells is unchanged. IMPRESSION: No acute intracranial findings. No change in appearance of the brain. ACT 112: Negative or not required by law. Electronically signed by: Walt Zuniga M.D. 03/15/2023 6:17 PM Head CTA 03/15/23 17:48 CTA ANGIOGRAPHY OF THE HEAD CLINICAL HISTORY: neuro deficit, acute stroke suspected COMPARISON STUDY: Head CT January 26, 2023. MRI of the brain performed earlier today. TECHNIQUE: Helical axial images of the head were obtained following uneventful intravenous administration of 119 cc of Optiray. Sagittal and coronal reconstructions were viewed as well as maximal intensity projections on an independent 3-D workstation. Automated exposure control was utilized for the study. A dose lowering technique was utilized adhering to the principles of ALARA. CT DOSE: 1104.7 mGy.cm FINDINGS: No acute intracranial hemorrhage was identified on the unenhanced head CT which will be reported separately. Ventricular system is unremarkable. Basal cisterns are patent. There are no extra-axial collections. A small amount of fluid within the right mastoid air cells remains unchanged. Moderate plaque within the cavernous carotids is noted. There is no significant stenosis. The bilateral M1, M2, A1 and A2 segments are patent. Posterior circulation is intact. There is no central vessel occlusion. There is no intracranial aneurysm. Major dural sinuses are patent. IMPRESSION: No large vessel occlusion. No intracranial aneurysm. ACT 112: Negative or not required by law. Electronically signed by: Walt Zuniga M.D. 03/15/2023 6:25 PM Neck CTA 03/15/23 17:48 CT ANGIOGRAPHY OF THE NECK WITH CONTRAST CLINICAL HISTORY: neuro deficit, acute stroke suspected COMPARISON STUDY: No previous studies for comparison. Technique: CT angiography of the carotid and vertebral arteries was obtained using Optiray and 3D reconstruction on an independent workstation. NASCET criteria was utilized. Automated exposure control was utilized for the study. A dose lowering technique was utilized adhering to the principles of ALARA. Findings: Visualized portions of the lung apices are unremarkable. There is no cervical lymphadenopathy. There is no cervical spine fracture. The bilateral common carotid, cervical internal carotid and vertebral arteries are patent. There is minimal plaque within the proximal right internal carotid artery without stenosis. There is no dissection or aneurysm within the neck. IMPRESSION: Unremarkable CTA of the neck. ACT 112: Negative or not required by law. Electronically signed by: Walt Zuniga M.D. 03/15/2023 6:22 PM Discharge Plan Visit Data Chief Complaint: Hyperglycemia Stated Complaint: Hyperglycemia ED Provider: Celio Ambrocio Discharge Problem: TIA (transient ischemic attack), Weakness Patient Disposition: Being Evaluated by Hospitalist Forms Stand Alone Forms: My [facility] Prescriptions Prescriptions: No Action calcitriol 0.25 mcg capsule 0.25 mcg PO 3XWK Qty: 36 3RF Rx Instructions: Saturday, Saturday, Saturday in the morning rosuvastatin 10 mg tablet 10 mg PO QAM Qty: 90 1RF venlafaxine [Effexor XR] 150 mg capsule,extended release 24hr 150 mg PO QAM Qty: 90 1RF pantoprazole 40 mg tablet,delayed release (DR/EC) 40 mg PO QAM Qty: 90 1RF (DME) Accu-Chek Guide test strips Strip See Rx Instructions .Route Qty: 100 5RF Rx Instructions: Test blood sugar TID labetalol 200 mg tablet 200 mg PO BID Qty: 180 3RF magnesium oxide 400 mg (241.3 mg magnesium) tablet 400 mg PO DAILY Qty: 30 1RF lisinopril 20 mg tablet 20 mg PO DAILY Qty: 90 3RF (DME) lancets [Accu-Chek Softclix Lancets] Misc See Rx Instructions .Route Qty: 200 3RF Rx Instructions: As directed; BS TID furosemide 20 mg tablet 20 mg PO DAILY (DME) blood-glucose meter [Accu-Chek Guide Glucose Meter] Misc See Rx Instructions .Route Qty: 1 0RF Rx Instructions: As directed; BS TID amlodipine 5 mg tablet 10 mg PO DAILY Qty: 90 1RF Hold Instructions: Resume on 02/05/23. HOLD until your doctor tells you to restart. acetaminophen 500 mg Tablet 1,000 mg PO Q6H PRN (Reason: Pain) ketorolac 0.5 % drops 1 drp OPB BID cyanocobalamin (vitamin B-12) 500 mcg Tablet 1,000 mcg PO QAM Qty: 60 0RF Rx Instructions: OTC methimazole 10 mg tablet 5 mg PO QAM Qty: 90 1RF Novolin 70/30 U-100 Insulin 100 unit/mL (70-30) suspension 40 unit subcut BID albuterol sulfate 90 mcg/actuation HFA aerosol inhaler 2 inh inhalation Q6H PRN (Reason: Shortness Of Breath Or Wheezing) Rx Instructions: PER PT "USUALLY USE BID, EVERY DAY, THEN PRN". buspirone 5 mg tablet 10 mg PO BID Referrals Referrals: Ramirez Villela CRNP [Primary Care Provider] -
[2023-03-15 18:30] LABS: Alanine Aminotransferase 9 U/L (7-52); Albumin Globulin Ratio 0.9 (0.9-2); Albumin Level 3.6 gm/dl (3.4-5.0); Alkaline Phosphatase 84 U/L (34-104); Anion Gap 10 (3-11); Aspartate Aminotransferase 12 U/L (13-39); BUN Creatinine Ratio 17.9 (10-20); Bilirubin,Total 0.4 mg/dl (0.2-1.0); Blood Urea Nitrogen 37 mg/dl (6-23); Calcium 9.3 mg/dl (8.6-10.3); Carbon Dioxide 26 mmol/L (21-32); Chloride 101 mmol/L (98-107); Est GFR (African American) 26.9 ml/min; Est GFR (Non-African American) 23.2 ml/min; Globulin 3.8 gm/dl (2.5-4.0); Glucose 183 mg/dl (70-99(Fasting)); Magnesium 1.7 mg/dl (1.7-2.4); Sodium 137 mmol/L (136-145); Total Protein 7.4 gm/dl (6.0-8.3)
[2023-03-15 18:37] LABS: Troponin I High Sensitivity 22.5 pg/ml (0-14)
--- NOTE | 2023-03-15 18:39 | XRay Report ---
XR chest 1V portable CLINICAL HISTORY: weakness COMPARISON STUDY: Chest radiograph January 26, 2023. FINDINGS: Lung volumes are normal. Lungs are clear. There is no pneumothorax or pleural effusion. The re is mild cardiomegaly. Mediastinal contours are normal. There is no evidence for pulmonary edema. IMPRESSION: No acute cardiopulmonary findings. No significant change in appearance of the chest. ACT 112: Negative or not required by law. Electronically signed by: Walt Zuniga M.D. 03/15/2023 6:36 PM
[2023-03-15 18:42] LABS: Partial Thromboplastin Ratio 0.8; Partial Thromboplastin Time 23 Seconds (21-31); Prothrombin Time 10.6 Seconds (9.0-12.0)
[2023-03-15 19:45] LABS: Adenovirus PCR Not Detected (NotDetected); Bordetella parapertussis PCR Not Detected (NotDetected); Bordetella pertussis PCR Not Detected (NotDetected); Chlamydia pneumoniae PCR Not Detected (NotDetected); Coronavirus 229E PCR Not Detected (NotDetected); Coronavirus CoV-2 (COVID19)PCR Not Detected (NotDetected); Coronavirus HKU1 PCR Not Detected (NotDetected); Coronavirus NL63 PCR Not Detected (NotDetected); Coronavirus OC43PCR Not Detected (NotDetected); Human Metapneumovirus PCR Not Detected (NotDetected); Influenza A PCR Not Detected (NotDetected); Influenza B PCR Not Detected (NotDetected); Mycoplasma pneumoniae PCR Not Detected (NotDetected); Parainfluenza Virus 1 PCR Not Detected (NotDetected); Parainfluenza Virus 2 PCR Not Detected (NotDetected); Parainfluenza Virus 3 PCR Not Detected (NotDetected); Parainfluenza Virus 4 PCR Not Detected (NotDetected); Respiratory Syncytial VirusPCR Not Detected (NotDetected); Rhinovirus/Enterovirus PCR Not Detected (NotDetected)
[2023-03-15] MEDS ORDERED: ACETAMINOPHEN 325 MG TAB PO STA (20:30)
--- NOTE | 2023-03-15 20:43 | History & Physical Report ---
Date of Service March 15, 2023 Assessment & Plan (1) Stroke-like symptoms: Plan: Patient came in for generalized weakness, word finding difficulty, headaches, and blurry vision x 2 months Symptoms arose 2 months ago after patient sustained a ground-level fall when t ripping up a step; no LOC; not on blood thinners; hit right forehead on ground No hx of strokes No ambulatory assist devices Brain MRI revealed no acute intracranial findings, but noted hyperintense foci suggestive of small vessel disease and fluid in the inferior right mastoid air cells BioFire negative Patient was a stroke alert in the ED when she developed facial droop with aphasia; no tele-stroke consult as all symptoms had resolved within 5-10min Head CT was performed after this, and reported no acute intracranial findings Head/neck CTA were unremarkable Echo ordered, pending Keep n.p.o. for now ASA 324mg given in the ED Dysphagia screen Continuous telemetry monitoring Stroke scale QS Neurochecks q4h Fall precautions Permissive hypertension; treat BP if SBP>220 or DBP>120 PT/OT consulted A.m. CBC, BMP, mag, fasting lipid panel, A1c, troponin (2) KEEGAN (acute kidney injury): Plan: Acute on chronic; patient with CKD stage III BUN 37, creatinine 2.07 (baseline 1.63), EGFR 23.2 on arrival Avoid nephrotoxic agents LR at 125mL/hr x 2 (3) Hypertension: Plan: Continue labetalol, amlodipine Hold lisinopril in the setting of KEEGAN Permissive HTN in the setting of strokelike symptoms (as above) (4) Diabetes mellitus type 2, uncontrolled: Plan: Last A1c 11.3% on 01/27/2023 Glucose 183 on arrival Patient normally takes Lantus 40u BID Will switch to Lantus 22u BID while inpatient Keep n.p.o. for now with BSG checks q6h BSG ACHS SSI; target BSG range 110-140mg/dL, CF 20, carb ratio 8 Advance to T2DM diet once patient passes dysphagia screen Adjust regimen as needed Pharmacy glycemic consult AM A1c (5) Hyperthyroidism: Plan: TSH ordered, pending Continue methimazole (6) Elevated troponin: Plan: Troponin 22.5 --> 19.6 Clinically, patient denies chest pain EKG shows NSR at 68 bpm; QTc 435 Check a.m. troponin (7) Major depressive disorder, recurrent severe without psychotic features: Plan: Patient's (Dre) in November 2022 Continue venlafaxine Plan Disposition: Admit to PCU telemetry DNR/DNI Keep n.p.o. for now, then advance to T2DM diet as tolerated VTE PPx: SCDs (hold chemical DVT PPx for now) History of Present Illness Chief Complaint: Strokelike symptoms Primary Care Provider: LISA Calle Elida is a pleasant 72-year-old female with PMH of anxiety, CKD stage III, T2DM, GERD, HTN, dyslipidemia, hypothyroidism, and depression. She presented for a feeling of generalized weakness (at home glucose monitor read 397mg/dL this morning). She also reports that she fell a couple months ago and hit the right side of her forehead. Since then she has noticed that she has been having headaches, word finding difficulties, occasional difficulty talking, difficulty driving due to blurry vision, and the symptoms are getting worse. Patient does not know exactly how she fell, however, she notes that she struck her head; no LOC; no blood thinners; ground-level fall. Patient is not using ambulation device at baseline. Patient reports that she tripped on a step between the living room in the kitchen; her shoe caught the step and she fell forward. While in the ED, the patient was a stroke alert during an episode of facial droop and aphasia that lasted approximately 5-10min. She was sent back for additional CT and CT angiography testing. Patient was A&O x 3 following the stroke alert. She reports that she did not lose consciousness, but could not speak. She denies numbness or tingling in the face. She denies having any one- sided deficits at the time. Patient took all of her morning medications. She denies recent changes to medication. She lives with her daughter, Lorrie. Her (Dre) in November 2022. She has not had any recent eye doctor appointments; and she has no history of wearing glasses or contacts for blurry vision. Patient is hypertensive at 189/92 at time of admission. ED course: Acetaminophen 650 mg p.o. IVF ROS: Patient endorses blurry vision, KOHLER, dizziness, confusion, difficulty with word finding, and tremor/shaking. Patient denies memory loss, changes in hearing/smell/taste, fever, chills, chest pain, pleuritic CP, SOB, abdominal pain, N/V/D, urinary s/s, blood in the urine/stool, burning with urination, or numbness/tingling going down legs. Patient denies prior hx of CVA, [place], DVT/PE, cancer Allergies Allergy/AdvReac Type Severity Reaction Status Date / Time No Known Allergies Allergy Verified 02/26/23 12:56 Home Medications Medication Instructions Recorded Confirmed Type acetaminophen 500 mg tablet 1,000 mg PO Q6H PRN Pain 06/19/21 03/15/23 History ketorolac 0.5 % eye drops 1 drp OPB BID 03/28/22 03/15/23 History cyanocobalamin (vitamin B-12) 500 1,000 mcg (2 x 500 mcg) PO QAM #60 04/23/22 03/15/23 Rx mcg tablet tabs methimazole 10 mg tablet 5 mg (1/2 x 10 mg) PO QAM #90 tabs 04/23/22 03/15/23 Rx lancets (Accu-Chek Softclix #200 ea 04/27/22 02/26/23 Rx Lancets) furosemide 20 mg tablet 20 mg PO DAILY 07/26/22 03/15/23 History calcitriol 0.25 mcg capsule 0.25 mcg PO 3XWK #36 caps 10/15/22 03/15/23 Rx rosuvastatin 10 mg tablet 10 mg PO QAM #90 tabs 11/22/22 03/15/23 Rx albuterol sulfate 90 mcg/actuation 2 inh inhalation Q6H PRN Shortness 12/07/22 03/15/23 History aerosol inhaler Of Breath Or Wheezing insulin human U-100 NPH-regulr 40 unit subcut BID 12/07/22 03/15/23 History 70-30 mix 100 unit/mL subcutaneous susp (Novolin 70/30 U-100 Insulin) venlafaxine 150 mg 150 mg PO QAM #90 caps 01/07/23 03/15/23 Rx capsule,extended release 24 hr (Effexor XR) pantoprazole 40 mg tablet,delayed 40 mg PO QAM #90 tabs 01/23/23 03/15/23 Rx release amlodipine 5 mg tablet 10 mg (2 x 5 mg) PO DAILY #90 tabs 01/25/23 03/15/23 Rx buspirone 5 mg tablet 10 mg PO BID 01/26/23 03/15/23 History blood sugar diagnostic (Accu-Chek #100 ea 01/30/23 02/26/23 Rx Guide test strips) labetalol 200 mg tablet 200 mg PO BID #180 tabs 02/11/23 03/15/23 Rx blood-glucose meter (Accu-Chek #1 ea 02/13/23 02/26/23 Rx Guide Glucose Meter) magnesium oxide 400 mg (241.3 mg 400 mg PO DAILY #30 tabs 02/15/23 03/15/23 Rx magnesium) tablet lisinopril 20 mg tablet 20 mg PO DAILY #90 tabs 03/11/23 03/15/23 Rx Past Med/Surg History Medical History Vasovagal episode Diastolic CHF Recurrent UTI Morbid obesity with BMI of 40.0-44.9, adult Melanoma of nose Vitamin D deficiency Nephrotic syndrome GERD without esophagitis Arthritis CKD (chronic kidney disease) stage 3, GFR 30-59 ml/min Hypertension Major depressive disorder, recurrent severe without psychotic features Hyperthyroidism HNP (herniated nucleus pulposus), lumbar Dyslipidemia Diabetes mellitus type 2, uncontrolled IDDM Surgical History Status post trigger finger release History of repair of left rotator cuff History of repair of right rotator cuff History of colonoscopy History of melanoma excision History of tooth extraction all teeth removed History of bilateral cataract extraction S/P tonsillectomy S/P tubal ligation S/P cholecystectomy Family History Father Prostate cancer Diabetes Myocardial infarction Lung cancer Mother Diabetes Alzheimer disease Myocardial infarction Hypertension Brother COPD (chronic obstructive pulmonary disease) Other No family history of adverse response to anesthesia Denies family history of Ovarian cancer Breast cancer Colorectal cancer Social History Smoking Status: Never smoker Second Hand Exposure: No; Do You Dip or Chew Tobacco: No; Hx Alcohol Use: No Hx Substance Use: No Preferred Language: Indonesian Communication Ability: Effective Communication Ability Comment: Reports difficulty reading now r/t dizziness Visual Impairment: No Limitations Hearing Ability: Normal Audience Development Manager Required: No Beliefs That Will Affect Care: None marital status: Current Living Situation: Family Current Living Situation Comment: Lives with daughterLorrie current occupational status: retired current occupation: retired - worked at [employer] Other Information That Helps Us Care for You: No Feels Safe at Home: Yes Safety Concerns: Feels Safe At This Time Childhood Exposure to Second-Hand Smoke: No Diet: regular caffeine: Yes (Soda x 10 cans per day.) during the past year weight has: remained stable Dental Care, Regularly: No Physical Activity Frequency: Daily Physical Activity Frequency Comment: house chores Seatbelt Use: always Sunscreen Use: No Assistive Devices: Denture - Upper Review of Systems Review of Systems: See HPI above Physical Exam Physical Exam: General: no acute distress; pleasant affect; non-toxic appearing; trembling, but reports she is not cold; well-nourished; cooperative HEENT: normocephalic, atraumatic; no scleral icterus; PERRLA w/ EOMs intact; moist mucus membrane; vision and hearing grossly intact; patient demonstrates ability to smile, frown, raise eyebrows, and protrude tongue without diff iculty/deficits Neck: supple; no JVD; no lymphadenopathy; trachea midline; shrugging and rotating head against resistance does not elicit pain Skin: warm, dry without signs of tenting; no cyanosis; no rashes, bruising, lesions, or erythema noted CV: chest wall NTP; RRR; S1/S2 normal; no murmurs/rubs/gallops; pulses intact and symmetric at radial, DP, and PT Lungs: no acute respiratory distress; symmetrical chest wall expansion; clear breath sounds across all lung cheng w/o adventitious sounds; no wheezing ABD: Soft, NTP; BS present; no rebound/guarding; no distention MSK: no tics or fasciculations; no edema noted in the LEs b/l, nonerythematous; full active ROM of UEs/LEs; +5/5 associate media planner strength bilaterally; 5/5 strength in the UEs/LEs bilaterally; negative pronator drift Neuro: A&Ox3; normal mood and affect; fluent speech; no focal deficits; patient reports intact in symmetric sensation to soft touch in the face, UEs, and LEs Results & Data Results & Data Vital Signs (Past 12 Hours) Vital Signs Temp Pulse Pulse Resp BP BP Pulse Ox 03/15/23 19:38 73 97 03/15/23 19:38 36.6 C 63 16 189/92 H 98 03/15/23 18:29 64 03/15/23 17:08 36.6 C 68 20 117/74 97 O2 Del Method 03/15/23 19:38 Room Air 03/15/23 19:38 Room Air 03/15/23 18:29 03/15/23 17:08 Room Air Laboratory Results Abnormal lab results 03/15/23 03/15/23 Range/Units 17:46 17:55 RBC 3.48 L (4.20-5.40) M/uL Hgb 11.0 L (12.0-16.0) g/dl Hct 32.9 L (37.0-47.0) % Dodge # (Auto) 0.68 H (0.11-0.59) K/uL BUN 37 H (6-23) mg/dl Creatinine 2.07 H (0.6-1.2) mg/dl Glucose 183 H (70-99(Fasting)) mg/dl POC Glucose 184 H (70-99) mg/dl AST 12 L (13-39) U/L Troponin I High Sens 22.5 H (0-14) pg/ml Diagnostic Findings Chest X-Ray 03/15/23 17:10 XR chest 1V portable CLINICAL HISTORY: weakness COMPARISON STUDY: Chest radiograph January 26, 2023. FINDINGS: Lung volumes are normal. Lungs are clear. There is no pneumothorax or pleural effusion. There is mild cardiomegaly. Mediastinal contours are normal. There is no evidence for pulmonary edema. IMPRESSION: No acute cardiopulmonary findings. No significant change in appearance of the chest. ACT 112: Negative or not required by law. Electronically signed by: Walt Zuniga M.D. 03/15/2023 6:[address] 03/15/23 17:48 CT OF THE HEAD WITHOUT CONTRAST CLINICAL HISTORY: neuro deficit, acute stroke suspected COMPARISON STUDY: Head CT January 26, 2023. MRI of the brain performed earlier today. TECHNIQUE: Helical axial images of the head were obtained without IV contrast. Automated exposure control was utilized for the study. A dose lowering technique was utilized adhering to the principles of ALARA. FINDINGS: This study is mildly compromised by motion artifact. White matter hypodensities are unchanged and favor small vessel disease. No acute intracranial hemorrhage, midline shift or mass effect is present. The ventricular system is unremarkable. The basal cisterns are patent. No extra-axial collections are present. There are no findings to suggest acute dural sinus thrombosis or acute territorial infarct. No significant calvarial abnormalities are present. Small amount of fluid within the right mastoid air cells is unchanged. IMPRESSION: No acute intracranial findings. No change in appearance of the brain. ACT 112: Negative or not required by law. Electronically signed by: Walt Zuniga M.D. 03/15/2023 6:17 PM Head CTA 03/15/23 17:48 CTA ANGIOGRAPHY OF THE HEAD CLINICAL HISTORY: neuro deficit, acute stroke suspected COMPARISON STUDY: Head CT January 26, 2023. MRI of the brain performed earlier today. TECHNIQUE: Helical axial images of the head were obtained following uneventful intravenous administration of 119 cc of Optiray. Sagittal and coronal reconstructions were viewed as well as maximal intensity projections on an independent 3-D workstation. Automated exposure control was utilized for the study. A dose lowering technique was utilized adhering to the principles of ALARA. CT DOSE: 1104.7 mGy.cm FINDINGS: No acute intracranial hemorrhage was identified on the unenhanced head CT which will be reported separately. Ventricular system is unremarkable. Basal cisterns are patent. There are no extra-axial collections. A small amount of fluid within the right mastoid air cells remains unchanged. Moderate plaque within the cavernous carotids is noted. There is no significant stenosis. The bilateral M1, M2, A1 and A2 segments are patent. Posterior circulation is intact. There is no central vessel occlusion. There is no intracranial aneurysm. Major dural sinuses are patent. IMPRESSION: No large vessel occlusion. No intracranial aneurysm. ACT 112: Negative or not required by law. Electronically signed by: Walt Zuniag M.D. 03/15/2023 6:25 PM Neck CTA 03/15/23 17:48 CT ANGIOGRAPHY OF THE NECK WITH CONTRAST CLINICAL HISTORY: neuro deficit, acute stroke suspected COMPARISON STUDY: No previous studies for comparison. Technique: CT angiography of the carotid and vertebral arteries was obtained using Optiray and 3D reconstruction on an independent workstation. NASCET criteria was utilized. Automated exposure control was utilized for the study. A dose lowering technique was utilized adhering to the principles of ALARA. Findings: Visualized portions of the lung apices are unremarkable. There is no cervical lymphadenopathy. There is no cervical spine fracture. The bilateral common carotid, cervical internal carotid and vertebral arteries are patent. There is minimal plaque within the proximal right internal carotid artery without stenosis. There is no dissection or aneurysm within the neck. IMPRESSION: Unremarkable CTA of the neck. ACT 112: Negative or not required by law. Electronically signed by: Walt Zuniga M.D. 03/15/2023 6:22 PM Code Status & VTE Plan Code Status DNR/DNI VTE Prophylaxis Plan VTE Prophylaxis will be ordered: Yes Supervising Physician Co-Signing Physician Notes Attending addendum: I have physically seen this patient, have supervised the TAHIRA's activities, and agree with the H&P unless as otherwise noted. Assessment and Plan: Strokelike symptoms- The patient will be admitted to telemetry for serial cardiac enzymes, serial EKG's, cardiac rhythm monitoring and a 2-D echocardiogram with Dopplers. Symptoms of generalized weakness, word finding difficulty, headaches and blurry vision intermittently over 2 months Symptoms initially began post ground-level fall with right forehead trauma Initial testing performed by ED was brain MRI which was negative other than small vessel disease CT head was negative CTA head neck was negative BioFire testing negative Aspirin 324 mg given in ED Stroke without tPA order set Neurochecks every 4 hours Consult PT/OT/speech Check a fasting lipid panel and hemoglobin A1c Elevated troponin- Troponin 22.5 on admission Continue labetalol and amlodipine Likely supply demand mismatch, workup as above Acute kidney injury superimposed on CKD- Creatinine 2.07, with base 1.63 Hold lisinopril Gentle IV fluids as noted Recheck laboratories in a.m. Remaining orders and notations as noted PG Care Time/CCT Total # of Minutes Spent Total Time Spent with Patient: Total time spent is greater than 50% in coordination of care (as documented) at patient's floor/unit and/or counseling patient: [place] [address] INT INP/OBS CARE 3/75MIN Patient Type New Medical Decision Making High Complexity Diagnoses Stroke-like symptoms R29.90 KEEGAN (acute kidney injury) N17.9 Hypertension I10 Hypertension type: unspecified Uncontrolled type 2 diabetes mellitus with hyperglycemia E11.65 Glycemic state: with hyperglycemia Hyperthyroidism E05.90 Elevated troponin R79.89 Major depressive disorder, recurrent severe without psychotic features F33.2 (3) Hypertension Hypertension type: unspecified Qualified Code(s): I10 - Essential (primary) hypertension (4) Diabetes mellitus type 2, uncontrolled Glycemic state: with hyperglycemia Qualified Code(s): E11.65 - Type 2 diabetes mellitus with hyperglycemia
[2023-03-15 20:53] LABS: Appearance Urine Clear (Clear); Bacteria Urine Automated Negative (Negative); Bilirubin Urine Negative (Negative); Blood Urine Trace (Negative); Color Urine Yellow; Epithelial Cell Urine Auto >30 /lpf (0-5); Glucose Urine UA 1+ (Negative); Ketones Urine Negative (Negative); Leukocyte Esterase Urine Negative (Negative); Nitrite Urine Negative (Negative); Protein Urine 3+ (Negative); Specific Gravity Urine > 1.045 (1.000-1.030); Urobilinogen Urine Negative (Negative); pH Urine 6.5 (4.5-7.5)
[2023-03-15 21:10] LABS: RBC Urine Automated 0-4 /hpf (0-4)
[2023-03-15 21:12] LABS: Troponin I High Sensitivity 19.6 pg/ml (0-14)
[2023-03-15] MEDS ORDERED: ASPIRIN CHEW 324 MG ONE (21:35)
[2023-03-15] MEDS ORDERED: ASPIRIN CHEW 324 MG PO STA (21:38)
[2023-03-15] MEDS ORDERED: busPIRone 5 MG TAB PO ONE (22:18)
[2023-03-15 22:53] LABS: Thyroid Stimulating Hormone 1.347 uIu/ml (0.300-4.500)
[2023-03-16] MEDS ORDERED: DEXTROSE 50% 50 ML SYRINGE IV PRN (01:12)
[2023-03-16] MEDS ORDERED: GLUCOSE 10 TAB/TUBE PO PRN (01:12)
[2023-03-16] MEDS ORDERED: PHARMACY GLYCEMIC MGMT CONSULT PRN (01:12)
[2023-03-16] MEDS ORDERED: CARBOHYDRATES FOR HYPOGLYCEMIA PO PRN (01:12)
[2023-03-16] MEDS ORDERED: PHARMACIST DISCHARGE MED REC CONSULT PRN (01:12)
[2023-03-16] MEDS ORDERED: GLUCAGON FOR INJ 1 MG VIAL SQ PRN (01:12)
[2023-03-16] MEDS ORDERED: ALBUTEROL HFA 8 GM INHALER INH PRN (01:12)
[2023-03-16] MEDS ORDERED: GLUCOSE 40% GEL 15 GM TUBE PO PRN (01:12)
[2023-03-16] MEDS: LACTATED RINGER'S 1,000 ML IV SCH ×2 (01:37→09:41)
[2023-03-16] MEDS ORDERED: PNEUMOCOCCAL VACCINE (PCV20) 20-VAL CONJ-DIP CRM/PF 0.5 ML SYR IM ONE (02:00)
[2023-03-16] MEDS ORDERED: INSULIN ASPART PER UNIT CHARGE SC SCH (06:00)
[2023-03-16 06:27] LABS: Basophils # (auto) 0.07 K/uL (0.00-0.20); Basophils % (auto) 0.8 %; Eosinophils # (auto) 0.18 K/uL (0.00-0.50); Hematocrit (blood only) 28.8 % (37.0-47.0); Hemoglobin 9.7 g/dl (12.0-16.0); Immature Granulocytes # (auto) 0.03 K/uL (0.01-0.20); Immature Granulocytes % (auto) 0.3 %; Lymphocytes # (auto) 2.36 K/uL (1.20-3.40); Lymphocytes % (auto) 25.8 %; Mean Corpuscular Hemoglobin 31.3 pg (25.0-34.0); Mean Corpuscular Hgb Conc 33.7 g/dL (32.0-36.0); Mean Corpuscular Volume 92.9 fL (80.0-100.0); Mean Platelet Volume 11.3 fL (9.4-12.4); Monocytes # (auto) 0.67 K/uL (0.11-0.59); Monocytes % (auto) 7.3 %; Neutrophils # (auto) 5.83 K/uL (1.40-6.50); Neutrophils % (auto) 63.8 %; Platelet Count 241 K/uL (130-400); RDW Coefficient of Variation 12.7 % (11.5-14.5); White Blood Count 9.14 K/ul (4.8-10.8)
[2023-03-16 06:46] LABS: BUN Creatinine Ratio 18.1 (10-20); Calcium 8.7 mg/dl (8.6-10.3); Chol HDL Ratio 2.8 (0-5); Creatinine Clr Calc Pharmacy 29.2 ml/min; Est GFR (African American) 33.8 ml/min; Est GFR (Non-African American) 29.2 ml/min; Magnesium 1.6 mg/dl (1.7-2.4); Potassium 4.1 mmol/L (3.5-5.1)
[2023-03-16 06:52] LABS: Troponin I High Sensitivity 22.5 pg/ml (0-14)
[2023-03-16 07:09] LABS: Estimated Average Glucose 255 mg/dl; Hemoglobin A1C 10.5 % (4.5-5.6)
--- NOTE | 2023-03-16 07:12 | Electrocardiogram Report ---
Test Reason : Blood Pressure : / mmHG Vent. Rate : 068 BPM Atrial Rate : 068 BPM P-R Int : 124 ms QRS Dur : 072 ms QT Int : 410 ms P-R-T Axes : 000 -01 057 degrees QTc Int : 435 ms Normal sinus rhythm Minimal voltage criteria for LVH, may be normal variant Nonspecific ST abnormality Borderline ECG When compared with ECG of 26-JAN-2023 17:27, No significant change was found Confirmed by Manuel Perdomo ([id number]) on 03/16/2023 7:12:14 AM Referred By: REFERRED SELF Confirmed By:Arnulfo Perdomo
[2023-03-16] MEDS: CYANOCOBALAMIN (B-12) 500 MCG TABLET PO SCH (08:21)
[2023-03-16] MEDS: busPIRone 5 MG TAB PO SCH ×2 (08:21→21:57)
[2023-03-16] MEDS: LABETALOL HCL 200 MG TAB PO SCH ×2 (08:22→21:56)
[2023-03-16] MEDS: MAGNESIUM OXIDE 400 MG TAB PO SCH (08:22)
[2023-03-16] MEDS: methIMAzole 5 MG TABLET PO SCH (08:22)
[2023-03-16] MEDS: PANTOprazole 40 MG TAB PO SCH (08:22)
[2023-03-16] MEDS: KETOROLAC 0.5% OP SOLN 5 ML BTL OPB SCH ×2 (08:22→21:56)
[2023-03-16] MEDS: ROSUVASTATIN CALCIUM 10 MG TAB PO SCH (08:22)
[2023-03-16] MEDS: VENLAFAXINE HCL XR 150 MG CAPXR PO SCH (08:22)
[2023-03-16] MEDS ORDERED: Nursing to Pharmacy Communication SCH (08:45)
[2023-03-16] MEDS ORDERED: amLODIPine BESYLATE 5 MG TAB PO SCH (09:00)
[2023-03-16] MEDS ORDERED: LANTUS PER UNIT CHARGE SQ SCH (09:00)
[2023-03-16] MEDS ORDERED: FUROSEMIDE 20 MG TAB PO SCH (09:00)
--- NOTE | 2023-03-16 10:06 | Pharmacy Report ---
Pharmacy Glycemic Short Note 2 - Date of Service March 16, 2023 - Glycemic Short BSG Results (Last 24 hours): 03/15/23 03/15/23 03/15/23 17:08 17:46 17:55 Glucose 183 H POC Glucose 207 H 184 H 03/15/23 03/16/23 03/16/23 22:08 03:04 05:34 Glucose 155 H POC Glucose 137 H 158 H 03/16/23 05:48 Glucose POC Glucose 163 H OUTPATIENT ANTIDIABETIC REGIMEN: * Novolin N 40 units BID * A1c 10.5% 03/16/23 ASSESSMENT: * 72-year-old female with PMH of anxiety, CKD stage III, T2DM - uncontrolled, GERD, HTN, dyslipidemia, hypothyroidism, and depression. She presented for a feeling of generalized weakness and stroke-like sx (at home glucose monitor read 397mg/dL). * Patient's T2DM uncontrolled on 80 units/day of Novolin N insulin at home - change to basal bolus while inpatient for better glycemic control. PLAN FOR INPATIENT GLYCEMIC CONTROL: * Hold outpatient oral diabetes medications * Basal insulin * Lantus 20 units SQ BID * Bolus insulin * NovoLog per scale ACHS or Q6hrs while NPO * Goal Range: Low 110 mg/dL - High 140 mg/dL * Correction Factor: 25 mg/dL/unit * Nutritional / Prandial insulin per carb ratio of 1 unit per 8 grams CHO consumed
[2023-03-16] MEDS ORDERED: MAGNESIUM SULFATE / D5W 1 GM/100 ML BAG IV ONE (10:11)
--- NOTE | 2023-03-16 12:06 | XCELERA ---
[id number]
[2023-03-16] MEDS: INSULIN ASPART PER UNIT CHARGE SC SCH ×3 (12:50→21:47)
[2023-03-16] MEDS ORDERED: LANTUS PER UNIT CHARGE SQ ONE (14:00)
--- NOTE | 2023-03-16 14:11 | Hospitalist Progress Note ---
Date of Service March 16, 2023 Assessment & Plan (1) Stroke-like symptoms: Plan: Episode of facial droop & aphasia in the ER after presentation yesterday. Symptoms lasted 5 minutes or less then fully resolved. CTA head/neck negative. MRI brain negative for acute CVA. Echo without source of thrombus. She has not had recurrent symptoms since. Main complaints today are that of dizziness along with depression - see below. I cannot rule out a TIA. She does not take aspirin at home. Numerous cerebrovascular & cardiac risk factors thus will recommend daily baby aspirin moving forward. (2) KEEGAN (acute kidney injury): Plan: creatinine 2.07 on arrival baseline 1.63 today 1.7 improving in light of orthostatic hypotension continue LR fluids and repeat BMP am (3) Orthostatic hypotension: Plan: markedly orthostatic today on orthostatic check dropped to 76/50 with standing today in 2019 when she was hospitalized in the psych unit I actually saw her on consult then and she had orthostasis at that time HOLD amlodipine HOLD lasix lower labetalol dose to 100mg BID from 200mg BID HOLD lisinopril repeat orthostatics in am check an AM cortisol to be complete the orthostasis is the likely cause of her dizziness cont LR hydration (4) Headaches due 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: Plan: frequent headaches since her fall with head injury in December these seem to be a post-concussive type syndrome again, during her mental health stay in 2019 for depression, she had headaches during that hospitalization she might benefit from prophylaxis - lamictal? depakote? other? MRI brain negative for acute findings check sed rate/crp to be complete (5) Post concussive syndrome: Plan: head injury due to fall in 12/2022 see above (6) Major depressive disorder, recurrent severe without psychotic features: Plan: has been hospitalized for MDD in the past endorses severe depressive symptoms is on effexor monotherapy strongly consider psych consultation (7) Hypertension: Plan: see "orthostatic hypotension" above (8) Diabetes mellitus type 2, uncontrolled: Plan: Pharmacy glycemic consult with recs appreciated current A1c 10.5% basal-bolus insulin per pharmacy (9) Hyperthyroidism: Plan: TSH wnl Continue methimazole (10) Elevated troponin: Plan: Troponin 22.5 --> 19.6 no evidence of ACS likely myocardial demand ischemia in setting of the above issues (11) Acute kidney injury superimposed on CKD: Plan: see above (12) Chronic kidney disease, stage IV (severe): Plan: baseline CrCl high 20s bmp am (13) Morbid obesity with BMI of 40.0-44.9, adult: Plan: BMI 42 (14) Anemia: Plan: had Fe studies, B12, folate earlier in the fall - all wnl likely anemia of chronic kidney disease the anemia has been present for several years (15) Hypomagnesemia: Plan: replace mag sulfate 1gm x 1 repeat level am Plan will need PT/OT evals Admission and Anticipated Discharge Date Admission Date: March 15, 2023 Subjective patient reports her this summer (11/2022) and since then has suffered from severe depression many days she cannot get out of bed due to the depression crying spells etc 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 she hit her head due to a fall she has had headaches since that time nearly on a daily basis she denies past h/o migraines bright lights do bother the headaches, however no vomiting with her headaches yesterday she and her family were walking into [employer] she "barely made it in the door" due to severe dizziness/lightheadedness she thought she was going to pass out immediately sat down on a bench has had episodes of dizziness recently in the ER yesterday she had an episode of knowing what she wanted to say but simply could not get the words out she has had similar minor episodes but not as severe as yesterday's no recent illnesses Review of Systems Review of Systems: gen - no fevers cv - no chest pain pulm - no dyspnea GI - no abd pain Physical Exam Physical Exam: gen - obese, NAD, sitting in chair; pleasant neck - no JVD mouth - MMM heart - RRR, s1 s2, no murmur lungs - CTA b/l abd - soft NT ND BS+ ext - pulses 2+ b/l psych - a/o x 3 neuro - strength 5/5 x 4 exts; no facial droop Results & Data Results & Data Vital Signs (Past 12 Hours) Vital Signs Temp Pulse Pulse Pulse Resp BP Pulse Ox 03/16/23 13:54 80 76/50 L 03/16/23 13:54 75 107/68 03/16/23 11:58 36.5 C 74 20 112/70 94 03/16/23 08:03 75 03/16/23 07:57 36.9 C 74 18 143/80 H 94 03/16/23 04:05 37.0 C 74 17 169/76 H 93 O2 Del Method 03/16/23 13:54 03/16/23 13:54 03/16/23 11:58 Room Air 03/16/23 08:03 03/16/23 07:57 Room Air 03/16/23 04:05 Room Air Laboratory Results Laboratory Results - last 24 hr 03/16/23 03/16/23 03/16/23 05:34 05:48 12:46 WBC 9.14 RBC 3.10 L Hgb 9.7 L Hct 28.8 L MCV 92.9 MCH 31.3 MCHC 33.7 RDW Std Deviation 43.0 RDW Coeff of Emil 12.7 Plt Count 241 MPV 11.3 Immature Gran % (Auto) 0.3 Neut % (Auto) 63.8 Lymph % (Auto) 25.8 [place] % (Auto) 7.3 Eos % (Auto) 2.0 Baso % (Auto) 0.8 Neut # (Auto) 5.83 Lymph # (Auto) 2.36 [place] # (Auto) 0.67 H Eos # (Auto) 0.18 Baso # (Auto) 0.07 Immature Gran # (Auto) 0.03 Sodium 136 Potassium 4.1 Chloride 103 Carbon Dioxide 25 Anion Gap 8 BUN 31 H Creatinine 1.71 H D Est Cr Clr Drug Dosing 29.2 Est GFR ( Amer) 33.8 Est GFR (Non-Af Amer) 29.2 BUN/Creatinine Ratio 18.1 Glucose 155 H POC Glucose 163 H 278 H Estimat Average Glucose 255 Hemoglobin A1c 10.5 H Calcium 8.7 Magnesium 1.6 L Troponin I High Sens 22.5 H Triglycerides 176 H Cholesterol 173 LDL Cholesterol, Calc 76 VLDL Cholesterol, Calc 35 H HDL Cholesterol 62 Cholesterol/HDL Ratio 2.8 03/16/23 03/16/23 16:22 21:07 WBC RBC Hgb Hct MCV MCH MCHC RDW Std Deviation RDW Coeff of Emil Plt Count MPV Immature Gran % (Auto) Neut % (Auto) Lymph % (Auto) [place] % (Auto) Eos % (Auto) Baso % (Auto) Neut # (Auto) Lymph # (Auto) [place] # (Auto) Eos # (Auto) Baso # (Auto) Immature Gran # (Auto) Sodium Potassium Chloride Carbon Dioxide Anion Gap BUN Creatinine Est Cr Clr Drug Dosing Est GFR ( Amer) Est GFR (Non-Af Amer) BUN/Creatinine Ratio Glucose POC Glucose 259 H 126 H Estimat Average Glucose Hemoglobin A1c Calcium Magnesium Troponin I High Sens Triglycerides Cholesterol LDL Cholesterol, Calc VLDL Cholesterol, Calc HDL Cholesterol Cholesterol/HDL Ratio PG Care Time/CCT Total # of Minutes Spent Total Time Spent with Patient: Total time spent is greater than 50% in coordination of care (as documented) at patient's floor/unit and/or counseling patient: Coding Level of Care Code 08479 SUB INP/OBS CARE 3/50MIN Diagnoses Stroke-like symptoms R29.90 KEEGAN (acute kidney injury) N17.9 Orthostatic hypotension I95.1 Headaches due 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 G44.309; S09.90XS Post concussive syndrome F07.81 Major depressive disorder, recurrent severe without psychotic features F33.2 Hypertension I10 Hypertension type: unspecified Uncontrolled type 2 diabetes mellitus with hyperglycemia E11.65 Glycemic state: with hyperglycemia Hyperthyroidism E05.90 Elevated troponin R79.89 Acute kidney injury superimposed on CKD N17.9; N18.9 Chronic kidney disease, stage IV (severe) N18.4 Morbid obesity with BMI of 40.0-44.9, adult E66.01; Z68.41 Anemia D64.9 Hypomagnesemia E83.42 (7) Hypertension Hypertension type: unspecified Qualified Code(s): I10 - Essential (primary) hypertension (8) Diabetes mellitus type 2, uncontrolled Glycemic state: with hyperglycemia Qualified Code(s): E11.65 - Type 2 diabetes mellitus with hyperglycemia
[2023-03-16] MEDS: LANTUS PER UNIT CHARGE SQ SCH (21:57)
[2023-03-17 07:46] LABS: Basophils # (auto) 0.07 K/uL (0.00-0.20); Basophils % (auto) 0.7 %; Eosinophils # (auto) 0.48 K/uL (0.00-0.50); Hematocrit (blood only) 29.3 % (37.0-47.0); Hemoglobin 9.7 g/dl (12.0-16.0); Lymphocytes # (auto) 2.68 K/uL (1.20-3.40); Lymphocytes % (auto) 27.9 %; Mean Corpuscular Hemoglobin 31.4 pg (25.0-34.0); Mean Corpuscular Hgb Conc 33.1 g/dL (32.0-36.0); Mean Corpuscular Volume 94.8 fL (80.0-100.0); Monocytes # (auto) 0.94 K/uL (0.11-0.59); Monocytes % (auto) 9.8 %; Neutrophils # (auto) 5.34 K/uL (1.40-6.50); Neutrophils % (auto) 55.6 %; Platelet Count 249 K/uL (130-400); RDW Coefficient of Variation 12.8 % (11.5-14.5); RDW Standard Deviation 44.5 fL (36.4-46.3); Red Blood Count 3.09 M/uL (4.20-5.40); White Blood Count 9.61 K/ul (4.8-10.8)
[2023-03-17 08:30] LABS: Calcium 8.5 mg/dl (8.6-10.3); Est GFR (African American) 22.5 ml/min; Est GFR (Non-African American) 19.4 ml/min; Potassium 4.2 mmol/L (3.5-5.1)
[2023-03-17] MEDS: LABETALOL HCL 100 MG TAB PO SCH ×2 (09:08→20:38)
[2023-03-17] MEDS: KETOROLAC 0.5% OP SOLN 5 ML BTL OPB SCH ×2 (09:08→20:37)
[2023-03-17] MEDS: ASPIRIN 81 MG ECTAB PO SCH (09:08)
[2023-03-17] MEDS: methIMAzole 5 MG TABLET PO SCH (09:09)
[2023-03-17] MEDS: MAGNESIUM OXIDE 400 MG TAB PO SCH (09:09)
[2023-03-17] MEDS: busPIRone 5 MG TAB PO SCH ×2 (09:09→20:39)
[2023-03-17] MEDS: CYANOCOBALAMIN (B-12) 500 MCG TABLET PO SCH (09:09)
[2023-03-17] MEDS: PANTOprazole 40 MG TAB PO SCH (09:09)
[2023-03-17] MEDS: VENLAFAXINE HCL XR 150 MG CAPXR PO SCH (09:10)
[2023-03-17] MEDS: ROSUVASTATIN CALCIUM 10 MG TAB PO SCH (09:10)
[2023-03-17] MEDS: LANTUS PER UNIT CHARGE SQ SCH ×2 (09:18→20:36)
[2023-03-17] MEDS: INSULIN ASPART PER UNIT CHARGE SC SCH ×4 (09:19→20:36)
--- NOTE | 2023-03-17 09:38 | Pharmacy Report ---
- Date of Service March 17, 2023 - Pharmacy CVA/TIA Medication Review Discussed w Dr. Gutierrez - TIA cannot be ruled out, although this is not a definitive diagnosis at this time. Medications to Prevent Stroke handout has been added to the patients discharge packet just in case. Antiplatelet(s) * Aspirin Cholesterol * High intensity statin: rosuvastatin 20 mg daily DVT Prophylaxis * SCD knee Therapeutic Anticoagulation * No history of Afib/Aflutter noted Type 2 Diabetes * Patient has T2DM, but per Dr. Gutierrez, a diabetes medication with proven CVD benefit will be deferred to their outpatient provider due to familiarity with risks/benefits of such therapies. "Medications to prevent stroke" handout has already been added to the patient's discharge packet, which instructs the patient to follow up with their outpatient provider to evaluate which diabetes medication with proven CVD benefit is best for them
--- NOTE | 2023-03-17 17:42 | Hospitalist Progress Note ---
Date of Service March 17, 2023 Assessment & Plan (1) KEEGAN (acute kidney injury): Plan: creatinine 2.07 on arrival baseline 1.63 improved to 1.7 now 2.4 today despite IV hydration etiology of recurrent KEEGAN?? CT contrast? hypotension from her orthostasis? other? hold nephrotoxic agents including diuretics repeat BMP am she appears euvolemic on exam today (2) Stroke-like symptoms: Plan: Episode of facial droop & aphasia in the ER. Symptoms lasted 5 minutes or less then fully resolved. CTA head/neck negative. MRI brain negative for acute CVA. Echo without source of thrombus. She had a minor/brief episode of word finding difficulty today. I cannot rule out TIA. I cannot rule out atypical seizures. No a.fib seen on tele thus far. Started asa 81mg daily. Numerous cerebrovascular & cardiac risk factors. Increase crestor to 20mg/day. LDL 76 on recent lipid profile. (3) Orthostatic hypotension: Plan: markedly orthostatic yesterday dropped to 76/50 with standing in 2019 when she was hospitalized in the psych unit I actually saw her on consult then and she had orthostasis at that time HOLDing amlodipine HOLDing lasix HOLDing lisinopril lowered labetalol dose to 100mg BID from 200mg BID cortisol level wnl repeat orthostatics today improved; drop is ~30 points the orthostasis is the likely cause of her dizziness repeat orthos in am tomorrow (4) Headaches due 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: Plan: frequent headaches since her fall with head injury in December 2022 these seem to be a post-concussive type syndrome again, during her mental health stay in 2019 for depression, she had headaches during that hospitalization she might benefit from prophylaxis - lamictal? depakote? other? MRI brain negative for acute findings checked sed rate/crp to be complete - both wnl I spoke with psych - they will try to add an antidepressant that has some headache prophylaxis properties (5) Post concussive syndrome: Plan: head injury due to fall in 12/2022 see above (6) Major depressive disorder, recurrent severe without psychotic features: Plan: has been hospitalized for MDD in the past endorses severe depressive symptoms is on effexor monotherapy psych consultation requested I spoke directly with Dr Elizabeth from psych and gave background information (7) Hypertension: Plan: see "orthostatic hypotension" above (8) Diabetes mellitus type 2, uncontrolled: Plan: Pharmacy glycemic consult with recs appreciated current A1c 10.5% basal-bolus insulin per pharmacy (9) Hyperthyroidism: Plan: TSH wnl Continue methimazole (10) Elevated troponin: Plan: Troponin 22.5 --> 19.6 no evidence of ACS likely myocardial demand ischemia in setting of the above issues (11) Acute kidney injury superimposed on CKD: Plan: see above (12) Chronic kidney disease, stage IV (severe): Plan: baseline CrCl high 20s bmp am (13) Morbid obesity with BMI of 40.0-44.9, adult: Plan: BMI 42 (14) Anemia: Plan: had Fe studies, B12, folate earlier in the fall - all wnl likely anemia of chronic kidney disease the anemia has been present for several years (15) Hypomagnesemia: Plan: replaced yesterday repeat level am (16) Wheezing: Plan: patient states she has albuterol inhaler at home uses prn but has no formal dx of asthma, COPD, etc will order albuterol prn does not examine volume overloaded cxr at admission negative if any worsening consider biofire respiratory panel Plan PT/OT anshul left message for daughter on her voicemail this evening Admission and Anticipated Discharge Date Admission Date: March 15, 2023 Subjective no events overnight except had another "episode" of trying to get the words out and had trouble with such happened briefly this afternoon tele overnight wnl dizziness improved but not resolved no vertigo denies cough/congestion/dyspnea/orthopnea does use occasional albuterol at home on prn basis but no formal dx of asthma/COPD Review of Systems Review of Systems: gen - no fevers; eating well; +fatigue cv - no chest pain GI - no abd pain/N/V Physical Exam Physical Exam: gen - obese, NAD, sitting at side of bed, looks same as yesterday neck - no JVD mouth - MMM heart - RRR, s1 s2, no murmur lungs - mild end-exp wheezes (scattered) b/l abd - soft NT ND BS+ ext - pulses 2+ b/l psych - a/o x 3; laughs throughout the visit but at odd times Results & Data Results & Data Vital Signs (Past 12 Hours) Vital Signs Temp Pulse Pulse Resp BP Pulse Ox O2 Del Method 03/17/23 16:52 36.9 C 71 20 149/81 H 93 Room Air 03/17/23 11:43 36.8 C 73 20 136/77 94 Room Air 03/17/23 08:00 72 03/17/23 08:00 Room Air 03/17/23 07:44 36.6 C 74 20 157/79 H 94 Room Air Laboratory Results Laboratory Results - last 24 hr 03/16/23 03/17/23 03/17/23 21:07 07:23 07:53 WBC 9.61 RBC 3.09 L Hgb 9.7 L Hct 29.3 L MCV 94.8 MCH 31.4 MCHC 33.1 RDW Std Deviation 44.5 RDW Coeff of Emil 12.8 Plt Count 249 MPV 11.0 Immature Gran % (Auto) 1.0 Neut % (Auto) 55.6 Lymph % (Auto) 27.9 [place] % (Auto) 9.8 Eos % (Auto) 5.0 Baso % (Auto) 0.7 Neut # (Auto) 5.34 Lymph # (Auto) 2.68 [place] # (Auto) 0.94 H Eos # (Auto) 0.48 Baso # (Auto) 0.07 Immature Gran # (Auto) 0.10 ESR 30 Sodium 137 Potassium 4.2 Chloride 104 Carbon Dioxide 25 Anion Gap 8 BUN 36 H Creatinine 2.40 H D Est Cr Clr Drug Dosing 21.0 Est GFR ( Amer) 22.5 Est GFR (Non-Af Amer) 19.4 BUN/Creatinine Ratio 15.0 Glucose 88 POC Glucose 126 H 124 H Calcium 8.5 L C-Reactive Protein < 0.50 Cortisol AM Sample 10.55 03/17/23 03/17/23 03/17/23 10:40 12:06 16:38 WBC RBC Hgb Hct MCV MCH MCHC RDW Std Deviation RDW Coeff of Emil Plt Count MPV Immature Gran % (Auto) Neut % (Auto) Lymph % (Auto) [place] % (Auto) Eos % (Auto) Baso % (Auto) Neut # (Auto) Lymph # (Auto) [place] # (Auto) Eos # (Auto) Baso # (Auto) Immature Gran # (Auto) ESR Sodium Potassium Chloride Carbon Dioxide Anion Gap BUN Creatinine Est Cr Clr Drug Dosing Est GFR ( Amer) Est GFR (Non-Af Amer) BUN/Creatinine Ratio Glucose POC Glucose 144 H 118 H 86 Calcium C-Reactive Protein Cortisol AM Sample PG Care Time/CCT Total # of Minutes Spent Total Time Spent with Patient: Total time spent is greater than 50% in coordination of care (as documented) at patient's floor/unit and/or counseling patient: Coding Level of Care Code 16098 SUB INP/OBS CARE 3/50MIN Diagnoses KEEGAN (acute kidney injury) N17.9 Stroke-like symptoms R29.90 Orthostatic hypotension I95.1 Headaches due 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 G44.309; S09.90XS Post concussive syndrome F07.81 Major depressive disorder, recurrent severe without psychotic features F33.2 Hypertension I10 Hypertension type: unspecified Uncontrolled type 2 diabetes mellitus with hyperglycemia E11.65 Glycemic state: with hyperglycemia Hyperthyroidism E05.90 Elevated troponin R79.89 Acute kidney injury superimposed on CKD N17.9; N18.9 Chronic kidney disease, stage IV (severe) N18.4 Morbid obesity with BMI of 40.0-44.9, adult E66.01; Z68.41 Anemia D64.9 Hypomagnesemia E83.42 Wheezing R06.2 (7) Hypertension Hypertension type: unspecified Qualified Code(s): I10 - Essential (primary) hypertension (8) Diabetes mellitus type 2, uncontrolled Glycemic state: with hyperglycemia Qualified Code(s): E11.65 - Type 2 diabetes mellitus with hyperglycemia
[2023-03-18 06:41] LABS: Basophils # (auto) 0.07 K/uL (0.00-0.20); Basophils % (auto) 0.8 %; Eosinophils # (auto) 0.42 K/uL (0.00-0.50); Eosinophils % (auto) 4.8 %; Hematocrit (blood only) 29.9 % (37.0-47.0); Hemoglobin 9.9 g/dl (12.0-16.0); Immature Granulocytes # (auto) 0.03 K/uL (0.01-0.20); Immature Granulocytes % (auto) 0.3 %; Lymphocytes # (auto) 2.98 K/uL (1.20-3.40); Mean Corpuscular Hemoglobin 31.2 pg (25.0-34.0); Mean Corpuscular Hgb Conc 33.1 g/dL (32.0-36.0); Mean Corpuscular Volume 94.3 fL (80.0-100.0); Mean Platelet Volume 11.7 fL (9.4-12.4); Monocytes # (auto) 1.02 K/uL (0.11-0.59); Monocytes % (auto) 11.6 %; Neutrophils # (auto) 4.24 K/uL (1.40-6.50); Neutrophils % (auto) 48.5 %; Platelet Count 253 K/uL (130-400); RDW Standard Deviation 44.7 fL (36.4-46.3); Red Blood Count 3.17 M/uL (4.20-5.40); White Blood Count 8.76 K/ul (4.8-10.8)
[2023-03-18 07:39] LABS: Calcium 8.6 mg/dl (8.6-10.3); Creatinine Clr Calc Pharmacy 20.6 ml/min
[2023-03-18] MEDS: INSULIN ASPART PER UNIT CHARGE SC SCH ×4 (08:22→21:09)
[2023-03-18] MEDS: LABETALOL HCL 100 MG TAB PO SCH ×2 (08:50→20:10)
[2023-03-18] MEDS: methIMAzole 5 MG TABLET PO SCH (08:50)
[2023-03-18] MEDS: ROSUVASTATIN CALCIUM 20 MG TAB PO SCH (08:50)
[2023-03-18] MEDS: VENLAFAXINE HCL XR 150 MG CAPXR PO SCH (08:50)
[2023-03-18] MEDS: PANTOprazole 40 MG TAB PO SCH (08:50)
[2023-03-18] MEDS: MAGNESIUM OXIDE 400 MG TAB PO SCH (08:50)
[2023-03-18] MEDS: CYANOCOBALAMIN (B-12) 500 MCG TABLET PO SCH (08:51)
[2023-03-18] MEDS: busPIRone 5 MG TAB PO SCH ×2 (08:51→21:08)
[2023-03-18] MEDS: KETOROLAC 0.5% OP SOLN 5 ML BTL OPB SCH ×2 (08:52→20:09)
[2023-03-18] MEDS ORDERED: LANTUS PER UNIT CHARGE SQ SCH (09:00)
[2023-03-18] MEDS ORDERED: LANTUS PER UNIT CHARGE SC SCH ×3 (09:00→21:00)
[2023-03-18] MEDS: ASPIRIN 81 MG ECTAB PO SCH (09:20)
--- NOTE | 2023-03-18 13:43 | Pharmacy Report ---
Pharmacy Glycemic Short Note 2 - Date of Service March 18, 2023 - Glycemic Short BSG Results (Last 24 hours): 03/17/23 03/17/23 03/18/23 16:38 20:12 05:20 Glucose 46 L* POC Glucose 86 186 H 03/18/23 03/18/23 03/18/23 07:42 07:59 11:58 Glucose POC Glucose 68 L* 78 184 H OUTPATIENT ANTIDIABETIC REGIMEN: * Novolin N 40 units BID * A1c 10.5% 03/16/23 ASSESSMENT: 03/18 * Padmaja received 62 units of insulin yesterday of which 50 were basal. * Symptomatic hypoglycemia this AM, likely due to increased basal dosage yesterday evening. Will reduce total basal daily insulin dosage to a maximum of 80% of yesterday's regimen. * Serum creatinine slowly rising, will monitor for insulin accumulation, no additional glycemic stressors at this time. * Carbohydrate ratio slightly loosened due to BSGs below goal range yesterday 03/16: * 72-year-old female with PMH of anxiety, CKD stage III, T2DM - uncontrolled, GERD, HTN, dyslipidemia, hypothyroidism, and depression. She presented for a feeling of generalized weakness and stroke-like sx (at home glucose monitor read 397mg/dL). * Patient's T2DM uncontrolled on 80 units/day of Novolin N insulin at home - change to basal bolus while inpatient for better glycemic control. PLAN FOR INPATIENT GLYCEMIC CONTROL: * Hold outpatient oral diabetes medications * Basal insulin * Lantus 20 units SQ Daily * Lantus 10-20 units SQ HS (see eMAR for additional details) * Bolus insulin * NovoLog per scale ACHS or Q6hrs while NPO * Goal Range: Low 110 mg/dL - High 140 mg/dL * Correction Factor: 25 mg/dL/unit * Nutritional / Prandial insulin per carb ratio of 1 unit per 7 grams CHO consumed
--- NOTE | 2023-03-18 16:46 | Hospitalist Progress Note ---
Date of Service March 18, 2023 Assessment & Plan (1) KEEGAN (acute kidney injury): Plan: creatinine 2.07 on arrival baseline 1.63 improved to 1.7 then samantha to 2.4 yesterday and has remained at 2.4 no response in creatinine to IV hydration etiology of recurrent KEEGAN?? CT contrast? hypotension from her orthostasis? other? hold nephrotoxic agents including diuretics repeat BMP am she again appears euvolemic on exam today CT a/p on 12/07/22 did NOT show any urinary tract pathology, stones, etc could consider renal u/s if creatinine continues to be high or worsens 03/15/23 u/a -- no casts; 3+ protein (proteinuria is chronic) (2) Stroke-like symptoms: Plan: Episode of facial droop & aphasia in the ER. Symptoms lasted 5 minutes or less then fully resolved. Had a 2nd, brief episode over the weekend. CTA head/neck negative. MRI brain negative for acute CVA. Echo without source of thrombus. I cannot rule out TIA. I cannot rule out atypical seizures. No a.fib seen on tele thus far. Started asa 81mg daily in the event these are TIAs. Has numerous cerebrovascular & cardiac risk factors. Increased crestor to 20mg/day. LDL 76 on recent lipid profile. EEG pending to r/o seizures. (3) Orthostatic hypotension: Plan: markedly orthostatic over the weekend dropped to 76/50 with standing in 2018 when she was hospitalized in the psych unit I actually saw her on consult then and she had orthostasis at that time as well HOLDing amlodipine HOLDing lasix HOLDing lisinopril lowered labetalol dose to 100mg BID from 200mg BID cortisol level wnl repeat orthostatics yesterday and today markedly improved; drop is ~30 points or less; with standing her systolic BP is now about 120 the orthostasis is the likely cause of her chronic dizziness repeat orthos qam for stability (4) Headaches due 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: Plan: frequent headaches since her fall with head injury in December 2022 these seem to be a post-concussive type syndrome again, during her mental health stay in 2019 for depression, she had headaches during that hospitalization as well she might benefit from prophylaxis - lamictal? depakote? topamax? other? MRI brain negative for acute findings checked sed rate/crp to be complete - both wnl I spoke with psych - they will try to add an antidepressant that has some headache prophylaxis properties (5) Post concussive syndrome: Plan: head injury due to fall in 12/2022 see above (6) Major depressive disorder, recurrent severe without psychotic features: Plan: has been hospitalized for MDD in the past endorses severe depressive symptoms although her affect is full, she is often laughing, etc is on effexor monotherapy psych consultation requested I spoke directly with Dr Elizabeth from psych and gave background information he plans to see her today (7) Hypertension: Plan: see "orthostatic hypotension" above (8) Diabetes mellitus type 2, uncontrolled: Plan: Pharmacy glycemic consult with recs appreciated current A1c 10.5% basal-bolus insulin per pharmacy had hypoglycemia this am - pharmacy to adjust insulins (9) Hyperthyroidism: Plan: TSH wnl Continue methimazole (10) Elevated troponin: Plan: Troponin 22.5 --> 19.6 no evidence of ACS likely myocardial demand ischemia in setting of the above issues (11) Acute kidney injury superimposed on CKD: Plan: see above (12) Chronic kidney disease, stage IV (severe): Plan: baseline CrCl high 20s baseline Cr upper 1's with significant fluctuations seen over the last few years bmp am (13) Morbid obesity with BMI of 40.0-44.9, adult: Plan: BMI 42 (14) Anemia: Plan: had Fe studies, B12, folate earlier in the fall - all wnl likely anemia of chronic kidney disease the anemia has been present for several years (15) Hypomagnesemia: Plan: replaced resolved 2nd to chronic lasix use (16) Wheezing: Plan: patient states she has albuterol inhaler at home uses prn but has no formal dx of asthma, COPD, etc does not examine volume overloaded cxr at admission negative repeat cxr today without edema or other findings if any worsening consider biofire respiratory panel will schedule albuterol 2 puffs qid etiology of wheezing?? Plan PT/OT anshul - passed, can return home at discharge spoke with pt's daughter by phone this evening - gave extensive update Admission and Anticipated Discharge Date Admission Date: March 15, 2023 Subjective tele stable overnight denies any new complaints dizziness/lightheadedness is improved no vertigo denies dyspnea mild cough and wheeze but she doesn't feel "sick" no myalgias good appetite no additional spells of word-finding problems no seizure activity did have episode of hypoglycemia this am during the hypoglycemia she did not experience any neurological symptoms oddly her EEG was marked as completed but she doesn't remember having it done?? Review of Systems Review of Systems: gen - no fevers, no chills, eating well; fatigue - chronic cv - no orthopnea, no PND GI - no abd pain/nausea/emesis pulm - mild cough only; received albuterol yesterday evening which did help her cough Physical Exam Physical Exam: gen - obese, NAD, sitting at side of bed, looks same as yesterday; she is in good spirits and laughing despite report of depression neck - no JVD mouth - MMM heart - RRR, s1 s2, no murmur lungs - mild end-exp wheezes b/l especially on right abd - soft NT ND BS+ ext - pulses 2+ b/l psych - a/o x 3; laughs throughout the visit, even smiling Results & Data Results & Data Vital Signs (Past 12 Hours) Vital Signs Temp Pulse Pulse Resp BP BP Pulse Ox 03/18/23 16:28 37 C 67 18 155/81 H 97 03/18/23 12:06 37 C 67 18 161/73 H 95 03/18/23 07:53 36.6 C 79 18 163/72 H 95 03/18/23 07:00 67 O2 Del Method 03/18/23 16:28 Room Air 03/18/23 12:06 Room Air 03/18/23 07:53 Room Air 03/18/23 07:00 Laboratory Results Laboratory Results - last 24 hr 03/18/23 03/18/23 03/18/23 05:20 07:42 07:59 Sodium 139 Potassium 4.0 Chloride 106 Carbon Dioxide 24 Anion Gap 9 BUN 39 H Creatinine 2.44 H Est Cr Clr Drug Dosing 20.6 Est GFR ( Amer) 22.0 Est GFR (Non-Af Amer) 19.0 BUN/Creatinine Ratio 16.0 Glucose 46 L* POC Glucose 68 L* 78 Calcium 8.6 Magnesium 2.0 03/18/23 03/18/23 03/18/23 11:58 17:29 20:47 Sodium Potassium Chloride Carbon Dioxide Anion Gap BUN Creatinine Est Cr Clr Drug Dosing Est GFR ( Amer) Est GFR (Non-Af Amer) BUN/Creatinine Ratio Glucose POC Glucose 184 H 89 100 H Calcium Magnesium Diagnostic Findings Chest X-Ray 03/18/23 16:45 TWO VIEW CHEST CLINICAL HISTORY: Right-sided wheezing. FINDINGS: PA and lateral chest radiographs are compared to study dated 03/15/2023. Correlation is made with chest CT dated 04/02/2022. The heart is enla rged measuring atherosclerotic calcification of the thoracic aorta. The pulmonary vasculature is noncongested. Chronic interstitial thickening similar to previous. There is mild bibasilar scarring/atelectasis. The lungs and pleural spaces are otherwise clear. There is no pneumothorax. The skeletal structures are osteopenic. The bony thorax appears intact. Cholecystectomy clips are noted in the upper abdomen. IMPRESSION: Cardiomegaly with no active disease in the chest. ACT 112: Negative or not required by law. Electronically signed by: Arnulfo Saravia M.D. 03/18/2023 6:24 PM PG Care Time/CCT Total # of Minutes Spent Total Time Spent with Patient: Total time spent is greater than 50% in coordination of care (as documented) at patient's floor/unit and/or counseling patient: Coding Level of Care Code 58006 SUB INP/OBS CARE 3/50MIN Diagnoses KEEGAN (acute kidney injury) N17.9 Stroke-like symptoms R29.90 Orthostatic hypotension I95.1 Headaches due 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 G44.309; S09.90XS Post concussive syndrome F07.81 Major depressive disorder, recurrent severe without psychotic features F33.2 Hypertension I10 Hypertension type: unspecified Uncontrolled type 2 diabetes mellitus with hyperglycemia E11.65 Glycemic state: with hyperglycemia Hyperthyroidism E05.90 Elevated troponin R79.89 Acute kidney injury superimposed on CKD N17.9; N18.9 Chronic kidney disease, stage IV (severe) N18.4 Morbid obesity with BMI of 40.0-44.9, adult E66.01; Z68.41 Anemia D64.9 Hypomagnesemia E83.42 Wheezing R06.2 (7) Hypertension Hypertension type: unspecified Qualified Code(s): I10 - Essential (primary) hypertension (8) Diabetes mellitus type 2, uncontrolled Glycemic state: with hyperglycemia Qualified Code(s): E11.65 - Type 2 diabetes mellitus with hyperglycemia
--- NOTE | 2023-03-18 18:27 | XRay Report ---
TWO VIEW CHEST CLINICAL HISTORY: Right-sided wheezing. FINDINGS: PA and lateral chest radiographs are compared to study dated 03/15/2023. Correlation is made with chest CT dated 04/02/2022. The heart is enlarged measuring atherosclerotic calcification of the thoracic aorta. The pulmonary vasculature is noncongested. Chronic interstitial thickening similar t o previous. There is mild bibasilar scarring/atelectasis. The lungs and pleural spaces are otherwise clear. There is no pneumothorax. The skeletal structures are osteopenic. The bony thorax appears inta ct. Cholecystectomy clips are noted in the upper abdomen. IMPRESSION: Cardiomegaly with no active disease in the chest. ACT 112: Negative or not required by law. Electronically signed by: Arnulfo Saravia M.D. 03/18/2023 6:24 PM
--- NOTE | 2023-03-18 22:29 | Psychiatric Consultation ---
Date of Consultation March 18, 2023 Impression / Recommendations Impression 72 y/o woman with a history of recurrent major depression dating to some time before October 2017. She endorses some depressive symptoms, though these would difficult to distinguish from grieving, and denies severe symptoms such as hopelessness or suicidal thoughts. She's been maintained on venlafaxine XR for over 4 years at 150 mg/day. I don't get the impression that she's trying to dissemble about her psychiatric history so much as that she's having trouble keeping track of time. Given her lack of severe mood symptoms, her lack of subjective distress about these symptoms, and her stated preference that I not "mess with" her medications I think it would reasonable to accept her partially-treated depression symptoms as a reasonable compromise compared with her multiple medical problems (some of which could be exacerbated by increased venlafaxine, especially headaches and elevated BP) and multiple other medications and not increase venlafaxine XR at this time. Buspirone is often ineffective if taken less than TID. This can easily be accomplished in the hospital, but at home BID dosing is often the practical limit. Her dose of 10 mg BID is quite low, and it's possible that a modest dose increase might overcome the limitations of BID dosing. While she does not endorse anxiety symptoms as subjectively bothersome right now, adjusting buspirone is usually a low-risk intervention and buspirone appears to be able to augment antidepressant responses. Overall I spent a total of 88 minutes on the floor for this consultation assessment including review of chart records, review of test results, direct evaluation of the patient [id number], counseling the patient, medication education with the patient, risk assessment, discussion with the psychiatric liaison nurse, and documentation in the electronic health record. (1) Major depressive disorder, recurrent, in partial remission: (2) MCI (mild cognitive impairment): Plan Continue venlafaxine XR 150 mg BID Increase buspirone to 15 mg BID Psych History Identifying Data CRISS LEGGETT is a 72-year-old F with a history of depression, admitted on 03/15/2023 for weakness. Consult is by the hospitalist service for "MDD - recurrent". Chief Complaint "Oh... I'm doing OK". History of Present Illness Pleasant, engaging woman who presents as grieving the of her in November of this year, saying she's "been kind of down" and that "it's been hard to start back doing things. She says she's felt sad, that her appetite "has been a little off", that she's felt less motivated and interested in her usual purs uits as well as somewhat anhedonic. She's not sure if her energy has changed since she "was wiped out before he got sick". She denies feeling hopeless or having suicidal thoughts. Pt explicitly associates onset of all these issues to the of her and, after careful thought, says she hasn't had any similar problems prior to then. She says "that little orange capsule that starts with 'V'" was started shortly after she was . She doesn't think it's done much. She is alert, oriented to person, place, time, and circumstances. Immediate recall is intact, but short-term and long-term memory appear impaired based on significant divergence between history as she reports it and what's documented in her chart. Chart notes as far back as 2018 (the earliest directly- entered notes) from both PCP and psychiatric financial planning consultant document a diagnosis of recurrent major depression at that time, and venlafaxine XR 150 mg was already part of her treatment. Several notes reflect that she seemed to under-report symptom severity. She also had a psychiatric admission here in October 2017 (notes from which are available as scans). She voices a preference that I "not mess with" her psychiatric medications, which she thinks are "working OK". Past Psychiatric History Previous Psych Admissions: [facility] October 2017 History of Previous Suicide Attempt: No Allergies Allergy/AdvReac Type Severity Reaction Status Date / Time No Known Allergies Allergy Verified 02/26/23 12:56 Home Medications Medication Instructions Recorded Confirmed Type acetaminophen 500 mg tablet 1,000 mg PO Q6H PRN Pain 06/19/21 03/15/23 History ketorolac 0.5 % eye drops 1 drp OPB BID 03/28/22 03/15/23 History cyanocobalamin (vitamin B-12) 500 1,000 mcg (2 x 500 mcg) PO QAM #60 04/23/22 03/15/23 Rx mcg tablet tabs methimazole 10 mg tablet 5 mg (1/2 x 10 mg) PO QAM #90 tabs 04/23/22 03/15/23 Rx lancets (Accu-Chek Softclix #200 ea 04/27/22 02/26/23 Rx Lancets) furosemide 20 mg tablet 20 mg PO DAILY 07/26/22 03/15/23 History calcitriol 0.25 mcg capsule 0.25 mcg PO 3XWK #36 caps 10/15/22 03/15/23 Rx rosuvastatin 10 mg tablet 10 mg PO QAM #90 tabs 11/22/22 03/15/23 Rx albuterol sulfate 90 mcg/actuation 2 inh inhalation Q6H PRN Shortness 12/07/22 03/15/23 History aerosol inhaler Of Breath Or Wheezing insulin human U-100 NPH-regulr 40 unit subcut BID 12/07/22 03/15/23 History 70-30 mix 100 unit/mL subcutaneous susp (Novolin 70/30 U-100 Insulin) venlafaxine 150 mg 150 mg PO QAM #90 caps 01/07/23 03/15/23 Rx capsule,extended release 24 hr (Effexor XR) pantoprazole 40 mg tablet,delayed 40 mg PO QAM #90 tabs 01/23/23 03/15/23 Rx release amlodipine 5 mg tablet 10 mg (2 x 5 mg) PO DAILY #90 tabs 01/25/23 03/15/23 Rx buspirone 5 mg tablet 10 mg PO BID 01/26/23 03/15/23 History blood sugar diagnostic (Accu-Chek #100 ea 01/30/23 02/26/23 Rx Guide test strips) labetalol 200 mg tablet 200 mg PO BID #180 tabs 02/11/23 03/15/23 Rx blood-glucose meter (Accu-Chek #1 ea 02/13/23 02/26/23 Rx Guide Glucose Meter) magnesium oxide 400 mg (241.3 mg 400 mg PO DAILY #30 tabs 02/15/23 03/15/23 Rx magnesium) tablet lisinopril 20 mg tablet 20 mg PO DAILY #90 tabs 03/11/23 03/15/23 Rx Patient History Medical History (Updated 03/18/23 @ 22:48 by Yakov Elizabeth MD) Major depressive disorder, recurrent, in partial remission Vasovagal episode Diastolic CHF Recurrent UTI Morbid obesity with BMI of 40.0-44.9, adult Melanoma of nose Vitamin D deficiency Nephrotic syndrome GERD without esophagitis Arthritis CKD (chronic kidney disease) stage 3, GFR 30-59 ml/min Hypertension Major depressive disorder, recurrent severe without psychotic features Hyperthyroidism HNP (herniated nucleus pulposus), lumbar Dyslipidemia Diabetes mellitus type 2, uncontrolled IDDM Surgical History Status post trigger finger release History of repair of left rotator cuff History of repair of right rotator cuff History of colonoscopy History of melanoma excision History of tooth extraction all teeth removed History of bilateral cataract extraction S/P tonsillectomy S/P tubal ligation S/P cholecystectomy Family History Father Prostate cancer Diabetes Myocardial infarction Lung cancer Mother Diabetes Alzheimer disease Myocardial infarction Hypertension Brother COPD (chronic obstructive pulmonary disease) Other No family history of adverse response to anesthesia Denies family history of Ovarian cancer Breast cancer Colorectal cancer Social History Smoking Status: Never smoker Second Hand Exposure: No; Do You Dip or Chew Tobacco: No; Hx Alcohol Use: No Hx Substance Use: No Preferred Language: Danish Communication Ability: Effective Communication Ability Comment: Reports difficulty reading now r/t dizziness Visual Impairment: No Limitations Hearing Ability: Normal Manager Quality Improvement Required: No Beliefs That Will Affect Care: None marital status: Current Living Situation: Family Current Living Situation Comment: Lives with daughterLorrie current occupational status: retired current occupation: retired - worked at [employer] Other Information That Helps Us Care for You: No Feels Safe at Home: Yes Safety Concerns: Feels Safe At This Time Childhood Exposure to Second-Hand Smoke: No Diet: regular caffeine: Yes (Soda x 10 cans per day.) during the past year weight has: remained stable Dental Care, Regularly: No Physical Activity Frequency: Daily Physical Activity Frequency Comment: house chores Seatbelt Use: always Sunscreen Use: No Assistive Devices: None Physical Exam Psychiatric: Orientation: alert, oriented to person, oriented to place, oriented to time and cooperative Apperance: appropriately dressed and appropriately groomed Eye Contact: good eye contact Motor Behavior: no abnormal motor movements Speech: normal rate/rhythm/volume of speech Affect: + constricted affect Mood: + dysphoric mood Thought Process: clear/coherent thought process Thought Content: reality based without delusions Suicidal Thoughts: + reports suicidal thoughts, + reports suicidal plan and + reports suicidal intent Homicidal Thoughts: denies homicidal thoughts Hallucinations: no auditory hallucinations and no visual hallucinations Cognition: attention grossly intact and language grossly intact; + recent memory not intact and + remote memory not intact Estimated Intelligence: consistent with education level Insight: + limited insight Judgment: + fair judgement Vital Signs (Past 24 Hours): Last Vital Signs Temp 36.6 C 03/18/23 19:00 Pulse 67 03/18/23 19:00 Resp 18 03/18/23 19:00 BP 147/93 H 03/18/23 19:00 Pulse Ox 96 03/18/23 19:00 O2 Del Method Room Air 03/18/23 19:00 Review of Systems Psychiatric: + depression, + anhedonia and + change in appetite; no hopelessness, no suicidal ideation, no paranoia and no hallucinations Results & Data (PSY) Medications Administered Amlodipine Besylate (Amlodipine Besylate 5 Mg Tab) 10 mg PO DAILY [facility] Stop: 04/15/23 08:59 Last Admin: 03/16/23 08:21 Dose: 10 mg Documented By: MAGDALENE Aspirin (Aspirin 81 Mg Ectab) [address] [facility] Stop: 04/16/23 08:59 Last Admin: 03/18/23 09:20 Dose: 81 mg Documented By: Admin: 03/17/23 09:08 Dose: 81 mg Documented By: AXEL Buspirone HCl (Buspirone 5 Mg Tab) 10 mg PO BID [facility] Stop: 04/15/23 08:59 Last Admin: 03/18/23 21:08 Dose: 10 mg Documented By: [id number] Admin: 03/18/23 08:51 Dose: 10 mg Documented By: Admin: 03/17/23 20:39 Dose: 10 mg Documented By: Admin: 03/17/23 09:09 Dose: 10 mg Documented By: Admin: 03/16/23 21:57 Dose: 10 mg Documented By: [id number] Admin: 03/16/23 08:21 Dose: 10 mg Documented By: MAGDALENE Cyanocobalamin (Cyanocobalamin (B-12) 500 Mcg Tablet) [facility] Stop: 04/15/23 08:59 Last Admin: 03/18/23 08:51 Dose: 1,000 mcg Documented By: Admin: 03/17/23 09:09 Dose: 1,000 mcg Documented By: Admin: 03/16/23 08:21 Dose: 1,000 mcg Documented By: MAGDALENE Furosemide (Furosemide 20 Mg Tab) 20 mg PO DAILY [facility] Stop: 04/15/23 08:59 Last Admin: 03/16/23 08:22 Dose: 20 mg Documented By: MAGDALENE Insulin Aspart (Insulin Aspart Per Unit Charge) 0 units SC ACHS IAN Stop: 04/15/23 05:59 Last Admin: 03/18/23 21:09 Dose: Not Given Documented By: [id number] Admin: 03/18/23 17:55 Dose: 6 units Documented By: SEDA Co-signed By: CHANDLER Admin: 03/18/23 12:32 Dose: 9 units Documented By: Co-signed By: PRINCE Admin: 03/18/23 08:22 Dose: Not Given Documented By: Admin: 03/17/23 20:36 Dose: 3 units Documented By: ABE Co-signed By: [email or web address] Admin: 03/17/23 18:04 Dose: Not Given Documented By: Admin: 03/17/23 13:28 Dose: 7 units Documented By: AXEL Co-signed By: MONICA Admin: 03/17/23 09:19 Dose: 2 units Documented By: AXEL Co-signed By: JOSE Admin: 03/16/23 21:47 Dose: Not Given Documented By: [id number] Admin: 03/16/23 17:42 Dose: 15 units Documented By: MAGDALENE Co-signed By: MONICA Admin: 03/16/23 12:50 Dose: 3 units Documented By: MAGDALENE Co-signed By: DON Insulin Glargine (Lantus Per Unit Charge) 0 units SC HS IAN; Protocol Stop: 04/17/23 20:59 Last Admin: 03/18/23 21:09 Dose: 10 units Documented By: [id number] Co-signed By: [facility] Insulin Glargine (Lantus Per Unit Charge) 20 units SC DAILY IAN Stop: 04/17/23 12:29 Last Admin: 03/18/23 12:32 Dose: 20 units Documented By: Co-signed By: PRINCE Ketorolac Tromethamine (Ketorolac 0.5% Op Soln 5 Ml Btl) 1 drops OPB BID IAN Stop: 04/15/23 08:59 Last Admin: 03/18/23 20:09 Dose: 1 drops Documented By: [id number] Admin: 03/18/23 08:52 Dose: 1 drops Documented By: Admin: 03/17/23 20:37 Dose: 1 drops Documented By: Admin: 03/17/23 09:08 Dose: 1 drops Documented By: Admin: 03/16/23 21:56 Dose: 1 drops Documented By: [id number] Admin: 03/16/23 08:22 Dose: 1 drops Documented By: MAGDALENE Labetalol HCl (Labetalol Hcl 100 Mg Tab) 100 mg PO BID I[facility] Stop: 04/16/23 08:59 Last Admin: 03/18/23 20:10 Dose: 100 mg Documented By: [id number] Admin: 03/18/23 08:50 Dose: 100 mg Documented By: Admin: 03/17/23 20:38 Dose: 100 mg Documented By: Admin: 03/17/23 09:08 Dose: 100 mg Documented By: AXEL Magnesium Oxide (Magnesium Oxide 400 Mg Tab) 400 mg PO DAILY I[facility] Stop: 04/15/23 08:59 Last Admin: 03/18/23 08:50 Dose: 400 mg Documented By: Admin: 03/17/23 09:09 Dose: 400 mg Documented By: Admin: 03/16/23 08:22 Dose: 400 mg Documented By: MAGDALENE Methimazole (Methimazole 5 Mg Tablet) 5 mg PO QAM IAN Stop: 04/15/23 08:59 Last Admin: 03/18/23 08:50 Dose: 5 mg Documented By: Admin: 03/17/23 09:09 Dose: 5 mg Documented By: Admin: 03/16/23 08:22 Dose: 5 mg Documented By: MAGDALENE Miscellaneous (Carbohydrates For Hypoglycemia ) 15 - 30 gm PO UD PRN PRN Reason: Hypoglycemia Protocol Stop: 04/15/23 01:11 Last Admin: 03/18/23 07:43 Dose: 15 gm Documented By: Pantoprazole Sodium (Pantoprazole 40 Mg Tab) 40 mg PO QAM IAN Stop: 04/15/23 08:59 Last Admin: 03/18/23 08:50 Dose: 40 mg Documented By: Admin: 03/17/23 09:09 Dose: 40 mg Documented By: Admin: 03/16/23 08:22 Dose: 40 mg Documented By: MAGDALENE Rosuvastatin Calcium (Rosuvastatin Calcium 20 Mg Tab) [address] [facility] Stop: 04/17/23 08:59 Last Admin: 03/18/23 08:50 Dose: 20 mg Documented By: Venlafaxine HCl (Venlafaxine Hcl Xr 150 Mg Capxr) [address] [facility] Stop: 04/15/23 08:59 Last Admin: 03/18/23 08:50 Dose: 150 mg Documented By: Admin: 03/17/23 09:10 Dose: 150 mg Documented By: Admin: 03/16/23 08:22 Dose: 150 mg Documented By: MAGDALENE Coding Level of Care Code 53395 U Intl Hosp Care Lvl 3 Diagnoses Major depressive disorder, recurrent, in partial remission F33.41 MCI (mild cognitive impairment) G31.84 Time Spent (min) 88
[2023-03-19] MEDS: ALBUTEROL HFA 8 GM INHALER INH SCH ×5 (04:17→20:25)
[2023-03-19 07:54] LABS: BUN Creatinine Ratio 19.9 (10-20); Calcium 8.6 mg/dl (8.6-10.3); Creatinine Clr Calc Pharmacy 22.3 ml/min; Est GFR (African American) 24.2 ml/min; Est GFR (Non-African American) 20.8 ml/min; Potassium 4.4 mmol/L (3.5-5.1)
[2023-03-19] MEDS: INSULIN ASPART PER UNIT CHARGE SC SCH ×4 (08:39→21:09)
[2023-03-19] MEDS: LABETALOL HCL 100 MG TAB PO SCH ×2 (08:39→21:10)
[2023-03-19] MEDS: PANTOprazole 40 MG TAB PO SCH (08:40)
[2023-03-19] MEDS: methIMAzole 5 MG TABLET PO SCH (08:40)
[2023-03-19] MEDS: VENLAFAXINE HCL XR 150 MG CAPXR PO SCH (08:40)
[2023-03-19] MEDS: ROSUVASTATIN CALCIUM 20 MG TAB PO SCH (08:40)
[2023-03-19] MEDS: MAGNESIUM OXIDE 400 MG TAB PO SCH (08:40)
[2023-03-19] MEDS: CYANOCOBALAMIN (B-12) 500 MCG TABLET PO SCH (08:40)
[2023-03-19] MEDS: ASPIRIN 81 MG ECTAB PO SCH (08:41)
[2023-03-19] MEDS: KETOROLAC 0.5% OP SOLN 5 ML BTL OPB SCH ×2 (08:42→21:09)
[2023-03-19] MEDS: LANTUS PER UNIT CHARGE SC SCH (08:46)
[2023-03-19] MEDS ORDERED: LANTUS PER UNIT CHARGE SC SCH (09:00)
[2023-03-19] MEDS: busPIRone 15 MG TAB PO SCH ×2 (09:41→21:11)
--- NOTE | 2023-03-19 10:48 | Electroencephalogram ---
EEG Procedure Note Date of Service March 19, 2023 Start / End Times Start Time: 719 End Time: 40 Referring Physician adán shaw History word finding problem. Home Medication List Medication Instructions Recorded Confirmed Type acetaminophen 500 mg tablet 1,000 mg PO Q6H PRN Pain 06/19/21 03/15/23 History ketorolac 0.5 % eye drops 1 drp OPB BID 03/28/22 03/15/23 History cyanocobalamin (vitamin B-12) 500 1,000 mcg (2 x 500 mcg) PO QAM #60 04/23/22 03/15/23 Rx mcg tablet tabs methimazole 10 mg tablet 5 mg (1/2 x 10 mg) PO QAM #90 tabs 04/23/22 03/15/23 Rx lancets (Accu-Chek Softclix #200 ea 04/27/22 02/26/23 Rx Lancets) furosemide 20 mg tablet 20 mg PO DAILY 07/26/22 03/15/23 History calcitriol 0.25 mcg capsule 0.25 mcg PO 3XWK #36 caps 10/15/22 03/15/23 Rx rosuvastatin 10 mg tablet 10 mg PO QAM #90 tabs 11/22/22 03/15/23 Rx albuterol sulfate 90 mcg/actuation 2 inh inhalation Q6H PRN Shortness 12/07/22 03/15/23 History aerosol inhaler Of Breath Or Wheezing insulin human U-100 NPH-regulr 40 unit subcut BID 12/07/22 03/15/23 History 70-30 mix 100 unit/mL subcutaneous susp (Novolin 70/30 U-100 Insulin) venlafaxine 150 mg 150 mg PO QAM #90 caps 01/07/23 03/15/23 Rx capsule,extended release 24 hr (Effexor XR) pantoprazole 40 mg tablet,delayed 40 mg PO QAM #90 tabs 01/23/23 03/15/23 Rx release amlodipine 5 mg tablet 10 mg (2 x 5 mg) PO DAILY #90 tabs 01/25/23 03/15/23 Rx buspirone 5 mg tablet 10 mg PO BID 01/26/23 03/15/23 History blood sugar diagnostic (Accu-Chek #100 ea 01/30/23 02/26/23 Rx Guide test strips) labetalol 200 mg tablet 200 mg PO BID #180 tabs 02/11/23 03/15/23 Rx blood-glucose meter (Accu-Chek #1 ea 02/13/23 02/26/23 Rx Guide Glucose Meter) magnesium oxide 400 mg (241.3 mg 400 mg PO DAILY #30 tabs 02/15/23 03/15/23 Rx magnesium) tablet lisinopril 20 mg tablet 20 mg PO DAILY #90 tabs 03/11/23 03/15/23 Rx Inpatient Medication List Albuterol (Albuterol Hfa 8 Gm Inhaler) 2 puffs INH QIDR [facility] Stop: 04/17/23 19:29 Last Admin: 03/19/23 07:15 Dose: 2 puffs Documented By: Admin: 03/19/23 04:17 Dose: Not Given Documented By: QUINCY Amlodipine Besylate (Amlodipine Besylate 5 Mg Tab) 10 mg PO DAILY [facility] Stop: 04/15/23 08:59 Last Admin: 03/16/23 08:21 Dose: 10 mg Documented By: MAGDALENE Aspirin (Aspirin 81 Mg Ectab) 81 mg PO [facility] Stop: 04/16/23 08:59 Last Admin: 03/19/23 08:41 Dose: 81 mg Documented By: Admin: 03/18/23 09:20 Dose: 81 mg Documented By: Admin: 03/17/23 09:08 Dose: 81 mg Documented By: AXEL Buspirone HCl (Buspirone 15 Mg Tab) 15 mg PO BID [facility] Stop: 04/18/23 08:59 Last Admin: 03/19/23 09:41 Dose: 15 mg Documented By: SEDA Cyanocobalamin (Cyanocobalamin (B-12) 500 Mcg Tablet) 1,000 mcg PO QAM [facility] Stop: 04/15/23 08:59 Last Admin: 03/19/23 08:40 Dose: 1,000 mcg Documented By: Admin: 03/18/23 08:51 Dose: 1,000 mcg Documented By: Admin: 03/17/23 09:09 Dose: 1,000 mcg Documented By: Admin: 03/16/23 08:21 Dose: 1,000 mcg Documented By: MAGDALENE Furosemide (Furosemide 20 Mg Tab) 20 mg PO DAILY [facility] Stop: 04/15/23 08:59 Last Admin: 03/16/23 08:22 Dose: 20 mg Documented By: MAGDALENE Insulin Aspart (Insulin Aspart Per Unit Charge) 0 units SC ACHS [facility] Stop: 04/15/23 05:59 Last Admin: 03/19/23 08:39 Dose: 1 units Documented By: SEDA Co-signed By: OLVIN Admin: 03/18/23 21:09 Dose: Not Given Documented By: [id number] Admin: 03/18/23 17:55 Dose: 6 units Documented By: SEDA Co-signed By: CHANDLER Admin: 03/18/23 12:32 Dose: 9 units Documented By: Co-signed By: PRINCE Admin: 03/18/23 08:22 Dose: Not Given Documented By: Admin: 03/17/23 20:36 Dose: 3 units Documented By: ABE Co-signed By: HEMALATHA Admin: 03/17/23 18:04 Dose: Not Given Documented By: Admin: 03/17/23 13:28 Dose: 7 units Documented By: AXEL Co-signed By: MONICA Admin: 03/17/23 09:19 Dose: 2 units Documented By: AXEL Co-signed By: JOSE Admin: 03/16/23 21:47 Dose: Not Given Documented By: [id number] Admin: 03/16/23 17:42 Dose: 15 units Documented By: MAGDALENE Co-signed By: MONICA Admin: 03/16/23 12:50 Dose: 3 units Documented By: MAGDALENE Co-signed By: DON Insulin Glargine (Lantus Per Unit Charge) 25 units SC DAILY [facility] Stop: 04/18/23 08:59 Last Admin: 03/19/23 08:46 Dose: 25 units Documented By: SEDA Co-signed By: OLVIN Ketorolac Tromethamine (Ketorolac 0.5% Op Soln 5 Ml Btl) 1 drops OPB BID [facility] Stop: 04/15/23 08:59 Last Admin: 03/19/23 08:42 Dose: 1 drops Documented By: Admin: 03/18/23 20:09 Dose: 1 drops Documented By: [id number] Admin: 03/18/23 08:52 Dose: 1 drops Documented By: Admin: 03/17/23 20:37 Dose: 1 drops Documented By: Admin: 03/17/23 09:08 Dose: 1 drops Documented By: Admin: 03/16/23 21:56 Dose: 1 drops Documented By: [id number] Admin: 03/16/23 08:22 Dose: 1 drops Documented By: MAGDALENE Labetalol HCl (Labetalol Hcl 100 Mg Tab) 100 mg PO BID [facility] Stop: 04/16/23 08:59 Last Admin: 03/19/23 08:39 Dose: 100 mg Documented By: Admin: 03/18/23 20:10 Dose: 100 mg Documented By: [id number] Admin: 03/18/23 08:50 Dose: 100 mg Documented By: Admin: 03/17/23 20:38 Dose: 100 mg Documented By: Admin: 03/17/23 09:08 Dose: 100 mg Documented By: AXEL Magnesium Oxide (Magnesium Oxide 400 Mg Tab) 400 mg PO DAILY [facility] Stop: 04/15/23 08:59 Last Admin: 03/19/23 08:40 Dose: 400 mg Documented By: Admin: 03/18/23 08:50 Dose: 400 mg Documented By: Admin: 03/17/23 09:09 Dose: 400 mg Documented By: Admin: 03/16/23 08:22 Dose: 400 mg Documented By: MAGDALENE Methimazole (Methimazole 5 Mg Tablet) 5 mg PO QAM [facility] Stop: 04/15/23 08:59 Last Admin: 03/19/23 08:40 Dose: 5 mg Documented By: Admin: 03/18/23 08:50 Dose: 5 mg Documented By: Admin: 03/17/23 09:09 Dose: 5 mg Documented By: Admin: 03/16/23 08:22 Dose: 5 mg Documented By: MAGDALENE Miscellaneous (Carbohydrates For Hypoglycemia ) 15 - 30 gm PO UD PRN PRN Reason: Hypoglycemia Protocol Stop: 04/15/23 01:11 Last Admin: 03/18/23 07:43 Dose: 15 gm Documented By: Pantoprazole Sodium (Pantoprazole 40 Mg Tab) 40 mg PO QAM [facility] Stop: 04/15/23 08:59 Last Admin: 03/19/23 08:40 Dose: 40 mg Documented By: Admin: 03/18/23 08:50 Dose: 40 mg Documented By: Admin: 03/17/23 09:09 Dose: 40 mg Documented By: Admin: 03/16/23 08:22 Dose: 40 mg Documented By: MAGDALENE Rosuvastatin Calcium (Rosuvastatin Calcium 20 Mg Tab) [facility] [place] Stop: 04/17/23 08:59 Last Admin: 03/19/23 08:40 Dose: 20 mg Documented By: Admin: 03/18/23 08:50 Dose: 20 mg Documented By: Venlafaxine HCl (Venlafaxine Hcl Xr 150 Mg Capxr) [facility] [place] Stop: 04/15/23 08:59 Last Admin: 03/19/23 08:40 Dose: 150 mg Documented By: Admin: 03/18/23 08:50 Dose: 150 mg Documented By: Admin: 03/17/23 09:10 Dose: 150 mg Documented By: Admin: 03/16/23 08:22 Dose: 150 mg Documented By: MAGDALENE Discontinued Medications Acetaminophen (Acetaminophen 325 Mg Tab) 650 mg PO NOW STA Stop: 03/15/23 20:31 Last Admin: 03/15/23 20:37 Dose: 650 mg Documented By: RANDY Aspirin (Aspirin Chew 324 Mg) Confirm Administered Dose 324 mg .ROUTE .STK-MED ONE Stop: 03/15/23 21:36 Last Admin: 03/15/23 21:48 Dose: Not Given Documented By: RANDY Aspirin (Aspirin Chew 324 Mg) 324 mg PO NOW STA Stop: 03/15/23 21:39 Last Admin: 03/15/23 21:47 Dose: 324 mg Documented By: RANDY Buspirone HCl (Buspirone 5 Mg Tab) 10 mg PO ONE ONE Stop: 03/15/23 22:19 Last Admin: 03/15/23 22:49 Dose: 10 mg Documented By: RANDY Buspirone HCl (Buspirone 5 Mg Tab) 10 mg PO BID [facility] Stop: 04/15/23 08:59 Last Admin: 03/18/23 21:08 Dose: 10 mg Documented By: [id number] Admin: 03/18/23 08:51 Dose: 10 mg Documented By: Admin: 03/17/23 20:39 Dose: 10 mg Documented By: Admin: 03/17/23 09:09 Dose: 10 mg Documented By: Admin: 03/16/23 21:57 Dose: 10 mg Documented By: [id number] Admin: 03/16/23 08:21 Dose: 10 mg Documented By: MAGDALENE Lactated Ringer's (Lr) 1,000 mls @ 125 mls/hr IV .Q8H [facility] Stop: 03/16/23 17:11 Last Infusion: 03/16/23 17:41 Dose: Infused Documented By: [id number] Admin: 03/16/23 09:41 Dose: 125 mls/hr Documented By: Infusion: 03/16/23 09:37 Dose: Infused Documented By: Admin: 03/16/23 01:37 Dose: 125 mls/hr Documented By: [id number] Magnesium Sulfate/Dextrose (Magnesium Sulfate / D5w) 1 gm in 100 mls @ 50 mls/hr IV ONE ONE Stop: 03/16/23 12:10 Last Infusion: 03/16/23 13:00 Dose: Infused Documented By: Admin: 03/16/23 10:36 Dose: 50 mls/hr Documented By: MAGDALENE Insulin Aspart (Insulin Aspart Per Unit Charge) 0 units SC Q6 [facility] Stop: 04/15/23 05:59 Last Admin: 03/16/23 06:16 Dose: 1 units Documented By: [id number] Co-signed By: VLADISLAV Insulin Glargine (Lantus Per Unit Charge) 20 units SQ BID [facility] Stop: 04/15/23 08:59 Last Admin: 03/16/23 09:40 Dose: 20 units Documented By: MAGDALENE Co-signed By: [email or web address] Insulin Glargine (Lantus Per Unit Charge) 10 units SQ ONE ONE Stop: 03/16/23 14:01 Last Admin: 03/16/23 14:36 Dose: 10 units Documented By: MAGDALENE Co-signed By: MONICA Insulin Glargine (Lantus Per Unit Charge) 0 units SQ BID [facility]; Protocol Stop: 04/15/23 20:59 Last Admin: 03/17/23 20:36 Dose: 30 units Documented By: ABE Co-signed By: HEMALATHA Admin: 03/17/23 09:18 Dose: 20 units Documented By: AXEL Co-signed By: JOSE Admin: 03/16/23 21:57 Dose: 20 units Documented By: [id number] Co-signed By: VLADISLAV Insulin Glargine (Lantus Per Unit Charge) 0 units SC HS [facility]; Protocol Stop: 04/17/23 20:59 Last Admin: 03/18/23 21:09 Dose: 10 units Documented By: [id number] Co-signed By: [facility] Insulin Glargine (Lantus Per Unit Charge) 20 units SC DAILY [facility] Stop: 04/17/23 12:29 Last Admin: 03/18/23 12:32 Dose: 20 units Documented By: Co-signed By: PRINCE Ioversol (Optiray 320 125ml) 119 ml IV ONCE ONE Stop: 03/15/23 18:06 Last Admin: 03/15/23 18:05 Dose: 119 ml Documented By: YOUSIF Labetalol HCl (Labetalol Hcl 200 Mg Tab) 200 mg PO BID [facility] Stop: 04/15/23 08:59 Last Admin: 03/16/23 21:56 Dose: 200 mg Documented By: [id number] Admin: 03/16/23 08:22 Dose: 200 mg Documented By: MAGDALENE Rosuvastatin Calcium (Rosuvastatin Calcium 10 Mg Tab) 10 mg PO QAM [facility] Stop: 04/15/23 08:59 Last Admin: 03/17/23 09:10 Dose: 10 mg Documented By: Admin: 03/16/23 08:22 Dose: 10 mg Documented By: MAGDALENE Description This is a 21 electrode EEG with a single channel dedicated to limited EKG. The electrodes were placed in accordance with the International 10-20 system. Interpretation This is a 21 electrode EEG with a single channel dedicated to limited EKG. The electrodes were placed in accordance with the International 10-20 system. There is a posterior dominant rhythm of 8 to 9 Hz which is symmetrically distributed and attenuates with eye opening. There is a normal anterior to posterior organization. Photic stimulation: unremarkable Hyperventilation performed: _x__ unremarkable; __ not performed. There is no focal slowing. No epileptiform abnormalities. Sleep stage: _x_ not achieved, ___drowsy state, ___ Stage II, ___ REM stage achieved. Interpretation Normal-appearing awake EEG. A normal EEG does not completely exclude a diagnosis of epilepsy. [facility] EEG Procedure Codes Indication for Procedure (1) Word finding difficulty: Neurology Neurology: 42215 EEG include record awake & drowsy
[2023-03-19 15:55] LABS: Appearance Urine Clear (Clear); Bacteria Urine Automated Negative (Negative); Bilirubin Urine Negative (Negative); Blood Urine Negative (Negative); Color Urine Yellow; Epithelial Cell Urine Auto >30 /lpf (0-5); Glucose Urine UA Trace (Negative); Ketones Urine Trace (Negative); Leukocyte Esterase Urine Negative (Negative); Nitrite Urine Negative (Negative); Protein Urine 3+ (Negative); RBC Urine Automated 0-4 /hpf (0-4); Urobilinogen Urine Negative (Negative); pH Urine 5.5 (4.5-7.5)
[2023-03-19] MEDS ORDERED: SODIUM CHLORIDE 0.9% 1,000 ML IV SCH (18:15)
--- NOTE | 2023-03-19 18:23 | Hospitalist Progress Note ---
Date of Service March 19, 2023 Assessment & Plan (1) KEEGAN (acute kidney injury): Plan: creatinine 2.07 on arrival baseline 1.63 improved to 1.7 then samantha to 2.4, 2.4, 2.2 today I ordered urine electrolytes and urinalysis today. No granular casts are noted however Ermelinda calculates to 0.3% consistent with prerenal. Ordered 1 L normal saline recent hypotension, CT contrast and underlying CKD with recent KEEGAN that had resolved and reinitiation and dose increase of lisinopril fairly recently may have contributed CT a/p on 12/07/22 did NOT show any urinary tract pathology, stones, etc we will check a.m. 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 Symptoms lasted 5 minutes or less then fully resolved. Had a 2nd, brief episode over the weekend. CTA head/neck negative. MRI brain negative for acute CVA. Echo without source of thrombus. I cannot rule out TIA. I cannot rule out atypical seizures. No a.fib seen on tele thus far. Started asa 81mg daily in the event these are TIAs. Has numerous cerebrovascular & cardiac risk factors. Increased crestor to 20mg/day. LDL 76 on recent lipid profile. EEG was completed today, reviewed report 03/19 normal EEG (3) Orthostatic hypotension: Plan: markedly orthostatic over the weekend dropped to 76/50 with standing in 2018 when she was hospitalized in the psych unit I actually saw her on consult then and she had orthostasis at that time as well HOLDing amlodipine HOLDing lasix HOLDing lisinopril lowered labetalol dose to 100mg BID from 200mg BID cortisol level wnl repeat orthostatics yesterday and today markedly improved; drop is ~30 points or less; with standing her systolic BP is now about 120 the orthostasis is the likely cause of her chronic dizziness she states that recently she had not been taking care of herself because her was quite ill and in November, this includes not monitoring her diet blood sugar and may be not taking her medications consistently. I wonder if this resulted in her being Inadvertently overmedicated on diuretics and antihypertensives (4) Headaches due 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: Plan: frequent headaches since her fall with head injury in December 2022 these seem to be a post-concussive type syndrome again, during her mental health stay in 2019 for depression, she had headaches during that hospitalization as well she might benefit from prophylaxis - lamictal? depakote? topamax? other? MRI brain negative for acute findings checked sed rate/crp to be complete - both wnl I spoke with psych - they will try to add an antidepressant that has some headache prophylaxis properties (5) Post concussive syndrome: Plan: head injury due to fall in 12/2022 see above (6) Major depressive disorder, recurrent severe without psychotic features: Plan: has been hospitalized for MDD in the past endorses severe depressive symptoms although her affect is full, she is often laughing, etc was on effexor monotherapy inpatient psychiatrist consulted and recommended increase in buspirone to 15 mg twice daily to help with anxiety and augment the effects of the antidepressant, which I ordered (7) Hypertension: Plan: see "orthostatic hypotension" above (8) Diabetes mellitus type 2, uncontrolled: Plan: Pharmacy glycemic consult with recs appreciated current A1c 10.5% - this is related to her not having been controlling her diet or taking her insulin as directed see discussion above basal-bolus insulin per pharmacy had hypoglycemia AM of 03/19, insulins being reduced (9) Hyperthyroidism: Plan: TSH wnl Continue methimazole (10) Elevated troponin: Plan: Troponin 22.5 --> 19.6 no evidence of ACS likely myocardial demand ischemia in setting of the above issues (11) Acute kidney injury superimposed on CKD: Plan: see above (12) Chronic kidney disease, stage IV (severe): Plan: baseline CrCl high 20s baseline Cr upper 1's with significant fluctuations seen over the last few years bmp am (13) Morbid obesity with BMI of 40.0-44.9, adult: Plan: BMI 42 (14) Anemia: Plan: had Fe studies, B12, folate earlier in the fall - all wnl likely anemia of chronic kidney disease the anemia has been present for several years (15) Hypomagnesemia: Plan: replaced resolved 2nd to chronic lasix use (16) Wheezing: Plan: patient states she has albuterol inhaler at home uses prn but has no formal dx of asthma, COPD, etc does not examine volume overloaded cxr at admission negative repeat cxr today without edema or other findings if any worsening consider biofire respiratory panel will schedule albuterol 2 puffs qid no wheezing apparent today Plan PT/OT anshul - passed, can return home at discharge Dr. Gutierrez spoke with pt's daughter by phone 03/18 - gave extensive update Admission and Anticipated Discharge Date Admission Date: March 15, 2023 Subjective Mrs. Mei is really feeling a lot better she is very cheerful I feel stronger. No shortness of breath chest pain or coughing no leg edema no further neurological symptoms Physical Exam 2 Physical Exam: PHYSICAL EXAMINATION Last 24h vital signs reviewed, see documentation in flowsheet General: comfortable appearing, no distress, very pleasant woman sitting up in the chair had been talking on the phone with a good friend HEENT: Normocephalic, atraumatic, pupils round and equal, sclerae anicteric, no conjunctival injection, moist mucus membranes Lungs: Normal respiratory effort. Clear to auscultation bilaterally. No RRW Heart: Regular rate and rhythm, no murmurs. No JVD Abdomen: Soft, nontender, nondistended. Bowel sounds present. Extremities: Warm, dry, well-perfused. No extremity edema. Neuro: Alert and oriented x 4, face symmetric, moves 4 extremities well Psych: Normal affect and behavior Results & Data Results & Data Vital Signs (Past 12 Hours) Vital Signs Temp Pulse Resp BP BP Pulse Ox O2 Del Method 03/19/23 16:07 36.6 C 74 18 106/71 97 Room Air 03/19/23 15:54 70 15 98 Room Air 03/19/23 11:29 74 17 98 Room Air 03/19/23 11:25 36.4 C L 74 18 117/80 99 Room Air 03/19/23 07:17 69 15 Room Air 03/19/23 07:01 36.5 C 65 18 154/76 H 95 Room Air Laboratory Results 03/18/23 05:20 03/19/23 06:50 PG Care Time/CCT Total # of Minutes Spent Total Time Spent with Patient: Total time spent is greater than 50% in coordination of care (as documented) at patient's floor/unit and/or counseling patient: Coding Level of Care Code 73702 SUB INP/OBS CARE 2/35MIN Diagnoses KEEGAN (acute kidney injury) N17.9 Stroke-like symptoms R29.90 Orthostatic hypotension I95.1 Headaches due 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 G44.309; S09.90XS Post concussive syndrome F07.81 Major depressive disorder, recurrent severe without psychotic features F33.2 Hypertension I10 Hypertension type: unspecified Uncontrolled type 2 diabetes mellitus with hyperglycemia E11.65 Glycemic state: with hyperglycemia Hyperthyroidism E05.90 Elevated troponin R79.89 Acute kidney injury superimposed on CKD N17.9; N18.9 Chronic kidney disease, stage IV (severe) N18.4 Morbid obesity with BMI of 40.0-44.9, adult E66.01; Z68.41 Anemia D64.9 Hypomagnesemia E83.42 Wheezing R06.2 (7) Hypertension Hypertension type: unspecified Qualified Code(s): I10 - Essential (primary) hypertension (8) Diabetes mellitus type 2, uncontrolled Glycemic state: with hyperglycemia Qualified Code(s): E11.65 - Type 2 diabetes mellitus with hyperglycemia
[2023-03-20] MEDS: ALBUTEROL HFA 8 GM INHALER INH SCH (07:43)
[2023-03-20] MEDS: LABETALOL HCL 100 MG TAB PO SCH (08:44)
[2023-03-20] MEDS: MAGNESIUM OXIDE 400 MG TAB PO SCH (08:44)
[2023-03-20] MEDS: busPIRone 15 MG TAB PO SCH (08:44)
[2023-03-20] MEDS: VENLAFAXINE HCL XR 150 MG CAPXR PO SCH (08:44)
[2023-03-20] MEDS: ASPIRIN 81 MG ECTAB PO SCH (08:44)
[2023-03-20] MEDS: CYANOCOBALAMIN (B-12) 500 MCG TABLET PO SCH (08:44)
[2023-03-20] MEDS: methIMAzole 5 MG TABLET PO SCH (08:45)
[2023-03-20] MEDS: ROSUVASTATIN CALCIUM 20 MG TAB PO SCH (08:45)
[2023-03-20] MEDS: PANTOprazole 40 MG TAB PO SCH (08:45)
[2023-03-20] MEDS: KETOROLAC 0.5% OP SOLN 5 ML BTL OPB SCH (08:45)
[2023-03-20] MEDS: INSULIN ASPART PER UNIT CHARGE SC SCH ×2 (08:48→12:37)
[2023-03-20] MEDS: LANTUS PER UNIT CHARGE SC SCH (08:48)
[2023-03-20 08:58] LABS: BUN Creatinine Ratio 22.8 (10-20); Calcium 8.5 mg/dl (8.6-10.3); Creatinine Clr Calc Pharmacy 21.7 ml/min; Est GFR (African American) 23.4 ml/min; Est GFR (Non-African American) 20.2 ml/min; Potassium 4.8 mmol/L (3.5-5.1)
[2023-03-20] MEDS ORDERED: ALBUTEROL HFA 8 GM INHALER INH PRN (10:32)
--- NOTE | 2023-03-20 18:13 | Discharge Summary ---
Date of Service March 20, 2023 Admission HPI Per Admitting Provider Elida is a pleasant 72-year-old female with PMH of anxiety, CKD stage III, T2DM, GERD, HTN, dyslipidemia, hypothyroidism, and depression. She presented for a feeling of generalized weakness (at home glucose monitor read 397mg/dL this morning). She also reports that she fell a couple months ago and hit the right side of her forehead. Since then she has noticed that she has been having headaches, word finding difficulties, occasional difficulty talking, difficulty driving due to blurry vision, and the symptoms are getting worse. Patient does not know exactly how she fell, however, she notes that she struck her head; no LOC; no blood thinners; ground-level fall. Patient is not using ambulation device at baseline. Patient reports that she tripped on a step between the living room in the kitchen; her shoe caught the step and she fell forward. While in the ED, the patient was a stroke alert during an episode of facial droop and aphasia that lasted approximately 5-10min. She was sent back for pebbles tional CT and CT angiography testing. Patient was A&O x 3 following the stroke alert. She reports that she did not lose consciousness, but could not speak. She denies numbness or tingling in the face. She denies having any one-sided deficits at the time. Patient took all of her morning medications. She denies recent changes to medication. She lives with her daughter, Lorrie. Her (Dre) in November 2022. She has not had any recent eye doctor appointments; and she has no history of wearing glasses or contacts for blurry vision. Patient is hypertensive at 189/92 at time of admission. ED course: Acetaminophen 650 mg p.o. IVF ROS: Patient endorses blurry vision, KOHLER, dizziness, confusion, difficulty with word finding, and tremor/shaking. Patient denies memory loss, changes in hearing/smell/taste, fever, chills, chest pain, pleuritic CP, SOB, abdominal pain, N/V/D, urinary s/s, blood in the urine/stool, burning with urination, or numbness/tingling going down legs. Patient denies prior hx of CVA, ID, DVT/PE, cancer Principal Diagnosis Possible TIA, KEEGAN on CKD stage 4, orthostatic hypotension, depression Discharge Exam PHYSICAL EXAMINATION Last 24h vital signs reviewed, see documentation in flowsheet General: sitting up in chair at window HEENT: Normocephalic, atraumatic, pupils round and equal, sclerae anicteric, no conjunctival injection, moist mucus membranes Lungs: Normal respiratory effort. Heart: deferred Abdomen: nondistended. Extremities: Warm, dry, well-perfused. No extremity edema. Neuro: Alert and oriented x 4, face symmetric, moves 4 extremities well Psych: makes eye contact, engaging, normal affect and normal behavior Discharge Data Allergies Allergy/AdvReac Type Severity Reaction Status Date / Time No Known Allergies Allergy Verified 02/26/23 12:56 Consultations 03/15/23 19:37 ED Decision to Admit Stat 03/17/23 16:04 Consult Behavioral Health Liaison Routine Consult Psychiatry Routine Ordered Studies 03/15/23 17:48 CT angio head w con Stat CT angio neck with con Stat CT head/brain wo con Stat Chest X-Ray 03/15/23 17:10 XR chest 1V portable CLINICAL HISTORY: weakness COMPARISON STUDY: Chest radiograph January 26, 2023. FINDINGS: Lung volumes are normal. Lungs are clear. There is no pneumothorax or pleural effusion. There is mild cardiomegaly. Mediastinal contours are normal. There is no evidence for pulmonary edema. IMPRESSION: No acute cardiopulmonary findings. No significant change in appearance of the chest. ACT 112: Negative or not required by law. Electronically signed by: Walt Zuniga M.D. 03/15/2023 6:[address] 03/15/23 17:48 CT OF THE HEAD WITHOUT CONTRAST CLINICAL HISTORY: neuro deficit, acute stroke suspected COMPARISON STUDY: Head CT January 26, 2023. MRI of the brain performed earlier today. TECHNIQUE: Helical axial images of the head were obtained without IV contrast. Automated exposure control was utilized for the study. A dose lowering technique was utilized adhering to the principles of ALARA. FINDINGS: This study is mildly compromised by motion artifact. White matter hypodensities are unchanged and favor small vessel disease. No acute intracranial hemorrhage, midline shift or mass effect is present. The ventricular system is unremarkable. The basal cisterns are patent. No extra- axial collections are present. There are no findings to suggest acute dural sinus thrombosis or acute territorial infarct. No significant calvarial abnormalities are present. Small amount of fluid within the right mastoid air cells is unchanged. IMPRESSION: No acute intracranial findings. No change in appearance of the brain. ACT 112: Negative or not required by law. Electronically signed by: Walt Zuniga M.D. 03/15/2023 6:17 PM Head CTA 03/15/23 17:48 CTA ANGIOGRAPHY OF THE HEAD CLINICAL HISTORY: neuro deficit, acute stroke suspected COMPARISON STUDY: Head CT January 26, 2023. MRI of the brain performed earlier today. TECHNIQUE: Helical axial images of the head were obtained following uneventful intravenous administration of 119 cc of Optiray. Sagittal and coronal reconstructions were viewed as well as maximal intensity projections on an independent 3-D workstation. Automated exposure control was utilized for the study. A dose lowering technique was utilized adhering to the principles of ALARA. CT DOSE: 1104.7 mGy.cm FINDINGS: No acute intracranial hemorrhage was identified on the unenhanced head CT which will be reported separately. Ventricular system is unremarkable. Basal cisterns are patent. There are no extra-axial collections. A small amount of fluid within the right mastoid air cells remains unchanged. Moderate plaque within the cavernous carotids is noted. There is no significant stenosis. The bilateral M1, M2, A1 and A2 segments are patent. Posterior circulation is intact. There is no central vessel occlusion. There is no intracranial aneurysm. Major dural sinuses are patent. IMPRESSION: No large vessel occlusion. No intracranial aneurysm. ACT 112: Negative or not required by law. Electronically signed by: Walt Zuniga M.D. 03/15/2023 6:25 PM Neck CTA 03/15/23 17:48 CT ANGIOGRAPHY OF THE NECK WITH CONTRAST CLINICAL HISTORY: neuro deficit, acute stroke suspected COMPARISON STUDY: No previous studies for comparison. Technique: CT angiography of the carotid and vertebral arteries was obtained using Optiray and 3D reconstruction on an independent workstation. NASCET criteria was utilized. Automated exposure control was utilized for the study. A dose lowering technique was utilized adhering to the principles of ALARA. Findings: Visualized portions of the lung apices are unremarkable. There is no cervical lymphadenopathy. There is no cervical spine fracture. The bilateral common carotid, cervical internal carotid and vertebral arteries are patent. There is minimal plaque within the proximal right internal carotid artery without stenosis. There is no dissection or aneurysm within the neck. IMPRESSION: Unremarkable CTA of the neck. ACT 112: Negative or not required by law. Electronically signed by: Walt Zuniga M.D. 03/15/2023 6:22 PM Chest X-Ray 03/18/23 16:45 TWO VIEW CHEST CLINICAL HISTORY: Right-sided wheezing. FINDINGS: PA and lateral chest radiographs are compared to study dated 03/15/2023. Correlation is made with chest CT dated 04/02/2022. The heart is enlarged measuring atherosclerotic calcification of the thoracic aorta. The pulmonary vasculature is noncongested. Chronic interstitial thickening similar to previous. There is mild bibasilar scarring/atelectasis. The lungs and pleural spaces are otherwise clear. There is no pneumothorax. The skeletal structures are osteopenic. The bony thorax appears intact. Cholecystectomy clips are noted in the upper abdomen. IMPRESSION: Cardiomegaly with no active disease in the chest. ACT 112: Negative or not required by law. Electronically signed by: Arnulfo Saravia M.D. 03/18/2023 6:24 PM Diabetes Follow up Diabetes Follow-up Needed for HgbA1c >9% Primary care. She states she had not been taking her insulin regularly until very recently and intends to continue doing so now. States control is good on current doses when she does take it as directed. Hospital Course (1) KEEGAN (acute kidney injury): creatinine 2.07 on arrival baseline 1.63 improved to 1.7 after fluids then samantha to 2.4. Remained relatively static, no granular casts on UA and Fena 0.3% suggestive of prerenal however improved only to 2.2-2.3 after challenge with additional IV fluids given. recent hypotension, CT contrast and underlying CKD with recent KEEGAN that had just resolved and reinitiation and dose increase of lisinopril fairly recently may have contributed CT a/p on 12/07/22 did NOT show any urinary tract pathology, stones, etc Held lisinopril on discharge, held lasix and told to use PRN, discussed with Dr. Paige her plant facilities technician with whom she will follow up. (2) Stroke-like symptoms: Episode of facial droop & aphasia in the ER. Symptoms lasted 5 minutes or less then fully resolved. Had a 2nd, brief episode over the weekend. CTA head/neck negative. MRI brain negative for acute CVA. Echo without source of thrombus. EEG 03/19 was normal. I cannot rule out TIA. I cannot rule out atypical seizures. No a.fib seen on tele Started asa 81mg daily in the event these are TIAs. Has numerous cerebrovascular & cardiac risk factors. Increased crestor to 20mg/day. LDL 76 on recent lipid profile. (3) Orthostatic hypotension: markedly orthostatic over the weekend dropped to 76/50 with standing in 2019 when she was hospitalized in the psych unit I actually saw her on consult then and she had orthostasis at that time as well stopped amlodipine HOLDing lasix - PRN use only at discharge, resume as outpatient if necessary HOLDing lisinopril - resume as outpatient per plant facilities technician when KEEGAN recovered lowered labetalol dose to 100mg BID from 200mg BID cortisol level wnl repeat orthostatics markedly improved; BPs remained controlled systolics mostly in 120-130 range. the orthostasis is the likely cause of her chronic dizziness she states that recently she had "not been taking care of herself" because her was quite ill and in November, this includes not monitoring her diet, blood sugar, not taking her insulin and medications consistently. I believe this resulted in her being inadvertently overmedicated on diuretics and antihypertensives. (4) Headaches due 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: frequent headaches since her fall with head injury in December 2022 these seem to be a post-concussive type syndrome again, during her mental health stay in 2019 for depression, she had headaches during that hospitalization as well she might benefit from prophylaxis if this continues, however no complaint of headaches last two days after medication adjustments. MRI brain negative for acute findings checked sed rate/crp to be complete - both wnl (5) Post concussive syndrome: head injury due to fall in 12/2022 see above (6) Major depressive disorder, recurrent severe without psychotic features: has been hospitalized for MDD in the past endorses severe depressive symptoms although her affect is full, she is often laughing, etc was on effexor monotherapy inpatient psychiatrist consulted and recommended increase in buspirone to 15 mg twice daily to help with anxiety and augment the effects of the antidepressant. She notes some early improvement. (7) Hypertension: see "orthostatic hypotension" above medications reduced (8) Diabetes mellitus type 2, uncontrolled: current A1c 10.5% - this is related to her not having been controlling her diet or taking her insulin as directed see discussion above she states that when she does take her 70/30 40 units bid as prescribed her blood sugar has been well controlled. Thus I did not change her dose. she states intent to take her insulin and check her blood sugar twice a day going forward she will follow up in primary care (9) Hyperthyroidism: TSH wnl Continue methimazole (10) Elevated troponin: Troponin 22.5 --> 19.6 no evidence of ACS likely myocardial demand ischemia in setting of the above issues (11) Acute kidney injury superimposed on CKD: see above (12) Chronic kidney disease, stage IV (severe): baseline CrCl high 20s baseline Cr upper 1's with significant fluctuations seen over the last few years follows with Dr. Paige (13) Morbid obesity with BMI of 40.0-44.9, adult: BMI 42 (14) Anemia: had Fe studies, B12, folate earlier in the fall - all wnl likely anemia of chronic kidney disease the anemia has been present for several years (15) Hypomagnesemia: replaced resolved (16) Wheezing: patient states she has albuterol inhaler at home uses prn but has no formal dx of asthma, COPD, etc does not examine volume overloaded cxr at admission negative repeat cxr without edema or other findings resolved with albuterol Total Time Total Time Spent Total Time Spent (In Minutes): 45 minutes spent coordinating care for discharge including reviewing chart notes, vitals, labs/studies, discussion with plant facilities technician, examining and counseling patient, writing discharge orders and documentation. Discharge Plan Discharge Items Patient Disposition: Home - Self-Care Reason For Visit: HYPERGLYCEMIA, FALL, STROKE ALERT Discharge Diagnosis: possible TIA, depression, KEEGAN on CKD Activity: Resume your previous activity Non-emergency contact: Primary Care Provider and Process Control Tech Call non-emergency contact if: you have any medication questions and your s ymptoms worsen Follow-up/Referrals: Ramirez Villela CRNP [Primary Care Provider] - 04/03/23 8:20 am Donna Paige MD [Physician] - 03/25/23 2:40 pm (In the [place] office) Diet: Carb Consistent or DM2 Addtl Attending Provider Instructions: You were evaluated for transient neurological symptoms. Brain MRI was negative for stroke. EEG was negative for seizures It is possible you had a TIA (temporary stroke-like event) -because of this the neurologist recommended that you take aspirin 81 mg daily (buy over the counter) and increase rosuvastatin to 20 mg daily Your blood pressure was extremely low on your usual home meds, especially with standing. It is much better on less meds -stop amlodipine -we reduced the dose of labetalol -HOLD your lisinopril and HOLD furosemide (lasix) for the time being - Dr. Paige or your primary care doctor will tell you when/if to restart these -you can take a dose of furosemide (lasix) daily as needed for leg swelling Make an appointment as soon as possible with primary care and Dr. Paige. You should have your labs checked for your kidney function when you follow up The psychiatrist recommended increasing the dose of buspirone for depression and anxiety It was a pleasure taking care of you in the hospital Bernice Blackmon MD Pending Studies at Discharge: No Stand-Alone Forms: My [facility] Campaign Monitor, Smoking Cessation, Medications to Prevent Stroke Medications and DC Order Prescriptions: New labetalol 100 mg Tablet 100 mg PO BID Qty: 60 0RF rosuvastatin [Crestor] 20 mg Tablet 20 mg PO QAM Qty: 30 0RF buspirone 15 mg Tablet 15 mg PO BID Qty: 60 0RF aspirin 81 mg Tablet,Delayed Release (Dr/Ec) 81 mg PO QAM Qty: 0 0RF Rx Instructions: buy over the counter, for stroke prevention Continued calcitriol 0.25 mcg capsule 0.25 mcg PO 3XWK Qty: 36 3RF Rx Instructions: Saturday, Saturday, Saturday in the morning venlafaxine [Effexor XR] 150 mg capsule,extended release 24hr 150 mg PO QAM Qty: 90 1RF pantoprazole 40 mg tablet,delayed release (DR/EC) 40 mg PO QAM Qty: 90 1RF (DME) Accu-Chek Guide test strips Strip See Rx Instructions .Route Qty: 100 5RF Rx Instructions: Test blood sugar TID magnesium oxide 400 mg (241.3 mg magnesium) tablet 400 mg PO DAILY Qty: 30 1RF (DME) lancets [Accu-Chek Softclix Lancets] Misc See Rx Instructions .Route Qty: 200 3RF Rx Instructions: As directed; BS TID (DME) blood-glucose meter [Accu-Chek Guide Glucose Meter] Misc See Rx Instructions .Route Qty: 1 0RF Rx Instructions: As directed; BS TID acetaminophen 500 mg Tablet 1,000 mg PO Q6H PRN (Reason: Pain) ketorolac 0.5 % drops 1 drp OPB BID cyanocobalamin (vitamin B-12) 500 mcg Tablet 1,000 mcg PO QAM Qty: 60 0RF Rx Instructions: OTC methimazole 10 mg tablet 5 mg PO QAM Qty: 90 1RF Novolin 70/30 U-100 Insulin 100 unit/mL (70-30) suspension 40 unit subcut BID albuterol sulfate 90 mcg/actuation HFA aerosol inhaler 2 inh inhalation Q6H PRN (Reason: Shortness Of Breath Or Wheezing) Rx Instructions: PER PT "USUALLY USE BID, EVERY DAY, THEN PRN". Held lisinopril 20 mg tablet 20 mg PO DAILY Qty: 90 3RF Hold Instructions: Resume on 04/17/23. hold until restarted by Dr. Paige furosemide 20 mg tablet 20 mg PO DAILY Hold Instructions: Resume on 04/24/23. until resumed by Dr. Paige Discontinued rosuvastatin 10 mg tablet 10 mg PO QAM Qty: 90 1RF labetalol 200 mg tablet 200 mg PO BID Qty: 180 3RF amlodipine 5 mg tablet 10 mg PO DAILY Qty: 90 1RF Hold Instructions: Resume on 02/05/23. HOLD until your doctor tells you to restart. buspirone 5 mg tablet 10 mg PO BID Discharge Orders: Discharge Order (Routine); Ordered 03/20/23 Ordered By: Bernice Moody/Other Patient Handouts: Managing Type 2 Diabetes Admission Data Admit Date/Time: 03/15/23 21:20 Attending Provider: Bernice Blackmon Admit Provider: Bryan Garcia Primary Care Provider: Ramirez Villela Other Providers: Bryan Garcia; Yakov Elizabeth; Asad Birto [facility] Other Interventions: Discharge Summary Assessment (RN) Last Done: 03/20/23 12:56 Coding Level of Care Code 68331 INP/OBS DISCH >30 MIN Diagnoses KEEGAN (acute kidney injury) N17.9 Stroke-like symptoms R29.90 Orthostatic hypotension I95.1 Headaches due 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 G44.309; S09.90XS Post concussive syndrome F07.81 Major depressive disorder, recurrent severe without psychotic features F33.2 Hypertension I10 Hypertension type: unspecified Uncontrolled type 2 diabetes mellitus with hyperglycemia E11.65 Glycemic state: with hyperglycemia Hyperthyroidism E05.90 Elevated troponin R79.89 Acute kidney injury superimposed on CKD N17.9; N18.9 Chronic kidney disease, stage IV (severe) N18.4 Morbid obesity with BMI of 40.0-44.9, adult E66.01; Z68.41 Anemia D64.9 Hypomagnesemia E83.42 Wheezing R06.2
== END 2023-03-20 14:19 | disposition home health service (06) | DRG 69 ==
LOC: SUATTDRO → ED 16:53 → SUATTDRO 21:20 → 4W 21:20
DX: Z83.3 Family history of diabetes mellitus; R29.810 Facial weakness; F07.81 Postconcussional syndrome; Z68.41 Body mass index [BMI] 40.0-44.9, adult; I95.1 Orthostatic hypotension; D63.1 Anemia in chronic kidney disease; I24.89 Other forms of acute ischemic heart disease; Z63.4 Disappearance and death of family member; E11.22 Type 2 diabetes mellitus with diabetic chronic kidney disease; E05.90 Thyrotoxicosis, unspecified without thyrotoxic crisis or storm; N17.9 Acute kidney failure, unspecified; Z66 Do not resuscitate; N18.4 Chronic kidney disease, stage 4 (severe); E83.42 Hypomagnesemia; R47.01 Aphasia; I12.9 Hypertensive chronic kidney disease with stage 1 through stage 4 chronic kidney disease, or unspecified chronic kidney disease; E66.01 Morbid (severe) obesity due to excess calories; F33.41 Major depressive disorder, recurrent, in partial remission; Z79.4 Long term (current) use of insulin; G44.329 Chronic post-traumatic headache, not intractable; I50.32 Chronic diastolic (congestive) heart failure; G31.84 Mild cognitive impairment of uncertain or unknown etiology; G45.9 Transient cerebral ischemic attack, unspecified

== ENCOUNTER 2023-08-27 11:10 | Observation (INO) ==
[2023-08-27 11:54] LABS: Basophils # (auto) 0.06 K/uL (0.00-0.20); Basophils % (auto) 0.4 %; Eosinophils # (auto) 0.08 K/uL (0.00-0.50); Eosinophils % (auto) 0.5 %; Hematocrit (blood only) 33.3 % (37.0-47.0); Hemoglobin 10.9 g/dl (12.0-16.0); Immature Granulocytes # (auto) 0.06 K/uL (0.01-0.20); Immature Granulocytes % (auto) 0.4 %; Lymphocytes # (auto) 1.05 K/uL (1.20-3.40); Lymphocytes % (auto) 6.8 %; Mean Corpuscular Hemoglobin 31.4 pg (25.0-34.0); Mean Corpuscular Hgb Conc 32.7 g/dL (32.0-36.0); Mean Platelet Volume 10.4 fL (9.4-12.4); Monocytes # (auto) 1.67 K/uL (0.11-0.59); Monocytes % (auto) 10.9 %; Neutrophils # (auto) 12.42 K/uL (1.40-6.50); Platelet Count 332 K/uL (130-400); RDW Coefficient of Variation 13.9 % (11.5-14.5); RDW Standard Deviation 46.5 fL (36.4-46.3); Red Blood Count 3.47 M/uL (4.20-5.40); White Blood Count 15.34 K/ul (4.8-10.8)
[2023-08-27 12:14] LABS: Alanine Aminotransferase 7 U/L (7-52); Albumin Globulin Ratio 0.9 (0.9-2); Albumin Level 3.6 gm/dl (3.4-5.0); Alkaline Phosphatase 73 U/L (34-104); Anion Gap 10 (3-11); Aspartate Aminotransferase 11 U/L (13-39); BUN Creatinine Ratio 20.4 (10-20); Bilirubin,Total 0.7 mg/dl (0.2-1.0); Blood Urea Nitrogen 48 mg/dl (6-23); Calcium 9.6 mg/dl (8.6-10.3); Carbon Dioxide 24 mmol/L (21-32); Chloride 100 mmol/L (98-107); Est GFR (Non-African American) 19.9 ml/min; Globulin 3.8 gm/dl (2.5-4.0); Glucose 196 mg/dl (70-99(Fasting)); Potassium 4.8 mmol/L (3.5-5.1); Sodium 134 mmol/L (136-145); Total Protein 7.4 gm/dl (6.0-8.3)
--- NOTE | 2023-08-27 13:00 | Emergency Department Note ---
History of Present Illness General Chief complaint: Dehydration Stated complaint: POSSIBLE DEHYDRATION Time Seen by Provider: 08/27/23 12:37 Source: patient, family (Daughter who is at the bedside), RN notes reviewed and old records reviewed (05/14/2023-primary care office visit for follow-up on chronic medical problems) Mode of arrival: ambulatory Limitations: no limitations History of Present Illness Maximum Pain Intensity: 8 This patient is a 72-year-old female has a history of diabetes, cardiac disease and renal insufficiency, comes in feeling "absolutely plate out" she has been very tired and weak she says she has no energy or desire to do anything her appetites been decreased she is concerned she could be dehydrated. She has had some chronic back pain for years she is schedule of appointment for shot later this month. She has no focal numbness or weakness no fever she has a chronic cough which is unchanged no dysuria hematuria no blood or melena in her stool questionable blood in her urine has been dark at times. No pain or swelling in her legs. No fall or injury. She had a headache last night which is typical for migraines but no headache at present Home Medications Medication Instructions Recorded Confirmed Type acetaminophen 500 mg tablet 1,000 mg PO Q6H PRN Pain 06/19/21 08/27/23 History lancets (Accu-Chek Softclix #200 ea 04/27/22 07/25/23 Rx Lancets) blood sugar diagnostic (Accu-Chek #100 ea 01/30/23 07/25/23 Rx Guide test strips) blood-glucose meter (Accu-Chek #1 ea 02/13/23 07/25/23 Rx Guide Glucose Meter) aspirin 81 mg tablet,delayed 81 mg PO QAM #0 tabs 03/20/23 08/27/23 Rx release flash glucose sensor (FreeStyle #2 ea 04/19/23 07/25/23 Rx Darek 14 Day Sensor kit) rosuvastatin 20 mg tablet (Crestor) 20 mg PO QAM #90 tabs 04/24/23 08/27/23 Rx methimazole 10 mg tablet 5 mg (1/2 x 10 mg) PO QAM #90 tabs 05/13/23 08/27/23 Rx Incentive Spirometer #1 ea 05/14/23 07/25/23 Rx buspirone 15 mg tablet 15 mg PO BID #60 tabs 02/07/24 05/21/24 Rx lisinopril 40 mg tablet 40 mg PO DAILY #90 tabs 05/23/23 08/27/23 Rx venlafaxine 150 mg 150 mg PO QAM #90 caps 05/27/23 08/27/23 Rx capsule,extended release 24 hr (Effexor XR) amlodipine 5 mg tablet 5 mg PO HS #90 tabs 06/12/23 08/27/23 Rx labetalol 200 mg tablet 200 mg PO BID #60 tabs 06/12/23 08/27/23 Rx magnesium oxide 400 mg (241.3 mg 400 mg PO DAILY #30 tabs 06/12/23 08/27/23 Rx magnesium) tablet insulin glargine 100 unit/mL 46 unit subcut QAM 06/18/23 08/27/23 History subcutaneous solution (Lantus U-100 Insulin) ergocalciferol (vitamin D2) 1,250 50,000 unit PO WEEKLY #12 caps 06/19/23 08/27/23 Rx mcg (50,000 unit) capsule pantoprazole 40 mg tablet,delayed 40 mg PO QAM #90 tabs 06/25/23 08/27/23 Rx release empagliflozin 10 mg tablet 10 mg PO DAILY #90 tabs 07/25/23 08/27/23 Rx (Jardiance) furosemide 20 mg tablet 20 mg PO DAILY #90 tabs 08/06/23 08/27/23 Rx calcitriol 0.25 mcg capsule 0.25 mcg PO 3XWK #36 caps 08/19/23 08/27/23 Rx ascorbic acid (vitamin C) 1,000 mg 1,000 mg PO QAM 08/27/23 08/27/23 History tablet (C-1000) Allergies Allergy/AdvReac Type Severity Reaction Status Date / Time No Known Allergies Allergy Verified 08/27/23 16:15 Past Med/Surg History Problem List Word finding difficulty Major depressive disorder, recurrent, in partial remission Headaches due 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 Anemia Morbid obesity with BMI of 40.0-44.9, adult Chronic kidney disease, stage IV (severe) Post concussive syndrome Weakness (Acute) TIA (transient ischemic attack) (Acute) Anxiety CKD (chronic kidney disease) stage 3, GFR 30-59 ml/min Diastolic CHF MCI (mild cognitive impairment) Early satiety Iron deficiency anemia Secondary hyperparathyroidism Acute kidney injury superimposed on CKD (Acute) Fatigue Recurrent UTI Ketonuria (Acute) Diabetic nephropathy associated with type 2 diabetes mellitus Left cataract Vitamin D deficiency Nephrotic syndrome GERD without esophagitis Arthritis Hypertension Diabetes mellitus type 2, uncontrolled IDDM Dyslipidemia HNP (herniated nucleus pulposus), lumbar Hyperthyroidism Medical History Vasovagal episode Melanoma of nose Major depressive disorder, recurrent severe without psychotic features Surgical History Status post trigger finger release History of repair of left rotator cuff History of repair of right rotator cuff History of colonoscopy History of melanoma excision History of tooth extraction all teeth removed History of bilateral cataract extraction S/P tonsillectomy S/P tubal ligation S/P cholecystectomy Family History Father Prostate cancer Diabetes Myocardial infarction Lung cancer Mother Diabetes Alzheimer disease Myocardial infarction Hypertension Brother COPD (chronic obstructive pulmonary disease) Other No family history of adverse response to anesthesia Denies family history of Ovarian cancer Breast cancer Colorectal cancer Social History Smoking Status: Never smoker Second Hand Exposure: No; Do You Dip or Chew Tobacco: No; Hx Alcohol Use: No Hx Substance Use: No Preferred Language: Ivorian Communication Ability: Effective Communication Ability Comment: Reports difficulty reading now r/t dizziness Visual Impairment: No Limitations Hearing Ability: Normal Roll On Worker Required: No Beliefs That Will Affect Care: None marital status: Current Living Situation: Family Current Living Situation Comment: Lives with Lorrie breaux current occupational status: retired current occupation: retired - worked at [email or web address] Feels Safe at Home: Yes Childhood Exposure to Second-Hand Smoke: No Diet: regular caffeine: Yes (Soda x 10 cans per day.) during the past year weight has: remained stable Dental Care, Regularly: No Physical Activity Frequency: Daily Physical Activity Frequency Comment: house chores Seatbelt Use: always Sunscreen Use: No Assistive Devices: Cane, Walker and Wheelchair Review of Systems A total of 10 systems reviewed and were otherwise negative Physical Exam Vital Signs Vital Signs - 24 hr 08/27/23 11:13 08/27/23 12:47 08/27/23 13:54 Temperature 36.7 C Temperature Source Temporal Artery Scan Pulse Rate 68 Pulse Rate [Left Finger] 62 64 Respiratory Rate 18 19 20 Respiratory Effort / Characteristics Non-Labored Respiratory Depth Normal Blood Pressure 154/73 H Blood Pressure [Left Arm] 144/85 H 156/62 H Blood Pressure Mean 100 Blood Pressure Mean [Left Arm] 104 93 Blood Pressure Position [Left Arm] Pulse Oximetry 97 96 96 Oxygen Delivery Method Room Air Room Air Room Air Sepsis Recent Fever Within 48 Hours No Sepsis New/Unexplained Change in Mental Status N/A Sepsis Action Taken by Nursing No Action Required 08/27/23 15:00 08/27/23 17:00 Temperature 37.2 C Temperature Source Oral Pulse Rate Pulse Rate [Left Finger] 67 74 Respiratory Rate 20 18 Respiratory Effort / Characteristics Respiratory Depth Blood Pressure Blood Pressure [Left Arm] 172/77 H 194/81 H Blood Pressure Mean Blood Pressure Mean [Left Arm] 108 118 Blood Pressure Position [Left Arm] Semi-fowlers Pulse Oximetry 98 97 Oxygen Delivery Method Room Air Room Air Sepsis Recent Fever Within 48 Hours Sepsis New/Unexplained Change in Mental Status Sepsis Action Taken by Nursing General: Well developed well nourished older female who appears in no acute distress, breathing comfortably on room air. Normal speech HEENT: Normal cephalic atraumatic. Pupils are equal round and reactive to light. Extraocular movements are intact. Oropharynx is pink with moist mucous membranes. No swelling of the mouth lips or tongue. Neck: Supple with a midline trachea. No meningeal signs or stiffness, no JVD or bruits. No Stridor. Chest: Clear to auscultation bilaterally. No wheezes or rhonchi. No increased work of breathing. Heart: Regular rate and rhythm without murmurs or gallops. Abdomen: Soft nontender, nondistended without rebound guarding or rigidity. Extremities: No cyanosis clubbing or edema. No calf tenderness or assymetry Spine/Back. Non tender to palpation. No CVA tenderness Skin: Good turgor without rashes. Neurologic exam: Cranial nerves two through 12 are intact. Motor and sensation are intact and symmetrical throughout. Course Administered Medications Discontinued Medications Ceftriaxone Sodium (Rocephin) 2,000 mg in 50 mls @ 100 mls/hr IV NOW STA Stop: 08/27/23 15:00 Last Infusion: 08/27/23 15:10 Dose: Infused Documented By: Admin: 08/27/23 14:40 Dose: 100 mls/hr Documented By: EDGARDO Medical Decision Making Differential Diagnosis Diabetic complication, dehydration, electrolyte or metabolic abnormality, infection, sepsis, UTI, kidney stone, intra-abdominal process, spinal disease, toxicologic, pulmonary disease Medical Records Attestation: I reviewed the patient's medical records. Home Medications Current Medication List: was personally reviewed by me Laboratory Data Attestation: I reviewed the patient's lab results. 08/27/23 11:33 08/27/23 11:33 Lab Results 08/27/23 08/27/23 08/27/23 Range/Units 11:33 12:44 13:30 WBC 15.34 H (4.8-10.8) K/ul RBC 3.47 L (4.20-5.40) M/uL Hgb 10.9 L (12.0-16.0) g/dl Hct 33.3 L (37.0-47.0) % MCV 96.0 (80.0-100.0) fL MCH 31.4 (25.0-34.0) pg MCHC 32.7 (32.0-36.0) g/dL RDW Std Deviation 46.5 H (36.4-46.3) fL RDW Coeff of Emil 13.9 (11.5-14.5) % Plt Count 332 (130-400) K/uL MPV 10.4 (9.4-12.4) fL Immature Gran % (Auto) 0.4 % Neut % (Auto) 81.0 % Lymph % (Auto) 6.8 % Rose[place] % (Auto) 10.9 % Eos % (Auto) 0.5 % Baso % (Auto) 0.4 % Neut # (Auto) 12.42 H (1.40-6.50) K/uL Lymph # (Auto) 1.05 L (1.20-3.40) K/uL [place] # (Auto) 1.67 H (0.11-0.59) K/uL Eos # (Auto) 0.08 (0.00-0.50) K/uL Baso # (Auto) 0.06 (0.00-0.20) K/uL Immature Gran # (Auto) 0.06 (0.01-0.20) K/uL Sodium 134 L (136-145) mmol/L Potassium 4.8 (3.5-5.1) mmol/L Chloride 100 (98-107) mmol/L Carbon Dioxide 24 (21-32) mmol/L Anion Gap 10 (3-11) BUN 48 H (6-23) mg/dl Creatinine 2.35 H (0.6-1.2) mg/dl Est Cr Clr Drug Dosing Not Reportable Est GFR ( Amer) 23.0 ml/min Est GFR (Non-Af Amer) 19.9 ml/min BUN/Creatinine Ratio 20.4 H (10-20) Glucose 196 H (70-99(Fasting)) mg/dl Lactate (0.4-2.0) mmol/L Calcium 9.6 (8.6-10.3) mg/dl Total Bilirubin 0.7 (0.2-1.0) mg/dl AST 11 L (13-39) U/L ALT 7 (7-52) U/L Alkaline Phosphatase 73 (34-104) U/L Troponin I High Sens (0-14) pg/ml B-Natriuretic Peptide (0-100) pg/ml Total Protein 7.4 (6.0-8.3) gm/dl Albumin 3.6 (3.4-5.0) gm/dl Globulin 3.8 (2.5-4.0) gm/dl Albumin/Globulin Ratio 0.9 (0.9-2) Urine Color Yellow Urine Appearance Turbid A (Clear) Urine pH 5.5 (4.5-7.5) Ur Specific [place] 1.018 (1.000-1.030) Urine Protein 3+ H (Negative) Urine Glucose (UA) 3+ H (Negative) Urine Ketones Trace H (Negative) Urine Blood 1+ H (Negative) Urine Nitrite Negative (Negative) Urine Bilirubin Negative (Negative) Urine Urobilinogen Negative (Negative) Ur Leukocyte Esterase 1+ H (Negative) Urine WBC (Auto) >50 H (0-5) /hpf Urine RBC (Auto) 0-2 (0-2) /hpf U Hyaline Cast (Auto) 11-20 H (0-2) /lpf U Epithel Cells (Auto) >20 H (0-2) /hpf Urine Bacteria (Auto) 4+ H (None Seen) Adenovirus (PCR) Not Detected (NotDetected) B. pertussis DNA (PCR) Not Detected (NotDetected) B.parapertussis DNA PCR Not Detected (NotDetected) C. pneumoniae DNA (PCR) Not Detected (NotDetected) Coronavirus OC43 (PCR) Not Detected (NotDetected) Coronavirus HKU1 (PCR) Not Detected (NotDetected) Coronavirus 229E (PCR) Not Detected (NotDetected) SARS-CoV-2 (PCR) Not Detected (NotDetected) Coronavirus NL63 (PCR) Not Detected (NotDetected) Human Metapneumovir PCR Not Detected (NotDetected) Influenza Type A (PCR) Not Detected (NotDetected) Influenza Type B (PCR) Not Detected (NotDetected) M. pneumoniae (PCR) Not Detected (NotDetected) Parainfluenza 1 (PCR) Not Detected (NotDetected) Parainfluenza 2 (PCR) Not Detected (NotDetected) Parainfluenza 3 (PCR) Not Detected (NotDetected) Parainfluenza 4 (PCR) Not Detected (NotDetected) RSV (PCR) Not Detected (NotDetected) Entero/Rhino (PCR) Not Detected (NotDetected) 08/27/23 08/27/23 08/27/23 Range/Units 14:05 14:34 16:33 WBC (4.8-10.8) K/ul RBC (4.20-5.40) M/uL Hgb (12.0-16.0) g/dl Hct (37.0-47.0) % MCV (80.0-100.0) fL MCH (25.0-34.0) pg MCHC (32.0-36.0) g/dL RDW Std Deviation (36.4-46.3) fL RDW Coeff of Emil (11.5-14.5) % Plt Count (130-400) K/uL MPV (9.4-12.4) fL Immature Gran % (Auto) % Neut % (Auto) % Lymph % (Auto) % [place] % (Auto) % Eos % (Auto) % Baso % (Auto) % Neut # (Auto) (1.40-6.50) K/uL Lymph # (Auto) (1.20-3.40) K/uL [place] # (Auto) (0.11-0.59) K/uL Eos # (Auto) (0.00-0.50) K/uL Baso # (Auto) (0.00-0.20) K/uL Immature Gran # (Auto) (0.01-0.20) K/uL Sodium (136-145) mmol/L Potassium (3.5-5.1) mmol/L Chloride (98-107) mmol/L Carbon Dioxide (21-32) mmol/L Anion Gap (3-11) BUN (6-23) mg/dl Creatinine (0.6-1.2) mg/dl Est Cr Clr Drug Dosing Est GFR ( Amer) ml/min Est GFR (Non-Af Amer) ml/min BUN/Creatinine Ratio (10-20) Glucose (70-99(Fasting)) mg/dl Lactate 1.4 (0.4-2.0) mmol/L Calcium (8.6-10.3) mg/dl Total Bilirubin (0.2-1.0) mg/dl AST (13-39) U/L ALT (7-52) U/L Alkaline Phosphatase (34-104) U/L Troponin I High Sens 16.7 H 14.9 H (0-14) pg/ml B-Natriuretic Peptide 462 H (0-100) pg/ml Total Protein (6.0-8.3) gm/dl Albumin (3.4-5.0) gm/dl Globulin (2.5-4.0) gm/dl Albumin/Globulin Ratio (0.9-2) Urine Color Urine Appearance (Clear) Urine pH (4.5-7.5) Ur Specific [place] (1.000-1.030) Urine Protein (Negative) Urine Glucose (UA) (Negative) Urine Ketones (Negative) Urine Blood (Negative) Urine Nitrite (Negative) Urine Bilirubin (Negative) Urine Urobilinogen (Negative) Ur Leukocyte Esterase (Negative) Urine WBC (Auto) (0-5) /hpf Urine RBC (Auto) (0-2) /hpf U Hyaline Cast (Auto) (0-2) /lpf U Epithel Cells (Auto) (0-2) /hpf Urine Bacteria (Auto) (None Seen) Adenovirus (PCR) (NotDetected) B. pertussis DNA (PCR) (NotDetected) B.parapertussis DNA PCR (NotDetected) C. pneumoniae DNA (PCR) (NotDetected) Coronavirus OC43 (PCR) (NotDetected) Coronavirus HKU1 (PCR) (NotDetected) Coronavirus 229E (PCR) (NotDetected) SARS-CoV-2 (PCR) (NotDetected) Coronavirus NL63 (PCR) (NotDetected) Human Metapneumovir PCR (NotDetected) Influenza Type A (PCR) (NotDetected) Influenza Type B (PCR) (NotDetected) M. pneumoniae (PCR) (NotDetected) Parainfluenza 1 (PCR) (NotDetected) Parainfluenza 2 (PCR) (NotDetected) Parainfluenza 3 (PCR) (NotDetected) Parainfluenza 4 (PCR) (NotDetected) RSV (PCR) (NotDetected) Entero/Rhino (PCR) (NotDetected) Imaging Data Attestation: I personally reviewed and interpreted this imaging study as follows: My Impression: chest x-raycardiomegaly with mild increased interstitial markings with potentially a CHF component. No focal infiltrate or pneumothorax Radiologist's Impression: Abdomen/Pelvis CT 08/27/23 12:[address] WITHOUT CONTRAST CT DOSE: 1370.15 mGy.cm HISTORY: back pain TECHNIQUE: Multiaxial CT images of the abdomen and pelvis were performed without contrast. A dose lowering technique was utilized adhering to the principles of ALARA. COMPARISON STUDY: Abdomen and pelvis CT 12/07/2022. FINDINGS: Subcentimeter nodules at the lung bases remain stable. Dominant nodule within the base of the right middle lobe on image 15 measures 6 mm. No pneumoperitoneum. No pneumatosis. No acute fractures. Degenerative changes noted within the lower lumbar spine. The heart is mildly enlarged. There is a small hiatus hernia. There is a tiny fat-containing umbilical hernia. Prior cholecystectomy. The unenhanced liver, spleen, and pancreas are unremarkable. Stable 17 mm right adrenal gland nodule. This favors a benign adenoma. Normal left adrenal gland. Mild bilateral perinephric edema, unchanged. This is likely chronic. Cortical lobulation within the left kidney, unchanged. Stable 16 mm parapelvic cyst within the lower pole of the left kidney. No renal or ureteral calculi. No hydronephrosis. Normal caliber abdominal aorta. Subcentimeter retroperitoneal lymph nodes do not meet CT criteria for pathologic involvement. No pelvic lymphadenopathy or pelvic free fluid. Gas within the bladder lumen may be due to prior catheterization. The uterus and adnexa are unremarkable. Suboptimal evaluation for bowel pathology due to the lack of intravenous and oral contrast. However, there is no definite bowel wall thickening or obstruction. The visualized appendix is unremarkable. IMPRESSION: 1. No renal or ureteral stones. No hydronephrosis. 2. Mild bilateral perinephric edema, unchanged. This is likely chronic. 3. Gas within the bladder lumen. This could be due to recent catheterization. Clinical correlation recommended. 4. No definite bowel wall thickening or obstruction. 5. Stable subcentimeter nodules within the lung bases measuring up to 6 mm. These are likely benign given the long-term stability. 6. Additional findings as described above. ACT 112: Negative or not required by law. Electronically signed by: Malcom Su M.D. 08/27/2023 2:34 PM Chest X-Ray 08/27/23 13:00 XR chest 1V portable HISTORY: weakness, elevated wbc COMPARISON: Chest 03/18/2023. FINDINGS: No pneumothorax. No pleural effusions. The heart remains mildly enlarged. No new focal lung consolidations to suggest pneumonia. No evidence for pulmonary edema. No acute fractures. Mild chronic interstitial thickening persists. IMPRESSION: No significant change compared to the prior study. No acute process. ACT 112: Negative or not required by law. Electronically signed by: Malcom Su M.D. 08/27/2023 2:44 PM ECG Data Attestation: I personally reviewed and interpreted this ECG as follows: Indication: + weakness Rate (beats per minute): 70 Rhythm: + normal sinus and + other (Baseline) ECG Intervals/blocks: + Normal QRS, + Normal QT and + Normal MA ECG [place]: + Normal ECG ST segments: + Normal ST segments ECG Findings: no PACs or no PVCs Comparison ECG Date: from (03/15/2023) Change: no significant change MDM Narrative This patient comes in as scribed above. She was placed in room B10. He is here for treatment evaluation of feeling generally weak. She was placed on a media monitor. EKG chest x-ray multiple blood testing was obtained she had some chronic back pain and her white count was elevated 15 so I did I did get a urine as well as a CT of her abdomen/pelvis. EKG showed no acute ischemic change or ectopy. Troponin is mildly elevated however she tends to be chronically elevated I did a 2-hour delta troponin and it was less than the first and therefore I think this is unlikely acute coronary syndrome BNP was elevated however less than normal. She did tolerate the 500 cc normal saline bolus well but given her history of CHF and concern for fluid overload I did not give her additional fluids she remained normal/hypertensive. She does have an elevated white count. Her urinalysis does suggest a UTI. CAT scan of the abdomen does not show any obstructive uropathy or any other acute intra-abdominal process which would explain her symptoms. She feels better but still feels weak and does not feel she can go home I did discuss case with Dr. Pope, the hospitalist and they will admit/observe her for further inpatient treatment and evaluation. Continuous cardiac monitoring: Orders placed in the EMR for continuous media monitor call upon my evaluation patient was noted to be in normal sinus rhythm rate of 70 Impression & Plan Weakness, CKD (chronic kidney disease) stage 3, GFR 30-59 ml/min, Acute UTI (urinary tract infection), Elevated WBC count, History of congestive heart failure Discharge Plan Visit Data Chief Complaint: Dehydration Stated Complaint: POSSIBLE DEHYDRATION ED Provider: Rupert Chairez Discharge Problem: Weakness, CKD (chronic kidney disease) stage 3, GFR 30-59 ml/min, Acute UTI (urinary tract infection), Elevated WBC count, History of congestive heart failure Forms Stand Alone Forms: My [employer] Prescriptions Prescriptions: No Action (DME) Accu-Chek Guide test strips Strip See Rx Instructions .Route Qty: 100 5RF Rx Instructions: Test blood sugar TID (DME) FreeStyle Darek 14 Day Sensor Kit See Rx Instructions .Route Qty: 2 5RF Rx Instructions: E11.9 Please bill Medicare Part B / 1 SENSOR EVERY 14 DAYS rosuvastatin [Crestor] 20 mg tablet 20 mg PO QAM Qty: 90 3RF methimazole 10 mg tablet 5 mg PO QAM Qty: 90 1RF buspirone 15 mg tablet 15 mg PO BID Qty: 60 3RF lisinopril 40 mg tablet 40 mg PO DAILY Qty: 90 3RF venlafaxine [Effexor XR] 150 mg capsule,extended release 24hr 150 mg PO QAM Qty: 90 1RF magnesium oxide 400 mg (241.3 mg magnesium) tablet 400 mg PO DAILY Qty: 30 1RF labetalol 200 mg tablet 200 mg PO BID Qty: 60 3RF ergocalciferol (vitamin D2) 1,250 mcg (50,000 unit) capsule 50,000 unit PO WEEKLY Qty: 12 0RF pantoprazole 40 mg tablet,delayed release (DR/EC) 40 mg PO QAM Qty: 90 1RF furosemide 20 mg tablet 20 mg PO DAILY Qty: 90 0RF calcitriol 0.25 mcg capsule 0.25 mcg PO 3XWK Qty: 36 3RF Rx Instructions: Saturday, Saturday, Saturday in the morning (DME) lancets [Accu-Chek Softclix Lancets] Misc See Rx Instructions .Route Qty: 200 3RF Rx Instructions: As directed; BS TID (DME) blood-glucose meter [Accu-Chek Guide Glucose Meter] Misc See Rx Instructions .Route Qty: 1 0RF Rx Instructions: As directed; BS TID (DME) Incentive Spirometer Misc See Rx Instructions .Route Qty: 1 0RF Rx Instructions: As directed Jardiance 10 mg tablet 10 mg PO DAILY Qty: 90 3RF amlodipine 5 mg tablet 5 mg PO HS Qty: 90 3RF insulin glargine [Lantus U-100 Insulin] 100 unit/mL solution 46 unit subcut QAM Rx Instructions: Take 46 units (0.5ml) once daily in the morning acetaminophen 500 mg Tablet 1,000 mg PO Q6H PRN (Reason: Pain) aspirin 81 mg Tablet,Delayed Release (Dr/Ec) 81 mg PO QAM Qty: 0 0RF Rx Instructions: buy over the counter, for stroke prevention ascorbic acid (vitamin C) [C-1000] 1,000 mg tablet 1,000 mg PO QAM Referrals Referrals: Ramirez Villela CRNP [Primary Care Provider] - Discharge Problem: CKD (chronic kidney disease) stage 3, GFR 30-59 ml/min Qualifiers: Chronic kidney disease stage 3 subtype: unspecified whether 3a or 3b Qualified Code(s): N18.30 - Chronic kidney disease, stage 3 unspecified Elevated WBC count Qualifiers: Leukocytosis type: unspecified Qualified Code(s): D72.829 - Elevated white blood cell count, unspecified
[2023-08-27 13:06] LABS: Appearance Urine Turbid (Clear); Bacteria Urine Automated 4+ (None Seen); Bilirubin Urine Negative (Negative); Blood Urine 1+ (Negative); Color Urine Yellow; Epithelial Cell Urine Auto >20 /hpf (0-2); Glucose Urine UA 3+ (Negative); Ketones Urine Trace (Negative); Leukocyte Esterase Urine 1+ (Negative); Nitrite Urine Negative (Negative); Protein Urine 3+ (Negative); RBC Urine Automated 0-2 /hpf (0-2); Specific Gravity Urine 1.018 (1.000-1.030); Urobilinogen Urine Negative (Negative); WBC Urine Automated >50 /hpf (0-5); pH Urine 5.5 (4.5-7.5)
--- NOTE | 2023-08-27 14:37 | CT Scan Report ---
ABDOMEN AND PELVIS CT WITHOUT CONTRAST CT DOSE: 1370.15 mGy.cm HISTORY: back pain TECHNIQUE: Multiaxial CT images of the abdomen and pelvis were performed without contrast. A dose lo wering technique was utilized adhering to the principles of ALARA. COMPARISON STUDY: Abdomen and pelvis CT 12/07/2022. FINDINGS: Subcentimeter nodules at the lung bases remain stable. Dominant nodule within the base of t he right middle lobe on image 15 measures 6 mm. No pneumoperitoneum. No pneumatosis. No acute fractur es. Degenerative changes noted within the lower lumbar spine. The heart is mildly enlarged. There is a small hiatus hernia. There is a tiny fat-containing umbilical hernia. Prior cholecystectomy. The un enhanced liver, spleen, and pancreas are unremarkable. Stable 17 mm right adrenal gland nodule. This favors a benign adenoma. Normal left adrenal gland. Mild bilateral perinephric edema, unchanged. This is likely chronic. Cortical lobulation within the left kidney, unchanged. Stable [address] within the lower pole of the left kidney. No renal or ureteral calculi. No hydronephrosis. Normal caliber abdominal aorta. Subcentimeter retroperitoneal lymph nodes do not meet CT criteria for pathol ogic involvement. No pelvic lymphadenopathy or pelvic free fluid. Gas within the bladder lumen may be due to prior catheterization. The uterus and adnexa are unremarkable. Suboptimal evaluation for janae l pathology due to the lack of intravenous and oral contrast. However, there is no definite bowel wal l thickening or obstruction. The visualized appendix is unremarkable. IMPRESSION: 1. No renal or ureteral stones. No hydronephrosis. 2. Mild bilateral perinephric edema, unchanged. This is likely chronic. 3. Gas within the bladder lumen. This could be due to recent catheterization. Clinical correlation re commended. 4. No definite bowel wall thickening or obstruction. 5. Stable subcentimeter nodules within the lung bases measuring up to 6 mm. These are likely benign g iven the long-term stability. 6. Additional findings as described above. ACT 112: Negative or not required by law. Electronically signed by: Malcom Su M.D. 08/27/2023 2:34 PM
[2023-08-27] MEDS: cefTRIAXone SODIUM 2,000 MG/50 ML BAG IV STA (14:40)
[2023-08-27 14:41] LABS: Adenovirus PCR Not Detected (NotDetected); Bordetella parapertussis PCR Not Detected (NotDetected); Bordetella pertussis PCR Not Detected (NotDetected); Chlamydia pneumoniae PCR Not Detected (NotDetected); Coronavirus 229E PCR Not Detected (NotDetected); Coronavirus CoV-2 (COVID19)PCR Not Detected (NotDetected); Coronavirus HKU1 PCR Not Detected (NotDetected); Coronavirus NL63 PCR Not Detected (NotDetected); Coronavirus OC43PCR Not Detected (NotDetected); Human Metapneumovirus PCR Not Detected (NotDetected); Influenza A PCR Not Detected (NotDetected); Influenza B PCR Not Detected (NotDetected); Mycoplasma pneumoniae PCR Not Detected (NotDetected); Parainfluenza Virus 1 PCR Not Detected (NotDetected); Parainfluenza Virus 2 PCR Not Detected (NotDetected); Parainfluenza Virus 3 PCR Not Detected (NotDetected); Parainfluenza Virus 4 PCR Not Detected (NotDetected); Respiratory Syncytial VirusPCR Not Detected (NotDetected); Rhinovirus/Enterovirus PCR Not Detected (NotDetected)
--- NOTE | 2023-08-27 14:45 | XRay Report ---
XR chest 1V portable HISTORY: weakness, elevated wbc COMPARISON: Chest 03/18/2023. FINDINGS: No pneumothorax. No pleural effusions. The heart remains mildly enlarged. No new focal lung consolidations to suggest pneumonia. No evidence for pulmonary edema. No acute fractures. Mild chron ic interstitial thickening persists. IMPRESSION: No significant change compared to the prior study. No acute process. ACT 112: Negative or not required by law. Electronically signed by: Malcom Su M.D. 08/27/2023 2:44 PM
--- NOTE | 2023-08-27 18:57 | History & Physical Report ---
Date of Service August 27, 2023 Assessment & Plan (1) Recurrent UTI: Plan: UTI Continue Rocephin UA infected appearing Follow UCx for sensitivities - pt/ot for weakness (2) Elevated troponin: Plan: Elevated troponin Without acute ischemic changes on EKG, mild troponin suspect due to prerenal depletion and UTI No chest pain on assessment downtrending 16.7/14.9 on repeat. (3) CKD (chronic kidney disease) stage 3, GFR 30-59 ml/min: Plan: Baseline creatinine 22 0.2 Creatinine elevated from baseline at 2.35,Contracted on admission Received Rocephin and 500 cc Plasma-Lyte supplement. No overt volume overload Encourage DM 2 diet Trend daily IVORY temporarily held (4) Anemia: Plan: Chronic anemia Hemoglobin uptrending from prior (5) Major depressive disorder, recurrent, in partial remission: Plan: Major depressive disorder Saw psychiatry at 03/2023 admission. Patient had expressed a desire to not change her medications if possible at that time. No acute decompensation, suspect her lack of energy and appetite are due to concurrent UTI although MDD may be contributing Continue venlafaxine Continue buspirone (6) Hypertension: Plan: Hypertension Continue amlodipine ivory temporarily held for mild increase in creatinine, resume 08/27 if creatinine returns to baseline Continue labetalol 200 mg p.o. twice daily Hydralazine on-call if needed - hypertensive on admit, but missed all daily meds. Ordered, BP improving. (7) Diabetes mellitus type 2, uncontrolled: Plan: Type II DM Basal bolus insulin - goal 110-140 Plan CODE: DNR/DNI Diet; dm2 History of Present Illness Primary Care Provider: LISA Calle Elida is a 72-year-old female with past medical history of type II DM, CKD, hypertension, history of demand ischemia, orthostasis, wheezing without diagnosis of asthma/COPD, MDD who presents to the ER with weakness, fatigue, and no desire for activity or appetite. She has a leukocytosis of 15, creatinine baseline of approximately 2-2.2, with admitting creatinine of 2.35, mildly elevated troponin at 14.9 without chest pain, BNP of 462 with primary treatments ranging from [id number], and an infected appearing UA. Bio fire is negative. CTA/P is with bilateral perinephric edema unchanged from prior and likely chronic, bladder lumen gas suspected due to catheterization, and no evidence of hydronephrosis or stones. Chest x-ray is without acute findings and specifically no evidence of pneumonia/pulmonary edema. He is recommended for inpatient treatment of UTI with concurrent KEEGNA. Midline Lumbar TTP, no change +feeling feverish, chilly x 3-4 days. No urinary change. Chronic dry cough, no change. No sputum production. No numbness or tingling Has some chronic lumbar back pain which has not changed Mostly just feels washed out and fatigued. No appetite. Feels her mood is actually doing okay, but feels like she has with prior infections No chest pain, chest pressure at time of assessment Medical History: Reviewed Medications: Reviewed Surgical History: Reviewed Family history: Reviewed Allergies: Reviewed Social History: Review Code Status: DNR/DNI Allergies Allergy/AdvReac Type Severity Reaction Status Date / Time No Known Allergies Allergy Verified 08/27/23 16:15 Home Medications Medication Instructions Recorded Confirmed Type acetaminophen 500 mg tablet 1,000 mg PO Q6H PRN Pain 06/19/21 08/27/23 History lancets (Accu-Chek Softclix #200 ea 04/27/22 07/25/23 Rx Lancets) blood sugar diagnostic (Accu-Chek #100 ea 01/30/23 07/25/23 Rx Guide test strips) blood-glucose meter (Accu-Chek #1 ea 02/13/23 07/25/23 Rx Guide Glucose Meter) aspirin 81 mg tablet,delayed 81 mg PO QAM #0 tabs 03/20/23 08/27/23 Rx release flash glucose sensor (FreeStyle #2 ea 04/19/23 07/25/23 Rx Darek 14 Day Sensor kit) rosuvastatin 20 mg tablet (Crestor) 20 mg PO QAM #90 tabs 04/24/23 08/27/23 Rx methimazole 10 mg tablet 5 mg (1/2 x 10 mg) PO QAM #90 tabs 05/13/23 08/27/23 Rx Incentive Spirometer #1 ea 05/14/23 07/25/23 Rx buspirone 15 mg tablet 15 mg PO BID #60 tabs 05/15/23 08/27/23 Rx lisinopril 40 mg tablet 40 mg PO DAILY #90 tabs 05/23/23 08/27/23 Rx venlafaxine 150 mg 150 mg PO QAM #90 caps 05/27/23 08/27/23 Rx capsule,extended release 24 hr (Effexor XR) amlodipine 5 mg tablet 5 mg PO HS #90 tabs 06/12/23 08/27/23 Rx labetalol 200 mg tablet 200 mg PO BID #60 tabs 06/12/23 08/27/23 Rx magnesium oxide 400 mg (241.3 mg 400 mg PO DAILY #30 tabs 06/12/23 08/27/23 Rx magnesium) tablet insulin glargine 100 unit/mL 46 unit subcut QAM 06/18/23 08/27/23 History subcutaneous solution (Lantus U-100 Insulin) ergocalciferol (vitamin D2) 1,250 50,000 unit PO WEEKLY #12 caps 06/19/23 08/27/23 Rx mcg (50,000 unit) capsule pantoprazole 40 mg tablet,delayed 40 mg PO QAM #90 tabs 06/25/23 08/27/23 Rx release empagliflozin 10 mg tablet 10 mg PO DAILY #90 tabs 07/25/23 08/27/23 Rx (Jardiance) furosemide 20 mg tablet 20 mg PO DAILY #90 tabs 08/06/23 08/27/23 Rx calcitriol 0.25 mcg capsule 0.25 mcg PO 3XWK #36 caps 08/19/23 08/27/23 Rx ascorbic acid (vitamin C) 1,000 mg 1,000 mg PO QAM 08/27/23 08/27/23 History tablet (C-1000) Past Med/Surg History Problem List Word finding difficulty Major depressive disorder, recurrent, in partial remission Headaches due 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 Anemia Morbid obesity with BMI of 40.0-44.9, adult Chronic kidney disease, stage IV (severe) Post concussive syndrome Weakness (Acute) TIA (transient ischemic attack) (Acute) Anxiety CKD (chronic kidney disease) stage 3, GFR 30-59 ml/min Diastolic CHF MCI (mild cognitive impairment) Early satiety Iron deficiency anemia Secondary hyperparathyroidism Acute kidney injury superimposed on CKD (Acute) Fatigue Recurrent UTI Ketonuria (Acute) Diabetic nephropathy associated with type 2 diabetes mellitus Left cataract Vitamin D deficiency Nephrotic syndrome GERD without esophagitis Arthritis Hypertension Diabetes mellitus type 2, uncontrolled IDDM Dyslipidemia HNP (herniated nucleus pulposus), lumbar Hyperthyroidism Medical History Vasovagal episode Melanoma of nose Major depressive disorder, recurrent severe without psychotic features Surgical History Status post trigger finger release History of repair of left rotator cuff History of repair of right rotator cuff History of colonoscopy History of melanoma excision History of tooth extraction all teeth removed History of bilateral cataract extraction S/P tonsillectomy S/P tubal ligation S/P cholecystectomy Family History Father Prostate cancer Diabetes Myocardial infarction Lung cancer Mother Diabetes Alzheimer disease Myocardial infarction Hypertension Brother COPD (chronic obstructive pulmonary disease) Other No family history of adverse response to anesthesia Denies family history of Ovarian cancer Breast cancer Colorectal cancer Social History Smoking Status: Never smoker Second Hand Exposure: No; Do You Dip or Chew Tobacco: No; Hx Alcohol Use: No Hx Substance Use: No Preferred Language: Guamanian Communication Ability: Effective Communication Ability Comment: Reports difficulty reading now r/t dizziness Visual Impairment: No Limitations Hearing Ability: Normal Furniture Associate Required: No Beliefs That Will Affect Care: None marital status: Current Living Situation: Family Current Living Situation Comment: Lives with daughterLorrie current occupational status: retired current occupation: retired - worked at [employer] Feels Safe at Home: Yes Childhood Exposure to Second-Hand Smoke: No Diet: regular caffeine: Yes (Soda x 10 cans per day.) during the past year weight has: remained stable Dental Care, Regularly: No Physical Activity Frequency: Daily Physical Activity Frequency Comment: house chores Seatbelt Use: always Sunscreen Use: No Assistive Devices: Cane, Walker and Wheelchair Physical Exam Physical Exam: General: A&Ox3. NAD. Cooperative. HEENT: Atraumatic, normocephalic. Vision and hearing grossly intact Pulm: CTAB A&P. -wheezes, -rales, -rhonchi. Symmetrical chest rise. No increased work of breathing. No respiratory distress. Cardiac: RRR, -mrg. Radial pulses intact and symmetrical. Abdominal: Nontender, nondistended, soft. BS present. back/ext: midline L3-4 lumbar TTP, no erythema or fluctuance. No change from baseline per pt. 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 Results & Data Results & Data Vital Signs (Past 12 Hours) Vital Signs Temp Pulse Pulse Resp BP BP Pulse Ox 08/27/23 17:00 37.2 C 74 18 194/81 H 97 08/27/23 15:00 67 20 172/77 H 98 08/27/23 13:54 64 20 156/62 H 96 08/27/23 12:47 62 19 144/85 H 96 08/27/23 11:13 36.7 C 68 18 154/73 H 97 O2 Del Method 08/27/23 17:00 Room Air 08/27/23 15:00 Room Air 08/27/23 13:54 Room Air 08/27/23 12:47 Room Air 08/27/23 11:13 Room Air PG Care Time/CCT Total # of Minutes Spent Total Time Spent with Patient: Total time spent is greater than 50% in coordination of care (as documented) at patient's floor/unit and/or counseling patient: Coding Level of Care Code 77289 INT INP/OBS CARE 3/75MIN Diagnoses Recurrent UTI N39.0 Elevated troponin R79.89 CKD (chronic kidney disease) stage 3, GFR 30-59 ml/min N18.3 Anemia D64.9 Major depressive disorder, recurrent, in partial remission F33.41 Hypertension I10 Hypertension type: unspecified Uncontrolled type 2 diabetes mellitus with hyperglycemia E11.65 Glycemic state: with hyperglycemia (6) Hypertension Hypertension type: unspecified Qualified Code(s): I10 - Essential (primary) hypertension (7) Diabetes mellitus type 2, uncontrolled Glycemic state: with hyperglycemia Qualified Code(s): E11.65 - Type 2 diabetes mellitus with hyperglycemia
[2023-08-27] MEDS: LABETALOL HCL IV 5 MG/ML 20ML IV STA (19:10)
[2023-08-27] MEDS: amLODIPine BESYLATE 5 MG TAB PO STA (19:23)
[2023-08-27] MEDS: LABETALOL HCL 100 MG TAB PO STA (19:23)
[2023-08-27] MEDS ORDERED: PHARMACY GLYCEMIC MGMT CONSULT PRN (20:48)
[2023-08-27] MEDS ORDERED: GLUCOSE 10 TAB/TUBE PO PRN (20:48)
[2023-08-27] MEDS ORDERED: GLUCOSE 40% GEL 15 GM TUBE PO PRN (20:48)
[2023-08-27] MEDS ORDERED: CARBOHYDRATES FOR HYPOGLYCEMIA PO PRN (20:48)
[2023-08-27] MEDS ORDERED: GLUCAGON FOR INJ 1 MG VIAL SQ PRN (20:48)
[2023-08-27] MEDS ORDERED: DEXTROSE 50% 50 ML SYRINGE IV PRN (20:48)
[2023-08-27] MEDS: INSULIN ASPART PER UNIT CHARGE SC SCH (21:46)
[2023-08-27] MEDS: LABETALOL HCL 200 MG TAB PO SCH (21:46)
[2023-08-27] MEDS: amLODIPine BESYLATE 5 MG TAB PO SCH (21:47)
[2023-08-27] MEDS: HEPARIN SOD 5,000 UNIT/0.5 ML VIAL SQ SCH (21:47)
[2023-08-27] MEDS: busPIRone 15 MG TAB PO SCH (21:47)
[2023-08-27] MEDS: PLASMA-LYTE A 500 ML IV ONE (22:08)
[2023-08-28] MEDS: INSULIN ASPART PER UNIT CHARGE SC SCH (02:09)
[2023-08-28 07:54] LABS: Basophils # (auto) 0.06 K/uL (0.00-0.20); Basophils % (auto) 0.5 %; Eosinophils # (auto) 0.07 K/uL (0.00-0.50); Eosinophils % (auto) 0.6 %; Hematocrit (blood only) 31.3 % (37.0-47.0); Hemoglobin 10.4 g/dl (12.0-16.0); Immature Granulocytes # (auto) 0.05 K/uL (0.01-0.20); Immature Granulocytes % (auto) 0.4 %; Lymphocytes # (auto) 1.05 K/uL (1.20-3.40); Lymphocytes % (auto) 8.3 %; Mean Corpuscular Hemoglobin 31.5 pg (25.0-34.0); Mean Corpuscular Hgb Conc 33.2 g/dL (32.0-36.0); Mean Corpuscular Volume 94.8 fL (80.0-100.0); Mean Platelet Volume 10.4 fL (9.4-12.4); Monocytes % (auto) 13.5 %; Neutrophils # (auto) 9.69 K/uL (1.40-6.50); Neutrophils % (auto) 76.7 %; Platelet Count 286 K/uL (130-400); RDW Coefficient of Variation 13.4 % (11.5-14.5); RDW Standard Deviation 45.2 fL (36.4-46.3); White Blood Count 12.62 K/ul (4.8-10.8)
[2023-08-28 08:28] LABS: BUN Creatinine Ratio 21.1 (10-20); Calcium 8.9 mg/dl (8.6-10.3); Creatinine Clr Calc Pharmacy 21.4 ml/min; Est GFR (African American) 23.4 ml/min; Est GFR (Non-African American) 20.2 ml/min; Potassium 4.6 mmol/L (3.5-5.1)
[2023-08-28] MEDS ORDERED: LANTUS PER UNIT CHARGE SQ SCH (09:00)
[2023-08-28] MEDS: LANTUS PER UNIT CHARGE SQ SCH ×2 (09:31→21:00)
[2023-08-28] MEDS: methIMAzole 5 MG TABLET PO SCH (09:31)
[2023-08-28] MEDS: ASPIRIN 81 MG ECTAB PO SCH (09:31)
[2023-08-28] MEDS: PANTOprazole 40 MG TAB PO SCH (09:31)
[2023-08-28] MEDS: VENLAFAXINE HCL XR 150 MG CAPXR PO SCH (09:32)
[2023-08-28] MEDS: CALCITRIOL 0.25 MCG CAPSULE PO SCH (09:32)
[2023-08-28] MEDS: ROSUVASTATIN CALCIUM 20 MG TAB PO SCH (09:32)
[2023-08-28] MEDS: MAGNESIUM OXIDE 400 MG TAB PO SCH (09:32)
[2023-08-28] MEDS: PLASMA-LYTE A 250 ML IV ONE (11:38)
--- NOTE | 2023-08-28 12:58 | Pharmacy Report ---
Pharmacy Glycemic Short Note 2 - Date of Service August 28, 2023 - Glycemic Short BSG Results (Last 24 hours): 08/27/23 08/28/23 08/28/23 20:58 02:03 07:26 Glucose 160 H POC Glucose 239 H 180 H 08/28/23 08/28/23 07:58 12:07 Glucose POC Glucose 175 H 284 H OUTPATIENT ANTIDIABETIC REGIMEN: * Lantus 46 units SQ QAM * Jardiance 10mg PO Daily * A1c 10.5% 03/16/23, new A1c ordered ASSESSMENT: * 72 yo F, PMH of type II DM, CKD, HTN, wheezing without diagnosis of asthma/COPD, MDD, admitted with recurrent UTI, on IV Ceftriaxone. * Patient required only half of her home basal dose last admission, began with just 25 units this morning, but BSG samantha 100 points from breakfast to dinner. Will give additional basal and tighten NovoLog parameters at this time. Further basal dosing in AM. PLAN FOR INPATIENT GLYCEMIC CONTROL: * Hold outpatient oral diabetes medications * Basal insulin * Lantus 25 units SQ this AM, 10 units with lunch, then 10 units HS for BSG > 200, further dosing in AM * Bolus insulin * NovoLog per scale ACHS or Q6hrs while NPO * Goal Range: Low 110 mg/dL - High 140 mg/dL * Correction Factor: 20 mg/dL/unit * Nutritional / Prandial insulin per carb ratio of 1 unit per 6 grams CHO consumed
[2023-08-28] MEDS: LANTUS PER UNIT CHARGE SQ ONE (13:13)
--- NOTE | 2023-08-28 16:25 | Electrocardiogram Report ---
Test Reason : Blood Pressure : / mmHG Vent. Rate : 069 BPM Atrial Rate : 069 BPM P-R Int : 146 ms QRS Dur : 078 ms QT Int : 376 ms P-R-T Axes : 031 014 050 degrees QTc Int : 402 ms Normal sinus rhythm Normal ECG When compared with ECG of 15-MAR-2023 17:32, Nonspecific T wave abnormality no longer evident in Lateral leads Confirmed by Celio Hernandez ([id number]) on 08/28/2023 4:25:10 PM Referred By: REFERRED SELF Confirmed By:Celio Hernandez
--- NOTE | 2023-08-28 19:42 | Hospitalist Progress Note ---
Date of Service August 28, 2023 Assessment & Plan (1) Recurrent UTI: Plan: With likely pyelonephritis given fevers, left CVA tenderness, and bilat perinephric stranding on CT A/P. Also with some foci of gas in bladder and no recent catheterization in over a year. BCxs remain negative, WBC count improving, no further fevers, back pain better, fatigue resolved Ur cx with GNR, ID pending Continue Rocephin for now, plan to convert to po abx on discharge for total of 10 days Follow UCx and BCxs (2) Elevated troponin: Plan: Myocardial demand ischemia from UTI/pyelonephritis Without acute ischemic changes on EKG, No chest pain on assessment Trop 16.7/14.9 on repeat-no need for further workup No arrhythmias on tele (3) CKD (chronic kidney disease) stage 3, GFR 30-59 ml/min: Plan: Baseline creatinine 2.02.2 Creatinine elevated from baseline at 2.35,Contracted on admission, similar today With some mild orthostasis/presyncope--> gave small bolus 250mL and will finish out 1L of isotonic IVFs Lisinopril and lasix from home temporarily held Follow BMP (4) Major depressive disorder, recurrent, in partial remission: Plan: Stable Continue venlafaxine and buspirone Add melatonin for sleep (5) Hypertension: Plan: BPs normal but orthostatic earlier, improved with IVFs Continue amlodipine, labetalol holding lisinopril and lasix for mild renal insufficiency (6) Diabetes mellitus type 2, uncontrolled: Plan: Uncontrolled on last check w/ HgbA1C 10.3% Check A1C in AM Continue Basal bolus insulin On jardiance at home (7) Anemia: Plan: Chronic anemia Hemoglobin up from prior and stable today at 10 Likely anemia of chronic disease and Fe def--> received Procrit from Nephro Plan Hyperlipidemia-continue statin GERD-continue PPI Hyperthyroidism-continue methimazole-last TSH normal in 03/2023 H/O TIA-continue ASA, statin, BP control DVT proph-heparin SQ Dispo-continued stay but likely dc to home tomorrow CODE: DNR/DNI Admission and Anticipated Discharge Date Admission Date: August 27, 2023 Subjective Pt had some lightheadedness with standing earlier that is now resolved. Her BP did drop with standing. She was given a small fluid bolus and now feeling better. She overall feels better and in the evening was requesting to go home. Denies N/V, no abd pain. Back pain on left is better. She is moving her bowels, making urine. Low grade fever is resolved. C/o not being able to sleep in the hospital at all Tele with NSR, PVCs, rates 60-70s Physical Exam Constitutional: WD/WN, vitals as above Respiratory: normal respiratory effort, lungs clear to auscultation Cardiovascular: RRR, no murmur, no edema Gastrointestinal (Abdomen): normal bowel sounds, soft, nontender, no hepatosplenomegaly Psychiatric: A+Ox3, euthymic affect Results & Data Results & Data Vital Signs (Past 12 Hours) Vital Signs Temp Pulse Pulse Resp BP Pulse Ox Pulse Ox 08/28/23 19:37 37.0 C 70 20 150/73 H 96 08/28/23 15:59 37.1 C 62 18 130/75 95 08/28/23 15:59 65 08/28/23 13:34 95 08/28/23 11:28 37.2 C 65 18 122/76 94 08/28/23 11:12 71 08/28/23 11:03 O2 Del Method O2 Flow Rate 08/28/23 19:37 Room Air 08/28/23 15:59 Room Air 08/28/23 15:59 08/28/23 13:34 0 08/28/23 11:28 Room Air 08/28/23 11:12 08/28/23 11:03 Room Air Laboratory Results CBC, BMP, urine cx reviewed PG Care Time/CCT Total # of Minutes Spent Total Time Spent with Patient: Total time spent is greater than 50% in coordination of care (as documented) at patient's floor/unit and/or counseling patient: Coding Level of Care Code 31641 SUB INP/OBS CARE 2/35MIN Diagnoses Recurrent UTI N39.0 Elevated troponin R79.89 CKD (chronic kidney disease) stage 3, GFR 30-59 ml/min N18.3 Major depressive disorder, recurrent, in partial remission F33.41 Hypertension I10 Hypertension type: unspecified Uncontrolled type 2 diabetes mellitus with hyperglycemia E11.65 Glycemic state: with hyperglycemia Anemia D64.9 (5) Hypertension Hypertension type: unspecified Qualified Code(s): I10 - Essential (primary) hypertension (6) Diabetes mellitus type 2, uncontrolled Glycemic state: with hyperglycemia Qualified Code(s): E11.65 - Type 2 diabetes mellitus with hyperglycemia
[2023-08-28] MEDS: MELATONIN 3 MG TAB PO SCH (21:02)
[2023-08-28] MEDS: PLASMA LYTE A IV SCH (21:03)
[2023-08-28] MEDS: cefTRIAXone SODIUM 2,000 MG/50 ML BAG IV SCH (21:04)
[2023-08-29 07:35] LABS: Basophils # (auto) 0.06 K/uL (0.00-0.20); Basophils % (auto) 0.6 %; Eosinophils # (auto) 0.29 K/uL (0.00-0.50); Eosinophils % (auto) 3.1 %; Hematocrit (blood only) 30.6 % (37.0-47.0); Immature Granulocytes # (auto) 0.03 K/uL (0.01-0.20); Immature Granulocytes % (auto) 0.3 %; Lymphocytes # (auto) 1.56 K/uL (1.20-3.40); Lymphocytes % (auto) 16.5 %; Mean Corpuscular Hemoglobin 31.1 pg (25.0-34.0); Mean Corpuscular Hgb Conc 32.7 g/dL (32.0-36.0); Mean Platelet Volume 10.4 fL (9.4-12.4); Monocytes # (auto) 1.75 K/uL (0.11-0.59); Monocytes % (auto) 18.5 %; Neutrophils # (auto) 5.79 K/uL (1.40-6.50); Platelet Count 295 K/uL (130-400); RDW Coefficient of Variation 13.4 % (11.5-14.5); RDW Standard Deviation 45.6 fL (36.4-46.3); Red Blood Count 3.22 M/uL (4.20-5.40); White Blood Count 9.48 K/ul (4.8-10.8)
[2023-08-29 08:08] LABS: BUN Creatinine Ratio 20.6 (10-20); Creatinine Clr Calc Pharmacy 17.6 ml/min; Est GFR (African American) 18.6 ml/min; Potassium 4.4 mmol/L (3.5-5.1)
[2023-08-29 08:16] LABS: Estimated Average Glucose 186 mg/dl; Hemoglobin A1C 8.1 % (4.5-5.6)
[2023-08-29] MEDS: LANTUS PER UNIT CHARGE SC SCH (09:06)
--- NOTE | 2023-08-29 10:28 | Pharmacy Report ---
Pharmacy Glycemic Short Note 2 - Date of Service August 29, 2023 - Glycemic Short BSG Results (Last 24 hours): 08/28/23 08/28/23 08/28/23 12:07 17:05 20:19 Glucose POC Glucose 284 H 123 H 201 H 08/29/23 08/29/23 07:10 08:15 Glucose 136 H POC Glucose 139 H OUTPATIENT ANTIDIABETIC REGIMEN: * Lantus 46 units SQ QAM * Jardiance 10mg PO Daily * A1c 8.1% 08/29/23 ASSESSMENT: 08/28 * Patient received 72 units insulin yesterday, 45 units basal - will change back to home dose of basal insulin. * Continue NovoLog parameters. * IV ceftriaxone changed to PO Augmentin 08/27 * 72 yo F, PMH of type II DM, CKD, HTN, wheezing without diagnosis of asthma/COPD, MDD, admitted with recurrent UTI, on IV Ceftriaxone. * Patient required only half of her home basal dose last admission, began with just 25 units this morning, but BSG samantha 100 points from breakfast to dinner. Will give additional basal and tighten NovoLog parameters at this time. Further basal dosing in AM. PLAN FOR INPATIENT GLYCEMIC CONTROL: * Hold outpatient oral diabetes medications * Basal insulin * Lantus 46 units SQ Daily * Bolus insulin * NovoLog per scale ACHS or Q6hrs while NPO * Goal Range: Low 110 mg/dL - High 140 mg/dL * Correction Factor: 20 mg/dL/unit * Nutritional / Prandial insulin per carb ratio of 1 unit per 6 grams CHO consumed
[2023-08-29] MEDS: PLASMA-LYTE A 1,000 ML IV SCH (10:31)
[2023-08-29] MEDS: ACETAMINOPHEN 325 MG TAB PO PRN (13:12)
[2023-08-29 16:06] LABS: BUN Creatinine Ratio 21.4 (10-20); Calcium 8.9 mg/dl (8.6-10.3); Creatinine Clr Calc Pharmacy 17.7 ml/min; Est GFR (African American) 18.6 ml/min; Est GFR (Non-African American) 16.1 ml/min; Potassium 4.7 mmol/L (3.5-5.1)
--- NOTE | 2023-08-29 17:46 | Discharge Summary ---
Discharge Summary Date of Service August 29, 2023 Notes For Next Care Provider Medication Changes From Visit Added Augmentin 500/125mg po bid x 8 more days Admission HPI Per Admitting Provider Elida is a 72-year-old female with past medical history of type II DM, CKD, hypertension, history of demand ischemia, orthostasis, wheezing without diagnosis of asthma/COPD, MDD who presents to the ER with weakness, fatigue, and no desire for activity or appetite. She has a leukocytosis of 15, creatinine baseline of approximately 2-2.2, with admitting creatinine of 2.35, mildly eleva nicolasa troponin at 14.9 without chest pain, BNP of 462 with primary treatments ranging from [id number], and an infected appearing UA. Bio fire is negative. CTA/P is with bilateral perinephric edema unchanged from prior and likely chronic, bladder lumen gas suspected due to catheterization, and no evidence of hydronephrosis or stones. Chest x-ray is without acute findings and specifically no evidence of pneumonia/pulmonary edema. He is recommended for inpatient treatment of UTI with concurrent KEEGAN. Midline Lumbar TTP, no change +feeling feverish, chilly x 3-4 days. No urinary change. Chronic dry cough, no change. No sputum production. No numbness or tingling Has some chronic lumbar back pain which has not changed Mostly just feels washed out and fatigued. No appetite. Feels her mood is actually doing okay, but feels like she has with prior infections No chest pain, chest pressure at time of assessment Medical History: Reviewed Medications: Reviewed Surgical History: Reviewed Family history: Reviewed Allergies: Reviewed Social History: Review Code Status: DNR/DNI Principal Dx & Hospital Course #1 = Principal Diagnosis (1) Recurrent UTI: With likely pyelonephritis given fevers, left CVA tenderness, and bilat perinephric stranding on CT A/P. Also with some foci of gas in bladder and no recent catheterization in over a year. BCxs remain negative, WBC count improving, no further fevers, back pain better, fatigue resolved Ur cx with pansens E. coli Received Rocephin x 2 doses, plan to convert to po Augmentin on discharge for total of 10 days (2) Elevated troponin: Myocardial demand ischemia from UTI/pyelonephritis Without acute ischemic changes on EKG, No chest pain on assessment Trop 16.7/14.9 on repeat-no need for further workup No arrhythmias on tele (3) CKD (chronic kidney disease) stage 3, GFR 30-59 ml/min: With KEEGAN on CKD stage 3-4 Baseline creatinine 2.02.2 Creatinine elevated from baseline at 2.8,Contracted on admission With some mild orthostasis/presyncope--> gave small bolus 250mL and 2L of isotonic IVFs over the last 24 hr Orthostasis still positive but drops from 163 systolic to 119 and not dizzy 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 but pt feels well Plan to hold lasix, lisinopril and repeat BMP on Saturday next week, 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 or take lasix sooner prn leg swelling (4) Major depressive disorder, recurrent, in partial remission: Stable Continue venlafaxine and buspirone (5) Hypertension: BPs normal to elevated still but orthostatic, however BP does not drop as low with holsing lasix and giving fluids--> asymptomatic Continue amlodipine, labetalol holding lisinopril and lasix for mild renal insufficiency (6) Diabetes mellitus type 2, uncontrolled: Uncontrolled on last check w/ HgbA1C 10.3% Check A1C in AM Continue Basal bolus insulin On jardiance at home (7) Anemia: Chronic anemia Hemoglobin up from prior and stable today at 10 Likely anemia of chronic disease and Fe def--> received Procrit from [facility] (8) Right knee pain: developed overnight before discharge, with effusion on exam but no erythema, with painful +TTP medial joint line, limited ROM, suspect meniscal issue, arthritis advised voltaren gel, ice, tylenol which is helping xrays with effusion and OA but no fracture f/u outpt she is able to ambulate Plan Hyperlipidemia-continue statin GERD-continue PPI Hyperthyroidism-continue methimazole-last TSH normal in 03/2023 H/O TIA-continue ASA, statin, BP control DVT proph-heparin SQ Dispo- dc to home today CODE: DNR/DNI Discharge Exam Constitutional WD/WN, vitals as above Respiratory normal respiratory effort, lungs clear to auscultation Cardiovascular RRR, no murmur, no edema Gastrointestinal (Abdomen) normal bowel sounds, soft, nontender, no hepatosplenomegaly Musculoskeletal right knee +effusion, no erythema, limited ROM 0-90, +medial JLT Psychiatric A+Ox3, euthymic affect Updated Medication List Medication Instructions Recorded Confirmed Type acetaminophen 500 mg tablet 1,000 mg PO Q6H PRN Pain 06/19/21 08/27/23 History lancets (Accu-Chek Softclix #200 ea 04/27/22 07/25/23 Rx Lancets) blood sugar diagnostic (Accu-Chek #100 ea 01/30/23 07/25/23 Rx Guide test strips) blood-glucose meter (Accu-Chek #1 ea 02/13/23 07/25/23 Rx Guide Glucose Meter) aspirin 81 mg tablet,delayed 81 mg PO QAM #0 tabs 03/20/23 08/27/23 Rx release flash glucose sensor (FreeStyle #2 ea 04/19/23 07/25/23 Rx Darek 14 Day Sensor kit) rosuvastatin 20 mg tablet (Crestor) 20 mg PO QAM #90 tabs 04/24/23 08/27/23 Rx methimazole 10 mg tablet 5 mg (1/2 x 10 mg) PO QAM #90 tabs 05/13/23 08/27/23 Rx Incentive Spirometer #1 ea 05/14/23 07/25/23 Rx buspirone 15 mg tablet 15 mg PO BID #60 tabs 05/15/23 08/27/23 Rx lisinopril 40 mg tablet 40 mg PO DAILY #90 tabs 05/23/23 08/27/23 Rx venlafaxine 150 mg 150 mg PO QAM #90 caps 05/27/23 08/27/23 Rx capsule,extended release 24 hr (Effexor XR) amlodipine 5 mg tablet 5 mg PO HS #90 tabs 06/12/23 08/27/23 Rx labetalol 200 mg tablet 200 mg PO BID #60 tabs 06/12/23 08/27/23 Rx magnesium oxide 400 mg (241.3 mg 400 mg PO DAILY #30 tabs 06/12/23 08/27/23 Rx magnesium) tablet insulin glargine 100 unit/mL 46 unit subcut QAM 06/18/23 08/27/23 History subcutaneous solution (Lantus U-100 Insulin) ergocalciferol (vitamin D2) 1,250 50,000 unit PO WEEKLY #12 caps 06/19/23 08/27/23 Rx mcg (50,000 unit) capsule pantoprazole 40 mg tablet,delayed 40 mg PO QAM #90 tabs 06/25/23 08/27/23 Rx release empagliflozin 10 mg tablet 10 mg PO DAILY #90 tabs 07/25/23 08/27/23 Rx (Jardiance) furosemide 20 mg tablet 20 mg PO DAILY #90 tabs 08/06/23 08/27/23 Rx calcitriol 0.25 mcg capsule 0.25 mcg PO 3XWK #36 caps 08/19/23 08/27/23 Rx ascorbic acid (vitamin C) 1,000 mg 1,000 mg PO QAM 08/27/23 08/27/23 History tablet (C-1000) amoxicillin 500 mg-potassium 1 tab PO BID #16 tabs 08/29/23 Rx clavulanate 125 mg tablet diclofenac sodium 1 % topical gel 2 g EXT QID PRN right knee pain 08/29/23 Rx (Voltaren Arthritis Pain) #100 grams Hospital Stay Data Consultations 08/27/23 18:55 ED Decision to Admit Stat Diagnostic Imagining Performed 08/27/23 12:54 CT stones [CT abd pelvis wo con] Stat Pending Results Patient Have Any Pending Studies at Discharge: No Discharge Instructions Given to Patient (Per Discharging Provider) You were admitted with a UTI and kidney infection. Please finish out 8 more days of the antibiotic called Augmentin, twice a day. For your right knee pain, you can use Voltaren gel four times a day as needed, ice it, and take Tylenol as needed. Your kidney function was decreased from your baseline likely from dehydration from being sick. You were given IV fluids and should remain off of your lisinopril and lasix until after you have repeat blood work on Saturday. If your kidney function has returned to normal, you can resume your lisinopril and lasix. If you develop a lot of leg swelling or feel short of breath, you can take a lasix pill. Total Time Total Time Spent Total Time Spent (In Minutes): 35 min Coding Level of Care Code 91127 INP/OBS DISCH >30 MIN Diagnoses Recurrent UTI N39.0 Elevated troponin R79.89 CKD (chronic kidney disease) stage 3, GFR 30-59 ml/min N18.3 Major depressive disorder, recurrent, in partial remission F33.41 Hypertension I10 Hypertension type: unspecified Uncontrolled type 2 diabetes mellitus with hyperglycemia E11.65 Glycemic state: with hyperglycemia Anemia D64.9 Right knee pain M25.561
[2023-08-29] MEDS: AMOXICILLIN/CLAVULANATE 875 MG TAB PO SCH (18:04)
--- NOTE | 2023-08-29 18:04 | XRay Report ---
RIGHT KNEE 3 VIEWS CLINICAL HISTORY: Right knee pain. FINDINGS: AP, crosstable lateral, and sunrise views of the right knee are compared to study dated 12/09. The skeletal structures are osteopenic. No fracture is seen. There is moderate degenerative n arrowing at the patellofemoral articulation. Mild narrowing is seen in the medial and lateral compart ments. There are small marginal osteophytes, patellar enthesophytes, and degenerative beaking of tibi al spine. There is a joint effusion. The overlying soft tissues are normal as imaged. Atherosclerotic calcification is noted in the popliteal artery. IMPRESSION: 1. Joint effusion with no acute bony abnormality identified. 2. Osteopenia and arthritic change as above. Electronically signed by: Arnulfo Saravia M.D. 08/29/2023 6:02 PM
[2023-08-29] MEDS ORDERED: DICLOFENAC SOD 1% GEL 100 GM TUBE EXT SCH (21:00)
[2023-09-02] MEDS ORDERED: ERGOCALCIFEROL 1250 MCG (50,000 UNITS) CAP PO SCH (09:00)
== END 2023-08-29 18:48 | disposition home or self-care (01) ==
LOC: 2W 11:10 → ED 11:10 → SUATTDRO 19:00 → 2W 20:19

== ENCOUNTER 2023-11-05 17:28 | Observation (INO) ==
--- NOTE | 2023-11-05 18:45 | CT Scan Report ---
HEAD CT NONCONTRAST CT DOSE: 547.75 mGy.cm HISTORY: Lightheaded, syncope, head/neck pain TECHNIQUE: Multiaxial CT images of the head were performed without the use of intravenous contrast. A utomated exposure control was utilized for this study. A dose lowering technique was utilized adheri ng to the principles of ALARA. Comparison: Head CT 03/15/2023. Findings: The paranasal sinuses and mastoid air cells are clear. The calvarium and skull base are int act. There is no mass, hematoma, midline shift, acute infarct. White matter hypodensity is nonspecifi c but suggestive of microvascular ischemic change. The ventricles and sulci demonstrate mild age-rela nicolasa involutional changes. Impression: No significant change compared to the prior study. No acute intracranial abnormality. ACT 112: Negative or not required by law. Electronically signed by: Malcom Su M.D. 11/05/2023 6:44 PM
[2023-11-05 18:52] LABS: Basophils % (auto) 1.1 %; Eosinophils # (auto) 0.48 K/uL (0.00-0.50); Eosinophils % (auto) 5.4 %; Hemoglobin 11.5 g/dl (12.0-16.0); Immature Granulocytes # (auto) 0.02 K/uL (0.01-0.20); Immature Granulocytes % (auto) 0.2 %; Lymphocytes # (auto) 1.87 K/uL (1.20-3.40); Mean Corpuscular Hemoglobin 29.6 pg (25.0-34.0); Mean Corpuscular Hgb Conc 31.1 g/dL (32.0-36.0); Mean Corpuscular Volume 95.4 fL (80.0-100.0); Mean Platelet Volume 11.6 fL (9.4-12.4); Monocytes # (auto) 0.81 K/uL (0.11-0.59); Monocytes % (auto) 9.1 %; Neutrophils # (auto) 5.61 K/uL (1.40-6.50); Neutrophils % (auto) 63.2 %; Platelet Count 236 K/uL (130-400); RDW Coefficient of Variation 14.1 % (11.5-14.5); RDW Standard Deviation 48.4 fL (36.4-46.3); Red Blood Count 3.88 M/uL (4.20-5.40); White Blood Count 8.89 K/ul (4.8-10.8)
[2023-11-05 19:03] LABS: Albumin Globulin Ratio 1.3 (0.9-2); Albumin Level 3.9 gm/dl (3.4-5.0); BUN Creatinine Ratio 31.6 (10-20); Bilirubin,Total 0.3 mg/dl (0.2-1.0); Creatinine Clr Calc Pharmacy 19.4 ml/min; Est GFR (African American) 21.2 ml/min; Est GFR (Non-African American) 18.3 ml/min; Globulin 3.1 gm/dl (2.5-4.0); Magnesium 2.1 mg/dl (1.7-2.4); Potassium 5.8 mmol/L (3.5-5.1)
--- NOTE | 2023-11-05 19:18 | XRay Report ---
XR chest 1V portable HISTORY: Lightheaded, syncope COMPARISON: Chest 08/27/2023. FINDINGS: No pneumothorax. No pleural effusions. No focal lung consolidations to suggest a pneumonia. No evidence for pulmonary edema. The maxilla is normal in size. There are calcifications within the aortic knob. No acute fractures. IMPRESSION: No acute process. ACT 112: Negative or not required by law. Electronically signed by: Malcom Su M.D. 11/05/2023 7:17 PM
--- NOTE | 2023-11-05 19:31 | Emergency Department Note ---
Impression & Plan Acute hyperkalemia ADMIT ED Provider Note HPI: History obtained from patient. The patient is a 73-year-old female with history of chronic kidney disease, presents the emergency department with a chief complaint of dizziness with positional changes over about the past 2 weeks. Patient states has been having mostly when she is laying down and gets up to a standing position. Patient denies any chest pain or shortness of breath. On arrival here to the ER the patient is hypertensive but otherwise hemodynamically stable. She appears to be in no acute distress. ROS: - Per HPI Differential Diagnosis: Orthostatic hypotension, dehydration/KEEGAN, arrhythmia, ACS, vertigo, amongst other potential pathologies. *Outpatient medications and allergy history reviewed. PE: General: Alert HEENT: Normocephalic, trachea midline Eyes: Extraocular eye movement is intact, no scleral erythema Pulmonary: Clear to auscultation bilaterally, no wheezing Cardio: Regular rate and rhythm GI: Abdomen is soft to palpation : No suprapubic tenderness MSK: No evidence of trauma or malformation of the extremities, no edema Skin: No evidence of rash Neuro: Alert, no focal deficits Psychiatric: Cooperative INDEPENDENT INTERPRETATIONS: independent crop consultant: (As interpreted by myself): - An order was placed for continuous cardiac monitoring - Patient was noted to be in sinus rhythm with rate of 59 EKG: (As interpreted by myself): Rate: 56 Rhythm: Sinus bradycardia Intervals: Within normal limits ST changes: No ST elevation Time: 1748 Chest x-ray: (As interpreted by myself): No acute disease Interventions provided in ED: -IV insulin, Calcium gluconate, Patiromer, Albuterol, IV NSS bolus Medical Decision Making: IV was established and labwork obtained. Patient was placed on cardiac rehab nurse. Orthostatic vital signs are suggestive of orthostatic hypotension as the source of the patient's dizziness with positional changes. Chest x-ray is not showing any evidence of acute disease, CT imaging of the head does not show any evidence of any acute intracranial process. Lab work shows baseline chronic kidney disease, potassium is noted to be elevated at 5.8. EKG does not show any evidence of acute arrhythmia. Patient was ordered IV insulin as she does have some hyperglycemia in addition to hyperkalemia, she was also ordered calcium, gluconate, albuterol, IV fluid bolus, and Patiromer. Given patient's lab work she will be admitted for further care. [facility] was consulted for admission. Patient was placed for admission in stable condition. Consultants/Discussions held with other healthcare providers: -Hospitalist, Dr. Garcia Disposition discussion held by myself with: -Patient and Daughter at bedside Diagnosis: 1. Hyperkalemia, acute 2. Orthostatic hypotension 3. CKD 4. Anemia, chronic, stable Disposition: ADMIT Yakov Jarrell DO Emergency Medicine Past Med/Surg History Problem List (Updated 11/06/23 @ 11:18 by Yakov Jarrell DO) Acute hyperkalemia (Acute) Dizziness on standing Right knee pain Word finding difficulty Major depressive disorder, recurrent, in partial remission Headaches due 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 Anemia Morbid obesity with BMI of 40.0-44.9, adult Chronic kidney disease, stage IV (severe) Post concussive syndrome Weakness (Acute) TIA (transient ischemic attack) (Acute) Anxiety CKD (chronic kidney disease) stage 3, GFR 30-59 ml/min Diastolic CHF MCI (mild cognitive impairment) Early satiety Iron deficiency anemia Secondary hyperparathyroidism Acute kidney injury superimposed on CKD (Acute) Fatigue Recurrent UTI Ketonuria (Acute) Diabetic nephropathy associated with type 2 diabetes mellitus Left cataract Vitamin D deficiency Nephrotic syndrome GERD without esophagitis Arthritis Hypertension Diabetes mellitus type 2, uncontrolled IDDM Dyslipidemia HNP (herniated nucleus pulposus), lumbar Hyperthyroidism Medical History Vasovagal episode Melanoma of nose Major depressive disorder, recurrent severe without psychotic features Surgical History Status post trigger finger release History of repair of left rotator cuff History of repair of right rotator cuff History of colonoscopy History of melanoma excision History of tooth extraction all teeth removed History of bilateral cataract extraction S/P tonsillectomy S/P tubal ligation S/P cholecystectomy Family History Father Prostate cancer Diabetes Myocardial infarction Lung cancer Mother Diabetes Alzheimer disease Myocardial infarction Hypertension Brother COPD (chronic obstructive pulmonary disease) Other No family history of adverse response to anesthesia Denies family history of Ovarian cancer Breast cancer Colorectal cancer Social History Smoking Status: Never smoker Second Hand Exposure: No; Do You Dip or Chew Tobacco: No; Hx Alcohol Use: No Hx Substance Use: No Preferred Language: Swazi Communication Ability: Effective Communication Ability Comment: Reports difficulty reading now r/t dizziness Visual Impairment: No Limitations Hearing Ability: Normal Educational Diagnostician Required: No Beliefs That Will Affect Care: None marital status: Current Living Situation: Alone Current Living Situation Comment: recently current occupational status: retired current occupation: retired - worked at [employer] Other Information That Helps Us Care for You: No Feels Safe at Home: Yes Safety Concerns: Feels Safe At This Time Childhood Exposure to Second-Hand Smoke: No Diet: regular caffeine: Yes (Soda x 10 cans per day.) during the past year weight has: remained stable Dental Care, Regularly: No Physical Activity Frequency: Daily Physical Activity Frequency Comment: house chores Seatbelt Use: always Sunscreen Use: No Assistive Devices: Cane, Walker and Wheelchair Allergies Allergies Allergy/AdvReac Type Severity Reaction Status Date / Time No Known Allergies Allergy Verified 11/05/23 19:56 Home Meds Home Medications Medication Instructions Recorded Confirmed acetaminophen 500 mg tablet 1,000 mg PO Q6H PRN Pain 06/19/21 11/05/23 insulin glargine 100 unit/mL 46 unit subcut QAM 06/18/23 11/05/23 subcutaneous solution (Lantus U-100 Insulin) ascorbic acid (vitamin C) 1,000 mg 1,000 mg PO QAM 08/27/23 11/05/23 tablet (C-1000) rosuvastatin 20 mg tablet 20 mg PO QAM 11/05/23 11/05/23 Previous Rx's Medication Instructions Recorded lancets (Accu-Chek Softclix #200 ea 04/27/22 Lancets) blood sugar diagnostic (Accu-Chek #100 ea 01/30/23 Guide test strips) blood-glucose meter (Accu-Chek #1 ea 02/13/23 Guide Glucose Meter) aspirin 81 mg tablet,delayed 81 mg PO QAM #0 tabs 03/20/23 release flash glucose sensor (FreeStyle #2 ea 04/19/23 Darek 14 Day Sensor kit) methimazole 10 mg tablet 5 mg (1/2 x 10 mg) PO QAM #90 tabs 05/13/23 Incentive Spirometer #1 ea 05/14/23 lisinopril 40 mg tablet 40 mg PO DAILY #90 tabs 05/23/23 amlodipine 5 mg tablet 5 mg PO HS #90 tabs 06/12/23 labetalol 200 mg tablet 200 mg PO BID #60 tabs 06/12/23 pantoprazole 40 mg tablet,delayed 40 mg PO QAM #90 tabs 06/25/23 release empagliflozin 10 mg tablet 10 mg PO DAILY #90 tabs 07/25/23 (Jardiance) calcitriol 0.25 mcg capsule 0.25 mcg PO 3XWK #36 caps 08/19/23 diclofenac sodium 1 % topical gel 2 g EXT QID PRN right knee pain 08/29/23 (Voltaren Arthritis Pain) #100 grams buspirone 15 mg tablet 15 mg PO BID #60 tabs 09/03/23 epoetin rosa 40,000 unit/mL 40,000 unit subcut .Qmonth 30 days 09/19/23 injection solution (Procrit) #4 mL venlafaxine 150 mg 150 mg PO QAM #90 caps 10/24/23 capsule,extended release 24 hr (Effexor XR) magnesium oxide 400 mg (241.3 mg 400 mg PO DAILY #30 tabs 10/28/23 magnesium) tablet Results & Data (ED) Vital Signs Vital Signs - 24 hr 11/05/23 17:41 11/05/23 19:27 11/05/23 19:27 Temperature 36.1 C L Temperature Source Temporal Artery Scan Pulse Rate - Lying Pulse Rate - Sitting Pulse Rate - Standing Pulse Rate 56 L Pulse Rate [Apical] 55 L Pulse Rhythm Regular Pulse Strength Normal Respiratory Rate 20 17 Respiratory Effort / Characteristics Non-Labored Spontaneous Respiratory Depth Normal Respiratory Pattern Regular Blood Pressure - Lying Blood Pressure - Sitting Blood Pressure- Standing Blood Pressure 151/76 H Blood Pressure [Right Arm] 201/84 H Blood Pressure Mean 101 Blood Pressure Mean [Right Arm] 123 Blood Pressure Position Sitting Pulse Oximetry 98 98 99 Oxygen Delivery Method Room Air Room Air Room Air Sepsis Recent Fever Within 48 Hours No Sepsis New/Unexplained Change in Mental Status No Sepsis Action Taken by Nursing No Action Required 11/05/23 19:27 11/05/23 19:29 11/05/23 19:58 Temperature Temperature Source Pulse Rate - Lying 55 L Pulse Rate - Sitting 60 Pulse Rate - Standing 63 Pulse Rate Pulse Rate [Apical] 55 L Pulse Rhythm Pulse Strength Respiratory Rate 18 Respiratory Effort / Characteristics Non-Labored Spontaneous Respiratory Depth Respiratory Pattern Blood Pressure - Lying 180/82 H Blood Pressure - Sitting 167/82 H Blood Pressure- Standing 135/65 Blood Pressure Blood Pressure [Right Arm] Blood Pressure Mean Blood Pressure Mean [Right Arm] Blood Pressure Position Pulse Oximetry 99 98 Oxygen Delivery Method Room Air Room Air Sepsis Recent Fever Within 48 Hours Sepsis New/Unexplained Change in Mental Status Sepsis Action Taken by Nursing 11/05/23 20:21 Temperature Temperature Source Pulse Rate - Lying Pulse Rate - Sitting Pulse Rate - Standing Pulse Rate 57 L Pulse Rate [Apical] Pulse Rhythm Pulse Strength Respiratory Rate Respiratory Effort / Characteristics Respiratory Depth Respiratory Pattern Blood Pressure - Lying Blood Pressure - Sitting Blood Pressure- Standing Blood Pressure Blood Pressure [Right Arm] Blood Pressure Mean Blood Pressure Mean [Right Arm] Blood Pressure Position Pulse Oximetry Oxygen Delivery Method Sepsis Recent Fever Within 48 Hours Sepsis New/Unexplained Change in Mental Status Sepsis Action Taken by Nursing Laboratory Data 11/05/23 17:55 11/06/23 06:41 Lab Results 11/05/23 11/05/23 Range/Units 17:55 20:28 WBC 8.89 (4.8-10.8) K/ul RBC 3.88 L (4.20-5.40) M/uL Hgb 11.5 L (12.0-16.0) g/dl Hct 37.0 (37.0-47.0) % MCV 95.4 (80.0-100.0) fL MCH 29.6 (25.0-34.0) pg MCHC 31.1 L (32.0-36.0) g/dL RDW Std Deviation 48.4 H (36.4-46.3) fL RDW Coeff of Emil 14.1 (11.5-14.5) % Plt Count 236 (130-400) K/uL MPV 11.6 (9.4-12.4) fL Immature Gran % (Auto) 0.2 % Neut % (Auto) 63.2 % Lymph % (Auto) 21.0 % [place] % (Auto) 9.1 % Eos % (Auto) 5.4 % Baso % (Auto) 1.1 % Neut # (Auto) 5.61 (1.40-6.50) K/uL Lymph # (Auto) 1.87 (1.20-3.40) K/uL [place] # (Auto) 0.81 H (0.11-0.59) K/uL Eos # (Auto) 0.48 (0.00-0.50) K/uL Baso # (Auto) 0.10 (0.00-0.20) K/uL Immature Gran # (Auto) 0.02 (0.01-0.20) K/uL Sodium 134 L (136-145) mmol/L Potassium 5.8 H (3.5-5.1) mmol/L Chloride 105 (98-107) mmol/L Carbon Dioxide 21 (21-32) mmol/L Anion Gap 8 (3-11) BUN 79 H (6-23) mg/dl Creatinine 2.50 H (0.6-1.2) mg/dl Est Cr Clr Drug Dosing 19.4 ml/min Est GFR ( Amer) 21.2 ml/min Est GFR (Non-Af Amer) 18.3 ml/min BUN/Creatinine Ratio 31.6 H (10-20) Glucose 252 H (70-99(Fasting)) mg/dl Calcium 9.0 (8.6-10.3) mg/dl Magnesium 2.1 (1.7-2.4) mg/dl Total Bilirubin 0.3 (0.2-1.0) mg/dl AST 12 L (13-39) U/L ALT 7 (7-52) U/L Alkaline Phosphatase 67 (34-104) U/L Total Protein 7.0 (6.0-8.3) gm/dl Albumin 3.9 (3.4-5.0) gm/dl Globulin 3.1 (2.5-4.0) gm/dl Albumin/Globulin Ratio 1.3 (0.9-2) Urine Color Yellow Urine Appearance Clear (Clear) Urine pH 5.5 (4.5-7.5) Ur Specific [place] 1.020 (1.000-1.030) Urine Protein 3+ H (Negative) Urine Glucose (UA) 2+ H (Negative) Urine Ketones Negative (Negative) Urine Blood Negative (Negative) Urine Nitrite Negative (Negative) Urine Bilirubin Negative (Negative) Urine Urobilinogen Negative (Negative) Ur Leukocyte Esterase Negative (Negative) Urine WBC (Auto) 0-5 (0-5) /hpf Urine RBC (Auto) 0-2 (0-2) /hpf U Hyaline Cast (Auto) 3-5 H (0-2) /lpf U Epithel Cells (Auto) 0-2 (0-2) /hpf Urine Bacteria (Auto) None Seen (None Seen) Administered Medications Discontinued Medications Albuterol (Albuterol 0.5% Neb Soln 2.5 Mg/0.5 Ml Vial) 10 mg NEB NOW STA Stop: 11/05/23 19:32 Last Admin: 11/05/23 19:55 Dose: 10 mg Documented By: SOFYA Amlodipine Besylate (Amlodipine Besylate 5 Mg Tab) 5 mg PO NOW ONE Stop: 11/05/23 21:13 Last Admin: 11/05/23 22:46 Dose: Not Given Documented By: JORY Amlodipine Besylate (Amlodipine Besylate 5 Mg Tab) Confirm Administered Dose 5 mg .ROUTE .STK-MED ONE Stop: 11/05/23 21:18 Last Admin: 11/05/23 21:19 Dose: Not Given Documented By: RICHARDSON Aspirin (Aspirin 81 Mg Ectab) 81 mg PO QAM [facility] Stop: 12/06/23 08:59 Last Admin: 11/06/23 09:29 Dose: 81 mg Documented By: ELIZA Buspirone HCl (Buspirone 15 Mg Tab) 15 mg PO BID [facility] Stop: 12/05/23 22:00 Last Admin: 11/06/23 09:29 Dose: 15 mg Documented By: Admin: 11/05/23 23:08 Dose: 15 mg Documented By: JORY Sodium Chloride (Nss) 1,000 mls @ 999 mls/hr IV .Q1H1M ONE Stop: 11/05/23 20:29 Last Infusion: 11/05/23 21:04 Dose: Infused Documented By: Admin: 11/05/23 19:45 Dose: 999 mls/hr Documented By: RICHARDSON Insulin Human Regular 5 units/ (Syringe) 9.9 mls @ 3 mls/sec IV ONE STA Stop: 11/05/23 19:32 Last Admin: 11/05/23 20:04 Dose: 3 mls/sec Documented By: RICHARDSON Co-signed By: MARIA L Calcium Gluconate () 1,000 mg in 60 mls @ 240 mls/hr IV NOW STA Stop: 11/05/23 19:45 Last Infusion: 11/05/23 20:00 Dose: Infused Documented By: Admin: 11/05/23 19:45 Dose: 240 mls/hr Documented By: RICHARDSON Sodium Chloride (Nss) 1,000 mls @ 80 mls/hr IV .[id number] IAN Stop: 11/06/23 22:14 Last Admin: 11/06/23 12:21 Dose: 80 mls/hr Documented By: Infusion: 11/06/23 11:44 Dose: Infused Documented By: Admin: 11/05/23 23:14 Dose: 80 mls/hr Documented By: JORY Insulin Aspart (Insulin Aspart Per Unit Charge) 0 units SC ACHS IAN Stop: 12/05/23 22:00 Last Admin: 11/06/23 14:10 Dose: Not Given Documented By: Admin: 11/06/23 09:27 Dose: 2 units Documented By: ELIZA Co-signed By: LATOYA Admin: 11/05/23 23:06 Dose: 1 units Documented By: JORY Co-signed By: RAMOS Insulin Glargine (Lantus Per Unit Charge) 46 units SQ QAM [facility] Stop: 12/06/23 08:59 Last Admin: 11/06/23 09:28 Dose: 46 units Documented By: ELIZA Co-signed By: LATOYA Labetalol HCl (Labetalol Hcl 200 Mg Tab) 200 mg PO BID [facility] Stop: 12/05/23 22:00 Last Admin: 11/06/23 09:28 Dose: 200 mg Documented By: Admin: 11/05/23 23:08 Dose: 200 mg Documented By: JORY Magnesium Oxide (Magnesium Oxide 400 Mg Tab) 400 mg PO DAILY IAN Stop: 12/06/23 08:59 Last Admin: 11/06/23 09:28 Dose: 400 mg Documented By: ELIZA Methimazole (Methimazole 5 Mg Tablet) 5 mg PO QAM IAN Stop: 12/06/23 08:59 Last Admin: 11/06/23 09:29 Dose: 5 mg Documented By: ELIZA Pantoprazole Sodium (Pantoprazole 40 Mg Tab) 40 mg PO QAM [facility] Stop: 12/06/23 08:59 Last Admin: 11/06/23 09:29 Dose: 40 mg Documented By: ELIZA Patiromer (Patiromer Calcium Sorbitex 8.4 Gm Pack) 8.4 gm PO NOW STA Stop: 11/05/23 19:35 Last Admin: 11/05/23 20:04 Dose: 8.4 gm Documented By: RICHARDSON Venlafaxine HCl (Venlafaxine Hcl Xr 150 Mg Capxr) 150 mg PO QAM IAN Stop: 12/06/23 08:59 Last Admin: 11/06/23 09:29 Dose: 150 mg Documented By: ELIZA Imaging Data Radiologist's Impression: Chest X-Ray 11/05/23 17:46 XR chest 1V portable HISTORY: Lightheaded, syncope COMPARISON: Chest 08/27/2023. FINDINGS: No pneumothorax. No pleural effusions. No focal lung consolidations to suggest a pneumonia. No evidence for pulmonary edema. The maxilla is normal in size. There are calcifications within the aortic knob. No acute fractures. IMPRESSION: No acute process. ACT 112: Negative or not required by law. Electronically signed by: Malcom Su M.D. 11/05/2023 7:[address] 11/05/23 17:[address] DOSE: 547.75 mGy.cm HISTORY: Lightheaded, syncope, head/neck pain TECHNIQUE: Multiaxial CT images of the head were performed without the use of intravenous contrast. Automated exposure control was utilized for this study. A dose lowering technique was utilized adhering to the principles of ALARA. Comparison: Head CT 03/15/2023. Findings: The paranasal sinuses and mastoid air cells are clear. The calvarium and skull base are intact. There is no mass, hematoma, midline shift, acute infarct. White matter hypodensity is nonspecific but suggestive of microvascular ischemic change. The ventricles and sulci demonstrate mild age-related involutional changes. Impression: No significant change compared to the prior study. No acute intracranial abnormality. ACT 112: Negative or not required by law. Electronically signed by: Malcom Su M.D. 11/05/2023 6:44 PM Discharge Plan Visit Data Chief Complaint: Dizziness Stated Complaint: DIZZY/FEELS FAINT WHILE STANDING UP ED Provider: Yakov Jarrell Discharge Problem: Acute hyperkalemia Patient Disposition: Admitted As Inpatient Discharge Instructions Interventions: ED Discharge Assessment Last Done: 11/05/23 22:07
[2023-11-05] MEDS: SODIUM CHLORIDE 0.9% 1,000 ML IV ONE (19:45)
[2023-11-05] MEDS: CALCIUM GLUCONATE 1,000 MG/60 ML BAG IV STA (19:45)
[2023-11-05] MEDS: ALBUTEROL 0.5% NEB SOLN 2.5 MG/0.5 ML VIAL NEB STA (19:55)
[2023-11-05] MEDS: INSULIN HUMAN REGULAR PER UNIT 5 UNITS in SYRINGE 9.9 ML IV STA (20:04)
[2023-11-05] MEDS: PATIROMER CALCIUM SORBITEX 8.4 GM PACK PO STA (20:04)
[2023-11-05 20:49] LABS: Appearance Urine Clear (Clear); Bacteria Urine Automated None Seen (None Seen); Bilirubin Urine Negative (Negative); Blood Urine Negative (Negative); Color Urine Yellow; Epithelial Cell Urine Auto 0-2 /hpf (0-2); Glucose Urine UA 2+ (Negative); Ketones Urine Negative (Negative); Leukocyte Esterase Urine Negative (Negative); Nitrite Urine Negative (Negative); Protein Urine 3+ (Negative); RBC Urine Automated 0-2 /hpf (0-2); Urobilinogen Urine Negative (Negative); WBC Urine Automated 0-5 /hpf (0-5); pH Urine 5.5 (4.5-7.5)
--- NOTE | 2023-11-05 20:59 | History & Physical Report ---
Date of Service November 05, 2023 Assessment & Plan (1) Dizziness on standing: (2) Hyperkalemia: (3) Diabetes mellitus type 2, uncontrolled: (4) GERD without esophagitis: (5) Hyperthyroidism: (6) Chronic kidney disease, stage IV (severe): (7) Major depressive disorder, recurrent, in partial remission: (8) Anemia: (9) Anxiety: (10) Hypertension: (11) Diastolic CHF: Plan 77 yo female PMHx CKD-IV, CHF, anemia, HTN, T2DM, GERD, hyperthyroidism, anxiety, and depression admitted for dizziness on standing x2 weeks found to be hyperkalemic. #Dizziness on standing Dehydration vs orthostatic hypotension UA negative for infection afebrile CXR, head CT negative for acute process #Hyperkalemia Rec'd calcium gluconate, insulin, albuterol, Veltassa Will recheck BMP tonight and again in AM Continue Veltassa Consider nephrology consult #KEEGAN on CKD-IV s/p 1L NSS continue NSS @80ml/hr x2L follow BMP hold lisinopril, Jardiance #T2DM Lantus 46U qAM ISS home regimen held #GERD continue Protonix #Hyperthyroidism Will check TSH - last in 2022 1.35 continue methimazole #Anxiety/Depression venlafaxine #CHF grade I diastolic dysfunction, EF 55-60% appears euvolemic on exam FENGI: heart healthy, DM2, low potassium Code status: DNR/DNI DVT prophylaxis: heparin Isolation: none Disposition: PCU History of Present Illness Primary Care Provider: LISA Calle 77 yo female PMHx CKD-IV, CHF, anemia, HTN, T2DM, GERD, hyperthyroidism, anxiety, and depression admitted for dizziness on standing x2 weeks found to be hyperkalemic. States that she becomes lightheaded and or has sensation of room spinning. when she stands and that this has never happened to her before. She describes presyncopal symptoms, denies syncope. Symptoms resolve when she sits down. Has a history of orthostasis that is noted in her hospital discharge follow up after her last admission. States that she is eating and drinking normally. Denies CP, SOB, N/V/D, abdominal pain or UTI symptoms. ED course: Head CT and CXR negative for acute process EKG normal K 5.8 on presentation. Received insulin, Veltassa, albuterol, calcium gluconate Creatinine elevated to 2.5 (baseline appears ~2.3) s/p 1L NSS bolus Allergies Allergy/AdvReac Type Severity Reaction Status Date / Time No Known Allergies Allergy Verified 11/05/23 19:56 Home Medications Medication Instructions Recorded Confirmed Type acetaminophen 500 mg tablet 1,000 mg PO Q6H PRN Pain 06/19/21 11/05/23 History lancets (Accu-Chek Softclix #200 ea 04/27/22 10/08/23 Rx Lancets) blood sugar diagnostic (Accu-Chek #100 ea 01/30/23 10/08/23 Rx Guide test strips) blood-glucose meter (Accu-Chek #1 ea 02/13/23 10/08/23 Rx Guide Glucose Meter) aspirin 81 mg tablet,delayed 81 mg PO QAM #0 tabs 03/20/23 11/05/23 Rx release flash glucose sensor (FreeStyle #2 ea 04/19/23 10/08/23 Rx Darek 14 Day Sensor kit) methimazole 10 mg tablet 5 mg (1/2 x 10 mg) PO QAM #90 tabs 05/13/23 11/05/23 Rx Incentive Spirometer #1 ea 05/14/23 10/08/23 Rx lisinopril 40 mg tablet 40 mg PO DAILY #90 tabs 05/23/23 11/05/23 Rx amlodipine 5 mg tablet 5 mg PO HS #90 tabs 06/12/23 11/05/23 Rx labetalol 200 mg tablet 200 mg PO BID #60 tabs 06/12/23 11/05/23 Rx insulin glargine 100 unit/mL 46 unit subcut QAM 06/18/23 11/05/23 History subcutaneous solution (Lantus U-100 Insulin) pantoprazole 40 mg tablet,delayed 40 mg PO QAM #90 tabs 06/25/23 11/05/23 Rx release empagliflozin 10 mg tablet 10 mg PO DAILY #90 tabs 07/25/23 11/05/23 Rx (Jardiance) calcitriol 0.25 mcg capsule 0.25 mcg PO 3XWK #36 caps 08/19/23 11/05/23 Rx ascorbic acid (vitamin C) 1,000 mg 1,000 mg PO QAM 08/27/23 11/05/23 History tablet (C-1000) diclofenac sodium 1 % topical gel 2 g EXT QID PRN right knee pain 08/29/23 11/05/23 Rx (Voltaren Arthritis Pain) #100 grams buspirone 15 mg tablet 15 mg PO BID #60 tabs 09/03/23 11/05/23 Rx epoetin rosa 40,000 unit/mL 40,000 unit subcut .Qmonth 30 days 09/19/23 11/05/23 Rx injection solution (Procrit) #4 mL venlafaxine 150 mg 150 mg PO QAM #90 caps 10/24/23 11/05/23 Rx capsule,extended release 24 hr (Effexor XR) magnesium oxide 400 mg (241.3 mg 400 mg PO DAILY #30 tabs 10/28/23 11/05/23 Rx magnesium) tablet rosuvastatin 20 mg tablet 20 mg PO QAM 11/05/23 11/05/23 History Past Med/Surg History Problem List (Updated 11/06/23 @ 11:18 by Yakov Jarrell DO) Acute hyperkalemia (Acute) Dizziness on standing Right knee pain Word finding difficulty Major depressive disorder, recurrent, in partial remission Headaches due 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 Anemia Morbid obesity with BMI of 40.0-44.9, adult Chronic kidney disease, stage IV (severe) Post concussive syndrome Weakness (Acute) TIA (transient ischemic attack) (Acute) Anxiety CKD (chronic kidney disease) stage 3, GFR 30-59 ml/min Diastolic CHF MCI (mild cognitive impairment) Early satiety Iron deficiency anemia Secondary hyperparathyroidism Acute kidney injury superimposed on CKD (Acute) Fatigue Recurrent UTI Ketonuria (Acute) Diabetic nephropathy associated with type 2 diabetes mellitus Left cataract Vitamin D deficiency Nephrotic syndrome GERD without esophagitis Arthritis Hypertension Diabetes mellitus type 2, uncontrolled IDDM Dyslipidemia HNP (herniated nucleus pulposus), lumbar Hyperthyroidism Medical History Vasovagal episode Melanoma of nose Major depressive disorder, recurrent severe without psychotic features Surgical History Status post trigger finger release History of repair of left rotator cuff History of repair of right rotator cuff History of colonoscopy History of melanoma excision History of tooth extraction all teeth removed History of bilateral cataract extraction S/P tonsillectomy S/P tubal ligation S/P cholecystectomy Family History Father Prostate cancer Diabetes Myocardial infarction Lung cancer Mother Diabetes Alzheimer disease Myocardial infarction Hypertension Brother COPD (chronic obstructive pulmonary disease) Other No family history of adverse response to anesthesia Denies family history of Ovarian cancer Breast cancer Colorectal cancer Social History Smoking Status: Never smoker Second Hand Exposure: No; Do You Dip or Chew Tobacco: No; Hx Alcohol Use: No Hx Substance Use: No Preferred Language: Bengali Communication Ability: Effective Communication Ability Comment: Reports difficulty reading now r/t dizziness Visual Impairment: No Limitations Hearing Ability: Normal Case Management Director Required: No Beliefs That Will Affect Care: None marital status: Current Living Situation: Alone Current Living Situation Comment: recently current occupational status: retired current occupation: retired - worked at [employer] Other Information That Helps Us Care for You: No Feels Safe at Home: Yes Safety Concerns: Feels Safe At This Time Childhood Exposure to Second-Hand Smoke: No Diet: regular caffeine: Yes (Soda x 10 cans per day.) during the past year weight has: remained stable Dental Care, Regularly: No Physical Activity Frequency: Daily Physical Activity Frequency Comment: house chores Seatbelt Use: always Sunscreen Use: No Assistive Devices: Cane, Walker and Wheelchair Review of Systems Review of Systems: reviewed, per HPI Physical Exam Physical Exam: Constitutional: chronically ill appearing, no acute distress HEENT: NCAT, no conjunctival injection CV: regular rhythm, no murmur appreciated, extremities well-perfused, no LE edema Resp: CTABL, no wheezes/rales/rhonchi appreciated, no increased work of breathing GI: soft, nondistended, nontender MSK: no gross deformities appreciated Skin: warm, dry, no rash appreciated Neuro: alert, oriented, no focal neurologic deficit appreciated Results & Data Results & Data Vital Signs (Past 12 Hours) Vital Signs Temp Pulse Pulse Resp BP BP Pulse Ox 11/05/23 20:21 57 L 11/05/23 19:58 55 L 18 98 11/05/23 19:27 99 11/05/23 19:27 55 L 17 201/84 H 99 11/05/23 19:27 98 11/05/23 17:41 36.1 C L 56 L 20 151/76 H 98 O2 Del Method 11/05/23 20:21 11/05/23 19:58 Room Air 11/05/23 19:27 Room Air 11/05/23 19:27 Room Air 11/05/23 19:27 Room Air 11/05/23 17:41 Room Air Code Status & VTE Plan VTE Prophylaxis Plan VTE Prophylaxis will be ordered: Yes Supervising Physician Co-Signing Physician Notes Attending addendum: I have physically seen this patient, have supervised the medical residents activities, and agree with the H&P unless as otherwise noted. Assessment and Plan: Dizziness upon standing- Unclear orthostatic hypotension aggravated by dehydration Admit to telemetry for possible arrhythmia CT head negative for acute process Hyperkalemia/acute kidney injury superimposed on CKD- Potassium 5.8 Creatinine 2.5 with base 1.78 From the ED received the following: Normal saline 1 L, regular insulin 5 units IV, calcium gluconate 1 g IV, Veltassa 8.4 g and Ventolin 10 mg nebulizer Recheck laboratories in 3 hours Continue IV fluids as noted, normal saline at 80 mL/h x 2 additional liters Follow serial BMP and magnesium level Holding lisinopril and Jardiance Diabetes mellitus- Reduce Lantus as noted Patient Accu-Cheks with NovoLog SSI Remaining orders and notations as noted Resident Activity Tracking Resident Involvement: Resident Care Provided Care Provided: Adult Hospital Medicine (3) Diabetes mellitus type 2, uncontrolled Glycemic state: with hyperglycemia Qualified Code(s): E11.65 - Type 2 diabetes mellitus with hyperglycemia (8) Anemia Anemia type: due to chronic kidney disease Chronic kidney disease stage: stage 4 (severe) Qualified Code(s): N18.4 - Chronic kidney disease, stage 4 (severe); D63.1 - Anemia in chronic kidney disease (10) Hypertension Hypertension type: unspecified Qualified Code(s): I10 - Essential (primary) hypertension (11) Diastolic CHF Heart failure chronicity: chronic Qualified Code(s): I50.32 - Chronic diastolic (congestive) heart failure
[2023-11-05] MEDS: amLODIPine BESYLATE 5 MG TAB ONE (21:19)
[2023-11-05] MEDS ORDERED: ONDANSETRON INJ 2 MG/ML 2 ML VIAL IV PRN (22:01)
[2023-11-05] MEDS ORDERED: GLUCAGON FOR INJ 1 MG VIAL SQ PRN (22:01)
[2023-11-05] MEDS ORDERED: ALUMINUM/MAGNESIUM SUSP 30 ML UDC PO PRN (22:01)
[2023-11-05] MEDS ORDERED: MAGNESIUM HYDROXIDE SUSP 30 ML UDC PO PRN (22:01)
[2023-11-05] MEDS ORDERED: ACETAMINOPHEN 325 MG TAB PO PRN (22:01)
[2023-11-05] MEDS ORDERED: GLUCOSE 10 TAB/TUBE PO PRN (22:01)
[2023-11-05] MEDS ORDERED: GLUCOSE 40% GEL 15 GM TUBE PO PRN (22:01)
[2023-11-05] MEDS ORDERED: DEXTROSE 50% 50 ML SYRINGE IV PRN (22:01)
[2023-11-05] MEDS ORDERED: CARBOHYDRATES FOR HYPOGLYCEMIA PO PRN (22:01)
[2023-11-05] MEDS ORDERED: POLYETHYLENE (MIRALAX) 17 GM PACK PO PRN (22:01)
[2023-11-05] MEDS: amLODIPine BESYLATE 5 MG TAB PO ONE (22:46)
[2023-11-05] MEDS: INSULIN ASPART PER UNIT CHARGE SC SCH (23:06)
[2023-11-05 23:08] LABS: BUN Creatinine Ratio 31.1 (10-20); Calcium 8.8 mg/dl (8.6-10.3); Creatinine Clr Calc Pharmacy 20.4 ml/min; Est GFR (African American) 22.5 ml/min; Est GFR (Non-African American) 19.4 ml/min; Potassium 5.1 mmol/L (3.5-5.1)
[2023-11-05] MEDS: busPIRone 15 MG TAB PO SCH (23:08)
[2023-11-05] MEDS: LABETALOL HCL 200 MG TAB PO SCH (23:08)
[2023-11-05] MEDS: SODIUM CHLORIDE 0.9% 1,000 ML IV SCH (23:14)
[2023-11-05 23:23] LABS: Thyroid Stimulating Hormone 1.449 uIu/ml (0.300-4.500)
--- OUTSIDE RECORDS SUMMARY | 2023-11-05 23:58 | External Medical Summary | Summary of Care ---
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 Procedures [place] AFLIBERCEPT INJECTION [place] INTRAVITREAL NJX PHARMACOLOGIC AGT SPX Manuel Jenkins DO [address] [place] [address] Referral ID Status Reason Start Date Expiration Date V isits Requested Visits Authorized [id number] Authorized Precert 06/21/2023 04/07/2099 [id number] Encounter Details Date Type Department Care Team (Late st Contact Info) Description 10/29/2023 2:45 PM EDT Office Visit Ophthalmology, [facility] [address] [place] [address] Manuel Jenkins DO [address] [place] [address] 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 Diagnosis code of 250.00 1 Box Dosing Unit 5 7 Active aspirin enteric coated 81 MG TBECIndications:Ty pe 2 diabetes mellitus with hyperglycemia (HCC) Take 1 Tablet by mouth in the morning. 100 Tab 7 Active methimazole (TAPAZOLE) 10 MG Tablet TAKE 1 TABLET BY MOUTH DAILY 30 Tab 8 Active Glucose Blood (ONETOUCH VERIO) STRP Use up to 3 times a day E11.9 100 Strip 11 8 Active Multiple Vitamins-Minerals (MULTIVITAMIN ADULT) TABS Take by mouth. Active venlafaxine XR (EFFEXOR XR) 75 MG [id number]:Mo derate episode of recurrent major depressive disorder (HCC) Take 1 Cap by mouth daily. Do not cut, crush or chew 30 Cap 5 8 Active Additional Information Patient taking differently: 150 mgOral Daily(AM), Do not cut, crush or chew,Indications: in morning, Reported on 06/21/2023 ONETOUCH DELICA LANCETS 33G MISC Test 3 times daily Dx: E 11.9 100 Each 1 8 Active pantoprazole (PROTONIX) 40 MG TBEC TAKE 1 TABLET BY MOUTH DAILY 30 MINUTES BEFORE FIRST MEAL OF THE DAY. DO NOT CRUSH, SPLIT OR CHEW THE TABLET. 30 Tab 5 8 Active Insulin Lispro Prot & Lispro (HUMALOG MIX 75/25 KWIKPEN) (75-25) 100 UNIT/ML SUPNIndications:Ty pe 2 diabetes, HbA1C goal < 8% (HCC) INJECT 45 UNITS BEFORE BREAKFAST AND 30 UNITS BEFORE SUPPER 36 Pre-filled Pen Syringe Dosing Unit 1 8 Active Doxylamine Succinate (Sleep) 25 MG Oral Tablet Take 1 Tablet by mouth at bedtime as needed for Sleep. 8 Active metoprolol tartrate (LOPRESSOR) 50 MG Tablet Take 1 Tablet by mouth in the morning. Active Ketorolac Tromethamine 0.5 % Ophthalmic Solution (Acular) Instill 1 drop in both eyes 2 times per day 5 mL 6 2 Active Atorvastatin Calcium 40 MG Oral Tablet (Lipitor) Take 1 Tablet by mouth. 8 Active Furosemide 20 MG Oral Tablet (Lasix) 2 Active Insulin Lispro 100 UNIT/ML Subcutaneous Solution Inject under the skin. 6 Active Simvastatin 40 MG Oral Tablet Take 1 Tablet by mouth. 5 Active Jardiance 10 MG Oral Tablet Take 1 Tablet by mouth in the morning. 4 Active busPIRone HCl 15 MG Oral Tablet (Buspar) Take 1 Tablet by mouth in the morning and 1 Tablet before bedtime. 4 Active Labetalol HCl 200 MG Oral Tablet (Normodyne) Take 1 Tablet by mouth daily. 4 Active Rosuvastatin Calcium 20 MG Oral Tablet (Crestor) Take 1 Tablet by mouth in the morning. 4 Active Magnesium Oxide 400 MG Oral Tablet Take 1 Tablet by mouth in the morning. 4 Active Lisinopril 30 MG Oral Tablet 4 Active Lantus 100 UNIT/ML Subcutaneous Solution 4 Active Vitamin B-12 1000 MCG Oral Tablet (Cyanocobalamin) TAKE ONE TABLET IN THE MORNING 4 Active D3 High Potency 125 MCG (5000 UT) Oral Capsule TAKE ONE CAPSULE IN THE MORNING 4 Active C-1000 1000 MG Oral Tablet TAKE ONE TABLET IN THE MORNING 4 Active amLODIPine Besylate 5 MG Oral Tablet (Norvasc) Take 1 Tablet by mouth at bedtime. 4 Active Lisinopril 40 MG Oral Tablet 1 10/29/19 24 Discontinued amLODIPine Besylate 10 MG Oral Tablet (Norvasc) 2 10/29/19 24 Discontinued Calcitriol 0.25 MCG Oral Capsule (Rocaltrol) 2 10/29/19 24 Discontinued MAGnesium-Oxide 400 (240 Mg) MG Oral Tablet Take 1 Tablet by mouth in the morning. 4 10/29/19 24 Discontinued Hospital, Clinic, or Other Facility Administered Medication Ordered Dose Route Frequency Start Date End Date Status ROPivacaine (Naropin) inj 1.5 mg 1.5 mg IJ PRN 06/21/2023 06/20/2024 Active Aflibercept (Eylea) intraviteal prefilled syringe 2 mg 2 mg IZ PRN 06/21/2023 06/20/2024 Active documented as of this encounter (statuses as of 10/29/2023) Active Problems Problem Noted Date Diagnosed Date Hyperthyroidism 12/04/2017 Food insecurity 11/19/2017 Overview: Per [facility] Protocol Moderate episode of recurrent major depressive d isorder 10/18/2017 Type 2 diabetes mellitus with hyperglycemia 12/08 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 Esophageal reflux Anxiety states Overview: ICD-10 update of inactive term Type 2 diabetes, HbA1C goal < 8% Overview: ICD-10 update of inactive term documented as of this encounter (statuses as of 10/29/2023) Resolved Problems Problem Noted Date Diagnosed Date Resolved Date History of hyperthyroidism 12/04/2017 0 12/04/2017 Hyperthyroidism 06/01/2016 12/04/2017 Thyrotoxicosis 05/24/2008 10/18/2017 Type 2 diabetes mellitus wit h hemoglobin A1c goal of less than 7.0% 09/21/2008 Overview: ICD-10 update of inactive term HTN, goal to be determined 1 04/30/2008 Overview: Modified per HTN protocol #16. Dyslipidemia, goal to be determined 10/11/2010 documented as of this encounter (statuses as of 10/29/2023) Immunizations Name Administration Dates Next Due Pneumococcal Conjugate Vacc, 13 Valent (Prevnar) 02/04/2018 Pneumococcal Polysaccharide PPV23 (Pneumovax) Seasonal Influenza, PF, 6 M & above, IM , (FluLaval or Fluzone) 02/04/2018 TDAP, Age 7 and older, IM (Adacel) 10/31/2009 documented as of this encounter Social History Tobacco Use Types Packs/Day Years Used Date Smoking Tobacco: Never Smokeless Tobacco: Never Alcohol Use Standard Drinks/Week Comments No 0 (1 standard drink = 0.6 oz pur e alcohol) PHQ-2 Answer Date Recorded PHQ-2 Score 4 02/09/2018 Utilities Answer Date Recorded Do you have trouble paying y our heating, water, or electric bill? (Adult - for ages 18 years and over) Not on file 09/24/2023 Is your family able to pay t he heat, water, or electric bill? (Household - for ages 0-17 years) Not on file 09/24/2023 Does your family have access to good internet? (Household - for ages 0-17 years) Not on file 09/24/2023 Social Connections Answer Date Recorded How often do you feel lonely or isolated from those around you? (Adult - for ages 18 years and over) Not on file 09/24/2023 Sex and Gender Information Value Date Recorded Sex Assigned at Not on file Gender Identity Not on file Sexual Orientation Not on file Job Start Date Occupation Industry Not on file Not on file Not on file documented as of this encounter Progress Notes * Manuel Jenkins, - 10/29/2023 2:45 PM EDT [facility] [place] Nursing notes reviewed. Eye vitals reviewed. Mood and Affect: normal HPI: Elida Mei is a 72 year old female who presents for evaluation of DR No other eye complaints. Denies significant pain. Base Eye Exam Visual Acuity (Snellen - Linear) Right Left Dist sc 20/80 -1 20/70 -1 Tonometry (Tonopen, 3:02 PM) Right Left Pressure 16 17 Pupils Pupils React APD Right PERRL Brisk None Left PERRL Brisk None Visual Cardenas (Counting fingers) Full OU Extraocular Movement Right Left Full, Ortho Full, Ortho Neuro/Psych Oriented x3: Yes Mood/Affect: Normal Dilation Both eyes: 0.5% Proparacaine @ 3:00 PM Dilation #2 Both eyes: 1.0% Mydriacyl, 2.5% Phenylephrine @ 3:02 PM Dilation #3 Both eyes: 1.0% Mydriacyl @ 3:04 PM Dilation Comments Patient cautioned that effects of dilation may last 2-7 hours dependant upon individual reaction. It was discussed that driving while dilated is not recommended. EXTERNAL: The ocular adnexae are unremarkable. SLE: Lids/Lashes: wnl OU Conjunctiva/Sclera: quiet OU Cornea: clear OU Anterior Chamber: deep and quiet OU Iris: normal OU; no NVI OU Lens: PCIOL OU Dilated fundus exam OD: vitreous: clear optic nerve: 0.3, no edema/pallor/NVD macula: personnel scheduler, DME vessels: wnl periphery: personnel scheduler, no RT/RD Dilated fundus exam OS: vitreous: clear optic nerve: 0.3, no edema/pallor/NVD macula: personnel scheduler, DME vessels: wnl periphery: personnel scheduler, no RT/RD OCT Interpretation: OD: ++DME--improved 134um prior improved 130um OS: ++DME--improved 118um, prior improved 67um A/P: 1. Moderate Nonproliferative Diabetic Retinopathy OU -DM2 -++DME OU on presentation OD: ++DME -Eylea OD 06/21/2023 -11 weeks; good at 8-11 weeks OS: ++DME -Eylea 06/25/24 -8 weeks -An examination for this condition was completed which is unrelated to the procedure that was performed today. -recommend HgbA1C <7, BP and lipid control. 2. Pseudophakia OU -stable, Dr. Rosario Plan: F/u 1-2 weeks for Eylea only OS; also f/u in 4-6 weeks OCT OU Manuel Jenkins DO CC: Acacia Dela Cruz, OD CC: PCP: LISA Valdez TIMEOUT PROCEDURE: correct patient identity-YES correct procedure and consent-YES verified side and site-YES correct patient position-YES all necessary equipment/prior studies present-YES reviewed special requirements of this patient-YES PROCEDURE: Intravitreal injection of Eylea (aflibercept) 2mg OD INFORMED CONSENT: Risks, benefits and alternatives have been discussed with the patient. Risks include, but are not limited to: retinal tears, detachments, hemorrhage, glaucoma, infection, cataracts, need for more procedures and the potential risk of arterial thromboembolic events following use of intravitreal VEGF inhibitors defined as nonfatal stroke, nonfatal myocardial infarction or vascular . Patient is aware of these risks and consents to the procedure. DESCRIPTION OF PROCEDURE: The procedure site was confirmed. Topical proparacaine was applied to the surface of the eye after which subconjunctival anesthetic was administered. The area was prepped in the standard aseptic manner with 5% Betadine solution. An eyelid speculum was placed and 2mg (0.05 ml) of Eylea was injected 3.75 mm posterior to the limbus into the midvitreous cavity with a 30 gauge short needle. The eye speculum was removed, Betadine was flushed from the eye and optic nerve perfusion was insured. The patient tolerated the procedure without difficulty and was given followup instructions and instructed to use ophthalmic ointment 3x/day as needed. Manuel Jenkins DO, performed the procedure in its entirety. documented in this encounter Nursing Notes * Kathie Miles TECH - 10/29/2023 3:17 PM EDT Elida Mei to receive third Eylea 2mg Injection of the Right eye. Correct eye confirmed with patient and marked by Manuel Jenkins DO Eylea 2mg lot # [id number] Exp. Date: 09/2024 * Kathie Miles TECH - 10/29/2023 2:56 PM EDT Elida Mei is a 73 year old year old female who presents for Mod. NPDR OU. Last Office Visit: 09/04/2023 (in office), Visit date not found (telemedicine) Patient currently states no change in vision. Are you diabetic? Yes. Do you check your blood sugars daily? YES. Fasting BS this mornin mg/dl. Last Hemoglobin A1C: 8. something Do you drive? yes OCT image(s) of both eyes acquired and filed/scanned into chart. 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 2 diabetes mellitus (HCC) Ordered: 10/29/2023 Health Maintenance Due Date Last Done Comments Cologuard 1994 Fecal Occult Blood Test 1994 Sigmoidoscopy 1994 Zoster Vaccines (1 of 2) 09/17/1999 Mammogram 01/07/2018 01/07/2017, /0 07/2015, 07/07/2014, Additional history exists HbA1c 08/05/2018 02/04/2018, 10/07, 10/18/2017, Additional history exists Albumin/Creatinine Ratio 10/18/2018 018, 06/01/2016, 06/14/2014, Additional history exists Depression Monitoring 02/04/2019 02/04/2018 Diabetic Foot Exam 02/04/2019 02/04/2018, 1 05/29/2016, 06/01/2016, Additional history exists DTaP,Tdap,and Td Vaccines (2 - Td or Tdap) 11/01/2019 10/31/2009 Colonoscopy 01/01/2021 01/01/2018, 12/08, 07/03/2012, Additional history exists Colorectal Cancer Screening 01/01/2021 Diabetic Eye Exam 03/12/2021 03/12/2020, 06/30/2012 DXA Scan 10/29/2021 10/29/2014 Lipid Panel 10/18/2022 10/18/2017, 05/10, 06/14/2014, Additional history exists COVID-19 Vaccine ( season) 2022 01/31/2022, 03/09/2021, 08/10/2020, Additional history exists Influenza Vaccine (FLU shot) (#1) 2023 12/21/2020, 02/04/2018 GFR 01/31/2024 01/30/2023, 04/08, 04/17/2022, Additional history exists Pneumococcal Vaccine: 65+ Years Completed 03/20/2023, 02/04/2018, 01/05/2018, Additional history exists HPV (Gardasil) Vaccine Aged Out No lo nger eligible based on patient's age to complete this topic Hepatitis B Vaccine Aged Out No longe r eligible based on patient's age to complete this topic MENINGOCOCCAL (MENACTRA/MENVEO) Aged Out No longer eligible based on patient's age to complete this topic documented as of this encounter Medical Devices Not on filedocumented as of this encounter Visit Diagnoses Diagnosis 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 with type 2 diabetes mellitus (HCC)- Primary documented in this encounter Administered Medications Active Administered Medications - up to 3 most recent administrations Medication Order MAR Action Action Date Dose Rate Site Aflibercept (Eylea) intraviteal prefilled syringe 2 mg 2 mg, Intravitreal, PRN Other, Starting on Sat06/21/23 at 1027, Until 06/20/24 at 1026, For 365 days Given 10/29/2023 3:18 PM EDT 2 mg Eye Right Given 09/04/2023 2:11 PM EDT 2 mg Ey e Left Given 08/15/2023 10:08 AM EDT 2 mg E ye Right ROPivacaine (Naropin) inj 1.5 mg 1.5 mg, Injection, PRN Other, Starting on Sat06/21/23 at 1027, Until 06/20/24 at 1026, For 365 days Given 10/29/2023 3:18 PM EDT 1.5 mg Eye R ight Given 09/04/2023 2:11 PM EDT 1.5 mg Ey e Left Given 08/15/2023 10:08 AM EDT 1.5 mg E ye Right documented in this encounter Care Teams Explosion Welder Relationship Specialty Start Date End Date Ramirez Villela CRNP [address] [facility] [address] [place] [address] PCP - General Nurse Practitioner 11/07/21 documented as of this encounter
--- OUTSIDE RECORDS SUMMARY | 2023-11-05 23:58 | External Medical Summary | Summary of Care ---
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 Procedures [place] AFLIBERCEPT INJECTION [place] INTRAVITREAL NJX PHARMACOLOGIC AGT SPX Manuel Jenkins DO [address] [place] [address] Referral ID Status Reason Start Date Expiration Date V isits Requested Visits Authorized [id number] Authorized Precert 06/21/2023 04/07/[phone] Encounter Details Date Type Department Care Team (Late st Contact Info) Description 10/29/2023 2:45 PM EDT Office Visit [facility] [address] [place] [address] Manuel Jenkins DO [address] [place] [address] Severe nonproliferative diabetic retinopathy of both eyes [...] Active venlafaxine XR (EFFEXOR XR) 75 MG [id number]:Mo derate episode of recurrent major depressive disorder [...] - 10/29/2023 2:45 PM EDT [facility] [place] Nursing notes reviewed. [...] clear optic nerve: 0.3, no edema/pallor/NVD macula: lapel stitcher, DME vessels: wnl periphery: lapel stitcher, no RT/RD Dilated fundus exam OS: vitreous: clear optic nerve: 0.3, no edema/pallor/NVD macula: lapel stitcher, DME vessels: wnl periphery: lapel stitcher, no RT/RD OCT Interpretation: OD: ++DME--improved 134um [...] Manuel Jenkins DO Eylea 2mg lot # [id number] Exp. Date: 09/2024 * Kathie Miles TECH [...] Right documented in this encounter Care Teams Rip Machine Operator Relationship Specialty Start Date End Date Ramirez Villela CRNP [address] [facility] [address] [place] [address] PCP - General Nurse Practitioner 11/07/21 documented as of this encounter
[2023-11-06 08:24] LABS: BUN Creatinine Ratio 32.5 (10-20); Creatinine Clr Calc Pharmacy 24.3 ml/min; Est GFR (African American) 27.8 ml/min; Potassium 4.6 mmol/L (3.5-5.1)
[2023-11-06] MEDS: LANTUS PER UNIT CHARGE SQ SCH (09:28)
[2023-11-06] MEDS: MAGNESIUM OXIDE 400 MG TAB PO SCH (09:28)
[2023-11-06] MEDS: PANTOprazole 40 MG TAB PO SCH (09:29)
[2023-11-06] MEDS: VENLAFAXINE HCL XR 150 MG CAPXR PO SCH (09:29)
[2023-11-06] MEDS: ASPIRIN 81 MG ECTAB PO SCH (09:29)
[2023-11-06] MEDS: methIMAzole 5 MG TABLET PO SCH (09:29)
--- NOTE | 2023-11-06 12:39 | Communication Note ---
Date of Service: November 06, 2023 By CMS guidelines, a determination that the admission or continued stay is not medically necessary has been made by a member of the UR committee and a phys ician for this hospital stay, therefore a Code 44 will be completed and the Inpatient admission will be changed to outpatient.
--- NOTE | 2023-11-06 13:01 | Discharge Summary ---
Date of Service November 06, 2023 Admission HPI Per Admitting Provider 77 yo female PMHx CKD-IV, CHF, anemia, HTN, T2DM, GERD, hyperthyroidism, anxiety, and depression admitted for dizziness on standing x2 weeks found to be hyperkalemic. States that she becomes lightheaded and or has sensation of room spinning. when she stands and that this has never happened to her before. She describes presyncopal symptoms, denies syncope. Symptoms resolve when she sits down. Has a history of orthostasis that is noted in her hospital discharge follow up after her last admission. States that she is eating and drinking normally. Denies CP, SOB, N/V/D, abdominal pain or UTI symptoms. ED course: Head CT and CXR negative for acute process EKG normal K 5.8 on presentation. Received insulin, Veltassa, albuterol, calcium gluconate Creatinine elevated to 2.5 (baseline appears ~2.3) s/p 1L NSS bolus Admission Exam Per Admitting Provider Constitutional: chronically ill appearing, no acute distress HEENT: NCAT, no conjunctival injection CV: regular rhythm, no murmur appreciated, extremities well-perfused, no LE edema Resp: CTABL, no wheezes/rales/rhonchi appreciated, no increased work of breathing GI: soft, nondistended, nontender MSK: no gross deformities appreciated Skin: warm, dry, no rash appreciated Neuro: alert, oriented, no focal neurologic deficit appreciated Principal Diagnosis Orthostasis, dehydration Discharge Exam Constitutional WD/WN, vitals as above Respiratory normal respiratory effort, lungs clear to auscultation Cardiovascular RRR, no murmur, no edema Skin no rashes, warm and dry Neurologic negative Romberg [facility] A+Ox3, euthymic affect Discharge Data Allergies Allergy/AdvReac Type Severity Reaction Status Date / Time No Known Allergies Allergy Verified 11/05/23 19:56 Consultations 11/05/23 19:45 ED Decision to Admit Stat Ordered Studies 11/05/23 17:46 CT head/brain wo con Stat Hospital Course (1) Dizziness on standing: (2) Hyperkalemia: (3) Diabetes mellitus type 2, uncontrolled: (4) GERD without esophagitis: (5) Hyperthyroidism: (6) Chronic kidney disease, stage IV (severe): (7) Major depressive disorder, recurrent, in partial remission: (8) Anemia: (9) Anxiety: (10) Hypertension: (11) Diastolic CHF: Plan 77 yo female PMHx CKD-IV, CHF, anemia, HTN, T2DM, GERD, hyperthyroidism, anxiety, and depression admitted for dizziness on standing x2 weeks, found to be hyperkalemic: #Dizziness on standing Dehydration vs orthostatic hypotension UA negative for infection Afebrile, VSS CXR, head CT negative for acute process Recommend increasing PO fluid intake, discussed target goal of 60+oz of fluid daily. #Hyperkalemia K+ 5.8 on admission - s/p calcium gluconate, insulin, albuterol, Veltassa Potassium 4.6 on AM recheck Order placed for repeat BMP in 1 week #KEEGAN on CKD-IV Cr 2.50 on admission, AM recheck 2.0 following fluid resuscitation Order placed for repeat BMP in 1 week. Total Time Total Time Spent Total Time Spent (In Minutes): <30 Discharge Plan Discharge Items Patient Disposition: Home - Self-Care Reason For Visit: PRESYNCOPE, HYPERKALEMIA Discharge Diagnosis: Orthostasis, dehydration, hyperkalemia Activity: Resume your previous activity Non-emergency contact: Primary Care Provider Call non-emergency contact if: you have any medication questions and your symptoms worsen Follow-up/Referrals: Ramirez Villela CRNP [Primary Care Provider] - Diet: Carb Consistent or DM2 Ambulatory Orders: Basic Metabolic Panel (Routine) Timeframe: 1 Week Location: Determined by Patient Ordered By: Duane Ramon Attending Provider Instructions: You were admitted to the hospital due to dizziness on standing. The lab and imaging work up that was done did not show anything that would necessarily explain these findings. Most likely, this is related to dehydration - this may be what caused the increase in your potassium level and a slight bump in your creatinine (a marker of kidney function). Moving forward, we recommend aiming to consume at least 60 ounces of fluid daily, NOT including coffee or sugar- sweetened beverages. We will also place an order for you to have your labs checked - please have your blood drawn at the beginning of next week. This is to ensure that your potassium remains in the normal range and that your creatinine is not continuing to rise. Pending Studies at Discharge: No Stand-Alone Forms: My [place] [employer], Smoking Cessation Medications and DC Order Prescriptions: Continued (DME) Accu-Chek Guide test strips Strip See Rx Instructions .Route Qty: 100 5RF Rx Instructions: Test blood sugar TID (DME) FreeStyle Darek 14 Day Sensor Kit See Rx Instructions .Route Qty: 2 5RF Rx Instructions: E11.9 Please bill Medicare Part B / 1 SENSOR EVERY 14 DAYS methimazole 10 mg tablet 5 mg PO QAM Qty: 90 1RF lisinopril 40 mg tablet 40 mg PO DAILY Qty: 90 3RF Hold Instructions: Resume on 09/04/23. Hold until you hear from your doctor about your blood work results labetalol 200 mg tablet 200 mg PO BID Qty: 60 3RF pantoprazole 40 mg tablet,delayed release (DR/EC) 40 mg PO QAM Qty: 90 1RF calcitriol 0.25 mcg capsule 0.25 mcg PO 3XWK Qty: 36 3RF Rx Instructions: Saturday, Saturday, Saturday in the morning buspirone 15 mg tablet 15 mg PO BID Qty: 60 3RF venlafaxine [Effexor XR] 150 mg capsule,extended release 24hr 150 mg PO QAM Qty: 90 1RF magnesium oxide 400 mg (241.3 mg magnesium) tablet 400 mg PO DAILY Qty: 30 1RF (DME) lancets [Accu-Chek Softclix Lancets] Misc See Rx Instructions .Route Qty: 200 3RF Rx Instructions: As directed; BS TID (DME) blood-glucose meter [Accu-Chek Guide Glucose Meter] Misc See Rx Instructions .Route Qty: 1 0RF Rx Instructions: As directed; BS TID (DME) Incentive Spirometer Misc See Rx Instructions .Route Qty: 1 0RF Rx Instructions: As directed Jardiance 10 mg tablet 10 mg PO DAILY Qty: 90 3RF amlodipine 5 mg tablet 5 mg PO HS Qty: 90 3RF Procrit 40,000 unit/mL solution 40,000 unit subcut .Qmonth 30 Days Qty: 4 0RF Rx Instructions: hold for Hgb 11 or greater. insulin glargine [Lantus U-100 Insulin] 100 unit/mL solution 46 unit subcut QAM Rx Instructions: Take 46 units (0.5ml) once daily in the morning acetaminophen 500 mg Tablet 1,000 mg PO Q6H PRN (Reason: Pain) aspirin 81 mg Tablet,Delayed Release (Dr/Ec) 81 mg PO QAM Qty: 0 0RF Rx Instructions: buy over the counter, for stroke prevention ascorbic acid (vitamin C) [C-1000] 1,000 mg tablet 1,000 mg PO QAM diclofenac sodium [Voltaren Arthritis Pain] 1 % Gel 2 g EXT QID PRN (Reason: right knee pain) Qty: 100 0RF Rx Instructions: Please give tube from hospital rosuvastatin 20 mg tablet 20 mg PO QAM Discharge Orders: Discharge Order (Routine); Ordered 11/06/23 Ordered By: Duane Shearer Admission Data Admit Date/Time: 11/05/23 20:37 Attending Provider: Raghav Cooper Admit Provider: Ramon Boss Primary Care Provider: Ramirez iVllela Other Providers: Bryan Garcia Other Interventions: Discharge Summary Assessment (RN) Last Done: 11/06/23 14:26 Supervising Physician Co-Signing Physician Notes I personally examined the patient and verified all alfaro points of history and exam, discussed case, and agree with decision making with Dr Shearer feeling better feels up to going home. does not drink much as far as fluids vitals noted nad heent nc at mmm breathing unlabored no accessory muscles good effort morbid obesity w BMI 40.5 noted labs noted orthostasis - likely dehydration - poor po intake + hot weather KEEGAN/hyperkalemia - from above + home meds- resolved safe/stable for home, discussed PO fluid intake. outpt f/u. labs as outpt otherwise as above Resident Activity Tracking Resident Involvement: Resident Care Provided Care Provided: Adult Hospital Medicine
--- NOTE | 2023-11-06 17:31 | Billing Data ---
Date of Service November 06, 2023 Coding Level of Care Code 39625 IN/OBS DISCH 30 MIN/LESS
[2023-11-06] MEDS ORDERED: amLODIPine BESYLATE 5 MG TAB PO SCH (21:00)
--- NOTE | 2023-11-06 21:10 | Billing Data ---
Date of Service November 06, 2023 Coding Level of Care Code 13285 INT INP/OBS CARE
--- NOTE | 2023-11-07 06:51 | Electrocardiogram Report ---
Test Reason : Blood Pressure : / mmHG Vent. Rate : 056 BPM Atrial Rate : 056 BPM P-R Int : 160 ms QRS Dur : 086 ms QT Int : 416 ms P-R-T Axes : 039 001 091 degrees QTc Int : 401 ms Sinus bradycardia Cannot rule out Anterior infarct , age undetermined Abnormal ECG When compared with ECG of 27-AUG-2023 16:27, No significant change was found Confirmed by Efrain Salazar ([id number]) on 11/07/2023 6:51:02 AM Referred By: REFERRED SELF Confirmed By:Efrain Salazar
--- NOTE | 2023-11-08 18:18 | Electrocardiogram Report ---
Test Reason : Blood Pressure : / mmHG Vent. Rate : 059 BPM Atrial Rate : 059 BPM P-R Int : 164 ms QRS Dur : 084 ms QT Int : 418 ms P-R-T Axes : 072 019 084 degrees QTc Int : 413 ms Sinus bradycardia Nonspecific ST and T wave abnormality When compared with ECG of 05-NOV-2023 17:48, No significant change was found Confirmed by Efrain Salazar ([id number]) on 11/08/2023 6:18:10 PM Referred By: REFERRED SELF Confirmed By:Efrain Salazar
== END 2023-11-06 14:26 | disposition home or self-care (01) ==
LOC: ED 17:28 → SUATTDRO 20:37 → INTOOBSV 20:37 → EDINP 20:37

== ENCOUNTER 2024-05-19 13:33 | Inpatient (IN) ==
[2024-05-19 16:42] LABS: Adenovirus PCR Not Detected (NotDetected); Bordetella parapertussis PCR Not Detected (NotDetected); Bordetella pertussis PCR Not Detected (NotDetected); Chlamydia pneumoniae PCR Not Detected (NotDetected); Coronavirus 229E PCR Not Detected (NotDetected); Coronavirus CoV-2 (COVID19)PCR Not Detected (NotDetected); Coronavirus HKU1 PCR Not Detected (NotDetected); Coronavirus NL63 PCR Not Detected (NotDetected); Coronavirus OC43PCR Not Detected (NotDetected); Human Metapneumovirus PCR Not Detected (NotDetected); Influenza A PCR Not Detected (NotDetected); Influenza B PCR Not Detected (NotDetected); Mycoplasma pneumoniae PCR Not Detected (NotDetected); Parainfluenza Virus 1 PCR Not Detected (NotDetected); Parainfluenza Virus 2 PCR Not Detected (NotDetected); Parainfluenza Virus 3 PCR Not Detected (NotDetected); Parainfluenza Virus 4 PCR Not Detected (NotDetected); Respiratory Syncytial VirusPCR Not Detected (NotDetected); Rhinovirus/Enterovirus PCR Not Detected (NotDetected)
--- NOTE | 2024-05-19 16:42 | Emergency Department Note ---
Impression & Plan Elevated troponin, Fatigue, Leukocytosis, Cough, Chest congestion, Fever, Sore throat ED Provider Note CHIEF COMPLAINT: Cough, fatigue, sore throat, fever HISTORY OF PRESENTING ILLNESS: The patient is a 73-year-old female who presents to the emergency department with her daughter due to fatigue, sore throat, body aches, and fevers for 2 days. Patient denies chest pain, shortness of breath, abdominal pain, nausea, vomiting, constipation, diarrhea. Confirms using [id number] medications for symptom management. REVIEW OF SYSTEMS: See HPI for pertinent positives and pertinent negatives. ALLERGIES: NKDA MEDICATIONS: See below PAST MEDICAL HISTORY: See below PHYSICAL EXAM: VITALS: Vitals are noted on the nurse's note and reviewed by myself. Vital signs stable. GENERAL: 73-year-old female, sitting in a wheelchair, in no acute distress, nondiaphoretic, well-developed well-nourished. SKIN: Capillary refill less than 2 seconds. HEENT: Normocephalic. PERRLA. EOMI. Nares patent. Mucous membranes moist. Neck is supple without nuchal rigidity. Throat without erythema, tonsillar edema/exudates, uvula is midline. HEART: Regular rate and rhythm without murmurs gallops or rubs. LUNGS: Expiratory wheeze appreciated on auscultation of the left lung. The right lung is clear to auscultation without wheezing rhonchi or rales. No retractions or accessory muscle use. ABDOMEN: Positive bowel sounds x 4. Soft, nontender, without masses or organomegaly. No guarding or rebound tenderness. MUSCULOSKELETAL: No gross musculoskeletal defects. No pedal edema. NEURO: Patient was alert and oriented. No focal neurological deficits. DIFFERENTIAL DIAGNOSIS: Viral infection, influenza, COVID-19, bacterial infection, allergic rhinitis, sinusitis, pneumonia, pneumothorax, bronchitis, GERD, sepsis, cardiac cause, among others. ED COURSE AND MEDICAL DECISION MAKING: HISTORY FROM INDEPENDENT HISTORIAN: The patient herself and her daughter. MEDICATIONS GIVEN: Albuterol inhaler, denies the need for pain medication in the emergency department. MONITOR: Continuous electronic device monitor: Order was placed for continuous electronic device monitor. Patient was placed on the electronic device monitor and continuous pulse ox. Patient was noted to be in normal sinus rhythm at an initial rate of 79 bpm per my interpretation. EKG: EKG was interpreted by myself as junctional rhythm with occasional PVCs. This was a new finding when comparing to previous EKG from 11/06/2023. No sign of ST wave abnormality. INTERPRETATION OF LABS: I interpreted the labs with full lab results as below in the lab section of this note. Pertinent lab results discussed in the MDM section below. INTERPRETATION OF IMAGING: Imaging studies were interpreted by myself and read by radiology as per the imaging section of this note. Chest/right rib x-ray - heart and lung showed no acute disease. Right ribs show no visible fracture, dislocation, or destructive lesion. No pneumothorax or pleural effusion noted. ESCALATION OF CARE CONSIDERED: Escalation of care was considered due to the patient's past medical history and her presentation/physical exam today. Lab work results showing leukocytosis, anemia, and elevated troponin. Patient was admitted to the hospitalist team for further evaluation and monitoring. CONSULTATIONS: [facility] hospitalist - Dr. Velazquez The patient was presented to the [facility] hospitalist team and was evaluated by them for admission. The hospitalist team decided to admit the patient. MDM SUMMARY: The patient is a 73-year-old female who presents to the emergency department with her daughter due to fatigue, sore throat, body aches, and fevers for 2 days. Patient denies chest pain, shortness of breath abdominal pain, nausea, vomiting, constipation, diarrhea. Confirms using [id number] medications for symptom management. The patient was seen at a time of high volume and upon triage a upper respiratory BioFire swab was ordered. Upper respiratory BioFire resulted negative. On physical exam the patient states that she is just not feeling well and that her hands have felt shaky. Confirms wet cough. Her vitals are stable and she is afebrile. Pupils are round and reactive. Throat without erythema, tonsillar edema/exudates, uvula is midline. Chest auscultation reveals regular rate and rhythm without murmurs appreciated. Expiratory wheezes appreciated on auscultation of the left lung. The right lung is clear to auscultation. Patient had noticeable coughing and chest congestion on exam. The abdomen is soft and nontender. There was no guarding or rebound tenderness. The patient was alert and oriented and communicated well. Due to the patient's presentation and negative upper respiratory BioFire additional laboratory test and imaging was ordered. A chest x-ray and images of right rib cage were obtained because patient confirms falling a couple weeks ago and having moderate right-sided rib pain. Tenderness is appreciated upon palpation. CBC, CMP, troponin were ordered. Albuterol was given for the patient's wheezing. Leukocytosis 16.66. RBC lowered to 2.98. Hemoglobin hematocrit lower at 8.9/28.5. When comparing these levels to her previous these are within her limits but are slightly lowered. No significant electrolyte abnormalities. BUN elevated 36. Creatinine elevated 2.20. Troponin elevated at 103. When comparing this level to her previous this is significantly higher. Repeat troponin decreased to 88.2. Urinalysis resulted showing 3+ protein, 2+ glucose, trace blood. Patient was informed of all of her laboratory and imaging results. Chest x-ray and right rib x-ray series shows no cardiopulmonary abnormality. Right ribs without visualized fracture, dislocation, or destructive lesion. No pneumothorax or pleural effusion noted. The patient was informed that due to her leukocytosis, fevers, elevated troponin, and symptoms/physical exam that it would be best if she were evaluated by the hospitalist team for admission. She agrees to evaluation for admission. The patient was presented to the hospitalist team and they evaluated the patient themselves. The patient was admitted for overnight management and further evaluation in stable condition. DIAGNOSES: Elevated troponin, fatigue, leukocytosis, cough, chest congestion, fever, sore throat The chart was completed utilizing [employer] Speech voice recognition software. Grammatical errors, random word insertions, pronoun errors, and incomplete sentences are an occasional consequence of this system due to software limitations, ambient noise, and hardware issues. Any formal questions or concerns about the content, text, or information contained within the body of this dictation should be directly addressed to the provider for clarification. 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 Obesity Chronic low back pain Spinal stenosis, lumbar region with neurogenic claudication Acute hyperkalemia (Acute) Dizziness on standing Right knee pain Word finding difficulty Major depressive disorder, recurrent, in partial remission Headaches due 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 Anemia Morbid obesity with BMI of 40.0-44.9, adult Chronic kidney disease, stage IV (severe) Post concussive syndrome Weakness (Acute) TIA (transient ischemic attack) (Acute) Anxiety CKD (chronic kidney disease) stage 3, GFR 30-59 ml/min Diastolic CHF MCI (mild cognitive impairment) Early satiety Iron deficiency anemia Secondary hyperparathyroidism Acute kidney injury superimposed on CKD (Acute) Fatigue Recurrent UTI Ketonuria (Acute) Diabetic nephropathy associated with type 2 diabetes mellitus Left cataract Vitamin D deficiency Nephrotic syndrome GERD without esophagitis Arthritis Hypertension Diabetes mellitus type 2, uncontrolled IDDM Dyslipidemia HNP (herniated nucleus pulposus), lumbar Hyperthyroidism Medical History Vasovagal episode Melanoma of nose Major depressive disorder, recurrent severe without psychotic features Surgical History Status post trigger finger release History of repair of left rotator cuff History of repair of right rotator cuff History of colonoscopy History of melanoma excision History of tooth extraction History of bilateral cataract extraction S/P tonsillectomy S/P tubal ligation S/P cholecystectomy Family History Father Prostate cancer Diabetes Myocardial infarction Lung cancer Mother Diabetes Alzheimer disease Myocardial infarction Hypertension Brother COPD (chronic obstructive pulmonary disease) Other No family history of adverse response to anesthesia Denies family history of Ovarian cancer Breast cancer Colorectal cancer Social History Smoking Status: Never smoker Second Hand Exposure: No; Do You Dip or Chew Tobacco: No; Hx Alcohol Use: Yes Hx Substance Use: No Preferred Language: Romansh Communication Ability: Effective Communication Ability Comment: Reports difficulty reading now r/t dizziness Visual Impairment: No Limitations Hearing Ability: Normal Ict Sales Assistant Required: No Beliefs That Will Affect Care: None marital status: / Current Living Situation: Family Current Living Situation Comment: lives with daughter current occupational status: retired current occupation: retired - worked at [employer] Feels Safe at Home: Yes Safety Concerns: Feels Safe At This Time Childhood Exposure to Second-Hand Smoke: No Diet: regular caffeine: Yes (Soda x 10 cans per day.) during the past year weight has: remained stable Dental Care, Regularly: No Seatbelt Use: always Sunscreen Use: No Assistive Devices: Denture - Upper Allergies Allergies Allergy/AdvReac Type Severity Reaction Status Date / Time No Known Allergies Allergy Verified 12/31/23 10:40 Home Meds Home Medications Medication Instructions Recorded Confirmed acetaminophen 500 mg tablet 1,000 mg PO Q6H PRN Pain 06/19/21 05/19/24 ascorbic acid (vitamin C) 1,000 mg 1 g PO DAILY 11/26/23 05/19/24 tablet (Vitamin C) cholecalciferol (vitamin D3) 125 125 mcg PO DAILY 11/26/23 05/19/24 mcg (5,000 unit) capsule cyanocobalamin (vitamin B-12) 1,000 mcg PO DAILY 11/26/23 05/19/24 1,000 mcg tablet epoetin rosa 40,000 unit/mL 40,000 unit subcut MONTHLY 11/26/23 05/19/24 injection solution (Procrit) insulin glargine 100 unit/mL 36 unit subcut QAM 05/19/24 05/19/24 subcutaneous solution (Lantus U-100 Insulin) Previous Rx's Medication Instructions Recorded lancets (Accu-Chek Softclix #200 ea 04/27/22 Lancets) blood sugar diagnostic (Accu-Chek #100 ea 01/30/23 Guide test strips) blood-glucose meter (Accu-Chek #1 ea 02/13/23 Guide Glucose Meter) aspirin 81 mg tablet,delayed 81 mg PO QAM #0 tabs 03/20/23 release methimazole 10 mg tablet 5 mg (1/2 x 10 mg) PO QAM #90 tabs 05/13/23 Incentive Spirometer #1 ea 05/14/23 empagliflozin 10 mg tablet 10 mg PO DAILY #90 tabs 07/25/23 (Jardiance) blood-glucose sensor (FreeStyle #3 ea 11/28/23 Darek 3 Sensor device) amlodipine 10 mg tablet 10 mg PO HS #90 tabs 01/03/24 sodium zirconium cyclosilicate 10 10 g PO UD #11 ea 02/10/24 gram oral powder packet (Lokelma) lisinopril 10 mg tablet 10 mg PO DAILY #90 tabs 03/11/24 rosuvastatin 20 mg tablet 20 mg PO QAM #90 tabs 03/11/24 pantoprazole 40 mg tablet,delayed 40 mg PO QAM #90 tabs 03/13/24 release venlafaxine 150 mg 150 mg PO QAM #90 caps 03/19/24 capsule,extended release 24 hr (Effexor XR) calcitriol 0.25 mcg capsule 0.25 mcg PO 3XWK #36 caps 04/02/24 buspirone 15 mg tablet 15 mg PO BID #60 tabs 04/13/24 magnesium oxide 400 mg (241.3 mg 400 mg PO DAILY #30 tabs 04/13/24 magnesium) tablet labetalol 200 mg tablet 200 mg PO BID #90 tabs 04/16/24 albuterol sulfate 90 mcg/actuation 1 inh inhalation Q6H #8.5 grams 04/28/24 aerosol inhaler fluticasone propionate 50 1 spray intranasal DAILY #16 grams 04/28/24 mcg/actuation nasal spray,suspension Results & Data (ED) Vital Signs Vital Signs - 24 hr 05/19/24 13:52 05/19/24 18:00 05/19/24 19:08 Temperature 37.1 C Temperature Source Oral Pulse Rate 88 81 Pulse Rate [Right Finger] 92 H Pulse Rate from SpO2 Sensor Respiratory Rate 18 18 Respiratory Effort / Characteristics Non-Labored Spontaneous Respiratory Depth Normal Blood Pressure 164/69 H Blood Pressure [Right Arm] 183/68 H Blood Pressure Mean 100 Blood Pressure Mean [Right Arm] 106 Pulse Oximetry 95 94 Oxygen Delivery Method Room Air Room Air Sepsis Recent Fever Within 48 Hours Yes Sepsis New/Unexplained Change in Mental Status No Sepsis Action Taken by Nursing No Action Required 05/19/24 20:01 05/19/24 21:00 Temperature Temperature Source Pulse Rate 78 79 Pulse Rate [Right Finger] Pulse Rate from SpO2 Sensor 103 H Respiratory Rate 20 18 Respiratory Effort / Characteristics Respiratory Depth Blood Pressure 148/108 H 165/98 H Blood Pressure [Right Arm] Blood Pressure Mean 128 120 Blood Pressure Mean [Right Arm] Pulse Oximetry 95 96 Oxygen Delivery Method Sepsis Recent Fever Within 48 Hours Sepsis New/Unexplained Change in Mental Status Sepsis Action Taken by Nursing Laboratory Data 05/19/24 17:55 05/19/24 17:55 Lab Results 05/19/24 05/19/24 05/19/24 Range/Units 13:54 17:55 19:46 WBC 16.66 H (4.8-10.8) K/ul RBC 2.98 L (4.20-5.40) M/uL Hgb 8.9 L (12.0-16.0) g/dl Hct 28.5 L (37.0-47.0) % MCV 95.6 (80.0-100.0) fL MCH 29.9 (25.0-34.0) pg MCHC 31.2 L (32.0-36.0) g/dL RDW Std Deviation 50.3 H (36.4-46.3) fL RDW Coeff of Emil 14.5 (11.5-14.5) % Plt Count 252 (130-400) K/uL MPV 11.3 (9.4-12.4) fL Immature Gran % (Auto) 0.6 % Neut % (Auto) 79.1 % Lymph % (Auto) 9.2 % Terrell % (Auto) 8.7 % Eos % (Auto) 1.9 % Baso % (Auto) 0.5 % Neut # (Auto) 13.17 H (1.40-6.50) K/uL Lymph # (Auto) 1.53 (1.20-3.40) K/uL Terrell # (Auto) 1.45 H (0.11-0.59) K/uL Eos # (Auto) 0.32 (0.00-0.50) K/uL Baso # (Auto) 0.09 (0.00-0.20) K/uL Immature Gran # (Auto) 0.10 (0.01-0.20) K/uL Sodium 135 L (136-145) mmol/L Potassium 4.6 (3.5-5.1) mmol/L Chloride 102 (98-107) mmol/L Carbon Dioxide 23 (21-32) mmol/L Anion Gap 10 (3-11) BUN 36 H (6-23) mg/dl Creatinine 2.20 H (0.6-1.2) mg/dl Est Cr Clr Drug Dosing Not Reportable eGFR 22.95 BUN/Creatinine Ratio 16.4 (10-20) Glucose 233 H (70-99(Fasting)) mg/dl Calcium 9.4 (8.6-10.3) mg/dl Total Bilirubin 0.5 (0.2-1.0) mg/dl AST 9 L (13-39) U/L ALT 10 (7-52) U/L Alkaline Phosphatase 75 (34-104) U/L Troponin I High Sens 103.0 H* 88.2 H* D (0-14) pg/ml Total Protein 7.6 (6.0-8.3) gm/dl Albumin 3.6 (3.4-5.0) gm/dl Globulin 4.0 (2.5-4.0) gm/dl Albumin/Globulin Ratio 0.9 (0.9-2) Adenovirus (PCR) Not Detected (NotDetected) B. pertussis DNA (PCR) Not Detected (NotDetected) B.parapertussis DNA PCR Not Detected (NotDetected) C. pneumoniae DNA (PCR) Not Detected (NotDetected) Coronavirus OC43 (PCR) Not Detected (NotDetected) Coronavirus HKU1 (PCR) Not Detected (NotDetected) Coronavirus 229E (PCR) Not Detected (NotDetected) SARS-CoV-2 (PCR) Not Detected (NotDetected) Coronavirus NL63 (PCR) Not Detected (NotDetected) Human Metapneumovir PCR Not Detected (NotDetected) Influenza Type A (PCR) Not Detected (NotDetected) Influenza Type B (PCR) Not Detected (NotDetected) M. pneumoniae (PCR) Not Detected (NotDetected) Parainfluenza 1 (PCR) Not Detected (NotDetected) Parainfluenza 2 (PCR) Not Detected (NotDetected) Parainfluenza 3 (PCR) Not Detected (NotDetected) Parainfluenza 4 (PCR) Not Detected (NotDetected) RSV (PCR) Not Detected (NotDetected) Entero/Rhino (PCR) Not Detected (NotDetected) Administered Medications Discontinued Medications Albuterol (Albuterol Hfa 8 Gm Inhaler) 2 puffs INH NOW ONE Stop: 05/19/24 17:37 Last Admin: 05/19/24 18:05 Dose: 2 puffs Documented By: [facility] Imaging Data Radiologist's Impression: Ribs w/Chest X-Ray 05/19/24 17:31 Exam: Regular. Chest x-ray Reason for exam: Cough with rib pain Previous: None FINDINGS: Heart and lungs show no acute disease. Right ribs show no visible fracture, dislocation or destructive lesion. No pneumothorax or pleural effusion is noted. IMPRESSION: Negative right ribs. Electronically signed by Ramses Rosas 05-19-2024 7:34 PM Discharge Plan Visit Data Chief Complaint: Flu Like Symptoms Stated Complaint: COUGH, FATIGUE, SORE THROAT, FEVER ED Provider: Praveena Leger ED Midlevel Provider: Ibeth William Discharge Problem: Elevated troponin, Fatigue, Leukocytosis, Cough, Chest congestion, Fever, Sore throat Patient Disposition: Admitted As Inpatient Condition: Good Discharge Instructions Interventions: ED Discharge Assessment Last Done: 05/19/24 22:35 Discharge Problem: Fatigue Qualifiers: Fatigue type: unspecified Qualified Code(s): R53.83 - Other fatigue Leukocytosis Qualifiers: Leukocytosis type: unspecified Qualified Code(s): D72.829 - Elevated white blood cell count, unspecified Cough Qualifiers: Cough type: acute Qualified Code(s): R05.1 - Acute cough Fever Qualifiers: Fever type: unspecified Qualified Code(s): R50.9 - Fever, unspecified
[2024-05-19] MEDS: ALBUTEROL HFA 8 GM INHALER INH ONE (18:05)
[2024-05-19 18:08] LABS: Basophils # (auto) 0.09 K/uL (0.00-0.20); Basophils % (auto) 0.5 %; Eosinophils # (auto) 0.32 K/uL (0.00-0.50); Eosinophils % (auto) 1.9 %; Hematocrit (blood only) 28.5 % (37.0-47.0); Hemoglobin 8.9 g/dl (12.0-16.0); Immature Granulocytes % (auto) 0.6 %; Lymphocytes # (auto) 1.53 K/uL (1.20-3.40); Lymphocytes % (auto) 9.2 %; Mean Corpuscular Hemoglobin 29.9 pg (25.0-34.0); Mean Corpuscular Hgb Conc 31.2 g/dL (32.0-36.0); Mean Corpuscular Volume 95.6 fL (80.0-100.0); Mean Platelet Volume 11.3 fL (9.4-12.4); Monocytes # (auto) 1.45 K/uL (0.11-0.59); Monocytes % (auto) 8.7 %; Neutrophils # (auto) 13.17 K/uL (1.40-6.50); Neutrophils % (auto) 79.1 %; Platelet Count 252 K/uL (130-400); RDW Coefficient of Variation 14.5 % (11.5-14.5); RDW Standard Deviation 50.3 fL (36.4-46.3); Red Blood Count 2.98 M/uL (4.20-5.40); White Blood Count 16.66 K/ul (4.8-10.8)
[2024-05-19 18:26] LABS: Alanine Aminotransferase 10 U/L (7-52); Albumin Globulin Ratio 0.9 (0.9-2); Albumin Level 3.6 gm/dl (3.4-5.0); Alkaline Phosphatase 75 U/L (34-104); Anion Gap 10 (3-11); Aspartate Aminotransferase 9 U/L (13-39); BUN Creatinine Ratio 16.4 (10-20); Bilirubin,Total 0.5 mg/dl (0.2-1.0); Blood Urea Nitrogen 36 mg/dl (6-23); Calcium 9.4 mg/dl (8.6-10.3); Carbon Dioxide 23 mmol/L (21-32); Chloride 102 mmol/L (98-107); Glucose 233 mg/dl (70-99(Fasting)); Potassium 4.6 mmol/L (3.5-5.1); Sodium 135 mmol/L (136-145); Total Protein 7.6 gm/dl (6.0-8.3)
--- NOTE | 2024-05-19 19:34 | XRay Report ---
Exam: Regular. Chest x-ray Reason for exam: Cough with rib pain Previous: None FINDINGS: Heart and lungs show no acute disease. Right ribs show no visible fracture, dislocation or destructive lesion. No pneumothorax or pleural effusion is noted. IMPRESSION: Negative right ribs. Electronically signed by Ramses Rosas 05-19-2024 7:34 PM
--- NOTE | 2024-05-19 21:27 | History & Physical Report ---
Date of Service May 19, 2024 Assessment & Plan (1) Elevated troponin: (2) Insulin dependent type 2 diabetes mellitus: (3) CKD (chronic kidney disease) stage 3, GFR 30-59 ml/min: (4) MCI (mild cognitive impairment): (5) Diabetes mellitus type 2, uncontrolled: Plan The patient is a 73-year-old female with a past medical history including insulin-dependent diabetes mellitus type 2, obesity, lumbar spinal stenosis with neurogenic claudication, word finding difficulty, major depressive disorder recurrent, morbid obesity, anxiety, CKD stage III, diastolic CHF, mild cognitive impairment, GERD without esophagitis, hypertension, dyslipidemia, and hyperthyroidism. She presents to the emergency department with generalized fatigue, shortness of breath and dyspnea on exertion. Significant laboratories included a troponin of 103, with follow-up 88.2, with no acute ST-T changes on EKG and a creatinine of 2.20, with base 2.06. [facility]. Of note, patient had a negative respiratory BioFire test and chest x-ray while in the ED. #Elevated troponin/hypertension/dyspnea on exertion/history of diastolic CHF- The patient will be admitted to telemetry for serial cardiac enzymes, serial E KG's, cardiac rhythm monitoring and a 2-D echocardiogram with Dopplers. Initial troponin 103, follow-up 88.2 Continue amlodipine, aspirin, labetalol Temporarily hold lisinopril Urinary tract infection- History of pansensitive E. coli Empiric ceftriaxone 2 g IV daily NSS at 80 mL/h x 1 L #Diabetes mellitus/uncontrolled- Glucose 233 on admission Hold Jardiance Patient Accu-Cheks with NovoLog SSI Continue glargine but reduced from 36-30 SQ every morning #CKD/nephrotic syndrome- Creatinine 2.20 on admission with base 2.06 Follow serially #Chronic medical conditions: Hyperlipidemia-continue rosuvastatin Major depression history-continue buspirone, venlafaxine Hyperthyroidism-continue methimazole History of hyperkalemia-4.6 on admission, hold Lokelma for now GERD-continue pantoprazole Allergic symptoms-temporarily hold nasal spray Anemia of chronic disease-on EPOetin alpha 40,000 units subcu monthly B12 deficiency-continue supplement History of Present Illness Chief Complaint: The patient presents to the emergency department with complaint of generalized fatigue, cough, body aches and intermittent fevers for the past 2 days. She denies any recent travels or sick exposures. Primary Care Provider: LISA Calle The patient is a 73-year-old female with a past medical history including insulin-dependent diabetes mellitus type 2, obesity, lumbar spinal stenosis with neurogenic claudication, word finding difficulty, major depressive disorder recurrent, morbid obesity, anxiety, CKD stage III, diastolic CHF, mild cognitive impairment, GERD without esophagitis, hypertension, dyslipidemia, and hyperthyroidism. She presents to the emergency department with generalized fatigue, shortness of breath and dyspnea on exertion. Significant laboratories included a troponin of 103, with follow-up 88.2. And a creatinine of 2.20, with base 2.06. [facility]. Of note, patient had a negative respiratory BioFire test and chest x-ray while in the ED Allergies Allergy/AdvReac Type Severity Reaction Status Date / Time No Known Allergies Allergy Verified 12/31/23 10:40 Home Medications Medication Instructions Recorded Confirmed Type acetaminophen 500 mg tablet 1,000 mg PO Q6H PRN Pain 06/19/21 05/19/24 History lancets (Accu-Chek Softclix #200 ea 04/27/22 05/19/24 Rx Lancets) blood sugar diagnostic (Accu-Chek #100 ea 01/30/23 05/19/24 Rx Guide test strips) blood-glucose meter (Accu-Chek #1 ea 02/13/23 05/19/24 Rx Guide Glucose Meter) aspirin 81 mg tablet,delayed 81 mg PO QAM #0 tabs 03/20/23 05/19/24 Rx release methimazole 10 mg tablet 5 mg (1/2 x 10 mg) PO QAM #90 tabs 05/13/23 05/19/24 Rx Incentive Spirometer #1 ea 05/14/23 05/19/24 Rx empagliflozin 10 mg tablet 10 mg PO DAILY #90 tabs 07/25/23 05/19/24 Rx (Jardiance) ascorbic acid (vitamin C) 1,000 mg 1 g PO DAILY 11/26/23 05/19/24 History tablet (Vitamin C) cholecalciferol (vitamin D3) 125 125 mcg PO DAILY 11/26/23 05/19/24 History mcg (5,000 unit) capsule cyanocobalamin (vitamin B-12) 1,000 mcg PO DAILY 11/26/23 05/19/24 History 1,000 mcg tablet epoetin rosa 40,000 unit/mL 40,000 unit subcut MONTHLY 11/26/23 05/19/24 History injection solution (Procrit) blood-glucose sensor (FreeStyle #3 ea 11/28/23 05/19/24 Rx Darek 3 Sensor device) amlodipine 10 mg tablet 10 mg PO HS #90 tabs 01/03/24 05/19/24 Rx sodium zirconium cyclosilicate 10 10 g PO UD #11 ea 02/10/24 05/19/24 Rx gram oral powder packet (Lokelma) lisinopril 10 mg tablet 10 mg PO DAILY #90 tabs 03/11/24 05/19/24 Rx rosuvastatin 20 mg tablet 20 mg PO QAM #90 tabs 03/11/24 05/19/24 Rx pantoprazole 40 mg tablet,delayed 40 mg PO QAM #90 tabs 03/13/24 05/19/24 Rx release venlafaxine 150 mg 150 mg PO QAM #90 caps 03/19/24 05/19/24 Rx capsule,extended release 24 hr (Effexor XR) calcitriol 0.25 mcg capsule 0.25 mcg PO 3XWK #36 caps 04/02/24 05/19/24 Rx buspirone 15 mg tablet 15 mg PO BID #60 tabs 04/13/24 05/19/24 Rx magnesium oxide 400 mg (241.3 mg 400 mg PO DAILY #30 tabs 04/13/24 05/19/24 Rx magnesium) tablet labetalol 200 mg tablet 200 mg PO BID #90 tabs 04/16/24 05/19/24 Rx albuterol sulfate 90 mcg/actuation 1 inh inhalation Q6H #8.5 grams 04/28/24 05/19/24 Rx aerosol inhaler fluticasone propionate 50 1 spray intranasal DAILY #16 grams 04/28/24 05/19/24 Rx mcg/actuation nasal spray,suspension insulin glargine 100 unit/mL 36 unit subcut QAM 05/19/24 05/19/24 History subcutaneous solution (Lantus U-100 Insulin) 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 Obesity Chronic low back pain Spinal stenosis, lumbar region with neurogenic claudication Acute hyperkalemia (Acute) Dizziness on standing Right knee pain Word finding difficulty Major depressive disorder, recurrent, in partial remission Headaches due 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 Anemia Morbid obesity with BMI of 40.0-44.9, adult Chronic kidney disease, stage IV (severe) Post concussive syndrome Weakness (Acute) TIA (transient ischemic attack) (Acute) Anxiety CKD (chronic kidney disease) stage 3, GFR 30-59 ml/min Diastolic CHF MCI (mild cognitive impairment) Early satiety Iron deficiency anemia Secondary hyperparathyroidism Acute kidney injury superimposed on CKD (Acute) Fatigue Recurrent UTI Ketonuria (Acute) Diabetic nephropathy associated with type 2 diabetes mellitus Left cataract Vitamin D deficiency Nephrotic syndrome GERD without esophagitis Arthritis Hypertension Diabetes mellitus type 2, uncontrolled IDDM Dyslipidemia HNP (herniated nucleus pulposus), lumbar Hyperthyroidism Medical History Vasovagal episode Melanoma of nose Major depressive disorder, recurrent severe without psychotic features Surgical History Status post trigger finger release History of repair of left rotator cuff History of repair of right rotator cuff History of colonoscopy History of melanoma excision History of tooth extraction History of bilateral cataract extraction S/P tonsillectomy S/P tubal ligation S/P cholecystectomy Family History Father Prostate cancer Diabetes Myocardial infarction Lung cancer Mother Diabetes Alzheimer disease Myocardial infarction Hypertension Brother COPD (chronic obstructive pulmonary disease) Other No family history of adverse response to anesthesia Denies family history of Ovarian cancer Breast cancer Colorectal cancer Social History Smoking Status: Never smoker Second Hand Exposure: No; Do You Dip or Chew Tobacco: No; Hx Alcohol Use: Yes Hx Substance Use: No Preferred Language: Zambian Communication Ability: Effective Communication Ability Comment: Reports difficulty reading now r/t dizziness Visual Impairment: No Limitations Hearing Ability: Normal Mandrel Puller Required: No Beliefs That Will Affect Care: None marital status: / Current Living Situation: Family Current Living Situation Comment: lives with daughter current occupational status: retired current occupation: retired - worked at [employer] and [employer] Feels Safe at Home: Yes Safety Concerns: Feels Safe At This Time Childhood Exposure to Second-Hand Smoke: No Diet: regular caffeine: Yes (Soda x 10 cans per day.) during the past year weight has: remained stable Dental Care, Regularly: No Seatbelt Use: always Sunscreen Use: No Assistive Devices: Denture - Upper Review of Systems Review of Systems: The patient denies chest pain, palpitations, lower extremity swelling, chills, sweats, weight change, fatigue, nausea, vomiting, diarrhea , constipation, abdominal pain, pelvic pain, blood in urine or stool, dysuria, urinary frequency or urgency, lightheadedness, dizziness, headache, loss of consciousness, rash, abnormal bruising or bleeding, focal weakness, numbness or tingling in arms or legs, generalized arthralgias or myalgias, back or neck pain, or night sweats. The review of systems is otherwise negative other than for that already noted above, and at least 10 systems have been reviewed. Physical Exam Physical Exam: The patient is awake, alert and oriented 3, well developed and well nourished, normocephalic and atraumatic, lying in bed and in no acute distress. HEENT--PERRL, EOMI, mucous membranes and oropharynx dry. Neck--supple. No JVD. No bruits. Thyroid normal, trachea midline, no adenopathy. Heart--normal S1 and S2. No murmurs, rubs or gallops. Lungs--clear bilaterally, no respiratory distress, no accessory muscle use. Abdomen--normal bowel sounds and soft. Nontender. Nondistended Extremities--no cyanosis or clubbing. No edema. Dermatologic--normal skin turgor, normal color, no abnormal lymph nodes, no rash. Neurologic--cranial nerves II through XII grossly intact. Rheumatologic--normal range of motion. Psychiatric--normal affect. Results & Data Results & Data Vital Signs (Past 12 Hours) Vital Signs Temp Pulse Pulse Resp BP BP Pulse Ox 05/19/24 20:01 78 20 148/108 H 95 05/19/24 19:08 81 05/19/24 18:00 92 H 18 183/68 H 94 05/19/24 13:52 37.1 C 88 18 164/69 H 95 O2 Del Method 05/19/24 20:01 05/19/24 19:08 05/19/24 18:00 Room Air 05/19/24 13:52 Room Air Laboratory Results Laboratory Results WBC 16.66 K/ul (4.8-10.8) H 05/19/24 17:55 RBC 2.98 M/uL (4.20-5.40) L 05/19/24 17:55 Hgb 8.9 g/dl (12.0-16.0) L 05/19/24 17:55 Hct 28.5 % (37.0-47.0) L 05/19/24 17:55 MCV 95.6 fL (80.0-100.0) 05/19/24 17:55 MCH 29.9 pg (25.0-34.0) 05/19/24 17:55 MCHC 31.2 g/dL (32.0-36.0) L 05/19/24 17:55 RDW Std Deviation 50.3 fL (36.4-46.3) H 05/19/24 17:55 RDW Coeff of Emil 14.5 % (11.5-14.5) 05/19/24 17:55 Plt Count 252 K/uL (130-400) 05/19/24 17:55 MPV 11.3 fL (9.4-12.4) 05/19/24 17:55 Immature Gran % (Auto) 0.6 % 05/19/24 17:55 Neut % (Auto) 79.1 % 05/19/24 17:55 Lymph % (Auto) 9.2 % 05/19/24 17:55 [place] % (Auto) 8.7 % 05/19/24 17:55 Eos % (Auto) 1.9 % 05/19/24 17:55 Baso % (Auto) 0.5 % 05/19/24 17:55 Neut # (Auto) 13.17 K/uL (1.40-6.50) H 05/19/24 17:55 Lymph # (Auto) 1.53 K/uL (1.20-3.40) 05/19/24 17:55 [place] # (Auto) 1.45 K/uL (0.11-0.59) H 05/19/24 17:55 Eos # (Auto) 0.32 K/uL (0.00-0.50) 05/19/24 17:55 Baso # (Auto) 0.09 K/uL (0.00-0.20) 05/19/24 17:55 Immature Gran # (Auto) 0.10 K/uL (0.01-0.20) 05/19/24 17:55 Sodium 135 mmol/L (136-145) L 05/19/24 17:55 Potassium 4.6 mmol/L (3.5-5.1) 05/19/24 17:55 Chloride 102 mmol/L (98-107) 05/19/24 17:55 Carbon Dioxide 23 mmol/L (21-32) 05/19/24 17:55 Anion Gap 10 (3-11) 05/19/24 17:55 BUN 36 mg/dl (6-23) H 05/19/24 17:55 Creatinine 2.20 mg/dl (0.6-1.2) H 05/19/24 17:55 Est Cr Clr Drug Dosing Not Reportable 05/19/24 17:55 eGFR 22.95 05/19/24 17:55 BUN/Creatinine Ratio 16.4 (10-20) 05/19/24 17:55 Glucose 233 mg/dl (70-99(Fasting)) H 05/19/24 17:55 Calcium 9.4 mg/dl (8.6-10.3) 05/19/24 17:55 Total Bilirubin 0.5 mg/dl (0.2-1.0) 05/19/24 17:55 AST 9 U/L (13-39) L 05/19/24 17:55 ALT 10 U/L (7-52) 05/19/24 17:55 Alkaline Phosphatase 75 U/L (34-104) 05/19/24 17:55 Troponin I High Sens 88.2 pg/ml (0-14) H* D 05/19/24 19:46 Total Protein 7.6 gm/dl (6.0-8.3) 05/19/24 17:55 Albumin 3.6 gm/dl (3.4-5.0) 05/19/24 17:55 Globulin 4.0 gm/dl (2.5-4.0) 05/19/24 17:55 Albumin/Globulin Ratio 0.9 (0.9-2) 05/19/24 17:55 Urine Color Yellow 05/19/24 23:20 Urine Appearance Cloudy (Clear) A 05/19/24 23:20 Urine pH 5.5 (4.5-7.5) 05/19/24 23:20 Ur Specific [place] 1.019 (1.000-1.030) 05/19/24 23:20 Urine Protein 3+ (Negative) H 05/19/24 23:20 Urine Glucose (UA) 2+ (Negative) H 05/19/24 23:20 Urine Ketones Negative (Negative) 05/19/24 23:20 Urine Blood Trace (Negative) H 05/19/24 23:20 Urine Nitrite Negative (Negative) 05/19/24 23:20 Urine Bilirubin Negative (Negative) 05/19/24 23:20 Urine Urobilinogen Negative (Negative) 05/19/24 23:20 Ur Leukocyte Esterase 1+ (Negative) H 05/19/24 23:20 Urine WBC (Auto) >50 /hpf (0-5) H 05/19/24 23:20 Urine RBC (Auto) 0-2 /hpf (0-2) 05/19/24 23:20 U Hyaline Cast (Auto) 3-5 /lpf (0-2) H 05/19/24 23:20 U Epithel Cells (Auto) 0-2 /hpf (0-2) 05/19/24 23:20 Urine Bacteria (Auto) 4+ (None Seen) H 05/19/24 23:20 Adenovirus (PCR) Not Detected (NotDetected) 05/19/24 13:54 B. pertussis DNA (PCR) Not Detected (NotDetected) 05/19/24 13:54 B.parapertussis DNA PCR Not Detected (NotDetected) 05/19/24 13:54 C. pneumoniae DNA (PCR) Not Detected (NotDetected) 05/19/24 13:54 Coronavirus OC43 (PCR) Not Detected (NotDetected) 05/19/24 13:54 Coronavirus HKU1 (PCR) Not Detected (NotDetected) 05/19/24 13:54 Coronavirus 229E (PCR) Not Detected (NotDetected) 05/19/24 13:54 SARS-CoV-2 (PCR) Not Detected (NotDetected) 05/19/24 13:54 Coronavirus NL63 (PCR) Not Detected (NotDetected) 05/19/24 13:54 Human Metapneumovir PCR Not Detected (NotDetected) 05/19/24 13:54 Influenza Type A (PCR) Not Detected (NotDetected) 05/19/24 13:54 Influenza Type B (PCR) Not Detected (NotDetected) 05/19/24 13:54 M. pneumoniae (PCR) Not Detected (NotDetected) 05/19/24 13:54 Parainfluenza 1 (PCR) Not Detected (NotDetected) 05/19/24 13:54 Parainfluenza 2 (PCR) Not Detected (NotDetected) 05/19/24 13:54 Parainfluenza 3 (PCR) Not Detected (NotDetected) 05/19/24 13:54 Parainfluenza 4 (PCR) Not Detected (NotDetected) 05/19/24 13:54 RSV (PCR) Not Detected (NotDetected) 05/19/24 13:54 Entero/Rhino (PCR) Not Detected (NotDetected) 05/19/24 13:54 Impressions Ribs w/Chest X-Ray 05/19/24 17:31 Exam: Regular. Chest x-ray Reason for exam: Cough with rib pain Previous: None FINDINGS: Heart and lungs show no acute disease. Right ribs show no visible fracture, dislocation or destructive lesion. No pneumothorax or pleural effusion is noted. IMPRESSION: Negative right ribs. Electronically signed by Ramses Rosas 05-19-2024 7:34 PM Code Status & VTE Plan Code Status DNR/DNI VTE Prophylaxis Plan VTE Prophylaxis will be ordered: Yes PG Care Time/CCT Total # of Minutes Spent Total Time Spent with Patient: Total time spent is greater than 50% in coordination of care (as documented) at patient's floor/unit and/or counseling patient: Coding Level of Care Code 61093 INT INP/OBS CARE MIN Diagnoses Elevated troponin R79.89 Insulin dependent type 2 diabetes mellitus E11.9; Z79.4 CKD (chronic kidney disease) stage 3, GFR 30-59 ml/min N18.3 MCI (mild cognitive impairment) G31.84 Uncontrolled type 2 diabetes mellitus with hyperglycemia E11.65 Glycemic state: with hyperglycemia (5) Diabetes mellitus type 2, uncontrolled Glycemic state: with hyperglycemia Qualified Code(s): E11.65 - Type 2 diabetes mellitus with hyperglycemia
[2024-05-19] MEDS ORDERED: ONDANSETRON INJ 2 MG/ML 2 ML VIAL IV PRN (23:32)
[2024-05-19] MEDS ORDERED: ACETAMINOPHEN 325 MG TAB PO PRN (23:32)
[2024-05-19] MEDS ORDERED: CARBOHYDRATES FOR HYPOGLYCEMIA PO PRN (23:32)
[2024-05-19] MEDS ORDERED: DEXTROSE 50% 50 ML SYRINGE IV PRN (23:32)
[2024-05-19] MEDS ORDERED: GLUCOSE 40% GEL 15 GM TUBE PO PRN (23:32)
[2024-05-19] MEDS ORDERED: GLUCAGON FOR INJ 1 MG VIAL SQ PRN (23:32)
[2024-05-19] MEDS ORDERED: GLUCOSE 10 TAB/TUBE PO PRN (23:32)
[2024-05-19 23:59] LABS: Appearance Urine Cloudy (Clear); Bacteria Urine Automated 4+ (None Seen); Bilirubin Urine Negative (Negative); Blood Urine Trace (Negative); Color Urine Yellow; Epithelial Cell Urine Auto 0-2 /hpf (0-2); Glucose Urine UA 2+ (Negative); Ketones Urine Negative (Negative); Leukocyte Esterase Urine 1+ (Negative); Nitrite Urine Negative (Negative); Protein Urine 3+ (Negative); RBC Urine Automated 0-2 /hpf (0-2); Specific Gravity Urine 1.019 (1.000-1.030); Urobilinogen Urine Negative (Negative); WBC Urine Automated >50 /hpf (0-5); pH Urine 5.5 (4.5-7.5)
[2024-05-20] MEDS: SODIUM CHLORIDE 0.9% 1,000 ML IV SCH (05:25)
[2024-05-20] MEDS: cefTRIAXone SODIUM 2,000 MG/50 ML BAG IV SCH (05:26)
[2024-05-20 06:14] LABS: Albumin Globulin Ratio 0.9 (0.9-2); Albumin Level 3.2 gm/dl (3.4-5.0); BUN Creatinine Ratio 16.5 (10-20); Bilirubin,Total 0.5 mg/dl (0.2-1.0); Calcium 8.7 mg/dl (8.6-10.3); Creatinine Clr Calc Pharmacy 21.3 ml/min; Globulin 3.4 gm/dl (2.5-4.0); Potassium 4.2 mmol/L (3.5-5.1); Total Protein 6.6 gm/dl (6.0-8.3)
[2024-05-20 06:28] LABS: INR 1.1 (0.9-1.1); Partial Thromboplastin Ratio 0.9; Partial Thromboplastin Time 24 Seconds (21-31); Prothrombin Time 11.4 Seconds (9.0-12.0)
[2024-05-20 06:30] LABS: Thyroid Stimulating Hormone 1.665 uIu/ml (0.300-4.500)
[2024-05-20 06:32] LABS: Basophils # (auto) 0.09 K/uL (0.00-0.20); Basophils % (auto) 0.6 %; Eosinophils # (auto) 0.44 K/uL (0.00-0.50); Hematocrit (blood only) 23.3 % (37.0-47.0); Hemoglobin 7.6 g/dl (12.0-16.0); Immature Granulocytes # (auto) 0.09 K/uL (0.01-0.20); Immature Granulocytes % (auto) 0.6 %; Lymphocytes # (auto) 1.92 K/uL (1.20-3.40); Lymphocytes % (auto) 13.3 %; Mean Corpuscular Hemoglobin 30.6 pg (25.0-34.0); Mean Corpuscular Hgb Conc 32.6 g/dL (32.0-36.0); Mean Platelet Volume 11.6 fL (9.4-12.4); Monocytes # (auto) 1.47 K/uL (0.11-0.59); Monocytes % (auto) 10.1 %; Neutrophils # (auto) 10.48 K/uL (1.40-6.50); Neutrophils % (auto) 72.4 %; Platelet Count 235 K/uL (130-400); RDW Coefficient of Variation 14.3 % (11.5-14.5); RDW Standard Deviation 48.9 fL (36.4-46.3); Red Blood Count 2.48 M/uL (4.20-5.40); White Blood Count 14.49 K/ul (4.8-10.8)
[2024-05-20 07:08] LABS: RBC Morphology Unremarkable
[2024-05-20] MEDS: Patient's HEIGHT &/or WEIGHT Needed ONE (07:31)
--- NOTE | 2024-05-20 07:33 | Hospitalist Progress Note ---
Date of Service May 20, 2024 Assessment & Plan (1) Elevated troponin: (2) Insulin dependent type 2 diabetes mellitus: (3) CKD (chronic kidney disease) stage 3, GFR 30-59 ml/min: (4) MCI (mild cognitive impairment): (5) Diabetes mellitus type 2, uncontrolled: Plan The patient is a 73-year-old female with a past medical history including insulin-dependent diabetes mellitus type 2, obesity, lumbar spinal stenosis with neurogenic claudication, word finding difficulty, major depressive disorder recurrent, morbid obesity, anxiety, CKD stage III, diastolic CHF, mild cognitive impairment, GERD without esophagitis, hypertension, dyslipidemia, and hyperthyroidism. She presents to the emergency department with generalized fatigue, shortness of breath and dyspnea on exertion. Significant laboratories included a troponin of 103, with follow-up 88.2, with no acute ST-T changes on EKG and a creatinine of 2.20, with base 2.06. The patient is referred to [facility] for further evaluation and treatment. Of note, patient had a negative respiratory BioFire test and chest x-ray while in the ED. #Elevated troponin/hypertension/dyspnea on exertion/history of diastolic CHF- Echocardiogram dose not show RWMA and has preserved EF Initial troponin 103,-> 88.2->42, suspect demand ischemia Continue amlodipine, aspirin, labetalol Urinary tract infection-strong smell of urine abn UA History of pansensitive E. coli Empiric ceftriaxone 2 g IV daily Anemia of chronic disease-on EPOetin alpha 40,000 units subcu monthly, hgb usually in 8-10gm range, check iron studies denies melena, #Diabetes mellitus/uncontrolled- Glucose 233 on admission Hold Jardiance Patient Accu-Cheks with NovoLog SSI Continue glargine but reduced from 36-30 SQ every morning #CKD/nephrotic syndrome-Temporarily hold lisinopril Creatinine 2.20 on admission with base 2.06 Follow serially #Chronic medical conditions: Hyperlipidemia-continue rosuvastatin Major depression history-continue buspirone, venlafaxine Hyperthyroidism-continue methimazole History of hyperkalemia-4.6 on admission, hold Lokelma for now GERD-continue pantoprazole Allergic symptoms-temporarily hold nasal spray B12 deficiency-continue supplement Admission and Anticipated Discharge Date Admission Date: May 19, 2024 Subjective pt feels improved still about 60% of her normal health and strength does not endorse having dark bowel movements at home feels she is about due for colonoscopy no current abdominal pain Physical Exam Physical Exam: pale, no distress' strong odor of urine in room abd is soft, no focal areas of tenderness Results & Data Results & Data Vital Signs (Past 12 Hours) Vital Signs Temp Pulse Pulse Resp BP BP BP 05/20/24 07:26 05/20/24 07:01 81 05/20/24 03:11 98.2 F 90 18 133/62 05/19/24 23:41 98.1 F 63 17 163/83 H 05/19/24 23:40 05/19/24 23:40 98.1 F 78 20 163/83 H 05/19/24 22:00 81 21 167/60 H 05/19/24 21:00 79 18 165/98 H 05/19/24 20:01 78 20 148/108 H Pulse Ox O2 Del Method 05/20/24 07:26 Room Air 05/20/24 07:01 05/20/24 03:11 93 Room Air 05/19/24 23:41 94 Room Air 05/19/24 23:40 Room Air 05/19/24 23:40 94 Room Air 05/19/24 22:00 92 05/19/24 21:00 96 05/19/24 20:01 95 Laboratory Results review cbc, ordered repeat hgb and review, low but stable ordered iron for am review chemistry,not significant rise in BUN PG Care Time/CCT Total # of Minutes Spent Total Time Spent with Patient: Total time spent is greater than 50% in coordination of care (as documented) at patient's floor/unit and/or counseling patient: Coding Level of Care Code 20592 SUB INP/OBS CARE 3/50MIN Diagnoses Elevated troponin R79.89 Insulin dependent type 2 diabetes mellitus E11.9; Z79.4 CKD (chronic kidney disease) stage 3, GFR 30-59 ml/min N18.3 MCI (mild cognitive impairment) G31.84 Uncontrolled type 2 diabetes mellitus with hyperglycemia E11.65 Glycemic state: with hyperglycemia (5) Diabetes mellitus type 2, uncontrolled Glycemic state: with hyperglycemia Qualified Code(s): E11.65 - Type 2 diabetes mellitus with hyperglycemia
[2024-05-20] MEDS ORDERED: INFLUENZA VACC TS2024-25(65y+)/PF (IIV3) 0.5mL Syr IM ONE (08:00)
[2024-05-20] MEDS: VENLAFAXINE HCL XR 150 MG CAPXR PO SCH (08:43)
[2024-05-20] MEDS: LABETALOL HCL 200 MG TAB PO SCH (08:43)
[2024-05-20] MEDS: methIMAzole 5 MG TABLET PO SCH (08:43)
[2024-05-20] MEDS: PANTOprazole 40 MG TAB PO SCH (08:44)
[2024-05-20] MEDS: LANTUS PER UNIT CHARGE SQ SCH (08:44)
[2024-05-20] MEDS: ASPIRIN 81 MG ECTAB PO SCH (08:44)
[2024-05-20] MEDS: CALCITRIOL 0.25 MCG CAPSULE PO SCH (08:44)
[2024-05-20] MEDS: MAGNESIUM OXIDE 400 MG TAB PO SCH (08:44)
[2024-05-20] MEDS: busPIRone 15 MG TAB PO SCH (08:44)
[2024-05-20] MEDS: CHOLECALCIFEROL 125 MCG (5,000 UNITS) TAB PO SCH (08:44)
[2024-05-20] MEDS: CYANOCOBALAMIN (B-12) 500 MCG TABLET PO SCH (08:44)
[2024-05-20] MEDS: ASCORBIC ACID 500 MG TAB PO SCH (08:44)
[2024-05-20] MEDS: ROSUVASTATIN CALCIUM 20 MG TAB PO SCH (08:44)
[2024-05-20] MEDS: ALBUTEROL HFA 8 GM INHALER INH SCH (08:49)
[2024-05-20] MEDS: INSULIN ASPART PER UNIT CHARGE SC SCH (08:49)
--- NOTE | 2024-05-20 09:33 | XCELERA ---
[id number]
--- NOTE | 2024-05-20 12:47 | Electrocardiogram Report ---
Test Reason : Blood Pressure : */* mmHG Vent. Rate : 79 BPM Atrial Rate : * BPM P-R Int : * ms QRS Dur : 82 ms QT Int : 372 ms P-R-T Axes : * 48 29 degrees QTcB Int : 426 ms Normal sinus rhythm with frequent Premature atrial complexes Nonspecific T wave abnormality Abnormal ECG When compared with ECG of 06-Nov-2023 08:51, Premature atrial complexes now present Confirmed by Celio Hernandez ([id number]) on 05/20/2024 12:47:06 PM Referred By: REFERRED SELF Confirmed By: Celio Hernandez
--- NOTE | 2024-05-20 12:52 | Electrocardiogram Report ---
Test Reason : Blood Pressure : */* mmHG Vent. Rate : 84 BPM Atrial Rate : 107 BPM P-R Int : * ms QRS Dur : 78 ms QT Int : 356 ms P-R-T Axes : * 42 62 degrees QTcB Int : 420 ms Normal sinus rhythm with frequent Premature atrial complexes Nonspecific ST and T wave abnormality Abnormal ECG When compared with ECG of 19-May-2024 20:38, (unconfirmed) Nonspecific T wave abnormality, worse in Inferior leads Nonspecific T wave abnormality, improved in Lateral leads Confirmed by Celio Hernandez ([id number]) on 05/20/2024 12:52:38 PM Referred By: REFERRED SELF Confirmed By: Celio Hernandez
[2024-05-20 13:21] LABS: Estimated Average Glucose 154 mg/dl
[2024-05-20] MEDS: amLODIPine BESYLATE 5 MG TAB PO SCH (21:19)
[2024-05-21 06:47] LABS: Basophils # (auto) 0.08 K/uL (0.00-0.20); Basophils % (auto) 0.7 %; Eosinophils # (auto) 0.63 K/uL (0.00-0.50); Eosinophils % (auto) 5.4 %; Hematocrit (blood only) 23.4 % (37.0-47.0); Hemoglobin 7.3 g/dl (12.0-16.0); Immature Granulocytes # (auto) 0.06 K/uL (0.01-0.20); Immature Granulocytes % (auto) 0.5 %; Lymphocytes # (auto) 1.96 K/uL (1.20-3.40); Lymphocytes % (auto) 16.8 %; Mean Corpuscular Hemoglobin 29.8 pg (25.0-34.0); Mean Corpuscular Hgb Conc 31.2 g/dL (32.0-36.0); Mean Corpuscular Volume 95.5 fL (80.0-100.0); Mean Platelet Volume 11.5 fL (9.4-12.4); Monocytes # (auto) 1.74 K/uL (0.11-0.59); Monocytes % (auto) 14.9 %; Neutrophils # (auto) 7.18 K/uL (1.40-6.50); Neutrophils % (auto) 61.7 %; Platelet Count 248 K/uL (130-400); RDW Coefficient of Variation 14.6 % (11.5-14.5); RDW Standard Deviation 50.8 fL (36.4-46.3); Red Blood Count 2.45 M/uL (4.20-5.40); White Blood Count 11.65 K/ul (4.8-10.8)
[2024-05-21 07:16] LABS: RBC Morphology Unremarkable
[2024-05-21 07:19] LABS: Albumin Globulin Ratio 0.9 (0.9-2); Albumin Level 3.1 gm/dl (3.4-5.0); BUN Creatinine Ratio 16.5 (10-20); Bilirubin,Total 0.3 mg/dl (0.2-1.0); Calcium 8.5 mg/dl (8.6-10.3); Creatinine Clr Calc Pharmacy 18.1 ml/min; Globulin 3.5 gm/dl (2.5-4.0); Potassium 4.4 mmol/L (3.5-5.1); Total Protein 6.6 gm/dl (6.0-8.3)
[2024-05-21 07:26] LABS: Partial Thromboplastin Ratio 0.8; Partial Thromboplastin Time 22 Seconds (21-31)
[2024-05-21] MEDS: SODIUM ZIRCONIUM CYCLOSILICATE 10 GM PACKET PO SCH (08:36)
--- NOTE | 2024-05-21 09:55 | Hospitalist Progress Note ---
Date of Service May 21, 2024 Assessment & Plan (1) Elevated troponin: (2) Insulin dependent type 2 diabetes mellitus: (3) CKD (chronic kidney disease) stage 3, GFR 30-59 ml/min: (4) MCI (mild cognitive impairment): (5) Diabetes mellitus type 2, uncontrolled: (6) Iron deficiency anemia: Plan The patient is a 73-year-old female with a past medical history including insulin-dependent diabetes mellitus type 2, obesity, lumbar spinal stenosis with neurogenic claudication, word finding difficulty, major depressive disorder recurrent, morbid obesity, anxiety, CKD stage III, diastolic CHF, mild cognitive impairment, GERD without esophagitis, hypertension, dyslipidemia, and h yperthyroidism. She presents to the emergency department with generalized fatigue, shortness of breath and dyspnea on exertion. Significant laboratories included a troponin of 103, with follow-up 88.2, with no acute ST-T changes on EKG and a creatinine of 2.20, with base 2.06. [facility]. Of note, patient had a negative respiratory BioFire test and chest x-ray while in the ED. #Elevated troponin/hypertension/dyspnea on exertion/history of diastolic CHF- Echocardiogram dose not show RWMA and has preserved EF Initial troponin 103,-> 88.2->42, suspect demand ischemia Continue amlodipine, aspirin, labetalol Urinary tract infection -strong smell of urine abn UA History of pansensitive E. coli Empiric ceftriaxone 2 g IV daily Anemia of chronic disease and iron Def Anemia Hb 7.4, Low Iron and microcytic anemia Will give IV venofer 400mg chek stool for hemoccult blood -on EPOetin alpha 40,000 units subcu monthly, #Diabetes mellitus/uncontrolled- Glucose 233 on admission Hold Jardiance Patient Accu-Cheks with NovoLog SSI Continue glargine but reduced from 36-30 SQ every morning #CKD/nephrotic syndrome-Temporarily hold lisinopril Creatinine 2.20 on admission with base 2.06 Follow serially #Chronic medical conditions: Hyperlipidemia-continue rosuvastatin Major depression history-continue buspirone, venlafaxine Hyperthyroidism-continue methimazole History of hyperkalemia-4.6 on admission, hold Lokelma for now GERD-continue pantoprazole Allergic symptoms-temporarily hold nasal spray B12 deficiency-continue supplement Admission and Anticipated Discharge Date Admission Date: May 19, 2024 Subjective patient seen and examined, denies any new complaints Review of Systems Review of Systems: All systems reviewed are negative, apart from the ones contained in the history. Physical Exam Physical Exam: The patient is awake, alert and oriented 3, well developed and well nourished, normocephalic and atraumatic, lying in bed and in no acute distress. HEENT--PERRL, EOMI, mucous membranes and oropharynx mildly dry Neck--supple. No JVD. No bruits. Thyroid normal, trachea midline, no adenopathy. Heart--normal S1 and S2. No murmurs, rubs or gallops. Lungs--clear bilaterally, no respiratory distress, no accessory muscle use. Abdomen--normal bowel sounds and soft. Extremities--no cyanosis or clubbing. No edema. Dermatologic--normal skin turgor, normal color, no abnormal lymph nodes, no rash. Neurologic--cranial nerves II through XII grossly intact. Rheumatologic--normal range of motion. Psychiatric--normal affect. Results & Data Results & Data Vital Signs (Past 12 Hours) Vital Signs Temp Pulse Pulse Resp BP BP Pulse Ox 05/21/24 09:02 05/21/24 08:14 99.1 F 94 H 20 146/81 H 92 05/21/24 07:10 84 16 93 05/21/24 06:52 82 05/21/24 03:00 99.1 F 93 H 20 141/79 H 92 05/20/24 23:05 99.1 F 101 H 18 168/83 H 94 O2 Del Method 05/21/24 09:02 Room Air 05/21/24 08:14 Room Air 05/21/24 07:10 Room Air 05/21/24 06:52 05/21/24 03:00 Room Air 05/20/24 23:05 Room Air PG Care Time/CCT Total # of Minutes Spent Total Time Spent with Patient: Total time spent is greater than 50% in coordination of care (as documented) at patient's floor/unit and/or counseling patient: Coding Level of Care Code 03964 SUB INP/OBS CARE 2/35MIN Diagnoses Elevated troponin R79.89 Insulin dependent type 2 diabetes mellitus E11.9; Z79.4 CKD (chronic kidney disease) stage 3, GFR 30-59 ml/min N18.3 MCI (mild cognitive impairment) G31.84 Uncontrolled type 2 diabetes mellitus with hyperglycemia E11.65 Glycemic state: with hyperglycemia Iron deficiency anemia D50.9 Time Spent (min) 35 (5) Diabetes mellitus type 2, uncontrolled Glycemic state: with hyperglycemia Qualified Code(s): E11.65 - Type 2 diabetes mellitus with hyperglycemia
[2024-05-21] MEDS: IRON SUCROSE 400 MG in SODIUM CHLORIDE 0.9% 250 ML IV ONE (10:14)
--- NOTE | 2024-05-21 15:23 | Electrocardiogram Report ---
Test Reason : Blood Pressure : */* mmHG Vent. Rate : 80 BPM Atrial Rate : 80 BPM P-R Int : 136 ms QRS Dur : 84 ms QT Int : 370 ms P-R-T Axes : * 31 34 degrees QTcB Int : 426 ms Sinus rhythm with Premature atrial complexes in a pattern of bigeminy Otherwise normal ECG When compared with ECG of 20-May-2024 06:03, Sinus rhythm has replaced Junctional rhythm Nonspecific T wave abnormality, improved in Lateral leads Confirmed by Celio Hernandez ([id number]) on 05/21/2024 3:22:34 PM Referred By: REFERRED SELF Confirmed By: Celio Hernandez
[2024-05-22 07:47] LABS: Albumin Globulin Ratio 0.9 (0.9-2); Albumin Level 2.9 gm/dl (3.4-5.0); BUN Creatinine Ratio 17.1 (10-20); Bilirubin,Total 0.2 mg/dl (0.2-1.0); Calcium 8.3 mg/dl (8.6-10.3); Creatinine Clr Calc Pharmacy 15.9 ml/min; Globulin 3.3 gm/dl (2.5-4.0); Magnesium 1.9 mg/dl (1.7-2.4); Potassium 5.2 mmol/L (3.5-5.1); Total Protein 6.2 gm/dl (6.0-8.3)
[2024-05-22 07:51] LABS: Mean Corpuscular Hemoglobin 29.8 pg (25.0-34.0); Mean Corpuscular Hgb Conc 31.6 g/dL (32.0-36.0); Mean Corpuscular Volume 94.3 fL (80.0-100.0); Mean Platelet Volume 11.2 fL (9.4-12.4); Platelet Count 252 K/uL (130-400); RDW Coefficient of Variation 14.6 % (11.5-14.5); Red Blood Count 2.28 M/uL (4.20-5.40); White Blood Count 10.72 K/ul (4.8-10.8)
[2024-05-22 07:52] LABS: Hematocrit (blood only) 21.5 % (37.0-47.0); Hemoglobin 6.8 g/dl (12.0-16.0)
[2024-05-22] MEDS ORDERED: SODIUM CHLORIDE 0.9% 100 ML IV PRN (07:56)
[2024-05-22] MEDS ORDERED: SODIUM CHLORIDE 0.9% 50 ML IV PRN (07:56)
[2024-05-22 08:00] LABS: Partial Thromboplastin Time 27 Seconds (21-31); Prothrombin Time 11.2 Seconds (9.0-12.0)
[2024-05-22 08:03] LABS: Basophils # (auto) 0.06 K/uL (0.00-0.20); Basophils % (auto) 0.6 %; Eosinophils # (auto) 0.68 K/uL (0.00-0.50); Eosinophils % (auto) 6.3 %; Immature Granulocytes # (auto) 0.07 K/uL (0.01-0.20); Immature Granulocytes % (auto) 0.7 %; Lymphocytes # (auto) 1.32 K/uL (1.20-3.40); Lymphocytes % (auto) 12.3 %; Monocytes # (auto) 1.59 K/uL (0.11-0.59); Monocytes % (auto) 14.8 %; Neutrophils % (auto) 65.3 %; RBC Morphology Unremarkable
--- NOTE | 2024-05-22 10:04 | Hospitalist Progress Note ---
Date of Service May 22, 2024 Assessment & Plan (1) Elevated troponin: (2) Insulin dependent type 2 diabetes mellitus: (3) CKD (chronic kidney disease) stage 3, GFR 30-59 ml/min: (4) MCI (mild cognitive impairment): (5) Diabetes mellitus type 2, uncontrolled: (6) Iron deficiency anemia: Plan The patient is a 73-year-old female with a past medical history including insulin-dependent diabetes mellitus type 2, obesity, lumbar spinal stenosis with neurogenic claudication, word finding difficulty, major depressive disorder recurrent, morbid obesity, anxiety, CKD stage III, diastolic CHF, mild cognitive impairment, GERD without esophagitis, hypertension, dyslipidemia, and h yperthyroidism. She presents to the emergency department with generalized fatigue, shortness of breath and dyspnea on exertion. Significant laboratories included a troponin of 103, with follow-up 88.2, with no acute ST-T changes on EKG and a creatinine of 2.20, with base 2.06. [facility] and [facility]. Of note, patient had a negative respiratory BioFire test and chest x-ray while in the ED. #Elevated troponin/hypertension/dyspnea on exertion/history of diastolic CHF- Echocardiogram dose not show RWMA and has preserved EF Initial troponin 103,-> 88.2->42, suspect demand ischemia Continue amlodipine, aspirin, labetalol Urinary tract infection -strong smell of urine abn UA History of pansensitive E. coli Empiric ceftriaxone 2 g IV daily Anemia of chronic disease and iron Def Anemia Hb dropped to 6.8 overnight, from 7.4 Low Iron and microcytic anemia Will give IV venofer 400mg, also transfuse 1 unit of blood check stool for hemoccult blood -on EPOetin alpha 40,000 units subcu monthly, #Diabetes mellitus/uncontrolled- Glucose 233 on admission Hold Jardiance Patient Accu-Cheks with NovoLog SSI Continue glargine but reduced from 36-30 SQ every morning #CKD/nephrotic syndrome-Temporarily hold lisinopril Creatinine 2.20 on admission with base 2.06 Follow serially #Chronic medical conditions: Hyperlipidemia-continue rosuvastatin Major depression history-continue buspirone, venlafaxine Hyperthyroidism-continue methimazole History of hyperkalemia-4.6 on admission, hold Lokelma for now GERD-continue pantoprazole Allergic symptoms-temporarily hold nasal spray B12 deficiency-continue supplement Admission and Anticipated Discharge Date Admission Date: May 19, 2024 Subjective patient seen and examined, denies any new complaints Review of Systems Review of Systems: All systems reviewed are negative, apart from the ones contained in the history. Physical Exam Physical Exam: The patient is awake, alert and oriented 3, well developed and well nourished, normocephalic and atraumatic, lying in bed and in no acute distress. HEENT--PERRL, EOMI, mucous membranes and oropharynx mildly dry Neck--supple. No JVD. No bruits. Thyroid normal, trachea midline, no adenopathy. Heart--normal S1 and S2. No murmurs, rubs or gallops. Lungs--clear bilaterally, no respiratory distress, no accessory muscle use. Abdomen--normal bowel sounds and soft. Extremities--no cyanosis or clubbing. No edema. Dermatologic--normal skin turgor, normal color, no abnormal lymph nodes, no rash. Neurologic--cranial nerves II through XII grossly intact. Rheumatologic--normal range of motion. Psychiatric--normal affect. Results & Data Results & Data Vital Signs (Past 12 Hours) Vital Signs Temp Pulse Pulse Resp BP BP Pulse Ox 05/22/24 08:50 98.4 F 63 18 151/75 H 97 05/22/24 07:33 83 16 93 05/22/24 07:24 78 05/22/24 04:33 98.2 F 79 16 128/71 95 05/22/24 03:15 76 05/21/24 22:11 97.9 F 79 18 149/63 H 93 O2 Del Method 05/22/24 08:50 Room Air 05/22/24 07:33 Room Air 05/22/24 07:24 05/22/24 04:33 Room Air 05/22/24 03:15 05/21/24 22:11 Room Air PG Care Time/CCT Total # of Minutes Spent Total Time Spent with Patient: Total time spent is greater than 50% in coordination of care (as documented) at patient's floor/unit and/or counseling patient: Coding Level of Care Code 62175 SUB INP/OBS CARE 2/35MIN Diagnoses Elevated troponin R79.89 Insulin dependent type 2 diabetes mellitus E11.9; Z79.4 CKD (chronic kidney disease) stage 3, GFR 30-59 ml/min N18.3 MCI (mild cognitive impairment) G31.84 Uncontrolled type 2 diabetes mellitus with hyperglycemia E11.65 Glycemic state: with hyperglycemia Iron deficiency anemia D50.9 Time Spent (min) 35 (5) Diabetes mellitus type 2, uncontrolled Glycemic state: with hyperglycemia Qualified Code(s): E11.65 - Type 2 diabetes mellitus with hyperglycemia
[2024-05-22] MEDS: ALBUTEROL HFA 8 GM INHALER INH SCH (12:16)
[2024-05-22] MEDS: DOCUSATE SODIUM 100 MG CAP PO ONE (21:09)
[2024-05-23 06:23] LABS: Hematocrit (blood only) 24.8 % (37.0-47.0); Hemoglobin 7.9 g/dl (12.0-16.0); Mean Corpuscular Hemoglobin 30.4 pg (25.0-34.0); Mean Corpuscular Hgb Conc 31.9 g/dL (32.0-36.0); Mean Corpuscular Volume 95.4 fL (80.0-100.0); Mean Platelet Volume 11.1 fL (9.4-12.4); Platelet Count 276 K/uL (130-400); RDW Coefficient of Variation 14.6 % (11.5-14.5); RDW Standard Deviation 50.9 fL (36.4-46.3); White Blood Count 10.52 K/ul (4.8-10.8)
[2024-05-23 06:45] LABS: BUN Creatinine Ratio 17.2 (10-20); Calcium 8.5 mg/dl (8.6-10.3); Creatinine Clr Calc Pharmacy 13.8 ml/min
[2024-05-23] MEDS: POLYETHYLENE (MIRALAX) 17 GM PACK PO PRN (09:08)
--- NOTE | 2024-05-23 11:18 | Hospitalist Progress Note ---
Date of Service May 23, 2024 Assessment & Plan (1) Elevated troponin: (2) Insulin dependent type 2 diabetes mellitus: (3) CKD (chronic kidney disease) stage 3, GFR 30-59 ml/min: (4) MCI (mild cognitive impairment): (5) Diabetes mellitus type 2, uncontrolled: (6) Iron deficiency anemia: Plan The patient is a 73-year-old female with a past medical history including insulin-dependent diabetes mellitus type 2, obesity, lumbar spinal stenosis with neurogenic claudication, word finding difficulty, major depressive disorder recurrent, morbid obesity, anxiety, CKD stage III, diastolic CHF, mild cognitive impairment, GERD without esophagitis, hypertension, dyslipidemia, and h yperthyroidism. She presents to the emergency department with generalized fatigue, shortness of breath and dyspnea on exertion. Significant laboratories included a troponin of 103, with follow-up 88.2, with no acute ST-T changes on EKG and a creatinine of 2.20, with base 2.06. [facility]. Of note, patient had a negative respiratory BioFire test and chest x-ray while in the ED. #Elevated troponin/hypertension/dyspnea on exertion/history of diastolic CHF- Echocardiogram dose not show RWMA and has preserved EF Initial troponin 103,-> 88.2->42, suspect demand ischemia Continue amlodipine, aspirin, labetalol Urinary tract infection -Urinalysis suggestive of UTI History of pansensitive E. coli current cultures also growing e coli pansensitive Empiric ceftriaxone 2 g IV daily for a few days, will transition to PO Cipro 250mg BID Anemia of chronic disease and iron Def Anemia Hb 7.9, post transfusion of 1 unit of blood Also received a dose of venofer 400mg due to low Iron check stool for hemoccult blood -on EPOetin alpha 40,000 units subcu monthly, #Diabetes mellitus/uncontrolled- Glucose 233 on admission Hold Jardiance Patient Accu-Cheks with NovoLog SSI Continue glargine but reduced from 36-30 SQ every morning #CKD/nephrotic syndrome-Temporarily hold lisinopril Creatinine 2.20 on admission with base 2.06 Follow serially #Chronic medical conditions: Hyperlipidemia-continue rosuvastatin Major depression history-continue buspirone, venlafaxine Hyperthyroidism-continue methimazole History of hyperkalemia-4.6 on admission, hold Lokelma for now GERD-continue pantoprazole Allergic symptoms-temporarily hold nasal spray B12 deficiency-continue supplement Hopefully d/c home tomorrow Admission and Anticipated Discharge Date Admission Date: May 19, 2024 Subjective patient seen and examined, denies any new complaints Review of Systems Review of Systems: All systems reviewed are negative, apart from the ones contained in the history. Physical Exam Physical Exam: The patient is awake, alert and oriented 3, well developed and well nourished, normocephalic and atraumatic, lying in bed and in no acute distress. HEENT--PERRL, EOMI, mucous membranes and oropharynx mildly dry Neck--supple. No JVD. No bruits. Thyroid normal, trachea midline, no adenopathy. Heart--normal S1 and S2. No murmurs, rubs or gallops. Lungs--clear bilaterally, no respiratory distress, no accessory muscle use. Abdomen--normal bowel sounds and soft. Extremities--no cyanosis or clubbing. No edema. Dermatologic--normal skin turgor, normal color, no abnormal lymph nodes, no rash. Neurologic--cranial nerves II through XII grossly intact. Rheumatologic--normal range of motion. Psychiatric--normal affect. Results & Data Results & Data Vital Signs (Past 12 Hours) Vital Signs Temp Pulse Pulse Resp BP Pulse Ox O2 Del Method 05/23/24 10:32 97.9 F 75 18 146/78 H 95 Room Air 05/23/24 07:38 79 05/23/24 07:22 100 H 20 97 Room Air 05/23/24 07:05 98.4 F 77 16 142/72 H 94 Room Air 05/23/24 04:21 98.4 F 78 20 134/80 93 Room Air 05/23/24 02:07 76 05/23/24 00:21 Room Air 05/23/24 00:08 98.8 F 72 18 143/82 H 98 Room Air PG Care Time/CCT Total # of Minutes Spent Total Time Spent with Patient: Total time spent is greater than 50% in coordination of care (as documented) at patient's floor/unit and/or counseling patient: Coding Level of Care Code 50805 SUB INP/OBS CARE 2/35MIN Diagnoses Elevated troponin R79.89 Insulin dependent type 2 diabetes mellitus E11.9; Z79.4 CKD (chronic kidney disease) stage 3, GFR 30-59 ml/min N18.3 MCI (mild cognitive impairment) G31.84 Uncontrolled type 2 diabetes mellitus with hyperglycemia E11.65 Glycemic state: with hyperglycemia Iron deficiency anemia D50.9 Time Spent (min) 35 (5) Diabetes mellitus type 2, uncontrolled Glycemic state: with hyperglycemia Qualified Code(s): E11.65 - Type 2 di abetes mellitus with hyperglycemia
[2024-05-23] MEDS: CIPROFLOXACIN 250 MG TAB PO SCH (12:03)
[2024-05-24] MEDS: ACETAMINOPHEN 500 MG TAB PO PRN (02:49)
[2024-05-24 03:17] VITALS: RESP 16
[2024-05-24 05:39] LABS: Hematocrit (blood only) 24.6 % (37.0-47.0); Hemoglobin 7.6 g/dl (12.0-16.0); Mean Corpuscular Hemoglobin 29.8 pg (25.0-34.0); Mean Corpuscular Hgb Conc 30.9 g/dL (32.0-36.0); Mean Corpuscular Volume 96.5 fL (80.0-100.0); Mean Platelet Volume 11.9 fL (9.4-12.4); Platelet Count 268 K/uL (130-400); RDW Coefficient of Variation 14.7 % (11.5-14.5); RDW Standard Deviation 52.4 fL (36.4-46.3); Red Blood Count 2.55 M/uL (4.20-5.40); White Blood Count 13.28 K/ul (4.8-10.8)
[2024-05-24 06:23] LABS: BUN Creatinine Ratio 19.3 (10-20); Calcium 8.7 mg/dl (8.6-10.3); Creatinine Clr Calc Pharmacy 13.9 ml/min
[2024-05-24] MEDS: SODIUM ZIRCONIUM CYCLOSILICATE 10 GM PACKET PO SCH (08:43)
[2024-05-24] MEDS: cefTRIAXone SODIUM 2,000 MG/50 ML BAG IV SCH (09:34)
[2024-05-24 11:51] VITALS: PULSE 65; TEMP 98.1; O2SAT 95
--- NOTE | 2024-05-24 12:05 | Discharge Summary ---
Date of Service May 24, 2024 Admission HPI Per Admitting Provider The patient is a 73-year-old female with a past medical history including insulin-dependent diabetes mellitus type 2, obesity, lumbar spinal stenosis with neurogenic claudication, word finding difficulty, major depressive disorder recurrent, morbid obesity, anxiety, CKD stage III, diastolic CHF, mild cognitive impairment, GERD without esophagitis, hypertension, dyslipidemia, and hyperthyroidism. She presents to the emergency department with generalized fatigue, shortness of breath and dyspnea on exertion. Significant laboratories included a troponin of 103, with follow-up 88.2. And a creatinine of 2.20, with base 2.06. [facility] and [facility]. Of note, patient had a negative respiratory BioFire test and chest x-ray while in the ED Admission Exam (Per Admitting) Constitutional The patient is awake, alert and oriented 3, well developed and well nourished, normocephalic and atraumatic, lying in bed and in no acute distress. HEENT--PERRL, EOMI, mucous membranes and oropharynx mildly dry Neck--supple. No JVD. No bruits. Thyroid normal, trachea midline, no adenopathy. Heart--normal S1 and S2. No murmurs, rubs or gallops. Lungs--clear bilaterally, no respiratory distress, no accessory muscle use. Abdomen--normal bowel sounds and soft. Extremities--no cyanosis or clubbing. No edema. Dermatologic--normal skin turgor, normal color, no abnormal lymph nodes, no rash. Neurologic--cranial nerves II through XII grossly intact. Rheumatologic--normal range of motion. Psychiatric--normal affect. Hospital Course (1) Elevated troponin: (2) Insulin dependent type 2 diabetes mellitus: (3) CKD (chronic kidney disease) stage 3, GFR 30-59 ml/min: (4) MCI (mild cognitive impairment): (5) Diabetes mellitus type 2, uncontrolled: (6) Iron deficiency anemia: Plan The patient is a 73-year-old female with a past medical history including insulin-dependent diabetes mellitus type 2, obesity, lumbar spinal stenosis with neurogenic claudication, word finding difficulty, major depressive disorder recurrent, morbid obesity, anxiety, CKD stage III, diastolic CHF, mild cognitive impairment, GERD without esophagitis, hypertension, dyslipidemia, and hyperthyroidism. She presents to the emergency department with generalized fatigue, shortness of breath and dyspnea on exertion. Significant laboratories included a troponin of 103, with follow-up 88.2, with no acute ST-T changes on EKG and a creatinine of 2.20, with base 2.06. [facility] and treatment. Of note, patient had a negative respiratory BioFire test and chest x-ray while in the ED. #Elevated troponin/hypertension/dyspnea on exertion/history of diastolic CHF- Echocardiogram dose not show RWMA and has preserved EF Initial troponin 103,-> 88.2->42, suspect demand ischemia Continue amlodipine, aspirin, labetalol Urinary tract infection -Urinalysis suggestive of UTI History of pansensitive E. coli current cultures also growing e coli pansensitive Empiric ceftriaxone 2 g IV daily for a few days, will transition to PO cefdinir 300mg BID for 5 days Anemia of chronic disease and iron Def Anemia Hb 7.9, post transfusion of 1 unit of blood Also received a dose of venofer 400mg due to low Iron check stool for hemoccult blood -on EPOetin alpha 40,000 units subcu monthly, #Diabetes mellitus/uncontrolled- Glucose 233 on admission Hold Jardiance Patient Accu-Cheks with NovoLog SSI Continue glargine but reduced from 36-30 SQ every morning #CKD/nephrotic syndrome-Temporarily hold lisinopril Creatinine 2.20 on admission with base 2.06 Follow serially #Chronic medical conditions: Hyperlipidemia-continue rosuvastatin Major depression history-continue buspirone, venlafaxine Hyperthyroidism-continue methimazole History of hyperkalemia-4.6 on admission, hold Lokelma for now GERD-continue pantoprazole Allergic symptoms-temporarily hold nasal spray B12 deficiency-continue supplement Coding Level of Care Code 08698 INP/OBS DISCH >30 MIN Diagnoses Elevated troponin R79.89 Insulin dependent type 2 diabetes mellitus E11.9; Z79.4 CKD (chronic kidney disease) stage 3, GFR 30-59 ml/min N18.3 MCI (mild cognitive impairment) G31.84 Uncontrolled type 2 diabetes mellitus with hyperglycemia E11.65 Glycemic state: with hyperglycemia Iron deficiency anemia D50.9 Time Spent (min) 35
[2024-05-24 12:27] VITALS: BP 146/78
== END 2024-05-24 13:05 | disposition home or self-care (01) | DRG 690 ==
LOC: ED 13:33 → SUATTDRO 21:26 → 4W 21:26

== ENCOUNTER 2024-12-14 17:25 | Observation (INO) ==
[2024-12-14 19:05] LABS: Hematocrit (blood only) 32.0 % (37.0-47.0); Hemoglobin 9.8 g/dl (12.0-16.0); Immature Granulocytes # (auto) 0.09 K/uL (0.01-0.20); Immature Granulocytes % (auto) 0.6 %; Mean Corpuscular Hemoglobin 30.7 pg (25.0-34.0); Mean Corpuscular Volume 100.3 fL (80.0-100.0); Platelet Count 288 K/uL (130-400); RDW Standard Deviation 47.6 fL (36.4-46.3); Red Blood Count 3.19 M/uL (4.20-5.40); White Blood Count 15.66 K/ul (4.8-10.8)
[2024-12-14 19:21] LABS: Influenza A virus by PCR Negative (Neg); Influenza B virus by PCR Negative (Neg); SARS CoV2 RNA(COVID-19) Ceph NEGATIVE (Negative)
[2024-12-14 19:23] LABS: Alanine Aminotransferase 13 U/L (7-52); Albumin Globulin Ratio 0.8 (0.9-2); Alkaline Phosphatase 82 U/L (34-104); Anion Gap 11 (3-11); Bilirubin,Total 0.3 mg/dl (0.2-1.0); Blood Urea Nitrogen 64 mg/dl (6-23); Calcium 9.4 mg/dl (8.6-10.3); Carbon Dioxide 19 mmol/L (21-32); Chloride 107 mmol/L (98-107); Globulin 4.3 gm/dl (2.5-4.0); Glucose 223 mg/dl (70-99(Fasting)); Potassium 5.7 mmol/L (3.5-5.1); Sodium 137 mmol/L (136-145); Total Protein 7.8 gm/dl (6.0-8.3)
[2024-12-14 19:40] VITALS: TEMP 97.7
--- NOTE | 2024-12-14 20:04 | Emergency Department Note ---
History of Present Illness General Chief complaint: Flu Like Symptoms Stated complaint: DEHYDRATED FLU SYMPTOMS Time Seen by Provider: 12/14/24 20:04 History of Present Illness This is a 74-year-old female that presents to the emergency department via private vehicle with complaints of "dehydrated, flulike symptoms". The patient notes yesterday she had fatigue, cough, congestion, headache, body aches, diarrhea. No nausea or vomiting. The patient denies any chest pain or shortness of breath. No abdominal pain. Much of the symptoms resolved today, but notes progressive fatigue therefore prompting arrival. Decreased oral intake over the past few days as well. Home Medications Medication Instructions Recorded Confirmed Type acetaminophen 500 mg tablet 1,000 mg PO Q6H PRN Pain 06/19/21 12/14/24 History lancets (Accu-Chek Softclix #200 ea 04/27/22 12/03/24 Rx Lancets) blood sugar diagnostic (Accu-Chek #100 ea 01/30/23 12/03/24 Rx Guide test strips) blood-glucose meter (Accu-Chek #1 ea 02/13/23 12/03/24 Rx Guide Glucose Meter) aspirin 81 mg tablet,delayed 81 mg PO QAM #0 tabs 03/20/23 12/14/24 Rx release ascorbic acid (vitamin C) 1,000 mg 1 g PO DAILY 11/26/23 12/14/24 History tablet (Vitamin C) cholecalciferol (vitamin D3) 125 125 mcg PO QAM 11/26/23 12/14/24 History mcg (5,000 unit) capsule cyanocobalamin (vitamin B-12) 1,000 mcg PO QAM 11/26/23 12/14/24 History 1,000 mcg tablet blood-glucose sensor (FreeStyle #3 ea 11/28/23 12/03/24 Rx Darek 3 Sensor device) amlodipine 10 mg tablet 10 mg PO HS #90 tabs 01/03/24 12/14/24 Rx lisinopril 10 mg tablet 10 mg PO DAILY #90 tabs 03/11/24 12/14/24 Rx pantoprazole 40 mg tablet,delayed 40 mg PO QAM #90 tabs 03/13/24 12/14/24 Rx release methimazole 10 mg tablet 5 mg (1/2 x 10 mg) PO QAM #90 tabs 06/08/24 12/14/24 Rx venlafaxine 150 mg 150 mg PO QAM #90 caps 06/08/24 12/14/24 Rx capsule,extended release 24 hr (Effexor XR) insulin glargine 100 unit/mL 36 unit (0.36 mL) subcut QAM #20 mL 07/23/24 12/14/24 Rx subcutaneous solution (Lantus U-100 Insulin) calcitriol 0.25 mcg capsule 0.25 mcg PO 3XWK #36 caps 08/04/24 12/14/24 Rx sodium zirconium cyclosilicate 10 10 g PO 2XWK #11 ea 09/11/24 12/14/24 Rx gram oral powder packet (Lokelma) labetalol 100 mg tablet 100 mg PO BID #60 tabs 09/30/24 12/14/24 Rx empagliflozin 10 mg tablet 10 mg PO DAILY #30 tabs 10/02/24 12/14/24 Rx (Jardiance) insulin aspart U-100 100 unit/mL 1 sliding scale dose subcut DAILY 10/07/24 12/14/24 Rx (3 mL) subcutaneous pen (Novolog #15 mL FlexPen U-100 Insulin aspart) pen needle, diabetic 32 gauge x #100 ea 10/07/24 12/03/24 Rx 1/4" (CareFine Pen Needle) ferrous sulfate 325 mg (65 mg 325 mg PO BID #60 tabs 11/17/24 12/14/24 Rx iron) tablet (Feosol) folic acid 1 mg tablet 1 mg PO QAM #30 tabs 11/17/24 12/14/24 Rx furosemide 20 mg tablet (Lasix) 20 mg PO DAILY PRN leg swelling 11/17/24 12/14/24 Rx #90 tabs magnesium oxide 400 mg (241.3 mg 400 mg PO DAILY #90 tabs 11/17/24 12/14/24 Rx magnesium) tablet buspirone 15 mg tablet 15 mg PO BID #60 tabs 11/18/24 12/14/24 Rx epoetin rosa 40,000 unit/mL 40,000 unit subcut MONTHLY 12/10/24 12/14/24 History injection solution (Procrit) rosuvastatin 20 mg tablet 20 mg PO QAM 12/14/24 12/14/24 History Allergies Allergy/AdvReac Type Severity Reaction Status Date / Time No Known Allergies Allergy Verified 12/14/24 20:39 Past Med/Surg History Problem List (Updated 12/14/24 @ 23:39 by Zaid Wylie PA-C) Fatigue (Acute) Acute hyperkalemia (Acute) Acute kidney injury superimposed on CKD Acute hyperkalemia Chronic bilateral low back pain with sciatica Orthostatic hypotension (Chronic) Urinary incontinence 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 joint pain Obesity Chronic low back pain Spinal stenosis, lumbar region with neurogenic claudication Right knee pain Major depressive disorder, recurrent, in partial remission Headaches due 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 Chronic kidney disease, stage IV (severe) Post concussive syndrome TIA (transient ischemic attack) (Acute) Anxiety Diastolic CHF MCI (mild cognitive impairment) Early satiety Iron deficiency anemia Secondary hyperparathyroidism Recurrent UTI Ketonuria (Acute) Diabetic nephropathy associated with type 2 diabetes mellitus Left cataract Vitamin D deficiency Nephrotic syndrome GERD without esophagitis Arthritis Hypertension Dyslipidemia HNP (herniated nucleus pulposus), lumbar Hyperthyroidism Medical History Leukocytosis Acute hyperkalemia Word finding difficulty Acute kidney injury superimposed on CKD Elevated troponin Vasovagal episode Melanoma of nose Major depressive disorder, recurrent severe without psychotic features Surgical History Status post trigger finger release History of repair of left rotator cuff History of repair of right rotator cuff History of colonoscopy History of melanoma excision History of tooth extraction History of bilateral cataract extraction S/P tonsillectomy S/P tubal ligation S/P cholecystectomy Family History Father Prostate cancer Diabetes Myocardial infarction Lung cancer Mother Diabetes Alzheimer disease Myocardial infarction Hypertension Brother COPD (chronic obstructive pulmonary disease) Other No family history of adverse response to anesthesia Denies family history of Ovarian cancer Breast cancer Colorectal cancer Social History Smoking Status: Never smoker Second Hand Exposure: No; Do You Dip or Chew Tobacco: No; Hx Alcohol Use: Yes Hx Substance Use: No Preferred Language: American Communication Ability: Effective Communication Ability Comment: Reports difficulty reading now r/t dizziness Visual Impairment: No Limitations Hearing Ability: Normal Hemodialysis Charge Nurse Required: No Beliefs That Will Affect Care: None marital status: / Current Living Situation: Family Current Living Situation Comment: lives with daughter current occupational status: retired current occupation: retired - worked at [email or web address] Feels Safe at Home: Yes Childhood Exposure to Second-Hand Smoke: No Diet: regular caffeine: Yes (Soda x 10 cans per day.) during the past year weight has: remained stable Dental Care, Regularly: No Seatbelt Use: always Sunscreen Use: No Assistive Devices: Bedside Commode, Cane and Walker Review of Systems A total of 10 systems reviewed and were otherwise negative Physical Exam Vital Signs Vital Signs - 24 hr 12/14/24 17:33 12/14/24 19:38 12/14/24 20:30 Temperature 36.4 C L 36.5 C Temperature Source Oral Oral Pulse Rate 65 66 Pulse Rate [Apical] 68 Pulse Rhythm [Apical] Regular Pulse Strength [Apical] Normal Respiratory Rate 18 20 Respiratory Effort / Characteristics Non-Labored Spontaneous Non-Labored Spontaneous Respiratory Depth Normal Normal Respiratory Pattern Regular Regular Blood Pressure 125/64 Blood Pressure [Right Arm] 136/74 Blood Pressure Mean 84 Blood Pressure Mean [Right Arm] 94 Pulse Oximetry 97 98 Oxygen Delivery Method Room Air Room Air Sepsis Recent Fever Within 48 Hours No Sepsis New/Unexplained Change in Mental Status No Sepsis Action Taken by Nursing No Action Required 12/14/24 20:30 12/14/24 21:00 12/14/24 21:30 Temperature Temperature Source Pulse Rate 68 68 77 Pulse Rate [Apical] Pulse Rhythm [Apical] Pulse Strength [Apical] Respiratory Rate 17 16 21 Respiratory Effort / Characteristics Respiratory Depth Respiratory Pattern Blood Pressure 176/81 H 170/69 H 170/91 H Blood Pressure [Right Arm] Blood Pressure Mean 112 102 137 Blood Pressure Mean [Right Arm] Pulse Oximetry 97 97 96 Oxygen Delivery Method Sepsis Recent Fever Within 48 Hours Sepsis New/Unexplained Change in Mental Status Sepsis Action Taken by Nursing 12/14/24 22:00 12/14/24 22:33 12/14/24 22:45 Temperature Temperature Source Pulse Rate 81 81 Pulse Rate [Apical] 77 Pulse Rhythm [Apical] Pulse Strength [Apical] Respiratory Rate 17 18 16 Respiratory Effort / Characteristics Respiratory Depth Normal Respiratory Pattern Blood Pressure 169/62 H 179/73 H Blood Pressure [Right Arm] 175/76 H Blood Pressure Mean 97 108 Blood Pressure Mean [Right Arm] 109 Pulse Oximetry 97 96 97 Oxygen Delivery Method Room Air Sepsis Recent Fever Within 48 Hours Sepsis New/Unexplained Change in Mental Status Sepsis Action Taken by Nursing VITAL SIGNS - Vital signs and nursing notes were reviewed. Stable and afebrile. GENERAL -74-year-old female appearing her stated age who is in no acute distress. Communicates well with provider and answers questions appropriately. SKIN - Without rashes. No meningeal or petechial rash. HEAD - NC/AT. EYES - PERRL with EOMI bilaterally. Sclera anicteric. EARS - No deformities of external structures noted on gross examination bilaterally. . NOSE - Midline and without cyanosis. No epistaxis or purulent drainage noted. MOUTH/OROPHARYNX - Without perioral cyanosis. NECK - Neck with FROM. LUNGS - CTA CARDIAC - RRR ABDOMEN - Abdominal contour normal without pulsations or visible masses. BS normoactive all four quadrants. No tenderness, palpable masses, hepatosplenomegaly, or ascites noted. EXTREMITIES - No clubbing or peripheral cyanosis. +5/5 strength noted in UE/LE bilaterally. NEUROLOGIC - Cranial nerves II through XII grossly intact. PSYCH -alert, oriented and pleasant on exam Course Administered Medications Sodium Chloride (Nss) 1,000 mls @ 80 mls/hr IV .[id number] IAN Stop: 12/15/24 10:29 Last Admin: 12/14/24 22:36 Dose: 80 mls/hr Documented By: SAVANAH Discontinued Medications Dextrose (Dextrose 50% 50 Ml Syringe) 50 ml IV NOW STA Stop: 12/14/24 20:09 Last Admin: 12/14/24 21:15 Dose: 50 ml Documented By: SAVANAH Calcium Gluconate () 1,000 mg in 60 mls @ 240 mls/hr IV NOW STA Stop: 12/14/24 20:22 Last Infusion: 12/14/24 22:04 Dose: Infused Documented By: Admin: 12/14/24 21:15 Dose: 240 mls/hr Documented By: SAVANAH Insulin Human Regular 10 units (/ Syringe) 9.9 mls @ 3 mls/sec IV ONE STA Stop: 12/14/24 20:09 Last Admin: 12/14/24 21:15 Dose: 3 mls/sec Documented By: SAVANAH Co-signed By: IVORY Sodium Chloride (Nss) 1,000 mls @ 80 mls/hr IV .[id number] ONE Stop: 12/15/24 08:43 Last Infusion: 12/14/24 22:04 Dose: 0 mls/hr Documented By: Admin: 12/14/24 21:16 Dose: 80 mls/hr Documented By: SAVANAH Labetalol HCl (Labetalol Hcl 100 Mg Tab) 100 mg PO NOW ONE Stop: 12/14/24 21:31 Last Admin: 12/14/24 22:01 Dose: 100 mg Documented By: SAVANAH Sodium Zirconium Cyclosilicate (Sodium Zirconium Cyclosilicate 10 Gm Packet) 10 gm PO NOW STA Stop: 12/14/24 21:43 Last Admin: 12/14/24 22:01 Dose: 10 gm Documented By: SAVANAH Medical Decision Making Laboratory Data 12/14/24 18:32 12/14/24 18:32 Lab Results 12/14/24 12/14/24 12/14/24 Range/Units 18:15 18:32 18:48 WBC 15.66 H (4.8-10.8) K/ul RBC 3.19 L (4.20-5.40) M/uL Hgb 9.8 L (12.0-16.0) g/dl Hct 32.0 L (37.0-47.0) % MCV 100.3 H (80.0-100.0) fL MCH 30.7 (25.0-34.0) pg MCHC 30.6 L (32.0-36.0) g/dL RDW Std Deviation 47.6 H (36.4-46.3) fL RDW Coeff of Emil 13.0 (11.5-14.5) % Plt Count 288 (130-400) K/uL MPV 11.2 (9.4-12.4) fL Immature Gran % (Auto) 0.6 % Neut % (Auto) 72.0 % Lymph % (Auto) 12.9 % Garrett % (Auto) 10.2 % Eos % (Auto) 3.6 % Baso % (Auto) 0.7 % Neut # (Auto) 11.28 H (1.40-6.50) K/uL Lymph # (Auto) 2.02 (1.20-3.40) K/uL Garrett # (Auto) 1.59 H (0.11-0.59) K/uL Eos # (Auto) 0.57 H (0.00-0.50) K/uL Baso # (Auto) 0.11 (0.00-0.20) K/uL Immature Gran # (Auto) 0.09 (0.01-0.20) K/uL Absolute Nucleated RBC 0.02 (0.00-0.12) K/uL Nucleated RBC % (auto) 0.1 % Sodium 137 (136-145) mmol/L Potassium 5.7 H (3.5-5.1) mmol/L Chloride 107 (98-107) mmol/L Carbon Dioxide 19 L (21-32) mmol/L Anion Gap 11 (3-11) BUN 64 H (6-23) mg/dl Creatinine 2.81 H (0.6-1.2) mg/dl Est Cr Clr Drug Dosing Not Reportable eGFR 17.00 BUN/Creatinine Ratio 22.8 H (10-20) Glucose 223 H (70-99(Fasting)) mg/dl Calcium 9.4 (8.6-10.3) mg/dl Magnesium 2.3 (1.7-2.4) mg/dl Total Bilirubin 0.3 (0.2-1.0) mg/dl AST 9 L (13-39) U/L ALT 13 (7-52) U/L Alkaline Phosphatase 82 (34-104) U/L Total Protein 7.8 (6.0-8.3) gm/dl Albumin 3.5 (3.4-5.0) gm/dl Globulin 4.3 H (2.5-4.0) gm/dl Albumin/Globulin Ratio 0.8 L (0.9-2) Procalcitonin 1.43 H (0-0.5) ng/ml SARS-CoV-2 (PCR) NEGATIVE (Negative) Influenza Type A (PCR) Negative (Neg) Influenza Type B (PCR) Negative (Neg) RSV (RT-PCR) Negative (Neg) Imaging Data Radiologist's Impression: Chest X-Ray 12/14/24 20:18 Exam(s): XR CXR 1 VIEW EXAM: XR Chest, 1 View CLINICAL HISTORY: Reason for exam: fatigue, cough. TECHNIQUE: Frontal view of the chest. COMPARISON: Chest radiograph on 09/08/2024 FINDINGS: Hardware: None. Lungs/pleura: Mildly prominent lung markings. No focal consolidation. No pleural effusion or pneumothorax. Heart/mediastinum: Atherosclerotic changes in the aorta. No cardiomegaly. Soft tissues: Unremarkable. Bones: No acute fracture. Upper abdomen: Normal. IMPRESSION: Prominent lung markings may be secondary to technique versus pulmonary vasculature congestion. Electronically signed by: Jose Enrique Link M.D. 12/14/24 21:24 PM MDM Narrative Patient was seen and evaluated as above in room C09. Review was performed of nursing notes and vital signs. I did review pertinent previous visits and patient history. After obtaining a thorough history and physical examination the above work up was performed. Patient presents to us today with the above symptoms. She is well-appearing and nontoxic on exam but does appear clinically dry. EKG per my interpretation reveals normal sinus rhythm at a rate of 67 bpm. QTc 414. QRS 80. No ST elevation on this rhythm tracing. Chest x-ray negative for infiltrate. There is prominent lung markings noted as above. There is leukocytosis 15.66. Anemia with hemoglobin at 9.8. There is hyperkalemia 5.7. CKD creatinine 2.81 with BUN of 64. Hyperglycemia 223. Procalcitonin 1.43 without obvious source of any infection. BioFire panel negative. There is no fever. IV calcium, IV insulin, IV dextrose ordered for treatment of hyperkalemia. I do believe that further evaluation and management in the inpatient setting is warranted. Maintenance fluids ordered. Please refer to further documentation regarding her stay. I will hold off on empiric anabiotic at this time pending clinical course noting lack of infectious symptoms and findings at this time. GCS: 15 In the evaluation and treatment of this patient the following differential diagnoses were entertained: Volume depletion, KEEGAN, electrolyte disturbance, viral URI, among others Impression & Plan Acute kidney injury superimposed on CKD, Acute hyperkalemia, Fatigue Discharge Plan Visit Data Chief Complaint: Flu Like Symptoms Stated Complaint: DEHYDRATED FLU SYMPTOMS ED Provider: Ching Flores ED Midlevel Provider: Zaid Wylie Discharge Problem: Acute kidney injury superimposed on CKD, Acute hyperkalemia, Fatigue Patient Disposition: Admitted As Inpatient Condition: Good Forms Stand Alone Forms: My [facility] ServiceRelated Prescriptions Prescriptions: No Action ascorbic acid (vitamin C) [Vitamin C] 1,000 mg tablet 1 g PO DAILY cyanocobalamin (vitamin B-12) 1,000 mcg tablet 1,000 mcg PO QAM cholecalciferol (vitamin D3) 125 mcg (5,000 unit) capsule 125 mcg PO QAM (DME) Accu-Chek Guide test strips Strip See Rx Instructions .Route Qty: 100 5RF Rx Instructions: Test blood sugar TID amlodipine 10 mg tablet 10 mg PO HS Qty: 90 3RF lisinopril 10 mg tablet 10 mg PO DAILY Qty: 90 3RF Hold Instructions: Resume on 10/10/24. hold until Dr. Paige says it is ok to reusme Rx Instructions: ON HOLD pantoprazole 40 mg tablet,delayed release (DR/EC) 40 mg PO QAM Qty: 90 1RF venlafaxine [Effexor XR] 150 mg capsule,extended release 24hr 150 mg PO QAM Qty: 90 1RF methimazole 10 mg tablet 5 mg PO QAM Qty: 90 1RF insulin glargine [Lantus U-100 Insulin] 100 unit/mL solution 36 unit subcut QAM MDD 60 Qty: 20 6RF calcitriol 0.25 mcg capsule 0.25 mcg PO 3XWK Qty: 36 3RF Rx Instructions: Saturday, Saturday, Saturday in the morning labetalol 100 mg tablet 100 mg PO BID Qty: 60 5RF furosemide [Lasix] 20 mg tablet 20 mg PO DAILY PRN (Reason: leg swelling) Qty: 90 1RF Rx Instructions: ON HOLD magnesium oxide 400 mg (241.3 mg magnesium) tablet 400 mg PO DAILY Qty: 90 1RF ferrous sulfate [Feosol] 325 mg (65 mg iron) tablet 325 mg PO BID Qty: 60 5RF folic acid 1 mg tablet 1 mg PO QAM Qty: 30 1RF buspirone 15 mg tablet 15 mg PO BID Qty: 60 3RF (DME) lancets [Accu-Chek Softclix Lancets] Misc See Rx Instructions .Route Qty: 200 3RF Rx Instructions: As directed; BS TID (DME) blood-glucose meter [Accu-Chek Guide Glucose Meter] Misc See Rx Instructions .Route Qty: 1 0RF Rx Instructions: As directed; BS TID Jardiance 10 mg tablet 10 mg PO DAILY Qty: 30 2RF insulin aspart U-100 [Novolog FlexPen U-100 Insulin] 100 unit/mL (3 mL) insulin pen 1 sliding scale dose subcut DAILY MDD 40 Qty: 15 2RF Rx Instructions: Inject 8 units before first meal of the day (DME) pen needle, diabetic [CareFine Pen Needle] 32 gauge x 1/4" needle See Rx Instructions .Route Qty: 100 6RF Rx Instructions: Inject twice daily (DME) FreeStyle Darek 3 Sensor Device See Rx Instructions .Route Qty: 3 3RF Rx Instructions: As directed Procrit 40,000 unit/mL solution 40,000 unit subcut MONTHLY Rx Instructions: Hold for Hgb 10 or greater acetaminophen 500 mg Tablet 1,000 mg PO Q6H PRN (Reason: Pain) aspirin 81 mg Tablet,Delayed Release (Dr/Ec) 81 mg PO QAM Qty: 0 0RF Rx Instructions: buy over the counter, for stroke prevention Lokelma 10 gram Powder In Packet 10 g PO 2XWK Qty: 11 0RF rosuvastatin 20 mg tablet 20 mg PO QAM Rx Instructions: TAKE ONE TABLET BY MOUTH IN THE MORNING Referrals Referrals: Ramirez Villela CRNP [Primary Care Provider] -
--- NOTE | 2024-12-14 20:16 | Emergency Department Note ---
ED Visit Note I was consulted by the Advanced Practice Provider, Zaid Wylie PA-C. I performed a substantive portion of the visit. This includes aspects of: History: Patient is a 74-year-old female presenting with general malaise, cough and congestion. Patient reports symptoms started yesterday and have progressively worsened. She had cough, congestion and diarrhea yesterday. Reports progressively worsening fatigue today. Denies any notable fevers at home. MDM: - Laboratory workup interpreted by myself showed leukocytosis (WBC 15.66); anemia (Hgb 9.8); elevated procalcitonin (1.43); hyperkalemia (K 5.7); KEEGAN on CKD (Cr 2.81) - Blood cultures obtained - COVID/flu/RSV negative - CXR image reviewed by myself was negative for pneumonia, per my interpretation. - Patient was given 1 g IV calcium, 1 L of normal saline, 10 units of insulin with 50 mL dextrose for hyperkalemia treatment. - Patient to be admitted to inpatient [facility] service for further evaluation and management. .
[2024-12-14 20:25] LABS: Magnesium 2.3 mg/dl (1.7-2.4)
[2024-12-14] MEDS: CALCIUM GLUCONATE 1,000 MG/60 ML BAG IV STA (21:15)
[2024-12-14] MEDS: INSULIN HUMAN REGULAR PER UNIT 10 UNITS in SYRINGE 9.9 ML IV STA (21:15)
[2024-12-14] MEDS: DEXTROSE 50% 50 ML SYRINGE IV STA (21:15)
[2024-12-14] MEDS: SODIUM CHLORIDE 0.9% 1,000 ML IV ONE (21:16)
--- NOTE | 2024-12-14 21:25 | XRay Report ---
Exam(s): XR CXR 1 VIEW EXAM: XR Chest, 1 View CLINICAL HISTORY: Reason for exam: fatigue, cough. TECHNIQUE: Frontal view of the chest. COMPARISON: Chest radiograph on 09/08/2024 FINDINGS: Hardware: None. Lungs/pleura: Mildly prominent lung markings. No focal consolidation. No pleural effusion or pneumothorax. Heart/mediastinum: Atherosclerotic changes in the aorta. No cardiomegaly. Soft tissues: Unremarkable. Bones: No acute fracture. Upper abdomen: Normal. IMPRESSION: Prominent lung markings may be secondary to technique versus pulmonary vasculature congestion. Electronically signed by: Jose Enrique Link M.D. 12/14/24 21:24 PM
--- NOTE | 2024-12-14 21:59 | History & Physical Report ---
Date of Service December 14, 2024 Assessment & Plan (1) Acute kidney injury superimposed on CKD: (2) Acute hyperkalemia: (3) Fatigue: (4) PAC (premature atrial contraction): Plan The patient is a 74-year-old female with past medical history including CKD stage IV, chronic back pain, urinary incontinence, insulin-dependent diabetes mellitus type 2, anxiety, mild cognitive impairment, recurrent urinary tract infection, hypertension, dyslipidemia, and hypothyroidism. She presents to the emergency department with primary symptom of progressively worsening fatigue and generalized weakness over the past several days. She had previously been having congestion, headache, body aches, and intermittent cough, which have resolved prior to today. Laboratories in the emergency department revealed hyperkalemia 5.7, and worsening of creatinine from 2.09-2.81. She was noted to be having frequent PACs on monitor during this evaluation. She was then referred for evaluation for admission to [facility]. Hyperkalemia/PACs- Potassium 5.7 on admission From the ED received the following: Calcium gluconate 1 g IV, 1 amp of D50, regular insulin 10 units IV. She usually takes Lokelma 10 mg on Saturday and . Will give Lokelma 10 mg p.o. this evening, which is Saturday. Repeat laboratories in the a.m. Give her evening dose of labetalol 100 mg p.o. now Admit to PCU to follow PACs KEEGAN superimposed on CKD stage IV- Creatinine 2.81 on admission, left base 2.09 NSS at 80 mL/h x 1 L Hold as needed furosemide Continue calcitriol, cholecalciferol, ferrous sulfate, folic acid, magnesium oxide, and Lokelma. Repeat laboratories in a.m. Hypertension- Last echocardiogram on 05/20/2024 with ejection fraction 55-60%, unchanged since 03/16/2023 Continue amlodipine, aspirin, labetalol Hold lisinopril Insulin-dependent diabetes mellitus type 2- Reduce glargine from 36 to 24 units subcu every morning Patient Accu-Cheks with NovoLog SSI Hold empagliflozin Check hemoglobin A1c Hyperlipidemia- Continue rosuvastatin GERD without esophagitis- Continue pantoprazole Hypothyroidism- Continue methimazole History of Present Illness Chief Complaint: The patient presents to the emergency department with complaint of generalized fatigue, congestion, headache, body aches and intermittent cough, feeling that she is dehydrated and having flulike symptoms, all had gradually worsening over the past several days. She reports today however that the primary symptom remaining is that of fatigue. She reports decreased appetite, and liquid intake over the past few days as well. Primary Care Provider: LISA Calle The patient is a 74-year-old female with past medical history including CKD stage IV, chronic back pain, urinary incontinence, insulin-dependent diabetes mellitus type 2, anxiety, mild cognitive impairment, recurrent urinary tract infection, hypertension, dyslipidemia, and hypothyroidism. She presents to the emergency department with primary symptom of progressively worsening fatigue and generalized weakness over the past several days. She had previously been having congestion, headache, body aches, and intermittent cough, which have resolved prior to today. Laboratories in the emergency department revealed hyperkalemia 5.7, and worsening of creatinine from 2.09-2.81. She was noted to be having frequent PACs on monitor during this evaluation. She was then referred for evaluation for admission to [facility]. Allergies Allergy/AdvReac Type Severity Reaction Status Date / Time No Known Allergies Allergy Verified 12/14/24 20:39 Home Medications Medication Instructions Recorded Confirmed Type acetaminophen 500 mg tablet 1,000 mg PO Q6H PRN Pain 06/19/21 12/14/24 History lancets (Accu-Chek Softclix #200 ea 04/27/22 12/03/24 Rx Lancets) blood sugar diagnostic (Accu-Chek #100 ea 01/30/23 12/03/24 Rx Guide test strips) blood-glucose meter (Accu-Chek #1 ea 02/13/23 12/03/24 Rx Guide Glucose Meter) aspirin 81 mg tablet,delayed 81 mg PO QAM #0 tabs 03/20/23 12/14/24 Rx release ascorbic acid (vitamin C) 1,000 mg 1 g PO DAILY 11/26/23 12/14/24 History tablet (Vitamin C) cholecalciferol (vitamin D3) 125 125 mcg PO QAM 11/26/23 12/14/24 History mcg (5,000 unit) capsule cyanocobalamin (vitamin B-12) 1,000 mcg PO QAM 11/26/23 12/14/24 History 1,000 mcg tablet blood-glucose sensor (FreeStyle #3 ea 11/28/23 12/03/24 Rx Darek 3 Sensor device) amlodipine 10 mg tablet 10 mg PO HS #90 tabs 01/03/24 12/14/24 Rx lisinopril 10 mg tablet 10 mg PO DAILY #90 tabs 03/11/24 12/14/24 Rx pantoprazole 40 mg tablet,delayed 40 mg PO QAM #90 tabs 03/13/24 12/14/24 Rx release methimazole 10 mg tablet 5 mg (1/2 x 10 mg) PO QAM #90 tabs 06/08/24 12/14/24 Rx venlafaxine 150 mg 150 mg PO QAM #90 caps 06/08/24 12/14/24 Rx capsule,extended release 24 hr (Effexor XR) insulin glargine 100 unit/mL 36 unit (0.36 mL) subcut QAM #20 mL 07/23/24 12/14/24 Rx subcutaneous solution (Lantus U-100 Insulin) calcitriol 0.25 mcg capsule 0.25 mcg PO 3XWK #36 caps 08/04/24 12/14/24 Rx sodium zirconium cyclosilicate 10 10 g PO 2XWK #11 ea 09/11/24 12/14/24 Rx gram oral powder packet (Lokelma) labetalol 100 mg tablet 100 mg PO BID #60 tabs 09/30/24 12/14/24 Rx empagliflozin 10 mg tablet 10 mg PO DAILY #30 tabs 10/02/24 12/14/24 Rx (Jardiance) insulin aspart U-100 100 unit/mL 1 sliding scale dose subcut DAILY 10/07/24 12/14/24 Rx (3 mL) subcutaneous pen (Novolog #15 mL FlexPen U-100 Insulin aspart) pen needle, diabetic 32 gauge x #100 ea 10/07/24 12/03/24 Rx 1/4" (CareFine Pen Needle) ferrous sulfate 325 mg (65 mg 325 mg PO BID #60 tabs 11/17/24 12/14/24 Rx iron) tablet (Feosol) folic acid 1 mg tablet 1 mg PO QAM #30 tabs 11/17/24 12/14/24 Rx furosemide 20 mg tablet (Lasix) 20 mg PO DAILY PRN leg swelling 11/17/24 12/14/24 Rx #90 tabs magnesium oxide 400 mg (241.3 mg 400 mg PO DAILY #90 tabs 11/17/24 12/14/24 Rx magnesium) tablet buspirone 15 mg tablet 15 mg PO BID #60 tabs 11/18/24 12/14/24 Rx epoetin rosa 40,000 unit/mL 40,000 unit subcut MONTHLY 12/10/24 12/14/24 History injection solution (Procrit) rosuvastatin 20 mg tablet 20 mg PO QAM 12/14/24 12/14/24 History Past Med/Surg History Problem List (Updated 12/15/24 @ 03:20 by Bryan Garcia MD) PAC (premature atrial contraction) Fatigue (Acute) Acute hyperkalemia (Acute) Acute kidney injury superimposed on CKD Acute hyperkalemia Chronic bilateral low back pain with sciatica Orthostatic hypotension (Chronic) Urinary incontinence 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 joint pain Obesity Chronic low back pain Spinal stenosis, lumbar region with neurogenic claudication Right knee pain Major depressive disorder, recurrent, in partial remission Headaches due 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 Chronic kidney disease, stage IV (severe) Post concussive syndrome TIA (transient ischemic attack) (Acute) Anxiety Diastolic CHF MCI (mild cognitive impairment) Early satiety Iron deficiency anemia Secondary hyperparathyroidism Recurrent UTI Ketonuria (Acute) Diabetic nephropathy associated with type 2 diabetes mellitus Left cataract Vitamin D deficiency Nephrotic syndrome GERD without esophagitis Arthritis Hypertension Dyslipidemia HNP (herniated nucleus pulposus), lumbar Hyperthyroidism Medical History Leukocytosis Acute hyperkalemia Word finding difficulty Acute kidney injury superimposed on CKD Elevated troponin Vasovagal episode Melanoma of nose Major depressive disorder, recurrent severe without psychotic features Surgical History Status post trigger finger release History of repair of left rotator cuff History of repair of right rotator cuff History of colonoscopy History of melanoma excision History of tooth extraction History of bilateral cataract extraction S/P tonsillectomy S/P tubal ligation S/P cholecystectomy Family History Father Prostate cancer Diabetes Myocardial infarction Lung cancer Mother Diabetes Alzheimer disease Myocardial infarction Hypertension Brother COPD (chronic obstructive pulmonary disease) Other No family history of adverse response to anesthesia Denies family history of Ovarian cancer Breast cancer Colorectal cancer Social History Smoking Status: Never smoker Second Hand Exposure: No; Do You Dip or Chew Tobacco: No; Hx Alcohol Use: Yes Hx Substance Use: No Preferred Language: Citizen Of [place] Communication Ability: Effective Communication Ability Comment: Reports difficulty reading now r/t dizziness Visual Impairment: No Limitations Hearing Ability: Normal 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 Beliefs That Will Affect Care: None marital status: / Current Living Situation: Family Current Living Situation Comment: lives with daughter current occupational status: retired current occupation: retired - worked at [employer] Feels Safe at Home: Yes Childhood Exposure to Second-Hand Smoke: No Diet: regular caffeine: Yes (Soda x 10 cans per day.) during the past year weight has: remained stable Dental Care, Regularly: No Seatbelt Use: always Sunscreen Use: No Assistive Devices: Bedside Commode, Cane and Walker Review of Systems Review of Systems: The patient denies chest pain, palpitations, lower extremity swelling, sore throat, fevers, chills, sweats, nausea, vomiting, diarrhea , constipation, abdominal pain, pelvic pain, blood in urine or stool, dysuria, urinary frequency or urgency, loss of consciousness, rash, abnormal bruising or bleeding, focal weakness, numbness or tingling in arms or legs, generalized arthralgias or myalgias, back or neck pain, or night sweats. The review of systems is otherwise negative other than for that already noted above, and at least 10 systems have been reviewed. Physical Exam Physical Exam: The patient is awake, alert and oriented 3, well developed and well nourished, normocephalic and atraumatic, lying in bed and in no acute distress. HEENT--PERRL, EOMI, mucous membranes and oropharynx mildly dry. Neck--supple. No JVD. No bruits. Thyroid normal, trachea midline, no adenopathy. Heart--normal S1 and S2. No murmurs, rubs or gallops. Lungs--clear bilaterally, no respiratory distress, no accessory muscle use. Abdomen--normal bowel sounds and soft. Nontender. Nondistended, no hernias or masses, no organomegaly. Extremities--no cyanosis or clubbing. No edema. Dermatologic--normal skin turgor, normal color, no abnormal lymph nodes, no rash. Neurologic--cranial nerves II through XII grossly intact. Rheumatologic--normal range of motion. Psychiatric--normal affect. Results & Data Results & Data Vital Signs (Past 12 Hours) Vital Signs Temp Pulse Pulse Resp BP BP Pulse Ox 12/14/24 21:00 68 16 170/69 H 97 12/14/24 20:30 68 17 176/81 H 97 12/14/24 20:30 66 12/14/24 19:38 36.5 C 68 20 136/74 98 12/14/24 17:33 36.4 C L 65 18 125/64 97 O2 Del Method 12/14/24 21:00 12/14/24 20:30 12/14/24 20:30 12/14/24 19:38 Room Air 12/14/24 17:33 Room Air Laboratory Results Laboratory Results WBC 15.66 K/ul (4.8-10.8) H 12/14/24 18:32 RBC 3.19 M/uL (4.20-5.40) L 12/14/24 18:32 Hgb 9.8 g/dl (12.0-16.0) L 12/14/24 18:32 Hct 32.0 % (37.0-47.0) L 12/14/24 18:32 MCV 100.3 fL (80.0-100.0) H 12/14/24 18:32 MCH 30.7 pg (25.0-34.0) 12/14/24 18:32 MCHC 30.6 g/dL (32.0-36.0) L 12/14/24 18:32 RDW Std Deviation 47.6 fL (36.4-46.3) H 12/14/24 18:32 RDW Coeff of Emil 13.0 % (11.5-14.5) 12/14/24 18:32 Plt Count 288 K/uL (130-400) 12/14/24 18:32 MPV 11.2 fL (9.4-12.4) 12/14/24 18:32 Immature Gran % (Auto) 0.6 % 12/14/24 18:32 Neut % (Auto) 72.0 % 12/14/24 18:32 Lymph % (Auto) 12.9 % 12/14/24 18:32 [place] % (Auto) 10.2 % 12/14/24 18:32 Eos % (Auto) 3.6 % 12/14/24 18:32 Baso % (Auto) 0.7 % 12/14/24 18:32 Neut # (Auto) 11.28 K/uL (1.40-6.50) H 12/14/24 18:32 Lymph # (Auto) 2.02 K/uL (1.20-3.40) 12/14/24 18:32 [place] # (Auto) 1.59 K/uL (0.11-0.59) H 12/14/24 18:32 Eos # (Auto) 0.57 K/uL (0.00-0.50) H 12/14/24 18:32 Baso # (Auto) 0.11 K/uL (0.00-0.20) 12/14/24 18:32 Immature Gran # (Auto) 0.09 K/uL (0.01-0.20) 12/14/24 18:32 Absolute Nucleated RBC 0.02 K/uL (0.00-0.12) 12/14/24 18:32 Nucleated RBC % (auto) 0.1 % 12/14/24 18:32 Sodium 137 mmol/L (136-145) 12/14/24 18:32 Potassium 5.7 mmol/L (3.5-5.1) H 12/14/24 18:32 Chloride 107 mmol/L (98-107) 12/14/24 18:32 Carbon Dioxide 19 mmol/L (21-32) L 12/14/24 18:32 Anion Gap 11 (3-11) 12/14/24 18:32 BUN 64 mg/dl (6-23) H 12/14/24 18:32 Creatinine 2.81 mg/dl (0.6-1.2) H 12/14/24 18:32 Est Cr Clr Drug Dosing Not Reportable 12/14/24 18:32 eGFR 17.00 12/14/24 18:32 BUN/Creatinine Ratio 22.8 (10-20) H 12/14/24 18:32 Glucose 223 mg/dl (70-99(Fasting)) H 12/14/24 18:32 Calcium 9.4 mg/dl (8.6-10.3) 12/14/24 18:32 Magnesium 2.3 mg/dl (1.7-2.4) 12/14/24 18:32 Total Bilirubin 0.3 mg/dl (0.2-1.0) 12/14/24 18:32 AST 9 U/L (13-39) L 12/14/24 18:32 ALT 13 U/L (7-52) 12/14/24 18:32 Alkaline Phosphatase 82 U/L (34-104) 12/14/24 18:32 Total Protein 7.8 gm/dl (6.0-8.3) 12/14/24 18:32 Albumin 3.5 gm/dl (3.4-5.0) 12/14/24 18:32 Globulin 4.3 gm/dl (2.5-4.0) H 12/14/24 18:32 Albumin/Globulin Ratio 0.8 (0.9-2) L 12/14/24 18:32 Procalcitonin 1.43 ng/ml (0-0.5) H 12/14/24 18:48 SARS-CoV-2 (PCR) NEGATIVE (Negative) 12/14/24 18:15 Influenza Type A (PCR) Negative (Neg) 12/14/24 18:15 Influenza Type B (PCR) Negative (Neg) 12/14/24 18:15 RSV (RT-PCR) Negative (Neg) 12/14/24 18:15 Impressions Chest X-Ray 12/14/24 20:18 Exam(s): XR CXR 1 VIEW EXAM: XR Chest, 1 View CLINICAL HISTORY: Reason for exam: fatigue, cough. TECHNIQUE: Frontal view of the chest. COMPARISON: Chest radiograph on 09/08/2024 FINDINGS: Hardware: None. Lungs/pleura: Mildly prominent lung markings. No focal consolidation. No pleural effusion or pneumothorax. Heart/mediastinum: Atherosclerotic changes in the aorta. No cardiomegaly. Soft tissues: Unremarkable. Bones: No acute fracture. Upper abdomen: Normal. IMPRESSION: Prominent lung markings may be secondary to technique versus pulmonary vasculature congestion. Electronically signed by: Jose Enrique Link M.D. 12/14/24 21:24 PM Code Status & VTE Plan Code Status DNR/DNI VTE Prophylaxis Plan VTE Prophylaxis will be ordered: Yes PG Care Time/CCT Total # of Minutes Spent Total Time Spent with Patient: Total time spent is greater than 50% in coordination of care (as documented) at patient's floor/unit and/or counseling patient: Coding Level of Care Code 14847 INT INP/OBS CARE 3/75MIN Diagnoses Acute kidney injury superimposed on CKD N17.9; N18.9 Acute hyperkalemia E87.5 Fatigue R53.83 PAC (premature atrial contraction) I49.1
[2024-12-14] MEDS: SODIUM ZIRCONIUM CYCLOSILICATE 10 GM PACKET PO STA (22:01)
[2024-12-14] MEDS: LABETALOL HCL 100 MG TAB PO ONE (22:01)
[2024-12-14] MEDS: SODIUM CHLORIDE 0.9% 1,000 ML IV SCH (22:36)
[2024-12-15] MEDS ORDERED: CARBOHYDRATES FOR HYPOGLYCEMIA PO PRN (01:15)
[2024-12-15] MEDS ORDERED: DEXTROSE 50% 50 ML SYRINGE IV PRN (01:15)
[2024-12-15] MEDS ORDERED: GLUCAGON FOR INJ 1 MG VIAL SQ PRN (01:15)
[2024-12-15] MEDS ORDERED: GLUCOSE 10 TAB/TUBE PO PRN (01:15)
[2024-12-15] MEDS ORDERED: GLUCOSE 40% GEL 15 GM TUBE PO PRN (01:15)
[2024-12-15] MEDS: ACETAMINOPHEN 325 MG TAB PO PRN (01:45)
[2024-12-15] MEDS: busPIRone 15 MG TAB PO SCH (03:05)
[2024-12-15] MEDS: FERROUS SULFATE 325 MG TAB PO SCH (03:05)
[2024-12-15 04:59] LABS: Hematocrit (blood only) 26.1 % (37.0-47.0); Hemoglobin 8.1 g/dl (12.0-16.0); Immature Granulocytes # (auto) 0.08 K/uL (0.01-0.20); Immature Granulocytes % (auto) 0.6 %; Mean Corpuscular Hemoglobin 30.6 pg (25.0-34.0); Mean Corpuscular Volume 98.5 fL (80.0-100.0); Platelet Count 272 K/uL (130-400); RDW Standard Deviation 46.6 fL (36.4-46.3); Red Blood Count 2.65 M/uL (4.20-5.40); White Blood Count 14.51 K/ul (4.8-10.8)
[2024-12-15 05:17] LABS: Anion Gap 7.0 (3-11); Blood Urea Nitrogen 62.0 mg/dl (6-23); Calcium 8.9 mg/dl (8.6-10.3); Carbon Dioxide 18.0 mmol/L (21-32); Chloride 110.0 mmol/L (98-107); Creatinine Clr Calc Pharmacy 15.8 ml/min; Glucose 174.0 mg/dl (70-99(Fasting)); Magnesium 2.2 mg/dl (1.7-2.4); Potassium 4.8 mmol/L (3.5-5.1); Sodium 135.0 mmol/L (136-145)
--- NOTE | 2024-12-15 09:55 | Electrocardiogram Report ---
Test Reason : Blood Pressure : */* mmHG Vent. Rate : 67 BPM Atrial Rate : 67 BPM P-R Int : 168 ms QRS Dur : 80 ms QT Int : 392 ms P-R-T Axes : 34 44 67 degrees QTcB Int : 414 ms Normal sinus rhythm Normal ECG When compared with ECG of 09-Sep-2024 05:21, No significant change was found Confirmed by Celio Hernandez ([id number]) on 12/15/2024 9:55:15 AM Referred By: REFERRED SELF Confirmed By: Celio Hernandez
[2024-12-15] MEDS: ROSUVASTATIN CALCIUM 20 MG TAB PO SCH (10:06)
[2024-12-15] MEDS: CHOLECALCIFEROL 125 MCG (5,000 UNITS) TAB PO SCH (10:07)
[2024-12-15] MEDS: FOLIC ACID 1 MG TAB PO SCH (10:07)
[2024-12-15] MEDS: ASCORBIC ACID 500 MG TAB PO SCH (10:07)
[2024-12-15] MEDS: MAGNESIUM OXIDE 400 MG TAB PO SCH (10:07)
[2024-12-15] MEDS: LABETALOL HCL 100 MG TAB PO SCH (10:07)
[2024-12-15] MEDS: ASPIRIN 81 MG ECTAB PO SCH (10:07)
[2024-12-15] MEDS: CYANOCOBALAMIN (B-12) 500 MCG TABLET PO SCH (10:08)
[2024-12-15] MEDS: LANTUS PER UNIT CHARGE SQ SCH (10:08)
[2024-12-15] MEDS: VENLAFAXINE HCL XR 150 MG CAPXR PO SCH (10:08)
[2024-12-15] MEDS: INSULIN ASPART PER UNIT CHARGE SQ SCH (10:09)
[2024-12-15] MEDS: HEPARIN SOD 5,000 UNIT/0.5 ML VIAL SQ SCH (10:10)
[2024-12-15 11:29] LABS: Chlamydia pneumoniae PCR Not Detected (NotDetected); Coronavirus 229E PCR Not Detected (NotDetected); Coronavirus CoV-2 (COVID19)PCR Not Detected (NotDetected); Coronavirus HKU1 PCR Not Detected (NotDetected); Coronavirus NL63 PCR Not Detected (NotDetected); Coronavirus OC43PCR Not Detected (NotDetected); Human Metapneumovirus PCR Not Detected (NotDetected); Parainfluenza Virus 1 PCR Not Detected (NotDetected); Parainfluenza Virus 2 PCR Not Detected (NotDetected); Parainfluenza Virus 3 PCR Not Detected (NotDetected); Parainfluenza Virus 4 PCR Not Detected (NotDetected); Respiratory Syncytial VirusPCR Not Detected (NotDetected); Rhinovirus/Enterovirus PCR Not Detected (NotDetected)
[2024-12-15 12:34] VITALS: RESP 20
--- NOTE | 2024-12-15 13:41 | Communication Note ---
Date of Service: December 15, 2024 By CMS guidelines, a determination that the admission or continued stay is not medically necessary has been made by a member of the UR committee and adriana delacruz for this hospital stay, therefore a Code 44 will be completed and the Inpatient admission will be changed to outpatient.
--- NOTE | 2024-12-15 13:49 | Discharge Summary ---
Discharge Summary Date of Service December 15, 2024 Principal Dx & Hospital Course #1 = Principal Diagnosis (1) Acute kidney injury superimposed on CKD: (2) Acute hyperkalemia: (3) Fatigue: (4) PAC (premature atrial contraction): Plan The patient is a 74-year-old female with past medical history including CKD stage IV, chronic back pain, urinary incontinence, insulin-dependent diabetes mellitus type 2, anxiety, mild cognitive impairment, recurrent urinary tract infection, hypertension, dyslipidemia, and hypothyroidism. She presents to the emergency department with primary symptom of progressively worsening fatigue and generalized weakness over the past several days with cough and flulike symptoms. She had previously been having congestion, headache, body aches, and intermittent cough, which have improved. She had poor p.o. intake over the last 3 days as per daughter.. Laboratories in the emergency department revealed hyperkalemia 5.7, and worsening of creatinine from 2.09-2.81. She was noted to be having frequent PACs on monitor during this evaluation. She was then referred for evaluation for admission to [facility]. #Hyperkalemia-Potassium 5.7 on admission, ECG normal. She is noncompliant with her Lokelma at home. She was given calcium gluconate 1 g IV, 1 amp of D50, regular insulin 10 units IV in the ED and potassium now down to 4.8. Stressed the importance of taking Lokelma and will increase it to Saturday-her daughter will make sure that she takes it Follow BMP in 1 week as an outpatient #KEEGAN superimposed on CKD stage IV- Creatinine 2.81 on admission, baseline around 2.0-2.4. Creatinine improved to 2.6 with IV fluids given here in the ED. She was dehydrated from poor p.o. intake with recent viral illness Okay to continue as needed furosemide and Jardiance Continue calcitriol, cholecalciferol, ferrous sulfate, folic acid, magnesium oxide, and Lokelma. Follow BMP in 1 week with PCP #Viral illness-BioFire negative but patient with cough and cold, flulike symptoms for several days along with fatigue. Feeling better. CXR negative for pneumonia and lungs sound clear, vital signs normal - Supportive care at home #HTN/HLD Last echocardiogram on 05/20/2024 with ejection fraction 55-60%, unchanged since 03/16/2023. 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 for persistent hyperkalemia Continue rosuvastatin #Insulin-dependent diabetes mellitus type 2- Stable, continue home Lantus, Jardiance, NovoLog #GERD without esophagitis- Continue pantoprazole #Hyperthyroidism Continue methimazole DVT prophylaxis-heparin SQ Disposition-stable for discharge to home Notes For Next Care Provider Check BMP in 1 week Medication Changes From Visit Increase [facility] to 3 times a week Saturday Admission HPI Per Admitting Provider The patient is a 74-year-old female with past medical history including CKD stage IV, chronic back pain, urinary incontinence, insulin-dependent diabetes mellitus type 2, anxiety, mild cognitive impairment, recurrent urinary tract infection, hypertension, dyslipidemia, and hypothyroidism. She presents to the emergency department with primary symptom of progressively worsening fatigue and generalized weakness over the past several days. She had previously been having congestion, headache, body aches, and intermittent cough, which have resolved prior to today. Laboratories in the emergency department revealed hyperkalemia 5.7, and worsening of creatinine from 2.09-2.81. She was noted to be having frequent PACs on monitor during this evaluation. She was then referred for evaluation for admission to [facility]. Discharge Exam Constitutional WD/WN, vitals as above Eyes PERRL, conjunctivae normal, anicteric sclerae ENMT external ear and nose normal, oropharynx normal Neck trachea midline, no thyromegaly Respiratory normal respiratory effort, lungs clear to auscultation Cardiovascular RRR, no murmur, no edema Chest (Breasts) Chest: normal inspection of chest Gastrointestinal (Abdomen) normal bowel sounds, soft, nontender, no hepatosplenomegaly Musculoskeletal Extremities: extremities normal to inspection; no cyanosis and no clubbing Skin no rashes, warm and dry Neurologic moves all extremities and awake; no focal motor deficits Psychiatric A+Ox3, euthymic affect Lymphatic no lymphedema Discharge Plan Discharge Items Patient Disposition: Home - Self-Care Reason For Visit: KEEGAN ON CKD, HYPERKALEMIA Discharge Diagnosis: Acute kidney injury on CKD stage IV Hyperkalemia Viral illness Condition on Discharge: Good Activity: Resume your previous activity Non-emergency contact: Primary Care Provider Call non-emergency contact if: you have any medication questions and your symptoms worsen Follow-up/Referrals: Ramirez Villela CRNP [Primary Care Provider] - (Follow-up within 1-2 weeks) Diet: Low Potassium (2gm) Addtl Attending Provider Instructions: You were admitted with dehydration from your recent likely viral illness. Your potassium level was also high. You were given fluids and medications to bring your potassium down. It is important for you to take your Lokelma every Saturday and Saturday to keep your potassium levels down and to continue to eat a low potassium diet. Please have your primary care physician check your potassium and kidney function with a basic metabolic panel in 1 week. Please try to stay hydrated with fluids at home Pending Studies at Discharge: Yes (Blood cultures) Stand-Alone Forms: My [facility], Smoking Cessation Medications and DC Order Prescriptions: Continued ascorbic acid (vitamin C) [Vitamin C] 1,000 mg tablet 1 g PO DAILY cyanocobalamin (vitamin B-12) 1,000 mcg tablet 1,000 mcg PO QAM cholecalciferol (vitamin D3) 125 mcg (5,000 unit) capsule 125 mcg PO QAM (DME) Accu-Chek Guide test strips Strip See Rx Instructions .Route Qty: 100 5RF Rx Instructions: Test blood sugar TID amlodipine 10 mg tablet 10 mg PO HS Qty: 90 3RF pantoprazole 40 mg tablet,delayed release (DR/EC) 40 mg PO QAM Qty: 90 1RF venlafaxine [Effexor XR] 150 mg capsule,extended release 24hr 150 mg PO QAM Qty: 90 1RF methimazole 10 mg tablet 5 mg PO QAM Qty: 90 1RF insulin glargine [Lantus U-100 Insulin] 100 unit/mL solution 36 unit subcut QAM MDD 60 Qty: 20 6RF calcitriol 0.25 mcg capsule 0.25 mcg PO 3XWK Qty: 36 3RF Rx Instructions: Saturday, Saturday, Saturday in the morning labetalol 100 mg tablet 100 mg PO BID Qty: 60 5RF furosemide [Lasix] 20 mg tablet 20 mg PO DAILY PRN (Reason: leg swelling) Qty: 90 1RF Rx Instructions: ON HOLD magnesium oxide 400 mg (241.3 mg magnesium) tablet 400 mg PO DAILY Qty: 90 1RF ferrous sulfate [Feosol] 325 mg (65 mg iron) tablet 325 mg PO BID Qty: 60 5RF folic acid 1 mg tablet 1 mg PO QAM Qty: 30 1RF buspirone 15 mg tablet 15 mg PO BID Qty: 60 3RF (DME) lancets [Accu-Chek Softclix Lancets] Misc See Rx Instructions .Route Qty: 200 3RF Rx Instructions: As directed; BS TID (DME) blood-glucose meter [Accu-Chek Guide Glucose Meter] Misc See Rx Instructions .Route Qty: 1 0RF Rx Instructions: As directed; BS TID Jardiance 10 mg tablet 10 mg PO DAILY Qty: 30 2RF insulin aspart U-100 [Novolog FlexPen U-100 Insulin] 100 unit/mL (3 mL) insulin pen 1 sliding scale dose subcut DAILY MDD 40 Qty: 15 2RF Rx Instructions: Inject 8 units before first meal of the day (DME) pen needle, diabetic [CareFine Pen Needle] 32 gauge x 1/4" needle See Rx Instructions .Route Qty: 100 6RF Rx Instructions: Inject twice daily (DME) FreeStyle Darek 3 Sensor Device See Rx Instructions .Route Qty: 3 3RF Rx Instructions: As directed Procrit 40,000 unit/mL solution 40,000 unit subcut MONTHLY Rx Instructions: Hold for Hgb 10 or greater acetaminophen 500 mg Tablet 1,000 mg PO Q6H PRN (Reason: Pain) aspirin 81 mg Tablet,Delayed Release (Dr/Ec) 81 mg PO QAM Qty: 0 0RF Rx Instructions: buy over the counter, for stroke prevention rosuvastatin 20 mg tablet 20 mg PO QAM Rx Instructions: TAKE ONE TABLET BY MOUTH IN THE MORNING Changed Lokelma 10 gram Powder In Packet 10 g PO 3XWK Qty: 12 0RF Rx Instructions: Take on Saturday Discontinued lisinopril 10 mg tablet 10 mg PO DAILY Qty: 90 3RF Hold Instructions: Resume on 10/10/24. hold until Dr. Paige says it is ok to reusme Rx Instructions: ON HOLD Discharge Orders: Discharge Order (Routine); Ordered 12/15/24 Ordered By: Nelida Hernández Admission Data Admit Date/Time: 12/14/24 21:58 Attending Provider: Nelida Hernández Admit Provider: Bryan Garcia Primary Care Provider: Ramirez Villela Other Providers: Bryna Garcia Hospital Stay Data Consultations 12/14/24 21:28 ED Decision to Admit Stat Pending Results Patient Have Any Pending Studies at Discharge: Yes (Blood cultures) Discharge Instructions Given to Patient (Per Discharging Provider) You were admitted with dehydration from your recent likely viral illness. Your potassium level was also high. You were given fluids and medications to bring your potassium down. It is important for you to take your Lokelma every Saturday and Saturday to keep your potassium levels down and to continue to eat a low potassium diet. Please have your primary care physician check your potassium and kidney function with a basic metabolic panel in 1 week. Please try to stay hydrated with fluids at home Total Time Total Time Spent Total Time Spent (In Minutes): 35 minutes Total Time Includes: Examination of the Patient, Discharge Planning and Medication Reconciliation Coding Level of Care Code 64709 INP/OBS DISCH >30 MIN Diagnoses Acute kidney injury superimposed on CKD N17.9; N18.9 Acute hyperkalemia E87.5 Fatigue R53.83 PAC (premature atrial contraction) I49.1
[2024-12-15 14:13] VITALS: BP 141/81; PULSE 70; O2SAT 96
[2024-12-16] MEDS ORDERED: CALCITRIOL 0.25 MCG CAPSULE PO SCH (09:00)
[2024-12-17] MEDS ORDERED: SODIUM ZIRCONIUM CYCLOSILICATE 10 GM PACKET PO SCH (06:00)
== END 2024-12-15 14:08 | disposition home or self-care (01) | DRG 683 ==
LOC: ED 17:25 → INTOOBSV 21:58 → EDINP 21:58 → SUATTDRO 21:58 → EDINP 12-15 00:49

== ENCOUNTER 2024-12-22 23:32 | Inpatient (IN) ==
[2024-12-22] MEDS: ALBUT/IPRATROP 3MG/0.5MG NEB 3 ML VIAL NEB ONE (23:52)
[2024-12-23 00:04] LABS: Base Excess VBG -8.6 mEq/L; HCO3 VBG 17 mmol/L; Oxygen Saturation VBG 62.5 %; PCO2 VBG 37 mmHg (38-50); PO2 VBG 36 mmHg; pH VBG 7.28 (7.36-7.41)
[2024-12-23 00:09] LABS: Hematocrit (blood only) 26.5 % (37.0-47.0); Hemoglobin 8.2 g/dl (12.0-16.0); Immature Granulocytes # (auto) 0.08 K/uL (0.01-0.20); Immature Granulocytes % (auto) 0.6 %; Mean Corpuscular Hemoglobin 30.6 pg (25.0-34.0); Mean Corpuscular Volume 98.9 fL (80.0-100.0); Platelet Count 448 K/uL (130-400); RDW Standard Deviation 48.0 fL (36.4-46.3); Red Blood Count 2.68 M/uL (4.20-5.40); White Blood Count 13.45 K/ul (4.8-10.8)
--- NOTE | 2024-12-23 00:22 | Emergency Department Note ---
History of Present Illness General Chief complaint: Respiratory Distress Stated complaint: SHORTNESS OF BREATH, WHEEZING Time Seen by Provider: 12/22/24 23:37 History of Present Illness Maximum Pain Intensity: 0 This is a 74-year-old female presenting to the emergency department for evaluation of shortness of breath. Patient arrives via EMS from home where she was found to be in the low 80% on room air. Patient was given a DuoNeb prehospital which seems to have improved her pulse oximetry to 86 to 88%. Patient was recently admitted to this facility where she was found to be in KEEGAN with associated hyperkalemia and elevated procalcitonin. Patient was admitted and ultimately discharged with follow-up with her PCP 2 days afterwards. Patient reached out to her PCP today due to her breathing symptoms and has taken 2 doses of doxycycline that were prescribed today. Patient has not had distinct fever or chills. No difficulty going to the bathroom. Primary concern is her breathing difficulty. She has not taken her Lasix in 2 weeks because of her kidney injury. Home Medications Medication Instructions Recorded Confirmed Type acetaminophen 500 mg tablet 1,000 mg PO Q6H PRN Pain 06/19/21 12/23/24 History lancets (Accu-Chek Softclix #200 ea 04/27/22 12/23/24 Rx Lancets) blood sugar diagnostic (Accu-Chek #100 ea 01/30/23 12/23/24 Rx Guide test strips) blood-glucose meter (Accu-Chek #1 ea 02/13/23 12/23/24 Rx Guide Glucose Meter) aspirin 81 mg tablet,delayed 81 mg PO QAM #0 tabs 03/20/23 12/23/24 Rx release ascorbic acid (vitamin C) 1,000 mg 1 g PO DAILY 11/26/23 12/23/24 History tablet (Vitamin C) cholecalciferol (vitamin D3) 125 125 mcg PO QAM 11/26/23 12/23/24 History mcg (5,000 unit) capsule cyanocobalamin (vitamin B-12) 1,000 mcg PO QAM 11/26/23 12/23/24 History 1,000 mcg tablet blood-glucose sensor (FreeStyle #3 ea 11/28/23 12/23/24 Rx Darek 3 Sensor device) amlodipine 10 mg tablet 10 mg PO HS #90 tabs 01/03/24 12/23/24 Rx pantoprazole 40 mg tablet,delayed 40 mg PO QAM #90 tabs 03/13/24 12/23/24 Rx release methimazole 10 mg tablet 5 mg (1/2 x 10 mg) PO QAM #90 tabs 06/08/24 12/23/24 Rx venlafaxine 150 mg 150 mg PO QAM #90 caps 06/08/24 12/23/24 Rx capsule,extended release 24 hr (Effexor XR) calcitriol 0.25 mcg capsule 0.25 mcg PO 3XWK #36 caps 08/04/24 12/23/24 Rx labetalol 100 mg tablet 100 mg PO BID #60 tabs 09/30/24 12/23/24 Rx empagliflozin 10 mg tablet 10 mg PO DAILY #30 tabs 10/02/24 12/23/24 Rx (Jardiance) insulin aspart U-100 100 unit/mL 1 sliding scale dose subcut DAILY 10/07/24 12/23/24 Rx (3 mL) subcutaneous pen (Novolog #15 mL FlexPen U-100 Insulin aspart) pen needle, diabetic 32 gauge x #100 ea 10/07/24 12/23/24 Rx 1/4" (CareFine Pen Needle) ferrous sulfate 325 mg (65 mg 325 mg PO BID #60 tabs 11/17/24 12/23/24 Rx iron) tablet (Feosol) folic acid 1 mg tablet 1 mg PO QAM #30 tabs 11/17/24 12/23/24 Rx furosemide 20 mg tablet (Lasix) 20 mg PO DAILY PRN leg swelling 11/17/24 12/23/24 Rx #90 tabs magnesium oxide 400 mg (241.3 mg 400 mg PO DAILY #90 tabs 11/17/24 12/23/24 Rx magnesium) tablet buspirone 15 mg tablet 15 mg PO BID #60 tabs 11/18/24 12/23/24 Rx epoetin rosa 40,000 unit/mL 40,000 unit subcut MONTHLY 12/10/24 12/23/24 History injection solution (Procrit) rosuvastatin 20 mg tablet 20 mg PO QAM 12/14/24 12/23/24 History sodium zirconium cyclosilicate 10 10 g PO 3XWK #12 ea 12/15/24 12/23/24 Rx gram oral powder packet (kelin) doxycycline hyclate 100 mg tablet 100 mg PO BID 7 days #14 tabs 12/21/24 12/23/24 Rx insulin glargine 100 unit/mL 44 unit (0.44 mL) subcut QAM #20 mL 12/21/24 12/23/24 Rx subcutaneous solution (Lantus U-100 Insulin) Allergies Allergy/AdvReac Type Severity Reaction Status Date / Time No Known Allergies Allergy Verified 12/17/24 14:06 Past Med/Surg History Problem List (Updated 12/23/24 @ 04:52 by Rickie Heredia PA-C) Rhinovirus infection (Acute) Acute respiratory failure with hypoxia (Acute) Acute on chronic heart failure with preserved ejection fraction (HFpEF) (Acute) PAC (premature atrial contraction) Fatigue (Acute) Acute hyperkalemia (Acute) Acute kidney injury superimposed on CKD Acute hyperkalemia Chronic bilateral low back pain with sciatica Orthostatic hypotension (Chronic) Urinary incontinence 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 joint pain Obesity Chronic low back pain Spinal stenosis, lumbar region with neurogenic claudication Right knee pain Major depressive disorder, recurrent, in partial remission Headaches due 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 Chronic kidney disease, stage IV (severe) Post concussive syndrome TIA (transient ischemic attack) (Acute) Anxiety Diastolic CHF MCI (mild cognitive impairment) Early satiety Iron deficiency anemia Secondary hyperparathyroidism Recurrent UTI Ketonuria (Acute) Diabetic nephropathy associated with type 2 diabetes mellitus Left cataract Vitamin D deficiency Nephrotic syndrome GERD without esophagitis Arthritis Hypertension Dyslipidemia HNP (herniated nucleus pulposus), lumbar Hyperthyroidism Medical History Leukocytosis Word finding difficulty Elevated troponin Vasovagal episode Melanoma of nose Major depressive disorder, recurrent severe without psychotic features Surgical History Status post trigger finger release History of repair of left rotator cuff History of repair of right rotator cuff History of colonoscopy History of melanoma excision History of tooth extraction all teeth removed History of bilateral cataract extraction S/P tonsillectomy S/P tubal ligation S/P cholecystectomy Family History Father Prostate cancer Diabetes Myocardial infarction Lung cancer Mother Diabetes Alzheimer disease Myocardial infarction Hypertension Brother COPD (chronic obstructive pulmonary disease) Other No family history of adverse response to anesthesia Denies family history of Ovarian cancer Breast cancer Colorectal cancer Social History Smoking Status: Never smoker Second Hand Exposure: No; Hx Alcohol Use: No Hx Substance Use: No Preferred Language: Nigerian Communication Ability: Effective Visual Impairment: No Limitations Hearing Ability: Normal [employer] 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 and [employer] Feels Safe at Home: Yes Childhood Exposure to Second-Hand Smoke: No Diet: regular caffeine: Yes (Soda x 10 cans per day.) during the past year weight has: remained stable Dental Care, Regularly: No Seatbelt Use: always Sunscreen Use: No Assistive Devices: Bedside Commode, Cane and Walker Review of Systems A total of 10 systems reviewed and were otherwise negative Physical Exam Vital Signs Vital Signs - 24 hr 12/22/24 23:40 12/22/24 23:40 12/22/24 23:40 Temperature 36.9 C Temperature Source Oral Pulse Rate 77 Pulse Rate [Right Finger] Pulse Rate from SpO2 Sensor Pulse Rhythm Irregular Pulse Strength Normal Respiratory Rate 26 H Respiratory Effort / Characteristics Spontaneous Short of Breath Spontaneous Short of Breath Respiratory Depth Deep Normal Respiratory Pattern Tachypnea Tachypnea Blood Pressure 142/103 H Blood Pressure Mean 116 Blood Pressure Position Sitting Pulse Oximetry 91 91 Oxygen Delivery Method Room Air Room Air Room Air Sepsis Recent Fever Within 48 Hours No Sepsis New/Unexplained Change in Mental Status No Sepsis Action Taken by Nursing No Action Required 12/22/24 23:43 12/22/24 23:52 12/22/24 23:58 Temperature Temperature Source Pulse Rate 80 Pulse Rate [Right Finger] 76 Pulse Rate from SpO2 Sensor Pulse Rhythm Pulse Strength Respiratory Rate 16 Respiratory Effort / Characteristics Non-Labored Spontaneous Respiratory Depth Respiratory Pattern Blood Pressure Blood Pressure Mean Blood Pressure Position Pulse Oximetry 91 86 L Oxygen Delivery Method Room Air Room Air Sepsis Recent Fever Within 48 Hours Sepsis New/Unexplained Change in Mental Status Sepsis Action Taken by Nursing 12/23/24 00:00 12/23/24 00:31 12/23/24 01:00 Temperature Temperature Source Pulse Rate 77 76 83 Pulse Rate [Right Finger] Pulse Rate from SpO2 Sensor 117 H 124 H Pulse Rhythm Pulse Strength Respiratory Rate 20 20 23 Respiratory Effort / Characteristics Respiratory Depth Respiratory Pattern Blood Pressure 147/58 H 144/55 H 134/93 Blood Pressure Mean 87 109 106 Blood Pressure Position Pulse Oximetry 100 100 91 Oxygen Delivery Method Nebulizer Nebulizer Room Air Sepsis Recent Fever Within 48 Hours Sepsis New/Unexplained Change in Mental Status Sepsis Action Taken by Nursing VITALS: Vitals are noted on the nurse's note and reviewed by myself. Vital signs stable. GENERAL: Chronically ill-appearing female who is pleasant HEAD: Normocephalic atraumatic. NECK: Supple without nuchal rigidity. No lymphadenopathy. No thyromegaly. Cervical spine is nontender. HEART: Regular rate and rhythm LUNGS: Diffuse wheezing and rhonchi throughout ABDOMEN: Positive normal bowel sounds x 4. Soft, nontender, without masses or organomegaly. MUSCULOSKELETAL: No muscle atrophy, erythema, or edema noted. NEURO: Patient was alert and oriented to person place and time. CN II through XII grossly intact. No focal neurological deficits. GCS 15. Course Administered Medications Discontinued Medications Albuterol (Albut/Ipratrop 3mg/0.5mg Neb 3 Ml Vial) 12 ml NEB ONE ONE; Protocol Stop: 12/22/24 23:44 Last Admin: 12/22/24 23:52 Dose: 12 ml Documented By: MACY Furosemide (Furosemide 40 Mg/4 Ml Vial) 40 mg IV ONE ONE Stop: 12/23/24 00:44 Last Admin: 12/23/24 01:02 Dose: 40 mg Documented By: COLETTE Medical Decision Making Differential Diagnosis Differential diagnosis includes, but is not limited to: Myocardial infarction, dysrhythmia, pericarditis, pneumothorax, aortic aneurysm/dissection, DVT/PE, anxiety, GERD, PUD, electrolyte imbalance, thyroid disorder, pneumonia, bronchitis, pancreatitis, and others Laboratory Data 12/22/24 23:43 12/22/24 23:43 Lab Results 12/22/24 12/22/24 12/22/24 Range/Units 23:43 23:45 23:46 WBC 13.45 H (4.8-10.8) K/ul RBC 2.68 L (4.20-5.40) M/uL Hgb 8.2 L (12.0-16.0) g/dl Hct 26.5 L (37.0-47.0) % MCV 98.9 (80.0-100.0) fL MCH 30.6 (25.0-34.0) pg MCHC 30.9 L (32.0-36.0) g/dL RDW Std Deviation 48.0 H (36.4-46.3) fL RDW Coeff of Emil 13.4 (11.5-14.5) % Plt Count 448 H (130-400) K/uL MPV 10.2 (9.4-12.4) fL Immature Gran % (Auto) 0.6 % Neut % (Auto) 69.5 % Lymph % (Auto) 11.5 % [place] % (Auto) 10.6 % Eos % (Auto) 7.2 % Baso % (Auto) 0.6 % Neut # (Auto) 9.34 H (1.40-6.50) K/uL Lymph # (Auto) 1.55 (1.20-3.40) K/uL [place] # (Auto) 1.43 H (0.11-0.59) K/uL Eos # (Auto) 0.97 H (0.00-0.50) K/uL Baso # (Auto) 0.08 (0.00-0.20) K/uL Immature Gran # (Auto) 0.08 (0.01-0.20) K/uL VBG pH 7.28 L (7.36-7.41) VBG pCO2 37 L (38-50) mmHg VBG pO2 36 mmHg VBG HCO3 17 mmol/L VBG O2 Saturation 62.5 % VBG Base Excess -8.6 mEq/L Sodium 139 (136-145) mmol/L Potassium 4.3 (3.5-5.1) mmol/L Chloride 111 H (98-107) mmol/L Carbon Dioxide 17 L (21-32) mmol/L Anion Gap 11 (3-11) BUN 46 H (6-23) mg/dl Creatinine 2.41 H (0.6-1.2) mg/dl Est Cr Clr Drug Dosing 20.1 ml/min eGFR 20.45 BUN/Creatinine Ratio 19.1 (10-20) Glucose 114 H (70-99(Fasting)) mg/dl Calcium 8.8 (8.6-10.3) mg/dl Magnesium 2.1 (1.7-2.4) mg/dl Total Bilirubin 0.3 (0.2-1.0) mg/dl AST 10 L (13-39) U/L ALT 7 (7-52) U/L Alkaline Phosphatase 65 (34-104) U/L Troponin I High Sens 22.5 H (0-14) pg/ml B-Natriuretic Peptide 961 H (0-100) pg/ml Total Protein 7.0 (6.0-8.3) gm/dl Albumin 3.1 L (3.4-5.0) gm/dl Globulin 3.9 (2.5-4.0) gm/dl Albumin/Globulin Ratio 0.8 L (0.9-2) Lipase 10 L (11-82) U/L Procalcitonin 0.23 (0-0.5) ng/ml Adenovirus (PCR) Not Detected (NotDetected) B. pertussis DNA (PCR) Not Detected (NotDetected) B.parapertussis DNA PCR Not Detected (NotDetected) C. pneumoniae DNA (PCR) Not Detected (NotDetected) Coronavirus OC43 (PCR) Not Detected (NotDetected) Coronavirus HKU1 (PCR) Not Detected (NotDetected) Coronavirus 229E (PCR) Not Detected (NotDetected) SARS-CoV-2 (PCR) Not Detected (NotDetected) Coronavirus NL63 (PCR) Not Detected (NotDetected) Human Metapneumovir PCR Not Detected (NotDetected) Influenza Type A (PCR) Not Detected (NotDetected) Influenza Type B (PCR) Not Detected (NotDetected) M. pneumoniae (PCR) Not Detected (NotDetected) Parainfluenza 1 (PCR) Not Detected (NotDetected) Parainfluenza 2 (PCR) Not Detected (NotDetected) Parainfluenza 3 (PCR) Not Detected (NotDetected) Parainfluenza 4 (PCR) Not Detected (NotDetected) RSV (PCR) Not Detected (NotDetected) Entero/Rhino (PCR) DETECTED A (NotDetected) Imaging Data Radiologist's Impression: Chest X-Ray 12/22/24 23:43 Exam(s): XR CXR 1 VIEW EXAM: XR Chest, 1 View CLINICAL HISTORY: Chest Pain, nonspecific. TECHNIQUE: Frontal view of the chest. COMPARISON: Chest radiograph 12/14/2024 FINDINGS: Lungs: Right lower lobe pneumonia. Pleural space: Small right pleural effusion and question small left pleural effusion. No pneumothorax. Heart: Cardiomegaly. Mediastinum: Unremarkable. Normal mediastinal contour. Bones/joints: There are degenerative changes of the spine. No acute fracture. IMPRESSION: 1. Right lower lobe pneumonia. 2. Small right pleural effusion and question small left pleural effusion. 3. Cardiomegaly. Electronically signed by: Idalia Edge MD 12/23/24 03:27 AM MDM Narrative Physical exam and history were performed. Nursing notes, EMR, and Medication List were personally reviewed. No social concerns were identified as barriers to patients care. History was provided by the Patient and EMS. Patient appears to have difficulty breathing bring her to the ER. She has a fairly complicated medical history. IV access was established and labs were obtained. Patient is diffusely wheezing with rhonchi on exam and was given an hour-long DuoNeb. She evidently did receive Solu-Medrol prehospital. Chest x- ray was performed. BioFire gathered. Patient's blood work is as above and was reviewed. She does have a slightly elevated white count of 13,000. She is anemic, which is chronic. Creatinine is 2.41. BNP elevated over 900. Transaminases not diagnostic. Troponin is slightly elevated at 21, which is felt to be from demand. Rhinovirus did return on the BioFire. Chest x-ray suggests pneumonia which may be viral in nature. Escalation of care was considered, and felt to be necessary. Patient is doing much better after an hour-long DuoNeb, however she is desaturating without oxygen. Case was discussed with the on-call hospitalist team. Patient was given IV Lasix x 1 dose here in the ER to assist with fluid overload. Please see their dictation for further patient course, plan, disposition. The chart was completed utilizing [employer] Voice Recognition Software. Grammatical errors, random word insertions, pronoun errors, and incomplete sentences are an occasional consequence of this system due to software limitations, ambient noise, and hardware issues. Any formal questions or concerns about the content, text, or information contained within the body of this dictation should be directly addressed to the provider for clarification. Impression & Plan Acute on chronic heart failure with preserved ejection fraction (HFpEF), Acute respiratory failure with hypoxia, Rhinovirus infection Discharge Plan Visit Data Chief Complaint: Respiratory Distress Stated Complaint: SHORTNESS OF BREATH, WHEEZING ED Provider: Yakov Jarrell ED Midlevel Provider: Rickie Heredia Discharge Problem: Acute on chronic heart failure with preserved ejection fraction (HFpEF), Acute respiratory failure with hypoxia, Rhinovirus infection Patient Disposition: Admitted As Inpatient Condition: Fair Discharge Instructions Interventions: ED Discharge Assessment Last Done: 12/23/24 02:54
[2024-12-23 00:27] LABS: Alanine Aminotransferase 7.0 U/L (7-52); Albumin Globulin Ratio 0.8 (0.9-2); Alkaline Phosphatase 65.0 U/L (34-104); Anion Gap 11.0 (3-11); Bilirubin,Total 0.3 mg/dl (0.2-1.0); Blood Urea Nitrogen 46.0 mg/dl (6-23); Calcium 8.8 mg/dl (8.6-10.3); Carbon Dioxide 17.0 mmol/L (21-32); Chloride 111.0 mmol/L (98-107); Creatinine Clr Calc Pharmacy 20.1 ml/min; Globulin 3.9 gm/dl (2.5-4.0); Glucose 114.0 mg/dl (70-99(Fasting)); Lipase 10.0 U/L (11-82); Magnesium 2.1 mg/dl (1.7-2.4); Potassium 4.3 mmol/L (3.5-5.1); Sodium 139.0 mmol/L (136-145); Total Protein 7.0 gm/dl (6.0-8.3)
--- NOTE | 2024-12-23 01:00 | History & Physical Report ---
Date of Service December 23, 2024 Assessment & Plan (1) Acute on chronic heart failure with preserved ejection fraction (HFpEF): (2) Acute respiratory failure with hypoxia: (3) Diabetes mellitus, type 2: Plan 74-year-old female PMHx CKD stage IV, chronic back pain, urinary incontinence, insulin-dependent T2DM, anxiety, MCI, recurrent UTIs, HTN, dyslipidemia, hypothyroidism, recurrent hyperkalemia, and GERD with most recent hospital admission 12/14/2024 until 12/15/2024 for hyperkalemia and KEEGAN who is presenting for shortness of breath x 1 week, worsened the night of arrival. ED evaluation is significant for mild leukocytosis and anemia, near baseline renal function, elevated troponin without ischemic changes on EKG, and BNP of 961. Likely acute on chronic HF leading to hypoxia. Admission for such. #Acute hypoxic respiratory failure/Acute on chronic HFpEF/Rhinovirus Presenting w/ SOB, with history of CHF. At home, pt is on Jardiance (HF/DM) and furosemide 20mg prn at home but has not been taking. Furosemide 40mg IV in ED. - CBC leukocytosis 13.45; VBGs pH 7.28, pCO2 37; CMP CO2 17, AG 11; BNP 961; troponin 22.5, pending repeat; procal 0.23 - CBC am - CXR pending official read - BioFire (+) entero/rhinovirus - Echo 05/2024 EF 55-60% - pending repeat - O2 prn - none at baseline - FV + IS - DuoNeb moe - Lasix 40mg IV x 1 in ED -- adjust dosing pending volume status in am - Deferred abx at time of admission #T2DM H/o DMT2; At home regimen includes Jardiance, insulin aspart SS, insulin glargine 44U am. - Glucose at admission 114; Most recent A1C 12/2024 @ 8.3% - Hold home regimen except Jardiance (HF) - SSI with target BSG range 110-150mg/dL, CF 25, carb ratio 10 - Lantus 20U BID - BSG ACHS - Adjust regimen as needed #CKD stage IV/Nephrotic syndrome Baseline Cr 2.0-2.4. Was continued on furosemide and Jardiance per PCP note on 12/17/2024. Follows with nephrology, most recent visit being 12/03/2024. - Cr at admission 2.41, Cl 111, K WNL - UA pending - BMP am #Chronic hyperkalemia- K at admission 4.3; on Lokelma at baseline (M/W/) - continue, BMP am #HTN- Amlodipine, labetalol - continue #Psych- Buspirone, venlafaxine - continue #RACHANA- In setting of CKD, follows with nephrology; H/H at admission 8.2/26.5; Ferrous sulfate, folate, Procrit monthly - continue ferrous sulfate, CBC am #Hyperthyroidism- Methimazole - continue #GERD- Pantoprazole - continue #HLD- ASA, Rosuvastatin - continue Dispo: Admit, PCU VTE Prophylaxis: SCDs -- add chemical prophylaxis if prolonged stay This document was dictated utilizing [employer]uaile[employer]. Please excuse any grammatical errors that may be secondary to use of this software. Admission and Anticipated Discharge Date Admission Date: 12/23/2024 History of Present Illness Chief Complaint: SOB Primary Care Provider: LISA Calle 74-year-old female PMHx CKD stage IV, chronic back pain, urinary incontinence, insulin-dependent T2DM, anxiety, MCI, recurrent UTIs, HTN, dyslipidemia, hypothyroidism, recurrent hyperkalemia, and GERD with most recent hospital admission 12/14/2024 until 12/15/2024 for hyperkalemia and KEEGAN who is presenting for shortness of breath x 1 week, worsened the night of arrival. Reports cough x 1 week that is nonproductive with occasional rhinorrhea that is clear in nature. Denies fever or chills. Has had a headache from coughing as well as abdominal soreness from coughing. Has had some urinary incontinence because she is coughing so much. Admits to occasional SOB that is worse in the evening, around [id number] per patient. She continues to have hacking throughout the night. Laying flat does not worsen her breathing. He was exposed to a family friend who tested positive for rhinovirus. Denies chest pain, palpitations, abdominal pain, N/V/D/C, numbness/tingling, LUTS, F/C, additional URI symptoms, weakness, or falls. Has not been taking Lasix at all. Took all of her day and night time medications. ED evaluation reveals CBC with leukocytosis 13.45, RBC 2.68, H&H 8.2/26.5, platelets 448; VBG's pH 7.28, pCO2 37; CMP chloride 111, CO2 17, creatinine 2.41, BUN 46, glucose 114, AST 10, albumin 3.1, ratio 0.8; troponin 22.5, pending repeat; BNP 961; lipase 10; procalcitonin 0.23; CXR pending official read; EKG undetermined rhythm at 83 bpm.; Provided with albuterol 12 mL neb x [address] see Dr[address] Delgado's attestation for adjustments/additions to treatment plan. Allergies Allergy/AdvReac Type Severity Reaction Status Date / Time No Known Allergies Allergy Verified 12/17/24 14:06 Home Medications Medication Instructions Recorded Confirmed Type acetaminophen 500 mg tablet 1,000 mg PO Q6H PRN Pain 06/19/21 12/23/24 History lancets (Accu-Chek Softclix #200 ea 04/27/22 12/23/24 Rx Lancets) blood sugar diagnostic (Accu-Chek #100 ea 01/30/23 12/23/24 Rx Guide test strips) blood-glucose meter (Accu-Chek #1 ea 02/13/23 12/23/24 Rx Guide Glucose Meter) aspirin 81 mg tablet,delayed 81 mg PO QAM #0 tabs 03/20/23 12/23/24 Rx release ascorbic acid (vitamin C) 1,000 mg 1 g PO DAILY 11/26/23 12/23/24 History tablet (Vitamin C) cholecalciferol (vitamin D3) 125 125 mcg PO QAM 11/26/23 12/23/24 History mcg (5,000 unit) capsule cyanocobalamin (vitamin B-12) 1,000 mcg PO QAM 11/26/23 12/23/24 History 1,000 mcg tablet blood-glucose sensor (FreeStyle #3 ea 11/28/23 12/23/24 Rx Darek 3 Sensor device) amlodipine 10 mg tablet 10 mg PO HS #90 tabs 01/03/24 12/23/24 Rx pantoprazole 40 mg tablet,delayed 40 mg PO QAM #90 tabs 03/13/24 12/23/24 Rx release methimazole 10 mg tablet 5 mg (1/2 x 10 mg) PO QAM #90 tabs 06/08/24 12/23/24 Rx venlafaxine 150 mg 150 mg PO QAM #90 caps 06/08/24 12/23/24 Rx capsule,extended release 24 hr (Effexor XR) calcitriol 0.25 mcg capsule 0.25 mcg PO 3XWK #36 caps 08/04/24 12/23/24 Rx labetalol 100 mg tablet 100 mg PO BID #60 tabs 09/30/24 12/23/24 Rx empagliflozin 10 mg tablet 10 mg PO DAILY #30 tabs 10/02/24 12/23/24 Rx (Jardiance) insulin aspart U-100 100 unit/mL 1 sliding scale dose subcut DAILY 10/07/24 12/23/24 Rx (3 mL) subcutaneous pen (Novolog #15 mL FlexPen U-100 Insulin aspart) pen needle, diabetic 32 gauge x #100 ea 10/07/24 12/23/24 Rx 1/4" (CareFine Pen Needle) ferrous sulfate 325 mg (65 mg 325 mg PO BID #60 tabs 11/17/24 12/23/24 Rx iron) tablet (Feosol) folic acid 1 mg tablet 1 mg PO QAM #30 tabs 11/17/24 12/23/24 Rx furosemide 20 mg tablet (Lasix) 20 mg PO DAILY PRN leg swelling 11/17/24 12/23/24 Rx #90 tabs magnesium oxide 400 mg (241.3 mg 400 mg PO DAILY #90 tabs 11/17/24 12/23/24 Rx magnesium) tablet buspirone 15 mg tablet 15 mg PO BID #60 tabs 11/18/24 12/23/24 Rx epoetin rosa 40,000 unit/mL 40,000 unit subcut MONTHLY 12/10/24 12/23/24 History injection solution (Procrit) rosuvastatin 20 mg tablet 20 mg PO QAM 12/14/24 12/23/24 History sodium zirconium cyclosilicate 10 10 g PO 3XWK #12 ea 12/15/24 12/23/24 Rx gram oral powder packet (Lokelma) doxycycline hyclate 100 mg tablet 100 mg PO BID 7 days #14 tabs 12/21/24 12/23/24 Rx insulin glargine 100 unit/mL 44 unit (0.44 mL) subcut QAM #20 mL 12/21/24 12/23/24 Rx subcutaneous solution (Lantus U-100 Insulin) Past Med/Surg History Problem List (Updated 12/23/24 @ 01:41 by Paulino Smith PA-C) Acute on chronic heart failure with preserved ejection fraction (HFpEF) PAC (premature atrial contraction) Fatigue (Acute) Acute hyperkalemia (Acute) Acute kidney injury superimposed on CKD Acute hyperkalemia Chronic bilateral low back pain with sciatica Orthostatic hypotension (Chronic) Urinary incontinence 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 joint pain Obesity Chronic low back pain Spinal stenosis, lumbar region with neurogenic claudication Right knee pain Major depressive disorder, recurrent, in partial remission Headaches due 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 Chronic kidney disease, stage IV (severe) Post concussive syndrome TIA (transient ischemic attack) (Acute) Anxiety Diastolic CHF MCI (mild cognitive impairment) Early satiety Iron deficiency anemia Secondary hyperparathyroidism Recurrent UTI Ketonuria (Acute) Diabetic nephropathy associated with type 2 diabetes mellitus Left cataract Vitamin D deficiency Nephrotic syndrome GERD without esophagitis Arthritis Hypertension Dyslipidemia HNP (herniated nucleus pulposus), lumbar Hyperthyroidism Medical History Leukocytosis Word finding difficulty Elevated troponin Vasovagal episode Melanoma of nose Major depressive disorder, recurrent severe without psychotic features Surgical History Status post trigger finger release History of repair of left rotator cuff History of repair of right rotator cuff History of colonoscopy History of melanoma excision History of tooth extraction all teeth removed History of bilateral cataract extraction S/P tonsillectomy S/P tubal ligation S/P cholecystectomy Family History Father Prostate cancer Diabetes Myocardial infarction Lung cancer Mother Diabetes Alzheimer disease Myocardial infarction Hypertension Brother COPD (chronic obstructive pulmonary disease) Other No family history of adverse response to anesthesia Denies family history of Ovarian cancer Breast cancer Colorectal cancer Social History Smoking Status: Never smoker Second Hand Exposure: No; Do You Dip or Chew Tobacco: No; Hx Alcohol Use: No Hx Substance Use: No Preferred Language: Iranian Communication Ability: Effective Communication Ability Comment: Reports difficulty reading now r/t dizziness Visual Impairment: No Limitations Hearing Ability: Normal Drier Unloader Required: No Beliefs That Will Affect Care: None marital status: / Current Living Situation: Family Current Living Situation Comment: lives with daughter gray current occupational status: retired current occupation: retired - worked at [email or web address] and [employer] Feels Safe at Home: Yes Childhood Exposure to Second-Hand Smoke: No Diet: regular caffeine: Yes (Soda x 10 cans per day.) during the past year weight has: remained stable Dental Care, Regularly: No Seatbelt Use: always Sunscreen Use: No Assistive Devices: Bedside Commode, Cane and Walker Review of Systems Review of Systems: All systems reviewed & are unremarkable except as noted in Subjective Physical Exam Physical Exam: General: No acute distress Skin: Warm and dry, appears pale Head: Normocephalic, atraumatic Eyes: PERRL, conjunctivae clear, sclera non-icteric ENT: External ear and ear canal without swelling; nose atraumatic; fair d entition, tongue normal appearance, pharynx normal Neck: Supple, no LAD Cardio: RRR, murmur auscultated, no G/R, S1 and S2 normal Resp: O2 via NC; No respiratory distress, diffuse wheezing throughout, hacking cough Abdomen: Soft, symmetric, nontender; No masses or hepatosplenomegaly; Bowel sounds normoactive MSK: No deformities; pulses palpable and equal; minimal BLE edema. Neuro: Awake, alert; Sensation intact bilaterally; CN grossly intact Psych: Appropriate mood and affect; good judgement and insight. Daughter is present in room at time of visit. Results & Data Results & Data Vital Signs (Past 12 Hours) Vital Signs Temp Pulse Pulse Resp BP Pulse Ox O2 Del Method 12/23/24 00:31 76 20 144/55 H 100 Nebulizer 12/23/24 00:00 77 20 147/58 H 100 Nebulizer 12/22/24 23:58 80 12/22/24 23:52 76 16 86 L Room Air 12/22/24 23:43 91 Room Air 12/22/24 23:40 91 Room Air 12/22/24 23:40 36.9 C 77 26 H 142/103 H 91 Room Air 12/22/24 23:40 Room Air Laboratory Results 12/22/24 12/22/24 12/22/24 23:46 23:45 23:43 WBC 13.45 H RBC 2.68 L Hgb 8.2 L Hct 26.5 L MCV 98.9 MCH 30.6 MCHC 30.9 L RDW Std Deviation 48.0 H RDW Coeff of Emil 13.4 Plt Count 448 H MPV 10.2 Immature Gran % (Auto) 0.6 Neut % (Auto) 69.5 Lymph % (Auto) 11.5 Holt % (Auto) 10.6 Eos % (Auto) 7.2 Baso % (Auto) 0.6 Neut # (Auto) 9.34 H Lymph # (Auto) 1.55 Holt # (Auto) 1.43 H Eos # (Auto) 0.97 H Baso # (Auto) 0.08 Immature Gran # (Auto) 0.08 VBG pH 7.28 L VBG pCO2 37 L VBG pO2 36 VBG HCO3 17 VBG O2 Saturation 62.5 VBG Base Excess -8.6 Sodium 139 Potassium 4.3 Chloride 111 H Carbon Dioxide 17 L Anion Gap 11 BUN 46 H Creatinine 2.41 H Est Cr Clr Drug Dosing 20.1 eGFR 20.45 BUN/Creatinine Ratio 19.1 Glucose 114 H Calcium 8.8 Magnesium 2.1 Total Bilirubin 0.3 AST 10 L ALT 7 Alkaline Phosphatase 65 Troponin I High Sens 22.5 H B-Natriuretic Peptide 961 H Total Protein 7.0 Albumin 3.1 L Globulin 3.9 Albumin/Globulin Ratio 0.8 L Lipase 10 L Procalcitonin 0.23 Medications Administered Albuterol 12 mL neb x 1 Furosemide 40mg IV ECG Additional Comments: Undetermined rhythm 83 bpm, QRS 80, QT/QTc 372/435, PRT*/41/47 Code Status & VTE Plan Code Status DNR/DNI Supervising Physician Co-Signing Physician Notes Patient seen and examined, chart reviewed, case discussed with TESS Smith and I agree with the assessment and plan as above Patient with severe cough, inability to sleep last night Clear nasal congestion On exam she is resting comfortably On NC 3L/min with adequate oxygenation - no prior use of O2 Coarse breath sounds in bilateral bases with end-expiratory wheezing +S1/S2 irregular - PACs on monitor No edema Labs and images reviewed WBC=13.45 Stable anemia, stable CKD +Enterovirus/Rhinovirus PZC=779 Assessment/Plan -Lasix 40mg IV given -Supportive care for enterovirus -Droplet isolation for duration of illness -Remainder as above PG Care Time/CCT Total # of Minutes Spent Total Time Spent with Patient: Total time spent is greater than 50% in coordination of care (as documented) at patient's floor/unit and/or counseling patient: Coding Level of Care Code 05332 INT INP/OBS CARE 3/75MIN Diagnoses Acute on chronic heart failure with preserved ejection fraction (HFpEF) I50.33 Acute respiratory failure with hypoxia J96.01 Diabetes mellitus, type 2 E11.9
[2024-12-23] MEDS: FUROSEMIDE 40 MG/4 ML VIAL IV ONE (01:02)
[2024-12-23 02:10] LABS: Chlamydia pneumoniae PCR Not Detected (NotDetected); Coronavirus 229E PCR Not Detected (NotDetected); Coronavirus CoV-2 (COVID19)PCR Not Detected (NotDetected); Coronavirus HKU1 PCR Not Detected (NotDetected); Coronavirus NL63 PCR Not Detected (NotDetected); Coronavirus OC43PCR Not Detected (NotDetected); Human Metapneumovirus PCR Not Detected (NotDetected); Parainfluenza Virus 1 PCR Not Detected (NotDetected); Parainfluenza Virus 2 PCR Not Detected (NotDetected); Parainfluenza Virus 3 PCR Not Detected (NotDetected); Parainfluenza Virus 4 PCR Not Detected (NotDetected); Respiratory Syncytial VirusPCR Not Detected (NotDetected); Rhinovirus/Enterovirus PCR DETECTED (NotDetected)
--- NOTE | 2024-12-23 03:28 | XRay Report ---
Exam(s): XR CXR 1 VIEW EXAM: XR Chest, 1 View CLINICAL HISTORY: Chest Pain, nonspecific. TECHNIQUE: Frontal view of the chest. COMPARISON: Chest radiograph 12/14/2024 FINDINGS: Lungs: Right lower lobe pneumonia. Pleural space: Small right pleural effusion and question small left pleural effusion. No pneumothorax. Heart: Cardiomegaly. Mediastinum: Unremarkable. Normal mediastinal contour. Bones/joints: There are degenerative changes of the spine. No acute fracture. IMPRESSION: 1. Right lower lobe pneumonia. 2. Small right pleural effusion and question small left pleural effusion. 3. Cardiomegaly. Electronically signed by: Idalia Edge MD 12/23/24 03:27 AM
[2024-12-23] MEDS ORDERED: GLUCOSE 10 TAB/TUBE PO PRN (03:48)
[2024-12-23] MEDS ORDERED: MELATONIN 3 MG TAB PO PRN (03:48)
[2024-12-23] MEDS ORDERED: DEXTROSE 50% 50 ML SYRINGE IV PRN (03:48)
[2024-12-23] MEDS ORDERED: ONDANSETRON INJ 2 MG/ML 2 ML VIAL IV PRN (03:48)
[2024-12-23] MEDS ORDERED: GLUCOSE 40% GEL 15 GM TUBE PO PRN (03:48)
[2024-12-23] MEDS ORDERED: POLYETHYLENE (MIRALAX) 17 GM PACK PO PRN (03:48)
[2024-12-23] MEDS ORDERED: GLUCAGON FOR INJ 1 MG VIAL SQ PRN (03:48)
[2024-12-23 04:37] LABS: Appearance Urine Clear (Clear); Bacteria Urine Automated None Seen (None Seen); Glucose Urine UA Negative (Negative); RBC Urine Automated 0-2 /hpf (0-2); WBC Urine Automated 0-5 /hpf (0-5)
[2024-12-23] MEDS: ALBUT/IPRATROP 3MG/0.5MG NEB 3 ML VIAL NEB SCH (05:30)
[2024-12-23 07:45] LABS: Hematocrit (blood only) 27.1 % (37.0-47.0); Hemoglobin 8.6 g/dl (12.0-16.0); Mean Corpuscular Hemoglobin 31.4 pg (25.0-34.0); Mean Corpuscular Volume 98.9 fL (80.0-100.0); Platelet Count 432 K/uL (130-400); RDW Standard Deviation 47.4 fL (36.4-46.3); Red Blood Count 2.74 M/uL (4.20-5.40); White Blood Count 8.97 K/ul (4.8-10.8)
[2024-12-23 08:05] LABS: Anion Gap 11.0 (3-11); Blood Urea Nitrogen 49.0 mg/dl (6-23); Calcium 8.7 mg/dl (8.6-10.3); Carbon Dioxide 17.0 mmol/L (21-32); Chloride 112.0 mmol/L (98-107); Creatinine Clr Calc Pharmacy 18.1 ml/min; Glucose 197.0 mg/dl (70-99(Fasting)); Potassium 5.0 mmol/L (3.5-5.1); Sodium 140.0 mmol/L (136-145)
[2024-12-23] MEDS: SODIUM ZIRCONIUM CYCLOSILICATE 10 GM PACKET PO SCH (08:47)
[2024-12-23] MEDS: INSULIN ASPART PER UNIT CHARGE SC SCH (08:47)
[2024-12-23] MEDS: FERROUS SULFATE 325 MG TAB PO SCH (08:48)
[2024-12-23] MEDS: LANTUS PER UNIT CHARGE SQ SCH (08:48)
[2024-12-23] MEDS: FOLIC ACID 1 MG TAB PO SCH (08:48)
[2024-12-23] MEDS: EMPAGLIFLOZIN 10 MG TAB PO SCH (08:48)
[2024-12-23] MEDS: busPIRone 15 MG TAB PO SCH (08:48)
[2024-12-23] MEDS: ASPIRIN 81 MG ECTAB PO SCH (08:48)
[2024-12-23] MEDS: VENLAFAXINE HCL XR 150 MG CAPXR PO SCH (08:48)
[2024-12-23] MEDS: MAGNESIUM OXIDE 400 MG TAB PO SCH (08:49)
[2024-12-23] MEDS: ROSUVASTATIN CALCIUM 20 MG TAB PO SCH (08:49)
[2024-12-23] MEDS: LABETALOL HCL 100 MG TAB PO SCH (08:49)
--- NOTE | 2024-12-23 08:49 | XCELERA ---
[id number] \\[id number]
--- NOTE | 2024-12-23 08:59 | Hospitalist Progress Note ---
Date of Service December 23, 2024 Assessment & Plan (1) Acute on chronic heart failure with preserved ejection fraction (HFpEF): (2) Acute respiratory failure with hypoxia: Plan 74-year-old female PMHx CKD stage IV, chronic back pain, urinary incontinence, insulin-dependent T2DM, anxiety, MCI, recurrent UTIs, HTN, dyslipidemia, hypothyroidism, recurrent hyperkalemia, and GERD with most recent hospital admission 12/14/2024 until 12/15/2024 for hyperkalemia and KEEGAN who is presenting for shortness of breath x 1 week, worsened the night of arrival. ED evaluation is significant for mild leukocytosis and anemia, near baseline renal function, elevated troponin without ischemic changes on EKG, and BNP of 961. Likely acute on chronic HF leading to hypoxia. Admission for such. #Acute hypoxic respiratory failure/Acute on chronic HFpEF/Rhinovirus Presenting w/ SOB, with history of CHF. At home, pt is on Jardiance (HF/DM) and furosemide 20mg prn at home but has not been taking. Furosemide 40mg IV in ED. - CXR official read suggests right lower lobe pneumonia in context of a rhinovirus infection could be viral pneumonia however I feel that x-ray seems more consistent with mild pulmonary vascular congestion - BioFire (+) entero/rhinovirus - Echo 05/2024 EF 55-60% - pending repeat - O2 prn - none at baseline - DuoNeb moe - Lasix 40mg IV x 1 in ED -- adjust dosing pending volume status in am - Deferred abx at time of admission viral pneumonia on presentation demand ischemia #T2DM H/o DMT2; At home regimen includes Jardiance, insulin aspart SS, insulin glargine 44U am. - Glucose at admission 114; Most recent A1C 12/2024 @ 8.3% - Hold home regimen except Jardiance (HF) - SSI with target BSG range 110-150mg/dL, CF 25, carb ratio 10 - Lantus 20U BID - BSG ACHS - Adjust regimen as needed #CKD stage IV/Nephrotic syndrome Baseline Cr 2.0-2.4. Was continued on furosemide and Jardiance per PCP note on 12/17/2024. Follows with nephrology, most recent visit being 12/03/2024. - Cr at admission 2.41, Patient suffers from chronic hyperkalemia but currently the patient is on Lokelma Saturday. Patient suffers from iron deficiency anemia associated with anemia of chronic inflammation from her renal disease patient on Procrit monthly - UA pending #HTN- Amlodipine, labetalol - continue #Psych- Buspirone, venlafaxine - continue #Hyperthyroidism- Methimazole - continue #GERD- Pantoprazole - continue #HLD- ASA, Rosuvastatin - continue VTE Prophylaxis: SCDs -- add chemical prophylaxis if prolonged stay Admission and Anticipated Discharge Date Admission Date: December 23, 2024 Subjective pt states she feels about 40% back to her normal still with cough weakness and shortness of breath Physical Exam Physical Exam: bilateral lower lobe wheezes and rhonchi Results & Data Results & Data Vital Signs (Past 12 Hours) Vital Signs Temp Pulse Pulse Resp BP BP Pulse Ox 12/23/24 05:31 77 18 95 12/23/24 04:45 12/23/24 03:49 98.2 F 60 22 168/75 H 97 12/23/24 02:54 12/23/24 02:00 86 22 141/78 H 94 12/23/24 01:30 86 23 127/83 95 12/23/24 01:00 83 23 134/93 91 12/23/24 00:31 76 20 144/55 H 100 12/23/24 00:00 77 20 147/58 H 100 12/22/24 23:58 80 12/22/24 23:52 76 16 86 L 12/22/24 23:43 91 12/22/24 23:40 91 12/22/24 23:40 98.5 F 77 26 H 142/103 H 91 12/22/24 23:40 O2 Del Method O2 Flow Rate 12/23/24 05:31 Nasal Cannula 2 12/23/24 04:45 Nasal Cannula 3 12/23/24 03:49 Nasal Cannula 3 12/23/24 02:54 Nasal Cannula 3 12/23/24 02:00 Nasal Cannula 3 12/23/24 01:30 Nasal Cannula 3 12/23/24 01:00 Room Air 12/23/24 00:31 Nebulizer 12/23/24 00:00 Nebulizer 12/22/24 23:58 12/22/24 23:52 Room Air 12/22/24 23:43 Room Air 12/22/24 23:40 Room Air 12/22/24 23:40 Room Air 12/22/24 23:40 Room Air Laboratory Results reviewed cbc reviewed chemistry PG Care Time/CCT Total # of Minutes Spent Total Time Spent with Patient: Total time spent is greater than 50% in coordination of care (as documented) at patient's floor/unit and/or counseling patient: Coding Level of Care Code 43357 SUB INP/OBS CARE 2/35MIN Diagnoses Acute on chronic heart failure with preserved ejection fraction (HFpEF) I50.33 Acute respiratory failure with hypoxia J96.01
--- NOTE | 2024-12-24 07:17 | Hospitalist Progress Note ---
Date of Service December 24, 2024 Assessment & Plan (1) Acute on chronic heart failure with preserved ejection fraction (HFpEF): (2) Acute respiratory failure with hypoxia: (3) Rhinovirus infection: Plan 74-year-old female PMHx CKD stage IV, chronic back pain, urinary incontinence, insulin-dependent T2DM, anxiety, MCI, recurrent UTIs, HTN, dyslipidemia, hypothyroidism, recurrent hyperkalemia, and GERD with most recent hospital admission 12/14/2024 until 12/15/2024 for hyperkalemia and KEEGAN who is presenting for shortness of breath x 1 week, worsened the night of arrival. ED evaluation is significant for mild leukocytosis and anemia, near baseline renal function, elevated troponin without ischemic changes on EKG, and BNP of 961. Likely acute on chronic HF leading to hypoxia. Admission for such. #Acute hypoxic respiratory failure/Acute on chronic HFpEF/Rhinovirus Presenting w/ SOB, with history of CHF. At home, pt is on Jardiance (HF/DM) and furosemide 20mg prn at home but has not been taking. Furosemide 40mg IV in ED. - CXR official read suggests right lower lobe rhinovirus pneumonia - BioFire (+) entero/rhinovirus - Echo normal systolic function, elevated right heart pressure with concern for pulmonary hypertension - O2 prn - none at baseline - DuoNeb moe - Lasix 40mg IV x 1 in ED -- with pulmonary hypertension will start low po daily dose - Deferred abx at time of admission viral pneumonia on presentation demand ischemia with elevated troponin #T2DM H/o DMT2; At home regimen includes Jardiance, insulin aspart SS, insulin glargine 44U am. - Glucose at admission 114; Most recent A1C 12/2024 @ 8.3% - Hold home regimen except Jardiance (HF) - SSI with target BSG range 110-150mg/dL, CF 25, carb ratio 10 - reduce home lantus due to low blood glucose reading - BSG ACHS - Adjust regimen as needed #CKD stage IV/Nephrotic syndrome Baseline Cr 2.0-2.4. Was continued on furosemide and Jardiance per PCP note on 12/17/2024. Follows with nephrology, most recent visit being 12/03/2024. - Cr at admission 2.41, Patient suffers from chronic hyperkalemia but currently the patient is on Lokelms Saturday. Patient suffers from iron deficiency anemia associated with anemia of chronic inflammation from her renal disease patient on Procrit monthly - UA pending #HTN- Amlodipine, labetalol - continue #Psych- Buspirone, venlafaxine - continue #Hyperthyroidism- Methimazole - continue #GERD- Pantoprazole - continue #HLD- ASA, Rosuvastatin - continue VTE Prophylaxis: SCDs -- add chemical prophylaxis Admission and Anticipated Discharge Date Admission Date: December 23, 2024 Subjective pt states she continues to improve back towards her normal still with cough weakness and shortness of breath Daughter at the bedside and is encouraged she might build to go home in a day or 2 Physical Exam Physical Exam: bilateral lower lobe wheezes and rhonchi Card exam is regular legs are without edema Results & Data Results & Data Vital Signs (Past 12 Hours) Vital Signs Temp Pulse Pulse Resp BP Pulse Ox O2 Del Method 12/24/24 03:29 98.1 F 72 20 142/78 H 95 Nasal Cannula 12/24/24 02:09 60 18 98 Nasal Cannula 12/23/24 23:58 98.4 F 85 18 120/73 96 Nasal Cannula 12/23/24 22:44 55 L 18 96 Nasal Cannula 12/23/24 20:40 84 105/61 12/23/24 19:40 43 L 20 92 Room Air O2 Flow Rate 12/24/24 03:29 3 12/24/24 02:09 1 12/23/24 23:58 3 12/23/24 22:44 1 12/23/24 20:40 12/23/24 19:40 PG Care Time/CCT Total # of Minutes Spent Total Time Spent with Patient: Total time spent is greater than 50% in coordination of care (as documented) at patient's floor/unit and/or counseling patient: Coding Level of Care Code 64306 SUB INP/OBS CARE 3/50MIN Diagnoses Acute on chronic heart failure with preserved ejection fraction (HFpEF) I50.33 Acute respiratory failure with hypoxia J96.01 Rhinovirus infection B34.8
[2024-12-24] MEDS: CARBOHYDRATES FOR HYPOGLYCEMIA PO PRN (07:32)
[2024-12-24] MEDS: LANTUS PER UNIT CHARGE SQ SCH (20:51)
[2024-12-25 07:22] LABS: Anion Gap 8.0 (3-11); Blood Urea Nitrogen 70.0 mg/dl (6-23); Calcium 8.3 mg/dl (8.6-10.3); Carbon Dioxide 20.0 mmol/L (21-32); Chloride 112.0 mmol/L (98-107); Creatinine Clr Calc Pharmacy 15.8 ml/min; Glucose 106.0 mg/dl (70-99(Fasting)); Potassium 4.9 mmol/L (3.5-5.1); Sodium 140.0 mmol/L (136-145)
[2024-12-25] MEDS: FUROSEMIDE 20 MG TAB PO SCH (08:45)
--- NOTE | 2024-12-25 10:53 | Hospitalist Progress Note ---
Date of Service December 25, 2024 Assessment & Plan (1) Acute on chronic heart failure with preserved ejection fraction (HFpEF): (2) Acute respiratory failure with hypoxia: (3) Rhinovirus infection: Plan 74-year-old female PMHx CKD stage IV, chronic back pain, urinary incontinence, insulin-dependent T2DM, anxiety, MCI, recurrent UTIs, HTN, dyslipidemia, hypothyroidism, recurrent hyperkalemia, and GERD with most recent hospital admission 12/14/2024 until 12/15/2024 for hyperkalemia and KEEGAN who is presenting for shortness of breath x 1 week, worsened the night of arrival. ED evaluation is significant for mild leukocytosis and anemia, near baseline renal function, elevated troponin without ischemic changes on EKG, and BNP of 961. chest x ray shows evidence of PNA. #Acute hypoxic respiratory failure secondary to Rhinovirus PNA -Presenting w/ SOB, - CXR official read suggests right lower lobe rhinovirus pneumonia - BioFire (+) entero/rhinovirus - Echo normal systolic function, elevated right heart pressure with concern for pulmonary hypertension - continue symptomatic mgt - Deferred abx at time of admission viral pneumonia on presentation -Wean oxygen as tolerated demand ischemia with elevated troponin CHF wpef: Patient appears compensated BNP 961 onadmission Takes Lasix 20mg at home, although has not been taking it #T2DM H/o DMT2; At home regimen includes Jardiance, insulin aspart SS, insulin glargine 44U am. - Glucose at admission 114; Most recent A1C 12/2024 @ 8.3% - Hold home regimen except Jardiance (HF) - SSI with target BSG range 110-150mg/dL, CF 25, carb ratio 10 - reduce home lantus due to low blood glucose reading - BSG ACHS - Adjust regimen as needed #CKD stage IV/Nephrotic syndrome Baseline Cr 2.0-2.4. -Was continued on furosemide and Jardiance per PCP note on 12/17/2024. Follows with nephrology, most recent visit being 12/03/2024. - Cr at admission 2.41, now 2.95 -Will hold lasix and Lisinopril Patient suffers from chronic hyperkalemia but currently the patient is on [facility] Saturday. Patient suffers from iron deficiency anemia associated with anemia of chronic inflammation from her renal disease patient on Procrit monthly - UA pending #HTN- Amlodipine, labetalol - continue #Psych- Buspirone, venlafaxine - continue #Hyperthyroidism- Methimazole - continue #GERD- Pantoprazole - continue #HLD- ASA, Rosuvastatin - continue VTE Prophylaxis: SCDs -- add chemical prophylaxis Disposition: Hopefully d/c home in the next 24 hrs Admission and Anticipated Discharge Date Admission Date: December 23, 2024 Subjective patient seen and examined, still complaining of cough, denies SOB or chest pain Review of Systems Review of Systems: All systems reviewed are negative, apart from the ones contained in the history. Physical Exam Physical Exam: The patient is awake, alert and oriented 3, well developed and well nourished, normocephalic and atraumatic, lying in bed and in no acute distress. HEENT--PERRL, EOMI, mucous membranes and oropharynx mildly dry Neck--supple. No JVD. No bruits. Thyroid normal, trachea midline, no adenopathy. Heart--normal S1 and S2. No murmurs, rubs or gallops. Lungs--clear bilaterally, no respiratory distress, no accessory muscle use. Abdomen--normal bowel sounds and soft. Extremities--no cyanosis or clubbing. No edema. Dermatologic--normal skin turgor, normal color, no abnormal lymph nodes, no rash. Neurologic--cranial nerves II through XII grossly intact. Rheumatologic--normal range of motion. Psychiatric--normal affect. Results & Data Results & Data Vital Signs (Past 12 Hours) Vital Signs Temp Pulse Resp BP Pulse Ox O2 Del Method O2 Flow Rate 12/25/24 08:24 99.0 F 80 24 142/68 H 95 Nasal Cannula 2 12/25/24 07:12 73 16 98 Nasal Cannula 2 12/25/24 03:06 98.4 F 67 18 144/61 H 94 Nasal Cannula 2 12/25/24 02:00 66 18 98 Nasal Cannula 2 12/24/24 23:42 98.4 F 78 18 125/66 93 Nasal Cannula 2 PG Care Time/CCT Total # of Minutes Spent Total Time Spent with Patient: Total time spent is greater than 50% in coordination of care (as documented) at patient's floor/unit and/or counseling patient: Coding Level of Care Code 04900 SUB INP/OBS CARE 2/35MIN Diagnoses Acute on chronic heart failure with preserved ejection fraction (HFpEF) I50.33 Acute respiratory failure with hypoxia J96.01 Rhinovirus infection B34.8 Time Spent (min) 35
[2024-12-25 18:21] LABS: Appearance Urine Cloudy (Clear); Bacteria Urine Automated 1+ (None Seen); Glucose Urine UA 2+ (Negative); RBC Urine Automated 0-2 /hpf (0-2); WBC Urine Automated 21-50 /hpf (0-5)
[2024-12-25] MEDS: cefTRIAXone SODIUM 2,000 MG/50 ML BAG IV SCH (19:51)
[2024-12-26 07:00] LABS: Hematocrit (blood only) 24.6 % (37.0-47.0); Hemoglobin 7.7 g/dl (12.0-16.0); Mean Corpuscular Hemoglobin 31.2 pg (25.0-34.0); Mean Corpuscular Volume 99.6 fL (80.0-100.0); Platelet Count 483 K/uL (130-400); RDW Standard Deviation 49.4 fL (36.4-46.3); Red Blood Count 2.47 M/uL (4.20-5.40); White Blood Count 13.68 K/ul (4.8-10.8)
[2024-12-26 07:35] LABS: Anion Gap 8.0 (3-11); Blood Urea Nitrogen 74.0 mg/dl (6-23); Calcium 8.3 mg/dl (8.6-10.3); Carbon Dioxide 18.0 mmol/L (21-32); Chloride 113.0 mmol/L (98-107); Creatinine Clr Calc Pharmacy 15.5 ml/min; Glucose 130.0 mg/dl (70-99(Fasting)); Potassium 5.0 mmol/L (3.5-5.1); Sodium 139.0 mmol/L (136-145)
--- NOTE | 2024-12-26 07:56 | Electrocardiogram Report ---
Test Reason : Blood Pressure : */* mmHG Vent. Rate : 83 BPM Atrial Rate : 86 BPM P-R Int : * ms QRS Dur : 80 ms QT Int : 372 ms P-R-T Axes : * 41 47 degrees QTcB Int : 437 ms Sinus rhythm Premature atrial complexes Otherwise normal ECG When compared with ECG of 14-Dec-2024 20:42, Premature atrial complexes are now Present Confirmed by Mitesh Kuhn ([id number]) on 12/26/2024 7:56:11 AM Referred By: REFERRED SELF Confirmed By: Mitesh Kuhn
[2024-12-26] MEDS: ACETAMINOPHEN 500 MG TAB PO PRN (09:00)
--- NOTE | 2024-12-26 10:07 | Hospitalist Progress Note ---
Date of Service December 26, 2024 Assessment & Plan (1) Acute on chronic heart failure with preserved ejection fraction (HFpEF): (2) Acute respiratory failure with hypoxia: (3) Rhinovirus infection: Plan 74-year-old female PMHx CKD stage IV, chronic back pain, urinary incontinence, insulin-dependent T2DM, anxiety, MCI, recurrent UTIs, HTN, dyslipidemia, hypothyroidism, recurrent hyperkalemia, and GERD with most recent hospital admission 12/14/2024 until 12/15/2024 for hyperkalemia and KEEGAN who is presenting for shortness of breath x 1 week, worsened the night of arrival. ED evaluation is significant for mild leukocytosis and anemia, near baseline renal function, elevated troponin without ischemic changes on EKG, and BNP of 961. chest x ray shows evidence of PNA. #Acute hypoxic respiratory failure secondary to Rhinovirus PNA -Presenting w/ SOB, - CXR official read suggests right lower lobe rhinovirus pneumonia - BioFire (+) entero/rhinovirus - Echo normal systolic function, elevated right heart pressure with concern for pulmonary hypertension - continue symptomatic mgt - Deferred abx at time of admission viral pneumonia on presentation -Mild wheeze on exam -Wean oxygen as tolerated -Continue duonebs UTI: Urinalysis suggestive of UTI Cultures pending Continue empiric IV Ceftriaxone demand ischemia with elevated troponin CHF wpef: Patient appears compensated BNP 961 onadmission Takes Lasix 20mg at home, although has not been taking it #T2DM H/o DMT2; At home regimen includes Jardiance, insulin aspart SS, insulin glargine 44U am. - Glucose at admission 114; Most recent A1C 12/2024 @ 8.3% - Hold home regimen except Jardiance (HF) - SSI with target BSG range 110-150mg/dL, CF 25, carb ratio 10 - reduce home lantus due to low blood glucose reading - BSG ACHS - Adjust regimen as needed #CKD stage IV/Nephrotic syndrome Baseline Cr 2.0-2.4. -Was continued on furosemide and Jardiance per PCP note on 12/17/2024. Follows with nephrology, most recent visit being 12/03/2024. - Cr at admission 2.41, now 2.95 -Will hold lasix and Lisinopril Patient suffers from chronic hyperkalemia but currently the patient is on [facility] Saturday. Patient suffers from iron deficiency anemia associated with anemia of chronic inflammation from her renal disease patient on Procrit monthly - UA pending #HTN- Amlodipine, labetalol - continue #Psych- Buspirone, venlafaxine - continue #Hyperthyroidism- Methimazole - continue #GERD- Pantoprazole - continue #HLD- ASA, Rosuvastatin - continue VTE Prophylaxis: SCDs -- add chemical prophylaxis Disposition: Hopefully d/c home in the next 24 hrs Admission and Anticipated Discharge Date Admission Date: December 23, 2024 Subjective patient seen and examined, still complaining of cough, mild SOB on exertion Review of Systems Review of Systems: All systems reviewed are negative, apart from the ones contained in the history. Physical Exam Physical Exam: The patient is awake, alert and oriented 3, well developed and well nourished, normocephalic and atraumatic, lying in bed and in no acute distress. HEENT--PERRL, EOMI, mucous membranes and oropharynx mildly dry Neck--supple. No JVD. No bruits. Thyroid normal, trachea midline, no adenopathy. Heart--normal S1 and S2. No murmurs, rubs or gallops. Lungs--reduced air entry, bibasilar wheeze Abdomen--normal bowel sounds and soft. Extremities--no cyanosis or clubbing. No edema. Dermatologic--normal skin turgor, normal color, no abnormal lymph nodes, no rash. Neurologic--cranial nerves II through XII grossly intact. Rheumatologic--normal range of motion. Psychiatric--normal affect. Results & Data Results & Data Vital Signs (Past 12 Hours) Vital Signs Temp Pulse Resp BP BP Pulse Ox O2 Del Method 12/26/24 07:24 98.1 F 78 20 133/70 90 Nasal Cannula 12/26/24 07:15 88 18 92 Nasal Cannula 12/26/24 03:33 137/65 12/26/24 03:21 98.4 F 99 H 24 172/80 H 95 Nasal Cannula 12/25/24 23:12 99.0 F 102 H 24 176/70 H 94 Nasal Cannula 12/25/24 22:22 73 16 90 Room Air O2 Flow Rate 12/26/24 07:24 2.0 12/26/24 07:15 3 12/26/24 03:33 12/26/24 03:21 3 12/25/24 23:12 3 12/25/24 22:22 PG Care Time/CCT Total # of Minutes Spent Total Time Spent with Patient: Total time spent is greater than 50% in coordination of care (as documented) at patient's floor/unit and/or counseling patient: Coding Level of Care Code 15048 SUB INP/OBS CARE 2/35MIN Diagnoses Acute on chronic heart failure with preserved ejection fraction (HFpEF) I50.33 Acute respiratory failure with hypoxia J96.01 Rhinovirus infection B34.8 Time Spent (min) 35
[2024-12-27 06:18] LABS: Hematocrit (blood only) 25.0 % (37.0-47.0); Hemoglobin 7.5 g/dl (12.0-16.0); Mean Corpuscular Hemoglobin 30.0 pg (25.0-34.0); Mean Corpuscular Volume 100.0 fL (80.0-100.0); Platelet Count 491 K/uL (130-400); RDW Standard Deviation 49.2 fL (36.4-46.3); Red Blood Count 2.50 M/uL (4.20-5.40); White Blood Count 13.50 K/ul (4.8-10.8)
[2024-12-27 06:31] LABS: Anion Gap 7.0 (3-11); Blood Urea Nitrogen 76.0 mg/dl (6-23); Calcium 8.6 mg/dl (8.6-10.3); Carbon Dioxide 20.0 mmol/L (21-32); Chloride 113.0 mmol/L (98-107); Creatinine Clr Calc Pharmacy 16.4 ml/min; Glucose 98.0 mg/dl (70-99(Fasting)); Potassium 5.3 mmol/L (3.5-5.1); Sodium 140.0 mmol/L (136-145)
--- NOTE | 2024-12-27 10:12 | Discharge Summary ---
Date of Service December 27, 2024 Admission HPI Per Admitting Provider 74-year-old female PMHx CKD stage IV, chronic back pain, urinary incontinence, insulin-dependent T2DM, anxiety, MCI, recurrent UTIs, HTN, dyslipidemia, hypothyroidism, recurrent hyperkalemia, and GERD with most recent hospital admission 12/14/2024 until 12/15/2024 for hyperkalemia and KEEGAN who is presenting for shortness of breath x 1 week, worsened the night of arrival. Reports cough x 1 week that is nonproductive with occasional rhinorrhea that is clear in nature. Denies fever or chills. Has had a headache from coughing as well as abdominal soreness from coughing. Has had some urinary incontinence because she is coughing so much. Admits to occasional SOB that is worse in the evening, around [id number] per patient. She continues to have hacking throughout the night. Laying flat does not worsen her breathing. He was exposed to a family friend who tested positive for rhinovirus. Denies chest pain, palpitations, abdominal pain, N/V/D/C, numbness/tingling, LUTS, F/C, additional URI symptoms, weakness, or falls. Has not been taking Lasix at all. Took all of her day and night time medications. ED evaluation reveals CBC with leukocytosis 13.45, RBC 2.68, H&H 8.2/26.5, platelets 448; VBG's pH 7.28, pCO2 37; CMP chloride 111, CO2 17, creatinine 2.41, BUN 46, glucose 114, AST 10, albumin 3.1, ratio 0.8; troponin 22.5, pending repeat; BNP 961; lipase 10; procalcitonin 0.23; CXR pending official read; EKG undetermined rhythm at 83 bpm.; Provided with albuterol 12 mL neb x 1 in ED. Admission Exam (Per Admitting) Constitutional The patient is awake, alert and oriented 3, well developed and well nourished, normocephalic and atraumatic, lying in bed and in no acute distress. HEENT--PERRL, EOMI, mucous membranes and oropharynx mildly dry Neck--supple. No JVD. No bruits. Thyroid normal, trachea midline, no adenopathy. Heart--normal S1 and S2. No murmurs, rubs or gallops. Lungs--clear bilaterally, no respiratory distress, no accessory muscle use. Abdomen--normal bowel sounds and soft. Extremities--no cyanosis or clubbing. No edema. Dermatologic--normal skin turgor, normal color, no abnormal lymph nodes, no rash. Neurologic--cranial nerves II through XII grossly intact. Rheumatologic--normal range of motion. Psychiatric--normal affect. Discharge Data Consultations 12/23/24 01:22 ED Decision to Admit Stat Hospital Course (1) Acute on chronic heart failure with preserved ejection fraction (HFpEF): (2) Acute respiratory failure with hypoxia: (3) Rhinovirus infection: Plan 74-year-old female PMHx CKD stage IV, chronic back pain, urinary incontinence, insulin-dependent T2DM, anxiety, MCI, recurrent UTIs, HTN, dyslipidemia, hypothyroidism, recurrent hyperkalemia, and GERD with most recent hospital admission 12/14/2024 until 12/15/2024 for hyperkalemia and KEEGAN who is presenting for shortness of breath x 1 week, worsened the night of arrival. ED evaluation is significant for mild leukocytosis and anemia, near baseline renal function, elevated troponin without ischemic changes on EKG, and BNP of 961. chest x ray shows evidence of PNA. #Acute hypoxic respiratory failure secondary to Rhinovirus PNA -Presenting w/ SOB, - CXR official read suggests right lower lobe rhinovirus pneumonia - BioFire (+) entero/rhinovirus - Echo normal systolic function, elevated right heart pressure with concern for pulmonary hypertension - continue symptomatic mgt - Deferred abx at time of admission viral pneumonia on presentation -Home oxygen eval recs 2L of oxygen at rest and 3L with ambulation -She needs home oxygen with portabilty due to hypoxic resp failure from viral Pneumonia UTI: Urinalysis suggestive of UTI Cultures pending Continue empiric IV Ceftriaxone, discharge on Po cephalexin for 3 more days demand ischemia with elevated troponin CHF wpef: Patient appears compensated BNP 961 onadmission Takes Lasix 20mg at home, although has not been taking it #T2DM H/o DMT2; At home regimen includes Jardiance, insulin aspart SS, insulin glargine 44U am. - Glucose at admission 114; Most recent A1C 12/2024 @ 8.3% - Hold home regimen except Jardiance (HF) - SSI with target BSG range 110-150mg/dL, CF 25, carb ratio 10 - reduce home lantus due to low blood glucose reading - BSG ACHS - Adjust regimen as needed #CKD stage IV/Nephrotic syndrome Baseline Cr 2.0-2.4. -Was continued on furosemide and Jardiance per PCP note on 12/17/2024. Follows with nephrology, most recent visit being 12/03/2024. - Cr at admission 2.41, now 2.95 -Will hold lasix and Lisinopril Patient suffers from chronic hyperkalemia but currently the patient is on [facility] Saturday. Patient suffers from iron deficiency anemia associated with anemia of chronic inflammation from her renal disease patient on Procrit monthly - UA pending #HTN- Amlodipine, labetalol - continue #Psych- Buspirone, venlafaxine - continue #Hyperthyroidism- Methimazole - continue #GERD- Pantoprazole - continue #HLD- ASA, Rosuvastatin - continue VTE Prophylaxis: SCDs -- add chemical prophylaxis Disposition: d/c home with home health Coding Level of Care Code 08481 INP/OBS DISCH >30 MIN Diagnoses Acute on chronic heart failure with preserved ejection fraction (HFpEF) I50.33 Acute respiratory failure with hypoxia J96.01 Rhinovirus infection B34.8 Time Spent (min) 35
[2024-12-27 11:09] VITALS: BP 138/90; TEMP 98.4
[2024-12-27 11:15] VITALS: PULSE 89; RESP 18; O2SAT 96
--- NOTE | 2024-12-27 12:26 | Electrocardiogram Report ---
Test Reason : Blood Pressure : */* mmHG Vent. Rate : 83 BPM Atrial Rate : 144 BPM P-R Int : 160 ms QRS Dur : 84 ms QT Int : 370 ms P-R-T Axes : 19 20 39 degrees QTcB Int : 434 ms Sinus tachycardia with Premature atrial complexes Otherwise normal ECG When compared with ECG of 22-Dec-2024 23:40, There is no significant change Confirmed by Mya Castro (Ronal) on 12/27/2024 12:26:34 PM Referred By: REFERRED SELF Confirmed By: Mya Castro
[2024-12-27] MEDS: SODIUM ZIRCONIUM CYCLOSILICATE 10 GM PACKET PO SCH (12:37)
== END 2024-12-27 14:56 | disposition home health service (06) | DRG 291 ==
LOC: ED 23:32 → SUATTDRO 12-23 01:30 → 2E 12-23 01:30

== ENCOUNTER 2025-01-04 21:46 | Inpatient (IN) ==
--- NOTE | 2025-01-04 22:10 | Emergency Department Note ---
Impression & Plan Atrial bigeminy, Diastolic CHF, Chronic kidney disease, stage IV (severe) ED Provider Note NAME: CRISS LEGGETT AGE: 74 SEX: F : 1950 ARRIVES VIA: Walk-In INFORMANT: Patient, Friend and daughter ED PROVIDER(S): Guille Shah MD CHIEF COMPLAINT: Outpatient referral, abnormal EKG MEDICAL DECISION MAKING: Patient presents with the above and associated concern for at home bradycardia. Note from prior outpatient provider notes Mobitz type II which would be concerning if the patient truly had this as she would require pacemaker. IV was established and blood work was obtained along with a Lyme's. Patient is not had any significant bradycardia while here in hospital during her time here in the emergency department. Patient with a white count of 11 with a hemoglobin of 7.5 platelet count is unremarkable. The patient's kidney function with creatinine of 2. Patient is positive for her Lyme screen. Given the concerns as an outpatient as well as this reported EKG I did speak with the on-call hospitalist service Dr. Delgado and the patient was admitted to medicine service. Discussion w/ other healthcare providers: Dr. Delgado inpatient medicine service Prior /Outside records reviewed: I reviewed part of a primary care visit note from that [facility] which noted an EKG with second-degree AV block Mobitz type II. Differential diagnosis: Benign positional vertigo, dehydration, hypovolemia, anemia, infection, hypoglycemia, electrolyte abnormalities, arrhythmia, tox among others were considered. Diagnostics, as interpreted by me: ECG: Sinus with PACs and pattern of bigeminy, ventricular to 77 with normal intervals and normal axis. No obvious ST elevations. Cardiac monitoring: An order was placed for continuous cardiac monitoring. The monitor shows a rate of 75 with sinus rhythm. Patient was placed on pulse oximetry Medical decision rules: None Imaging studies: I informally interpreted the patient's Chest x-ray shows cardiomegaly without obvious pneumothorax with formal report to follow. HPI:Patient presents due to concern for possible second-degree AV block or Mobitz type II. Patient was seen as an outpatient had called the on-call physician and family reported that the patient's heart rate was in the 30s so this presented here today. The patient has had some associated dizziness. She does report that she recently was admitted with a UTI and had been treated with IV antibiotics as well as at home. Patient states that she has had some fatigue and some cough but is improving as the patient also had concomitant rhinovirus infection. Patient denies any chest pain or shortness of breath. Patient denies any nausea vomiting or diarrhea. PAST MEDICAL HISTORY: See Below PAST SURGICAL HISTORY: See Below SOCIAL HISTORY: See Below HOME MEDICATIONS: See Below ALLERGIES: See Below VITALS: See Below PHYSICAL EXAMINATION: GENERAL: NAD, non-toxic. EYE EXAM: Normal conjunctiva. PERRL, no anisocoria and EOM's grossly intact w/o pain. OROPHARYNX: Moist mucus membranes, grossly normal dentition. NECK: Trachea midline, no stridor. LUNGS: Occasional coarse breath sounds without obvious wheezes. Normal chest wall mechanics. HEART: NSR, no MRG. ABDOMEN: Abdomen soft, non-tender, no masses, no rebound or guarding. BACK: No CVA TTP. SKIN: No rashes and no bruising. UPPER EXTREMITIES: Upper extremities are grossly normal. LOWER EXTREMITIES: Grossly normal, no edema. NEURO EXAM: Awake and alert, follows commands, no obvious facial asymmetry, normal speech, moves all 4 extremities. 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 joint pain Obesity Chronic low back pain Spinal stenosis, lumbar region with neurogenic claudication Major depressive disorder, recurrent, in partial remission Headaches due 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 Chronic kidney disease, stage IV (severe) (Acute) TIA (transient ischemic attack) (Acute) Anxiety Diastolic CHF (Acute) MCI (mild cognitive impairment) Iron deficiency anemia Secondary hyperparathyroidism Ketonuria (Acute) Diabetic nephropathy associated with type 2 diabetes mellitus Left cataract Vitamin D deficiency Nephrotic syndrome GERD without esophagitis Arthritis Hypertension Dyslipidemia HNP (herniated nucleus pulposus), lumbar Hyperthyroidism Medical History Recurrent UTI Leukocytosis Word finding difficulty Elevated troponin Vasovagal episode Melanoma of nose Major depressive disorder, recurrent severe without psychotic features Surgical History Status post trigger finger release History of repair of left rotator cuff History of repair of right rotator cuff History of colonoscopy History of melanoma excision History of tooth extraction all teeth removed History of bilateral cataract extraction S/P tonsillectomy S/P tubal ligation S/P cholecystectomy Family History Father Prostate cancer Diabetes Myocardial infarction Lung cancer Mother Diabetes Alzheimer disease Myocardial infarction Hypertension Brother COPD (chronic obstructive pulmonary disease) Other No family history of adverse response to anesthesia Denies family history of Ovarian cancer Breast cancer Colorectal cancer Social History Smoking Status: Never smoker Second Hand Exposure: No; Hx Alcohol Use: No Hx Substance Use: No Preferred Language: Singaporean Communication Ability: Effective Visual Impairment: No Limitations Hearing Ability: Normal Business Information Analyst Required: No Beliefs That Will Affect Care: None marital status: / Current Living Situation: Family Current Living Situation Comment: lives with daughter gray current occupational status: retired current occupation: retired - worked at [employer] Feels Safe at Home: Yes Childhood Exposure to Second-Hand Smoke: No Diet: regular caffeine: Yes (Soda x 10 cans per day.) during the past year weight has: remained stable Dental Care, Regularly: No Seatbelt Use: always Sunscreen Use: No Assistive Devices: Cane, Oxygen - at Night and Walker Allergies Allergies Allergy/AdvReac Type Severity Reaction Status Date / Time No Known Allergies Allergy Verified 01/04/25 10:20 Home Meds Home Medications Medication Instructions Recorded Confirmed acetaminophen 500 mg tablet 1,000 mg PO Q6H PRN Pain 06/19/21 01/04/25 cholecalciferol (vitamin D3) 125 125 mcg PO QAM 11/26/23 01/04/25 mcg (5,000 unit) capsule cyanocobalamin (vitamin B-12) 1,000 mcg PO QAM 11/26/23 01/04/25 1,000 mcg tablet epoetin rosa 40,000 unit/mL 40,000 unit subcut MONTHLY 12/10/24 01/04/25 injection solution (Procrit) rosuvastatin 20 mg tablet 20 mg PO QAM 12/14/24 01/04/25 Oxygen Home 01/04/25 01/04/25 ascorbic acid (vitamin C) 1,000 mg 1,000 mg PO QAM 01/04/25 01/04/25 tablet (Vitamin C) Previous Rx's Medication Instructions Recorded lancets (Accu-Chek Softclix #200 ea 04/27/22 Lancets) blood sugar diagnostic (Accu-Chek #100 ea 01/30/23 Guide test strips) blood-glucose meter (Accu-Chek #1 ea 02/13/23 Guide Glucose Meter) aspirin 81 mg tablet,delayed 81 mg PO QAM #0 tabs 03/20/23 release blood-glucose sensor (FreeStyle #3 ea 11/28/23 Darek 3 Sensor device) amlodipine 10 mg tablet 10 mg PO HS #90 tabs 01/03/24 pantoprazole 40 mg tablet,delayed 40 mg PO QAM #90 tabs 03/13/24 release methimazole 10 mg tablet 5 mg (1/2 x 10 mg) PO QAM #90 tabs 06/08/24 venlafaxine 150 mg 150 mg PO QAM #90 caps 06/08/24 capsule,extended release 24 hr (Effexor XR) calcitriol 0.25 mcg capsule 0.25 mcg PO 3XWK #36 caps 08/04/24 labetalol 100 mg tablet 100 mg PO BID #60 tabs 09/30/24 empagliflozin 10 mg tablet 10 mg PO DAILY #30 tabs 10/02/24 (Jardiance) insulin aspart U-100 100 unit/mL 1 sliding scale dose subcut DAILY 10/07/24 (3 mL) subcutaneous pen (Novolog #15 mL FlexPen U-100 Insulin aspart) pen needle, diabetic 32 gauge x #100 ea 10/07/24 1/" (CareFine Pen Needle) ferrous sulfate 325 mg (65 mg 325 mg PO BID #60 tabs 11/17/24 iron) tablet (Feosol) folic acid 1 mg tablet 1 mg PO QAM #30 tabs 11/17/24 furosemide 20 mg tablet (Lasix) 20 mg PO DAILY PRN leg swelling 11/17/24 #90 tabs magnesium oxide 400 mg (241.3 mg 400 mg PO DAILY #90 tabs 11/17/24 magnesium) tablet buspirone 15 mg tablet 15 mg PO BID #60 tabs 11/18/24 sodium zirconium cyclosilicate 10 10 g PO 3XWK #12 ea 12/15/24 gram oral powder packet (Lokelma) insulin glargine 100 unit/mL 44 unit (0.44 mL) subcut QAM #20 mL 12/21/24 subcutaneous solution (Lantus U-100 Insulin) Results & Data (ED) Vital Signs Vital Signs - 24 hr 01/04/25 21:49 Temperature 36.7 C Temperature Source Temporal Artery Scan Pulse Rate 86 Respiratory Rate 20 Respiratory Effort / Characteristics Non-Labored Spontaneous Respiratory Depth Normal Respiratory Pattern Regular Blood Pressure 186/77 H Blood Pressure Mean 113 Blood Pressure Position Sitting Pulse Oximetry 95 Oxygen Delivery Method Room Air Sepsis Recent Fever Within 48 Hours No Sepsis New/Unexplained Change in Mental Status No Sepsis Action Taken by Nursing No Action Required Home Medications Current Medication List: was personally reviewed by me Laboratory Data Attestation: I reviewed the patient's lab results. 01/04/25 22:55 01/04/25 22:55 Lab Results 01/04/25 Range/Units 22:55 WBC 11.33 H (4.8-10.8) K/ul RBC 2.49 L (4.20-5.40) M/uL Hgb 7.5 L (12.0-16.0) g/dl Hct 24.9 L (37.0-47.0) % MCV 100.0 (80.0-100.0) fL MCH 30.1 (25.0-34.0) pg MCHC 30.1 L (32.0-36.0) g/dL RDW Std Deviation 50.4 H (36.4-46.3) fL RDW Coeff of Emil 13.9 (11.5-14.5) % Plt Count 293 (130-400) K/uL MPV 11.5 (9.4-12.4) fL Immature Gran % (Auto) 0.4 % Neut % (Auto) 63.4 % Lymph % (Auto) 15.8 % [place] % (Auto) 11.2 % Eos % (Auto) 8.3 % Baso % (Auto) 0.9 % Neut # (Auto) 7.19 H (1.40-6.50) K/uL Lymph # (Auto) 1.79 (1.20-3.40) K/uL [place] # (Auto) 1.27 H (0.11-0.59) K/uL Eos # (Auto) 0.94 H (0.00-0.50) K/uL Baso # (Auto) 0.10 (0.00-0.20) K/uL Immature Gran # (Auto) 0.04 (0.01-0.20) K/uL RBC Morphology Unremarkable Sodium 138 (136-145) mmol/L Potassium 5.0 (3.5-5.1) mmol/L Chloride 110 H (98-107) mmol/L Carbon Dioxide 20 L (21-32) mmol/L Anion Gap 8 (3-11) BUN 45 H (6-23) mg/dl Creatinine 2.07 H (0.6-1.2) mg/dl Est Cr Clr Drug Dosing 20.3 ml/min eGFR 24.54 BUN/Creatinine Ratio 21.7 H (10-20) Glucose 186 H (70-99(Fasting)) mg/dl Calcium 9.0 (8.6-10.3) mg/dl Phosphorus 4.6 (2.5-4.9) mg/dl Magnesium 2.2 (1.7-2.4) mg/dl Total Bilirubin 0.3 (0.2-1.0) mg/dl AST 10 L (13-39) U/L ALT 8 (7-52) U/L Alkaline Phosphatase 71 (34-104) U/L Total Protein 7.1 (6.0-8.3) gm/dl Albumin 3.3 L (3.4-5.0) gm/dl Globulin 3.8 (2.5-4.0) gm/dl Albumin/Globulin Ratio 0.9 (0.9-2) TSH 2.112 (0.300-4.500) uIu/ml Lyme Disease Screen Positive H (Negative) Lyme Tier 2 IgG Confirm Negative (Negative) Lyme Tier 2 IgM Confirm Negative (Negative) Administered Medications Discontinued Medications Aspirin (Aspirin 81 Mg Ectab) 81 mg PO QA IAN Stop: 02/04/25 08:59 Last Admin: 01/05/25 08:05 Dose: 81 mg Documented By: [facility] Buspirone HCl (Buspirone 15 Mg Tab) 15 mg PO BID IAN Stop: 02/04/25 08:59 Last Admin: 01/05/25 08:04 Dose: 15 mg Documented By: JIM Guaifenesin (Guaifenesin Sugar Free 100 Mg/5 Ml Udc) 100 mg PO NOW STA Stop: 01/05/25 00:42 Last Admin: 01/05/25 01:12 Dose: 100 mg Documented By: JOSÉ Heparin Sodium (Porcine) (Heparin Sod 5,000 Unit/0.5 Ml Vial) 5,000 units SQ Q12 IAN Stop: 02/04/25 08:59 Last Admin: 01/05/25 08:10 Dose: 5,000 units Documented By: JIM Ceftriaxone Sodium (Rocephin) 2,000 mg in 50 mls @ 100 mls/hr IV NOW STA Stop: 01/05/25 01:10 Last Infusion: 01/05/25 01:38 Dose: Infused Documented By: Admin: 01/05/25 01:12 Dose: 100 mls/hr Documented By: JOSÉ Insulin Aspart (Insulin Aspart Per Unit Charge) 0 units SC ACHS IAN Stop: 02/04/25 07:29 Last Admin: 01/05/25 12:37 Dose: 6 units Documented By: JIM Co-signed By: AIDE Admin: 01/05/25 09:18 Dose: 3 units Documented By: JIM Co-signed By: ZIA Insulin Glargine (Lantus Per Unit Charge) 15 units SQ BID IAN Stop: 02/04/25 08:59 Last Admin: 01/05/25 09:18 Dose: 15 units Documented By: JIM Co-signed By: ZIA Magnesium Oxide (Magnesium Oxide 400 Mg Tab) 400 mg PO DAILY [facility] Stop: 02/04/25 08:59 Last Admin: 01/05/25 08:05 Dose: 400 mg Documented By: JIM Methimazole (Methimazole 5 Mg Tablet) 5 mg PO QAM IAN Stop: 02/04/25 08:59 Last Admin: 01/05/25 08:06 Dose: 5 mg Documented By: JIM Pantoprazole Sodium (Pantoprazole 40 Mg Tab) 40 mg PO QAM [facility] Stop: 02/04/25 08:59 Last Admin: 01/05/25 08:05 Dose: 40 mg Documented By: JIM Rosuvastatin Calcium (Rosuvastatin Calcium 20 Mg Tab) 20 mg PO QAM [facility] Stop: 02/04/25 08:59 Last Admin: 01/05/25 08:04 Dose: 20 mg Documented By: [facility] Venlafaxine HCl (Venlafaxine Hcl Xr 150 Mg Capxr) 150 mg PO QAM [facility] Stop: 02/04/25 08:59 Last Admin: 01/05/25 08:05 Dose: 150 mg Documented By: JIM Discharge Plan Visit Data Chief Complaint: Arrhythmia/Palpitations Stated Complaint: LOW HEART RATE ED Provider: Guille Shah Discharge Problem: Atrial bigeminy, Diastolic CHF, Chronic kidney disease, stage IV (severe) Patient Disposition: Admitted As Inpatient Condition: Good Discharge Instructions Interventions: ED Discharge Assessment Last Done: 01/05/25 01:48 Discharge Problem: Diastolic CHF Qualifiers: Heart failure chronicity: unspecified Qualified Code(s): I50.30 - Unspecified diastolic (congestive) heart failure
[2025-01-04 23:32] LABS: Hematocrit (blood only) 24.9 % (37.0-47.0); Hemoglobin 7.5 g/dl (12.0-16.0); Immature Granulocytes # (auto) 0.04 K/uL (0.01-0.20); Immature Granulocytes % (auto) 0.4 %; Mean Corpuscular Hemoglobin 30.1 pg (25.0-34.0); Mean Corpuscular Volume 100.0 fL (80.0-100.0); Platelet Count 293 K/uL (130-400); RDW Standard Deviation 50.4 fL (36.4-46.3); Red Blood Count 2.49 M/uL (4.20-5.40); White Blood Count 11.33 K/ul (4.8-10.8)
[2025-01-04 23:47] LABS: RBC Morphology Unremarkable
[2025-01-04 23:50] LABS: Alanine Aminotransferase 8.0 U/L (7-52); Albumin Globulin Ratio 0.9 (0.9-2); Albumin Level 3.3 gm/dl (3.4-5.0); Alkaline Phosphatase 71.0 U/L (34-104); Anion Gap 8.0 (3-11); Bilirubin,Total 0.3 mg/dl (0.2-1.0); Blood Urea Nitrogen 45.0 mg/dl (6-23); Calcium 9.0 mg/dl (8.6-10.3); Carbon Dioxide 20.0 mmol/L (21-32); Chloride 110.0 mmol/L (98-107); Creatinine Clr Calc Pharmacy 20.3 ml/min; Globulin 3.8 gm/dl (2.5-4.0); Glucose 186.0 mg/dl (70-99(Fasting)); Magnesium 2.2 mg/dl (1.7-2.4); Potassium 5.0 mmol/L (3.5-5.1); Sodium 138.0 mmol/L (136-145); Total Protein 7.1 gm/dl (6.0-8.3)
[2025-01-05 00:05] LABS: Thyroid Stimulating Hormone 2.112 uIu/ml (0.300-4.500)
[2025-01-05 00:20] LABS: Lyme Screen Rflx Confirmation Positive (Negative)
[2025-01-05 01:02] LABS: Lyme Ab IgG 2nd Tier Confirm Negative (Negative)
[2025-01-05 01:03] LABS: Lyme Ab IgM 2nd Tier Confirm Negative (Negative)
[2025-01-05] MEDS: cefTRIAXone SODIUM 2,000 MG/50 ML BAG IV STA (01:12)
[2025-01-05] MEDS ORDERED: MELATONIN 3 MG TAB PO PRN (02:22)
[2025-01-05] MEDS ORDERED: GLUCAGON FOR INJ 1 MG VIAL SQ PRN (02:22)
[2025-01-05] MEDS ORDERED: GLUCOSE 40% GEL 15 GM TUBE PO PRN (02:22)
[2025-01-05] MEDS ORDERED: GLUCOSE 10 TAB/TUBE PO PRN (02:22)
[2025-01-05] MEDS ORDERED: ACETAMINOPHEN 500 MG TAB PO PRN (02:22)
[2025-01-05] MEDS ORDERED: DEXTROSE 50% 50 ML SYRINGE IV PRN (02:22)
[2025-01-05] MEDS ORDERED: CARBOHYDRATES FOR HYPOGLYCEMIA PO PRN (02:22)
[2025-01-05] MEDS ORDERED: DOCUSATE SODIUM 100 MG CAP PO PRN (02:22)
--- NOTE | 2025-01-05 04:37 | History & Physical Report ---
Date of Service January 05, 2025 Assessment & Plan (1) Bigeminy: (2) Diastolic CHF: (3) Insulin dependent type 2 diabetes mellitus: (4) Chronic kidney disease, stage IV (severe): (5) Hypertension: (6) Dyslipidemia: Plan 74yo female with history of chronic diastolic HF, severe CKD (stage IV), HTN, HLP, DM, recent admission for acute hypoxic respiratory failure secondary to CHF exacerbation and rhinovirus infection returns to the ER at the request of her PCP for 2nd degree AV block noted on EKG performed in the office #Bigeminy - EKG here and telemetry notes bigeminy. No conduction block noted as of yet. TSH and electrolytes are WNL. Lyme screen POSITIVE with negative IgG/IgM confirmatory testing. Received Ceftriaxone x 2gm -Continue telemetry monitoring -Maintain electrolytes -Will continue patient's home Labetalol and Amlodipine for now -May need outpatient cardiac monitoring #Diastolic CHF- compensated -Continue home medications #CKD -compensated -Continue home medications - Sodium Zirconium, Calcitriol #Hypertension - elevated blood pressure presently -Continue AMlodipine and Labetalol, monitor for conduction abnormality #DM -Lantsu 15u BID with ISS. Patient states that her blood sugars have been low lateley Lovenox for DVT prophylaxis Admission and Anticipated Discharge Date Admission Date: January 05, 2025 History of Present Illness Chief Complaint: possible 2nd degree block Primary Care Provider: LISA Calle Elida Mei is a pleasant 74yo female with history of DM, HFpEF (EF 65-70% per echo 12/23/24), Severe CKD (Stage IV), HTN, HLP presenting with concern for possible second degree AV block. Patient was recently admitted to [facility] from 12/23 - 12/27 with acute on chronic HF and rhinovirus infection. She was treated with IV antibiotics and discharged home to complete course with Keflex. Patient was ultimately discharged home with home health. Patient reports that overall she feels that she is slowly improving. She still has some fatigue but otherwise feels that the cough is improving. NO chest pain, palpitations, dizziness, syncope. NO fevers or chills. No nausea/vomiting or diarrhea. No SOB. She was seen by her PCP today as a hospital followup and was noted to have an irregular rhythm. An EKG was obtained in the office and reportedly revealed Second Degree Mobitz Type II block. Patient's family today called the PCP because patient with HR in the 30's noted on pulse-oximetry at home. Patient is resting comfortably in bed with no complaints. She states that she overall feels that she is improving from her recent hospital stay. Her family at bedside is somewhat concerned about her due to some ongoing fatigue. Per review of hospital monitor and discussion with telemetry wrapping clerk, patient has been in bigeminy pattern since arriving to the ER. No conduction blocks noted. Allergies Allergy/AdvReac Type Severity Reaction Status Date / Time No Known Allergies Allergy Verified 01/04/25 10:20 Home Medications Medication Instructions Recorded Confirmed Type acetaminophen 500 mg tablet 1,000 mg PO Q6H PRN Pain 06/19/21 01/04/25 History lancets (Accu-Chek Softclix #200 ea 04/27/22 01/04/25 Rx Lancets) blood sugar diagnostic (Accu-Chek #100 ea 01/30/23 01/04/25 Rx Guide test strips) blood-glucose meter (Accu-Chek #1 ea 02/13/23 01/04/25 Rx Guide Glucose Meter) aspirin 81 mg tablet,delayed 81 mg PO QAM #0 tabs 03/20/23 01/04/25 Rx release cholecalciferol (vitamin D3) 125 125 mcg PO QAM 11/26/23 01/04/25 History mcg (5,000 unit) capsule cyanocobalamin (vitamin B-12) 1,000 mcg PO QAM 11/26/23 01/04/25 History 1,000 mcg tablet blood-glucose sensor (FreeStyle #3 ea 11/28/23 01/04/25 Rx Darek 3 Sensor device) amlodipine 10 mg tablet 10 mg PO HS #90 tabs 01/03/24 01/04/25 Rx pantoprazole 40 mg tablet,delayed 40 mg PO QAM #90 tabs 03/13/24 01/04/25 Rx release methimazole 10 mg tablet 5 mg (1/2 x 10 mg) PO QAM #90 tabs 06/08/24 01/04/25 Rx venlafaxine 150 mg 150 mg PO QAM #90 caps 06/08/24 01/04/25 Rx capsule,extended release 24 hr (Effexor XR) calcitriol 0.25 mcg capsule 0.25 mcg PO 3XWK #36 caps 08/04/24 01/04/25 Rx labetalol 100 mg tablet 100 mg PO BID #60 tabs 09/30/24 01/04/25 Rx empagliflozin 10 mg tablet 10 mg PO DAILY #30 tabs 10/02/24 01/04/25 Rx (Jardiance) insulin aspart U-100 100 unit/mL 1 sliding scale dose subcut DAILY 10/07/24 01/04/25 Rx (3 mL) subcutaneous pen (Novolog #15 mL FlexPen U-100 Insulin aspart) pen needle, diabetic 32 gauge x #100 ea 10/07/24 01/04/25 Rx 1/4" (CareFine Pen Needle) ferrous sulfate 325 mg (65 mg 325 mg PO BID #60 tabs 11/17/24 01/04/25 Rx iron) tablet (Feosol) folic acid 1 mg tablet 1 mg PO QAM #30 tabs 11/17/24 01/04/25 Rx furosemide 20 mg tablet (Lasix) 20 mg PO DAILY PRN leg swelling 11/17/24 01/04/25 Rx #90 tabs magnesium oxide 400 mg (241.3 mg 400 mg PO DAILY #90 tabs 11/17/24 01/04/25 Rx magnesium) tablet buspirone 15 mg tablet 15 mg PO BID #60 tabs 11/18/24 01/04/25 Rx epoetin rosa 40,000 unit/mL 40,000 unit subcut MONTHLY 12/10/24 01/04/25 History injection solution (Procrit) rosuvastatin 20 mg tablet 20 mg PO QAM 12/14/24 01/04/25 History sodium zirconium cyclosilicate 10 10 g PO 3XWK #12 ea 12/15/24 01/04/25 Rx gram oral powder packet (Lokelma) insulin glargine 100 unit/mL 44 unit (0.44 mL) subcut QAM #20 mL 12/21/24 01/04/25 Rx subcutaneous solution (Lantus U-100 Insulin) Oxygen Home 01/04/25 01/04/25 History ascorbic acid (vitamin C) 1,000 mg 1,000 mg PO QAM 01/04/25 01/04/25 History tablet (Vitamin C) Past Med/Surg History Problem List (Updated 01/05/25 @ 04:32 by Susanna Delgado DO) Bigeminy Second degree AV block, Mobitz type II (~01/04/25) Rhinovirus infection (Acute) Acute respiratory failure with hypoxia (Acute) Acute on chronic heart failure with preserved ejection fraction (HFpEF) (Acute) Acute hyperkalemia Orthostatic hypotension (Chronic) Urinary incontinence 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 joint pain Obesity Chronic low back pain Spinal stenosis, lumbar region with neurogenic claudication Major depressive disorder, recurrent, in partial remission Headaches due 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 Chronic kidney disease, stage IV (severe) TIA (transient ischemic attack) (Acute) Anxiety Diastolic CHF MCI (mild cognitive impairment) Iron deficiency anemia Secondary hyperparathyroidism Ketonuria (Acute) Diabetic nephropathy associated with type 2 diabetes mellitus Left cataract Vitamin D deficiency Nephrotic syndrome GERD without esophagitis Arthritis Hypertension Dyslipidemia HNP (herniated nucleus pulposus), lumbar Hyperthyroidism Medical History Recurrent UTI Leukocytosis Word finding difficulty Elevated troponin Vasovagal episode Melanoma of nose Major depressive disorder, recurrent severe without psychotic features Surgical History Status post trigger finger release History of repair of left rotator cuff History of repair of right rotator cuff History of colonoscopy History of melanoma excision History of tooth extraction all teeth removed History of bilateral cataract extraction S/P tonsillectomy S/P tubal ligation S/P cholecystectomy Family History Father Prostate cancer Diabetes Myocardial infarction Lung cancer Mother Diabetes Alzheimer disease Myocardial infarction Hypertension Brother COPD (chronic obstructive pulmonary disease) Other No family history of adverse response to anesthesia Denies family history of Ovarian cancer Breast cancer Colorectal cancer Social History Smoking Status: Never smoker Second Hand Exposure: No; Hx Alcohol Use: No Hx Substance Use: No Preferred Language: Montenegrin Communication Ability: Effective Visual Impairment: No Limitations Hearing Ability: Normal Outside Sales Manager Required: No Beliefs That Will Affect Care: None marital status: / Current Living Situation: Family Current Living Situation Comment: lives with daughter gray current occupational status: retired current occupation: retired - worked at [employer] Other Information That Helps Us Care for You: No Feels Safe at Home: Yes Safety Concerns: Feels Safe At This Time Childhood Exposure to Second-Hand Smoke: No Diet: regular caffeine: Yes (Soda x 10 cans per day.) during the past year weight has: remained stable Dental Care, Regularly: No Seatbelt Use: always Sunscreen Use: No Assistive Devices: Cane, Oxygen - at Night and Walker Review of Systems Review of Systems: All systems reviewed & are unremarkable except as noted in HPI & below Physical Exam Physical Exam: General: patient resting comfortably, NAD, non-toxic in appearance, AA&O x 4 Skin: warm, dry, intact, no rashes or lesions HEENT: NC/AT, PERRL, EOMI, anicteric sclera, conjunctiva without injection, external ear normal to inspection and nontender, nares patent, moist mucus membranes, dentition intact, no oropharyngeal lesions, neck supple, trachea midline, no LAD, no thyromegaly, no JVD Heart: +S1/S2, regularly irregular, no m/r/g Lungs: equal air entry bilaterally, coarse breath sounds anteriorly, scattered wheezing Abd: +BS, soft, NT/ND, no masses/organomegaly/ascites Ext: warm, 2+ pulses in UE/LE bilaterally, no clubbing/cyanosis or edema Neuro: nonfocal, patient AA&O x 4, speech intact, no facial droop, moving all extremities on command with equal strength 5/5 Results & Data Results & Data Vital Signs (Past 12 Hours) Vital Signs Temp Pulse Pulse Resp BP BP Pulse Ox 01/05/25 02:40 01/05/25 02:40 37.0 C 95 H 16 166/92 H 93 01/05/25 02:22 37.0 C 95 H 18 166/92 H 93 01/05/25 02:11 85 01/05/25 01:48 79 19 165/68 H 98 01/04/25 23:46 82 16 176/103 H 95 01/04/25 23:36 77 20 176/103 H 94 01/04/25 22:31 73 14 188/101 H 97 01/04/25 22:14 74 01/04/25 22:10 98 01/04/25 21:49 36.7 C 86 20 186/77 H 95 O2 Del Method O2 Flow Rate 01/05/25 02:40 Nasal Cannula 2 01/05/25 02:40 Room Air 01/05/25 02:22 Room Air 01/05/25 02:11 01/05/25 01:48 Room Air 01/04/25 23:46 Room Air 01/04/25 23:36 Room Air 01/04/25 22:31 01/04/25 22:14 01/04/25 22:10 Room Air 01/04/25 21:49 Room Air Laboratory Results Laboratory Results WBC 11.33 K/ul (4.8-10.8) H 01/04/25 22:55 RBC 2.49 M/uL (4.20-5.40) L 01/04/25 22:55 Hgb 7.5 g/dl (12.0-16.0) L 01/04/25 22:55 Hct 24.9 % (37.0-47.0) L 01/04/25 22:55 MCV 100.0 fL (80.0-100.0) 01/04/25 22:55 MCH 30.1 pg (25.0-34.0) 01/04/25 22:55 MCHC 30.1 g/dL (32.0-36.0) L 01/04/25 22:55 RDW Std Deviation 50.4 fL (36.4-46.3) H 01/04/25 22:55 RDW Coeff of Emil 13.9 % (11.5-14.5) 01/04/25 22:55 Plt Count 293 K/uL (130-400) 01/04/25 22:55 MPV 11.5 fL (9.4-12.4) 01/04/25 22:55 Immature Gran % (Auto) 0.4 % 01/04/25 22:55 Neut % (Auto) 63.4 % 01/04/25 22:55 Lymph % (Auto) 15.8 % 01/04/25 22:55 [place] % (Auto) 11.2 % 01/04/25 22:55 Eos % (Auto) 8.3 % 01/04/25 22:55 Baso % (Auto) 0.9 % 01/04/25 22:55 Neut # (Auto) 7.19 K/uL (1.40-6.50) H 01/04/25 22:55 Lymph # (Auto) 1.79 K/uL (1.20-3.40) 01/04/25 22:55 [place] # (Auto) 1.27 K/uL (0.11-0.59) H 01/04/25 22:55 Eos # (Auto) 0.94 K/uL (0.00-0.50) H 01/04/25 22:55 Baso # (Auto) 0.10 K/uL (0.00-0.20) 01/04/25 22:55 Immature Gran # (Auto) 0.04 K/uL (0.01-0.20) 01/04/25 22:55 RBC Morphology Unremarkable 01/04/25 22:55 Sodium 138 mmol/L (136-145) 01/04/25 22:55 Potassium 5.0 mmol/L (3.5-5.1) 01/04/25 22:55 Chloride 110 mmol/L (98-107) H 01/04/25 22:55 Carbon Dioxide 20 mmol/L (21-32) L 01/04/25 22:55 Anion Gap 8 (3-11) 01/04/25 22:55 BUN 45 mg/dl (6-23) H 01/04/25 22:55 Creatinine 2.07 mg/dl (0.6-1.2) H 01/04/25 22:55 Est Cr Clr Drug Dosing 20.3 ml/min 01/04/25 22:55 eGFR 24.54 01/04/25 22:55 BUN/Creatinine Ratio 21.7 (10-20) H 01/04/25 22:55 Glucose 186 mg/dl (70-99(Fasting)) H 01/04/25 22:55 Calcium 9.0 mg/dl (8.6-10.3) 01/04/25 22:55 Phosphorus 4.6 mg/dl (2.5-4.9) 01/04/25 22:55 Magnesium 2.2 mg/dl (1.7-2.4) 01/04/25 22:55 Total Bilirubin 0.3 mg/dl (0.2-1.0) 01/04/25 22:55 AST 10 U/L (13-39) L 01/04/25 22:55 ALT 8 U/L (7-52) 01/04/25 22:55 Alkaline Phosphatase 71 U/L (34-104) 01/04/25 22:55 Total Protein 7.1 gm/dl (6.0-8.3) 01/04/25 22:55 Albumin 3.3 gm/dl (3.4-5.0) L 01/04/25 22:55 Globulin 3.8 gm/dl (2.5-4.0) 01/04/25 22:55 Albumin/Globulin Ratio 0.9 (0.9-2) 01/04/25 22:55 TSH 2.112 uIu/ml (0.300-4.500) 01/04/25 22:55 Lyme Disease Screen Positive (Negative) H 01/04/25 22:55 Lyme Tier 2 IgG Confirm Negative (Negative) 01/04/25 22:55 Lyme Tier 2 IgM Confirm Negative (Negative) 01/04/25 22:55 Diagnostic Findings Per review of CXR - appears to have bilateral patchy infiltrates, possibly prog ressed from prior CXR from 12/22/24 ECG Additional Comments: Per independent review - EKG with SR with PACs in pattern of bigeminy, rate of 77bpm,, no acute ischemic changes Code Status & VTE Plan VTE Prophylaxis Plan VTE Prophylaxis will be ordered: Yes PG Care Time/CCT Total # of Minutes Spent Total Time Spent with Patient: Total time spent is greater than 50% in coordination of care (as documented) at patient's floor/unit and/or counseling patient: Coding Level of Care Code 39301 INT INP/OBS CARE 3/75MIN Diagnoses Bigeminy I49.8 Chronic diastolic congestive heart failure I50.32 Heart failure chronicity: chronic Insulin dependent type 2 diabetes mellitus E11.9; Z79.4 Chronic kidney disease, stage IV (severe) N18.4 Hypertension I10 Hypertension type: unspecified Dyslipidemia E78.5 (2) Diastolic CHF Heart failure chronicity: chronic Qualified Code(s): I50.32 - Chronic diastolic (congestive) heart failure (5) Hypertension Hypertension type: unspecified Qualified Code(s): I10 - Essential (primary) hypertension
--- NOTE | 2025-01-05 07:14 | XRay Report ---
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 COMPARISON: 22:55:11 [facility]. FINDINGS: Ill-defined opacities noted involving right perihilar region Cardiomegaly with bilateral prominent naif. Unfolding of aorta with aortic knuckle calcification. Diffuse prominent bronchovascular markings - suggestive of pulmonary congestion. No acute osseous abnormality. IMPRESSION: Ill-defined opacities noted involving right perihilar region-stable. Cardiomegaly with bilateral prominent naif. -increased Unfolding of aorta with aortic knuckle calcification.-stable. Diffuse prominent bronchovascular markings - suggestive of pulmonary congestion. -new finding. Electronically signed by Francois Espana 01-05-2025 07:14 AM
--- NOTE | 2025-01-05 07:22 | Hospitalist Progress Note ---
Date of Service January 05, 2025 Assessment & Plan (1) Bigeminy: (2) Second degree AV block, Mobitz type II: Plan In summary this is a 74-year-old female who presented due to symptomatic bradycardia #Intermittent arrhythmia // Atrial Bigeminy // Type II AV Block, Mobitz 2 In the outpatient setting the patient was found to have a type II Mobitz block based on documentation review however this EKG is not directly available for review; EKG obtained in the emergency department does reveal atrial bigeminy, but the patient was not exhibiting symptoms at the time of that diagnostic test; they are prescribed labetalol in the outpatient setting as part of their hypertensive regimen in the setting of their chronic kidney disease, this will be withheld to avoid iatrogenic bradycardia; given the patient's intermittent arrhythmia findings, and the significant morbidity and mortality that can occur with Mobitz type II blocks, cardiology has been consulted for further recommendations Maintain cardiac telemetry Withhold labetalol Maintain potassium greater than 4, magnesium greater than 2 Cardiology consulted With respect to the remainder of the patient's chronic medical conditions, they will be no adjustment to their home regimen at this time unless necessary as their clinical course unfolds Admission and Anticipated Discharge Date Admission Date: January 05, 2025 Subjective Ms. Mei is a 74-year-old female whose active medical conditions include chronic heart failure with preserved ejection fraction, type 2 diabetes mellitus with chronic insulin use, osteoarthritis of multiple joints, CKD stage IV due to combination of type 2 diabetes mellitus and hypertensive nephrosclerosis, secondary hyperparathyroidism among other chronic medical conditions who presented to [facility] on 01/04 due to symptomatic bradycardia. The patient was seen by the PCP on 01/04, an EKG was obtained at that time that is unable to be directly reviewed today however documentation does suggest that she exhibited a type II Mobitz block; they were referred to cardiology at that appointment. Later in the evening on the same day, the patient was found to be persistently bradycardic with associated symptoms, and they were advised to present to the emergency department for further evaluation. No acute overnight events, nor recurrent episodes of symptomatic bradycardia; patient feels well this morning with no specific complaints or concerns. Review of Systems Review of Systems: Review of constitutional, cardiovascular, pulmonary, genitourinary systems was unremarkable Results & Data Results & Data Vital Signs (Past 12 Hours) Vital Signs Temp Pulse Pulse Resp BP BP Pulse Ox 09/30/25 07:10 74 01/05/25 02:40 01/05/25 02:40 37.0 C 95 H 16 166/92 H 93 01/05/25 02:22 37.0 C 95 H 18 166/92 H 93 01/05/25 02:11 85 01/05/25 01:48 79 19 165/68 H 98 01/04/25 23:46 82 16 176/103 H 95 01/04/25 23:36 77 20 176/103 H 94 01/04/25 22:31 73 14 188/101 H 97 01/04/25 22:14 74 01/04/25 22:10 98 01/04/25 21:49 36.7 C 86 20 186/77 H 95 O2 Del Method O2 Flow Rate 01/05/25 07:10 01/05/25 02:40 Nasal Cannula 2 01/05/25 02:40 Room Air 01/05/25 02:22 Room Air 01/05/25 02:11 01/05/25 01:48 Room Air 01/04/25 23:46 Room Air 01/04/25 23:36 Room Air 01/04/25 22:31 01/04/25 22:14 01/04/25 22:10 Room Air 01/04/25 21:49 Room Air PG Care Time/CCT Total # of Minutes Spent Total Time Spent with Patient: Total time spent is greater than 50% in coordination of care (as documented) at patient's floor/unit and/or counseling patient: Coding Level of Care Code 32906 SUB INP/OBS CARE 2/35MIN Diagnoses Bigeminy I49.8 Second degree AV block, Mobitz type II I44.1
[2025-01-05 07:28] VITALS: RESP 18
[2025-01-05] MEDS: ROSUVASTATIN CALCIUM 20 MG TAB PO SCH (08:04)
[2025-01-05] MEDS: busPIRone 15 MG TAB PO SCH (08:04)
[2025-01-05] MEDS: MAGNESIUM OXIDE 400 MG TAB PO SCH (08:05)
[2025-01-05] MEDS: ASPIRIN 81 MG ECTAB PO SCH (08:05)
[2025-01-05] MEDS: VENLAFAXINE HCL XR 150 MG CAPXR PO SCH (08:05)
[2025-01-05] MEDS: HEPARIN SOD 5,000 UNIT/0.5 ML VIAL SQ SCH (08:10)
[2025-01-05] MEDS ORDERED: LABETALOL HCL 100 MG TAB PO SCH (09:00)
[2025-01-05] MEDS: LANTUS PER UNIT CHARGE SQ SCH (09:18)
[2025-01-05] MEDS: INSULIN ASPART PER UNIT CHARGE SC SCH (09:18)
[2025-01-05 11:26] VITALS: BP 162/69; PULSE 106; TEMP 98.8; O2SAT 94
--- NOTE | 2025-01-05 11:52 | Cardiology Consultation ---
Date of Consultation January 05, 2025 Assessment & Plan (1) Bigeminy: (2) Chest pain: (3) Dyspnea on exertion: Plan 1. Atrial bigeminy: There was some concern in her record about a "Mobitz 2" rhythm on EKG. No EKG demonstrating Mobitz 2 conduction is available for review. It is very possible that her frequent atrial ectopy resulted in a abnormal computer interpretation. Also reported to have a heart rate that was low on home monitoring. Again, likely artifactual given the atrial bigeminy. She does have atrial bigeminy. However, no evidence of heart block. She is not symptomatic from the arrhythmia. Overall rates are well-controlled. Preserved LV systolic function on her most recent echocardiogram. This could be related to her pulmonary issues. However, in the absence of overt symptoms no specific intervention required. 2. Chest pain: Constant. No elevation in cardiac biomarkers. Likely related to either pulmonary vascular congestion or her viral illness. 3. Dyspnea on exertion: Multifactorial. Likely an element of deconditioning. Also with recent viral pneumonia. She may have an element of pulmonary vascular congestion now encouraged more regular use of diuretic. Daily diuretic may be beneficial monitoring her electrolytes and renal function closely. 4. Heart failure with preserved ejection fraction: She had elevated BNP at the last visit. She may have an element of mild vascular congestion, but is lying flat in bed and did not describe orthopnea. No evidence of peripheral edema. At the last visit hospitalization she was encouraged to use her Lasix more regularly. She can continue her Jardiance. History of Present Illness Reason for Consultation: Abnormal EKG Requesting Physician: Sukhdeep Attending Physician: Clarke Tarango DO History of Present Illness The patient is a 74-year-old woman without a known history of cardiac disease who was noted at recent follow-up to have an abnormal EKG. Patient was warned about symptoms associated with her abnormal EKG and at the behest of her family eventually came to the hospital for an evaluation. the patient was recently hospitalized with some breathing difficulty and felt to have a rhinovirus pneumonia. There was some concern about heart failure with preserved ejection fraction at that time as well. She is known to have significant kidney disease. Patient was discharged home with supplemental oxygen and states that overall she had been feeling well. She continues to have an element of chronic chest discomfort that is fairly mild in nature. Not pleuritic in nature. Not associated with activity. At rest she feels quite well and states that she is improved from her discharge. She does get somewhat short of breath with activity. She states that prior to her most recent admission walking long distances or walking rapidly would cause some dyspnea. However, with mild activity no symptoms. She is ambulatory but will use a cart or some assistive device if she is walking longer distances. She denies any exertional chest pain. She has not been aware of any palpitations. She denies dizziness or lightheadedness. She cannot recall any syncopal episodes. Allergies Allergy/AdvReac Type Severity Reaction Status Date / Time No Known Allergies Allergy Verified 01/04/25 10:20 Home Medications Medication Instructions Recorded Confirmed Type acetaminophen 500 mg tablet 1,000 mg PO Q6H PRN Pain 06/19/21 01/04/25 History lancets (Accu-Chek Softclix #200 ea 04/27/22 01/04/25 Rx Lancets) blood sugar diagnostic (Accu-Chek #100 ea 01/30/23 01/04/25 Rx Guide test strips) blood-glucose meter (Accu-Chek #1 ea 02/13/23 01/04/25 Rx Guide Glucose Meter) aspirin 81 mg tablet,delayed 81 mg PO QAM #0 tabs 03/20/23 01/04/25 Rx release cholecalciferol (vitamin D3) 125 125 mcg PO QAM 11/26/23 01/04/25 History mcg (5,000 unit) capsule cyanocobalamin (vitamin B-12) 1,000 mcg PO QAM 11/26/23 01/04/25 History 1,000 mcg tablet blood-glucose sensor (FreeStyle #3 ea 11/28/23 01/04/25 Rx Darek 3 Sensor device) amlodipine 10 mg tablet 10 mg PO HS #90 tabs 01/03/24 01/04/25 Rx pantoprazole 40 mg tablet,delayed 40 mg PO QAM #90 tabs 03/13/24 01/04/25 Rx release methimazole 10 mg tablet 5 mg (1/2 x 10 mg) PO QAM #90 tabs 06/08/24 01/04/25 Rx venlafaxine 150 mg 150 mg PO QAM #90 caps 06/08/24 01/04/25 Rx capsule,extended release 24 hr (Effexor XR) calcitriol 0.25 mcg capsule 0.25 mcg PO 3XWK #36 caps 08/04/24 01/04/25 Rx labetalol 100 mg tablet 100 mg PO BID #60 tabs 09/30/24 01/04/25 Rx empagliflozin 10 mg tablet 10 mg PO DAILY #30 tabs 10/02/24 01/04/25 Rx (Jardiance) insulin aspart U-100 100 unit/mL 1 sliding scale dose subcut DAILY 10/07/24 01/04/25 Rx (3 mL) subcutaneous pen (Novolog #15 mL FlexPen U-100 Insulin aspart) pen needle, diabetic 32 gauge x #100 ea 10/07/24 01/04/25 Rx 1/4" (CareFine Pen Needle) ferrous sulfate 325 mg (65 mg 325 mg PO BID #60 tabs 11/17/24 01/04/25 Rx iron) tablet (Feosol) folic acid 1 mg tablet 1 mg PO QAM #30 tabs 11/17/24 01/04/25 Rx furosemide 20 mg tablet (Lasix) 20 mg PO DAILY PRN leg swelling 11/17/24 01/04/25 Rx #90 tabs magnesium oxide 400 mg (241.3 mg 400 mg PO DAILY #90 tabs 11/17/24 01/04/25 Rx magnesium) tablet buspirone 15 mg tablet 15 mg PO BID #60 tabs 11/18/24 01/04/25 Rx epoetin rosa 40,000 unit/mL 40,000 unit subcut MONTHLY 12/10/24 01/04/25 History injection solution (Procrit) rosuvastatin 20 mg tablet 20 mg PO QAM 12/14/24 01/04/25 History sodium zirconium cyclosilicate 10 10 g PO 3XWK #12 ea 12/15/24 01/04/25 Rx gram oral powder packet (Lokelma) insulin glargine 100 unit/mL 44 unit (0.44 mL) subcut QAM #20 mL 12/21/24 01/04/25 Rx subcutaneous solution (Lantus U-100 Insulin) Oxygen Home 01/04/25 01/04/25 History ascorbic acid (vitamin C) 1,000 mg 1,000 mg PO QAM 01/04/25 01/04/25 History tablet (Vitamin C) Patient History Medical History Recurrent UTI Leukocytosis Word finding difficulty Elevated troponin Vasovagal episode Melanoma of nose Major depressive disorder, recurrent severe without psychotic features Surgical History Status post trigger finger release History of repair of left rotator cuff History of repair of right rotator cuff History of colonoscopy History of melanoma excision History of tooth extraction all teeth removed History of bilateral cataract extraction S/P tonsillectomy S/P tubal ligation S/P cholecystectomy Family History Father Prostate cancer Diabetes Myocardial infarction Lung cancer Mother Diabetes Alzheimer disease Myocardial infarction Hypertension Brother COPD (chronic obstructive pulmonary disease) Other No family history of adverse response to anesthesia Denies family history of Ovarian cancer Breast cancer Colorectal cancer Social History Smoking Status: Never smoker Second Hand Exposure: No; Hx Alcohol Use: No Hx Substance Use: No Preferred Language: Romanian Communication Ability: Effective Visual Impairment: No Limitations Hearing Ability: Normal Protozoologist Required: No Beliefs That Will Affect Care: None marital status: / Current Living Situation: Family Current Living Situation Comment: lives with daughter gray current occupational status: retired current occupation: retired - worked at [employer] Other Information That Helps Us Care for You: No Feels Safe at Home: Yes Safety Concerns: Feels Safe At This Time Childhood Exposure to Second-Hand Smoke: No Diet: regular caffeine: Yes (Soda x 10 cans per day.) during the past year weight has: remained stable Dental Care, Regularly: No Seatbelt Use: always Sunscreen Use: No Assistive Devices: Cane, Oxygen - at Night and Walker Review of Systems Review of Systems: Per HPI Physical Exam Physical Exam: She is alert and oriented x3. Mood affect appear normal. She answered all questions appropriately. HEENT: Sclerae are anicteric. Pupils are equal and reactive to light and accommodation. Extraocular movements were intact. Neuro: Cranial nerves intact Lungs: Lungs are clear to auscultation bilaterally. There are no rales wheezes or rhonchi. She has normal respiratory effort without use of accessory muscles. There is normal pulmonary excursion. Cardiac: The rhythm was irregularly irregular. S1 and S2 were normal. There are no murmurs on examination. The PMI was not markedly displaced on palpation. Abdomen: The abdomen was soft and nontender. Extremities: Patient has bilateral radial pulses that are equal in intensity. There is no evidence cyanosis or clubbing. There was no evidence of significant peripheral edema bilaterally. Skin: There are no rashes noted on examination today. Some ecchymoses Results & Data Vital Signs (Past 12 Hours) Vital Signs Temp Pulse Pulse Resp BP Pulse Ox O2 Del Method 01/05/25 11:24 37.1 C 106 H 18 162/69 H 94 Nasal Cannula 01/05/25 10:26 Nasal Cannula 01/05/25 07:26 36.8 C 84 18 158/85 H 97 Nasal Cannula 01/05/25 07:10 74 01/05/25 02:40 Nasal Cannula 01/05/25 02:40 37.0 C 95 H 16 166/92 H 93 Room Air 01/05/25 02:22 37.0 C 95 H 18 166/92 H 93 Room Air 01/05/25 02:11 85 01/05/25 01:48 79 19 165/68 H 98 Room Air 01/04/25 23:46 82 16 176/103 H 95 Room Air O2 Flow Rate 01/05/25 11:24 2 01/05/25 10:26 2 01/05/25 07:26 2 01/05/25 07:10 01/05/25 02:40 2 01/05/25 02:40 01/05/25 02:22 01/05/25 02:11 01/05/25 01:48 01/04/25 23:46 Laboratory Results Abnormal Lab Results 01/04/25 01/05/25 22:55 08:05 WBC 11.33 H RBC 2.49 L Hgb 7.5 L Hct 24.9 L MCV 100.0 MCH 30.1 MCHC 30.1 L RDW Std Deviation 50.4 H RDW Coeff of Emil 13.9 Plt Count 293 MPV 11.5 Immature Gran % (Auto) 0.4 Neut % (Auto) 63.4 Lymph % (Auto) 15.8 Door % (Auto) 11.2 Eos % (Auto) 8.3 Baso % (Auto) 0.9 Neut # (Auto) 7.19 H Lymph # (Auto) 1.79 Door # (Auto) 1.27 H Eos # (Auto) 0.94 H Baso # (Auto) 0.10 Immature Gran # (Auto) 0.04 RBC Morphology Unremarkable Sodium 138 Potassium 5.0 Chloride 110 H Carbon Dioxide 20 L Anion Gap 8 BUN 45 H Creatinine 2.07 H Est Cr Clr Drug Dosing 20.3 eGFR 24.54 BUN/Creatinine Ratio 21.7 H Glucose 186 H POC Glucose 114 H Calcium 9.0 Phosphorus 4.6 Magnesium 2.2 Total Bilirubin 0.3 AST 10 L ALT 8 Alkaline Phosphatase 71 Total Protein 7.1 Albumin 3.3 L Globulin 3.8 Albumin/Globulin Ratio 0.9 TSH 2.112 Lyme Disease Screen Positive H Lyme Tier 2 IgG Confirm Negative Lyme Tier 2 IgM Confirm Negative Diagnostic Findings Echocardiogram 12/23/2024: Normal LV systolic function with ejection fraction of 65 to 70%. Mild left atrial dilation. Mild to moderate mitral annular calcification. Elevated RV systolic pressure estimated 50 to 60 mmHg. Dilated inferior vena cava. PG Care Time/CCT Total # of Minutes Spent Total Time Spent with Patient: Total time spent is greater than 50% in coordination of care (as documented) at patient's floor/unit and/or counseling patient: Coding Level of Care Code 92705 INT INP/OBS CARE 375MIN Diagnoses Bigeminy I49.8 Chest pain R07.9 Dyspnea on exertion R06.09
--- NOTE | 2025-01-05 14:57 | Discharge Summary ---
Discharge Summary Date of Service January 05, 2025 Principal Dx & Hospital Course #1 = Principal Diagnosis (1) Bigeminy: (2) Second degree AV block, Mobitz type II: Plan In summary this is a 74-year-old female who presented due to symptomatic bradycardia #Intermittent arrhythmia // Atrial Bigeminy // Type II AV Block, Mobitz 2 In the outpatient setting the patient was found to have a type II Mobitz block based on documentation review however this EKG is not directly available for review; EKG obtained in the emergency department does reveal atrial bigeminy, but the patient was not exhibiting symptoms at the time of that diagnostic test; cardiology was consulted and suspect the Mobitz type II was likely computer error, but pending official review of the EKG when available. They further recommended continuation of the patient's prior medical regimen, including labetalol, at discharge given the patient has been entirely asymptomatic With respect to the remainder of the patient's chronic medical conditions, they will be no adjustment to their home regimen at this time unless necessary as their clinical course unfolds Admission HPI Per Admitting Provider Elida Mei is a pleasant 74yo female with history of DM, HFpEF (EF 65-70% per echo 12/23/24), Severe CKD (Stage IV), HTN, HLP presenting with concern for possible second degree AV block. Patient was recently admitted to [facility] from 12/23 - 12/27 with acute on chronic HF and rhinovirus infection. She was treated with IV antibiotics and discharged home to complete course with Keflex. Patient was ultimately discharged home with home health. Patient reports that overall she feels that she is slowly improving. She still has some fatigue but otherwise feels that the cough is improving. NO chest pain, palpitations, dizziness, syncope. NO fevers or chills. No nausea/vomiting or diarrhea. No SOB. She was seen by her PCP today as a hospital followup and was noted to have an irregular rhythm. An EKG was obtained in the office and reportedly revealed Second Degree Mobitz Type II block. Patient's family today called the PCP because patient with HR in the 30's noted on pulse-oximetry at home. Patient is resting comfortably in bed with no complaints. She states that she overall feels that she is improving from her recent hospital stay. Her family at bedside is somewhat concerned about her due to some ongoing fatigue. Per review of property assessment monitor and discussion with telemetry stack clerk, patient has been in bigeminy pattern since arriving to the ER. No conduction blocks noted. Discharge Exam General: Adult female in no acute distress Vital Signs: Reviewed, telemetry consistent with persistent atrial bigeminy HEENT: Moist mucous membranes; pupils equally round reactive to light, extraocular motion intact Pulmonary: Symmetric chest wall excursion without restriction; clear to auscultation bilaterally Cardiovascular: Regularly irregular rhythm with controlled rate without murmurs, rubs, or gallops; S1 and S2 normal; bilateral radial pulse 2+ with brisk capilla ry refill Neurologic: Cranial nerves II through XII grossly intact; no discernible focal weakness nor paresthesia Discharge Plan Discharge Items Patient Disposition: Home - Self-Care Reason For Visit: POSSIBLE HEART BLOCK Discharge Diagnosis: Atrial bigeminy Condition on Discharge: Good Activity: Resume your previous activity Non-emergency contact: Primary Care Provider and Assembly Cleaner Call non-emergency contact if: you have any medication questions and your symptoms worsen Follow-up/Referrals: Ramirez Villela CRNP [Primary Care Provider] - 01/13/25 8:20 am Manuel Perdomo MD [Physician] - Diet: Carb Consistent or DM2 Fluids: 2000ml (8 cups) Ambulatory Orders: ECG holter monitor scan (Routine) Timeframe: 1 Week Location: Determined by Patient Ordered By: Clarke Ramon Attending Provider Instructions: You were admitted to the [facility] for observation due to concern for possible unstable cardiac arrhythmia; during your hospitalization there is no evidence of such an arrhythmia though you have been maintained in what is called atrial bigeminy, which may have been precipitated by a recent viral syndrome. You have not exhibited any episodes of sustained slow or excessively fast heart rhythms, low blood pressures, and you have remained pers istently asymptomatic throughout your entire hospitalization. Cardiology was consulted for additional recommendations; we have ordered a discharge and ambulatory athletic monitor to determine the degree of burden with respect to your heart arrhythmia. We recommend close follow-up with cardiology after completion of this monitor. Due to the nature of your sustained arrhythmia, electronic devices that check your heart rate will likely be an accurate, if you are feeling well, without any associated symptoms of a an excessively low heart rate such as lightheadedness, chest pain, shortness of breath with exertion then it is unlikely that you are experiencing a heart arrhythmia that would require emergent evaluation in the emergency department. If you have any questions please not hesitate contact your primary care provider, or if you feel you are experiencing an emergent event, return to the emergency department for further evaluation. Pending Studies at Discharge: No Stand-Alone Forms: [facility], Smoking Cessation Medications and DC Order Prescriptions: Continued cyanocobalamin (vitamin B-12) 1,000 mcg tablet 1,000 mcg PO QAM cholecalciferol (vitamin D3) 125 mcg (5,000 unit) capsule 125 mcg PO QAM (DME) Accu-Chek Guide test strips Strip See Rx Instructions .Route Qty: 100 5RF Rx Instructions: Test blood sugar TID amlodipine 10 mg tablet 10 mg PO HS Qty: 90 3RF pantoprazole 40 mg tablet,delayed release (DR/EC) 40 mg PO QAM Qty: 90 1RF venlafaxine [Effexor XR] 150 mg capsule,extended release 24hr 150 mg PO QAM Qty: 90 1RF methimazole 10 mg tablet 5 mg PO QAM Qty: 90 1RF calcitriol 0.25 mcg capsule 0.25 mcg PO 3XWK Qty: 36 3RF Rx Instructions: Saturday, Saturday, Saturday in the morning labetalol 100 mg tablet 100 mg PO BID Qty: 60 5RF furosemide [Lasix] 20 mg tablet 20 mg PO DAILY PRN (Reason: leg swelling) Qty: 90 1RF Rx Instructions: ON HOLD magnesium oxide 400 mg (241.3 mg magnesium) tablet 400 mg PO DAILY Qty: 90 1RF ferrous sulfate [Feosol] 325 mg (65 mg iron) tablet 325 mg PO BID Qty: 60 5RF folic acid 1 mg tablet 1 mg PO QAM Qty: 30 1RF buspirone 15 mg tablet 15 mg PO BID Qty: 60 3RF insulin glargine [Lantus U-100 Insulin] 100 unit/mL solution 44 unit subcut QAM MDD 60 Qty: 20 6RF (DME) lancets [Accu-Chek Softclix Lancets] Misc See Rx Instructions .Route Qty: 200 3RF Rx Instructions: As directed; BS TID (DME) blood-glucose meter [Accu-Chek Guide Glucose Meter] [facility] See Rx Instructions .Route Qty: 1 0RF Rx Instructions: As directed; BS TID Jardiance 10 mg tablet 10 mg PO DAILY Qty: 30 2RF insulin aspart U-100 [Novolog FlexPen U-100 Insulin] 100 unit/mL (3 mL) insulin pen 1 sliding scale dose subcut DAILY MDD 40 Qty: 15 2RF Rx Instructions: Inject 8 units before first meal of the day (DME) pen needle, diabetic [CareFine Pen Needle] 32 gauge x 1/4" needle See Rx Instructions .Route Qty: 100 6RF Rx Instructions: Inject twice daily (DME) FreeStyle Darek 3 Sensor Device See Rx Instructions .Route Qty: 3 3RF Rx Instructions: As directed Procrit 40,000 unit/mL solution 40,000 unit subcut MONTHLY Rx Instructions: Hold for Hgb 10 or greater (DME) Oxygen Home Liters Per Minute See Rx Instructions .ROUTE Rx Instructions: 2LPM while at home 3LPM when out. acetaminophen 500 mg Tablet 1,000 mg PO Q6H PRN (Reason: Pain) aspirin 81 mg Tablet,Delayed Release (Dr/Ec) 81 mg PO QAM Qty: 0 0RF Rx Instructions: buy over the counter, for stroke prevention rosuvastatin 20 mg tablet 20 mg PO QAM Lokelma 10 gram Powder In Packet 10 g PO 3XWK Qty: 12 0RF Rx Instructions: Take on Saturday ascorbic acid (vitamin C) [Vitamin C] 1,000 mg Tablet 1,000 mg PO QAM Discharge Orders: Discharge Order (Routine); Ordered 01/05/25 Ordered By: Clarke Tarango Admission Data Admit Date/Time: 01/05/25 00:40 Attending Provider: Clarke Tarango Admit Provider: Susanna Delgado Primary Care Provider: Ramirez Villela Other Providers: Susanna Delgado; Lennox Gambino; Celio Hernandez; Rickie Martin; Mitesh Kuhn; Jerald Aguila Jr; Efrain Salazar; Nakia Calle; Edilma Sanches; Manuel Faria; Manuel Perdomo; Sarah Solorzano; Vasiliy Lopez; Gema Bales; Vasiliy Wong; Alhaji Santiago; Ac Cabrera; Feng Coelho; Ramos Mcwilliams; Zafar Max; Shazia Jay; Preeti Wright Other Interventions: Discharge Summary Assessment (RN) Last Done: 01/05/25 13:46 Hospital Stay Data Consultations 01/04/25 23:55 ED Decision to Admit Stat 01/05/25 08:51 Consult Cardiology Routine Pending Results Patient Have Any Pending Studies at Discharge: No Discharge Instructions Given to Patient (Per Discharging Provider) You were admitted to the [facility] for observation due to concern for possible unstable cardiac arrhythmia; during your hospitalization there is no evidence of such an arrhythmia though you have been maintained in what is called atrial bigeminy, which may have been precipitated by a recent viral syndrome. You have not exhibited any episodes of sustained slow or excessively fast heart rhythms, low blood pressures, and you have remained persistently asymptomatic throughout your entire hospitalization. Cardiology was consulted for additional recommendations; we have ordered a discharge and ambulatory athletic monitor to determine the degree of burden with respect to your heart arrhythmia. We recommend close follow-up with cardiology after completion of this monitor. Due to the nature of your sustained arrhythmia, electronic devices that check your heart rate will likely be an accurate, if you are feeling well, without any associated symptoms of a an excessively low heart rate such as lightheadedness, chest pain, shortness of breath with exertion then it is unlikely that you are experiencing a heart arrhythmia that would require emergent evaluation in the emergency department. If you have any questions please not hesitate contact your primary care provider, or if you feel you are experiencing an emergent event, return to the emergency department for further evaluation. Total Time Total Time Spent Total Time Spent (In Minutes): I personally spent 70 minutes in the coordination of this patient's discharge including counselling at bedside, physical exam, review of EMR data from their current hospitalization as well as outpatient care provided 01/04, coordination of care with Cardiology, medication reconciliation at discharge, and referrals for continued care Coding Level of Care Code INP/OBS EV SAME DAY LV 2,70MIN Diagnoses Bigeminy I49.8 Second degree AV block, Mobitz type II I44.1
--- NOTE | 2025-01-05 18:10 | Electrocardiogram Report ---
Test Reason : Blood Pressure : */* mmHG Vent. Rate : 77 BPM Atrial Rate : 77 BPM P-R Int : 152 ms QRS Dur : 74 ms QT Int : 362 ms P-R-T Axes : * 12 37 degrees QTcB Int : 409 ms Sinus rhythm with Premature atrial complexes in a pattern of bigeminy Otherwise normal ECG When compared with ECG of 26-Dec-2024 05:06, No significant change was found Confirmed by Manuel Perdomo ([id number]) on 01/05/2025 6:09:50 PM Referred By: Ramirez Villela Confirmed By: Manuel Perdomo
[2025-01-06] MEDS ORDERED: CALCITRIOL 0.25 MCG CAPSULE PO SCH (09:00)
[2025-01-06] MEDS ORDERED: SODIUM ZIRCONIUM CYCLOSILICATE 10 GM PACKET PO SCH (15:00)
== END 2025-01-05 14:43 | disposition home or self-care (01) | DRG 309 ==
LOC: ED 21:46 → 2W 01-05 00:40 → SUATTDRO 01-05 00:40 → 2W 01-05 01:48